=== PATIENT | female | born 1955 | race African-American/Black ===

== ENCOUNTER 2020-05-21 08:00 | Day surgery (SDC) | payer OTHER ==
[2020-05-20 17:41] LABS: Urine Appearance CLOUDY; Urine Bilirubin NEGATIVE (NEG); Urine Blood TRACE (NEG); Urine Color YELLOW; Urine Glucose 1+ (NEG); Urine Protein TRACE (NEG); Urine Specific Gravity 1.015 (1.005-1.030); Urine Urobilinogen 0.2 mg/dL (0.2-1.0); Urine pH 5.5 (5.0-7.0)
[2020-05-20 17:42] LABS: Urine Microscopic Reflex ORDER UMIC
[2020-05-20 17:55] LABS: Absolute Lymphocytes (CBC) 2.5 K/uL (0.7-4.9); Basophils % 0.8 % (0-1.3); Hematocrit 36.2 % (36.0-45.0); Lymphocytes % 17.8 % (15.3-44.8); MPV 7.3 fL (7.6-11.3); Potassium 4.5 mmol/L (3.5-5.1); RBC Red Blood Cell Count 4.09 M/uL (3.86-4.86)
[2020-05-20 18:06] LABS: Urine Bacteria <20 /HPF (<20); Urine Coarse Granular Casts 0-5 /LPF (NONE SEEN); Urine Culture Reflex Order REFLEXED; Urine Mucus 1+ /HPF (NONE SEEN)
--- OUTSIDE RECORDS SUMMARY | 2020-05-21 08:02 | XMS REPORT | Continuity of Care Document ---
:[address] [facility] t Address [address] [place] [address] Dr. Holman. [address] [place] [address] Care Team Providers Name Role Phone Jr LINK, K.H. Attending Clinician Elaine LINK S Attending Clinician Nusrat SAUER, S Attending Clinician Doctor Unassigned, Name Attending Clinician Unavailable Mark LINK, R Attending Clinician Swati TINEO Attending Clinician Problems This patient has no known problems. Allergies, Adverse Reactions, Alerts This patient has no known allergies or adverse reactions. Medications This patient has no known medications. Procedures This patient has no known procedures. Encounters Start End Encounter Admission Attending Care Care Encounter Source Date/Time Date/Time Type Type Clinicians Facility Department ID 2020-05-18 2020-05-18 Telephone Jr [facility] [id number] 00:00:00 00:00:00 Zeny Abraham [id number] [place] [id number] [place] [id number] [address] 2020-05-17 2020-05-17 Emergency EDUARD Henry [id number] 21:53:00 23:29:00 Amanuel Abraham [id number] [place] [id number] [place] [id number] 2020-05-15 2020-05-15 Emergency [facility] [id number] 12:43:00 14:50:00 Lindsay Abraham [id number] [place] [id number] [place] [id number] 2020-05-15 2020-05-15 Orders Doctor GAUDENCIO [id number] 00:00:00 00:00:00 Only Unassigned, MAR[place] [id number] [place] [facility] [id number] 2020-05-12 2020-05-12 Telephone [facility] [id number] 00:00:00 00:00:00 Zeny Abraham [id number] [place] [id number] Profess [id number] nal 9 [facility] 2020-05-11 2020-05-11 Telephone Vinod Flores [facility] [id number] 00:00:00 00:00:00 [place] [id number] [facility] 4.2.7.2.686 [facility] [place] [id number] BLDG. 136 2020-04-29 2020-04-29 Refill [facility] [id number] 00:00:00 00:00:00 Zeny Abraham [id number] [place] 4.2.7.2.686 Professio [id number] nal 059 [facility] 2020-04-29 2020-04-29 Transition Yoselin Longoria [id number] 00:00:00 00:00:00 of Care Azalia Salmeron [id number] [place] [id number] [id number] [facility] 2020-04-28 2020-04-28 Transition Yoselin Longoria [id number] 00:00:00 00:00:00 of Care Azalia Salmeron [id number] [place] [id number] [id number] 2020-04-19 2020-04-19 Orders Doctor GAUDENCIO [id number] 00:00:00 00:00:00 Only Unassigned, MARCO [id number] [place] [facility] [id number] [id number] Results This patient has no known results.
--- OUTSIDE RECORDS SUMMARY | 2020-05-21 08:04 | XMS REPORT | Summary of Care ---
:[address] [facility] Next [employer] Address [address] [place] [address] Care Team Providers Name Role Phone Trish López Primary Care Provider Reason for Visit Reason Comments Refill Request Encounter Details Date Type Department Care Team Description 03/02/2020 Refill [facility] Cardiology- Zeny Norris MD Refill Request [place] [address] [facility], [address] [facility] 106 [address] [place] [address] [place] [address] [phone] Allergies Active Allergy Reactions Severity Noted Date Comments Meperidine Hcl Hives 08/08/2015 documented as of this encounter (statuses as of 03/05/2020) Medications Medication Sig Dispensed Refills Start Date End Date Status GLIPIZIDE ORAL Take 2 mg by mouth 0 Active 2 (two) times daily. insulin glargine inject 80 Units 0 Active (TOUJEO MAX SOLOSTAR) under the skin. 300 unit/mL (3 mL) InPn SERTraline 25 mg Take 50 mg by 0 Active tablet mouth daily. metFORMIN 1,000 mg Take 1,000 mg by 0 Active tablet mouth 2 (two) times daily with meals. lancets 30 gauge Misc USE TO TEST BLOOD 0 09/06/2018 Active GLUCOSE THREE TIMES DAILY ACCU-CHEK SMARTVIEW USE TO TEST BLOOD 0 09/06/2018 Active TEST STRIP strip GLUCOSE THREE TIMES DAILY 90 EASY TOUCH ALCOHOL USE TO TEST BLOOD 0 09/06/2018 Active PREP PADS PadM GLUCOSE THREE TIMES DAILY 90 insulin lispro inject 10 Units 1 Syringe 0 12/04/2018 Active protamine-insulin under the skin 2 lispro 100 unit/mL (two) times daily (50-50) before breakfast injectionIndications: and dinner. Acute cystitis with hematuria insulin lispro, human, inject 10 Units 1 Vial 0 12/04/2018 Active 100 unit/mL under the skin 2 injectionIndications: (two) times daily Hyperglycemia before breakfast and dinner. Additional information Patient taking differently: 10 Units Subcutaneous TIDAC, Reported on 02/25/2020 12:40 AM sitaGLIPtin (JANUVIA) 100 mg Take 1 tablet by 30 tablet 2 12/07 Active tabletIndications: Chest pain, mouth daily. unspecified type nitroglycerin 0.[address] 1 tablet under 30 tablet 3 03/12/2019 Active tablet the tongue every 5 (five) minutes as needed for Chest pain. alum-mag hydroxide-simeth Take 80 mL by mouth 360 mL 0 04/07 Active 200-200-20 mg/5 mL every 6 (six) hours. suspensionIndications: Symptomatic cholelithiasis traMADOL 50 mg Take 1 tablet by 8 tablet 0 04/21/2019 Active tabletIndications: Symptomatic mouth every 6 (six) cholelithiasis hours as needed for Pain (scale 1-3) or Pain (scale 4-6). acetaminophen (TYLENOL) 325 mg Take 2 tablets by 30 tablet 0 0 04/21/2019 Active tabletIndications: Symptomatic mouth every 6 (six) cholelithiasis hours. isosorbide mononitrate 60 mg 24 Take 1 tablet by 90 tablet 2 0 06/04/2019 Active hr tabletIndications: Coronary mouth daily. artery disease involving tribe coronary artery of tribe heart without angina pectoris, Obesity (BMI 30-39.9), Essential hypertension, IDDM (insulin dependent diabetes mellitus), Dyslipidemia, DAHL (dyspnea on exertion), Atypical chest pain amLODIPine 5 mg Take 1 tablet by 180 tablet 2 06/04/2019 Active tabletIndications: Atypical mouth 2 (two) times chest pain daily. atorvastatin 40 mg Take 1 tablet by 90 tablet 3 06/04/2019 Active tabletIndications: Coronary mouth at bedtime. artery disease involving tribe coronary artery of tribe heart without angina pectoris, Obesity (BMI 30-39.9), Essential hypertension, IDDM (insulin dependent diabetes mellitus), Dyslipidemia, DAHL (dyspnea on exertion), Atypical chest pain clopidogrel 75 mg Take 1 tablet by 90 tablet 3 06/04/2019 Active tabletIndications: Coronary mouth daily. artery disease involving tribe coronary artery of tribe heart without angina pectoris, Obesity (BMI 30-39.9), Essential hypertension, IDDM (insulin dependent diabetes mellitus), Dyslipidemia, DAHL (dyspnea on exertion), Atypical chest pain carvedilol 25 mg Take 1 tablet by 180 tablet 3 06/04/2019 Active tabletIndications: Coronary mouth 2 (two) times artery disease involving tribe daily with meals. coronary artery of tribe heart without angina pectoris, Obesity (BMI 30-39.9), Essential hypertension, IDDM (insulin dependent diabetes mellitus), Dyslipidemia, DAHL (dyspnea on exertion), Atypical chest pain ondansetron 4 mg disintegrating Take 1 tablet by 20 tablet 0 0 11/17/2019 Active tabletIndications: Post mouth every 8 (eight) concussion syndrome hours as needed for Nausea and Vomiting (N/V). meclizine 25 mg Take 1 tablet by 20 tablet 0 11/17/2019 Active tabletIndications: Post mouth every 6 (six) concussion syndrome hours. spironolactone (ALDACTONE) 25 Take 1 tablet by 90 tablet 3 Active mg tabletIndications: Coronary mouth daily. artery disease involving tribe coronary artery of tribe heart without angina pectoris, Obesity (BMI 30-39.9) BABY ASPIRIN ORAL Take 1 tablet by 0 Active mouth daily. losartan 50 mg tablet Take 50 mg by mouth 2 0 Active (two) times daily. 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 Abnormal serum level of lipase 09/04/2018 Calculus of gallbladder without cholecystitis without obstruction 09/04/2018 Liver lesion 09/04/2018 Abnormal nuclear stress test 08/10/2018 Essential hypertension 08/08/2018 Dyslipidemia 08/08/2018 Atypical chest pain 08/07/2018 Obesity (BMI 30-39.9) 03/27/2017 documented as of this encounter (statuses as of 03/05/2020) Immunizations Name Administration Dates Next Due Influenza Virus Vaccine Quad .5 mL IM 6+ MO 09/04/2018 Pneumococcal Polysaccharide, PPSV23 (PNEUMOVAX) 09/04/2018 documented as of this encounter Social History Tobacco Use Types Packs/Day Years Used Date Light Tobacco Smoker Smokeless Tobacco: Never Used Alcohol Use Drinks/Week oz/Week Comments Yes Financial Resource Strain Answer Date Recorded How hard is it for you to pay for the very basics like Not h jv at all 02/25/2020 food, housing, medical care, and heating? Food Insecurity Answer Date Recorded Within the past 12 months, you worried that your food would Never true 02/25/2020 run out before you got money to buy more. Within the past 12 months, the food you bought just didn't N ever true 02/25/2020 last and you didn't have money to get more. Transportation Needs Answer Date Recorded In the past 12 months, has lack of transportation kept you f rom No 02/25/2020 medical appointments or from getting medications? In the past 12 months, has lack of transportation kept you f rom No 02/25/2020 meetings, work, or getting things needed for daily living? Sex Assigned at Date Recorded Not on file Job Start Date Occupation Industry Not on file Not on file Not on file Travel History Travel Start Travel End No recent travel history available. COVID-19 Exposure Response Date Recorded In the last month, have you been in contact with No / Unsure 02/24/2020 10:24 PM CDT someone who was confirmed or suspected to have Coronavirus / COVID-19? documented as of this encounter Last Filed Vital Signs Not on filedocumented in this encounter Plan of Treatment Date Type Specialty Care Team Description 05/21/2020 Office Visit Cardiology Zeny Norris MD [address] [place] [phone] Health Maintenance Due Date Last Done Comments HEPATITIS C (HCV) SCREEN 1955 EYE EXAM 1966 URINE MICROALBUMIN 1966 DTaP,Tdap,and Td Vaccines (1 - 1967 Tdap) FOOT EXAM 1974 COLONOSCOPY 2006 Zoster Recombinant Vaccine 2006 (SHINGRIX) (1 of 2) LUNG CANCER SCREEN: Recommended 2011 for age 55-80 with 30 + pack year history PAP SMEAR 03/28/2014 03/28/2011, 01/23/2005 HgA1C 04/21/2019 10/22/2018, 09/03/2018, 08/07/2018 LDL-C 08/07/2019 08/07/2018 INFLUENZA VACCINE (Season Ended) 2020 09/04/2018 Breast Cancer Screening 10/29/2020 10/29/2019 (MAMMOGRAM) Depression Screening 11/21/2020 11/21/2019 CREATININE (SERUM) 02/23/2021 02/24/2020, 04/19/2019, 04/12/2019, Additional history exists PNEUMOCOCCAL 0-64 YEARS COMBINED Completed 09/04/2018 SERIES documented as of this encounter Implants Implanted Type Area Bridge Repair Crew Person Device Identifier Shelf Exp iration Model / Serial Date / Lot Stent STENT documented as of this encounter Results Not on filedocumented in this encounter Visit Diagnoses Diagnosis Coronary artery disease involving tribe coronary artery of tribe heart without angina pectoris Obesity (BMI 30-39.9) Obesity, unspecified documented in this encounter Insurance Payer Benefit Plan / Subscriber ID Effective Phone Address T e Group [facility] [id number] 2018-[facility] [employer] - HEALTHCARE ent Adv HM O MANAGED DUAL COMPLETE MEDICARE O [facility] MEDICAID OF xxxxxxxxx 2019-Pre [phone] Med[place] caid [place] sent [id number] [place] [address] documented as of this encounter
--- OUTSIDE RECORDS SUMMARY | 2020-05-21 08:04 | XMS REPORT | Summary of Care ---
:1955 Author Organization [facility] Address [address] [place] [address] Care Team Providers Name Role Phone Trish López Primary Care Provider Reason for Visit Reason Comments Transition Of Care Encounter Details Date Type Department Care Team Description 02/26/2020 Transition [facility] Care [facility] [address] [address] Allergies Active Allergy Reactions Severity Noted Date Comments Meperidine Hcl Hives 08/08/2015 documented as of this encounter (statuses as of 02/26/2020) Medications Medication Sig Dispensed Refills Start Date [...] tabletIndications: Coronary mouth daily. artery disease involving [place] coronary artery of [place] heart without angina pectoris, Obesity (BMI 30-39.9), Essential hypertension, IDDM (insulin dependent diabetes mellitus), Dyslipidemia, DAHL (dyspnea on exertion), Atypical chest pain amLODIPine 5 mg Take 1 tablet by 180 tablet 2 06/04/2019 Active tabletIndications: Atypical mouth 2 (two) times chest pain daily. atorvastatin 40 mg Take 1 tablet by 90 tablet 3 06/04/2019 Active tabletIndications: Coronary mouth at bedtime. artery disease involving [place] coronary artery of [place] heart without angina pectoris, Obesity (BMI 30-39.9), Essential hypertension, IDDM (insulin dependent diabetes mellitus), Dyslipidemia, DAHL (dyspnea on exertion), Atypical chest pain clopidogrel 75 mg Take 1 tablet by 90 tablet 3 06/04/2019 Active tabletIndications: Coronary mouth daily. artery disease involving [place] coronary artery of [place] heart without angina pectoris, Obesity (BMI 30-39.9), Essential hypertension, IDDM (insulin dependent diabetes mellitus), Dyslipidemia, DAHL (dyspnea on exertion), Atypical chest pain carvedilol 25 mg Take 1 tablet by 180 tablet 3 06/04/2019 Active tabletIndications: Coronary mouth 2 (two) times artery disease involving [place] daily with meals. coronary artery of [place] heart without angina pectoris, Obesity (BMI 30-39.9), [...] tabletIndications: Coronary mouth daily. artery disease involving [place] coronary artery of [place] heart without angina pectoris, Obesity (BMI 30-39.9) BABY ASPIRIN ORAL Take 1 tablet by 0 Active mouth daily. losartan 50 mg tablet Take 50 mg by mouth 2 0 Active (two) times daily. documented as of this encounter (statuses as of 02/26/2020) Active Problems Problem Noted Date Symptomatic cholelithiasis 03/21/2019 Overview: Added automatically from request for romy tamera [id number] IDDM (insulin dependent diabetes mellitus) 10/01/2018 Chest pain 09/04/2018 Coronary artery disease involving [place] coronary nahun ry of [place] heart 09/04/2018 with angina pectoris Abnormal serum level of lipase 09/04/2018 Calculus of gallbladder without cholecystitis without obstruction 09/04/2018 Liver lesion 09/04/2018 Abnormal nuclear stress test 08/10/2018 Essential hypertension 08/08/2018 Dyslipidemia 08/08/2018 Atypical chest pain 08/07/2018 Obesity (BMI 30-39.9) 03/27/2017 documented as of this encounter (statuses as of 02/26/2020) Immunizations Name Administration Dates Next Due Influenza [...] Cardiology Zeny Norris MD [address] [place] [phone] Health Maintenance Due Date Last Done [...] 09/04/2018 Breast Cancer Screening 10/29/2020 10/29/2019 (MAMMOGRAM) CREATININE (SERUM) 02/23/2021 02/24/2020, 04/19/2019, 04/12/2019, Additional history exists PNEUMOCOCCAL 0-64 YEARS COMBINED Completed 09/04/2018 SERIES documented as of this encounter Implants Implanted Type Area Dixonac Operator Device Identifier Shelf Exp iration Model / Serial Date / Lot Stent STENT documented as of this encounter Results Not on filedocumented in this encounter Insurance Payer Benefit Plan / Subscriber ID Effective Phone Address T ype Group Dates [facility] [id number] 2018-[facility] - HEALTHCARE ent Adv HM O MANAGED DUAL COMPLETE MEDICARE HMO [place] MEDICAID OF xxxxxxxxx 2019-Pre [phone] Med[place] caid [place] sent [phone] [place] [address] documented as of this encounter
--- OUTSIDE RECORDS SUMMARY | 2020-05-21 08:04 | XMS REPORT | Summary of Care ---
:1955 Author Organization [facility] [employer] [facility] Address [address] [place] [address] Care Team Providers Name Role Phone Trish Alatorre Primary Care Provider Reason for Referral Other (Routine) Status Reason Specialty Diagnoses / Referred By Referred To Procedures Contact Contact New Request Diagnoses Chest pain, unspecified type Michael Martin MD Cai, Qiangjun, MD Procedures Discharge Follow-up: Specialty Provider FREDI MOHAN; 2 Weeks [address] [address] [address] Phone: [place], [place] [phone] Fax: (Routine) Status Reason Specialty Diagnoses / Referred By Referred To Procedures Contact Contact New Request Diagnoses Chest pain, unspecified type Michael Martin MD Crook, Debra Kay Procedures Discharge Follow-up: PCP JANNIE ALATORRE; 1 Week 301 [facility] 210 [facility] 300 [address] [place], [place] Phone: [phone] Phone: Fax: Radiology Services (STAT) Status Reason Specialty Diagnoses / Referred By Referred To Procedures Contact Contact New Request Diagnostic Diagnoses Chest pain, unspecified type Adrian Romero, Radiology Procedures Chest 1 View 301 [facility] [address] [place] [address] Reason for Visit Reason Comments Arm Pain left Back Pain Auth/Cert Status Reason Specialty Diagnoses / Referred By Referred To Procedures Contact Contact Emergency Medicine [facility] [address] [place] [address] [place] [phone] Fax: Encounter Details Date Type Department Care Team Description 02/24/2020 - Emergency ADC Medicine Surgery Jalen Romero MD [address] [place] [address] [address] [place] [address] Chest pain 02/25/2020 Unit Nina Bates MD [address] [place] [address]. [place] [address] [place] [address] Dr [place], [place] [id number] Allergies Active Allergy Reactions Severity Noted Date Comments Meperidine Hcl Hives 08/08/2015 documented as of this encounter (statuses as of 02/25/2020) Medications Medication Sig Dispensed Refills Start Date [...] Reported on 02/25/2020 12:40 AM sitaGLIPtin (JANUVIA) Take 1 tablet by 30 tablet 2 12/26/2018 Active 100 mg mouth daily. tabletIndications: Chest pain, unspecified type nitroglycerin 0.[address] 1 tablet 30 tablet 3 03/12/2019 Active sublingual tablet under the tongue every 5 (five) minutes as needed for Chest pain. alum-mag Take 80 mL by 360 mL 0 04/21/2019 Activ e hydroxide-simeth mouth every 6 200-200-20 mg/5 mL (six) hours. suspensionIndications: Symptomatic cholelithiasis traMADOL 50 mg Take 1 tablet by 8 tablet 0 04/21/2019 Active tabletIndications: mouth every 6 Symptomatic (six) hours as cholelithiasis needed for Pain (scale 1-3) or Pain (scale 4-6). acetaminophen (TYLENOL) Take 2 tablets 30 tablet 0 04/21/2019 Active 325 mg by mouth every 6 tabletIndications: (six) hours. Symptomatic cholelithiasis isosorbide mononitrate Take 1 tablet by 90 tablet 2 06/04/2019 Active 60 mg 24 hr mouth daily. tabletIndications: Coronary artery disease involving choctaw coronary artery of choctaw heart without angina pectoris, Obesity (BMI 30-39.9), Essential hypertension, IDDM (insulin dependent diabetes mellitus), Dyslipidemia, DAHL (dyspnea on exertion), Atypical chest pain amLODIPine 5 mg Take 1 tablet by 180 tablet 2 06/04/2019 Active tabletIndications: mouth 2 (two) Atypical chest pain times daily. atorvastatin 40 mg Take 1 tablet by 90 tablet 3 06/04/2019 Active tabletIndications: mouth at Coronary artery disease bedtime. involving choctaw coronary artery of choctaw heart without angina pectoris, Obesity (BMI 30-39.9), Essential hypertension, IDDM (insulin dependent diabetes mellitus), Dyslipidemia, DAHL (dyspnea on exertion), Atypical chest pain clopidogrel 75 mg Take 1 tablet by 90 tablet 3 06/04/2019 Active tabletIndications: mouth daily. Coronary artery disease involving choctaw coronary artery of choctaw heart without angina pectoris, Obesity (BMI 30-39.9), Essential hypertension, IDDM (insulin dependent diabetes mellitus), Dyslipidemia, DAHL (dyspnea on exertion), Atypical chest pain carvedilol 25 mg Take 1 tablet by 180 tablet 3 06/04/2019 Active tabletIndications: mouth 2 (two) Coronary artery disease times daily with involving choctaw meals. coronary artery of choctaw heart without angina pectoris, Obesity (BMI 30-39.9), Essential hypertension, IDDM (insulin dependent diabetes mellitus), Dyslipidemia, DAHL (dyspnea on exertion), Atypical chest pain ondansetron 4 mg Take 1 tablet by 20 tablet 0 11/17/2019 Active disintegrating mouth every 8 tabletIndications: Post (eight) hours as concussion syndrome needed for Nausea and Vomiting (N/V). meclizine 25 mg Take 1 tablet by 20 tablet 0 11/17/2019 Active tabletIndications: Post mouth every 6 concussion syndrome (six) hours. spironolactone Take 1 tablet by 90 tablet 3 11/21/2019 Active (ALDACTONE) 25 mg mouth daily. tabletIndications: Coronary artery disease involving choctaw coronary artery of choctaw heart without angina pectoris, Obesity (BMI 30-39.9) BABY ASPIRIN ORAL Take 1 tablet by 0 Active mouth daily. losartan 50 mg tablet Take 50 mg by 0 Active mouth 2 (two) times daily. pregabalin (LYRICA) 75 Take 75 mg by 0 05/ 20 Discontinued mg capsule mouth 2 (two) /2019 (Hyun ent times daily. Reporte d) ranitidine 150 mg Take 150 mg by 0 05/20 Discontinued tablet mouth 2 (two) (Patie nt times daily. Reporte d) Magnesium Oxide 420 mg Take 800 mg by 60 tablet 0 12/26/2018 0 20 Discontinued TabIndications: Chest mouth daily. (Patient pain, unspecified type Reported) alum-mag Take 30 mL by 360 mL 0 04/21/201902/24 Disco ntinued hydroxide-simeth mouth every (MAALOX ADVANCED) (six) hours as 200-200-20 mg/5 mL needed for suspensionIndications: Indigestion or Obesity (BMI 30-39.9), Gas. Symptomatic cholelithiasis Hospital, Clinic, Ordered Dose Route Frequency Start Date End Date Status or Other Facility Administered Medication ceFAZolin (ANCEF) 1000 mg IVPB O.R. HOLDING 04/21/2019 02/25/20 2 Discontinued 1,000 mg in NaCl ONCE 0 0.9% (NS) 50 mL MINI-BAG documented as of this encounter (statuses as of 02/25/2020) Active Problems Problem Noted Date Symptomatic cholelithiasis 03/21/2019 Overview: Added automatically from request for romy philip [id number] IDDM (insulin dependent diabetes mellitus) 10/01/2018 Chest pain 09/04/2018 Coronary artery disease involving choctaw coronary nahun ry of choctaw heart 09/04/2018 with angina pectoris Abnormal serum level of lipase 09/04/2018 Calculus of gallbladder without cholecystitis without obstruction 09/04/2018 Liver lesion 09/04/2018 Abnormal nuclear stress test 08/10/2018 Essential hypertension 08/08/2018 Dyslipidemia 08/08/2018 Atypical chest pain 08/07/2018 Obesity (BMI 30-39.9) 03/27/2017 documented as of this encounter (statuses as of 02/25/2020) Immunizations Name Administration Dates Next Due Influenza Virus Vaccine Quad .5 mL IM 6+ MO 09/04/2018 Pneumococcal Polysaccharide, PPSV23 (PNEUMOVAX) 09/04/2018 documented as of this encounter Social History Tobacco Use Types Packs/Day Years Used Date Light Tobacco Smoker Smokeless Tobacco: Never Used Tobacco Cessation: Ready to Quit: No; Co unseling Given: No Alcohol Use Drinks/Week oz/Week Comments Yes Financial [...] of this encounter Last Filed Vital Signs Vital Sign Reading Time Taken Comments Blood Pressure 130/89 02/25/2020 4:01 PM CDT Pulse 76 02/25/2020 4:01 PM CDT Temperature 36.2 C (97.2 F) 02/25/2020 4:01 PM CDT Respiratory Rate 18 02/25/2020 4:01 PM CDT Oxygen Saturation 97% 02/25/2020 4:01 PM CDT Inhaled Oxygen - - Concentration Weight 89.8 kg (198 lb) 02/24/2020 10:30 Simultaneous f iling. PM CDT User may not hav e seen previous data. 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 AttachmentsThe following attachments cannot be sent through Care Everywhere. Chest Pain, Uncertain Cause (Ghanaian)documented in this encounter Progress Notes Radha Alexander - 02/25/2020 12:45 PM CDTRoutine rounding visit with patient who shared a bit of her narrative. During her narrative, patientshared concerned for a loved one which she stated she believes "has me here". She also shared her copra processor ing strategies when she is concerned about something. Patient seemed peaceful and joyful. Her charlotte in God gives her meaning and purpose. Database Architect facilitated story telling; reinforced appropriate coping strategies, explored issues of charlotte and belief, and encouraged self-care. Future in shop service technician supportis available if needed/wanted. Church Preference: [employer] TSApril aguirre LBSW - 02/25/2020 11:12 AM CDTSubjective Patient ID: Lauren Nolen is a 64 year old female. Care Management Social Functional Assessment Patient Name: Lauren Nolen Age: [age] year old Sex: female Patient's Previous Admission Date at [facility]: 08/10/2018 Current diagnosis and co-morbidities: chest pain Readmission Questions: Was patient discharged from any acute care hospital within the last 30 days: No Social Functional Assessment: Primary language spoken/preferred: Ghanaian Mental Status: Alert & Oriented to Person,Place & Time Information given by: Self Patient's support system: Other Name and number of support system: mario Loza [phone] Primary Radiology Rn: Self MPOA: No Living Arrangement: Home Address of living arrangement : [address] [place] [id number] Persons living in home: Self Barriers to returning home: None Baseline functional status- ambulation: Independent Functional status-baseline personal care: Independent Baseline functional status- driving: Independent Baseline functional status- grocery shopping: Independent Functional status-baseline housekeeping: Independent Functional status-baseline meal prep: Independent Current functional status same as prior: Yes Do you have a PCP?: Yes Name of PCP: Jannie Alatorre [facility] Care Agency: No Provider Services: No DME Company: No Equipment: None Hemodialysis: No Community resources utilized: None Funding Resources: Medicare Replacement;Medicaid Prescription coverage plan: Medicaid-3 slots Pharmacy where meds are filled: Other Other pharmacy: [facility] Anticipated services prior to disharge: Continue Medical Eval Expected mode of discharge transportation: Same as support system Additional Recommendations for DC: Medical clearance Additional info required for discharge planning: Pending medical evaluation Recommended discharge plan: Home SFA Complete: Social Functional Assessment complete: Yes Alcohol Use Screening (AUDIT-C) How often do you have a drink containing alcohol?: Never SCORE: 0 Did patient elect to have resources provided: No Role of Care Management explained. Any issues or concerns with obtaining/affording your medications at home: no. Are you or your support system able to corn picker medications at discharge: yes. Review of Systems Objective Physical Exam Assessment/Plan Home, no needs to report JOHN Lockhart Clinical Leader - Care Management [facility] [phone] [email or web address] documented in this encounter Plan of Treatment Date Type Specialty Care Team Description 05/21/2020 Office Visit Cardiology Zeny Norris MD [address] [place] [address] [place] [address] [phone] Name Type Priority Associated Diagnoses Date/Ti me URINE CULTURE LAB STAT Chest pain, unspecified typ e 02/24/2020 10:37 PM CDT Name Type Priority Associated Diagnoses Order S chedule URINE CULTURE LAB NENA Chest pain, unspecified ASA P for 1 Occurrences type starting 2019 until 0 CBC with Differential LAB Routine EVERY MORNING AT 0400 for 5 Occurrenc es starting 2019 until 0 Basic Metabolic Panel LAB Routine EVERY MORNING AT 0400 (NA, K, CL, CO2, GLUCOSE, fo r 5 Occurrences BUN, CREATININE, CA) startin g 02/26/2020 until 0 TROPONIN I LAB Routine EVERY 6 HOURS ( START TIME ADJUSTABLE ) START TIME ADJUSTABLE for 2 Occurrences sta rting 02/25/2020 unti l 02/25/2020, 1 c ompleted Glycosylated Hemoglobin LAB Routine ONCE for 1 Occurrences (A1C) starting 2019 until 0 ADC,CLC OR LCC ONLY - LAB Routine ONCE f or 1 Occurrences INFLUENZA A & B DIRECT start ing 02/25/2020 ANTIGEN until 0 Health Maintenance Due Date Last Done Comments [...] of this encounter Implants Implanted Type Area Department Director Device Identifier Shelf Exp iration Model / Serial Date / Lot Stent STENT documented as of this encounter Procedures Procedure Name Priority Date/Time Associated Comments Diagnosis POCT GLUCOSE Routine 02/25/2020 4:02 Results for this (AUTOMATED) PM CDT procedure are i n the results section. ECHO ROUTINE Routine 02/25/2020 11:09 Chest pain, W/DOPPLER COLOR AM CDT unspecified type POCT GLUCOSE Routine 02/25/2020 10:43 Results for this (AUTOMATED) AM CDT procedure are i n the results section. POCT GLUCOSE Routine 02/25/2020 7:57 Results for this (AUTOMATED) AM CDT procedure are i n the results section. TROPONIN I Routine 02/25/2020 3:15 Results for this AM CDT procedure are i n the results section. XR CHEST 1 VW STAT 02/24/2020 11:18 Chest pain, Results fo r this PM CDT unspecified type procedure a re in the results section. COVID-19 (PCR STAT 02/24/2020 10:37 Chest pain, Results fo r this MOLECULAR TESTING) PM CDT unspecified type proce dure are in the results section. ADC / LCC - DRUG STAT 02/24/2020 10:37 Chest pain, Results for this SCREEN TRIAGE PM CDT unspecified type procedure are in the results section. URINALYSIS STAT 02/24/2020 10:37 Chest pain, Results for this PM CDT unspecified type procedure a re in the results section. CBC WITH STAT 02/24/2020 10:34 Chest pain, Results for this DIFFERENTIAL PM CDT unspecified type procedure a re in the results section. ACTIVATED PARTIAL STAT 02/24/2020 10:34 Chest pain, Result s for this THRMPLAS AMBER PM CDT unspecified type procedure a re in the results section. PROTHROMBIN TIME / STAT 02/24/2020 10:34 Chest pain, Resul ts for this INR PM CDT unspecified type procedure a re in the results section. CBC WITH Routine 02/24/2020 10:34 Chest pain, Results for this DIFFERENTIAL PM CDT unspecified type procedure a re in the results section. ETHANOL STAT Add-On 02/24/2020 10:34 Chest pain, Results for this PM CDT unspecified type procedure a re in the results section. BASIC METABOLIC STAT 02/24/2020 10:34 Chest pain, Results for this PANEL (NA, K, CL, PM CDT unspecified type proced ure are in CO2, GLUCOSE, BUN, the resul ts CREATININE, CA) section. HEPATIC FUNCTION STAT 02/24/2020 10:34 Chest pain, Results for this PANEL (51470) PM CDT unspecified type procedure are in (ALB,T.PRO,BILI the results T,BU/BC,ALT,AST,ALK section. PHOS) TROPONIN I STAT 02/24/2020 10:34 Chest pain, Results for this PM CDT unspecified type procedure a re in the results section. LIPASE STAT 02/24/2020 10:34 Chest pain, Results for this PM CDT unspecified type procedure a re in the results section. EKG-12 LEAD Routine 02/24/2020 10:33 PM CDT EKG-12 LEAD STAT 02/24/2020 10:30 PM CDT CONSENT/REFUSAL FOR Routine 02/24/2020 10:09 DIAGNOSIS AND PM CDT TREATMENT NOTICE OF PRIVACY Routine 02/24/2020 10:08 PRACTICES PM CDT documented in this encounter Results POCT GLUCOSE (AUTOMATED) (02/25/2020 4:02 PM CDT) Pathologist Sig nature POCT GLU 245 (H) 70 - 110 mg/dL [facility] Specimen Blood Performing Organization Address [facility] [address]/[facility] Phone Number [facility] CLIA: [id number], [address] [place] [address] POCT GLUCOSE (AUTOMATED) (02/25/2020 10:43 AM CDT) Pathologist Sig nature POCT GLU 313 (H) 70 - 110 mg/dL [facility] Specimen Blood Performing Organization Address City/[facility] [address]/[facility] Phone Number [facility] CLIA: [id number], [address] [place], [place] [address] POCT GLUCOSE (AUTOMATED) (02/25/2020 7:57 AM CDT) Pathologist Sig nature POCT GLU 165 (H) 70 - 110 mg/dL [facility] Specimen Blood Performing Organization Address [facility] [address]/[facility] Phone Number [facility] CLIA: [id number], [address] [place], [place] [address] [facility] [address] TROPONIN I (02/25/2020 3:15 AM CDT) Pathologist Sig nature TROPONIN I <0.012 <=0.034 ng/mL [facility] Specimen Blood - ARM, RIGHT Narrative Performed At Equal or Less than 0.034 ng/ml---Normal [facility] Note: Cardiac troponin begins to rise 3-4 hours after the onset of ischemia. Repeat in 4-6 hours if the sample was drawn within 3-4 hours of the onset of the symptom and found normal. Between 0.035 and 0.120 ng/mL--- Borderline. Questionable myocardial injury or necros is Note: Serial measurement may be necessary to confirm or exclude the diagnosis of myocardial injury or necrosis; Clinical correlation (symptoms, EKGs, imaging studies, and others) required; Repeat in 4-6 hours if clinically indicated. Equal or Higher than 0.121 ng/mL---Abnormal. Myocardial Injury or Necrosis Likely Biotin has been reported to cause a negative bias, interpret results relative to patient's use of biotin. Performing Organization Address [facility] [address]/[facility] Phone Number [facility] CLIA: [id number], [address] [place] [address] [address] [facility] Chest 1 View (02/24/2020 11:18 PM CDT) Specimen Impressions Performed At PACS/VR/DOSE No acute cardiopulmonary process or inte rval abnormality. Preliminary Report Dictated by Resident: Wilbert Millan I, Mundo Denise MD., have reviewed this study and agree with the above report. Narrative Performed At EXAM: XR CHEST 1 VW PACS/VR/DOSE CLINICAL INDICATION: chest pain COMPARISON: 04/19/2019 TECHNIQUE: A frontal view of the chest w as obtained FINDINGS: No focal consolidation, pleural effusion , or pneumothorax. The cardiac silhouette is normal in size . No acute osseous abnormality. Procedure Note [facility], Radiant Results Inft User - 2019 2:25 AM CDT EXAM: XR CHEST 1 VW CLINICAL INDICATION: chest pain COMPARISON: 04/19/2019 TECHNIQUE: A frontal view of the chest w as obtained FINDINGS: No focal consolidation, pleural effusion , or pneumothorax. The cardiac silhouette is normal in size . No acute osseous abnormality. IMPRESSION No acute cardiopulmonary process or inte rval abnormality. Preliminary Report Dictated by Resident: Wilbert Millan I, Mundo Denise MD., have reviewed [facility] study and agree with the above report. Performing Organization Address [facility] [address]/[facility] Phone Number PACS/VR/DOSE URINALYSIS (02/24/2020 10:37 PM CDT) Pathologist Sig nature APPEARANCE Hazy (A) Clear [facility] COLOR Yellow Yellow [facility] PH 7.0 4.8 - 8.0 [facility] SP GRAVITY 1.013 1.003 - 1.030 [facility] GLU U QUAL Normal Normal [facility] BLOOD 1+ (A) Negative [facility] KETONES Negative Negative [facility] PROTEIN Negative Negative [facility] UROBILIN Normal Normal [facility] BILIRUBIN Negative Negative [facility] NITRITE Negative Negative [facility] LEUK JOYCE 250/uL (A) Negative [facility] RBC/HPF 10 (H) 0 - [address] [facility] WBC/HPF 61 (H) 0 - [address] [facility] BACTERIA Moderate (A) Negative [facility] SQ EPITH [address] [facility] YEAST BUD 5 (H) <=[address] [facility] Specimen Urine - URINE, CLEAN CATCH Performing Organization Address [facility] [address]/[facility] Phone Number [facility] CLIA: [id number], [address] [place], [place] [address] ADC / L[facility] - DRUG SCREEN TRIAGE (02/24/2020 10:37 PM CDT) Pathologist Sig nature BENZO U Negative Negative [facility] MICHELLE U Negative Negative [facility] AMPHET Negative Negative [facility] THC Negative Negative [facility] METHADONE Negative Negative [facility] Meth U Negative Negative [facility] OPIATES Negative Negative [facility] Cocaine Metabolite Negative Negative [facility] PROPOXY Negative Negative [facility] Tric U Negative Negative [facility] PCP Negative Negative [facility] OXYCOD Negative Negative [facility] Specimen Urine - URINE, CLEAN CATCH Narrative Performed At Urine Drug Cutoff Ranges [facility] Benzodiazepines: 150 ng/mL Barbiturates: 200 ng/mL Amphetamine: 500 ng/mL Cannabinoids: 50 ng/mL Methadone: 200 ng/mL Methamphetamine: 500 ng/mL Opiates: 100 ng/mL or 2000 ng/mL Cocaine: 150 ng/mL Propoxyphene: 300 ng/mL Tricyclics: 300 ng/mL Oxycodone: 100 ng/mL PCP: 25 ng/mL The results are to be used only for medical (i.e., treatment) purposes. Unconfirmed screening results must not be used for non-medical purposes (e.g., employment testing, legal testing). Performing Organization Address [facility] [address]/[facility] Phone Number [facility] CLIA: [id number], [address] [place] [address] [address] [facility] [address] CORONAVIRUS COVID-19 TESTING (02/24/2020 10:37 PM CDT) SARS-CoV-2 Rapid ID Not Detected Not Detected [facility] Specimen Swab - NASOPHARYNGEAL SWAB Narrative Performed At [facility] COVID-19 Assay is an isothermal nucleic [facility] acid amplification test intended for the qualitative detection of nucleic acid from SARS-CoV-2 viral RNA in nasopharyngeal (HEAD OF SALES) specimens. It is used under Emergency Use Authorization (EUA) by FDA. The limit of detection (LOD) of the assay is 125 Genome Equivalents/mL. A positive result is indicative of the presence of SARS-CoV-2 RNA. Clinical correlation with patient history and other diagnostic information is necessary to determine patient infection status. A negative (Not Detected) result does not preclude SARS-CoV-2 infection. Clinical correlation with patient history and other diagnostic information should be used in patient management decisions. Invalid: Please collect a new specimen for repeat patient testing if clinically indicated. Performing Organization Address [facility] [address]/[facility] Phone Number [facility] CLIA: [id number], [address] [place], [place] [address] [address] [facility] ETHANOL (02/24/2020 10:34 PM CDT) Pathologist Sig nature ALCOHOL <10 mg/dL [facility] Specimen Blood - VENOUS Narrative Performed At <[address] [facility] LABORATORY 50-100 Toxic >100 Depression of CENTRAL SERVICE TECH >400 Fatalities Reported Performing Organization Address City/State/Zipcode Phone Number [facility] CLIA: [id number], [address] [place], [place] [address] CBC WITH DIFFERENTIAL (02/24/2020 10:34 PM CDT) Pathologist Sig nature WBC 10.82 4.30 - 11.10 [facility] 10*3/L [facility] RBC 4.00 3.93 - 5.25 [facility] 10*6/L [facility] HGB 11.6 11.6 - 15.0 [facility] g/dL [facility] HCT 35.7 35.7 - 45.2 % [facility] MCV 89.3 80.6 - 95.[address] [facility] MCH 29.0 25.9 - 32.[address] [facility] MCHC 32.5 31.6 - 35.1 [facility] g/dL [facility] RDW-SD 41.1 39.0 - 49.[address] [facility] RDW-CV 12.4 12.0 - 15.5 % [facility] PLT 396 (H) 166 - 358 [facility] 10*3/L [facility] MPV 8.7 (L) 9.5 - 12.[address] [facility] NRBC/100 WBC 0.0 0.0 - 10.0 /100 [facility] WBCs [facility] NRBC x10^3 <0.01 10*3/L [facility] GRAN MAT (NEUT) % 66.3 % [facility] IMM GRAN % 0.60 % [facility] LYMPH % 22.3 % [facility] MONO % 8.6 % [facility] EOS % 1.9 % [facility] BASO % 0.3 % [facility] GRAN MAT x10^3(ANC) 7.18 (H) 1.88 - 7.09 [facility] 10*3/uL HOSPITAL LABORATORY IMM GRAN x10^3 0.06 0.00 - 0.06 [facility] 10*3/uL HOSPITAL LAB[facility]ORY LYMPH x10^3 2.41 1.32 - 3.29 [facility] 10*3/uL HOSPITAL LAB[facility]ATORY MONO x10^3 0.93 (H) 0.33 - 0.92 [facility] 10*3/uL HOSPITAL LAB[facility]ORY EOS x10^3 0.21 0.03 - 0.39 [facility] 10*3/uL HOSPITAL LAB[facility]ORY BASO x10^3 0.03 0.01 - 0.07 [facility] 10*3/uL HOSPITAL LABORATORY Specimen Blood - VENOUS Performing Organization Address City/State/Zipcode Phone Number [facility] CLIA: [id number], [address] [place] [address] Prothrombin Time (PT) / INR (02/24/2020 10:34 PM CDT) PROTIME PATIENT 12.5 12.0 - 14.7 [facility] LABORATORY INR 1.0Comment: Normal [facility] INR <1.1; Warfarin [facility] Therapeutic range LABORATORY 2.0 to 3.0 or 2.5 to 3.5, depending upon the indications. Specimen Blood - VENOUS Performing Organization Address [facility] [address]/[facility] Phone Number [facility] CLIA: [id number], [address] [place] [address] aPTT (02/24/2020 10:34 PM CDT) Pathologist Sig nature APTT Patient 28 23 - [address] [facility] Specimen Blood - VENOUS Narrative Performed At The [facility] patient population mean normal value [facility] for aPTT is 30 seconds. Performing Organization Address [facility] [address]/Zipcode Phone Number [facility] CLIA: [id number], [address] [place] [address] Troponin I (02/24/2020 10:34 PM CDT) Pathologist Sig nature TROPONIN I <0.012 <=0.034 ng/mL [facility] Specimen Blood - VENOUS Narrative Performed At Equal or Less than 0.034 ng/ml---Normal [facility] Note: Cardiac troponin begins to rise 3-4 hours after the onset of ischemia. Repeat in 4-6 hours if the sample was drawn within 3-4 hours of the onset of the symptom and found normal. Between 0.035 and 0.120 ng/mL--- Borderline. Questionable myocardial injury or necros is Note: Serial measurement may be necessary to confirm or exclude the diagnosis of myocardial injury or necrosis; Clinical correlation (symptoms, EKGs, imaging studies, and others) required; Repeat in 4-6 hours if clinically indicated. Equal or Higher than 0.121 ng/mL---Abnormal. Myocardial Injury or Necrosis Likely Biotin has been reported to cause a negative bias, interpret results relative to patient's use of biotin. Performing Organization Address City/[facility] [address]/[facility] Hospital[facility]ofl Phone Number [facility] CLIA: [id number], [address] [place] [address] Lipase Serum (02/24/2020 10:34 PM CDT) Pathologist Sig [facility] LIPASE 39 0 - 220 U/L [facility]OR[facility] Specimen Blood - VENOUS Performing Organization Address [facility] [address]/[facility] Phone Number [facility] CLIA: [id number], [address] [place] [address] Hepatic Function Panel (ALB, T.PRO, BILI T, BU/BC, ALT, AST, ALK PHOS) (02/24/2020 10:34 PM CDT) Pathologist Sig [facility] TOTAL BILI 0.4 0.1 - 1.1 mg/dL [facility] BILI UNCON 0.5 0.1 - 1.1 mg/dL [facility] BILI CONJ 0.0 0.0 - 0.3 mg/dL [facility] T PROTEIN 8.0 6.3 - 8.2 g/dL [facility] ALBUMIN 4.5 3.5 - 5.0 g/dL [facility] ALK PHOS 104 34 - 122 U/L [facility] ALTv 18 5 - 35 U/L [facility] AST(SGOT) 20 13 - 40 U/L [facility] Specimen Blood - VENOUS Performing Organization Address City/State/Zipcode Phone Number [facility] CLIA: [id number], [address] [place], [place] [address] Basic Metabolic Panel (NA, K, CL, CO2, GLUCOSE, BUN, CREATININE, CA) (02/24/2020 10:34 PM CDT) NA 144 135 - 145 [facility] mmol/L [facility] K 4.5 3.5 - 5.0 [facility] mmol/L [facility] CL 104 98 - 108 mmol/L [facility] CO2 TOTAL 30 23 - 31 mmol/L [facility] AGAP 10 2 - 16 [facility] BUN 23 7 - 23 mg/dL [facility] GLUCOSE 160 (H) 70 - 110 mg/dL [facility] CREATININE 1.27 (H) 0.50 - 1.04 [facility] mg/dL [facility] CALCIUM 10.1 8.6 - 10.6 [facility] mg/dL [facility] LAB[facility] eGFR Calculation 42.5 mL/min/1.73m2 [facility] (Non-[facility] LABORATORY Fijian) eGFR Calculation 51.5 mL/min/1.73m2 [facility] () [facility] LABOR[facility] Specimen Blood - VENOUS Narrative Performed At Association of Glomerular Filtration Rate (GFR) [facility] LABORATORY and Staging of Kidney Disease* + + +- + | GFR (mL/min/1.73 m2) | With Kidney Damage | Without Kidney Damage + + +- + | >90 | Stage one | Normal + + +- + | 60-89 | Stage two | Decreased GFR + + +- + | 30-59 | Stage three | Stage three + + +- + | 15-29 | Stage four | Stage four + + +- + | <15 (or dialysis) | Stage five | Stage five + + +- + *Each stage assumes the associated GFR level has been in effect for at least three months. Stages 1 to 5, with or without kidney disease, indicate chronic kidney disease. Notes: Determination of stages one and two (with eGFR >59mL/min/1.73 m2) requires estimation of kidney damage for at least three months as defined by structural or functional abnormalities of the kidney, manifested by either: Pathological abnormalities or Markers of kidney damage (including abnormalities in the composition of the blood or urine or abnormalities in imaging tests). Performing Organization Address City/State/Zipcode Phone Number [facility] CLIA: [id number], [address] [place], [place] [address] documented in this encounter Visit Diagnoses Diagnosis Chest pain, unspecified type - Primary Urinary tract infection with hematuria, site unspecified Abnormal nuclear stress test Other nonspecific abnormal cardiovascula r system function study Coronary artery disease involving [place] coronary artery of [place] heart with angina pectoris Dyslipidemia Other and unspecified hyperlipidemia Essential hypertension Unspecified essential hypertension IDDM (insulin dependent diabetes mellitu s) Type II or unspecified type diabetes mercedes litus without mention of complication, not stated as uncontrolled Obesity (BMI 30-39.9) Obesity, unspecified documented in this encounter Administered Medications Medication Order MAR Action Action Date Dose Rate Site acetaminophen (TYLENOL) tablet 650 mg 650 mg, Oral, Q6HPRN, Starting Sun at 0113, Until Discontinued, Routine, Pain (scale 1-3) amLODIPine (NORVASC) tablet 5 mg Given 02/25/2020 8:10 AM CDT 5 mg 5 mg, Oral, BID, First dose on Sun02/25/20 at 0800, Until Discontinued, Routine aspirin chewable tablet 81 mg Given 02/25/2020 8:10 AM CDT 81 mg 81 mg, Oral, DAILY, First dose on Sun02/25/20 at 0900, Until Discontinued, Routine carvediloL (COREG) tablet 25 mg Given 02/25/2020 5:22 PM CDT 25 mg 25 mg, Oral, BID MEALS, First dose on Sun02/25/20 at 0800, Until Discontinued, Routine Given 02/25/2020 8:11 AM CDT 25 mg cefTRIAXone (ROCEPHIN) 1,000 mg in NaCl 0.9% (NS) 50 mL MINI-BAG 1,000 mg, IV Piggyback, Q24H ABX, First dose on Emma at 0000, Until Discontinued, 50 mL, Reason for Anti-Infective: Empiri c Therapy for Suspected Infection, Empiric Therapy Site: Urine, Duration of th erapy: 7 days clopidogreL (PLAVIX) tablet 75 mg Given 02/25/2020 8:11 AM CDT 75 mg 75 mg, Oral, DAILY, First dose on Sun02/25/20 at 0900, Until Discontinued, Routine dextrose 50 % in water (D50W) injection 25 mL 25 mL, Slow IV Push, PRN, Starting Sun at 0558, Until Discontinued, NENA, Blood Glucose < or = 70 mg/dL and patien t is unable to swallow or has mental status changes. enoxaparin (LOVENOX) injection 40 mg Given 02/25/2020 8:18 AM CDT 40 mg Abdo men-SC 40 mg, Subcutaneous, DAILY, First dose on Sun02/25/20 at 0900, Until Discontinued, Routine glipiZIDE XL (GLUCOTROL XL) tablet 5 mg Given 02/25/2020 11:36 AM CDT 5 mg 5 mg, Oral, QAM WITH BREAKFAST, First dose on Sun02/25/20 at 1130, Until Discontinued glucagon (GLUCAGEN DIAGNOSTIC KIT) injec tion 1 mg 1 mg, Intramuscular, PRN, Starting Sun at 0558, Until Discontinued, NENA, Blood Glucose < or = 70 mg/dL and patient is unable to swallow or has mental changes. insulin glargine (LANTUS U-100) Given 02/25/2020 11:38 AM CDT 80 Units Abdomen-SC injection 80 Units 80 Units, Subcutaneous, DAILY, First dose on Sun02/25/20 at 1145, Until Discontinued morpHINE injection 2 mg Given 02/25/2020 8:11 AM CDT 2 mg 2 mg, Slow IV Push, Q4HPRN, Starting Sun02/25/20 at 0114, Until Emma 02/26/20 at 0113, Routine, Chest pain nitroglycerin (NITROSTAT) sublingual tab let 0.4 mg 0.4 mg, Sublingual, Q5MIN PRN, Starting Sun02/25/20 at 0136, Until Discontinued, Routine, Chest pain SERTraline (ZOLOFT) tablet 50 mg Given 02/25/2020 8:11 AM CDT 50 mg 50 mg, Oral, DAILY, First dose on Sun02/25/20 at 0900, Until Discontinued, Routine SITagliptin (JANUVIA) tablet 100 mg Given 02/25/2020 11:38 AM CDT 100 mg 100 mg, Oral, DAILY, First dose on Sun02/25/20 at 1145, Until Discontinued, Routine Sliding Scale Insulin-Regular + Given 02/25/2020 5:19 PM CDT 4 Units Abdomen-SC Fsbg Testing Subcutaneous, AC+HS, First dose on Sun02/25/20 at 0730, Until Discontinued, Routine Given 02/25/2020 11:37 AM CDT 8 Units Abdo men-SC spironolactone (ALDACTONE) tablet 25 mg Given 02/25/2020 8:10 AM CDT 25 mg 25 mg, Oral, DAILY, First dose on Sun02/25/20 at 0900, Until Discontinued, Routine traMADol (ULTRAM) tablet 50 mg Given 02/25/2020 3:20 AM CDT 50 mg 50 mg, Oral, Q8HPRN, Starting Sun02/25/20 at 0114, Until Sun02/27/20 at 0113, Routine, Pain (scale 4-6) Medication Order MAR Action Action Date Dose Rate Site aspirin tablet 325 mg Given 02/24/2020 11:40 PM CDT 325 mg 325 mg, Oral, ONCE, 1 dose, Sun02/25/20 at 0030, STAT cefTRIAXone (ROCEPHIN) 1,000 mg in NaCl Given 02/24/2020 11:42 P M CDT 1,000 mg 0.9% (NS) 50 mL MINI-BAG 1,000 mg, IV Piggyback, ONCE, 1 dose, Sun02/25/20 at 0030, 50 mL, Reason for Anti-Infective: Documented Infection, Documented Infection Site: Urine, Duration of Therapy: Other (see Comments) NaCl 0.9% (NS) IV infusion 1,000 New Bag 02/25/2020 3:08 AM C DT 1,000 mL 125 mL/hr mL at 125 mL/hr, IV Infusion, ONCE, 1 dose, Sun02/25/20 at 0215, Routine documented in this encounter Insurance Payer Benefit Plan / Subscriber ID Effective Phone Address T ype Group Dates [facility] [id number] 2018-Pres Medica re HEALTHCARE - HEALTHCARE ent Adv HM O MANAGED DUAL COMPLETE MEDICARE HMO [employer] MEDICAID OF xxxxxxxxx 2019-Pre [phone] Medi caid [place] sent [id number] [place] [address] documented as of this encounter
--- OUTSIDE RECORDS SUMMARY | 2020-05-21 08:05 | XMS REPORT | Summary of Care ---
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 [place] [address] Giant cell aortitis Professional Office 2, Ad[facility] Lab Building Phlebotomy Lab Professional Office Building [address] , [address] [place] [address] Allergies Active Allergy Reactions Severity Noted Date Comments Meperidine Hcl Hives 08/08/2015 documented as of this encounter (statuses as of 03/19/2020) Medications Medication Sig Dispensed Refills Start Date [...] tabletIndications: Coronary mouth daily. artery disease involving [place] coronary artery of [place] heart without angina pectoris, Obesity (BMI 30-39.9), Essential hypertension, IDDM (insulin dependent diabetes mellitus), Dyslipidemia, DAHL (dyspnea on exertion), Atypical chest pain amLODIPine 5 mg Take 1 tablet by 180 tablet 2 06/04/2019 Active tabletIndications: Atypical mouth 2 (two) times chest pain daily. atorvastatin 40 mg Take 1 tablet by 90 tablet 3 06/04/2019 Active tabletIndications: Coronary mouth at bedtime. artery disease involving [place] coronary artery of [place] heart without angina pectoris, Obesity (BMI 30-39.9), Essential hypertension, IDDM (insulin dependent diabetes mellitus), Dyslipidemia, DAHL (dyspnea on exertion), Atypical chest pain clopidogrel 75 mg Take 1 tablet by 90 tablet 3 06/04/2019 Active tabletIndications: Coronary mouth daily. artery disease involving [place] coronary artery of [place] heart without angina pectoris, Obesity (BMI 30-39.9), Essential hypertension, IDDM (insulin dependent diabetes mellitus), Dyslipidemia, DAHL (dyspnea on exertion), Atypical chest pain carvedilol 25 mg Take 1 tablet by 180 tablet 3 06/04/2019 Active tabletIndications: Coronary mouth 2 (two) times artery disease involving [place] daily with meals. coronary artery of [place] heart without angina pectoris, Obesity (BMI 30-39.9), [...] tabletIndications: Coronary mouth daily. artery disease involving [place] coronary artery of [place] heart without angina pectoris, Obesity (BMI 30-39.9) BABY ASPIRIN ORAL Take 1 tablet by 0 Active mouth daily. losartan 50 mg tablet Take 50 mg by mouth 2 0 Active (two) times daily. documented as of this encounter (statuses as of 03/19/2020) Active Problems Problem Noted Date Symptomatic cholelithiasis 03/21/2019 Overview: Added automatically from request for romy tamera [id number] IDDM (insulin dependent diabetes mellitus) 10/01/2018 Chest pain 09/04/2018 Coronary artery disease involving [place] coronary nahun ry of [place] heart 09/04/2018 with angina pectoris Abnormal serum level of lipase 09/04/2018 Calculus of gallbladder without cholecystitis without obstruction 09/04/2018 Liver lesion 09/04/2018 Abnormal nuclear stress test 08/10/2018 Essential hypertension 08/08/2018 Dyslipidemia 08/08/2018 Atypical chest pain 08/07/2018 Obesity (BMI 30-39.9) 03/27/2017 documented as of this encounter (statuses as of 03/19/2020) Immunizations Name Administration Dates Next Due Influenza [...] been in contact with No / Unsure 03/19/2020 9:24 AM CDT someone who was confirmed or suspected to have Coronavirus / COVID-19? documented as of this encounter Last Filed Vital Signs Not on filedocumented in this encounter Plan of Treatment Date Type Specialty Care Team Description 03/25/2020 Appointment Radiology Radiology [address] [place] [id number] 03/25/2020 Appointment Radiology Radiology [address] [place] [address] 05/21/2020 Office Visit Cardiology Zeny Norris MD [address] [place], [place] [address] Health Maintenance Due Date Last Done [...] (MAMMOGRAM) Depression Screening 11/21/2020 11/21/2019 CREATININE (SERUM) 03/06/2021 03/06/2020, 02/24/2020, 04/19/2019, Additional history exists PNEUMOCOCCAL 0-64 YEARS COMBINED Completed 09/04/2018 SERIES documented as of this encounter Implants Implanted Type Area Bench Hand Machine Device Identifier Shelf Exp iration Model / Serial Date / Lot Stent STENT documented as of this encounter Results Not on filedocumented in this encounter Visit Diagnoses Diagnosis Giant cell aortitis Giant cell arteritis documented in this encounter Insurance Payer Benefit Plan / Subscriber ID Effective Phone Address T ype Group Dates [facility] [id number] 2018-Pres Medica HEALTHCARE - HEALTHCARE ent Adv HM O MANAGED DUAL COMPLETE MEDICARE HMO [facility] MEDICAID OF xxxxxxxxx 2019-Pre [phone] Medi caid [place] sent [id number] [place] [address] documented as of this encounter
--- OUTSIDE RECORDS SUMMARY | 2020-05-21 08:05 | XMS REPORT | Summary of Care ---
:1955 Author Organization [facility] Address [address] [place] [phone] Care Team Providers Name Role Phone Trish López Primary Care Provider Reason for Referral (Routine) Status Reason Specialty Diagnoses / Referred By Referred To Procedures Contact Contact New Request Ophthalmology Diagnoses Poorly controlled diabetes mellitus Giant cell aortitis Gabriel Rodriguez Procedures CONSULT/REFERRAL OPHTHALMOLOGY Preferred location: Gracia Jackson MD [address] [place] [phone] Reason for Visit Reason Comments Establish Care fatigue Other (STAT) Status Reason Specialty Diagnoses / Referred By Contact Refe rred To Contact Procedures Closed Neurology Diagnoses Severe headache Ibikunle, Foljannetho Gabriel Rodriguez, Procedures Discharge Follow-up: Specialty Provider GABRIEL RODRIGUEZ; 2 Days F, 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 [address] [place] [phone] Phone: Encounter Details Date Type Department Care Team Description 03/19/2020 Office Visit [facility] Gabriel Rodriguez Poorly contr olled diabetes mellitus (Primary Dx); Neurology-Jarad Jackson MD Early onset Alzheimer's dementia without behavioral disturbance; [address], [address] [place] [phone] Allergies Active Allergy Reactions Severity Noted Date Comments Meperidine Hcl Hives 08/08/2015 documented as of this encounter (statuses as of 03/24/2020) Medications Medication Sig Dispensed Refills Start Date [...] (JANUVIA) 100 mg Take 1 tablet by mouth 30 tablet 2 12/26/2018 Active tabletIndications: Chest pain, daily. unspecified type nitroglycerin 0.[address] 1 tablet under 30 tablet 3 03/12/20 19 Active sublingual tablet the tongue every 5 (five) minutes as needed for Chest pain. alum-mag hydroxide-simeth Take 80 mL by mouth 360 mL 0 04/07 Active 200-200-20 mg/5 mL every 6 (six) hours. suspensionIndications: Symptomatic cholelithiasis traMADOL 50 mg Take 1 tablet by mouth 8 tablet 0 04/21/2019 Active tabletIndications: Symptomatic every 6 (six) hours as cholelithiasis needed for Pain (scale 1-3) or Pain (scale 4-6). acetaminophen (TYLENOL) 325 mg Take 2 tablets by 30 tablet 0 0 04/21/2019 Active tabletIndications: Symptomatic mouth every 6 (six) cholelithiasis hours. isosorbide mononitrate 60 mg Take 1 tablet by mouth 90 tablet 2 06/04/2019 Active 24 hr tabletIndications: daily. Coronary artery disease involving washoe coronary artery of washoe heart without angina pectoris, Obesity (BMI 30-39.9), Essential hypertension, IDDM (insulin dependent diabetes mellitus), Dyslipidemia, DAHL (dyspnea on exertion), Atypical chest pain amLODIPine 5 mg Take 1 tablet by mouth 180 tablet 2 06/04/2019 Active tabletIndications: Atypical 2 (two) times daily. chest pain atorvastatin 40 mg Take 1 tablet by mouth 90 tablet 3 06/04/20 19 Active tabletIndications: Coronary at bedtime. artery disease involving washoe coronary artery of washoe heart without angina pectoris, Obesity (BMI 30-39.9), Essential hypertension, IDDM (insulin dependent diabetes mellitus), Dyslipidemia, DAHL (dyspnea on exertion), Atypical chest pain clopidogrel 75 mg Take 1 tablet by mouth 90 tablet 3 9 Active tabletIndications: Coronary daily. artery disease involving washoe coronary artery of washoe heart without angina pectoris, Obesity (BMI 30-39.9), Essential hypertension, IDDM (insulin dependent diabetes mellitus), Dyslipidemia, DAHL (dyspnea on exertion), Atypical chest pain carvedilol 25 mg Take 1 tablet by mouth 180 tablet 3 9 Active tabletIndications: Coronary 2 (two) times daily artery disease involving with meals. washoe coronary artery of washoe heart without angina pectoris, Obesity (BMI 30-39.9), Essential hypertension, IDDM (insulin dependent diabetes mellitus), Dyslipidemia, DAHL (dyspnea on exertion), Atypical chest pain ondansetron 4 mg Take 1 tablet by mouth 20 tablet 0 11/17/2019 Active disintegrating every 8 (eight) hours tabletIndications: Post as needed for Nausea concussion syndrome and Vomiting (N/V). meclizine 25 mg Take 1 tablet by mouth 20 tablet 0 11/17/2019 Active tabletIndications: Post every 6 (six) hours. concussion syndrome spironolactone (ALDACTONE) 25 Take 1 tablet by mouth 90 tablet 3 11/21/2019 Active mg tabletIndications: Coronary daily. artery disease involving washoe coronary artery of washoe heart without angina pectoris, Obesity (BMI 30-39.9) BABY ASPIRIN ORAL Take 1 tablet by mouth 0 Active daily. losartan 50 mg tablet Take 50 mg by mouth 2 0 Active (two) times daily. predniSONE 20 mg tablet Take three 20mg 50 tablet 0 03/23/2020 Active tablets daily x 5 days, then take two and a half 20 mg tablets x 5 days, then take two 20 mg tablets continuing thereafter. documented as of this encounter (statuses as of 03/24/2020) Active Problems Problem Noted Date Symptomatic cholelithiasis 03/21/2019 Overview: Added automatically from request for romy philip [id number] IDDM (insulin dependent diabetes mellitus) 10/01/2018 Chest pain 09/04/2018 Coronary artery disease involving washoe coronary nahun ry of washoe heart 09/04/2018 with angina pectoris Abnormal serum level of lipase 09/04/2018 Calculus of gallbladder without cholecystitis without obstruction 09/04/2018 Liver lesion 09/04/2018 Abnormal nuclear stress test 08/10/2018 Essential hypertension 08/08/2018 Dyslipidemia 08/08/2018 Atypical chest pain 08/07/2018 Obesity (BMI 30-39.9) 03/27/2017 documented as of this encounter (statuses as of 03/24/2020) Immunizations Name Administration Dates Next Due Influenza [...] Sign Reading Time Taken Comments Blood Pressure 116/79 03/19/2020 8:35 AM CDT Pulse 85 03/19/2020 8:35 AM CDT Temperature 36.2 C (97.2 F) 03/19/2020 8:35 AM CDT Respiratory Rate 18 03/19/2020 8:35 AM CDT Oxygen Saturation - - Inhaled Oxygen Concentration - - Weight 89.2 kg (196 lb 9.6 oz) 03/19/2020 8:35 AM CDT Height 167.6 cm (5' 6") 03/19/2020 8:35 AM CDT Body Mass Index 31.73 03/19/2020 8:35 AM CDT documented in this encounter Progress Notes Gabriel Rodriguez MD - 03/19/2020 8:40 AM CDT HISTORY OF PRESENT ILLNESS: Lauren Nolen is a 64 year old female. Chief complaint: Head pain. History: The patient had been seen in the emergency room in [place] in reference to head pain. The emergency room physician thought that the patient may be suffering with temporal arteritis because she did have a sedimentation rate that had been elevated at 65. She had been placed on steroids but shehas not been taking them as instructed, I think she had run out. She did say that yesterday she tooka 20 mg prednisone dosage. What is complicated about her cases that she has poor glycemic control and she does have a history of diabetes. In terms of the symptoms, actually she has been having problems for a couple of years. She has also been to numerous ERs recently as well because of her symptoms and she doesn't think that anyone is really paying attention to her. It is hard to really determine her symptoms. They seem to be episodic, and she gets fatigued when she has the head pain. At 1st I thought she was going to say that it was behind her ears. But it seems to involve the area of the head around the helix but can generalize. That means it would involve the entire head. She told our nurse that it feels that around the left ear that bugs are crawling into her brain. She has had some episodesof visual blurring as well but she has not lost vision and right now she is not having any problems with her vision. There has been no focal arm or leg weakness or loss of speech. She did also have a CT scan of the head done without contrast, and that study was unremarkable. ROS questions to the patient. Cardiac: chest pain, shortness of breath, easy fatigue, arrhythmia, swelling of legs. Respiratory: cough, with sputum production, wheezing, insomnia. Gastric: nausea, vomiting, diarrhea, poor appetite, blood in stool, difficult swallow. Urinary: pain with urination, blood with urination, incontinence, difficulty urinating. Skin: discoloration, itching, change in hair or nails, skin breakdown. Hematology/immunology: easy bruising, malignancy. Head, nose, throat: ringing of ears, loss of hearing, nosebleeds, sores in mouth, hoarseness, facial pain. Neurology: dizziness, tremor, change in speech, seizures, fainting spells, loss of memory, weakness arm or leg, numbness arm or leg. Endocrine: hot cold intolerance, excessive urination, increased thirst, increased sweating. Psychiatric: disorientation, depression, anxiety, mood disorder, loss of contact with reality, anger. Eyes: change in vision, eye pain, double vision, blurred vision, eyelid droop. Skeletal: pain in joints, muscle pain, back pain, neck pain, swelling of joints, swelling of the hands. The patient's responses to these questions about signs/symptoms follow. She did not respond positively to any of the review of systems questions except that she does have pain in her legs at times almost like cramping. Radiology: Chest 1 View Result Date: 02/25/2020 No acute cardiopulmonary process or interval abnormality. Preliminary Report Dictated by Resident: Wilbert Millan I, Mundo Denise MD., have reviewed this study and agree with the above report. Ct Head Wo Contrast Result Date: 03/06/2020 No acute intracranial abnormality. Preliminary Report Dictated by Resident: Melecio Stanton I, Tristian Gross MD., have reviewed this study and agree with the above report. PMH: has a past medical history of Acid reflux, Coronary artery disease, Diabetes, Gallbladder stone with nonacute cholecystitis, Hyperlipidemia, Hypertension, and Obesity. Current Outpatient Medications: BABY ASPIRIN ORAL, Take 1 tablet by mouth daily., Disp: , Rfl: losartan 50 mg tablet, Take 50 mg by mouth 2 (two) times daily., Disp: , Rfl: spironolactone (ALDACTONE) 25 mg tablet, Take 1 tablet by mouth daily., Disp: 90 tablet, Rfl: 3 ondansetron 4 mg disintegrating tablet, Take 1 tablet by mouth every 8 (eight) hours as needed for Nausea and Vomiting (N/V)., Disp: 20 tablet, Rfl: 0 amLODIPine 5 mg tablet, Take 1 tablet by mouth 2 (two) times daily., Disp: 180 tablet, Rfl: 2 atorvastatin 40 mg tablet, Take 1 tablet by mouth at bedtime., Disp: 90 tablet, Rfl: 3 carvedilol 25 mg tablet, Take 1 tablet by mouth 2 (two) times daily with meals., Disp: 180 tablet, Rfl: 3 clopidogrel 75 mg tablet, Take 1 tablet by mouth daily., Disp: 90 tablet, Rfl: 3 isosorbide mononitrate 60 mg 24 hr tablet, Take 1 tablet by mouth daily., Disp: 90 tablet, Rfl:2 acetaminophen (TYLENOL) 325 mg tablet, Take 2 tablets by mouth every 6 (six) hours., Disp: 30 tablet, Rfl: 0 nitroglycerin 0.4 mg sublingual tablet, Place 1 tablet under the tongue every 5 (five) minutesas needed for Chest pain., Disp: 30 tablet, Rfl: 3 sitaGLIPtin (JANUVIA) 100 mg tablet, Take 1 tablet by mouth daily., Disp: 30 tablet, Rfl: 2 insulin lispro protamine-insulin lispro 100 unit/mL (50-50) injection, inject 10 Units under the skin 2 (two) times daily before breakfast and dinner., Disp: 1 Syringe, Rfl: 0 insulin lispro, human, 100 unit/mL injection, inject 10 Units under the skin 2 (two) times daily before breakfast and dinner. (Patient taking differently: inject 10 Units under the skin 3 (three) times daily before meals.), Disp: 1 Vial, Rfl: 0 insulin glargine (TOUJEO MAX SOLOSTAR) 300 unit/mL (3 mL) InPn, inject 80 Units under the skin., Disp: , Rfl: metFORMIN 1,000 mg tablet, Take 1,000 mg by mouth 2 (two) times daily with meals., Disp: , Rfl: SERTraline 25 mg tablet, Take 50 mg by mouth daily., Disp: , Rfl: GLIPIZIDE ORAL, Take 2 mg by mouth 2 (two) times daily., Disp: , Rfl: meclizine 25 mg tablet, Take 1 tablet by mouth every 6 (six) hours., Disp: 20 tablet, Rfl: 0 alum-mag hydroxide-simeth 200-200-20 mg/5 mL suspension, Take 80 mL by mouth every 6 (six) hours., Disp: 360 mL, Rfl: 0 traMADOL 50 mg tablet, Take 1 tablet by mouth every 6 (six) hours as needed for Pain (scale 1-3) or Pain (scale 4-6)., Disp: 8 tablet, Rfl: 0 ACCU-CHEK SMARTVIEW TEST STRIP strip, USE TO TEST BLOOD GLUCOSE THREE TIMES DAILY 90, Disp: , Rfl: 0 EASY TOUCH ALCOHOL PREP PADS PadM, USE TO TEST BLOOD GLUCOSE THREE TIMES DAILY 90, Disp: , Rfl:0 lancets 30 gauge Misc, USE TO TEST BLOOD GLUCOSE THREE TIMES DAILY, Disp: , Rfl: 0 Family History Problem Relation Age of Onset Diabetes Mother Past Surgical History: Procedure Laterality Date LAP,CHOLECYSTECTOMY 04/21/2019 LAPAROSCOPIC CHOLECYSTECTOMY N/A 04/21/2019 Surgeon: Tristian Downey MD; Location: [facility] STENT PLACEMENT (X) Cardiac Social History Socioeconomic History Marital status: Spouse name: Not on file Number of children: Not on file Years of education: Not on file Highest education level: Not on file Occupational History Not on file Social Needs Financial resource strain: Not hard at all Food insecurity: Worry: Never true Inability: Never true Transportation needs: Medical: No Non-medical: No Tobacco Use Smoking status: Light Tobacco Smoker Smokeless tobacco: Never Used Substance and Sexual Activity Alcohol use: Yes Drug use: No Sexual activity: Not on file Lifestyle Physical activity: Days per week: Not on file Minutes per session: Not on file Stress: Not on file Relationships Social connections: Talks on phone: Not on file Gets together: Not on file Attends scientology service: Not on file Active member of club or organization: Not on file Attends meetings of clubs or organizations: Not on file Relationship status: Not on file Intimate partner violence: Fear of current or ex partner: Not on file Emotionally abused: Not on file Physically abused: Not on file Forced sexual activity: Not on file Other Topics Concern Not on file Social History Narrative 08/07/18 - independent ADLs Vital signs: BP 116/79 (BP Location: Left arm, Patient Position: Sitting, BP CUFF SIZE: Adult Large) | Pulse 85| Temp 36.2 C (97.2 F) (Oral) | Resp 18 | Ht 5' 6" (1.676 m) | Wt 196 lb 9.6 oz (89.2 kg) | BMI 31.73 kg/m Examination: Mental Status: well-kept and appears stated age, alert and oriented times three, cooperative during the exam, attention and concentration normal, dialysis social worker and expression intact, fund of information normal, recent and remote memory intact, affect/mood normal and relaxed. Cranial nerves (vision, eye movement): EOM intact, equal reactive pupils, accommodation reflex present, full visual gonzales. Could not get a good look at the optic disks. Cranial nerves (V,VII): LT/sharp face sense intact, Frontalis intact, NL buccinators, obiculi occuli/oralis NL. Cranial nerves (taste, smell): taste intact by history, smell intact by history. Cranial nerve (VIII): normal conversational hearing, worley's midline, MIRZA intact finger rub. Cranial nerve (X,XII): tongue bulk normal, tongue midline, palate centered. Cranial nerve (accessory): normal r/l sternomastoid bulk/tone/power , shoulder shrug r/l equal. Peripheral motor: normal MIRZA arm strength, normal MIRZA leg power, R/L arm bulk intact, leg bulk normal MIRZA, Mirza UE intact tone, LE nl tone mirza. Reflexes: toes downgoing. Upper extremities ant knee jerks were 1+. Could not get quirino jerkes. Peripheral sensation: Mirza position sense present. Light/sharp touch generall intact though vibrationdiminished in the feet. Coordination: FTN normal MIRZA, HTS MIRZA intact, finger tap MIRZA normal, MIRZA RAH symmetrical. Gait: gait normal, arm swing intact, romberg negative. HEENT: HEENT A/N, no oropharyngeal lesion present, JVD absent, thyromegaly absent, no lymphadenopathy present. Lungs: lungs clear, no wheezing, no rhonchi. Heart: CV RRR, no murmurs, carotid bruits absent. Peripheral vascular: no peripheral cyanosis, clubbing absent, no peripheral edema present, intact peripheral pulses, extremities warm to touch, absent MIRZA foot ulcers. Musculoskeletal. Some pain with percussion of the temples, but no nuchal rigidity. ASSESSMENT AND RECOMMENDATIONS: ICD-10-CM ICD-9-CM 1. Poorly controlled diabetes mellitus E11.65 250.00 2. Early onset Alzheimer's dementia without behavioral disturbance G30.0 331.0 F02.80 294.10 3. Giant cell aortitis M31.6 446.5 Impression: She did have protestant pain on palpation, but she did not have any nuchal rigidity. We willrepeat the sedimentation rate, and get a C-reactive protein. Would also like to consult ophthalmology. She has a provider outside of [facility], and if her labs come back once again elevated and suggestive of giant cell arteritis, then I will need to contact the primary provider because we would then need to increase the dosage of steroids. Creation of the note was aided by utilizing a cut/paste operation of text from a Microsoft Word template created with e-contratos. The text was dictated into the template via Dragon Naturally Speaking. documented in this encounter Plan of Treatment Date Type Specialty Care Team Description 03/25/2020 Appointment Radiology Radiology [address] [place] [id number] 03/25/2020 Appointment Radiology Radiology [address] [place] [address] 04/15/2020 Office Visit Ophthalmology Vinod Flores M D [address] [place], [place] [address] 05/21/2020 Office Visit Cardiology Zeny Norris MD [address] [place], [place] [address] Health Maintenance Due Date [...] of this encounter Implants Implanted Type Area Edge Inker Uppers Device Identifier Shelf Exp iration Model / Serial Date / Lot Stent STENT documented as of this encounter Results SEDIMENTATION RATE (03/19/2020 9:28 AM CDT) Pathologist Sig nature ESR 57 (H) 0 - 20 mm/HR [facility] Specimen Blood Performing Organization Address City/[facility]/Zipcode Phone Number [facility] CLIA: [id number], [address] [place], [place] [address] C-REACTIVE PROTEIN (03/19/2020 9:28 AM CDT) Pathologist Sig nature CRP 5.5 (H) <0.8 mg/dL [facility] Specimen Blood Performing Organization Address City/[facility]/Zipcode Phone Number [facility] CLIA: [id number], [address] [place], [place] [address] [facility] documented in this encounter Visit Diagnoses Diagnosis Poorly controlled diabetes mellitus - Pr imary Type II or unspecified type diabetes mercedes litus without mention of complication, not stated as uncontrolled Early onset Alzheimer's dementia without behavioral disturbance Giant cell aortitis Giant cell arteritis documented in this encounter Insurance Payer Benefit Plan / Subscriber ID Effective Phone Address T ype Group Dates [facility] [id number] 2018-Pres [employer] [facility] HEALTHCARE ent Adv HM O MANAGED DUAL COMPLETE MEDICARE HMO [facility] MEDICAID OF xxxxxxxxx 2019-Pre [phone] ca[address] [place] sent [phone] [place] [address] documented as of this encounter
--- OUTSIDE RECORDS SUMMARY | 2020-05-21 08:06 | XMS REPORT | Summary of Care ---
:1955 Author Organization [facility] Address [address] [place] [address] Care Team Providers Name Role Phone Trish López Primary Care Provider Reason for Visit Radiology Services (Routine) Status Reason Specialty Diagnoses / Referred By Referred To Procedures Contact Contact New Request Diagnostic Diagnoses Abnormal mammogram Abnormal mammogram Jannie López Radiology Procedures BI ULTRASOUND BREAST LIMITED RIGHT BI ULTRASOUND BREAST COMPLETE RIGHT CHG US BREAST UNI REAL TIME WITH IMAGE COMPLETE ULTRASOUND BREAST COMPLETE RIGHT Trish [address] [place] [address] Encounter Details Date Type Department Care Team Description 03/25/2020 Hospital Encounter [facility]iolog [facility] Arrived [facility] [address] [address] [place] [address] Allergies Active Allergy Reactions Severity Noted Date Comments Meperidine Hcl Hives 08/08/2015 documented as of this encounter (statuses as of 03/26/2020) Medications Medication Sig Dispensed Refills Start Date [...] hr tabletIndications: daily. Coronary artery disease involving [place] coronary artery of [place] heart without angina pectoris, Obesity (BMI 30-39.9), [...] tabletIndications: Coronary at bedtime. artery disease involving [place] coronary artery of [place] heart without angina pectoris, Obesity (BMI 30-39.9), Essential hypertension, IDDM (insulin dependent diabetes mellitus), Dyslipidemia, DAHL (dyspnea on exertion), Atypical chest pain clopidogrel 75 mg Take 1 tablet by mouth 90 tablet 3 9 Active tabletIndications: Coronary daily. artery disease involving [place] coronary artery of [place] heart without angina pectoris, Obesity (BMI 30-39.9), Essential hypertension, IDDM (insulin dependent diabetes mellitus), Dyslipidemia, DAHL (dyspnea on exertion), Atypical chest pain carvedilol 25 mg Take 1 tablet by mouth 180 tablet 3 9 Active tabletIndications: Coronary 2 (two) times daily artery disease involving with meals. [place] coronary artery of [place] heart without angina pectoris, Obesity (BMI 30-39.9), [...] mg tabletIndications: Coronary daily. artery disease involving [place] coronary artery of [place] heart without angina pectoris, Obesity (BMI 30-39.9) [...] as of this encounter (statuses as of 03/26/2020) Active Problems Problem Noted Date Symptomatic cholelithiasis 03/21/2019 Overview: Added automatically from request for romy andreay [id number] IDDM (insulin dependent diabetes mellitus) 10/01/2018 Chest pain 09/04/2018 Coronary artery disease involving [place] coronary nahun ry of [place] heart 09/04/2018 with angina pectoris Abnormal serum level of lipase 09/04/2018 Calculus of gallbladder without cholecystitis without obstruction 09/04/2018 Liver lesion 09/04/2018 Abnormal nuclear stress test 08/10/2018 Essential hypertension 08/08/2018 Dyslipidemia 08/08/2018 Atypical chest pain 08/07/2018 Obesity (BMI 30-39.9) 03/27/2017 documented as of this encounter (statuses as of 03/26/2020) Immunizations Name Administration Dates Next Due Influenza [...] been in contact with No / Unsure 03/25/2020 9:01 AM CDT someone who was confirmed or suspected to have Coronavirus / COVID-19? documented as of this encounter Last Filed Vital Signs Not on filedocumented in this encounter Plan of Treatment Date Type Specialty Care Team Description 04/15/2020 Office Visit Ophthalmology Vinod Flores M D [address] [place], [place] [address] 05/21/2020 Office Visit Cardiology Zney Norris MD [address] [place], [place] [phone] Health Maintenance Due Date [...] of this encounter Implants Implanted Type Area Product Architect Device Identifier Shelf Exp iration Model / Serial Date / Lot Stent STENT documented as of this encounter Procedures Procedure Name Priority Date/Time Associated Comments Diagnosis BI ULTRASOUND BREAST Routine 03/25/2020 10:07 AM Abnormal mamm ogram Results for this LIMITED RIGHT CDT procedure are in the results section. documented in this encounter Results BI ULTRASOUND BREAST LIMITED RIGHT (03/25/2020 10:07 AM CDT) Specimen Narrative Performed At This result has an attachment that is no t available. Examination: PACS/VR BI ULTRASOUND BREAST LIMITED RIGHT History: Patient is 64 year old and is seen for: Abnormal mmg . Comparisons: 03/25/2020 BI DIAGNOSTIC MAMMOGRAM RIGHT and 10/29/2019 BI SCREENING MAMMOGRAM BILATERAL HISTORY: Abnormal mammogram. Rule out mass in the ri ght breast. TECHNIQUE: Upper-outer as well as inner half of the ri ght breast evaluated in radial/antiradial/sagittal/coronal planes both by ashley schumacher technologist and by me. Female technologist was present in the room dur ing all imaging evaluations. FINDINGS: Lesion #1: Irregular shaped 10.3 x 5.9 mm hypoechoic s olid avascular lesion confirmed at 3:00. This is probably lymph node but should be closely monitored. Lesion #2: Hypoechoic 9.1 x 3.9 mm lesion noted at 9:0 0. Lesion is avascular mostly solid with very small cystic lesions noted adjacent to this lesion at 9:00. Lesion exhibits benign features. CONCLUSIONS: Lesion at 3:00 and 9:00 discussed above. The etiology is uncertain, therefore, monitoring the lesions recommend ed by six-month mammogram follow-up, and if necessary, ultrasound eval uation. This was discussed with the patient and images were also review ed with the patient. ACR classification: Category III. Note: Patient indicated having mammogram recently at a n outside facility, probably at [place], [place]. I have advised the patien t to arrange for images to be transferred to our facility for compariso n. Recommendation: Short interval follow-up mammogram 6 months - Right BI-RADS Category: Right 3 - Probably Benign Performing Organization Address City/State/Zipcode Phone Number PACS/VR documented in this encounter Visit Diagnoses Diagnosis Abnormal mammogram Abnormal mammogram, unspecified documented in this encounter Insurance Payer Benefit Plan / Subscriber ID Effective Phone Address T ype Group Dates [facility] [id number] 2018-[facility] - HEALTHCARE ent Adv HM O MANAGED DUAL COMPLETE MEDICARE HMO [facility] MEDICAID OF xxxxxxxxx 2019-Pre [phone] Medi caid [place] sent [id number] [place] [address] documented as of this encounter
--- OUTSIDE RECORDS SUMMARY | 2020-05-21 08:06 | XMS REPORT | Summary of Care ---
:1955 Author Organization [facility] Address [address] [place] [address] Care Team Providers Name Role Phone Trish López Primary Care Provider Reason for Referral (Routine) Status Reason Specialty Diagnoses / Referred By Referred To Procedures Contact Contact New Request Ophthalmology Diagnoses Poorly controlled diabetes mellitus Giant cell aortitis Gabriel Rodriguez Procedures CONSULT/REFERRAL OPHTHALMOLOGY Preferred location: Gracia Jackson MD [address] [place] [phone] Reason for Visit Reason Comments Establish Care fatigue Other (STAT) Status Reason Specialty Diagnoses / Referred By Contact Refe rred To Contact Procedures Closed Neurology Diagnoses Severe headache Ibikunle, Foljannetho Gabriel Rodriguez, Procedures Discharge Follow-up: Specialty Provider GABRIEL RODRIGUEZ; 2 Days F, [employer] [address] [place] [address]. [address] [place] [phone] Phone: Encounter Details Date Type Department Care Team Description 03/19/2020 Office Visit [facility] Gabriel Rodriguez Poorly contr olled diabetes mellitus (Primary Dx); Neurology-Jarad Jackson MD Early onset Alzheimer's dementia without behavioral disturbance; [address], [address] [place] [address] Allergies Active Allergy Reactions Severity Noted [...] hr tabletIndications: daily. Coronary artery disease involving [place] coronary artery of [place] heart without angina pectoris, Obesity (BMI 30-39.9), [...] tabletIndications: Coronary at bedtime. artery disease involving [place] coronary artery of [place] heart without angina pectoris, Obesity (BMI 30-39.9), Essential hypertension, IDDM (insulin dependent diabetes mellitus), Dyslipidemia, DAHL (dyspnea on exertion), Atypical chest pain clopidogrel 75 mg Take 1 tablet by mouth 90 tablet 3 9 Active tabletIndications: Coronary daily. artery disease involving [place] coronary artery of [place] heart without angina pectoris, Obesity (BMI 30-39.9), Essential hypertension, IDDM (insulin dependent diabetes mellitus), Dyslipidemia, DAHL (dyspnea on exertion), Atypical chest pain carvedilol 25 mg Take 1 tablet by mouth 180 tablet 3 9 Active tabletIndications: Coronary 2 (two) times daily artery disease involving with meals. [place] coronary artery of [place] heart without angina pectoris, Obesity (BMI 30-39.9), [...] mg tabletIndications: Coronary daily. artery disease involving [place] coronary artery of [place] heart without angina pectoris, Obesity (BMI 30-39.9) [...] Added automatically from request for romy philip [id number] IDDM (insulin dependent diabetes mellitus) 10/01/2018 Chest pain 09/04/2018 Coronary artery disease involving [place] coronary nahun ry of [place] heart 09/04/2018 with angina pectoris Abnormal serum [...] been seen in the emergency room in [place] in reference to head pain. The emergency [...] N/A 04/21/2019 Surgeon: Tristian Downey MD; Location: [facility] STENT PLACEMENT (X) Cardiac Social History Socioeconomic [...] file Gets together: Not on file Attends yazidism service: Not on file Active member of [...] during the exam, attention and concentration normal, senior receptionist and expression intact, fund of information normal, [...] aortitis M31.6 446.5 Impression: She did have mormon pain on palpation, but she did not have any nuchal rigidity. We willrepeat the sedimentation rate, and get a C-reactive protein. Would also like to consult ophthalmology. She has a provider outside of [facility], and if her labs come back once again elevated and suggestive of giant cell arteritis, then I will need to contact the primary provider because we would then need to increase the dosage of steroids. Creation of the note was aided by utilizing a cut/paste operation of text from a Microsoft Word template created with [employer]. The text was dictated into the template via Dragon Naturally Speaking. documented in this encounter Plan of Treatment Date Type Specialty Care Team Description 03/25/2020 Appointment Radiology Radiology [address] [place] [address] 03/25/2020 Appointment Radiology Radiology [address] [place] [address] 04/15/2020 Office Visit Ophthalmology Vinod Flores M D [address] [place], [place] [address] 05/21/2020 Office Visit Cardiology Zeny Norris MD [address] [place], [place] [phone] Health Maintenance Due Date [...] of this encounter Implants Implanted Type Area Lumber Straightened Device Identifier Shelf Exp iration Model / Serial Date / Lot Stent STENT documented as of this encounter Results SEDIMENTATION RATE (03/19/2020 9:28 AM CDT) Pathologist Sig nature ESR 57 (H) 0 - 20 mm/HR [facility] Specimen Blood Performing Organization Address City/[facility]/Zipcode Phone Number [facility] CLIA: [id number], [address] [place], [place] [address] C-REACTIVE PROTEIN (03/19/2020 9:28 AM CDT) Pathologist Sig nature CRP 5.5 (H) <0.8 mg/dL [facility] Specimen Blood Performing Organization Address City/[facility]/Zipcode Phone Number [facility] CLIA: [id number], [address] [place], [place] [address] 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
--- OUTSIDE RECORDS SUMMARY | 2020-05-21 08:07 | XMS REPORT | Summary of Care ---
:1955 Author Organization [facility] Address [address] [place] [address] Care Team Providers Name Role Phone Trish López Primary Care Provider Reason for Referral Radiology Services (Routine) Status Reason Specialty Diagnoses / Referred By Referred To Procedures Contact Contact Closed Diagnostic Diagnoses Abnormal mammogram Abnormal mammogram Jannie López Radiology Procedures BI DIAGNOSTIC MAMMOGRAM RIGHT CHG DIAGNOSTIC MAMMOGRAPHY COMPUTER-AIDED DETCJ UNI DIAGNOSTIC MAMMOGRAM RIGHT [address] [place] [address] Reason for Visit Radiology Services (Routine) Status Reason Specialty Diagnoses / Referred By Referred To Procedures Contact Contact Closed Diagnostic Diagnoses Abnormal mammogram Abnormal mammogram Rene Jannie Trish Radiology Procedures BI DIAGNOSTIC MAMMOGRAM RIGHT CHG DIAGNOSTIC MAMMOGRAPHY COMPUTER-AIDED DETCJ UNI DIAGNOSTIC MAMMOGRAM RIGHT [address] [place] [address] Encounter Details Date Type Department Care Team Description 03/25/2020 Hospital Encounter [facility] Radiolog [facility] Arrived [facility] [address] [address] [place] [address] Allergies Active Allergy Reactions Severity [...] hr tabletIndications: daily. Coronary artery disease involving [place] coronary artery of [place] heart without angina pectoris, Obesity (BMI 30-39.9), [...] tabletIndications: Coronary at bedtime. artery disease involving [place] coronary artery of [place] heart without angina pectoris, Obesity (BMI 30-39.9), Essential hypertension, IDDM (insulin dependent diabetes mellitus), Dyslipidemia, DAHL (dyspnea on exertion), Atypical chest pain clopidogrel 75 mg Take 1 tablet by mouth 90 tablet 3 Active tabletIndications: Coronary daily. artery disease involving [place] coronary artery of [place] heart without angina pectoris, Obesity (BMI 30-39.9), Essential hypertension, IDDM (insulin dependent diabetes mellitus), Dyslipidemia, DAHL (dyspnea on exertion), Atypical chest pain carvedilol 25 mg Take 1 tablet by mouth 180 tablet 3 Active tabletIndications: Coronary 2 (two) times daily artery disease involving with meals. [place] coronary artery of [place] heart without angina pectoris, Obesity (BMI 30-39.9), [...] mg tabletIndications: Coronary daily. artery disease involving [place] coronary artery of [place] heart without angina pectoris, Obesity (BMI 30-39.9) [...] Added automatically from request for romy philip [id number] IDDM (insulin dependent diabetes mellitus) 10/01/2018 Chest pain 09/04/2018 Coronary artery disease involving [place] coronary nahun ry of [place] heart 09/04/2018 with angina pectoris Abnormal serum [...] M D [address] [place], [place] [address] 05/21/2020 Office Visit Cardiology Zeny Norris MD [address] [place], [place] [address] Health Maintenance Due Date [...] of this encounter Implants Implanted Type Area Sharepoint Specialist Device Identifier Shelf Exp iration Model / Serial Date / Lot Stent STENT documented as of this encounter Procedures Procedure Name Priority Date/Time Associated Comments Diagnosis BI DIAGNOSTIC Routine 03/25/2020 9:48 AM Abnormal mammogram R esults for this MAMMOGRAM RIGHT CDT procedure ar e in the results section. documented in this encounter Results BI DIAGNOSTIC MAMMOGRAM RIGHT (03/25/2020 9:48 AM CDT) Specimen Narrative Performed At This result has an attachment that is no t available. Examination: PACS BI DIAGNOSTIC MAMMOGRAM RIGHT History: Patient is 64 year old and is seen for: Abnormal mmg . Computer-aided detection (CAD) utilized. Comparisons: 10/29/2019 BI SCREENING MAMMOGRAM BILATER AL Findings: The right breast has scattered areas of fibroglandular density. There is an 8 mm equal density, oval mass with obscure d margins seen in the upper outer quadrant of the right breast in the po sterior depth, 10.3 cm from the nipple on the CC view. Impression: Additional Imaging confirmed two lesions in RIGHT [address], approx. At 9 O'clock and 3 O'clock locations. Therefore, we will proceed with ultrasound study today. Recommendation: Ultrasound - Right BI-RADS Category: Right: 0 - Incomplete: Needs Additional Imaging Evalua tion Overall: 0 - Incomplete: Needs Additional Imaging Eval uation Performing Organization Address City/State/Zipcode Phone Number PACS documented in this encounter Visit Diagnoses Diagnosis Abnormal mammogram Abnormal mammogram, unspecified documented in this encounter Insurance Payer Benefit Plan / Subscriber ID Effective Phone Address T ype Group Dates [facility] [id number] 2018-[facility] - HEALTHCARE ent Adv HM O MANAGED DUAL COMPLETE MEDICARE HMO [facility] MEDICAID OF xxxxxxxxx 2019-Pre [phone] [address] Medi caid [place] sent [phone] [place] [address] documented as of this encounter
--- OUTSIDE RECORDS SUMMARY | 2020-05-21 08:07 | XMS REPORT | Summary of Care ---
:1955 Author Organization [facility] Address [address] [place] [address] Care Team Providers Name Role Phone Trish López Primary Care Provider Encounter Details Date Type Department Care Team Description 03/19/2020 Orders Only [facility] Doctor Unassigned, No [address] [facility] [place] [address] [address] [place] [id number] Allergies Active Allergy Reactions Severity Noted Date Comments Meperidine Hcl Hives 08/08/2015 documented as of this encounter (statuses as of 03/30/2020) Medications Medication Sig Dispensed Refills Start Date [...] hr tabletIndications: daily. Coronary artery disease involving [place] coronary artery of [place] heart without angina pectoris, Obesity (BMI 30-39.9), [...] tabletIndications: Coronary at bedtime. artery disease involving [place] coronary artery of [place] heart without angina pectoris, Obesity (BMI 30-39.9), Essential hypertension, IDDM (insulin dependent diabetes mellitus), Dyslipidemia, DAHL (dyspnea on exertion), Atypical chest pain clopidogrel 75 mg Take 1 tablet by mouth 90 tablet 3 9 Active tabletIndications: Coronary daily. artery disease involving [place] coronary artery of [place] heart without angina pectoris, Obesity (BMI 30-39.9), Essential hypertension, IDDM (insulin dependent diabetes mellitus), Dyslipidemia, DAHL (dyspnea on exertion), Atypical chest pain carvedilol 25 mg Take 1 tablet by mouth 180 tablet 3 9 Active tabletIndications: Coronary 2 (two) times daily artery disease involving with meals. [place] coronary artery of [place] heart without angina pectoris, Obesity (BMI 30-39.9), [...] mg tabletIndications: Coronary daily. artery disease involving [place] coronary artery of [place] heart without angina pectoris, Obesity (BMI 30-39.9) [...] as of this encounter (statuses as of 03/30/2020) Active Problems Problem Noted Date Symptomatic cholelithiasis 03/21/2019 Overview: Added automatically from request for romy tamera [id number] IDDM (insulin dependent diabetes mellitus) 10/01/2018 Chest pain 09/04/2018 Coronary artery disease involving [place] coronary nahun ry of [place] heart 09/04/2018 with angina pectoris Abnormal serum level of lipase 09/04/2018 Calculus of gallbladder without cholecystitis without obstruction 09/04/2018 Liver lesion 09/04/2018 Abnormal nuclear stress test 08/10/2018 Essential hypertension 08/08/2018 Dyslipidemia 08/08/2018 Atypical chest pain 08/07/2018 Obesity (BMI 30-39.9) 03/27/2017 documented as of this encounter (statuses as of 03/30/2020) Immunizations Name Administration Dates Next Due Influenza [...] M D [address] [place], [place] [address] 05/21/2020 Office Visit Cardiology Zeny Norris MD [address] [place] [phone] Health Maintenance Due Date Last [...] of this encounter Implants Implanted Type Area Can Runner Device Identifier Shelf Exp iration Model / Serial Date / Lot Stent STENT documented as of this encounter Procedures Procedure Name Priority Date/Time Associated Diagnosis Comme nts AGREEMENTS AUTHORIZATIONS Routine 03/19/2020 12:01 AM AND IRREVOCABLE CDT ASSIGNMENTS (FORM 2001) documented in this encounter Results Not on filedocumented in this encounter Insurance Payer Benefit Plan / Subscriber ID Effective Phone Address T ype Group Dates [facility] [id number] 2018-[facility] - HEALTHCARE ent Adv HM O MANAGED DUAL COMPLETE MEDICARE HMO [facility] MEDICAID OF xxxxxxxxx 2019-Pre [phone] [address] Medi caid [place] sent [phone] [place] [address] documented as of this encounter
--- OUTSIDE RECORDS SUMMARY | 2020-05-21 08:08 | XMS REPORT | Summary of Care ---
:1955 Author Organization [facility] [place] Address [address] [place] [id number] Care Team Providers Name Role Phone Trish López Primary Care Provider Reason for Visit Reason Comments Eye Exam (Routine) Status Reason Specialty Diagnoses / Referred By Referred To Procedures Contact Contact Authorized Ophthalmology Diagnoses Poorly controlled diabetes mellitus Giant cell aortitis Gabriel Rodriguez Procedures CONSULT/REFERRAL OPHTHALMOLOGY Preferred location: Gracia Jackson MD [address] [place] [address]. [place] [address] Encounter Details Date Type Department Care Team Description 04/15/2020 Office Visit [facility] Eye Vinod Flores, GCA (giant cell arteritis) (Primary Dx); [facility]- [facility] Nuclear senile cataract of both eyes; [address] IDDM (ins ulin dependent diabetes mellitus); [address] [id number] [place] [address] [id number] Allergies Active Allergy Reactions Severity Noted Date Comments Meperidine Hcl Hives 08/08/2015 documented as of this encounter (statuses as of 04/15/2020) Medications Medication Sig Dispensed Refills Start Date [...] hr tabletIndications: daily. Coronary artery disease involving [place] coronary artery of [place] heart without angina pectoris, Obesity (BMI 30-39.9), [...] tabletIndications: Coronary at bedtime. artery disease involving [place] coronary artery of [place] heart without angina pectoris, Obesity (BMI 30-39.9), Essential hypertension, IDDM (insulin dependent diabetes mellitus), Dyslipidemia, DAHL (dyspnea on exertion), Atypical chest pain clopidogrel 75 mg Take 1 tablet by mouth 90 tablet 3 9 Active tabletIndications: Coronary daily. artery disease involving [place] coronary artery of [place] heart without angina pectoris, Obesity (BMI 30-39.9), Essential hypertension, IDDM (insulin dependent diabetes mellitus), Dyslipidemia, DAHL (dyspnea on exertion), Atypical chest pain carvedilol 25 mg Take 1 tablet by mouth 180 tablet 3 Active tabletIndications: Coronary 2 (two) times daily artery disease involving with meals. [place] coronary artery of [place] heart without angina pectoris, Obesity (BMI 30-39.9), [...] mg tabletIndications: Coronary daily. artery disease involving [place] coronary artery of [place] heart without angina pectoris, Obesity (BMI 30-39.9) [...] take two 20 mg tablets continuing thereafter. predniSONE 20 mg 2 tabs po daily 60 tablet 3 04/15/2020 Active tabletIndications: GCA (giant cell arteritis) documented as of this encounter (statuses as of 04/15/2020) Active Problems Problem Noted Date GCA (giant cell arteritis) 04/15/2020 Overview: Added automatically from request for romy philip [id number] Symptomatic cholelithiasis 03/21/2019 Overview: Added automatically from request for romy philip [id number] IDDM (insulin dependent diabetes mellitus) 10/01/2018 Chest pain 09/04/2018 Coronary artery disease involving [place] coronary nahun ry of [place] heart 09/04/2018 with angina pectoris Abnormal serum level of lipase 09/04/2018 Calculus of gallbladder without cholecystitis without obstruction 09/04/2018 Liver lesion 09/04/2018 Abnormal nuclear stress test 08/10/2018 Essential hypertension 08/08/2018 Dyslipidemia 08/08/2018 Atypical chest pain 08/07/2018 Obesity (BMI 30-39.9) 03/27/2017 documented as of this encounter (statuses as of 04/15/2020) Immunizations Name Administration Dates Next Due Influenza [...] been in contact with No / Unsure 04/15/2020 1:02 PM CDT someone who was confirmed or suspected to have Coronavirus / COVID-19? documented as of this encounter Last Filed Vital Signs Vital Sign Reading Time Taken Comments Blood Pressure - - Pulse - - Temperature - - Respiratory Rate - - Oxygen Saturation - - Inhaled Oxygen Concentration - - Weight 88.9 kg (196 lb) 04/15/2020 1:12 PM CDT Height - - Body Mass Index 31.64 03/19/2020 8:35 AM CDT documented in this encounter Patient Instructions Patient InstructionsVinod Flores MD - 04/15/2020 1:30 PM CDT Patient Education Diabetes: Overview Diabetes is a long-term health problem. It means your body doesn't make enough insulin. Or it may mean that your body can't use the insulin it makes. Insulin is a hormone in your body. It lets blood sugar (glucose) reach the cells in your body. All of your cells need glucose for fuel. When you have diabetes, the glucose in your blood builds up because it can't get into the cells. This buildup is called high blood sugar (hyperglycemia). Your blood sugar level depends on several things. It depends on what kind of food you eat and how much of it you eat. It also depends on how much exercise you get, and how much insulin you have in yourbody. Eating too much of the wrong kinds of food or not taking diabetes medicine on time can cause high blood sugar. Infections can cause high blood sugar even if you are taking medicines correctly. These things can also cause low blood sugar: Missing meals Not eating enough food Unplanned or heavy exercise Taking too much diabetes medicine Diabetes can cause serious problems over time if you don't get treated. These problems include: Heart disease Stroke Kidney failure Blindness Nerve pain Loss of feeling in the legs and feet Tissue (gangrene) By keeping your blood sugar under control you can prevent or delay these problems. Normal blood sugar levels are 80mg/dL to 100 mg/dL before a meal. They are less than 180 mg/dLin the 1 to 2 hours after a meal. Home care Follow these guidelines when caring for yourself at home: Follow the diet your healthcare provider gives you. Take insulin or other diabetes medicine exactly as told to. Watch your blood sugar as you are told to. Keep a log of your results. This will help your provider change your medicines to keep your blood sugar under control. Try to reach your ideal weight. You may be able to cut back on or not have to take diabetes medicine if you eat the right foods and get exercise. Don't smoke. Smoking worsens the effects of diabetes on your circulation. You are much more likely to have a heart attack if you have diabetes and you smoke. Also don't use e-cigarettes or vaping products. Take good care of your feet. If you have lost feeling in your feet, you may not notice an injury or infection. Check your feet and between your toes at least once a day. Use a mirror to check the bottoms of your feet. Wear a medical alert bracelet or necklace. Or carry a card in your wallet that says you have diabetes. This will help healthcare providers give you the right care if you get very ill and can't tell them that you have diabetes. Sick-day plan If you get a cold, the flu, or a bacterial or viral infection, take these steps: Look at your diabetes sick plan and call your healthcare provider as you were told to. You may need to call your provider right away if: ? Your blood sugar is above 240 mg/dL while taking your diabetes medicine ? Your urine ketone levels are above normal or high ? You have been vomiting more than 6 hours ? You have trouble breathing or your breath has a fruity smell ? You have a high fever ? You have a fever for several days and you are not getting better ? You get light-headed and are sleepier than usual Keep taking your diabetes pills (oral medicine) even if you have been vomiting and are feeling sick. Call your provider right away. This is because you may need insulin to lower your blood sugar until you recover from your illness. Keep taking your insulin even if you have been vomiting and are feeling sick. Call your provider right away to ask if you need to change your insulin dose. This will depend on your blood sugar results. Check your blood sugar every 2 to 4 hours, or at least 4 times a day. Check your ketones often. Watch them more often if you are vomiting and having diarrhea. Don't skip meals. Try to eat small meals on a regular schedule. Do this even if you don't feel like eating. Drink water or other liquids that don't have caffeine or calories. This will keep you from getting dehydrated. If you are nauseated or vomiting, takes small sips every 5 minutes. To prevent dehydration try to drink a cup (8 ounces) of fluids every hour while you are awake. General care Always bring a source of fast-acting sugar with you in case you have symptoms of low blood sugar (below 70 mg/dL). At the first sign of low blood sugar, eat or drink 15 to 20 grams of fast-acting sugarto raise your blood sugar. Examples are: 3 to 4 glucose tablets. You can buy these at most [employer]. 4 ounces (1/2 cup) of regular (not diet) softdrinks 4 ounces (1/2 cup) of any fruit juice 5 to 6 pieces of hard candy 1 tablespoon of honey Check your blood sugar 15 minutes after treating yourself. If it's still below 70 mg/dL, take 15 to 20 more grams of fast-acting sugar. Test again in 15 minutes. If it returns to normal (70 mg/dL or above), eat a snack or meal to keep your blood sugar in a safe range. If it stays low, call your doctoror go to an emergency room. If you have had severe low blood sugar episodes, see that someone in your family is trained to give you a shot of glucagon. This will raise your blood sugar if you are unconscious and can't eat any of the above tablets or foods. Follow-up care Follow-up with your healthcare provider, or as advised. For more information about diabetes, visit the [place] [employer] website at www.diabetes.org. Or you can call 569-992-5204. When to seek medical advice Call your healthcare provider right away if you have any of these symptoms of high blood sugar that don't go away with the above treatment suggestions: Urinating often Drowsiness Thirst Headache Nausea or vomiting Belly (abdominal) pain Eyesight changes Fast breathing Also call your provider right away if you have any of these signs of low blood sugar and they don't go away with the above treatment suggestions: Fatigue Headache Shakes Excess sweating Hunger Feeling anxious or restless Eyesight changes Drowsiness Weakness Call 911 Call 911 if any of these occur: Chest pain or shortness of breath Dizziness or fainting Weakness of an arm or leg or one side of the face Trouble speaking or seeing Confusion or loss of consciousness Code71 last reviewed this educational content on 08/08/201919999365-5071 [employer]. [address] [place] [address], [place] [address]. All rights reserved. This information is not intended as a substitute for professional medical care. Always follow your healthcare professional's instructions. documented in this encounter Progress Notes Vinod Flores MD - 04/15/2020 1:30 PM CDT Cc: Eye Exam Consulted by Dr. Acuña for GCA Lauren Nolen is a 64 year old female. BLURRED VISION This affects both eyes. This is a recurrent problem. The quality of the visual disturbance is described as blurred. Visual compromise is moderate. The problem occur intermittently. Past Medical History: Diagnosis Date Acid reflux Coronary artery disease S/p PCI (August 2018) Diabetes Uncontrolled, last A1c 10.1 (October 2018) Gallbladder stone with nonacute cholecystitis Hyperlipidemia Hypertension Obesity Review of Systems Eyes: Positive for blurred vision. Reviewed ROS done by the mathematics technician during this encounter and there are additions noted above. Assessment ICD-10-CM ICD-9-CM 1. GCA (giant cell arteritis) M31.6 446.5 2. Nuclear senile cataract of both eyes H25.13 366.16 3. IDDM (insulin dependent diabetes mellitus) E11.9 250.00 Z79.4 V58.67 4. Essential hypertension I10 401.9 Mikayla Aguilar was seen today for eye exam. Diagnoses and all orders for this visit: GCA (giant cell arteritis): patient poor historian with ? Scientology pain, jaw claudication, blurry vision, diplopia: 03/19/20 ESR = 57 and CRP = 5.5 so presumptive GCA Patient has been on steroid taper since 03/19/20; last 40 mg dose yesterday - Start predniSONE 20 mg tablet; 2 tabs po daily Discussed r/b/a of Temporal artery biopsy Patient requests Bilateral temporal artery biopsy Instructed patient to get ESR and CRP geraldine Nuclear senile cataract of both eyes: UV protection IDDM (insulin dependent diabetes mellitus): No NPDR OU and Essential hypertension: control bs/bp/lipids per PCP Reiterated to patient the importance of seeing PCP especially when on systemic steroids documented in this encounter Plan of Treatment Date Type Specialty Care Team Description 04/19/2020 Office Visit Cardiology Zeny Norris MD [address] [id number] 04/28/2020 Hospital Encounter Surgery Vinod Flores MD GCA (giant cell [address] arteritis) [place], [place] [address] 04/28/2020 Surgery Surgery Vinod Flores M D TEMPORAL ARTERY BIOPSY [address] [place], [place] [address] 04/29/2020 Office Visit Ophthalmology Vinod Flores M D [address] [place], [place] [address] Name Type Priority Associated Diagnoses Order S chedule SEDIMENTATION RATE LAB Routine GCA (giant cell arteri tis) 20 Occurrences starting 04/15/2020 unti l 10/15/2021 C-REACTIVE PROTEIN LAB Routine GCA (giant cell arteri tis) 20 Occurrences starting 04/15/2020 unti l 10/15/2021 Health Maintenance Due Date Last Done Comments [...] 09/03/2018, 08/07/2018 LDL-C 08/07/2019 08/07/2018 INFLUENZA VACCINE (#1) 2020 09/04/2018 Breast Cancer Screening 10/29/2020 10/29/2019 (MAMMOGRAM) Depression Screening 11/21/2020 11/21/2019 CREATININE (SERUM) 03/06/2021 03/06/2020, 02/24/2020, 04/19/2019, Additional history exists PNEUMOCOCCAL 0-64 YEARS COMBINED Completed 09/04/2018 SERIES documented as of this encounter Implants Implanted Type Area [employer] Salesperson Device Identifier Shelf Exp iration Model / Serial Date / Lot Stent STENT documented as of this encounter Results Not on filedocumented in this encounter Visit Diagnoses Diagnosis GCA (giant cell arteritis) - Primary Giant cell arteritis Nuclear senile cataract of both eyes IDDM (insulin dependent diabetes mellitu s) Type II or unspecified type diabetes mercedes litus without mention of complication, not stated as uncontrolled Essential hypertension Unspecified essential hypertension documented in this encounter Insurance Payer Benefit Plan / Subscriber ID Effective Phone Address T ype Group Dates [facility] [id number] 2018-Pres [facility] - HEALTHCARE ent Adv HM O MANAGED DUAL COMPLETE MEDICARE HMO [facility] MEDICAID OF xxxxxxxxx 2019-Pre [phone] [place] sent [id number] [place] [address] documented as of this encounter
--- OUTSIDE RECORDS SUMMARY | 2020-05-21 08:09 | XMS REPORT | Summary of Care ---
:1955 Author Organization [facility] Address [address] [place] [address] Care Team Providers Name Role Phone Trish López Primary Care Provider Reason for Visit Reason Comments Follow-up HFU, today feels very fatigu ed, went to ER 04/17/20 for kidney stone. Other (Routine) Status Reason Specialty Diagnoses / Referred By Referred To Procedures Contact Contact New Request Cardiology Diagnoses Chest pain, unspecified type Michael Martin MD Cai, Qiangjun, MD Procedures Discharge Follow-up: Specialty Provider FREDI MOHAN; 2 Weeks [address] [address] [address] Phone: [place], [place] [phone] Fax: Encounter Details Date Type Department Care Team Description 04/19/2020 Office Visit [facility] Zeny Norris Fatigue, unsp ecified type (Primary Dx); Cardiology- Jarad Chi MD Coronary artery disease involving chickaloon coronary artery of chickaloon heart without angina pectoris; [address] [place] [address] [place] (BMI 30-39.9); Drive, [address] 106 Essential hypertension; [place], [place] Dyslipidemia; [id number] IDDM (insulin dependent diabetes mellitu s); [phone] DAHL (dyspnea on exertion); Hypotensi on due to drugs Allergies Active Allergy Reactions Severity Noted Date Comments Meperidine Hcl Hives 08/08/2015 documented as of this encounter (statuses as of 04/19/2020) Medications Medication Sig Dispensed Refills Start Date [...] hr tabletIndications: daily. Coronary artery disease involving chickaloon coronary artery of chickaloon heart without angina pectoris, Obesity (BMI 30-39.9), [...] tabletIndications: Coronary at bedtime. artery disease involving chickaloon coronary artery of chickaloon heart without angina pectoris, Obesity (BMI 30-39.9), Essential hypertension, IDDM (insulin dependent diabetes mellitus), Dyslipidemia, DAHL (dyspnea on exertion), Atypical chest pain clopidogrel 75 mg Take 1 tablet by mouth 90 tablet 3 9 Active tabletIndications: Coronary daily. artery disease involving chickaloon coronary artery of chickaloon heart without angina pectoris, Obesity (BMI 30-39.9), Essential hypertension, IDDM (insulin dependent diabetes mellitus), Dyslipidemia, DAHL (dyspnea on exertion), Atypical chest pain carvedilol 25 mg Take 1 tablet by mouth 180 tablet 3 9 Active tabletIndications: Coronary 2 (two) times daily artery disease involving with meals. chickaloon coronary artery of chickaloon heart without angina pectoris, Obesity (BMI 30-39.9), [...] mg tabletIndications: Coronary daily. artery disease involving chickaloon coronary artery of chickaloon heart without angina pectoris, Obesity (BMI 30-39.9) [...] 04/15/2020 Active tabletIndications: GCA (giant cell arteritis) cefdinir 300 mg Take 1 capsule by 14 capsule 0 04/17/2020 Active capsuleIndications: Acute mouth 2 (two) times cystitis without hematuria daily. acetaminophen-codeine Take 1 tablet by mouth 20 tablet 0 04/17 Active (TYLENOL-CODEINE #3) 300-30 mg every 6 (six) hours as tabletIndications: acute pain needed for Pain (scale 7-10). Indications: acute pain documented as of this encounter (statuses as of 04/19/2020) Active Problems Problem Noted Date GCA (giant cell arteritis) 04/15/2020 Overview: Added automatically from request for romy tamera [id number] Symptomatic cholelithiasis 03/21/2019 Overview: Added automatically from request for romy tamera [id number] IDDM (insulin dependent diabetes mellitus) 10/01/2018 Chest pain 09/04/2018 Coronary artery disease involving chickaloon coronary nahun ry of chickaloon heart 09/04/2018 with angina pectoris Abnormal serum level of lipase 09/04/2018 Calculus of gallbladder without cholecystitis without obstruction 09/04/2018 Liver lesion 09/04/2018 Abnormal nuclear stress test 08/10/2018 Essential hypertension 08/08/2018 Dyslipidemia 08/08/2018 Atypical chest pain 08/07/2018 Obesity (BMI 30-39.9) 03/27/2017 documented as of this encounter (statuses as of 04/19/2020) Immunizations Name Administration Dates Next Due Influenza [...] been in contact with No / Unsure 04/19/2020 10:16 AM CDT someone who was confirmed or suspected to have Coronavirus / COVID-19? documented as of this encounter Last Filed Vital Signs Vital Sign Reading Time Taken Comments Blood Pressure 90/69 04/19/2020 10:19 AM CDT Pulse 85 04/19/2020 10:19 AM CDT Temperature - - Respiratory Rate - - Oxygen Saturation - - Inhaled Oxygen Concentration - - Weight 90.4 kg (199 lb 3.2 oz) 04/19/2020 10:15 AM CDT Height 167.6 cm (5' 6") 04/19/2020 10:15 AM CDT Body Mass Index 32.15 04/19/2020 10:15 AM CDT documented in this encounter Patient Instructions Patient InstructionsPraZeny alves MD - 04/19/2020 10:30 AM CDTStart taking isosorbide 60 mg and Sprinolactone 25 mg at 1 PM (afternoon) Monitor ur BP at 1 PM afternoon If still running < 100/60, then we will have to start reducing ur BP meds Follow up with ur Jannie López regarding kidney infection documented in this encounter Progress Notes Zeny Norris MD - 04/19/2020 10:30 AM CDT [facility] Cardiology Consult Note Patient: Lauren Nolen Date of : 1955 Primary Care Physician: Jannie López CHIEF COMPLAINT: Chief Complaint Patient presents with Follow-up HFU, today feels very fatigued, went to ER 04/17/20 for kidney stone. History of Present Illness: Lauren Nolen is a 64 year old female presents to the clinic for follow up CAD/HTN. History was obtained talking to the patient herself. Since the last OV, she has been feeling well but started noticing that her BP is elevated. BP log reviewed. DAHL NYHA Class II noted but stable. Compliance with meds. No history of exertional chest pain. No chest pain at rest. No PND or orthopnea. No pedal edema. No exertional palpitations or palpitations at rest. No syncopal attacks. Prior cardiac history:- Patient was seen in the hospital for atypical chest pain, had abnormal stress test, transferred to [facility]. Cath showed severe mLAD stenosis had 2 JENNIFER placed. Had stress test in 2010 that was reported to be abnormal and was advised to follow up but she didn'tfollow up on regular basis. , Doesn't like seeing doctors. Past medical history of IDDM, hypertension and smoking. Previous Cardiac Studies: IMAGING - I personally reviewed, pertinent results as below: NM Stress 08/2018 IMPRESSION 1. The patient's electrocardiogram is nonischemic. 2. The patient's clinical response is asymptomatic for angina. 3. The left ventricular ejection fraction is calculated to be 54 %. 4. Small size, mild degree reversible ischemia in apical, apical septal and mid anteroseptal wall segments. Cath 08/2018 FINDINGS: LEFT CORONARYARTERY: Left Main Artery: Large, distal 20% LAD: Large, ostial 40%, proximal mild disease, mid 30% then diffuse 40-50% (FFR baseline 0.91, peak of 0.73 @140 mcg/Kg/min Adenosine IV; pull back indicative of diffuse lesion; IVUS indicative diffuse mild to moderately calcified mLAD; 3.0 [place] balloon; 3.0 x 38 mm SynergyRxDES then 3.0 x 16 mm SynergyRx just proximal to first stent; 3.5 NC; 0% residual stenosis), mid to distal tortuositywith mild LI, distalvessel wraps around the apex. D1: Medium size, mild LI D2: Small to medium size, proximal 20-30%, then mild LI D3: Small to medium size, mild LI Circumflex: Large, ostial 20%, proximal to mid mild LI, then mid 20-30% at OM3 bifurcation, then mid to distal mild LI OM1: Small OM2: Small OM3: Large, mild LI OM4: Small LPDA/PLB: Small RIGHT CORONARYARTERY: RCA: Large, dominant, proximal mild LI then 20%, mid mild LI, then kolby to distal 30% followed by distal mild LI PDA: Medium size, tortuous, mild LI PLB: Small DIAGNOSTIC IMPRESSION: Severe mLAD disease by IVUS and FFR . Successful PCI with 3.0 x 16 mm and 3.0 x 38 mm SynergyRx JENNIFER Echo 08/2018 Interpretation Summary A complete two-dimensional transthoracic echocardiogram was performed (2D, M- mode, Doppler and colorflow Doppler). There is no comparison study available. The study was technically difficult. There is mild concentric left ventricular hypertrophy. Left ventricular systolic function is normal. Diastolic dysfunction. The right ventricle is normal in size and function. There is mild mitral regurgitation. Right ventricular systolic pressure is 20-25 mmHg. The left atrium is moderately dilated. Echo 10/2018 Interpretation Summary The study was technically difficult. Left ventricular systolic function is normal. There is mild concentric left ventricular hypertrophy. The left atrium is mildly dilated. Right ventricular systolic pressure is 15-20 mmHg. NM Stress 10/2018 IMPRESSION Impression: A small in size and mild in severity mid anteroseptal reversible perfusion defect. Preserved ejection fraction and normal wall thickening. GIBSON 09/2018: normal perfusion range. Carotid USG 09/2018 No significant internal carotid artery disease PAST MEDICAL HISTORY Past Medical History: Diagnosis Date Acid reflux Coronary artery disease S/p PCI (August 2018) Diabetes Uncontrolled, last A1c 10.1 (October 2018) Gallbladder stone with nonacute cholecystitis Hyperlipidemia Hypertension Obesity No significant surgical history noted from cardiac stand point. Family History Problem Relation Age of Onset Diabetes Mother SOCIAL HISTORY Social History Socioeconomic History Marital status: Spouse [...] file Gets together: Not on file Attends quaker service: Not on file Active member of [...] Social History Narrative 08/07/18 - independent ADLs ALLERGIES Allergies Allergen Reactions Demerol [Meperidine Hcl] Hives MEDICATIONS Patient's Medications START taking these medications No medications on file CONTINUE taking these medications which have NOT CHANGED ACCU-CHEK SMARTVIEW TEST STRIP STRIP USE TO TEST BLOOD GLUCOSE THREE TIMES DAILY 90 ACETAMINOPHEN (TYLENOL) 325 MG TABLET Take 2 tablets by mouth every 6 (six) hours. ACETAMINOPHEN-CODEINE (TYLENOL-CODEINE #3) 300-30 MG TABLET Take 1 tablet by mouth every 6 (six)hours as needed for Pain (scale 7-10). Indications: acute pain ALUM-MAG HYDROXIDE-SIMETH 200-200-20 MG/5 ML SUSPENSION Take 80 mL by mouth every 6 (six) hours. AMLODIPINE 5 MG TABLET Take 1 tablet by mouth 2 (two) times daily. ATORVASTATIN 40 MG TABLET Take 1 tablet by mouth at bedtime. BABY ASPIRIN ORAL Take 1 tablet by mouth daily. CARVEDILOL 25 MG TABLET Take 1 tablet by mouth 2 (two) times daily with meals. CEFDINIR 300 MG CAPSULE Take 1 capsule by mouth 2 (two) times daily. CLOPIDOGREL 75 MG TABLET Take 1 tablet by mouth daily. EASY TOUCH ALCOHOL PREP PADS PADM USE TO TEST BLOOD GLUCOSE THREE TIMES DAILY 90 GLIPIZIDE ORAL Take 2 mg by mouth 2 (two) times daily. INSULIN GLARGINE (TOUJEO MAX SOLOSTAR) 300 UNIT/ML (3 ML) INPN inject 80 Units under the skin. INSULIN LISPRO PROTAMINE-INSULIN LISPRO 100 UNIT/ML (50-50) INJECTION inject 10 Units under the skin 2 (two) times daily before breakfast and dinner. INSULIN LISPRO, HUMAN, 100 UNIT/ML INJECTION inject 10 Units under the skin 2 (two) times daily before breakfast and dinner. ISOSORBIDE MONONITRATE 60 MG 24 HR TABLET Take 1 tablet by mouth daily. LANCETS 30 GAUGE MISC USE TO TEST BLOOD GLUCOSE THREE TIMES DAILY LOSARTAN 50 MG TABLET Take 50 mg by mouth 2 (two) times daily. MECLIZINE 25 MG TABLET Take 1 tablet by mouth every 6 (six) hours. METFORMIN 1,000 MG TABLET Take 1,000 mg by mouth 2 (two) times daily with meals. NITROGLYCERIN 0.[address] 1 tablet under the tongue every 5 (five) minutes as needed for Chest pain. ONDANSETRON 4 MG DISINTEGRATING TABLET Take 1 tablet by mouth every 8 (eight) hours as needed for Nausea and Vomiting (N/V). PREDNISONE 20 MG TABLET Take three 20mg tablets daily x 5 days, then take two and a half 20 mg tablets x 5 days, then take two 20 mg tablets continuing thereafter. PREDNISONE 20 MG TABLET 2 tabs po daily SERTRALINE 25 MG TABLET Take 50 mg by mouth daily. SITAGLIPTIN (JANUVIA) 100 MG TABLET Take 1 tablet by mouth daily. SPIRONOLACTONE (ALDACTONE) 25 MG TABLET Take 1 tablet by mouth daily. TRAMADOL 50 MG TABLET Take 1 tablet by mouth every 6 (six) hours as needed for Pain (scale 1-3) or Pain (scale 4-6). START taking Modified Medications as Prescribed No medications on file STOP taking these medications No medications on file REVIEW OF SYSTEMS: Comprehensive 10-system review was conducted and were negative except for what's noted in the HPI. The following systems were reviewed: Constitutional, cardiovascular, respiratory, gastrointestinal, genitourinary, musculoskeletal, neurologic, psychiatric, endocrinological, and hematological. PHYSICAL EXAMINATION: Vitals: 04/19/20 1015 04/19/20 1019 BP: 97/67 90/69 Pulse: 89 85 Weight: 199 lb 3.2 oz (90.4 kg) Height: 5' 6" (1.676 m) General: no apparent distress HEENT: normocephalic atraumatic Neck: supple, no lymphadenopathy, no bruits, no JVD Lungs: clear to auscultation bilaterally. No wheezes or rhonchi. No increased work of breathing. Cardio: Regular rate and rhythm, S1&S2 normal, no murmurs, rubs or gallops Abdomen: soft; non-tender; non-distended; normoactive bowel sounds. : not examined Rectal: not examined Extremities: no clubbing, cyanosis, or edema. Skin: no rashes, no visible lesions. Neuro: no gross focal deficits LABS - Reviewed pertinent labs as below: CBC BMP PT/INR WBC x10^3 (/CMM) Date Value 01/23/2005 5.9 WBC (10*3/L) Date Value 04/17/2020 19.70 (H) NA (mmol/L) Date Value 04/17/2020 135 No results found for: PT PLT x10^3 (/CMM) Date Value 01/23/2005 354 PLT (10*3/L) Date Value 04/17/2020 329 K (mmol/L) Date Value 04/17/2020 4.3 INR (no units) Date Value 02/24/2020 1.0 HGB Date Value 04/17/2020 10.0 g/dL (L) 01/23/2005 12.4 G/DL BUN (mg/dL) Date Value 04/17/2020 48 (H) HCT (%) Date Value 04/17/2020 31.4 (L) 01/23/2005 37.1 CREATININE (mg/dL) Date Value 04/17/2020 1.67 (H) LIPID PROFILE GLUCOSE (mg/dL) Date Value 04/17/2020 57 (L) CHOL (mg/dL) Date Value 08/07/2018 140 TSH LDL CHOL (mg/dL) Date Value 08/07/2018 54 TSH (mIU/L) Date Value 09/04/2018 2.28 CARDIAC ENZYMES HDL (mg/dL) Date Value 08/07/2018 27 (L) CK (U/L) Date Value 09/04/2018 98 TRIG (mg/dL) Date Value 08/07/2018 295 (H) LFTs CK-MB (ng/mL) Date Value 08/08/2015 1.28 AST(SGOT) (U/L) Date Value 03/06/2020 45 (H) TROPONIN I (ng/mL) Date Value 02/25/2020 <0.012 ALT(SGPT) (U/L) Date Value 04/19/2019 15 ALTv (U/L) Date Value 03/06/2020 19 No results found for: BNP LDL CHOL (mg/dL) Date Value 08/07/2018 54 Recent Labs 02/25/20 0315 TROPNI <0.012 There are no current results on file for these tests and/or test for 1 year. LDL CHOL (mg/dL) Date Value 08/07/2018 54 ASSESSMENT/PLAN 1. Fatigue, unspecified type 2. Coronary artery disease involving chickaloon coronary artery of chickaloon heart without angina pectorisN-TERMINAL PRO-BNP LIPID PANEL (15185)(TOTAL CHOLESTEROL, TRIGLYCERIDES, HDL) 3. Obesity (BMI 30-39.9) 4. Essential hypertension 5. Dyslipidemia 6. IDDM (insulin dependent diabetes mellitus) 7. DAHL (dyspnea on exertion) 8. Hypotension due to drugs Fatigue/Hypotension: Multifactorial. She reports having these symptoms mainly after taking her meds in AM. Plus recent UTI/culture+. Labs recent was reviewed from cardiac stand point. Recommend to take Aldactone 25 Qnoon/Imdur 60 mg Qnoon from AM. HTN: Continue Losartan 50 mg BiD, Continue Norvasc 5 mg BiD, Coreg 25 BiD. Start Aldactone 25 Qnoon/Imdur60 mg Qnoon from AM. BP log in a week. If still low, then will start reducing BP meds. Home BP log recommended. Cross check his BP machine. Appropriate ways to check home BP discussed. Goals BP < 130/80 stressed. Explained if BP > 130/80, adviced to send us the log. Lifestyle modifications stressed. CAD: S/p 08/2018: Continue DAPT. No bleeding manifestations. Currently on optimal medial management.On BB and Imdur. Chronic diastolic HF. Stable. Dyslipidemia: Continue lipitor 40 mg daily. LDL at goal. LDL CHOL (mg/dL) Date Value 08/07/2018 54 T2DM: follows PCP. Follow up in 4-6 weeks. Recommended goal BP < 130/80 consistently, LDL << 70, HbA1c < 6.5. Recommend to follow up with PCP for UTI. Orders Placed This Encounter Procedures N-TERMINAL PRO-BNP LIPID PANEL (71044)(TOTAL CHOLESTEROL, TRIGLYCERIDES, HDL) Requested Prescriptions No prescriptions requested or ordered in this encounter Patient's diease process and its evaluation and treatment were discussed. We discussed each of for cardio vascular-related problems and discussed long-term goals and expectations for the each problem.I reviewed each of the cardiac medications in detail. Reviewed the medication with patient in detail recommended to continue taking the current medications without further changes other then changes as noted above. Recommended, explained and stressed the importance of healthy eating habits and exercises and lifestyle modifications Follow up as planned is predicated on symptoms stability and/or acceptable test results. Patient is urged to call in sooner should problems arise or if there is no improvement in cardiac symptoms. ER warning signs and symptoms explained and patient verbalized understanding. My diagnostic impression and treatment plans were discussed at length with the patient. All side effects as well as drug-drug interactions and risks discussed at length. Ample opportunity was offered and encouraged to ask questions during this visit and patient appreciated the answers given by me [email or web address] statisfcation in the answers given. We reviewed the [place] [employer] recommendations for reduction of overall cardio vascular risk. The importance of monitoring the blood pressure carefully both at home on regular basis along with other physicians appointment was stressed in detail. In addition we discussed target LDL levels for optimal risk reduction. It was advised that to daily physical activity be performed with 30 minutes of sustained exercise for both cardio vascular fitness and improvement for generalized medical health and well-being. Thank you for allowing us to participate in the care of Lauren Nolen. If you have any questions or concerns please feel free to call our office at [phone]. I would be happy to be of further assistance for Lauren Nolen wellbeing. Conrado Norris MD [employer], Division of Cardiology [facility] documented in this encounter Plan of Treatment Date Type Specialty Care Team Description 04/28/2020 Hospital Encounter Surgery Vinod Flores MD GCA (giant cell [address] arteritis) [place] [id number] 04/28/2020 Anesthesia Event Surgery Robbie Crabtree MD [address] [place] [address] 04/28/2020 Surgery Surgery Vinod Flores M D TEMPORAL ARTERY [address] [place], [place] [address] 04/29/2020 Office Visit Ophthalmology Vinod Flores M D [address] [place], [place] [address] 06/10/2020 Office Visit Cardiology Zeny Norris MD [address] [address] Name Type Priority Associated Diagnoses Order S chedule N-TERMINAL PRO-BNP LAB Add-on Coronary artery diseas e 1 Occurrences starting involving chickaloon coronary until artery of chickaloon heart 04/19 without angina pectoris LIPID PANEL LAB Add-on Coronary artery disease 1 Oc currences starting (38826)(TOTAL involving chickaloon coronary 0 04/19/2020 until CHOLESTEROL, artery of chickaloon heart 04/18 TRIGLYCERIDES, HDL) without angina pector is Health Maintenance Due Date Last Done Comments HEPATITIS C (HCV) SCREEN 1955 URINE MICROALBUMIN 1966 DTaP,Tdap,and Td Vaccines (1 [...] 10/29/2020 10/29/2019 (MAMMOGRAM) Depression Screening 11/21/2020 11/21/2019 EYE EXAM 04/15/2021 04/15/2020 CREATININE (SERUM) 04/17/2021 04/17/2020, 03/06/2020, 02/24/2020, Additional history exists PNEUMOCOCCAL 0-64 YEARS COMBINED Completed 09/04/2018 SERIES documented as of this encounter Implants Implanted Type Area Manager Of Marketing Device Identifier Shelf Exp iration Model / Serial Date / Lot Stent STENT documented as of this encounter Results Not on filedocumented in this encounter Visit Diagnoses Diagnosis Fatigue, unspecified type - Primary Coronary artery disease involving chickaloon coronary artery of chickaloon heart without angina pectoris Obesity (BMI 30-39.9) Obesity, unspecified Essential hypertension Unspecified essential hypertension Dyslipidemia Other and unspecified hyperlipidemia IDDM (insulin dependent diabetes mellitu s) Type II or unspecified type diabetes mercedes litus without mention of complication, not stated as uncontrolled DAHL (dyspnea on exertion) Other dyspnea and respiratory abnormalit y Hypotension due to drugs Other iatrogenic hypotension documented in this encounter Insurance Payer Benefit Plan / Subscriber ID Effective Phone Address T ype Group [facility] [id number] 2018-Pres [facility] - HEALTHCARE ent Adv HM O MANAGED DUAL COMPLETE MEDICARE HMO [facility] MED[facility] OF xxxxxxxxx 2019-Pre [phone] [facility] sent [phone] [place] [address] documented as of this encounter
--- OUTSIDE RECORDS SUMMARY | 2020-05-21 08:09 | XMS REPORT | Summary of Care ---
:1955 Author Organization [facility] Address [address] [place] [address] Care Team Providers Name Role Phone HepzibahTrish lester Primary Care Provider Reason for Visit Reason Comments LOW BACK PAIN Auth/Cert Status Reason Specialty Diagnoses / Referred By Referred To Procedures Contact Contact Emergency Medicine Diagnoses LOW BACK PAIN [facility] Emergency Dept [address] [place] [address] Fax: Encounter Details Date Type Department Care Team Description 04/17/2020 Emergency ADC-Emergency Amanuel Henry, Acute cys titis without hematuria (Primary Dx); Department MD Chronic low back pain with sciatica, sci atica laterality unspecified, unspecified back pain laterality; [address] [place] [address] Dr arnett 301 [facility] Chronic kidney disease, [place] [address] [id number] [place], [place] [id number] Allergies Active Allergy Reactions Severity Noted Date Comments Meperidine Hcl Hives 08/08/2015 documented as of this encounter (statuses as of 04/17/2020) Medications Medication Sig Dispensed Refills Start Date [...] hr tabletIndications: daily. Coronary artery disease involving [place] coronary artery of [place] heart without angina pectoris, Obesity (BMI 30-39.9), [...] tabletIndications: Coronary at bedtime. artery disease involving [place] coronary artery of [place] heart without angina pectoris, Obesity (BMI 30-39.9), Essential hypertension, IDDM (insulin dependent diabetes mellitus), Dyslipidemia, DAHL (dyspnea on exertion), Atypical chest pain clopidogrel 75 mg Take 1 tablet by mouth 90 tablet 3 9 Active tabletIndications: Coronary daily. artery disease involving [place] coronary artery of [place] heart without angina pectoris, Obesity (BMI 30-39.9), Essential hypertension, IDDM (insulin dependent diabetes mellitus), Dyslipidemia, DAHL (dyspnea on exertion), Atypical chest pain carvedilol 25 mg Take 1 tablet by mouth 180 tablet 3 9 Active tabletIndications: Coronary 2 (two) times daily artery disease involving with meals. [place] coronary artery of [place] heart without angina pectoris, Obesity (BMI 30-39.9), [...] mg tabletIndications: Coronary daily. artery disease involving [place] coronary artery of [place] heart without angina pectoris, Obesity (BMI 30-39.9) [...] as of this encounter (statuses as of 04/17/2020) Active Problems Problem Noted Date GCA (giant cell arteritis) 04/15/2020 Overview: Added automatically from request for romy philip [id number] Symptomatic cholelithiasis 03/21/2019 Overview: Added automatically from request for romy philip [id number] IDDM (insulin dependent diabetes mellitus) 10/01/2018 Chest pain 09/04/2018 Coronary artery disease involving [place] coronary nahun ry of [place] heart 09/04/2018 with angina pectoris Abnormal serum level of lipase 09/04/2018 Calculus of gallbladder without cholecystitis without obstruction 09/04/2018 Liver lesion 09/04/2018 Abnormal nuclear stress test 08/10/2018 Essential hypertension 08/08/2018 Dyslipidemia 08/08/2018 Atypical chest pain 08/07/2018 Obesity (BMI 30-39.9) 03/27/2017 documented as of this encounter (statuses as of 04/17/2020) Immunizations Name Administration Dates Next Due Influenza [...] been in contact with No / Unsure 04/17/2020 6:39 AM CDT someone who was confirmed or suspected to have Coronavirus / COVID-19? documented as of this encounter Last Filed Vital Signs Vital Sign Reading Time Taken Comments Blood Pressure 110/67 04/17/2020 9:00 AM CDT Pulse 91 04/17/2020 9:00 AM CDT Temperature 38.1 C (100.5 F) 04/17/2020 6:43 AM CDT Respiratory Rate 19 04/17/2020 9:00 AM CDT Oxygen Saturation 96% 04/17/2020 9:00 AM CDT Inhaled Oxygen Concentration - - Weight 95.3 kg (210 lb) 04/17/2020 6:43 AM CDT Height 160 cm (5' 3") 04/17/2020 6:43 AM CDT Body Mass Index 37.2 04/17/2020 6:43 AM CDT documented in this encounter Discharge Instructions Amanuel Garber MD - 04/17/2020 DIAGNOSIS Diagnoses that have been ruled out: None Diagnoses that are still under consideration: None Final diagnoses: Chronic low back pain with sciatica, sciatica laterality unspecified, unspecified back pain laterality Acute cystitis without hematuria Chronic kidney disease, unspecified CKD stage NO LIFE-THREATENING FINDINGS ON TODAY'S EXAM. PROCEDURES IN THE ER TODAY: Orders Placed This Encounter Procedures URINALYSIS CBC WITH DIFF BASIC METABOLIC PANEL (NA, K, CL, CO2, GLUCOSE, BUN, CREATININE, CA) CBC WITH DIFFERENTIAL URINE CULTURE MEDICATIONS ADMINISTERED IN THE ER TODAY AND DISCHARGE MEDICATIONS: Orders Placed This Encounter Medications HYDROcodone-acetaminophen (NORCO 5) 5-325 mg tablet 1 tablet cefTRIAXone (ROCEPHIN) 1,000 mg in NaCl 0.9% (NS) 50 mL MINI-BAG FOLLOW-UP RECOMMENDATIONS: RECOMMEND FOLLOW-UP WITH DR LAISHA ALATORRE IN 2-5 DAYS, ESPECIALLY IF NO IMPROVEMENT IN SYMPTOMS. MAY FOLLOW-UP WITH A PROVIDER OF YOUR CHOICE, SUCH : 1. A PHYSICIAN OF YOUR CHOICE 2. [facility], . LOCATIONS IN [facility] 3. [facility], [address], [place]; [phone] OR, IF YOU WISH TO FOLLOW-UP WITHIN THE [facility], MAY TRY THESE OPTIONS (CLINIC APPOINTMENTS AVAILABLE ON [id number] BASIS): 1. SCHEDULE AN APPOINTMENT ONLINE AT WWW[facility] 2. OR CALL THE [facility]ESS CENTER AT OR 3. OR CALL YOUR [facility] PHYSICIAN'S OFFICE DIRECTLY IF YOU ARE ALREADY AN ESTABLISHED [facility] PATIENT. RETURN TO ER FOR WORSENING OF SYMPTOMS AttachmentsThe following attachments cannot be sent through Care Everywhere.Back Pain (Low): Self-Care (Swedish)documented in this encounter Plan of Treatment Date Type Specialty Care Team Description 04/19/2020 Office Visit Cardiology Zeny Norris MD [address] [place] [address] [place] [phone] 04/28/2020 Hospital Encounter Surgery Vinod Flores MD GCA (giant cell [address] arteritis) [place] [phone] 04/28/2020 Surgery Surgery Vinod Flores M D TEMPORAL ARTERY BIOPSY [address] [place], [place] [address] 04/29/2020 Office Visit Ophthalmology Vinod Flores M D [address] [place], [place] [address] Name Type Priority Associated Diagnoses Date/Ti me URINE CULTURE LAB STAT Acute cystitis without 04/07 9:45 AM CDT hematuria BLOOD CULTURE SCREEN LAB STAT Acute cystitis witho ut 04/17/2020 9:45 AM CDT hematuria Name Type Priority Associated Diagnoses Order S chedule URINE CULTURE LAB Routine Acute cystitis without ONCE for 1 Occurrences hematuria starting 2019 until 04/17/2020 BLOOD CULTURE SCREEN LAB Routine Acute cystitis witho ut ONCE for 1 Occurrences hematuria starting 2019 until 04/17/2020 Health Maintenance Due Date Last Done Comments [...] 03/06/2021 03/06/2020, 02/24/2020, 04/19/2019, Additional history exists EYE EXAM 04/15/2021 04/15/2020 PNEUMOCOCCAL 0-64 YEARS COMBINED Completed 09/04/2018 SERIES documented as of this encounter Implants Implanted Type Area It Lead Device Identifier Shelf Exp iration Model / Serial Date / Lot Stent STENT documented as of this encounter Procedures Procedure Name Priority Date/Time Associated Diagnosis Comme nts CBC WITH DIFFERENTIAL STAT 04/17/2020 8:21 Chronic low jorge k Results for this AM CDT pain with sciatica, procedur e are in sciatica laterality the resu lts unspecified, section. unspecified back pain laterality URINALYSIS STAT 04/17/2020 8:21 Chronic low back Results for this AM CDT pain with sciatica, procedur e are in sciatica laterality the resu lts unspecified, section. unspecified back pain laterality CBC WITH DIFFERENTIAL STAT 04/17/2020 8:21 Chronic low jorge k Results for this AM CDT pain with sciatica, procedur e are in sciatica laterality the resu lts unspecified, section. unspecified back pain laterality BASIC METABOLIC PANEL STAT 04/17/2020 8:21 Chronic low jorge k Results for this (NA, K, CL, CO2, AM CDT pain with sciatica, proc edure are in GLUCOSE, BUN, sciatica laterality the res ults CREATININE, CA) unspecified, section. unspecified back pain laterality documented in this encounter Results CBC WITH DIFFERENTIAL (04/17/2020 8:21 AM CDT) Pathologist Sig nature WBC 19.70 (H) 4.30 - 11.10 [facility] 10*3/L [facility] RBC 3.47 (L) 3.93 - 5.25 [facility] 10*6/L [facility] HGB 10.0 (L) 11.6 - 15.0 g/dL [facility] HCT 31.4 (L) 35.7 - 45.2 % [facility] MCV 90.5 80.6 - 95.5 fL [facility] MCH 28.8 25.9 - 32.8 pg [facility] MCHC 31.8 31.6 - 35.1 g/dL [facility] RDW-SD 41.0 39.0 - 49.9 fL [facility] RDW-CV 12.5 12.0 - 15.5 % [facility] PLT 329 166 - 358 10*3/L [facility] MPV 8.9 (L) 9.5 - 12.9 fL [facility] NRBC/100 WBC 0.0 0.0 - 10.0 /100 [facility] NRBC x10^3 <0.01 10*3/L [facility] SEG % 72 33 - 76 % [facility] BAND % 7 (H) 0 - 1 % [facility] LYMPH % 13 (L) 14 - 54 % [facility] MONO % 8 (H) 0 - 4 % [facility] ANC 15.56 (H) 1.88 - 7.09 [facility] 10*3/uL [facility] Specimen Blood - VENOUS Performing Organization Address City/State/Zipcode Phone Number [facility] CLIA: [id number], [address] [place], [place] [address] BASIC METABOLIC PANEL (NA, K, CL, CO2, GLUCOSE, BUN, CREATININE, CA) (04/17/2020 8:21 AM CDT) NA 135 135 - 145 [facility] mmol/L [facility] K 4.3 3.5 - 5.0 [facility] mmol/L [facility] CL 104 98 - 108 mmol/L [facility] CO2 TOTAL 23 23 - 31 mmol/L [facility] AGAP 8 2 - 16 [facility] BUN 48 (H) 7 - 23 mg/dL [facility] GLUCOSE 57 (L) 70 - 110 mg/dL [facility] CREATININE 1.67 (H) 0.50 - 1.04 [facility] mg/dL [facility] CALCIUM 9.2 8.6 - 10.6 [facility] mg/dL [facility] eGFR Calculation 31.0 mL/min/1.73m2 [facility] ([facility] [place]) eGFR Calculation 37.6 mL/min/1.73m2 [facility] () [facility] Specimen Blood - VENOUS Narrative Performed At Association of Glomerular Filtration Rate (GFR) [facility] and Staging of Kidney Disease* [...] tests). Performing Organization Address City/State/Zipcode Phone Number [facility] CLIA: [id number], [address] [place] [id number] [address] URINALYSIS (04/17/2020 8:21 AM CDT) Pathologist Sig nature APPEARANCE Hazy (A) Clear [facility] COLOR Yellow Yellow [facility] PH 5.0 4.8 - 8.0 [facility] SP GRAVITY 1.011 1.003 - 1.030 [facility] GLU U QUAL Normal Normal [facility] BLOOD 2+ (A) Negative [facility] KETONES Negative Negative [facility] PROTEIN Negative Negative [facility] UROBILIN Normal Normal [facility] BILIRUBIN Negative Negative [facility] NITRITE Negative Negative [facility] LEUK JOYCE 500/uL (A) Negative [facility] RBC/HPF 5 (H) 0 - 3 HPF [facility] WBC/HPF 70 (H) 0 - 5 HPF [facility] BACTERIA Many (A) Negative [facility] MUCOUS Slight (A) Negative LPF [facility] SQ EPITH 2 HPF [facility] Specimen Urine - URINE, CLEAN CATCH Performing Organization Address City/State/Zipcode Phone Number [facility] CLIA: [id number], [address] [place] [address] [address] [facility] documented in this encounter Visit Diagnoses Diagnosis Acute cystitis without hematuria - Prima ry Acute cystitis Chronic low back pain with sciatica, sci atica laterality unspecified, unspecified back pain laterality Chronic kidney disease, unspecified CKD stage documented in this encounter Administered Medications Medication Order MAR Action Action Date Dose Rate Site cefTRIAXone (ROCEPHIN) 1,000 mg Given 04/17/2020 9:50 AM CDT 1, 000 mg in NaCl 0.9% (NS) 50 mL MINI-BAG 1,000 mg, IV Piggyback, ONCE, 1 dose, 04/17/20 at 1030, 50 mL, Reason for Anti-Infective: Documented Infection, Documented Infection Site: Urine, Duration of Therapy: Other (see Comments) HYDROcodone-acetaminophen (NORCO 5) 5-325 Given 2019 8:22 AM CDT 1 tablet mg tablet 1 tablet 1 tablet, Oral, ONCE, 1 dose, 04/17/20 at 0915, NENA documented in this encounter Insurance Payer Benefit Plan / Subscriber ID Effective Phone Address T ype Group Dates [facility] [id number] 2018-[facility] - HEALTHCARE ent Adv HM O MANAGED DUAL COMPLETE MEDICARE HMO [facility] MEDICAID OF xxxxxxxxx 2019-Pre [phone] Medi caid [place] sent [phone] [place] [address] documented as of this encounter
--- OUTSIDE RECORDS SUMMARY | 2020-05-21 08:09 | XMS REPORT | Summary of Care ---
:1955 Author Organization [facility] Address [address] [place] [address] Care Team Providers Name Role Phone Trish López Primary Care Provider Reason for Visit Reason Comments Eye Exam (Routine) Status Reason Specialty Diagnoses / Referred By Referred To Procedures Contact Contact Authorized Ophthalmology Diagnoses Poorly controlled diabetes mellitus Giant cell aortitis Gabriel Rodriguez Procedures CONSULT/REFERRAL OPHTHALMOLOGY Preferred location: Gracia Jackson MD [address] [place] [address]. [place] [address] Encounter Details Date Type Department Care Team Description 04/15/2020 Office Visit [facility] Eye Vinod Flores, GCA (giant cell arteritis) (Primary Dx); Center- Gracia LINK Nuclear senile cataract of both eyes; [address] IDDM (ins ulin dependent diabetes mellitus); [id number] Essential [place] [address] [id number] Allergies Active Allergy Reactions Severity Noted Date [...] hr tabletIndications: daily. Coronary artery disease involving [place] coronary artery of [place] heart without angina pectoris, Obesity (BMI 30-39.9), [...] tabletIndications: Coronary at bedtime. artery disease involving [place] coronary artery of [place] heart without angina pectoris, Obesity (BMI 30-39.9), Essential hypertension, IDDM (insulin dependent diabetes mellitus), Dyslipidemia, DAHL (dyspnea on exertion), Atypical chest pain clopidogrel 75 mg Take 1 tablet by mouth 90 tablet 3 9 Active tabletIndications: Coronary daily. artery disease involving [place] coronary artery of [place] heart without angina pectoris, Obesity (BMI 30-39.9), Essential hypertension, IDDM (insulin dependent diabetes mellitus), Dyslipidemia, DAHL (dyspnea on exertion), Atypical chest pain carvedilol 25 mg Take 1 tablet by mouth 180 tablet 3 Active tabletIndications: Coronary 2 (two) times daily artery disease involving with meals. [place] coronary artery of [place] heart without angina pectoris, Obesity (BMI 30-39.9), [...] mg tabletIndications: Coronary daily. artery disease involving [place] coronary artery of [place] heart without angina pectoris, Obesity (BMI 30-39.9) [...] Added automatically from request for romy philip [id number] Symptomatic cholelithiasis 03/21/2019 Overview: Added automatically from request for romy philip [id number] IDDM (insulin dependent diabetes mellitus) 10/01/2018 Chest pain 09/04/2018 Coronary artery disease involving [place] coronary nahun ry of [place] heart 09/04/2018 with angina pectoris Abnormal serum [...] tablets. You can buy these at most [employer]. 4 ounces (1/2 cup) of regular (not [...] For more information about diabetes, visit the [place] Diabetes Association website at www.diabetes.org. Or you can call [phone]. When to seek medical advice Call your [...] or seeing Confusion or loss of consciousness [employer] last reviewed this educational content on 08/08/201919992016-2793 [employer], [employer]. [address] [place] [address], [place] [address]. All rights reserved. This information is not [...] blurred vision. Reviewed ROS done by the pm technician during this encounter and there are [...] cell arteritis): patient poor historian with ? Islam pain, jaw claudication, blurry vision, diplopia: 03/19/20 [...] Cardiology Zeny Norris MD [address] [phone] 04/28/2020 Hospital Encounter Surgery Vinod Flores MD GCA (giant cell [address] arteritis) [place], [place] [address] 04/28/2020 Surgery Surgery Vinod Flores M D TEMPORAL ARTERY BIOPSY [address] [place], [place] [address] 04/29/2020 Office Visit Ophthalmology Viond Flores M D [address] [place], [place] [address] Name Type Priority Associated [...] of this encounter Implants Implanted Type Area Central Office Mechanic Device Identifier Shelf Exp iration Model / [...] T ype Group Dates [facility] [id number] 2018-[facility] - HEALTHCARE ent Adv HM O MANAGED DUAL COMPLETE MEDICARE HMO [facility] MEDICAID OF xxxxxxxxx 2019-Pre [phone] Medi caid [place] sent [phone] [place] [address] documented as of this encounter
--- OUTSIDE RECORDS SUMMARY | 2020-05-21 08:10 | XMS REPORT | Summary of Care ---
:1955 Author Organization [facility] Address [address] [place] [address] Care Team Providers Name Role Phone Trish [...] Specialty Provider FREDI MOHAN; 2 Weeks [address] [address] [address] Phone: [place], [place] [phone] Fax: Encounter Details Date Type Department Care Team Description 04/19/2020 Office Visit [facility] Zeny Norris Fatigue, unsp ecified type (Primary Dx); Cardiology- Jarad Chi MD Coronary artery disease involving pala coronary artery of pala heart without angina pectoris; [address] [place] [address] [place] (BMI 30-39.9); Drive, [address]OMI 106 Essential hypertension; [place], [place] Dyslipidemia; [phone] IDDM (insulin dependent diabetes mellitu s); [phone] DAHL (dyspnea on exertion); Hypotensi on due [...] hr tabletIndications: daily. Coronary artery disease involving pala coronary artery of pala heart without angina pectoris, Obesity (BMI 30-39.9), [...] tabletIndications: Coronary at bedtime. artery disease involving pala coronary artery of pala heart without angina pectoris, Obesity (BMI 30-39.9), Essential hypertension, IDDM (insulin dependent diabetes mellitus), Dyslipidemia, DAHL (dyspnea on exertion), Atypical chest pain clopidogrel 75 mg Take 1 tablet by mouth 90 tablet 3 9 Active tabletIndications: Coronary daily. artery disease involving pala coronary artery of pala heart without angina pectoris, Obesity (BMI 30-39.9), Essential hypertension, IDDM (insulin dependent diabetes mellitus), Dyslipidemia, DAHL (dyspnea on exertion), Atypical chest pain carvedilol 25 mg Take 1 tablet by mouth 180 tablet 3 9 Active tabletIndications: Coronary 2 (two) times daily artery disease involving with meals. pala coronary artery of pala heart without angina pectoris, Obesity (BMI 30-39.9), [...] mg tabletIndications: Coronary daily. artery disease involving pala coronary artery of pala heart without angina pectoris, Obesity (BMI 30-39.9) [...] Added automatically from request for romy tamera [id number] Symptomatic cholelithiasis 03/21/2019 Overview: Added automatically from request for romy tamera [id number] IDDM (insulin dependent diabetes mellitus) 10/01/2018 Chest pain 09/04/2018 Coronary artery disease involving pala coronary nahun ry of pala heart 09/04/2018 with angina pectoris Abnormal serum [...] Norris MD - 04/19/2020 10:30 AM CDT [facility] Cardiology Consult Note Patient: Lauren Nolen [...] pain, had abnormal stress test, transferred to [facility]. Cath showed severe mLAD stenosis had 2 [...] diffuse mild to moderately calcified mLAD; 3.0 [place] [employer] balloon; 3.0 x 38 mm [employer] [...] file Gets together: Not on file Attends moravian service: Not on file Active member of [...] unspecified type 2. Coronary artery disease involving pala coronary artery of pala heart without angina pectorisN-TERMINAL PRO-BNP LIPID PANEL (11651)(TOTAL CHOLESTEROL, TRIGLYCERIDES, HDL) 3. Obesity (BMI 30-39.9) [...] This Encounter Procedures N-TERMINAL PRO-BNP LIPID PANEL (64769)(TOTAL CHOLESTEROL, TRIGLYCERIDES, HDL) Requested Prescriptions No prescriptions [...] in the answers given. We reviewed the [place] [employer] recommendations for reduction of overall [...] feel free to call our office at [phone]. I would be happy to be of further assistance for Lauren Nolen wellbeing. Conrado Norris MD Asbestos Cloth Inspector, Division of Cardiology [facility] documented in this encounter Plan of Treatment Date Type Specialty Care Team Description 04/28/2020 Hospital Encounter Surgery Vinod Flores MD GCA (giant cell [address] arteritis) [place] [phone] 04/28/2020 Anesthesia Event Surgery Robbie Crabtree MD [address] [place] [address] 04/28/2020 Surgery Surgery Vinod Flores M D TEMPORAL ARTERY [address] [place], [place] [address] 04/29/2020 Office Visit Ophthalmology Vinod Flores M D [address] [place], [place] [address] 06/10/2020 Office Visit Cardiology Zeny Norris MD [address] [phone] Name Type Priority Associated Diagnoses Order S chedule N-TERMINAL PRO-BNP LAB Add-on Coronary artery diseas e 1 Occurrences starting involving pala coronary until artery of pala heart 04/19 without angina pectoris LIPID PANEL LAB Add-on Coronary artery disease 1 Oc currences starting (66738)(TOTAL involving pala coronary 0 04/19/2020 until CHOLESTEROL, artery of pala heart 04/18 TRIGLYCERIDES, HDL) without angina pector [...] of this encounter Implants Implanted Type Area [employer] Teacher Device Identifier Shelf Exp iration Model / Serial Date / Lot Stent STENT documented as of this encounter Results Not on filedocumented in this encounter Visit Diagnoses Diagnosis Fatigue, unspecified type - Primary Coronary artery disease involving pala coronary artery of pala heart without angina pectoris Obesity (BMI 30-39.9) [...] ID Effective Phone Address T ype Group [facility] [id number] 2018-[facility] - HEALTHCARE ent Adv HM O MANAGED DUAL COMPLETE MEDICARE HMO [facility] MEDICAID OF xxxxxxxxx 2019-Pre [phone] [facility] sent [phone] [place] [address] documented as of this encounter
--- OUTSIDE RECORDS SUMMARY | 2020-05-21 08:11 | XMS REPORT | Summary of Care ---
:1955 Author Organization [facility] [employer] Address [address] [place] [address] Care Team Providers Name Role Phone Trish López Primary Care Provider Reason for Visit Reason Comments Authorization Encounter Details Date Type Department Care Team Description 04/19/[address] [facility] Cardiology, Zeny Norris MD Authorization [facility] [address] [place] [address], [address] [place] [address] [address] [place] [address] [place] [address] [phone] Allergies Active Allergy Reactions Severity Noted Date Comments Meperidine Hcl Hives 08/08/2015 documented as of this encounter (statuses as of 04/20/2020) Medications Medication Sig Dispensed Refills Start Date [...] 1 tablet under 30 tablet 3 03/12/20 Active sublingual tablet the tongue every 5 [...] hr tabletIndications: daily. Coronary artery disease involving seneca coronary artery of seneca heart without angina pectoris, Obesity (BMI 30-39.9), [...] tabletIndications: Coronary at bedtime. artery disease involving seneca coronary artery of seneca heart without angina pectoris, Obesity (BMI 30-39.9), Essential hypertension, IDDM (insulin dependent diabetes mellitus), Dyslipidemia, DAHL (dyspnea on exertion), Atypical chest pain clopidogrel 75 mg Take 1 tablet by mouth 90 tablet 3 9 Active tabletIndications: Coronary daily. artery disease involving seneca coronary artery of seneca heart without angina pectoris, Obesity (BMI 30-39.9), Essential hypertension, IDDM (insulin dependent diabetes mellitus), Dyslipidemia, DAHL (dyspnea on exertion), Atypical chest pain carvedilol 25 mg Take 1 tablet by mouth 180 tablet 3 9 Active tabletIndications: Coronary 2 (two) times daily artery disease involving with meals. seneca coronary artery of seneca heart without angina pectoris, Obesity (BMI 30-39.9), [...] mg tabletIndications: Coronary daily. artery disease involving seneca coronary artery of seneca heart without angina pectoris, Obesity (BMI 30-39.9) [...] as of this encounter (statuses as of 04/20/2020) Active Problems Problem Noted Date GCA (giant cell arteritis) 04/15/2020 Overview: Added automatically from request for romy philip [id number] Symptomatic cholelithiasis 03/21/2019 Overview: Added automatically from request for romy philip [id number] IDDM (insulin dependent diabetes mellitus) 10/01/2018 Chest pain 09/04/2018 Coronary artery disease involving seneca coronary nahun ry of seneca heart 09/04/2018 with angina pectoris Abnormal serum level of lipase 09/04/2018 Calculus of gallbladder without cholecystitis without obstruction 09/04/2018 Liver lesion 09/04/2018 Abnormal nuclear stress test 08/10/2018 Essential hypertension 08/08/2018 Dyslipidemia 08/08/2018 Atypical chest pain 08/07/2018 Obesity (BMI 30-39.9) 03/27/2017 documented as of this encounter (statuses as of 04/20/2020) Immunizations Name Administration Dates Next Due Influenza [...] cell [address] arteritis) [place], [place] [address] 04/28/2020 Anesthesia Event Surgery Robbie Crabtree MD [address] [place] [address] [place] [address] 04/28/2020 Surgery Surgery Vinod Flores M D TEMPORAL ARTERY [address] BIOPSY [place], [place] [address] 04/29/2020 Office Visit Ophthalmology Vinod Flores M D [address] [place], [place] [address] 06/10/2020 Office Visit Cardiology Zeny Norris MD [address] [address] Health Maintenance Due Date Last Done Comments HEPATITIS C (HCV) SCREEN 1955 URINE MICROALBUMIN 1966 DTaP,Tdap,and Td Vaccines (1 - 1967 Tdap) FOOT EXAM 1974 COLONOSCOPY 2006 Zoster Recombinant Vaccine 2006 (SHINGRIX) (1 of 2) LUNG CANCER SCREEN: Recommended 2011 for age 55-80 with 30 + pack year history PAP SMEAR 03/28/2014 03/28/2011, 01/23/2005 HgA1C 04/21/2019 10/22/2018, 09/03/2018, 08/07/2018 INFLUENZA VACCINE (#1) 2020 09/04/2018 Breast Cancer Screening 10/29/2020 10/29/2019 (MAMMOGRAM) Depression Screening 11/21/2020 11/21/2019 EYE EXAM 04/15/2021 04/15/2020 CREATININE (SERUM) 04/17/2021 04/17/2020, 03/06/2020, 02/24/2020, Additional history exists LDL-C 04/17/2021 04/17/2020, 08/07/2018 PNEUMOCOCCAL 0-64 YEARS COMBINED Completed 09/04/2018 SERIES documented as of this encounter Implants Implanted Type Area Television Analyzer Device Identifier Shelf Exp iration Model / Serial Date / Lot Stent STENT documented as of this encounter Results Not on filedocumented in this encounter Insurance Payer Benefit Plan / Subscriber ID Effective Phone Address T e Group Dates [facility] [id number] 2018-Pres [facility] - HEALTHCARE ent Adv HM O MANAGED DUAL COMPLETE MEDICARE HMO [facility] MEDICAID OF xxxxxxxxx 2019-Pre [phone] [address] Medi caid [place] sent [phone] [place] [address] documented as of this encounter
--- OUTSIDE RECORDS SUMMARY | 2020-05-21 08:11 | XMS REPORT | Summary of Care ---
:1955 Author Organization [facility] Address [address] [place] [address] Care Team Providers Name Role Phone Trish López Primary Care Provider Reason for Visit Reason Comments Rx Concern/Question predniSONE 20 mg tablet Encounter Details Date Type Department Care Team Description 04/23/2020 Telephone [facility] [place]- Dionte Flores MD Rx Concern/Question [address] (predniSONE 20 mg [address] [facility], [id number] tablet) [address] [place], [place] [phone] Allergies Active Allergy Reactions Severity Noted Date Comments Meperidine Hcl Hives 08/08/2015 documented as of this encounter (statuses as of 04/23/2020) Medications Medication Sig Dispensed Refills Start Date [...] 12:40 AM sitaGLIPtin (JANUVIA) Take 1 tablet 30 tablet 2 12/26/2018 Active 100 mg by mouth daily. tabletIndications: Chest pain, unspecified type nitroglycerin 0.[address] 1 tablet 30 tablet 3 03/12/2019 Active sublingual tablet under the tongue every 5 (five) minutes as needed for Chest pain. alum-mag Take 80 mL by 360 mL 0 04/21/2019 Activ e hydroxide-simeth mouth every 6 200-200-20 mg/5 mL (six) hours. suspensionIndications: Symptomatic cholelithiasis traMADOL 50 mg Take 1 tablet 8 tablet 0 04/21/2019 Active tabletIndications: by mouth every Symptomatic 6 (six) hours cholelithiasis as needed for Pain (scale 1-3) or Pain (scale 4-6). acetaminophen (TYLENOL) Take 2 tablets 30 tablet 0 04/21/2019 Active 325 mg by mouth every tabletIndications: 6 (six) hours. Symptomatic cholelithiasis isosorbide mononitrate Take 1 tablet 90 tablet 2 06/04/2019 Active 60 mg 24 hr by mouth daily. tabletIndications: Coronary artery disease involving pauma coronary artery of pauma heart without angina pectoris, Obesity (BMI 30-39.9), Essential hypertension, IDDM (insulin dependent diabetes mellitus), Dyslipidemia, DAHL (dyspnea on exertion), Atypical chest pain amLODIPine 5 mg Take 1 tablet 180 tablet 2 06/04/2019 Active tabletIndications: by mouth 2 Atypical chest pain (two) times daily. atorvastatin 40 mg Take 1 tablet 90 tablet 3 06/04/2019 Active tabletIndications: by mouth at Coronary artery disease bedtime. involving pauma coronary artery of pauma heart without angina pectoris, Obesity (BMI 30-39.9), Essential hypertension, IDDM (insulin dependent diabetes mellitus), Dyslipidemia, DAHL (dyspnea on exertion), Atypical chest pain clopidogrel 75 mg Take 1 tablet 90 tablet 3 06/04/2019 Active tabletIndications: by mouth daily. Coronary artery disease involving pauma coronary artery of pauma heart without angina pectoris, Obesity (BMI 30-39.9), Essential hypertension, IDDM (insulin dependent diabetes mellitus), Dyslipidemia, DAHL (dyspnea on exertion), Atypical chest pain carvedilol 25 mg Take 1 tablet 180 tablet 3 06/04/2019 Active tabletIndications: by mouth 2 Coronary artery disease (two) times involving pauma daily with coronary artery of meals. pauma heart without angina pectoris, Obesity (BMI 30-39.9), Essential hypertension, IDDM (insulin dependent diabetes mellitus), Dyslipidemia, DAHL (dyspnea on exertion), Atypical chest pain ondansetron 4 mg Take 1 tablet 20 tablet 0 11/17/2019 Active disintegrating by mouth every tabletIndications: Post 8 (eight) hours concussion syndrome as needed for Nausea and Vomiting (N/V). meclizine 25 mg Take 1 tablet 20 tablet 0 11/17/2019 Active tabletIndications: Post by mouth every concussion syndrome 6 (six) hours. spironolactone Take 1 tablet 90 tablet 3 11/21/2019 Active (ALDACTONE) 25 mg by mouth daily. tabletIndications: Coronary artery disease involving pauma coronary artery of pauma heart without angina pectoris, Obesity (BMI 30-39.9) BABY ASPIRIN ORAL Take 1 tablet 0 Active by mouth daily. losartan 50 mg tablet Take 50 mg by 0 Active mouth 2 (two) times daily. predniSONE 20 mg tablet Take three 20mg 50 tablet 0 03/23/2020 Active tablets daily x 5 days, then take two and a half 20 mg tablets x 5 days, then take two 20 mg tablets continuing thereafter. cefdinir 300 mg Take 1 capsule 14 capsule 0 04/17/2020 Active capsuleIndications: by mouth 2 Acute cystitis without (two) times hematuria daily. acetaminophen-codeine Take 1 tablet 20 tablet 0 04/17/2020 Active (TYLENOL-CODEINE #3) by mouth every 300-30 mg 6 (six) hours tabletIndications: acute as needed for pain Pain (scale 7-10). Indications: acute pain esomeprazole 40 mg 0 01/28/2020 Active capsule predniSONE 20 mg 2 tabs po daily 60 tablet 3 04/23/2020 Active tabletIndications: GCA (giant cell arteritis) predniSONE 20 mg 2 tabs po daily 60 tablet 3 04/15/202004/23 Discontinued tabletIndications: GCA (Reorder) (giant cell arteritis) documented as of this encounter (statuses as of 04/23/2020) Active Problems Problem Noted Date GCA (giant cell arteritis) 04/15/2020 Overview: Added automatically from request for romy philip [id number] Symptomatic cholelithiasis 03/21/2019 Overview: Added automatically from request for romy philip [id number] IDDM (insulin dependent diabetes mellitus) 10/01/2018 Chest pain 09/04/2018 Coronary artery disease involving pauma coronary nahun ry of pauma heart 09/04/2018 with angina pectoris Abnormal serum level of lipase 09/04/2018 Calculus of gallbladder without cholecystitis without obstruction 09/04/2018 Liver lesion 09/04/2018 Abnormal nuclear stress test 08/10/2018 Essential hypertension 08/08/2018 Dyslipidemia 08/08/2018 Atypical chest pain 08/07/2018 Obesity (BMI 30-39.9) 03/27/2017 documented as of this encounter (statuses as of 04/23/2020) Immunizations Name Administration Dates Next Due Influenza [...] been in contact with No / Unsure 04/21/2020 8:54 AM CDT someone who was confirmed or suspected to have Coronavirus / COVID-19? documented as of this encounter Last Filed Vital Signs Not on filedocumented in this encounter Plan of Treatment Date Type Specialty Care Team Description 04/26/2020 Laboratory Only Clinical Medical Only, Adc Test Laboratory 04/28/2020 Hospital Encounter Surgery Vinod Flores MD GCA (giant cell [address] arteritis) [id number] [place] [id number] 04/28/2020 Anesthesia Event Surgery Robbie Crabtree MD [address] [place] [phone] 04/28/2020 Surgery Surgery Vinod Flores M D TEMPORAL ARTERY [address] [place]OP[place] [id number] [place] [address] [phone] 04/29/2020 Office Visit Ophthalmology Vinod Flores M D [id number] [place] [address] 06/10/2020 Office Visit Cardiology Zeny Norris MD [address] [address] Health Maintenance Due Date Last [...] of this encounter Implants Implanted Type Area Surgical Nurse Practitioner Device Identifier Shelf Exp iration Model / Serial Date / Lot Stent STENT documented as of this encounter Results Not on filedocumented in this encounter Visit Diagnoses Diagnosis GCA (giant cell arteritis) Giant cell arteritis documented in this encounter Insurance Payer Benefit Plan / Subscriber ID Effective Phone Address T ype Group Dates [facility] [id number] 2018-Pres [facility] - HEALTHCARE ent Adv HM O MANAGED DUAL COMPLETE MEDICARE HMO [id number] MEDICAID OF xxxxxxxxx 2019-Pre [phone] [address] Medi caid [place] sent [phone] [place] [address] documented as of this encounter
--- OUTSIDE RECORDS SUMMARY | 2020-05-21 08:12 | XMS REPORT | Summary of Care ---
:1955 Author Organization [facility] Address [address] [place] [address] Care Team Providers Name Role Phone Trish López Primary Care Provider Reason for Visit Reason Comments Surgical Followup Encounter Details Date Type Department Care Team Description 04/26/2020 Telephone [facility] Eye Vinod Flores M D [facility] [id number] [facility] [place] [address] [place], [place] [phone] Allergies Active Allergy Reactions Severity Noted Date Comments Meperidine Hcl Hives 08/08/2015 documented as of this encounter (statuses as of 04/26/2020) Medications Medication Sig Dispensed Refills Start Date End Date Status GLIPIZIDE ORAL Take 2 mg by mouth 0 Suspended 2 (two) times daily. insulin glargine inject 80 Units 0 Suspended (TOUJEO MAX under the skin. SOLOSTAR) 300 unit/mL (3 mL) InPn SERTraline 25 mg Take 50 mg by 0 Suspended tablet mouth daily. metFORMIN 1,000 mg Take 1,000 mg by 0 Suspended tablet mouth 2 (two) times daily with meals. lancets 30 gauge USE TO TEST BLOOD 0 09/06/2018 Suspended Misc GLUCOSE THREE TIMES DAILY ACCU-CHEK SMARTVIEW USE TO TEST BLOOD 0 09/06/2018 Suspended TEST STRIP strip GLUCOSE THREE TIMES DAILY 90 EASY TOUCH ALCOHOL USE TO TEST BLOOD 0 09/06/2018 Suspended PREP PADS PadM GLUCOSE THREE TIMES DAILY 90 insulin lispro inject 10 Units 1 Syringe 0 12/04/2018 Suspended protamine-insulin under the skin 2 lispro 100 unit/mL (two) times daily (50-50) before breakfast injectionIndication and dinner. s: Acute cystitis with hematuria Additional information insulin lispro, human, 100 inject 10 Units 1 Vial 0 019 Suspended unit/mL injectionIndications: under the skin 2 Hyperglycemia (two) times daily before breakfast and dinner. Additional information Patient taking differently: 10 Units Subcutaneous TIDAC, Reported on 02/25/2020 12:40 AM sitaGLIPtin (JANUVIA) 100 mg Take 1 tablet by 30 tablet 2 12/07 Suspended tabletIndications: Chest pain, mouth daily. unspecified type Additional information nitroglycerin 0.[address] 1 tablet under 30 tablet 3 03/12/20 19 Suspended sublingual tablet the tongue every 5 (five) minutes as needed for Chest pain. Additional information alum-mag hydroxide-simeth Take 80 mL by 360 mL 0 04/21/2019 Suspended 200-200-20 mg/5 mL mouth every 6 suspensionIndications: Symptomatic (six) hours. cholelithiasis Additional information traMADOL 50 mg Take 1 tablet by 8 tablet 0 04/21/2019 Suspended tabletIndications: Symptomatic mouth every 6 (six) cholelithiasis hours as needed for Pain (scale 1-3) or Pain (scale 4-6). Additional information acetaminophen (TYLENOL) 325 mg Take 2 tablets by 30 tablet 0 0 04/21/2019 Suspended tabletIndications: Symptomatic mouth every 6 (six) cholelithiasis hours. Additional information isosorbide mononitrate 60 mg 24 Take 1 tablet by 90 tablet 2 0 06/04/2019 Suspended hr tabletIndications: Coronary mouth daily. artery disease involving samish coronary artery of samish heart without angina pectoris, Obesity (BMI 30-39.9), Essential hypertension, IDDM (insulin dependent diabetes mellitus), Dyslipidemia, DAHL (dyspnea on exertion), Atypical chest pain Additional information amLODIPine 5 mg Take 1 tablet by 180 tablet 2 06/04/2019 Suspended tabletIndications: Atypical mouth 2 (two) chest pain times daily. Additional information atorvastatin 40 mg Take 1 tablet by 90 tablet 3 06/04/2019 Suspended tabletIndications: Coronary mouth at bedtime. artery disease involving samish coronary artery of samish heart without angina pectoris, Obesity (BMI 30-39.9), Essential hypertension, IDDM (insulin dependent diabetes mellitus), Dyslipidemia, DAHL (dyspnea on exertion), Atypical chest pain Additional information clopidogrel 75 mg Take 1 tablet by 90 tablet 3 06/04/2019 Suspended tabletIndications: Coronary mouth daily. artery disease involving samish coronary artery of samish heart without angina pectoris, Obesity (BMI 30-39.9), Essential hypertension, IDDM (insulin dependent diabetes mellitus), Dyslipidemia, DAHL (dyspnea on exertion), Atypical chest pain Additional information carvedilol 25 mg Take 1 tablet by 180 tablet 3 06/04/2019 Suspended tabletIndications: Coronary mouth 2 (two) artery disease involving samish times daily with coronary artery of samish heart meals. without angina pectoris, Obesity (BMI 30-39.9), Essential hypertension, IDDM (insulin dependent diabetes mellitus), Dyslipidemia, DAHL (dyspnea on exertion), Atypical chest pain Additional information ondansetron 4 mg Take 1 tablet by 20 tablet 0 11/17/2019 Suspended disintegrating mouth every 8 tabletIndications: Post (eight) hours as concussion syndrome needed for Nausea and Vomiting (N/V). Additional information meclizine 25 mg Take 1 tablet by 20 tablet 0 11/17/2019 Suspended tabletIndications: Post mouth every 6 (six) concussion syndrome hours. Additional information spironolactone (ALDACTONE) 25 Take 1 tablet by 90 tablet 3 Suspended mg tabletIndications: Coronary mouth daily. artery disease involving samish coronary artery of samish heart without angina pectoris, Obesity (BMI 30-39.9) Additional information BABY ASPIRIN ORAL Take 1 tablet by mouth 0 Suspended daily. losartan 50 mg tablet Take 50 mg by mouth 2 0 Suspended (two) times daily. predniSONE 20 mg tablet Take three 20mg tablets 50 tablet 0 Suspended daily x 5 days, then take two and a half 20 mg tablets x 5 days, then take two 20 mg tablets continuing thereafter. Additional information cefdinir 300 mg Take 1 capsule by 14 capsule 0 04/17/2020 Suspended capsuleIndications: Acute mouth 2 (two) cystitis without hematuria times daily. Additional information acetaminophen-codeine Take 1 tablet by 20 tablet 0 04/17/2020 Suspended (TYLENOL-CODEINE #3) 300-30 mg mouth every 6 (six) tabletIndications: acute pain hours as needed for Pain (scale 7-10). Indications: acute pain Additional information esomeprazole 40 mg capsule 0 01/28/2020 Suspended predniSONE 20 mg 2 tabs po daily 60 tablet 3 04/23/2020 Suspended tabletIndications: GCA (giant cell arteritis) Additional information documented as of this encounter (statuses as of 04/26/2020) Active Problems Problem Noted Date Pyelonephritis 04/25/2020 GCA (giant cell arteritis) 04/15/2020 Overview: Added automatically from request for romy philip [id number] Symptomatic cholelithiasis 03/21/2019 Overview: Added automatically from request for romy philip [id number] IDDM (insulin dependent diabetes mellitus) 10/01/2018 Chest pain 09/04/2018 Coronary artery disease involving samish coronary nahun ry of samish heart 09/04/2018 with angina pectoris Abnormal serum level of lipase 09/04/2018 Calculus of gallbladder without cholecystitis without obstruction 09/04/2018 Liver lesion 09/04/2018 Abnormal nuclear stress test 08/10/2018 Essential hypertension 08/08/2018 Dyslipidemia 08/08/2018 Atypical chest pain 08/07/2018 Obesity (BMI 30-39.9) 03/27/2017 documented as of this encounter (statuses as of 04/26/2020) Immunizations Name Administration Dates Next Due Influenza Virus Vaccine Quad .5 mL IM 6+ MO 09/04/2018 Pneumococcal Polysaccharide, PPSV23 (PNEUMOVAX) 09/04/2018 documented as of this encounter Social History Tobacco Use Types Packs/Day Years Used Date Former Smoker Smokeless Tobacco: Never Used Comments: quit 2 years ago Alcohol Use Drinks/Week oz/Week Comments Yes Education Answer Date Recorded What is the highest level of school you have completed or 11 th grade 04/25/2020 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 documented as of this encounter Last Filed Vital Signs Not on filedocumented in this encounter Plan of Treatment Date Type Specialty Care Team Description 04/26/2020 Laboratory Only Clinical Medical Only, Adc Test Laboratory 04/29/2020 Office Visit Ophthalmology Vinod Flores M D [address] [address] 05/26/2020 Hospital Encounter Surgery Vinod Flores MD GCA (giant cell [address] arteritis) [id number] [place] [id number] 05/26/2020 Anesthesia Event Surgery Robbie Crabtree MD [address] [place] [phone] 05/26/2020 Surgery Surgery Vinod Flores M D TEMPORAL ARTERY [address] BI[address] [id number] [place] [address] 06/10/2020 Office Visit Cardiology Zeny Norris MD [address] [place] [address] [place] [phone] Health Maintenance Due Date Last Done Comments HEPATITIS C (HCV) SCREEN 1955 URINE MICROALBUMIN 1966 DTaP,Tdap,and Td Vaccines (1 - 1967 Tdap) FOOT EXAM 1974 COLONOSCOPY 2006 Zoster Recombinant Vaccine 2006 (SHINGRIX) (1 of 2) LUNG CANCER SCREEN: Recommended 2011 for age 55-80 with 30 + pack year history PAP SMEAR 03/28/2014 03/28/2011, 01/23/2005 INFLUENZA VACCINE (#1) 2020 09/04/2018 HgA1C 10/26/2020 04/25/2020, 10/22/2018, 09/03/2018, Additional history exists Breast Cancer Screening 10/29/2020 10/29/2019 (MAMMOGRAM) Depression Screening 11/21/2020 11/21/2019 EYE EXAM 04/15/2021 04/15/2020 LDL-C 04/17/2021 04/17/2020, 08/07/2018 CREATININE (SERUM) 04/25/2021 04/25/2020, 04/17/2020, 03/06/2020, Additional history exists PNEUMOCOCCAL 0-64 YEARS COMBINED Completed 09/04/2018 SERIES documented as of this encounter Implants Implanted Type Area Door Repairer Bus Device Identifier Shelf Exp iration Model / Serial Date / Lot Stent STENT documented as of this encounter Results Not on filedocumented in this encounter Insurance Payer Benefit Plan / Subscriber ID Effective Phone Address T ype Group Dates [place] [id number] 2018-Pres [facility] - HEALTHCARE ent Adv HM O MANAGED DUAL COMPLETE MEDICARE HMO [facility] MEDICAID OF xxxxxxxxx 2019-Pre [phone] [address] Medi caid [place] sent [phone] [place] [address] documented as of this encounter
--- OUTSIDE RECORDS SUMMARY | 2020-05-21 08:12 | XMS REPORT | Summary of Care ---
:1955 Author Organization [facility] Address [address] [place] [id number] Care Team Providers Name Role Phone Trish López Primary Care Provider Reason for Visit Reason Comments Surgical Followup Encounter Details Date Type Department Care Team Description 04/26/2020 Telephone [facility] [place]- Dionte Flores MD Surgical Followup [id number] [address] [place] [address] [address] [place], [place] [phone] Allergies Active Allergy Reactions Severity Noted Date Comments Meperidine Hcl Hives 08/08/2015 documented as of this encounter (statuses as of 04/27/2020) Medications Medication Sig Dispensed Refills Start Date [...] tabletIndications: Coronary mouth daily. artery disease involving [place] coronary artery of [place] heart without angina pectoris, Obesity (BMI 30-39.9), [...] Coronary mouth at bedtime. artery disease involving [place] coronary artery of [place] heart without angina pectoris, Obesity (BMI 30-39.9), Essential hypertension, IDDM (insulin dependent diabetes mellitus), Dyslipidemia, DAHL (dyspnea on exertion), Atypical chest pain Additional information clopidogrel 75 mg Take 1 tablet by 90 tablet 3 06/04/2019 Suspended tabletIndications: Coronary mouth daily. artery disease involving [place] coronary artery of [place] heart without angina pectoris, Obesity (BMI 30-39.9), Essential hypertension, IDDM (insulin dependent diabetes mellitus), Dyslipidemia, DAHL (dyspnea on exertion), Atypical chest pain Additional information carvedilol 25 mg Take 1 tablet by 180 tablet 3 06/04/2019 Suspended tabletIndications: Coronary mouth 2 (two) artery disease involving [place] times daily with coronary artery of [place] heart meals. without angina pectoris, Obesity (BMI [...] tabletIndications: Coronary mouth daily. 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 Abnormal serum level of lipase 09/04/2018 Calculus of gallbladder without cholecystitis without obstruction 09/04/2018 Liver lesion 09/04/2018 Abnormal nuclear stress test 08/10/2018 Essential hypertension 08/08/2018 Dyslipidemia 08/08/2018 Atypical chest pain 08/07/2018 Obesity (BMI 30-39.9) 03/27/2017 documented as of this encounter (statuses as of 04/27/2020) Immunizations Name Administration Dates Next Due Influenza [...] Treatment Date Type Specialty Care Team Description 05/26/2020 Hospital Encounter Surgery Vinod Flores MD GCA (giant cell [address] arteritis) [place], [place] [address] 05/26/2020 Anesthesia Event Surgery Robbie Crabtree MD [address] [place] [phone] 05/26/2020 Surgery Surgery Vinod Flores M D TEMPORAL ARTERY BIOPSY [address] [place], [place] [address] 06/10/2020 Office Visit Cardiology Zeny Norris MD [address] [phone] Health Maintenance Due Date Last [...] 04/15/2020 LDL-C 04/17/2021 04/17/2020, 08/07/2018 CREATININE (SERUM) 04/26/2021 04/26/2020, 04/25/2020, 04/17/2020, Additional history exists PNEUMOCOCCAL 0-64 YEARS COMBINED Completed 09/04/2018 SERIES documented as of this encounter Implants Implanted Type Area Manager Clinic Device Identifier Shelf Exp iration Model / Serial Date / Lot Stent STENT documented as of this encounter Results Not on filedocumented in this encounter Insurance Payer Benefit Plan / Subscriber ID Effective Phone Address T ype Group Dates [facility] [id number] 2018-Pres [facility] - HEALTHCARE ent Adv HM O MANAGED DUAL COMPLETE MEDICARE HMO [facility] MEDICAID OF xxxxxxxxx 2019-Pre [phone] [place] caid [place] sent [phone] [place] [address] documented as of this encounter
--- OUTSIDE RECORDS SUMMARY | 2020-05-21 08:14 | XMS REPORT | Summary of Care ---
:1955 Author Organization [facility] - [facility] Address [address] [place] [id number] Care Team Providers Name Role Phone Trish López Primary Care Provider Reason for Referral Radiology Services (Routine) Status Reason Specialty Diagnoses / Referred By Referred To Procedures Contact Contact New Request Diagnostic Diagnoses Acute renal failure, unspecified acute renal [facility] US RETROPERITONEAL Cassie Ray MD [address] [place] [address] MRI/CAT Scan (STAT) Status Reason Specialty Diagnoses / Referred By Referred To Procedures Contact Contact New Request Diagnostic Diagnoses Periumbilical abdominal pain Adrian Romero, Radiology Procedures CT ABDOMEN PELVIS W CONTRAST [address] [place] [address] [place] [address] Reason for Visit Reason Comments Abdominal Pain Auth/Cert Status Reason Specialty Diagnoses / Referred By Referred To Procedures Contact Contact Emergency Medicine [facility] [address] [place] [address] Fax: Encounter Details Date Type Department Care Team Description 04/25/2020 - Hospital Encounter ADC Medicine Michelle Romero MD [address] [place] [address] [id number] Pyelonephritis 04/27/2020 Surgery Unit Michael Martin MD [address] [place] [phone] [place] [address] [place], [place] [id number] Allergies Active Allergy Reactions Severity Noted Date [...] on 02/25/2020 12:40 AM sitaGLIPtin (JANUVIA) 100 Take 1 tablet by 30 tablet 2 019 Active mg tabletIndications: mouth daily. Chest pain, unspecified type nitroglycerin 0.[address] 1 tablet 30 tablet 3 03/12/2019 Active sublingual tablet under the tongue every 5 (five) minutes as needed for Chest pain. alum-mag hydroxide-simeth Take 80 mL by 360 mL 0 04/21/2019 Active 200-200-20 mg/5 mL mouth every 6 suspensionIndications: (six) hours. Symptomatic cholelithiasis traMADOL 50 mg Take 1 tablet by 8 tablet 0 04/21/2019 Active tabletIndications: mouth every 6 Symptomatic (six) hours as cholelithiasis needed for Pain (scale 1-3) or Pain (scale 4-6). acetaminophen (TYLENOL) Take 2 tablets by 30 tablet 0 04/21/20 19 Active 325 mg tabletIndications: mouth every 6 Symptomatic (six) hours. cholelithiasis amLODIPine 5 mg Take 1 tablet by 180 tablet 2 06/04/2019 Active tabletIndications: mouth 2 (two) Atypical chest pain times daily. atorvastatin 40 mg Take 1 tablet by 90 tablet 3 06/04/2019 Active tabletIndications: mouth at bedtime. Coronary artery disease involving [place] coronary artery of [place] heart without angina pectoris, Obesity (BMI 30-39.9), Essential hypertension, IDDM (insulin dependent diabetes mellitus), Dyslipidemia, DAHL (dyspnea on exertion), Atypical chest pain clopidogrel 75 mg Take 1 tablet by 90 tablet 3 06/04/2019 Active tabletIndications: mouth daily. Coronary artery disease involving [place] coronary artery of [place] heart without angina pectoris, Obesity (BMI 30-39.9), Essential hypertension, IDDM (insulin dependent diabetes mellitus), Dyslipidemia, DAHL (dyspnea on exertion), Atypical chest pain carvedilol 25 mg Take 1 tablet by 180 tablet 3 06/04/2019 Active tabletIndications: mouth 2 (two) Coronary artery disease times daily with involving [place] coronary meals. artery of [place] heart without angina pectoris, Obesity (BMI 30-39.9), [...] mouth daily. tabletIndications: Coronary artery disease involving [place] coronary artery of [place] heart without angina pectoris, Obesity (BMI 30-39.9) BABY ASPIRIN ORAL Take 1 tablet by 0 Active mouth daily. acetaminophen-codeine Take 1 tablet by 20 tablet 0 04/17/2020 Active (TYLENOL-CODEINE #3) mouth every 6 300-30 mg (six) hours as tabletIndications: acute needed for Pain pain (scale 7-10). Indications: acute pain esomeprazole 40 mg 0 01/28/2020 Active capsule predniSONE 20 mg 2 tabs po daily 60 tablet 3 04/23/2020 Active tabletIndications: GCA (giant cell arteritis) lactobacillus acidophilus Take 1 tablet by 60 tablet 0 020 Active 25 million cell -100 mg mouth 2 (two) captabIndications: Acute times daily. renal failure, unspecified acute renal failure type ciprofloxacin HCl 250 mg Take 1 tablet by 20 tablet 0 04/27/20 20 05/07/ Active tabletIndications: Acute mouth 2 (two) 2 020 renal failure, times daily for unspecified acute renal 10 days. failure type isosorbide mononitrate 60 Take 1 tablet by 90 tablet 2 019 04/27/ Discontinued mg 24 hr mouth daily. 2020 tabletIndications: Coronary artery disease involving [place] coronary artery of [place] heart without angina pectoris, Obesity (BMI 30-39.9), Essential hypertension, IDDM (insulin dependent diabetes mellitus), Dyslipidemia, DAHL (dyspnea on exertion), Atypical chest pain losartan 50 mg tablet Take 50 mg by 0 04/08 1/ Discontinued mouth 2 (two) 2020 times daily. predniSONE 20 mg tablet Take three 20mg 50 tablet 0 03/23/202004/27/ Discontinued tablets daily x 5 2020 days, then take two and a half 20 mg tablets x 5 days, then take two 20 mg tablets continuing thereafter. cefdinir 300 mg Take 1 capsule by 14 capsule 0 04/17/202004/08 1/ Discontinued capsuleIndications: Acute mouth 2 (two) 2019 cystitis without times daily. hematuria documented as of this encounter (statuses as of 04/27/2020) Active Problems Problem Noted Date Pyelonephritis 04/25/2020 GCA (giant cell arteritis) 04/15/2020 Overview: Added automatically from request for romy tamera [id number] Symptomatic cholelithiasis 03/21/2019 Overview: Added automatically from request for romy tamera [id number] IDDM (insulin dependent diabetes mellitus) 10/01/2018 Chest pain 09/04/2018 Coronary artery disease involving [place] coronary nahun ry of [place] heart 09/04/2018 with angina pectoris Abnormal serum [...] Sign Reading Time Taken Comments Blood Pressure 147/92 04/27/2020 10:30 AM CDT Pulse 71 04/27/2020 10:30 AM CDT Temperature 36.4 C (97.6 F) 04/27/2020 10:30 AM CDT Respiratory Rate 18 04/27/2020 10:30 AM CDT Oxygen Saturation 98% 04/27/2020 10:30 AM CDT Inhaled Oxygen Concentration - - Weight 86.4 kg (190 lb 6.4 oz) 04/27/2020 7:54 AM CDT Height 167.6 cm (5' 6") 04/25/2020 3:31 PM CDT Body Mass Index 30.73 04/25/2020 3:31 PM CDT documented in this encounter Discharge Instructions AttachmentsThe following attachments cannot be sent through Care Everywhere. Pyelonephritis, Discharge Instructions for ([place])Pyelonephritis, Female (Adult) ([place])Ciprofloxacin tablets ([place])Lactobacillus Oral formulations ([place])documented in this encounter Progress Notes Lorenzo Franks FNP - 04/27/2020 12:20 PM CDT Subjective: Patient is a 64-year-old female who presents with periumbilical pain, back pain and dysuria. Patient found to have pyelonephritis and leukocytosis which I have been consulted for. Patientreports multiple UTI for the past year. Patient examined at bedside. Reports dysuria, nausea and back pain has improved. Objective: Vitals: 04/27/20 0325 04/27/20 0712 04/27/20 0754 04/27/20 1030 BP: 130/75 119/82 (!) 147/92 Pulse: 65 82 71 Resp: 18 18 18 Temp: 36.7 C (98 F) 36.3 C (97.4 F) 36.4 C (97.6 F) TempSrc: Temporal Artery Temporal Artery Temporal Artery SpO2: 98% 96% 98% Weight: 190 lb 6.4 oz (86.4 kg) Height: CBC WBC x10^3 (/CMM) Date Value 01/23/2005 5.9 WBC (10*3/L) Date Value 04/27/2020 20.80 (H) RBC x10^6 (/CMM) Date Value 01/23/2005 4.10 RBC (10*6/L) Date Value 04/27/2020 3.50 (L) PLT x10^3 (/CMM) Date Value 01/23/2005 354 PLT (10*3/L) Date Value 04/27/2020 488 (H) HGB Date Value 04/27/2020 10.1 g/dL (L) 01/23/2005 12.4 G/DL HCT (%) Date Value 04/27/2020 32.4 (L) 01/23/2005 37.1 CMP NA (mmol/L) Date Value 04/27/2020 139 K (mmol/L) Date Value 04/27/2020 4.2 CALCIUM (mg/dL) Date Value 04/27/2020 9.4 CL (mmol/L) Date Value 04/27/2020 108 BUN (mg/dL) Date Value 04/27/2020 29 (H) CREATININE (mg/dL) Date Value 04/27/2020 1.45 (H) GLUCOSE (mg/dL) Date Value 04/27/2020 159 (H) CO2 TOTAL (mmol/L) Date Value 04/27/2020 26 ALBUMIN (g/dL) Date Value 04/27/2020 3.7 T PROTEIN (g/dL) Date Value 04/27/2020 7.1 TOTAL BILI (mg/dL) Date Value 04/27/2020 0.2 BILI UNCON (mg/dL) Date Value 04/26/2020 0.4 BILI CONJ (mg/dL) Date Value 04/26/2020 0.0 ALT(SGPT) (U/L) Date Value 04/19/2019 15 ALTv (U/L) Date Value 04/27/2020 20 AST(SGOT) (U/L) Date Value 04/27/2020 36 ALK PHOS (U/L) Date Value 04/27/[address] 04/25: Exam: CT ABDOMEN PELVIS W CONTRAST Clinical History: Abd infection (incl peritonitis) Comparison: September 2018 Findings: The visualized lung bases are clear and there is no evidence of pleural or pericardial effusion. The liver shows a enhancing focus in the left lobe measuring approximately 1.0 cm (2:17), unchanged, likely a flash filling hemangioma. Another focus in the left lobe is also stable measuring 2 cm approximately (2:28), also likely a hemangioma. No evidence of intrahepatic biliary ductal dilatation. Focal fat infiltration is seen along the falciform ligament. The spleen, adrenals, and the pancreas are unremarkable. Prior cholecystectomy. The left kidney shows prior scarring and foci of abnormal enhancement near the upper and lower poles (4:77, and 68) are concerning for pyelonephritis. No evidence of focal enhancing lesions, hydronephrosis, or nephrolithiasis. Duplicated collecting system and 2 ureters are seen on the left side. There is likely diffuse in the pelvis before insertion into the urinary bladder but did not well-visualized. CT urogram is recommended for further evaluation. No evidence of free fluid, air, or lymphadenopathy is seen in the abdomen and pelvis. No evidence of dilated bowel loops, diverticulitis, or appendicitis. The urinary bladder is within normal limits. Multiple small enhancing uterine fibroids are seen. Bilateral small ovarian cysts are seen as hypodensities. The abdominal wall shows a supraumbilical fat-containing hernia from a defect measuring approximately 2 cm (2:92). The vessels show scattered atherosclerotic calcifications. The bones show degenerative changes with no suspicious focal lesions. IMPRESSION Impression: 1. Hypoenhancing foci in both kidneys are concerning for acute pyonephritis. Left renal scars. No evidence of focal enhancing lesions, hydronephrosis, or nephrolithiasis. 2. Duplicated collecting system and 2 ureters are seen on the left side. There is likely diffuse in the pelvis before insertion into the urinary bladder but did not well-visualized. CT urogram is recommended for further evaluation. 3. Multiple small uterine fibroids. Small bilateral ovarian cysts are suspected. Recommend further evaluation with pelvic ultrasound. 4. Two small hepatic hemangiomas, stable. Small fat-containing supraumbilical anterior abdominal wall hernia. ROS: General: Awake, alert no acute distress CV: S1,S2 RESP: Good breath sounds ABD: nontender, bowel sounds present : No CVA tenderness Assessment and plan: Leukocytosis, possibly reactive to steroids for Temporal arteritis Pyelonephritis Blood and urine cultures show no growth to date Diabetes mellitus, monitor glycemic control Zosyn day 3, upon discharge can change to Cipro PO Patient will need total of two weeks of antibiotics Will continue to monitor Patient discussed with Dr. Medrano Annie, MD Yasmeen - 04/27/2020 8:55 AM CDT [facility] Cardiology progress note Date of Service: 04/27/2020 Lauren Nolen is a 64 years old female hospitalized for pyelonephritis. Feeling better. PHYSICAL EXAM Vitals: 04/26/20 2342 04/27/20 0325 04/27/20 0712 04/27/20 0754 BP: 123/61 130/75 119/82 Pulse: 67 65 82 Resp: 18 18 18 Temp: 36.6 C (97.8 F) 36.7 C (98 F) 36.3 C (97.4 F) TempSrc: Temporal Artery Temporal Artery Temporal Artery SpO2: 97% 98% 96% Weight: 86.4 kg (190 lb 6.4 oz) Height: General: alert and oriented x 3 (person, place and date/time); no apparent distress HEENT: normocephalic atraumatic Neck: supple, no lymphadenopathy, no bruits, no JVD Lungs: clear to auscultation bilaterally Cardio: S1, S2, normal rate, regular; no murmurs, rubs or gallops Abdomen: non-distended : not examined Rectal: not examined Extremities: no clubbing, cyanosis, or edema Skin: no rashes Neuro: no focal deficits Medications: I have reviewed the patient's medications; see Medication Reconciliation. Labs: I have reviewed the patient's labs. ASSESSMENT AND PLAN Principal Problem: Pyelonephritis Active Problems: Obesity (BMI 30-39.9) Essential hypertension Dyslipidemia Coronary artery disease involving [place] coronary artery of [place] heart with angina pectoris IDDM (insulin dependent diabetes mellitus) Hypotension: Likely in the setting acute pyelonephritis/complicated UTI. Now improved. Rx as per primary team for acute pyelonephritis/complicated UTI. HTN: Acceptable. Currently on reduced Coreg 12.5 BiD. Off her home dose of Losartan 50 mg BiD, Basedon the BP, will restart her meds slowly. CAD: S/p 08/2018: Continue DAPT (ASA + Plavix). No bleeding manifestations. No chest pain. If needed Plavix may be interrupted for urological procedure. Continue ASA 81 mg perioperatively. Chronic diastolic HF. Stable. NT-proBNP (pg/mL) Date Value 04/26/2020 98 Dyslipidemia: Recommend to increase lipitor 80 mg daily. LDL CHOL (mg/dL) Date Value 04/17/2020 85 T2DM: as per primary team. Rx plan reviewed with the patient. Yasmeen Jauregui MD, FACC, FASE Tablet Making Machine Operator Helper, Division of Cardiology [facility] April Wei [facility] - 04/26/2020 11:02 AM CDTSubjective Patient ID: Lauren Nolen is a 64 year old female. 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 MPOA: No Living Arrangement: Home Address of living arrangement : [address] [place] [id number] Persons living in home: Self Barriers to returning home: None Baseline functional status- ambulation: Independent Functional status-baseline personal care: Independent Baseline functional status- driving: Dependent Baseline functional status- grocery shopping: Dependent Functional status-baseline housekeeping: Dependent Functional status-baseline meal prep: Requires minimal to moderate assistance Current functional status same as prior: Yes Do you have a PCP?: Yes Name of PCP: Jannie López Home Health Care Agency: No Provider Services: Yes Provider agency days and hours: Mon-Fri 8-12pm DME Company: No Equipment: Cane Hemodialysis: No Community resources utilized: None Funding Resources: Medicare Replacement;Medicaid Medicare Replacement name and information: [facility] Prescription coverage plan: Medicaid-3 slots Pharmacy where meds are filled: Other Other pharmacy: [facility] Anticipated services prior to disharge: Continue Medical Eval Expected mode of discharge transportation: Same as support system Additional Recommendations for DC: Medical clearance and arrange for new home health for diabetes management Additional info required for discharge planning: Pending medical evaluation Recommended discharge plan: Home;Home with new Home Health SFA Complete: Social Functional Assessment complete: Yes Alcohol Use Screening (AUDIT-C) How often do you have a drink containing alcohol?: Never SCORE: 0 Did patient elect to have resources provided: No Role of Care Management explained. Any issues or concerns with obtaining/affording your medications at home: no. Are you or your support system able to pickle maker medications at discharge: yes. Review of Systems Objective Physical Exam Assessment/Plan Home with provider assistance previously arranged and new home health JOHN Lockhart Patent Chemist - Care Management [facility] [phone] [email or web address] Robbie Todd MD - 04/26/2020 7:27 AM CDT Hospitalist Progress Note SUBJECTIVE: Feels better than admisison Abdominal pain and dysuria improving No fevers/chills, dizzines, cehst pain, sob No n/v Eating fine CURRENT MEDICATIONS - reviewed. Current Facility-Administered Medications Medication Dose Route Frequency Last Rate Last Dose carvediloL (COREG) tablet 12.5 mg 12.5 mg Oral BID MEALS insulin glargine (LANTUS U-100) injection 100 Units 100 Units Subcutaneous QHS lactobacillus acidophilus (ACIDOPHILLUS) 25 million cell -100 mg captab 1 tablet 1 tablet Oral BID 1 tablet at 04/26/20 0045 NaCl 0.9% (NS) IV infusion 1,000 mL 1,000 mL IV Infusion CONTINUOUS 50 mL/hr at 04/26/20 0045 pantoprazole (PROTONIX) EC tablet 20 mg 20 mg Oral DAILY predniSONE (DELTASONE) tablet 40 mg 40 mg Oral DAILY acetaminophen (TYLENOL) tablet 650 mg 650 mg Oral Q6HPRN aspirin EC tablet 81 mg 81 mg Oral DAILY atorvastatin (LIPITOR) tablet 40 mg 40 mg Oral QHS 40 mg at 04/25/202101 clopidogreL (PLAVIX) tablet 75 mg 75 mg Oral DAILY enoxaparin (LOVENOX) injection 40 mg 40 mg Subcutaneous DAILY ondansetron (ZOFRAN (PF)) injection 4 mg 4 mg Slow IV Push Q6HPRN piperacillin-tazobactam (ZOSYN) 3.375 g in NaCl 0.9% (NS) 100 mL MINI-BAG 3.375 g IV Piggyback Q6H ABX 3.375 g at 04/26/20 0326 Sliding Scale Insulin-Regular + Fsbg Testing Subcutaneous AC+HS 5 Units at 04/25/20 2109 PHYSICAL EXAM: BP (!) 146/85 | Pulse 71 | Temp 36.3 C (97.4 F) (Temporal Artery) | Resp 18 | Ht 1.676 m (5'6") | Wt 91 kg (200 lb 9.6 oz) | SpO2 97% | BMI 32.38 kg/m Temp: [35.9 C (96.7 F)-36.7 C (98.1 F)] Heart Rate (monitor): [69-103] Pulse: [63-76] Resp: [16-32] BP: (110-153)/(60-93) MAP (mmHg): [76-106] Intake/Output Summary (Last 24 hours) at 04/26/2020 0730 Last data filed at 04/26/2020 0400 Gross per 24 hour Intake 700 ml Output Net 700 ml NAD Anicteric sclera, oral mucosa clear Good air entry b/l RRR, nl s1s2 Abd soft NT No significant LE, no calf tenderness AAO, no gross deficits Skin warm and dry LABS/IMAGING - reviewed, pertinent results as below: CBC BMP PT/INR WBC x10^3 (/CMM) Date Value 01/23/2005 5.9 WBC (10*3/L) Date Value 04/26/2020 12.82 (H) NA (mmol/L) Date Value 04/26/2020 137 No results found for: PT RBC x10^6 (/CMM) Date Value 01/23/2005 4.10 RBC (10*6/L) Date Value 04/26/2020 3.53 (L) K (mmol/L) Date Value 04/26/2020 5.1 (H) INR (no units) Date Value 04/25/2020 0.9 PLT x10^3 (/CMM) Date Value 01/23/2005 354 PLT (10*3/L) Date Value 04/26/2020 534 (H) CALCIUM (mg/dL) Date Value 04/26/2020 9.2 HGB Date Value 04/26/2020 10.3 g/dL (L) 01/23/2005 12.4 G/DL CL (mmol/L) Date Value 04/26/2020 106 aPTT HCT (%) Date Value 04/26/2020 32.8 (L) 01/23/2005 37.1 BUN (mg/dL) Date Value 04/26/2020 31 (H) APTT Patient (Seconds) Date Value 04/25/2020 25 CREATININE (mg/dL) Date Value 04/26/2020 1.38 (H) IMAGING- Hospital Encounter on 04/25/20 CT ABDOMEN PELVIS W CONTRAST Narrative Exam: CT ABDOMEN PELVIS W CONTRAST Clinical History: Abd infection (incl peritonitis) Comparison: September 2018 Findings: The visualized lung bases are clear and there is no evidence of pleural or pericardial effusion. The liver shows a enhancing focus in the left lobe measuring approximately 1.0 cm (2:17), unchanged, likely a flash filling hemangioma. Another focus in the left lobe is also stable measuring 2 cm approximately (2:28), also likely a hemangioma. No evidence of intrahepatic biliary ductal dilatation. Focal fat infiltration is seen along the falciform ligament. The spleen, adrenals, and the pancreas are unremarkable. Prior cholecystectomy. The left kidney shows prior scarring and foci of abnormal enhancement near the upper and lower poles (4:77, and 68) are concerning for pyelonephritis. No evidence of focal enhancing lesions, hydronephrosis, or nephrolithiasis. Duplicated collecting system and 2 ureters are seen on the left side. There is likely diffuse in the pelvis before insertion into the urinary bladder but did not well-visualized. CT urogram is recommended for further evaluation. No evidence of free fluid, air, or lymphadenopathy is seen in the abdomen and pelvis. No evidence of dilated bowel loops, diverticulitis, or appendicitis. The urinary bladder is within normal limits. Multiple small enhancing uterine fibroids are seen. Bilateral small ovarian cysts are seen as hypodensities. The abdominal wall shows a supraumbilical fat-containing hernia from a defect measuring approximately 2 cm (2:92). The vessels show scattered atherosclerotic calcifications. The bones show degenerative changes with no suspicious focal lesions. Impression Impression: 1. Hypoenhancing foci in both kidneys are concerning for acute pyonephritis. Left renal scars. No evidence of focal enhancing lesions, hydronephrosis, or nephrolithiasis. 2. Duplicated collecting system and 2 ureters are seen on the left side. There is likely diffuse in the pelvis before insertion into the urinary bladder but did not well-visualized. CT urogram is recommended for further evaluation. 3. Multiple small uterine fibroids. Small bilateral ovarian cysts are suspected. Recommend further evaluation with pelvic ultrasound. 4. Two small hepatic hemangiomas, stable. Small fat-containing supraumbilical anterior abdominal wall hernia. ASSESSMENT/PLAN Lauren Nolen is a 64 year old female with Acute pyelonephritis complicated UTI Hx of recurrent UTI Abnormal CT abd findings with ureteral abnormalities. Needs outpatient CT urogram and urology f/u. Will consult urology Dr. Felder to see if he can see her tomorrow. If not possible, she needs outpatient urology f/u Failed outpatient treatment with cefdinir for E coli complciated UTI and E coli bacteremia from cultures from 04/17/2020 Leukocytsois, could be from steroids Uterine fibroids and ovarian cyst on CT. I discussed these findings with patient on admisison and recommended outpatient satellite manager f/u and outpatient pelvic U/S. Possible GCA, awaiting temporal artery biopsy, has f/u with cecily, on prednisone, currently 40 mg qd STEPHEN on CKD 3 chronic diastolic CHF CAD s/p PCI Hypertension Follows Dr. Norris Due to lower bp and sepsis, hold imdur, losartan, norvasc, coreg Continue dapt and lower dose coreg and lipitor Dyslipidemia IDDM uncontrolled with hyperglycemia. A1c 10.4. Takes januvia, glipizide, tujeo 100 units in AM. Reusme home medications with sliding scale GERD Morbid obesity Worsening hyperglcyemia, monitor closely Iv zosyn day 1 F/u cultures Repeat blood cultuers in AM on 04/26, need to see if infection is clearing the blood Due to lower bp and sepsis, hold imdur, losartan, norvasc, coreg Hold bp meds, will need to restart them soon. Might not be able to start aldactone given hyperkalemia today, discuss with nehprologist Lower dose of coreg Asa/plavix/lipitor Consult nephrology Dr. Renteria Consult cardiology Dr. Norris Consult ID Consult urology Dr. Felder, notified this morning dvt proph hep subq Full Code, advance care planning dsicussed, surrogate decision maker in chart On dishcarge please give instructions as above documented in this encounter Plan of Treatment Date Type Specialty Care Team Description 05/26/2020 Hospital Encounter Surgery Vinod Flores MD GCA (giant cell [address] arteritis) [place], [place] [address] 05/26/2020 Anesthesia Event Surgery Robbie Crabtree MD [address] [place] [address] 05/26/2020 Surgery Surgery Vinod Flores M D TEMPORAL ARTERY BIOPSY [address] [place], [place] [address] 06/10/2020 Office Visit Cardiology Zeny Norris MD [address] [place] [address] [place] [id number] Name Type Priority Associated Diagnoses Date/Ti me BLOOD CULTURE SCREEN LAB STAT Periumbilical abdomi nal 04/25/2020 2:12 PM CDT pain Urinary tract infection without hematuria, site unspecified Leukocytosis, unspecified type BLOOD CULTURE SCREEN LAB STAT Periumbilical abdomi nal 04/25/2020 12:44 PM CDT pain Urinary tract infection without hematuria, site unspecified Leukocytosis, unspecified type Name Type Priority Associated Diagnoses Order S chedule COMP. 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 POCT GLUCOSE Routine 04/27/2020 7:18 Results for (AUTOMATED) AM CDT this procedure are in the results section. CBC WITH DIFF Routine 04/27/2020 3:50 Results fo r AM CDT this procedure are in the results section. COMP. METABOLIC PANEL Routine 04/27/2020 3:50 Re sults for (69927) AM CDT this procedure are in the results section. URIC ACID Routine 04/27/2020 3:50 Results for AM CDT this procedure are in the results section. POCT GLUCOSE Routine 04/27/2020 3:21 Results for (AUTOMATED) AM CDT this procedure are in the results section. POCT GLUCOSE Routine 04/26/2020 11:41 Results for (AUTOMATED) PM CDT this procedure are in the results section. POCT GLUCOSE Routine 04/26/2020 7:48 Results for (AUTOMATED) PM CDT this procedure are in the results section. US RETROPERITONEAL Routine 04/26/2020 6:00 Acute renal failur e, Results for COMPLETE PM CDT unspecified acute this proce dure renal failure type are in th e results section. PROTEIN CREAT RATIO Routine 04/26/2020 4:03 Resu lts for URINE RANDOM PM CDT this procedure are in the results section. POCT GLUCOSE Routine 04/26/2020 3:57 Results for (AUTOMATED) PM CDT this procedure are in the results section. POCT GLUCOSE Routine 04/26/2020 12:01 Results for (AUTOMATED) PM CDT this procedure are in the results section. POCT GLUCOSE Routine 04/26/2020 10:25 Results for (AUTOMATED) AM CDT this procedure are in the results section. POCT GLUCOSE Routine 04/26/2020 7:42 Results for (AUTOMATED) AM CDT this procedure are in the results section. N-TERMINAL PRO-BNP Routine 04/26/2020 3:33 Resul ts for AM CDT this procedure are in the results section. CBC WITH DIFF Routine 04/26/2020 3:33 Results fo r AM CDT this procedure are in the results section. SEDIMENTATION RATE Routine 04/26/2020 3:33 Resul ts for AM CDT this procedure are in the results section. COMP. METABOLIC PANEL Routine 04/26/2020 3:33 Re sults for ([id number]) AM CDT this procedure are in the results section. HEPATIC FUNCTION PANEL NENA 04/26/2020 3:33 R esults for ([id number]) AM CDT this procedure (ALB,T.PRO,BILI are in the T,BU/BC,ALT,AST,ALK results PHOS) section. C-REACTIVE PROTEIN Routine 04/26/2020 3:33 Resul ts for AM CDT this procedure are in the results section. MAGNESIUM Routine 04/26/2020 3:33 Results for AM CDT this procedure are in the results section. URIC ACID Routine 04/26/2020 3:33 Results for AM CDT this procedure are in the results section. POCT GLUCOSE Routine 04/26/2020 3:31 Results for (AUTOMATED) AM CDT this procedure are in the results section. POCT GLUCOSE Routine 04/25/2020 9:03 Results for (AUTOMATED) PM CDT this procedure are in the results section. POCT GLUCOSE Routine 04/25/2020 4:18 Results for (AUTOMATED) PM CDT this procedure are in the results section. BLOOD CULTURE SCREEN STAT 04/25/2020 2:12 Periumbilical PM CDT abdominal pain Urinary tract infection without hematuria, site unspecified Leukocytosis, unspecified type COVID-19 (ID NOW RAPID STAT 04/25/2020 12:44 Periumbilical Results for TESTING) PM CDT abdominal pain this procedure Urinary tract are in the infection without results hematuria, site section. unspecified Leukocytosis, unspecified type Pyelonephritis BLOOD CULTURE SCREEN STAT 04/25/2020 12:44 Periumbilical PM CDT abdominal pain Urinary tract infection without hematuria, site unspecified Leukocytosis, unspecified type URINE CULTURE STAT 04/25/2020 12:31 Periumbilical Results f or PM CDT abdominal pain this procedure Urinary tract are in the infection without results hematuria, site section. unspecified Leukocytosis, unspecified type EKG-12 LEAD Routine 04/25/2020 11:[address] ABDOMEN PELVIS W STAT 04/25/2020 11:21 Periumbilical Res ults for CONTRAST AM CDT abdominal pain this procedur e are in the results section. URINALYSIS STAT 04/25/2020 9:48 Periumbilical Results fo r AM CDT abdominal pain this procedur e are in the results section. ACTIVATED PARTIAL STAT 04/25/2020 9:48 Periumbilical Resul ts for THRMPLAS AMBER AM CDT abdominal pain this procedur e are in the results section. PROTHROMBIN TIME / INR STAT 04/25/2020 9:48 Periumbilical Results for AM CDT abdominal pain this procedur e are in the results section. GLYCOSYLATED Add-on 04/25/2020 9:48 Results for HEMOGLOBIN (A1C) AM CDT this proced ure are in the results section. CBC WITH DIFF STAT 04/25/2020 9:48 Periumbilical Results f or AM CDT abdominal pain this procedur e are in the results section. N-TERMINAL PRO-BNP Add-on 04/25/2020 9:47 Resul ts for AM CDT this procedure are in the results section. BASIC METABOLIC PANEL STAT 04/25/2020 9:47 Periumbilical R esults for (NA, K, CL, CO2, AM CDT abdominal pain this proc edure GLUCOSE, BUN, are in the CREATININE, CA) results section. HEPATIC FUNCTION PANEL STAT 04/25/2020 9:47 Periumbilical Results for ([id number]) AM CDT abdominal pain this procedur e (ALB,T.PRO,BILI are in the T,BU/BC,ALT,AST,ALK results PHOS) section. MAGNESIUM NENA Add-On 04/25/2020 9:47 Results for AM CDT this procedure are in the results section. LIPASE STAT 04/25/2020 9:47 Periumbilical Results fo r AM CDT abdominal pain this procedur e are in the results section. URIC ACID NENA Add-On 04/25/2020 9:47 Results for AM CDT this procedure are in the results section. CREATINE KINASE Add-on 04/25/2020 9:47 Results for AM CDT this procedure are in the results section. PHOSPHORUS NENA Add-On 04/25/2020 9:47 Results for AM CDT this procedure are in the results section. LACTIC ACID WHOLE STAT 04/25/2020 9:44 Periumbilical Resul ts for BLOOD AM CDT abdominal pain this procedur e are in the results section. EKG-12 LEAD STAT 04/25/2020 9:17 AM CDT documented in this encounter Results POCT GLUCOSE (AUTOMATED) (04/27/2020 10:35 AM CDT) Pathologist Sig nature POCT GLU 212 (H) 70 - 110 mg/dL [facility] Specimen Blood Performing Organization Address [facility] [place] Phone Number [facility] CLIA: [id number], [address] [place] [address] POCT GLUCOSE (AUTOMATED) (04/27/2020 7:18 AM CDT) Pathologist Sig [facility] POCT GLU 83 70 - 110 mg/dL [facility] Specimen Blood Performing Organization Address [facility] [place] Phone Number [facility] CLIA: [id number], [address] [place], [place] [address] URIC ACID (04/27/2020 3:50 AM CDT) Pathologist Sig [place] URIC ACID 3.8 2.9 - 6.0 mg/dL [facility] Specimen Blood - ARM, RIGHT Performing Organization Address [facility] [place] Phone Number [facility] CLIA: [id number], [address] [place], [place] [address] CBC WITH DIFF (04/27/2020 3:50 AM CDT) Pathologist Sig nature WBC 20.80 (H) 4.30 - 11.10 [facility] 10*3/L [facility] RBC 3.50 (L) 3.93 - 5.25 [facility] 10*6/L [facility] HGB 10.1 (L) 11.6 - 15.0 [facility] g/dL [facility] HCT 32.4 (L) 35.7 - 45.2 % [facility] MCV 92.6 80.6 - 95.5 fL [facility] MCH 28.9 25.9 - 32.8 pg [facility] MCHC 31.2 (L) 31.6 - 35.1 [facility] g/dL [facility] RDW-SD 42.3 39.0 - 49.9 fL [facility] RDW-CV 12.6 12.0 - 15.5 % [facility] PLT 488 (H) 166 - 358 [facility] 10*3/L [facility] MPV 8.8 (L) 9.5 - 12.9 fL [facility] NRBC/100 WBC 0.0 0.0 - 10.0 /100 [facility] WBCs [facility] NRBC x10^3 <0.01 10*3/L [facility] GRAN MAT (NEUT) % 74.9 % [facility] IMM GRAN % 2.40 % [facility] LYMPH % 16.8 % [facility] MONO % 5.4 % [facility] EOS % 0.3 % [facility] BASO % 0.2 % [facility] GRAN MAT x10^3(ANC) 15.58 (H) 1.88 - 7.09 [facility] 10*3/uL [facility] IMM GRAN x10^3 0.49 (H) 0.00 - 0.06 [facility] 10*3/uL [facility] LYMPH x10^3 3.50 (H) 1.32 - 3.29 [facility] 10*3/uL [facility] MONO x10^3 1.12 (H) 0.33 - 0.92 [facility] 10*3/uL [facility] EOS x10^3 0.06 0.03 - 0.39 [facility] 10*3/uL [facility] BASO x10^3 0.05 0.01 - 0.07 [facility] 10*3/uL [facility] Specimen Blood - ARM, RIGHT Performing Organization Address City/State/Zipcode Phone Number [facility] CLIA: [id number], [address] [place] [address] COMP. METABOLIC PANEL ([id number]) (04/27/2020 3:50 AM CDT) NA 139 135 - 145 [facility] mmol/L [facility] K 4.2 3.5 - 5.0 [facility] mmol/L [facility] CL 108 98 - 108 mmol/L [facility] CO2 TOTAL 26 23 - 31 mmol/L [facility] AGAP 5 2 - 16 [facility] BUN 29 (H) 7 - 23 mg/dL [facility] GLUCOSE 159 (H) 70 - 110 mg/dL [facility] CREATININE 1.45 (H) 0.50 - 1.04 [facility] mg/dL [facility] TOTAL BILI 0.2 0.1 - 1.1 mg/dL [facility] CALCIUM 9.4 8.6 - 10.6 [facility] mg/dL [facility] T PROTEIN 7.1 6.3 - 8.2 g/dL [facility] ALBUMIN 3.7 3.5 - 5.0 g/dL [facility] ALK PHOS 74 34 - 122 U/L [facility] ALTv 20 5 - 35 U/L [facility] AST(SGOT) 36 13 - 40 U/L [facility] eGFR Calculation 36.5 mL/min/1.73m2 [facility] ([facility] LABORATORY Jordanian) eGFR Calculation 44.2 mL/min/1.73m2 [facility] () [facility] Specimen Blood - ARM, RIGHT Narrative Performed At Association of Glomerular Filtration Rate (GFR) [facility] and Staging of Kidney Disease* + [...] abnormalities in imaging tests). Performing Organization Address [facility] Phone Number [facility] CLIA: [id number], [address] [place] [address] POCT GLUCOSE (AUTOMATED) (04/27/2020 3:21 AM CDT) Pathologist Sig nature POCT GLU 189 (H) 70 - 110 mg/dL [facility] Specimen Blood Performing Organization Address [facility] [place] Phone Number [facility] CLIA: [id number], [address] [place] [address] POCT GLUCOSE (AUTOMATED) (04/26/2020 11:41 PM CDT) Pathologist Sig nature POCT GLU 308 (H) 70 - 110 mg/dL [facility] Specimen Blood Performing Organization Address [facility] [place] Phone Number [facility] CLIA: [id number], [address] [place] [address] POCT GLUCOSE (AUTOMATED) (04/26/2020 7:48 PM CDT) Pathologist Sig nature POCT GLU 349 (H) 70 - 110 mg/dL [facility] Specimen Blood Performing Organization Address [facility] [place] Phone Number [facility] CLIA: [id number], [address] [place], [place] [address] US RETROPERITONEAL COMPLETE (04/26/2020 6:00 PM CDT) Specimen Impressions Performed At PACS/VR/DOSE The kidneys are mildly echogenic, suggestive of medica l renal disease. No hydronephrosis. Bilateral renal cysts measure up to 1.8 cm on the right side and 1 cm on the left side. Preliminary Report Dictated by Resident: Salina Ibanez I, Anjel Shields MD., have reviewed this study and agree with the above report. Narrative Performed At RENAL ULTRASOUND PACS/VR/DOSE HISTORY: Acute renal failure. COMPARISON: None. TECHNIQUE: Moeller-scale and color Doppler images of the kidneys and bladder were obtained. FINDINGS: RIGHT KIDNEY: Normal size and contour. There is mildly increased cortical echogenicity. The right kidney measures 11 x 4.9 x 5.3 cm. Anechoic lesion in the upper pole of the right kidney me asures 1.8 x 1.4 x 1.7 cm. No hydronephrosis. LEFT KIDNEY: Normal size and contour. Th ere is mildly increased cortical echogenicity. The left kidney measures 11.5 x 5.3 x 5.7 cm. An anechoic lesion in the upper pole measures 0.6 x 0.5 x 0.8 cm. Another lesion in the lower pole measures 1.0 x 0.7 x 0.7 cm. No hydronephrosis. BLADDER: Unremarkable. Procedure Note [facility], Radiant Results Inft User - 2019 7:14 PM CDT RENAL ULTRASOUND HISTORY: Acute renal failure. COMPARISON: None. TECHNIQUE: Moeller-scale and color Doppler images of the kidneys and bladder were obtained. FINDINGS: RIGHT KIDNEY: Normal size and contour. T here is mildly increased cortical echogenicity. The right kidney measures 11 x 4.9 x 5.3 cm. Anechoic lesion in the upper pole of the right kidney me asures 1.8 x 1.4 x 1.7 cm. No hydronephrosis. LEFT KIDNEY: Normal size and contour. Th ere is mildly increased cortical echogenicity. The left kidney measures 11.5 x 5.3 x 5.7 cm. An anechoic lesion in the upper pole measures 0.6 x 0.5 x 0.8 cm. Another lesion in the lower pole measures 1.0 x 0.7 x 0.7 cm. No hydronephrosis. BLADDER: Unremarkable. IMPRESSION The kidneys are mildly echogenic, sugges tive of medical renal disease. No hydronephrosis. Bilateral renal cysts measure up to 1.8 cm on the right side and 1 cm on the left side. Preliminary Report Dictated by Resident: Salina Ibanez I, Anjel Shields MD., have reviewed th is study and agree with the above report. Performing Organization Address City/[facility] Phone Number PACS/VR/DOSE PROTEIN CREAT RATIO URINE RANDOM (04/26/2020 4:03 PM CDT) Pathologist Sig nature T. PROT U 14 mg/dL [facility] CREAT U 53.7 mg/dL [facility] Protein/Creatinine 0.3 0.0 - 2.0 [facility] Urine [facility] Specimen Urine - URINE, CLEAN CATCH Performing Organization Address [facility] [place] Phone Number [facility] CLIA: [id number], [address] [address] POCT GLUCOSE (AUTOMATED) (04/26/2020 3:57 PM CDT) Pathologist Sig nature POCT GLU 435 (H) 70 - 110 mg/dL [facility] Specimen Blood Performing Organization Address [facility] [place] Phone Number [facility] CLIA: [id number], [address] [address] POCT GLUCOSE (AUTOMATED) (04/26/2020 12:01 PM CDT) Pathologist Sig nature POCT GLU 396 (H) 70 - 110 mg/dL [facility] Specimen Blood Performing Organization Address [facility] [place] Phone Number [facility] CLIA: [id number], [address] [place] [address] POCT GLUCOSE (AUTOMATED) (04/26/2020 10:25 AM CDT) Pathologist Sig nature POCT GLU 447 (H) 70 - 110 mg/dL [facility] Specimen Blood Performing Organization Address [facility] [place] Phone Number [facility] CLIA: [id number], [address] [address] POCT GLUCOSE (AUTOMATED) (04/26/2020 7:42 AM CDT) Pathologist Sig nature POCT GLU 322 (H) 70 - 110 mg/dL [facility] Specimen Blood Performing Organization Address [facility] Phone Number [facility] CLIA: [id number], [address] [place], [place] [address] C-REACTIVE PROTEIN (04/26/2020 3:33 AM CDT) Pathologist Sig nature CRP 0.8 (H) <0.8 mg/dL [facility] Specimen Blood - HAND, LEFT Performing Organization Address City/[facility] Phone Number [facility] CLIA: [id number], [address] [place], [place] [address] SEDIMENTATION RATE (04/26/2020 3:33 AM CDT) Pathologist Sig nature ESR 15 0 - 20 mm/HR [facility] Specimen Blood - HAND, LEFT Performing Organization Address [facility] Phone Number [facility] CLIA: [id number], [address] [place], [place] [address] URIC ACID (04/26/2020 3:33 AM CDT) Pathologist Sig nature URIC ACID 4.8 2.9 - 6.0 mg/dL [facility] Specimen Blood - HAND, LEFT Performing Organization Address [facility] Phone Number [facility] CLIA: [id number], [address] [place], [place] [address] MAGNESIUM (04/26/2020 3:33 AM CDT) Pathologist Sig nature MAGNESIUM 1.8 1.7 - 2.4 mg/dL [facility] Specimen Blood - HAND, LEFT Performing Organization Address [facility] Phone Number [facility] CLIA: [id number], [address] [place], [place] [address] N-TERMINAL PRO-BNP (04/26/2020 3:33 AM CDT) Pathologist Sig nature NT-proBNP 98 <=125 pg/mL [facility] Specimen Blood - HAND, LEFT Narrative Performed At Biotin has been reported to cause a negative [facility] bias, interpret results relative to patient's use of biotin. Performing Organization Address City/State/Zipcode Phone Number [facility] CLIA: [id number], [address] [place], [place] [address] COMP. METABOLIC PANEL ([id number]) (04/26/2020 3:33 AM CDT) NA 137 135 - 145 [facility] mmol/L [facility] K 5.1 (H) 3.5 - 5.0 [facility] mmol/L [facility] CL 106 98 - 108 mmol/L [facility] CO2 TOTAL 24 23 - 31 mmol/L [facility] AGAP 7 2 - 16 [facility] BUN 31 (H) 7 - 23 mg/dL [facility] GLUCOSE 402 (H) 70 - 110 mg/dL [facility] CREATININE 1.38 (H) 0.50 - 1.04 [facility] mg/dL [facility] TOTAL BILI 0.3 0.1 - 1.1 mg/dL [facility] CALCIUM 9.2 8.6 - 10.6 [facility] mg/dL [facility] T PROTEIN 7.1 6.3 - 8.2 g/dL [facility] ALBUMIN 3.8 3.5 - 5.0 g/dL [facility] ALK PHOS 85 34 - 122 U/L [facility] ALTv 23 5 - 35 U/L [facility] AST(SGOT) 20 13 - 40 U/L [facility] eGFR Calculation 38.6 mL/min/1.73m2 [facility] ([facility] LABORATORY Jordanian) eGFR Calculation 46.8 mL/min/1.73m2 [facility] () [facility] Specimen Blood - HAND, LEFT Narrative Performed At Association of Glomerular Filtration Rate (GFR) [facility] and Staging of Kidney Disease* + [...] abnormalities in imaging tests). Performing Organization Address [facility] [place] Phone Number [facility] CLIA: [id number], [address] [place] [address] HEPATIC FUNCTION PANEL ([id number]) (ALB,T.PRO,BILI T,BU/BC,ALT,AST,ALK PHOS) (04/26/2020 3:33 AM CDT) Pathologist Sig nature TOTAL BILI 0.3 0.1 - 1.1 mg/dL [facility] BILI UNCON 0.4 0.1 - 1.1 mg/dL [facility] BILI CONJ 0.0 0.0 - 0.3 mg/dL [facility] T PROTEIN 7.1 6.3 - 8.2 g/dL [facility] ALBUMIN 3.8 3.5 - 5.0 g/dL [facility] ALK PHOS 85 34 - 122 U/L [facility] ALTv 23 5 - 35 U/L [facility] AST(SGOT) 20 13 - 40 U/L [facility] Specimen Blood - HAND, LEFT Performing Organization Address [facility] [place] [facility] Phone Number [facility] CLIA: [id number], [address] [place], [place] [address] CBC with Differential (04/26/2020 3:33 AM CDT) Pathologist Sig nature WBC 12.82 (H) 4.30 - 11.10 [facility] 10*3/L [facility]ITAL [facility] RBC 3.53 (L) 3.93 - 5.25 [facility] 10*6/L [facility] HGB 10.3 (L) 11.6 - 15.0 [facility] g/dL [facility] HCT 32.8 (L) 35.7 - 45.2 % [facility] MCV 92.9 80.6 - 95.5 fL [facility] MCH 29.2 25.9 - 32.8 pg [facility] MCHC 31.4 (L) 31.6 - 35.1 [facility] g/dL [facility]ITAL [facility] RDW-SD 43.2 39.0 - 49.9 fL [facility] RDW-CV 12.8 12.0 - 15.5 % [facility] PLT 534 (H) 166 - 358 [facility] 10*3/L [facility]ITAL [facility] MPV 8.7 (L) 9.5 - 12.9 fL [facility] NRBC/100 WBC 0.0 0.0 - 10.0 /100 [facility] WBCs [facility] NRBC x10^3 <0.01 10*3/L [facility] GRAN MAT (NEUT) % 83.9 % [facility] IMM GRAN % 4.10 % [facility] LYMPH % 9.2 % [facility] MONO % 2.4 % [facility] EOS % 0.2 % [facility] BASO % 0.2 % [facility] GRAN MAT x10^3(ANC) 10.75 (H) 1.88 - 7.09 [facility] 10*3/uL HOSPITAL [facility] IMM GRAN x10^3 0.53 (H) 0.00 - 0.06 [facility] 10*3/uL [facility]ITAL [facility] LYMPH x10^3 1.18 (L) 1.32 - 3.29 [facility] 10*3/uL [facility]ITAL [facility] MONO x10^3 0.31 (L) 0.33 - 0.92 [facility] 10*3/uL H[facility]PITAL [facility] EOS x10^3 <0.03 (L) 0.03 - 0.39 [facility] 10*3/uL [facility]ITAL [facility] BASO x10^3 0.03 0.01 - 0.07 [facility] 10*3/uL [facility]ITAL [facility] Specimen Blood - HAND, LEFT Performing Organization Address City/State/Zipcode Phone Number [facility] CLIA: [id number], [address] [place], [place] [address] POCT GLUCOSE (AUTOMATED) (04/26/2020 3:31 AM CDT) Pathologist Sig nature POCT GLU 406 (H) 70 - 110 mg/dL [facility] Specimen Blood Performing Organization Address [facility] [place] [facility] Phone Number [facility] CLIA: [id number], [address] [place], [place] [address] POCT GLUCOSE (AUTOMATED) (04/25/2020 9:03 PM CDT) Pathologist Sig nature POCT GLU 314 (H) 70 - 110 mg/dL [facility] Specimen Blood Performing Organization Address [facility] [place] [facility] Phone Number [facility] CLIA: [id number], [address] [place], [place] [address] POCT GLUCOSE (AUTOMATED) (04/25/2020 4:18 PM CDT) Pathologist Sig nature POCT GLU 76 70 - 110 mg/dL [facility] Specimen Blood Performing Organization Address [facility] [place] Phone Number [facility] CLIA: [id number], [address] [address] 15 [facility] COVID-19 (ID NOW RAPID TESTING) (04/25/2020 12:44 PM CDT) SARS-CoV-2 Rapid ID Not Detected Not Detected [facility] Specimen Swab - NASOPHARYNGEAL SWAB Narrative Performed At ID NOW COVID-19 Assay is an isothermal nucleic [facility] acid amplification test intended for the qualitative detection of nucleic acid from SARS-CoV-2 viral RNA in nasopharyngeal (OUTREACH ASSISTANT) specimens. It is used under Emergency Use Authorization (EUA) by FDA. The limit of detection (LOD) of the assay is 125 Genome Equivalents/mL. A positive result is indicative of the presence of SARS-CoV-2 RNA. Clinical correlation with patient history and other diagnostic information is necessary to determine patient infection status. A negative (Not Detected) result does not preclude SARS-CoV-2 infection. In patients with clinical symptoms and other tests that are consistent with SARS-CoV-2 infection, negative results should be treated as presumptive negative and a new specimen should be tested with alternative PCR molecular test. Invalid: Please collect a new specimen for repeat patient testing if clinically indicated. Performing Organization Address City/State/Zipcode Phone Number [facility] CLIA: [id number], [address] [place], [place] [address] URINE CULTURE (04/25/2020 12:31 PM CDT) URINE CULTURE < 10,000 CFU/mL mixed [facility] aerobic organisms - SERVICES suggests endogenous microbial contamination Specimen Urine - URINE, CLEAN CATCH Performing Organization Address City/State/Zipcode Phone Number [facility] CLIA: [id number], [address] [place], [place] [address] [address] [facility] [place] CT ABDOMEN PELVIS W CONTRAST (04/25/2020 11:21 AM CDT) Specimen Impressions Performed At Impression: PACS/VR/DOSE 1. Hypoenhancing foci in both kidneys are concerning for acute pyonephritis. Left renal scars. No evide nce of focal enhancing lesions, hydronephrosis, or nephrolithiasis. 2. 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 There is likely diffuse in the pelvis be fore insertion into the urinary bladder but did not well-visualized. CT urogram is rec ommended for further evaluation. 3. Multiple small uterine fibroids. Sm all bilateral ovarian cysts are suspected. Recommend further evaluation with pelvic ultrasound. 4. Two small hepatic hemangiomas, stab le. Small fat-containing supraumbilical anterior abdominal wall hernia. Narrative Performed At Exam: CT ABDOMEN PELVIS W CONTRAST PACS/VR/DOSE Clinical History: Abd infection (incl pe ritonitis) Comparison: September 2018 Findings: The visualized lung bases are clear and there is no ev idence of pleural or pericardial effusion. The liver shows a enhancing focus in the left lobe ty suring approximately 1.0 cm (2:17), unchanged, likely a flash filling heman gioma. Another focus in the left lobe is also stable measuring 2 cm approxi mately (2:28), also likely a hemangioma. No evidence of intrahepatic bilia ry ductal dilatation. Focal fat infiltration is seen along the falciform ligament. The spleen, adrenals, and the pancreas a re unremarkable. Prior cholecystectomy. The left kidney shows prior scarring and foci of abnormal enhancement near the upper and lower maxine es (4:77, and 68) are concerning for pyelonephritis. No evidence of focal enhancing les ions, hydronephrosis, or nephrolithiasis. Duplicated collecting system and 2 ureters are seen on the left side. There is likely diffuse in the pelvis b efore insertion into the urinary bladder but did not well-visualized. CT ur ogram is recommended for further evaluation. No evidence of free fluid, air, or lymphadenopathy is seen in the abdomen and pelvis. No evidence of dilated bowel loops, diverticulitis, or appendicitis. The urinary bladder is within normal mcneill its. Multiple small enhancing uterine fibroids are seen. Bilateral small o varian cysts are seen as hypodensities. The abdominal wall shows a supraumbilica l fat-containing hernia from a defect measuring approximately 2 cm (2:9 2). The vessels show scattered atherosclerotic calcifications. The bones show degener ative changes with no suspicious focal lesions. Procedure Note [facility], Radiant Results Inft User - 2019 12:13 PM CDT Exam: CT ABDOMEN PELVIS W CONTRAST Clinical History: Abd infection (incl pe ritonitis) Comparison: September 2018 Findings: The visualized lung bases are clear and there is no evidence of pleural or pericardial effusion. The liver shows a enhancing focus in the left lobe measuring approximately 1.0 cm (2:17), unchanged, likely a flash filling hemangioma. Another focus in the left lobe is also stable measurin g 2 cm approximately (2:28), also likely a hemangioma. No evidence of intr ahepatic biliary ductal dilatation. Focal fat infiltration is seen along the falciform ligament. The spleen, adrenals, and the pancreas a re unremarkable. Prior cholecystectomy. The left kidney shows p rior scarring and foci of abnormal enhancement near the upper and lower maxine es (4:77, and 68) are concerning for pyelonephritis. No evidence of focal enhancing lesions, hydronephrosis, or nephrolithiasis. Duplicated collectin g system and 2 ureters are seen on the left side. There is likely diffuse i n the pelvis before insertion into the urinary bladder but did not well-vis ualized. CT urogram is recommended for further evaluation. No evidence of free fluid, air, or lymph adenopathy is seen in the abdomen and pelvis. No evidence of dilated bowel loops, diverticulitis, or appendicitis. The urinary bladder is wit hin normal limits. Multiple small enhancing uterine fibroids are seen. Mirza ateral small ovarian cysts are seen as hypodensities. The abdominal wall shows a supraumbilica l fat-containing hernia from a defect measuring approximately 2 cm (2:9 2). The vessels show scattered atherosclerotic calcifications. The bone s show degenerative changes with no suspicious focal lesions. IMPRESSION Impression: 1. Hypoenhancing foci in both kidneys a re concerning for acute pyonephritis. Left renal scars. No evide nce of focal enhancing lesions, hydronephrosis, or nephrolithiasis. 2. Duplicated collecting system and 2 u reters are seen on the left side. There is likely diffuse in the pelvis be fore insertion into the urinary bladder but did not well-visualized. CT urogram is recommended for further evaluation. 3. Multiple small uterine fibroids. Sma ll bilateral ovarian cysts are suspected. Recommend further evaluation with pelvic ultrasound. 4. Two small hepatic hemangiomas, stabl e. Small fat-containing supraumbilical anterior abdominal wall h ernia. Performing Organization Address [facility] Phone Number PACS/VR/DOSE GLYCOSYLATED HEMOGLOBIN (A1C) (04/25/2020 9:48 AM CDT) Pathologist Sig nature HGB A1C 10.4 (H) 4.0 - 6.0 % [facility] Specimen Blood - VENOUS Narrative Performed At %A1C (NGSP) Interpretation (ADA) [facility] 4.8-5.6 Normal or (Non-Diabetic Ra nge) 5.7-6.4 Increased Risk (Pre-Diabet ic) >6.5 Diabetes Indicated Performing Organization Address City/[facility] Phone Number [facility] CLIA: [id number], [address] [place], [place] [address] Urinalysis (04/25/2020 9:48 AM CDT) Pathologist Sig nature APPEARANCE Hazy (A) Clear [facility] COLOR Yellow Yellow [facility] PH 6.0 4.8 - 8.0 [facility] SP GRAVITY 1.014 1.003 - 1.030 [facility] GLU U QUAL Normal Normal [facility] BLOOD Negative Negative [facility] KETONES Negative Negative [facility] PROTEIN Negative Negative [facility] UROBILIN Normal Normal [facility] BILIRUBIN Negative Negative [facility] NITRITE Negative Negative [facility] LEUK JOYCE 500/uL (A) Negative [facility] RBC/HPF 2 0 - 3 HPF [facility] WBC/HPF 56 (H) 0 - 5 HPF [facility] BACTERIA Few (A) Negative [facility] SQ EPITH 2 HPF [facility] GRAN CASTS 3 (H) <=1 LPF [facility] Specimen Urine - URINE, CLEAN CATCH Performing Organization Address City/[facility]/Zipcode Phone Number [facility] CLIA: [id number], [address] [place] [address] Prothrombin Time (PT) / INR (04/25/2020 9:48 AM CDT) PROTIME PATIENT 11.9 (L) 12.0 - 14.7 [facility] LABORATORY INR 0.9Comment: Normal [facility] INR <1.1; Warfarin [facility] Therapeutic range LABORATORY 2.0 to 3.0 or 2.5 to 3.5, depending upon the indications. Specimen Blood - VENOUS Performing Organization Address City/[facility] Phone Number [facility] CLIA: [id number], [address] [place] [address] aPTT (04/25/2020 9:48 AM CDT) Pathologist Sig nature APTT Patient 25 23 - 38 Seconds [facility] Specimen Blood - VENOUS Narrative Performed At The [facility] patient population mean normal value [facility] for aPTT is 30 seconds. Performing Organization Address City/[facility]/Zipcode Phone Number [facility] CLIA: [id number], [address] [place] [address] CBC with Differential (04/25/2020 9:48 AM CDT) Pathologist Sig nature WBC 17.86 (H) 4.30 - 11.10 [facility] 10*3/L [facility] RBC 3.70 (L) 3.93 - 5.25 [facility] 10*6/L [facility] HGB 10.7 (L) 11.6 - 15.0 [facility] g/dL [facility] HCT 34.1 (L) 35.7 - 45.2 % [facility] MCV 92.2 80.6 - 95.5 fL [facility] MCH 28.9 25.9 - 32.8 pg [facility] MCHC 31.4 (L) 31.6 - 35.1 [facility] g/dL [facility] LABORATORY RDW-SD 42.3 39.0 - 49.9 fL [facility] RDW-CV 12.7 12.0 - 15.5 % [facility] PLT 558 (H) 166 - 358 [facility] 10*3/L [facility] LABORATORY MPV 8.7 (L) 9.5 - 12.9 fL [facility] NRBC/100 WBC 0.0 0.0 - 10.0 /100 [facility] WBCs [facility] LABORATORY NRBC x10^3 <0.01 10*3/L [facility] GRAN MAT (NEUT) % 71.7 % [facility] IMM GRAN % 3.30 % [facility] LYMPH % 18.4 % [facility] MONO % 5.2 % [facility] EOS % 1.1 % [facility] BASO % 0.3 % [facility] GRAN MAT x10^3(ANC) 12.80 (H) 1.88 - 7.09 [facility] 10*3/uL [facility]OS[facility]ITAL LAB[facility] IMM GRAN x10^3 0.59 (H) 0.00 - 0.06 [facility] 10*3/uL [facility] LYMPH x10^3 3.29 1.32 - 3.29 [facility] 10*3/uL [facility] MONO x10^3 0.93 (H) 0.33 - 0.92 [facility] 10*3/uL H[facility]ITAL [facility] EOS x10^3 0.20 0.03 - 0.39 [facility] 10*3/uL [facility]ITAL [facility] BASO x10^3 0.05 0.01 - 0.07 [facility] 10*3/uL [facility] Specimen Blood - VENOUS Performing Organization Address City/[facility] Phone Number [facility] CLIA: [id number], [address] CREATINE KINASE (04/25/2020 9:47 AM CDT) Pathologist Sig nature CK 77 33 - 194 U/L [facility] Specimen Blood - VENOUS Performing Organization Address [facility] Phone Number [facility] CLIA: [id number], [address] PHOSPHORUS (04/25/2020 9:47 AM CDT) Pathologist Sig nature PHOSPHORUS 3.3 2.5 - 5.0 mg/dL [facility] Specimen Blood - VENOUS Performing Organization Address [facility] [place] Phone Number [facility] CLIA: [id number], [address] [place] [address] MAGNESIUM (04/25/2020 9:47 AM CDT) Pathologist Sig nature MAGNESIUM 2.1 1.7 - 2.4 mg/dL [facility] Specimen Blood - VENOUS Performing Organization Address [facility] [place] Phone Number [facility] CLIA: [id number], [address] N-TERMINAL PRO-BNP (04/25/2020 9:47 AM CDT) Pathologist Sig nature NT-proBNP 108 <=125 pg/mL [facility] Specimen Blood - VENOUS Narrative Performed At Biotin has been reported to cause a negative [facility] bias, interpret results relative to patient's use of biotin. Performing Organization Address [facility] Phone Number [facility] CLIA: [id number], [address] URIC ACID (04/25/2020 9:47 AM CDT) Pathologist Sig nature URIC ACID 6.0 2.9 - 6.0 mg/dL [facility] Specimen Blood - VENOUS Performing Organization Address [facility] Phone Number [facility] CLIA: [id number], [address] [place], [place] [address] Lipase Serum (04/25/2020 9:47 AM CDT) Pathologist Sig nature LIPASE 63 0 - 220 U/L [facility] Specimen Blood - VENOUS Performing Organization Address [facility] [place] Phone Number [facility] CLIA: [id number], [address] Hepatic Function Panel (ALB, T.PRO, BILI T, BU/BC, ALT, AST, ALK PHOS) (04/25/2020 9:47 AM CDT) Pathologist Sig nature TOTAL BILI 0.2 0.1 - 1.1 mg/dL [facility] BILI UNCON 0.4 0.1 - 1.1 mg/dL [facility] BILI CONJ 0.0 0.0 - 0.3 mg/dL [facility] T PROTEIN 7.6 6.3 - 8.2 g/dL [facility] ALBUMIN 4.2 3.5 - 5.0 g/dL [facility] ALK PHOS 93 34 - 122 U/L [facility] ALTv 25 5 - 35 U/L [facility] AST(SGOT) 18 13 - 40 U/L [facility] Specimen Blood - VENOUS Performing Organization Address [facility] [place] Phone Number [facility] CLIA: [id number], [address] [address] 15 LABORATORY [facility] Basic Metabolic Panel (NA, K, CL, CO2, GLUCOSE, BUN, CREATININE, CA) (04/25/2020 9:47 AM CDT) NA 142 135 - 145 [facility] mmol/L [facility] LABORATORY K 4.3 3.5 - 5.0 [facility] mmol/L HOSPITAL LABORATORY CL 107 98 - 108 mmol/L [facility] CO2 TOTAL 27 23 - 31 mmol/L [facility] AGAP 8 2 - 16 [facility] BUN 34 (H) 7 - 23 mg/dL [facility] GLUCOSE 131 (H) 70 - 110 mg/dL [facility] CREATININE 1.43 (H) 0.50 - 1.04 [facility] mg/dL [facility] LABORATORY CALCIUM 9.7 8.6 - 10.6 [facility] mg/dL [facility] LABORATORY eGFR Calculation 37.1 mL/min/1.73m2 [facility] ([facility] LABORATORY Jordanian) eGFR Calculation 44.9 mL/min/1.73m2 [facility] () [facility]ORY Specimen Blood - VENOUS Narrative Performed At [facility] [place] [facility] Glomerular Filtration Rate (GFR) [facility] and Staging of Kidney Disease* + [...] abnormalities in imaging tests). Performing Organization Address [facility] Phone Number [facility] CLIA: [id number], [address] Lactic Acid Whole Blood (04/25/2020 9:44 AM CDT) [facility] LACTIC ACID 1.75 mmol/L [facility] Specimen Blood - VENOUS Performing Organization Address [facility]ode Phone Number [facility]: [id number], [address] [address] [address] [facility] [employer] documented in this encounter Visit Diagnoses Diagnosis Pyelonephritis - Primary Pyelonephritis, unspecified Periumbilical abdominal pain Abdominal pain, periumbilic Urinary tract infection without hematuri a, site unspecified Leukocytosis, unspecified type Acute renal failure, unspecified acute r enal failure type Coronary artery disease involving [place] coronary artery of [place] heart with angina pectoris Dyslipidemia Other and unspecified hyperlipidemia Essential hypertension Unspecified essential hypertension IDDM (insulin dependent diabetes mellitu s) Type II or unspecified type diabetes mercedes litus without mention of complication, not stated as uncontrolled Obesity (BMI 30-39.9) Obesity, unspecified documented in this encounter Administered Medications Medication Order MAR Action Action Date Dose Rate Site acetaminophen (TYLENOL) tablet Given 04/26/2020 9:53 PM CDT 650 mg 650 mg 650 mg, Oral, Q6HPRN, Starting 04/25/20 at 1505, Until Discontinued, Routine, Pain (scale 1-3) Given 04/26/2020 10:31 AM CDT 650 mg aspirin EC tablet 81 mg Given 04/27/2020 8:34 AM CDT 81 mg 81 mg, Oral, DAILY, First dose on Sun04/26/20 at 0900, Until Discontinued Given 04/26/2020 8:18 AM CDT 81 mg atorvastatin (LIPITOR) tablet 80 mg Given 04/26/2020 8:01 PM CDT 80 mg 80 mg, Oral, QHS, First dose on Sun04/26/20 at 2100, Until Discontinued, Routine carvediloL (COREG) tablet 12.5 mg Given 04/27/2020 8:34 AM CDT 12.5 mg 12.5 mg, Oral, BID MEALS, First dose on Sun04/26/20 at 0800, Until Discontinued, Routine Given 04/26/2020 4:14 PM CDT 12.5 mg Given 04/26/2020 8:18 AM CDT 12.5 mg clopidogreL (PLAVIX) tablet 75 mg Given 04/27/2020 8:34 AM CDT 75 mg 75 mg, Oral, DAILY, First dose on Sun04/26/20 at 0900, Until Discontinued, Routine Given 04/26/2020 8:18 AM CDT 75 mg enoxaparin (LOVENOX) injection 40 mg Given 04/27/2020 8:37 AM CDT 40 mg Abdo men-SC 40 mg, Subcutaneous, DAILY, First dose on Sun04/26/20 at 0900, Until Discontinued, Routine Given 04/26/2020 8:17 AM CDT 40 mg Abdo men-SC insulin glargine (LANTUS U-100) Given 04/27/2020 8:35 AM CDT 50 Units Abdomen-SC injection 100 Units 100 Units, Subcutaneous, DAILY, First dose on Sun04/26/20 at 0800, Until Discontinued, Routine Given 04/26/2020 8:17 AM CDT 100 Units Abdo men-SC lactobacillus acidophilus (ACIDOPHILLUS) Given 04/27/2020 8 :34 AM CDT 1 tablet 25 million cell -100 mg captab 1 tablet 1 tablet, Oral, BID, First dose on Sun04/26/20 at 0015, Until Discontinued, Routine Given 04/26/2020 8:01 PM CDT 1 tablet Given 04/26/2020 8:18 AM CDT 1 tablet omeprazole (PRILOSEC) capsule 20 mg Given 04/27/2020 8:34 AM CDT 20 mg 20 mg, Oral, DAILY, First dose on Sun04/26/20 at 1115, Until Discontinued, Routine Given 04/26/2020 12:45 PM CDT 20 mg ondansetron (ZOFRAN (PF)) injection 4 mg 4 mg, Slow IV Push, Q6HPRN, Starting 04/25/20 at 15 05, Until Discontinued, Routine, Nausea and Vomiting (N/V) piperacillin-tazobactam (ZOSYN) 3.375 g in Given 04/27 9:28 AM CDT 3.375 g NaCl 0.9% (NS) 100 mL MINI-BAG 3.375 g, IV Piggyback, Q6H ABX, First dose on Sun04/25/20 at 2200, Until Discontinued, 100 mL, Reason for Anti-Infective: Documented Infection, Documented Infection Site: Urine, Duration of Therapy: Other (see Comments) Given 04/27/2020 3:35 AM CDT 3.375 g Given 04/26/2020 9:33 PM CDT 3.375 g predniSONE (DELTASONE) tablet 20 mg Given 04/27/2020 8:34 AM CDT 20 mg 20 mg, Oral, DAILY, First dose on Sun04/27/20 at 0900, Until Discontinued, Routine SITagliptin (JANUVIA) tablet 100 mg Given 04/27/2020 8:34 AM CDT 100 mg 100 mg, Oral, DAILY, First dose on Sun04/26/20 at 1045, Until Discontinued, Routine Given 04/26/2020 10:53 AM CDT 100 mg Sliding Scale Insulin - Lispro Given 04/27/2020 11:04 AM CDT 4 U nits Abdomen-SC (HumaLOG) + Fsbg Testing Subcutaneous, TID MEALS+HS, First dose on Sun04/26/20 at 1700, Until Discontinued, Routine Given 04/27/2020 3:38 AM CDT 3 Units Abdo men-SC Given 04/26/2020 11:53 PM CDT 10 Units Righ t Upper Arm-SC Medication Order MAR Action Action Date Dose Rate Site atorvastatin (LIPITOR) tablet 40 Given 04/25/2020 9:02 PM CDT 4 0 mg mg 40 mg, Oral, QHS, First dose on Sun04/25/20 at 2100, Until Discontinued, Routine insulin glargine (LANTUS U-100) Given 04/26/2020 12:45 AM CDT 25 Units Abdomen-SC injection 25 Units 25 Units, Subcutaneous, ONCE, 1 dose, Sun04/26/20 at 0115, Routine iohexol (OMNIPAQUE 350 BULK-100 mL) Given 04/25/2020 11:17 AM CD T 105 mL injection 105 mL 105 mL, Intravenous, ONCE, 1 dose, Sun04/25/20 at 1130, Routine metFORMIN (GLUCOPHAGE) tablet 1,000 mg Given 04/26/2020 4:14 PM CDT 1,000 mg 1,000 mg, Oral, BID MEALS, First dose on Sun04/26/20 at 1045, Until Discontinued, Routine Given 04/26/2020 10:53 AM CDT 1,000 mg NaCl 0.9% (NS) IV infusion 1,000 New Bag 04/25/2020 3:42 PM C DT 1,000 mL 125 mL/hr mL at 125 mL/hr, IV Infusion, CONTINUOUS, Starting Sun04/25/20 at 1515, Until Sun04/25/20 at 1756, Routine NaCl 0.9% (NS) IV infusion 1,000 mL Rate Change 04/25/2020 6:26 PM CDT 75 mL/hr at 75 mL/hr, IV Infusion, CONTINUOUS, Starting Sun04/25/20 at 1800, Until Sun04/26/20 at 0015, Routine NaCl 0.9% (NS) IV infusion 1,000 New Bag 04/27/2020 9:26 AM C DT 1,000 mL 50 mL/hr mL at 50 mL/hr, IV Infusion, CONTINUOUS, Starting Sun04/26/20 at 0030, Until Sun04/27/20 at 0957, Routine New Bag 04/26/2020 7:51 AM CDT 1,000 mL 50 mL/hr Rate Change 04/26/2020 12:45 AM CDT 50 mL/hr piperacillin-tazobactam (ZOSYN) 3.375 g in Given 04/25 3:43 PM CDT 3.375 g NaCl 0.9% (NS) 100 mL MINI-BAG 3.375 g, IV Piggyback, ONCE, 1 dose, [place] 04/25/20 at 1330, 100 mL, Reason for Anti-Infective: Documented Infection, Documented Infection Site: Urine, Duration of Therapy: Other (see Comments) predniSONE (DELTASONE) tablet 40 mg Given 04/26/2020 8:18 AM CDT 40 mg 40 mg, Oral, DAILY, First dose on Sun04/26/20 at 0900, Until Discontinued, Routine Sliding Scale Insulin-Regular + Given 04/25/2020 9:09 PM 5 Unit s Right Upper Fsbg Testing CDT Arm-SC Subcutaneous, AC+HS, First dose on [place] 04/25/20 at 1630, Until Discontinued, Routine Sliding Scale Insulin-Regular + Given 04/26/2020 8:16 AM CDT 5 Units Abdomen-SC Fsbg Testing Subcutaneous, Q4H, First dose on Sun04/26/20 at 0745, Until Discontinued, Routine Sliding Scale Insulin-Regular + Given 04/26/2020 4:03 PM 10 Uni ts Abdomen-SC Fsbg Testing CDT Subcutaneous, Q4H, First dose on Sun04/26/20 at 1200, Until Discontinued, Routine Given 04/26/2020 10:48 AM CDT 10 Units Abdo men-SC sodium polystyrene sulfonate (KAYEXALATE) 15 Given 0 3:36 AM CDT 15 g gram/60 mL suspension 15 g 15 g, Oral, ONCE, 1 dose, [facility] 04/27/20 at 0045, Routine documented in this encounter Additional Health Concerns Infection Onset Date Last Indicated Resolved Time COVID-19 Rule Out 04/25/2020 04/25/2020 04/25/2020 1: 41 PM CDT documented as of this encounter Insurance Payer Benefit Plan / Subscriber ID Effective Phone Address T ype Group Dates [facility] [id number] 2018-[facility] [employer] - HEALTHCARE ent Adv HM O MANAGED DUAL COMPLETE MEDICARE HMO [place] MEDICAID OF xxxxxxxxx 2019-Pre [phone] [address] Medi ca[place] sent [phone] [id number] [place] [address] documented as of this encounter
--- OUTSIDE RECORDS SUMMARY | 2020-05-21 08:15 | XMS REPORT | Summary of Care ---
:1955 Author Organization [facility] Address [address] [place] [address] Care Team Providers Name Role Phone [place] lester Primary Care Provider Reason for Visit Reason Comments Transition Of Care Encounter Details Date Type Department Care Team Description 04/28/2020 Transition of Care [facility] [place] Transition Of Care [facility] RN [phone] Allergies Active Allergy Reactions Severity Noted Date Comments Meperidine Hcl Hives 08/08/2015 documented as of this encounter (statuses as of 04/28/2020) Medications Medication Sig Dispensed Refills Start Date [...] 30 tablet 2 12/07 Active tabletIndications: Chest mouth daily. pain, unspecified type nitroglycerin 0.[address] [...] 04/21/2019 Active tabletIndications: mouth every 6 Symptomatic cholelithiasis (six) hours as needed for Pain (scale 1-3) or Pain (scale 4-6). acetaminophen (TYLENOL) 325 Take 2 tablets by 30 tablet 0 04/07 Active mg tabletIndications: mouth every 6 Symptomatic cholelithiasis (six) hours. atorvastatin 40 mg Take 1 tablet by 90 tablet 3 06/04/2019 Active tabletIndications: Coronary mouth at bedtime. artery disease involving nulato coronary artery of nulato heart without angina pectoris, Obesity (BMI 30-39.9), Essential hypertension, IDDM (insulin dependent diabetes mellitus), Dyslipidemia, DAHL (dyspnea on exertion), Atypical chest pain clopidogrel 75 mg Take 1 tablet by 90 tablet 3 06/04/2019 Active tabletIndications: Coronary mouth daily. artery disease involving nulato coronary artery of nul[place] heart without angina pectoris, Obesity (BMI 30-39.9), Essential hypertension, IDDM (insulin dependent diabetes mellitus), Dyslipidemia, DAHL (dyspnea on exertion), Atypical chest pain carvedilol 25 mg Take 1 tablet by 180 tablet 3 06/04/2019 Active tabletIndications: Coronary mouth 2 (two) artery disease involving times daily with nulato coronary artery of meals. nulato heart without angina pectoris, Obesity (BMI 30-39.9), [...] every 6 concussion syndrome (six) hours. spironolactone (ALDACTONE) Take 1 tablet by 90 tablet 3 2019 Active 25 mg tabletIndications: mouth daily. Coronary artery disease involving nulato coronary artery of nulato heart without angina pectoris, Obesity (BMI 30-39.9) BABY ASPIRIN ORAL Take 1 tablet by 0 Active mouth daily. acetaminophen-codeine Take 1 tablet by 20 tablet 0 04/17/2020 Active (TYLENOL-CODEINE #3) 300-30 mouth every 6 mg tabletIndications: acute (six) hours as pain needed for Pain (scale 7-10). Indications: acute pain esomeprazole 40 mg capsule 0 01/28/2020 Active predniSONE 20 mg 2 tabs po daily 60 tablet 3 04/23/2020 Active tabletIndications: GCA (giant cell arteritis) lactobacillus acidophilus 25 Take 1 tablet by 60 tablet 0 04/08 Active million cell -100 mg mouth 2 (two) captabIndications: Acute times daily. renal failure, unspecified acute renal failure type ciprofloxacin HCl 250 mg Take 1 tablet by 20 tablet 0 04/27/20 20 Active tabletIndications: Acute mouth 2 (two) 0 renal failure, unspecified times daily for acute renal failure type 10 days. documented as of this encounter (statuses as of 04/28/2020) Active Problems Problem Noted Date Pyelonephritis 04/25/2020 GCA (giant cell arteritis) 04/15/2020 Overview: Added automatically from request for romy tamera [id number] Symptomatic cholelithiasis 03/21/2019 Overview: Added automatically from request for romy tamera [id number] IDDM (insulin dependent diabetes mellitus) 10/01/2018 Chest pain 09/04/2018 Coronary artery disease involving nulato coronary nahun ry of nulato heart 09/04/2018 with angina pectoris Abnormal serum level of lipase 09/04/2018 Calculus of gallbladder without cholecystitis without obstruction 09/04/2018 Liver lesion 09/04/2018 Abnormal nuclear stress test 08/10/2018 Essential hypertension 08/08/2018 Dyslipidemia 08/08/2018 Atypical chest pain 08/07/2018 Obesity (BMI 30-39.9) 03/27/2017 documented as of this encounter (statuses as of 04/28/2020) Immunizations Name Administration Dates Next Due Influenza [...] cell [address] arteritis) [place] [id number] 05/26/2020 Anesthesia Event Surgery Robbie Crabtree MD [address] [place] [address] 05/26/2020 Surgery Surgery Vinod Flores M D TEMPORAL ARTERY BIOPSY [address] [place], [place] [address] 06/10/2020 Office Visit Cardiology Zeny Norris MD [address] [place] [phone] Health Maintenance Due Date Last Done [...] 04/15/2020 LDL-C 04/17/2021 04/17/2020, 08/07/2018 CREATININE (SERUM) 04/27/2021 04/27/2020, 04/26/2020, 04/25/2020, Additional history exists PNEUMOCOCCAL 0-64 YEARS COMBINED Completed 09/04/2018 SERIES documented as of this encounter Implants Implanted Type Area Head Of Design Device Identifier Shelf Exp iration Model / Serial Date / Lot Stent STENT documented as of this encounter Results Not on filedocumented in this encounter Insurance Payer Benefit Plan / Subscriber ID Effective Phone Address T e Group Dates [facility] [id number] 2018-Pres Medica re HEALTHCARE - HEALTHCARE ent Adv HM O MANAGED DUAL COMPLETE MEDICARE HMO TMHP MEDICAID OF xxxxxxxxx 2019-Pre [phone] [address] Medi caid [place] sent [id number] [place] [address] documented as of this encounter
--- OUTSIDE RECORDS SUMMARY | 2020-05-21 08:15 | XMS REPORT | Summary of Care ---
:1955 Author Organization [facility] Address [address] [place] [address] Care Team Providers Name Role Phone [place]ish lester Primary Care Provider Reason for Visit Reason Comments Transition Of Care Encounter Details Date Type Department Care Team Description 04/28/2020 Transition of Care [facility] [place] Transition Of Care [facility] RN [phone] Allergies Active Allergy Reactions Severity Noted Date [...] Coronary mouth at bedtime. artery disease involving [place] coronary artery of [place] heart without angina pectoris, Obesity (BMI 30-39.9), Essential hypertension, IDDM (insulin dependent diabetes mellitus), Dyslipidemia, DAHL (dyspnea on exertion), Atypical chest pain clopidogrel 75 mg Take 1 tablet by 90 tablet 3 06/04/2019 Active tabletIndications: Coronary mouth daily. artery disease involving [place] coronary artery of [place] heart without angina pectoris, Obesity (BMI 30-39.9), Essential hypertension, IDDM (insulin dependent diabetes mellitus), Dyslipidemia, DAHL (dyspnea on exertion), Atypical chest pain carvedilol 25 mg Take 1 tablet by 180 tablet 3 06/04/2019 Active tabletIndications: Coronary mouth 2 (two) artery disease involving times daily with [place] coronary artery of meals. [place] heart without angina pectoris, Obesity (BMI 30-39.9), [...] tabletIndications: mouth daily. Coronary artery disease involving [place] coronary artery of [place] heart without angina pectoris, Obesity (BMI 30-39.9) [...] Added automatically from request for romy tamera [id number] Symptomatic cholelithiasis 03/21/2019 Overview: Added automatically from request for romy tamera [id number] IDDM (insulin dependent diabetes mellitus) 10/01/2018 Chest pain 09/04/2018 Coronary artery disease involving [place] coronary nahun ry of [place] heart 09/04/2018 with angina pectoris Abnormal serum [...] [address] arteritis) [place] [address] 05/26/2020 Anesthesia Event Surgery Robbie Crabtree MD [address] [place] [address] 05/26/2020 Surgery Surgery Viond Flores M D TEMPORAL ARTERY BIOPSY [address] [place], [place] [address] 06/10/2020 Office Visit Cardiology Zeny Norris MD [address] [place] [phone] Health Maintenance Due Date Last Done [...] of this encounter Implants Implanted Type Area Director Hospice Operations Device Identifier Shelf Exp iration Model / Serial Date / Lot Stent STENT documented as of this encounter Results Not on filedocumented in this encounter Insurance Payer Benefit Plan / Subscriber ID Effective Phone Address T e Group Dates [facility] [id number] 2018-Pres Medica re HEALTHCARE - HEALTHCARE ent Adv HM O MANAGED DUAL COMPLETE MEDICARE HMO TMHP MEDICAID OF xxxxxxxxx 2019-Pre [phone] [address] Medi caid [place] sent [id number] [place] [address] documented as of this encounter
--- OUTSIDE RECORDS SUMMARY | 2020-05-21 08:15 | XMS REPORT | Summary of Care ---
:1955 Author Organization [facility] Address [address] [place] [address] Care Team Providers Name Role Phone Trish López Primary Care Provider Reason for Visit Reason Comments Refill Request Encounter Details Date Type Department Care Team Description 04/29/2020 Refill [facility] Cardiology- Zeny Norris MD Refill Request [place] [address] [facility], [address] [facility] [[email or web address] [address] [place] [address] [place] [phone] Allergies Active Allergy Reactions Severity Noted Date Comments Meperidine Hcl Hives 08/08/2015 documented as of this encounter (statuses as of 04/29/2020) Medications Medication Sig Dispensed Refills Start Date [...] AM sitaGLIPtin (JANUVIA) 100 Take 1 tablet 30 tablet 2 12/26/2018 Active mg tabletIndications: by mouth daily. Chest pain, unspecified type nitroglycerin [...] 04/21/2019 Active tabletIndications: by mouth every Symptomatic cholelithiasis 6 (six) hours as needed for Pain (scale 1-3) or Pain (scale 4-6). acetaminophen (TYLENOL) Take 2 tablets 30 tablet 0 04/21/2019 Active 325 mg tabletIndications: by mouth every Symptomatic cholelithiasis 6 (six) hours. atorvastatin 40 mg Take 1 tablet 90 tablet 3 06/04/2019 Active tabletIndications: by mouth at Coronary artery disease bedtime. involving agdaagux coronary artery of agdaagux heart without angina pectoris, Obesity (BMI 30-39.9), Essential hypertension, IDDM (insulin dependent diabetes mellitus), Dyslipidemia, DAHL (dyspnea on exertion), Atypical chest pain clopidogrel 75 mg Take 1 tablet 90 tablet 3 06/04/2019 Active tabletIndications: by mouth daily. Coronary artery disease involving agdaagux coronary artery of agdaagux heart without angina pectoris, Obesity (BMI 30-39.9), Essential hypertension, IDDM (insulin dependent diabetes mellitus), Dyslipidemia, DAHL (dyspnea on exertion), Atypical chest pain carvedilol 25 mg Take 1 tablet 180 tablet 3 06/04/2019 Active tabletIndications: by mouth 2 Coronary artery disease (two) times involving agdaagux coronary daily with artery of agdaagux heart meals. without angina pectoris, Obesity (BMI [...] mouth every concussion syndrome 6 (six) hours. BABY ASPIRIN ORAL Take 1 tablet 0 Active by mouth daily. acetaminophen-codeine Take 1 tablet 20 tablet 0 04/17/2020 Active (TYLENOL-CODEINE #3) by mouth every 300-30 mg 6 (six) hours tabletIndications: acute as needed for pain Pain (scale 7-10). Indications: acute pain esomeprazole 40 mg capsule 0 01/28/2020 Active predniSONE 20 mg 2 tabs po daily 60 tablet 3 04/23/2020 Active tabletIndications: GCA (giant cell arteritis) lactobacillus acidophilus Take 1 tablet 60 tablet 0 04/27/2020 Active 25 million cell -100 mg by mouth 2 captabIndications: Acute (two) times renal failure, unspecified daily. acute renal failure type ciprofloxacin HCl 250 mg Take 1 tablet 20 tablet 0 04/27/2020 Active tabletIndications: Acute by mouth 2 020 renal failure, unspecified (two) times acute renal failure type daily for 10 days. SPIRONOLACTONE 25 mg TAKE 1 TABLET 30 tablet 5 04/29/2020 Active tabletIndications: BY MOUTH ONCE Coronary artery disease DAILY involving agdaagux coronary artery of agdaagux heart without angina pectoris, Obesity (BMI 30-39.9) spironolactone (ALDACTONE) Take 1 tablet 90 tablet 3 0 Discontinued 25 mg tabletIndications: by mouth daily. 020 Coronary artery disease involving agdaagux coronary artery of agdaagux heart without angina pectoris, Obesity (BMI 30-39.9) documented as of this encounter (statuses as of 04/29/2020) Active Problems Problem Noted Date Pyelonephritis 04/25/2020 GCA (giant cell arteritis) 04/15/2020 Overview: Added automatically from request for romy philip [id number] Symptomatic cholelithiasis 03/21/2019 Overview: Added automatically from request for romy philip [id number] IDDM (insulin dependent diabetes mellitus) 10/01/2018 Chest pain 09/04/2018 Coronary artery disease involving agdaagux coronary nahun ry of agdaagux heart 09/04/2018 with angina pectoris Abnormal serum level of lipase 09/04/2018 Calculus of gallbladder without cholecystitis without obstruction 09/04/2018 Liver lesion 09/04/2018 Abnormal nuclear stress test 08/10/2018 Essential hypertension 08/08/2018 Dyslipidemia 08/08/2018 Atypical chest pain 08/07/2018 Obesity (BMI 30-39.9) 03/27/2017 documented as of this encounter (statuses as of 04/29/2020) Immunizations Name Administration Dates Next Due Influenza [...] cell [address] arteritis) [place], [place] [address] 05/26/2020 Anesthesia Event Surgery Robbie Crabtree MD [address] [place] [phone] 05/26/2020 Surgery Surgery Vinod Flores M D TEMPORAL ARTERY BIOPSY [address] [place], [place] [address] 06/10/2020 Office Visit Cardiology Zeny Norris MD [address] [place] [phone] Health Maintenance Due Date Last Done [...] of this encounter Implants Implanted Type Area Frame Builder Device Identifier Shelf Exp iration Model / Serial Date / Lot Stent STENT documented as of this encounter Results Not on filedocumented in this encounter Visit Diagnoses Diagnosis Coronary artery disease involving agdaagux coronary artery of agdaagux heart without angina pectoris Obesity (BMI 30-39.9) Obesity, unspecified documented in this encounter Insurance Payer Benefit Plan / Subscriber ID Effective Phone Address T ype Group Dates [facility] [id number] 2018-Pres Medica [facility] - HEALTHCARE ent Adv HM O MANAGED DUAL COMPLETE MEDICARE HMO [facility] MEDICAID OF xxxxxxxxx 2019-Pre [phone] [address] Medi caid [place] sent [id number] [place] [address] documented as of this encounter
--- OUTSIDE RECORDS SUMMARY | 2020-05-21 08:16 | XMS REPORT | Summary of Care ---
:1955 Author Organization [facility] Address [address] [place] [address] Care Team Providers Name Role Phone Trish Lóepz Primary Care Provider Encounter Details Date Type Department Care Team Description 04/19/2020 Orders Only [facility] Doctor Unassigned, No [address] [facility] [place] [address] [address] [place] [id number] Allergies Active Allergy Reactions Severity Noted Date Comments Meperidine Hcl Hives 08/08/2015 documented as of this encounter (statuses as of 04/30/2020) Medications Medication Sig Dispensed Refills Start Date [...] Symptomatic mouth every 6 (six) cholelithiasis hours. atorvastatin 40 mg Take 1 tablet by 90 tablet 3 06/04/2019 Active tabletIndications: Coronary mouth at bedtime. artery disease involving [place] shosh[place] coronary artery of timbi[place] shosh[place] heart without angina pectoris, Obesity (BMI 30-39.9), Essential hypertension, IDDM (insulin dependent diabetes mellitus), Dyslipidemia, DAHL (dyspnea on exertion), Atypical chest pain clopidogrel 75 mg Take 1 tablet by 90 tablet 3 06/04/2019 Active tabletIndications: Coronary mouth daily. artery disease involving [place]osh[place] coronary artery of [place] shosh[place] heart without angina pectoris, Obesity (BMI 30-39.9), Essential hypertension, IDDM (insulin dependent diabetes mellitus), Dyslipidemia, DAHL (dyspnea on exertion), Atypical chest pain carvedilol 25 mg Take 1 tablet by 180 tablet 3 06/04/2019 Active tabletIndications: Coronary mouth 2 (two) times artery disease involving timbi[place] shoshone daily with meals. coronary artery of timbi-sha shoshone heart without [...] mouth every 6 (six) concussion syndrome hours. BABY ASPIRIN ORAL Take 1 tablet by 0 Active mouth daily. acetaminophen-codeine Take 1 tablet by 20 tablet 0 04/17/2020 Active (TYLENOL-CODEINE #3) 300-30 mg mouth every 6 (six) tabletIndications: acute pain hours as needed for Pain (scale 7-10). Indications: acute pain esomeprazole 40 mg capsule 0 01/28/2020 Active documented as of this encounter (statuses as of 04/30/2020) Active Problems Problem Noted Date Pyelonephritis 04/25/2020 GCA (giant cell arteritis) 04/15/2020 Overview: Added automatically from request for romy tamera [id number] Symptomatic cholelithiasis 03/21/2019 Overview: Added automatically from request for romy tamera [id number] IDDM (insulin dependent diabetes mellitus) 10/01/2018 Chest [...] as of this encounter (statuses as of 04/30/2020) Immunizations Name Administration Dates Next Due Influenza [...] cell [address] arteritis) [place], [place] [address] 05/26/2020 Anesthesia Event Surgery Robbie Crabtree MD [address] [place] [address] 05/26/2020 Surgery Surgery Vinod Flores M D TEMPORAL ARTERY BIOPSY [address] [place], [place] [address] 06/10/2020 Office Visit Cardiology Zeny Norris MD [address] [place] [phone] Health Maintenance Due Date Last Done [...] of this encounter Implants Implanted Type Area Anode Adjuster Device Identifier Shelf Exp iration Model / Serial Date / Lot Stent STENT documented as of this encounter Procedures Procedure Name Priority Date/Time Associated Diagnosis Comme nts REFERRAL- Routine 04/19/2020 12:01 AM CDT REQUEST/RESPONSE documented in this encounter Results Not on filedocumented in this encounter Additional Health Concerns Infection Onset Date Last Indicated Resolved Time COVID-19 Rule Out 04/25/2020 04/25/2020 04/25/2020 1: 41 PM CDT documented as of this encounter Insurance Payer Benefit Plan / Subscriber ID Effective Phone Address T ype Group Dates [facility] [id number] 2018-Pres Medica re HEALTHCARE - HEALTHCARE ent Adv HM O MANAGED DUAL COMPLETE MEDICARE HMO TMHP MEDICAID OF xxxxxxxxx 2019-Pre [phone] [address] Medi caid [place] sent [phone] [place] [address] documented as of this encounter
--- OUTSIDE RECORDS SUMMARY | 2020-05-21 08:16 | XMS REPORT | Summary of Care ---
:1955 Author Organization [facility] Address [address] [place] [address] Care Team Providers Name Role Phone [place] lester Primary Care Provider Reason for Visit Reason Comments Transition Of Care Encounter Details Date Type Department Care Team Description 04/29/2020 Transition of Care [facility] [place] Long[place] Transition Of Care [facility] RN [phone] Allergies Active Allergy Reactions Severity Noted Date [...] Coronary mouth at bedtime. artery disease involving false pass coronary artery of false pass heart without angina pectoris, Obesity (BMI 30-39.9), Essential hypertension, IDDM (insulin dependent diabetes mellitus), Dyslipidemia, DAHL (dyspnea on exertion), Atypical chest pain clopidogrel 75 mg Take 1 tablet by 90 tablet 3 06/04/2019 Active tabletIndications: Coronary mouth daily. artery disease involving [place] coronary artery of false [place] heart without angina pectoris, Obesity (BMI 30-39.9), Essential hypertension, IDDM (insulin dependent diabetes mellitus), Dyslipidemia, DAHL (dyspnea on exertion), Atypical chest pain carvedilol 25 mg Take 1 tablet by 180 tablet 3 06/04/2019 Active tabletIndications: Coronary mouth 2 (two) artery disease involving times daily with false pass coronary artery of meals. false pass heart without angina pectoris, Obesity (BMI 30-39.9), [...] mouth every 6 concussion syndrome (six) hours. BABY ASPIRIN ORAL Take 1 [...] for acute renal failure type 10 days. SPIRONOLACTONE 25 mg TAKE 1 TABLET BY 30 tablet 5 04/29/2020 Active tabletIndications: Coronary MOUTH ONCE DAILY artery disease involving false [place] coronary artery of false pass heart without angina pectoris, Obesity (BMI 30-39.9) documented as of this encounter (statuses as of 04/29/2020) Active Problems Problem Noted Date Pyelonephritis 04/25/2020 GCA (giant cell arteritis) 04/15/2020 Overview: Added automatically from request for romy tamera [id number] Symptomatic cholelithiasis 03/21/2019 Overview: Added automatically from request for romy tamera [id number] IDDM (insulin dependent diabetes mellitus) 10/01/2018 Chest pain 09/04/2018 Coronary artery disease involving false pass coronary nahun ry of false pass heart 09/04/2018 with angina pectoris Abnormal serum [...] cell [address] arteritis) [place] [address] 05/26/2020 Anesthesia Event Surgery Robbie Crabtree MD [address] [place] [address] 05/26/2020 Surgery Surgery Vinod Flores M D TEMPORAL ARTERY BIOPSY [address] [place], [place] [address] 06/10/2020 Office Visit Cardiology Zeny Norris MD [address] [place] [phone] Health Maintenance Due Date Last Done [...] of this encounter Implants Implanted Type Area Program Support Specialist Device Identifier Shelf Exp iration Model / Serial Date / Lot Stent STENT documented as of this encounter Results Not on filedocumented in this encounter Insurance Payer Benefit Plan / Subscriber ID Effective Phone Address T e Group Dates [facility] [id number] 2018-Pres Medica re HEALTHCARE - HEALTHCARE ent Adv HM O MANAGED DUAL COMPLETE MEDICARE HMO [facility] MEDICAID OF xxxxxxxxx 2019-Pre [phone] [address] [facility] sent [phone] [place] [address] documented as of this encounter
--- OUTSIDE RECORDS SUMMARY | 2020-05-21 08:17 | XMS REPORT | Summary of Care ---
:1955 Author Organization [facility] Address [address] [place] [address] Care Team Providers Name Role Phone Trish López Primary Care Provider Reason for Visit Reason Comments Rx Concern/Question Encounter Details Date Type Department Care Team Description 05/11/2020 Telephone [facility] Eye Vinod Flores M D Rx Concern/Question [address] [id number] [address] [facility] [place] [address] [place], [place] [phone] Allergies Active Allergy Reactions Severity Noted Date Comments Meperidine Hcl Hives 08/08/2015 documented as of this encounter (statuses as of 05/11/2020) Medications Medication Sig Dispensed Refills Start Date [...] daily Hyperglycemia before breakfast and dinner. Additional Information Patient taking differently: 10 Units Subcutaneous TIDAC, [...] Coronary mouth at bedtime. artery disease involving [place] coronary artery of [place] heart without angina pectoris, Obesity (BMI 30-39.9), Essential hypertension, IDDM (insulin dependent diabetes mellitus), Dyslipidemia, DAHL (dyspnea on exertion), Atypical chest pain clopidogrel 75 mg Take 1 tablet by 90 tablet 3 06/04/2019 Active tabletIndications: Coronary mouth daily. artery disease involving [place] coronary artery of [place] heart without angina pectoris, Obesity (BMI 30-39.9), Essential hypertension, IDDM (insulin dependent diabetes mellitus), Dyslipidemia, DAHL (dyspnea on exertion), Atypical chest pain carvedilol 25 mg Take 1 tablet by 180 tablet 3 06/04/2019 Active tabletIndications: Coronary mouth 2 (two) times artery disease involving [place] daily with meals. coronary artery of [place] heart without angina pectoris, Obesity (BMI 30-39.9), [...] million cell -100 mg mouth 2 (two) times captabIndications: Acute renal daily. failure, unspecified acute renal failure type SPIRONOLACTONE 25 mg TAKE 1 TABLET BY 30 tablet 5 04/29/2020 Active tabletIndications: Coronary MOUTH ONCE DAILY artery disease involving [place] coronary artery of [place] heart without angina pectoris, Obesity (BMI 30-39.9) documented as of this encounter (statuses as of 05/11/2020) Active Problems Problem Noted Date Pyelonephritis 04/25/2020 GCA (giant cell arteritis) 04/15/2020 Overview: Added automatically from request for romy tamera [id number] Symptomatic cholelithiasis 03/21/2019 Overview: Added automatically from request for romy tamera [id number] IDDM (insulin dependent diabetes mellitus) 10/01/2018 Chest pain 09/04/2018 Coronary artery disease involving [place] coronary nahun ry of [place] heart 09/04/2018 with angina pectoris Abnormal serum level of lipase 09/04/2018 Calculus of gallbladder without cholecystitis without obstruction 09/04/2018 Liver lesion 09/04/2018 Abnormal nuclear stress test 08/10/2018 Essential hypertension 08/08/2018 Dyslipidemia 08/08/2018 Atypical chest pain 08/07/2018 Obesity (BMI 30-39.9) 03/27/2017 documented as of this encounter (statuses as of 05/11/2020) Immunizations Name Administration Dates Next Due Influenza [...] Assigned at Date Recorded Not on file COVID-19 Exposure Response Date Recorded In the last month, have you been in contact with No / Unsure 04/25/2020 3:29 PM CDT someone who was confirmed or suspected to have Coronavirus / COVID-19? documented as of this encounter Last Filed Vital Signs Not on filedocumented in this encounter Miscellaneous Notes Telephone Encounter - Makeda Cuenca - 05/11/2020 4:40 PM CDTReports swelling and tightness in both legs - that started 2 days ago. Advised patient to go to the ER - that is a very serious reaction. Pt verbalizes understanding and states that she will have her son drive her, once he gets home. Makeda Cuenca 05/11/2020 4:42 PM Telephone Encounter - Makeda Cuenca - 05/11/2020 4:23 PM CDTLVM asking patient to call back with more information regarding the "bad reaction." Routing to Dr. Flores to advise on alternate. Makeda Cuenca 05/11/2020 4:25 PM Telephone Encounter - Erika Hendrickson - 05/11/2020 2:51 PM CDTPatient called stating that she is having a bad reaction to her Prednisone that Dr. Flores prescribed and it asking for a drug change [facility] [address] [place] [id number] documented in this encounter Plan of Treatment Date Type Specialty Care Team Description 05/26/2020 Hospital Encounter Surgery Vinod Flores MD GCA (giant cell [address] arteritis) [id number] [place] [id number] 05/26/2020 Anesthesia Event Surgery Robbie Crabtree MD [address] [place] [phone] 05/26/2020 Surgery Surgery Vinod Flores M D TEMPORAL ARTERY [id number] [place] [address] 06/10/2020 Office Visit Cardiology Zeny Norris MD [address] [phone] 07/28/2020 Office Visit Endocrinology Yina Carednas MD Diabetes & Metabolism [facility] [place] [address] [phone] Health Maintenance Due Date Last Done Comments HEPATITIS C (HCV) SCREEN 1955 URINE MICROALBUMIN 1966 FOOT EXAM 1974 DTaP,Tdap,and Td Vaccines (1 - 1975 Tdap) COLON CANCER SCREENING ANNUAL 2006 FIT/FOBT COLON CANCER SCREENING FIT DNA 2006 EVERY 3 YEARS COLON CANCER SCREENING 2006 SIGMOIDOSCOPY EVERY 5 YEARS COLONOSCOPY 2006 Colorectal Cancer Screening 2006 Zoster Recombinant Vaccine 2006 (SHINGRIX) (1 [...] this encounter Implants Implanted Type Area Manager Pipeline Device Identifier Shelf Exp iration Model / Serial Date / Lot Stent STENT documented as of this encounter Results Not on filedocumented in this encounter Insurance Payer Benefit Plan / Subscriber ID Effective Phone Address T ype Group Dates [facility] [id number] 2018-Pres Medica re HEALTHCARE - HEALTHCARE ent Adv HM O MANAGED DUAL COMPLETE MEDICARE HMO [employer] MEDICAID OF [id number] 2019-Pre [phone] Med[place] caid [place] sent [phone] [place] [address] documented as of this encounter
--- OUTSIDE RECORDS SUMMARY | 2020-05-21 08:17 | XMS REPORT | Summary of Care ---
:1955 Author Organization [facility] Address [address] [place] [address] Care Team Providers Name Role Phone Trish López Primary Care Provider Reason for Visit Reason Comments Blood Pressure Encounter Details Date Type Department Care Team Description 05/12/2020 Telephone [facility] Cardiology- Zeny Norris MD Blood Pressure [place] [address] [address] [address] [place] [address] [place] [address] [phone] Allergies Active Allergy Reactions Severity Noted Date Comments Meperidine Hcl Hives 08/08/2015 documented as of this encounter (statuses as of 05/12/2020) Medications Medication Sig Dispensed Refills Start Date [...] Coronary mouth at bedtime. artery disease involving [place] coronary artery of [place] heart without angina pectoris, Obesity (BMI 30-39.9), Essential hypertension, IDDM (insulin dependent diabetes mellitus), Dyslipidemia, DAHL (dyspnea on exertion), Atypical chest pain clopidogrel 75 mg Take 1 tablet by 90 tablet 3 06/04/2019 Active tabletIndications: Coronary mouth daily. artery disease involving [place] coronary artery of [place] heart without angina pectoris, Obesity (BMI 30-39.9), Essential hypertension, IDDM (insulin dependent diabetes mellitus), Dyslipidemia, DAHL (dyspnea on exertion), Atypical chest pain carvedilol 25 mg Take 1 tablet by 180 tablet 3 06/04/2019 Active tabletIndications: Coronary mouth 2 (two) times artery disease involving [place] daily with meals. coronary artery of [place] heart without angina pectoris, Obesity (BMI 30-39.9), [...] Coronary MOUTH ONCE DAILY artery disease involving [place] coronary artery of [place] heart without angina pectoris, Obesity (BMI 30-39.9) documented as of this encounter (statuses as of 05/12/2020) Active Problems Problem Noted Date Pyelonephritis 04/25/2020 GCA (giant cell arteritis) 04/15/2020 Overview: Added automatically from request for romy tamera [id number] Symptomatic cholelithiasis 03/21/2019 Overview: Added automatically from request for romy tamera [id number] IDDM (insulin dependent diabetes mellitus) 10/01/2018 Chest pain 09/04/2018 Coronary artery disease involving [place] coronary nahun ry of [place] heart 09/04/2018 with angina pectoris Abnormal serum level of lipase 09/04/2018 Calculus of gallbladder without cholecystitis without obstruction 09/04/2018 Liver lesion 09/04/2018 Abnormal nuclear stress test 08/10/2018 Essential hypertension 08/08/2018 Dyslipidemia 08/08/2018 Atypical chest pain 08/07/2018 Obesity (BMI 30-39.9) 03/27/2017 documented as of this encounter (statuses as of 05/12/2020) Immunizations Name Administration Dates Next Due Influenza [...] this encounter Miscellaneous Notes Telephone Encounter - Telly Dewey MA - 05/12/2020 2:08 PM CDTLeft detailed msg on vm with Dr. Norris's previous encounter message. To monitor BP and bring log in2 weeks. Call back PRN. elephone Encounter - Telly Dewey MA - 05/12/2020 2:07 PM CDT----- Message from Zeny Norris MD sent at 05/11/2020 1:23 AM CDT ----- Regarding: RE: Had a One Time Small Chest Pain Contact: Thanks for the update. Please ask her to monitor her BP and HR 2-3 hrs after her current HTN meds for 2 weeks and sent it to us for review. She was admitted with urosepsis and hence her BP were low. It should get better so that we can restart her usual meds. With regards Dr Norris ----- Message ----- From: Azalia Longoria RN Sent: 04/29/2020 12:20 PM CDT To: Zeny Norris MD, # Subject: Had a One Time Small Chest Pain Ms. Nolen discharged from the hospital on 04/27/2020. I spoke with her yesterday and went over all cardiac medication because there was some confusion at time of discharge. MD Knutson was able to confirm with me that he asked her to stop isosorbide, losartan, and amlodipine and to continue coreg at25. I received a call from Ms. Nolen that she had an episode that she felt a twinge of chest pain and took a nitro glycerine pill and it went away. She checked her blood pressure before and after taking her Coreg and nitroglycerin: Before: 129/86 with 86 pulse After: 110/79 with 79 pulse Her follow-up appointment with you is 06/10/2020. I wasn't sure if she was having any chest pain since they stopped the isosorbide. I offered to message you to make aware. Thank you for any assistance you can give. Azalia Longoria RN, [facility] Outpatient Care Management [facility] [phone] documented in this encounter Plan of Treatment Date Type Specialty Care Team Description 05/26/2020 Hospital Encounter Surgery Vinod Flores MD GCA (giant cell [address] arteritis) [id number] [place] [address] [phone] 05/26/2020 Anesthesia Event Surgery Robbie Crabtree MD [address] [place] [phone] 05/26/2020 Surgery Surgery Vinod Flores M D TEMPORAL ARTERY [address] [facility] BIOPSY [id number] [place], [place] [address] 06/10/2020 Office Visit Cardiology Zeny Norris MD [address] [place] [address] [place] [phone] 07/28/2020 Office Visit Endocrinology Yina Cardenas MD Diabetes & Metabolism [address] [place] [address] [phone] Health Maintenance Due Date Last Done Comments [...] of this encounter Implants Implanted Type Area Senior Materials Scientist Device Identifier Shelf Exp iration Model / Serial Date / Lot Stent STENT documented as of this encounter Results Not on filedocumented in this encounter Insurance Payer Benefit Plan / Subscriber ID Effective Phone Address T e Group Dates [facility] [id number] 2018-Pres Medica HEALTHCARE - HEALTHCARE ent Adv HM O MANAGED DUAL COMPLETE MEDICARE HMO [facility] MED[place] OF [id number] 2019-Pre [phone] [address] Med[place] caid [place] sent [phone] [place] [address] documented as of this encounter
--- OUTSIDE RECORDS SUMMARY | 2020-05-21 08:18 | XMS REPORT | Summary of Care ---
:1955 Author Organization [facility] - [facility] Address [address] [place] [address] Care Team Providers Name Role Phone Trish López Primary Care Provider Reason for Visit Reason Comments Abscess vaginal area Auth/Cert Status Reason Specialty Diagnoses / Referred By Referred To Procedures Contact Contact Emergency Medicine Ad[facility] Em ergency Dept [address] [place] [address] Fax: Encounter Details Date Type Department Care Team Description 05/15/2020 Emergency ADC-Emergency Lindsay Silverio, PAC Abscess of right thigh Department [address] [facility] [address] (Primary Dx) [address] [place], [place] [address] [address] [address] [phone] [place] [id number] [phone] Allergies Active Allergy Reactions Severity Noted Date Comments Meperidine Hcl Hives 08/08/2015 documented as of this encounter (statuses as of 05/15/2020) Medications Medication Sig Dispensed Refills Start Date [...] Coronary mouth at bedtime. artery disease involving s[place] coronary artery of [place] heart without angina pectoris, Obesity (BMI 30-39.9), Essential hypertension, IDDM (insulin dependent diabetes mellitus), Dyslipidemia, DAHL (dyspnea on exertion), Atypical chest pain clopidogrel 75 mg Take 1 tablet by 90 tablet 3 06/04/2019 Active tabletIndications: Coronary mouth daily. artery disease involving s[place] coronary artery of [place] heart without angina pectoris, Obesity (BMI 30-39.9), Essential hypertension, IDDM (insulin dependent diabetes mellitus), Dyslipidemia, DAHL (dyspnea on exertion), Atypical chest pain carvedilol 25 mg Take 1 tablet by 180 tablet 3 06/04/2019 Active tabletIndications: Coronary mouth 2 (two) artery disease involving times daily with snoqualmie coronary artery of meals. s[place]qualmie heart without angina pectoris, Obesity (BMI 30-39.9), [...] renal failure, unspecified acute renal failure type SPIRONOLACTONE 25 mg TAKE 1 TABLET BY 30 tablet 5 04/29/2020 Active tabletIndications: Coronary MOUTH ONCE DAILY artery disease involving s[place]mie coronary artery of snoqualmie heart without angina pectoris, Obesity (BMI 30-39.9) clindamycin 150 mg Take 3 capsules 90 capsule 0 05/15/2020 Active capsuleIndications: Abscess by mouth 3 0 of right thigh (three) times daily for 10 days. 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 documented as of this encounter Last Filed Vital Signs Vital Sign Reading Time Taken Comments Blood Pressure 134/91 05/15/2020 2:00 PM CDT Pulse 93 05/15/2020 2:00 PM CDT Temperature 36.5 C (97.7 F) 05/15/2020 12:42 PM CDT Respiratory Rate 18 05/15/2020 2:00 PM CDT Oxygen Saturation 97% 05/15/2020 2:00 PM CDT Inhaled Oxygen Concentration - - Weight 90.7 kg (200 lb) 05/15/2020 12:42 PM CDT Height - - Body Mass Index 32.28 04/25/2020 3:31 PM CDT documented in this encounter Discharge Instructions Lindsay Church, PAC - 05/15/2020DIAGNOSIS 1. Abscess right thigh 2. Folliculitis of the vulva NO LIFE-THREATENING FINDINGS ON TODAY'S EXAM. PROCEDURES IN THE ER TODAY: none MEDICATIONS ADMINISTERED IN THE ER TODAY: Clindamycin 450 mg YOUR PRESCRIPTIONS AND [id number] MEDICATION RECOMMENDATIONS: Clindamycin 450 mg x 10 days SPECIAL CARE INSTRUCTIONS: 1. Keep genital region clean and dry 2. Continue taking antibiotics until they are completed. 3. Follow up with a primary care physician or urgent care if you don't feel like your infection is healing with the antibiotics. 4. Return to the ER if you feel like your abscess starts to get worse again or if you start running fever greater than 100.4 or have vomiting and cannot keep fluids down. FOLLOW-UP RECOMMENDATIONS: RECOMMEND FOLLOW-UP WITH A PRIMARY CARE PROVIDER OR SPECIALIST IN 2-5 DAYS, ESPECIALLY IF NO IMPROVEMENT IN SYMPTOMS. TO FOLLOW-UP WITHIN THE [facility], TRY THESE OPTIONS (CLINIC APPOINTMENTS AVAILABLE ON [id number] BASIS): 1. SCHEDULE AN APPOINTMENT ONLINE AT [email or web address] 2. OR CALL THE [facility] AT OR 3. OR CALL YOUR [facility] PHYSICIAN'S OFFICE DIRECTLY IF YOU ARE ALREADY AN ESTABLISHED [facility] PATIENT. OR, YOU MAY FOLLOW-UP WITH A PROVIDER OF YOUR CHOICE, SUCH : 1. A PHYSICIAN OF YOUR CHOICE 2. [facility] AND [facility], . LOCATIONS IN [facility] 3. [facility], [address] [place] [address]; [phone] RETURN TO ER FOR WORSENING OF SYMPTOMS. AttachmentsThe following attachments cannot be sent through Care Everywhere. Abscess, Antibiotic Treatment Only (Japanese)documented in this encounter ED Notes Yessi Johnson RN - 05/15/2020 12:41 PM CDTPatient states 3 days ago she noticed "small bumps" in her vaginal area; States today one of the "bumps" was large and painful. documented in this encounter Miscellaneous Notes ED Nurse Note - Nkechi Joyner RN - 05/15/2020 2:49 PM CDTDischarge instructions/prscribed medications reviewed with pt with verbalized understanding. NAD, respirations even and unlabored, AOX4, ambulatory out of ED with a steady gait. documented in this encounter Plan of Treatment Date Type Specialty Care Team Description 05/26/2020 Hospital Encounter Surgery Vinod Flores MD GCA (giant cell [address] arteritis) [id number] [place] [id number] 05/26/2020 Anesthesia Event Surgery Robbie Crabtree MD [address] [place] [phone] 05/26/2020 Surgery Surgery Vinod Flores M D TEMPORAL ARTERY [address] [facility] BI[address]SY [id number] [place] [id number] 06/10/2020 Office Visit Cardiology Zeny Norris MD [address] [phone] 07/28/2020 Office Visit Endocrinology Yina Cardenas MD Diabetes & Metabolism [address] [place] [address] [phone] Health Maintenance Due Date Last Done Comments [...] of this encounter Implants Implanted Type Area Astronomy Instructor Device Identifier Shelf Exp iration Model / Serial Date / Lot Stent STENT documented as of this encounter Procedures Procedure Name Priority Date/Time Associated Comments Diagnosis URINALYSIS STAT 05/15/2020 1:25 PM Abscess of right Resu lts for this CDT thigh procedure are i n the results section. CBC WITH DIFF STAT 05/15/2020 1:25 PM Abscess of right Res ults for this CDT thigh procedure are i n the results section. BASIC METABOLIC STAT 05/15/2020 1:25 PM Abscess of right R esults for this PANEL (NA, K, CL, CDT thigh procedure are in CO2, GLUCOSE, BUN, the resul ts CREATININE, CA) section. ASSIGNMENT OF Routine 05/15/2020 12:33 PM BENEFITS CDT documented in this encounter Results URINALYSIS (05/15/2020 1:25 PM CDT) Pathologist Sig nature APPEARANCE Clear Clear [facility] COLOR Yellow Yellow [facility] PH 5.0 4.8 - 8.0 [facility] SP GRAVITY 1.015 1.003 - 1.030 [facility] GLU U QUAL Normal Normal [facility] BLOOD 1+ (A) Negative [facility] KETONES Negative Negative [facility] PROTEIN Negative Negative [facility] UROBILIN Normal Normal [facility] BILIRUBIN Negative Negative [facility] NITRITE Negative Negative [facility] LEUK JOYCE 75/uL (A) Negative [facility] RBC/HPF 2 0 - 3 HPF [facility] WBC/HPF 26 (H) 0 - 5 HPF [facility] BACTERIA Few (A) Negative [facility] SQ EPITH 1 HPF [facility] Specimen Urine - URINE, CLEAN CATCH Performing Organization Address City/State/Zipcode Phone Number [facility] CLIA: [id number] [place] [address] BASIC METABOLIC PANEL (NA, K, CL, CO2, GLUCOSE, BUN, CREATININE, CA) (05/15/2020 1:25 PM CDT) NA 138 135 - 145 [facility] mmol/L [facility] K 4.4 3.5 - 5.0 [facility] mmol/L [facility] CL 107 98 - 108 mmol/L [facility] CO2 TOTAL 24 23 - 31 mmol/L [facility] AGAP 7 2 - 16 [facility] BUN 35 (H) 7 - 23 mg/dL [facility] GLUCOSE 211 (H) 70 - 110 mg/dL [facility] CREATININE 1.50 (H) 0.50 - 1.04 [facility] mg/dL [facility] CALCIUM 9.3 8.6 - 10.6 [facility] mg/dL [facility] eGFR Calculation 35.1 mL/min/1.73m2 [facility] (Non-[facility] LAB[facility]ATORY Cymro) eGFR Calculation 42.5 mL/min/1.73m2 [facility] () [facility] Specimen Blood - VENOUS Narrative Performed At Association of Glomerular Filtration Rate (GFR) [facility] and Staging of Kidney Disease* + [...] tests). Performing Organization Address City/State/Zipcode Phone Number [facility] CLIA: [id number] [place] [address] CBC WITH DIFF (05/15/2020 1:25 PM CDT) Pathologist Sig nature WBC 13.82 (H) 4.30 - 11.10 [facility] 10*3/L [facility] RBC 3.81 (L) 3.93 - 5.25 [facility] 10*6/L [facility] HGB 11.1 (L) 11.6 - 15.0 [facility] g/dL [facility] HCT 34.8 (L) 35.7 - 45.2 % [facility] MCV 91.3 80.6 - 95.5 fL [facility] MCH 29.1 25.9 - 32.8 pg [facility] MCHC 31.9 31.6 - 35.1 [facility] g/dL [facility] RDW-SD 43.8 39.0 - 49.9 fL [facility] RDW-CV 13.2 12.0 - 15.5 % [facility] PLT 305 166 - 358 [facility] 10*3/L [facility] MPV 9.3 (L) 9.5 - 12.9 fL [facility] NRBC/100 WBC 0.0 0.0 - 10.0 /100 [facility] WBCs [facility] NRBC x10^3 <0.01 10*3/L [facility] GRAN MAT (NEUT) % 66.2 % [facility] IMM GRAN % 1.60 % [facility] LYMPH % 23.3 % [facility] MONO % 7.5 % [facility] EOS % 1.0 % [facility] BASO % 0.4 % [facility] GRAN MAT x10^3(ANC) 9.14 (H) 1.88 - 7.09 [facility] 10*3/uL [facility] IMM GRAN x10^3 0.22 (H) 0.00 - 0.06 [facility] 10*3/uL [facility] LYMPH x10^3 3.22 1.32 - 3.29 [facility] 10*3/uL [facility] MONO x10^3 1.04 (H) 0.33 - 0.92 [facility] 10*3/uL [facility] EOS x10^3 0.14 0.03 - 0.39 [facility] 10*3/uL HOSPITAL LABORATORY BASO x10^3 0.06 0.01 - 0.07 [facility] 10*3/uL [facility] Specimen Blood - VENOUS Performing Organization Address City/State/Zipcode Phone Number [facility] CLIA: [id number] [place] [address] LAB[address] documented in this encounter Visit Diagnoses Diagnosis GCA (giant cell arteritis) - Primary Giant cell arteritis Abscess of right thigh - Primary Cellulitis and abscess of leg, except fo ot GCA (giant cell arteritis) Giant cell arteritis documented in this encounter Administered Medications Medication Order MAR Action Action Date Dose Rate Site clindamycin (CLEOCIN HCL) capsule Given 05/15/2020 2:42 PM CDT 450 mg 450 mg 450 mg, Oral, ONCE, 1 dose, 05/15/20 at 1545, NENA, Reason for Anti-Infective: Documented Infection, Documented Infection Site: Skin / Soft Tissue, Duration of Therapy: Other (see Comments), Restricted use approved by: ADC PROVIDER documented in this encounter Insurance Payer Benefit Plan / Subscriber ID Effective Phone Address T ype Group Dates UNITED UNITED [id number] 2018-Pres Medica re HEALTHCARE - HEALTHCARE ent Adv HM O MANAGED DUAL COMPLETE MEDICARE HMO [employer] MEDICAID OF [id number] 2019-Pre [phone] Medi caid [place] sent [phone] [place] [address] documented as of this encounter
--- OUTSIDE RECORDS SUMMARY | 2020-05-21 08:18 | XMS REPORT | Summary of Care ---
:1955 Author Organization [facility] Address [address] [place] [address] Care Team Providers Name Role Phone Trish López Primary Care Provider Encounter Details Date Type Department Care Team Description 05/15/2020 Orders Only [facility] Doctor Unassigned, No [address] [facility] [place] [address] [address] [place] [id number] Allergies Active Allergy Reactions Severity Noted Date [...] Coronary mouth at bedtime. artery disease involving iliam[place] coronary artery of [place] heart without angina pectoris, Obesity (BMI 30-39.9), Essential hypertension, IDDM (insulin dependent diabetes mellitus), Dyslipidemia, DAHL (dyspnea on exertion), Atypical chest pain clopidogrel 75 mg Take 1 tablet by 90 tablet 3 06/04/2019 Active tabletIndications: Coronary mouth daily. artery disease involving iliam[place] coronary artery of iliam[place] heart without angina pectoris, Obesity (BMI 30-39.9), Essential hypertension, IDDM (insulin dependent diabetes mellitus), Dyslipidemia, DAHL (dyspnea on exertion), Atypical chest pain carvedilol 25 mg Take 1 tablet by 180 tablet 3 06/04/2019 Active tabletIndications: Coronary mouth 2 (two) times artery disease involving iliam[place] daily with meals. coronary artery of iliam[place] heart without angina pectoris, Obesity (BMI 30-39.9), [...] Coronary MOUTH ONCE DAILY artery disease involving ili[place] coronary artery of iliamna heart without angina pectoris, Obesity (BMI 30-39.9) documented as of this encounter (statuses as of 05/15/2020) Active Problems Problem Noted Date Pyelonephritis 04/25/2020 GCA (giant cell arteritis) 04/15/2020 Overview: Added automatically from request for romy tamera [id number] Symptomatic cholelithiasis 03/21/2019 Overview: Added automatically from request for romy tamera [id number] IDDM (insulin dependent diabetes mellitus) 10/01/2018 Chest pain 09/04/2018 Coronary artery disease involving iliamna coronary nahun ry of iliamna heart 09/04/2018 with angina pectoris Abnormal serum [...] Vinod Flores MD GCA (giant cell [address] arteritis) [id number] [place], [place] [id number] 05/26/2020 Anesthesia Event Surgery Robbie Crabtree MD [address] [place] [phone] 05/26/2020 Surgery Surgery Vinod Flores M D TEMPORAL ARTERY [address] BIOPSY [id number] [place] [address] [phone] 06/10/2020 Office Visit Cardiology Zeny Norris MD [address] [place] [phone] 07/28/2020 Office Visit Endocrinology Yina Cardenas MD Diabetes & Metabolism [address] [place] [address] [phone] Health Maintenance Due Date Last Done Comments [...] of this encounter Implants Implanted Type Area Instructor Technical Training Device Identifier Shelf Exp iration Model / Serial Date / Lot Stent STENT documented as of this encounter Procedures Procedure Name Priority Date/Time Associated Diagnosis Comme nts CONSENT/REFUSAL FOR Routine 05/15/2020 12:33 PM CDT DIAGNOSIS AND TREATMENT documented in this encounter Results Not on filedocumented in this encounter Insurance Payer Benefit Plan / Subscriber ID Effective Phone Address T e Group [facility] [id number] 2018-Pres Medica HEALTHCARE - HEALTHCARE ent Adv HM O MANAGED DUAL COMPLETE MEDICARE HMO [facility] MEDICAID OF [id number] 2019-Pre [phone] [facility] sent [phone] [place] [address] documented as of this encounter
--- OUTSIDE RECORDS SUMMARY | 2020-05-21 08:19 | XMS REPORT | Summary of Care ---
:1955 Author Organization [facility] Address [address] [place] [address] Care Team Providers Name Role Phone Trish López Primary Care Provider Reason for Referral Other (NENA) Status Reason Specialty Diagnoses / Referred By Referred To Procedures Contact Contact New Request Diagnoses Abscess Amanuel Henry Adum, Vivian L, MD Procedures Discharge Follow-up: Specialty Provider YULIANA VAUGHAN; 1 Day [address] [id number] [place] [address] [facility] X [phone] Phone: Fax: Reason for Visit Reason Comments Abscess Auth/Cert Status Reason Specialty Diagnoses / Referred By Referred To Procedures Contact Contact Emergency Medicine [facility] Em ergency Dept [address] [place] [address] Fax: Encounter Details Date Type Department Care Team Description 05/17/2020 Emergency ADC-Emergency Amanuel Henry, Abscess, vulvovaginal gland (Primary Dx); Department Abscess [id number] [place] [id number] [place] [address] [phone] Allergies Active Allergy Reactions Severity Noted Date Comments Meperidine Hcl Hives 08/08/2015 documented as of this encounter (statuses as of 05/17/2020) Medications Medication Sig Dispensed Refills Start Date [...] Coronary mouth at bedtime. artery disease involving [place] coronary artery of [place] heart without angina pectoris, Obesity (BMI 30-39.9), Essential hypertension, IDDM (insulin dependent diabetes mellitus), Dyslipidemia, DAHL (dyspnea on exertion), Atypical chest pain clopidogrel 75 mg Take 1 tablet by 90 tablet 3 06/04/2019 Active tabletIndications: Coronary mouth daily. artery disease involving [place] coronary artery of [place] heart without angina pectoris, Obesity (BMI 30-39.9), Essential hypertension, IDDM (insulin dependent diabetes mellitus), Dyslipidemia, DAHL (dyspnea on exertion), Atypical chest pain carvedilol 25 mg Take 1 tablet by 180 tablet 3 06/04/2019 Active tabletIndications: Coronary mouth 2 (two) artery disease involving times daily with [place] coronary artery of meals. [place] heart without angina pectoris, Obesity (BMI 30-39.9), [...] Coronary MOUTH ONCE DAILY artery disease involving [place] coronary artery of [place] heart without angina pectoris, Obesity (BMI 30-39.9) clindamycin 150 mg Take 3 capsules 90 capsule 0 05/15/2020 Active capsuleIndications: Abscess by mouth 3 0 of right thigh (three) times daily for 10 days. traMADol (ULTRAM) 50 mg Take 1 tablet by 20 tablet 0 0 Active tabletIndications: acute mouth every 6 pain (six) hours as needed for Pain (scale 7-10). Indications: acute pain documented as of this encounter (statuses as of 05/17/2020) Active Problems Problem Noted Date Pyelonephritis 04/25/2020 GCA (giant cell arteritis) 04/15/2020 Overview: Added automatically from request for romy tamera [id number] Symptomatic cholelithiasis 03/21/2019 Overview: Added automatically from request for romy tamera [id number] IDDM (insulin dependent diabetes mellitus) 10/01/2018 Chest pain 09/04/2018 Coronary artery disease involving [place] coronary nahun ry of [place] heart 09/04/2018 with angina pectoris Abnormal serum level of lipase 09/04/2018 Calculus of gallbladder without cholecystitis without obstruction 09/04/2018 Liver lesion 09/04/2018 Abnormal nuclear stress test 08/10/2018 Essential hypertension 08/08/2018 Dyslipidemia 08/08/2018 Atypical chest pain 08/07/2018 Obesity (BMI 30-39.9) 03/27/2017 documented as of this encounter (statuses as of 05/17/2020) Immunizations Name Administration Dates Next Due Influenza [...] been in contact with No / Unsure 05/17/2020 9:21 PM CDT someone who was confirmed or suspected to have Coronavirus / COVID-19? documented as of this encounter Last Filed Vital Signs Vital Sign Reading Time Taken Comments Blood Pressure 143/94 05/17/2020 11:05 PM CDT Pulse 91 05/17/2020 11:05 PM CDT Temperature 36.6 C (97.8 F) 05/17/2020 9:58 PM CDT Respiratory Rate 20 05/17/2020 11:05 PM CDT Oxygen Saturation 99% 05/17/2020 11:05 PM CDT Inhaled Oxygen Concentration - - Weight 90.7 kg (200 lb) 05/17/2020 9:58 PM CDT Height - - Body Mass Index 32.28 04/25/2020 3:31 PM CDT documented in this encounter Discharge Instructions Amanuel Garber MD - 05/17/2020 DIAGNOSIS Diagnoses that have been ruled out: None Diagnoses that are still under consideration: None Final diagnoses: Abscess Abscess, vulvovaginal gland NO LIFE-THREATENING FINDINGS ON TODAY'S EXAM. PROCEDURES IN THE ER TODAY: No orders of the defined types were placed in this encounter. MEDICATIONS ADMINISTERED IN THE ER TODAY AND DISCHARGE MEDICATIONS: Orders Placed This Encounter Medications HYDROcodone-acetaminophen (NORCO) 10-325 mg tablet 1 tablet FOLLOW-UP RECOMMENDATIONS: RECOMMEND FOLLOW-UP WITH DR NG, DR VAUGHAN, Dr Dunham OR ANY OTHER FURNACE REPAIRER OF CHOICE FOR INCISION AND DRAINAGE OF THE ABSCESSES DISCUSSED AttachmentsThe following attachments cannot be sent through Care Everywhere. Abscess, Antibiotic Treatment Only (Nauruan)documented in this encounter ED Notes Artem Saini RN - 05/17/2020 9:44 PM CDTPatient states, "I was here on Sunday and they put me on some antibiotics for an abscess I have and they are getting worse." Reports abscess is to right upper leg near vagina and has one in vaginal region. 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 Pt claims that she was never given any analgesics and she is in pain. No fever reported. Denies any other complaints Past Medical History / Immunizations Past Medical History: Diagnosis Date Acid reflux Coronary artery disease S/p PCI (August 2018) Diabetes Uncontrolled, last A1c 10.1 (October 2018) Gallbladder stone with nonacute cholecystitis Hyperlipidemia Hypertension Obesity Tetanus received in last 5 years: No Childhood immunizations: Up-to-date Past Surgical History Past Surgical History: Procedure Laterality Date LAP,CHOLECYSTECTOMY 04/21/2019 LAPAROSCOPIC CHOLECYSTECTOMY N/A 04/21/2019 Surgeon: Tristian Downey MD; Location: [facility] OR [facility] STENT PLACEMENT (SHX) Cardiac Allergies Allergies Allergen Reactions Demerol [Meperidine Hcl] Hives Social History Tobacco Use Former Smoker. Smokeless Tobacco: Never used smokeless tobacco. Comments: quit 2 years ago Alcohol Use Yes. Drug Use No. Review of Systems Review of Systems Constitutional: Negative. Negative for chills, diaphoresis, fatigue, fever and unexpected weight change. HENT: Negative. Eyes: Negative. Respiratory: Negative. Breasts: Negative. Cardiovascular: Negative. Gastrointestinal: Negative. Genitourinary: Positive for vaginal pain. Negative for vaginal discharge. Skin: Negative. Neurological: Negative. Psychiatric/Behavioral: Negative. Endocrine: Endocrine negative Physical Exam BP (!) 156/93 | Pulse 94 | Temp 36.6 C (97.8 F) | Resp 20 | Wt 90.7 kg (200 lb) | SpO2 98%| BMI 32.28 kg/m Physical Exam Vitals signs and nursing note reviewed. Constitutional: General: She is not in acute distress. Appearance: She is well-developed. She is not ill-appearing, toxic-appearing or diaphoretic. HENT: Head: Normocephalic and atraumatic. Right Ear: External ear normal. Left Ear: External ear normal. Nose: Nose normal. Mouth/Throat: Pharynx: No oropharyngeal exudate. Eyes: General: No scleral icterus. Right eye: No discharge. Left eye: No discharge. Conjunctiva/sclera: Conjunctivae normal. Pupils: Pupils are equal, round, and reactive to light. Neck: Musculoskeletal: Normal range of motion and neck supple. Thyroid: No thyromegaly. Cardiovascular: Rate and Rhythm: Normal rate and regular rhythm. Heart sounds: Normal heart sounds. No murmur. Pulmonary: Effort: Pulmonary effort is normal. No respiratory distress. Breath sounds: Normal breath sounds. No stridor. No wheezing or rales. Chest: Chest wall: No tenderness. Abdominal: General: Bowel sounds are normal. There is no distension. Palpations: Abdomen is soft. Tenderness: There is no abdominal tenderness. There is no right CVA tenderness, left CVA tenderness, guarding or rebound. Genitourinary: Vagina: No vaginal discharge. Comments: Has multiple abscesses to vulvovaginal area. No drainage. No fluctuance Musculoskeletal: Normal range of motion. General: No tenderness or deformity. Lymphadenopathy: Cervical: No cervical adenopathy. Skin: General: Skin is warm and dry. Coloration: Skin is not jaundiced or pale. Findings: No bruising, erythema, lesion or rash. Neurological: General: No focal deficit present. Mental Status: She is alert and oriented to person, place, and time. Motor: No abnormal muscle tone. Coordination: Coordination normal. Psychiatric: Behavior: Behavior normal. Thought Content: Thought content normal. Judgment: Judgment normal. Labs No results found for this or any previous visit (from the past 24 hour(s)). Imaging No results found for this visit on 05/17/20. Orders and Treatments No orders of the defined types were placed in this encounter. Orders Placed This Encounter Medications HYDROcodone-acetaminophen (NORCO) 10-325 mg tablet 1 tablet traMADol (ULTRAM) 50 mg tablet Procedures See ED Procedure Note Notes & MDM Patient was evaluated for an emergency medical condition related to Abscess . Differential diagnoses considered by presenting complaints but not limited to: Abscess. Labs:were not ordered. Imaging:Was not ordered IV fluids: not indicated Procedures:were not performed. EKG: An EKG was not performed. Pulse Oximetry room air 98%=Normal Assessment: Discussed need to have multiple abscess evaluated and managed by FURNACE REPAIRER as patient is diabetic and has other comorbidities and will therefore require DEFINITIVE management. Pt given analgesics and is currently on Clindamycin History, physical exam findings, results of visit, differential diagnosis, medication regimens and plan of future care have been considered. Additional MDM may be found in the ED course. Differential diagnosis considered and final disposition made based on information gathered during evaluation and may not be completely ruled out or specifically listed. Vital signs were rechecked before final disposition and determined to be stable. Diagnosis ICD-10-CM ICD-9-CM 1. Abscess, vulvovaginal gland N75.1 616.3 2. Abscess L02.91 682.9 Disposition & Follow Up ED Disposition ED Disposition Condition Comment Disch - Home Stable Patient's Medications START taking these medications TRAMADOL (ULTRAM) 50 MG TABLET Take 1 tablet by mouth every 6 (six) hours as needed for Pain (scale 7-10). Indications: acute pain CONTINUE taking these medications which have NOT [...] mL by mouth every 6 (six) hours. ATORVASTATIN 40 MG TABLET Take 1 tablet by mouth at bedtime. BABY ASPIRIN ORAL Take 1 tablet by mouth daily. CARVEDILOL 25 MG TABLET Take 1 tablet by mouth 2 (two) times daily with meals. CLINDAMYCIN 150 MG CAPSULE Take 3 capsules by mouth 3 (three) times daily for 10 days. CLOPIDOGREL 75 MG TABLET Take 1 tablet by mouth daily. EASY TOUCH ALCOHOL PREP PADS PADM USE TO TEST BLOOD GLUCOSE THREE TIMES DAILY 90 ESOMEPRAZOLE 40 MG CAPSULE GLIPIZIDE ORAL Take 2 mg by mouth [...] (two) times daily before breakfast and dinner. LACTOBACILLUS ACIDOPHILUS 25 MILLION CELL -100 MG CAPTAB Take 1 tablet by mouth 2 (two) times daily. LANCETS 30 [facility] USE TO TEST BLOOD GLUCOSE THREE TIMES DAILY MECLIZINE 25 MG TABLET Take 1 tablet [...] and Vomiting (N/V). PREDNISONE 20 MG TABLET 2 tabs po daily SERTRALINE 25 MG TABLET Take 50 mg by mouth daily. SITAGLIPTIN (JANUVIA) 100 MG TABLET Take 1 tablet by mouth daily. SPIRONOLACTONE 25 MG TABLET TAKE 1 TABLET BY MOUTH ONCE DAILY TRAMADOL 50 MG TABLET Take 1 tablet by mouth every 6 (six) hours as needed for Pain (scale 1-3) or Pain (scale 4-6). START taking Modified Medications as Prescribed No medications on file STOP taking these medications No medications on file Contact information for follow-up Jannie López Specialty: FM-FAMILY MEDICINE Relationship: PCP - General [address] [facility] [address] [facility] [address] Jannie López Specialty: FM-FAMILY MEDICINE Relationship: PCP - General [address] [address] Amanuel Henry MD 05/17/2020 10:40 PM ACTIVE COVID-19 PANDEMIC. documented in this encounter Miscellaneous Notes ED Nurse Note - Oliver Wagoner, RN - 05/17/2020 11:28 PM CDTPt given printed and verbal discharge instructions regarding abscesses, encouraged hydration, warm compresses, soaks as tolerated. Discussed antibiotic therapy and to continue until all completed unless adverse reaction occurs - ifoccurs, discontinue medication and follow up with pcp/seek medical attention Discussed tramadol side effects and to avoid driving/operating machinery/or engaging in activities requiring alertness while taking. Pt encouraged to follow up with DIRECT SUPPORT STAFF Advised to seek medical attention for new/prolonged/worsening of symptoms. No adverse reaction to meds given in ER noted upon discharge. Pt verbalized understanding of instructions, awake alert oriented, resp reg unlabored, skin w/d, color appropriate for race, moves all ext well, pt leaving amb with steady gait, in no apparent distress, D Nurse Note - Jaja Alex RN - 05/17/2020 11:25 PM CDTPatient calling for a ride. documented in this encounter Plan of Treatment Date Type Specialty Care Team Description 05/26/2020 Hospital Encounter Surgery Vinod Flores MD GCA (giant cell [address] arteritis) [id number] [place], [place] [id number] 05/26/2020 Anesthesia Event Surgery Robbie Crabtree MD [address] [place] [phone] 05/26/2020 Surgery Surgery Vinod Flores M D TEMPORAL ARTERY [address] [id number] [place] [address] [phone] 06/10/2020 Office Visit Cardiology eZny Norris MD [address] [place] [phone] 07/28/2020 Office Visit Endocrinology Yina Cardenas MD Diabetes & Metabolism [address] [place] [address] [phone] Health Maintenance Due Date Last Done Comments [...] 04/15/2020 LDL-C 04/17/2021 04/17/2020, 08/07/2018 CREATININE (SERUM) 05/15/2021 05/15/2020, 04/27/2020, 04/26/2020, Additional history exists PNEUMOCOCCAL 0-64 YEARS COMBINED Completed 09/04/2018 SERIES documented as of this encounter Implants Implanted Type Area Cooler Service Supervisor Device Identifier Shelf Exp iration Model / Serial Date / Lot Stent STENT documented as of this encounter Procedures Procedure Name Priority Date/Time Associated Diagnosis Comme nts CONSENT/REFUSAL FOR Routine 05/17/2020 9:21 PM CDT DIAGNOSIS AND TREATMENT documented in this encounter Results Not on filedocumented in this encounter Visit Diagnoses Diagnosis GCA (giant cell arteritis) - Primary Giant cell arteritis Abscess, vulvovaginal gland - Primary Abscess of Bartholin's gland Abscess Cellulitis and abscess of unspecified si te GCA (giant cell arteritis) Giant cell arteritis documented in this encounter Administered Medications Medication Order MAR Action Action Date Dose Rate Site HYDROcodone-acetaminophen Given 05/17/2020 11:22 PM CDT 1 tablet (NORCO) 10-325 mg tablet 1 tablet 1 tablet, Oral, ONCE NOW, 1 dose, 05/17/20 at 2345, Routine documented in this encounter Insurance Payer Benefit Plan / Subscriber ID Effective Phone Address T e Group [facility] [id number] 2018-Pres [facility] - HEALTHCARE ent Adv HM O MANAGED DUAL COMPLETE MEDICARE HMO [facility] MEDICAID OF [id number] 2019-Pre [phone] [facility] sent [phone] [place] [address] documented as of this encounter
--- OUTSIDE RECORDS SUMMARY | 2020-05-21 08:20 | XMS REPORT | Summary of Care ---
:1955 Author Organization [facility] [place] [facility] Address [address] [place] [address] Care Team Providers Name Role Phone Trish López Primary Care Provider Reason for Visit Reason Comments Lab Results Encounter Details Date Type Department Care Team Description 05/18/2020 Telephone [facility] Cardiology- Zeny Norris MD Lab Results [place] [address] [facility], Suite [facility] [address] [place] [address] [place] [address] [phone] Allergies Active Allergy Reactions Severity Noted Date Comments Meperidine Hcl Hives 08/08/2015 documented as of this encounter (statuses as of 05/18/2020) Medications Medication Sig Dispensed Refills Start Date [...] mouth every Symptomatic cholelithiasis 6 (six) hours. clopidogrel 75 mg Take 1 tablet 90 tablet 3 06/04/2019 Active tabletIndications: by mouth daily. Coronary artery disease involving [place] coronary artery of [place] heart without angina pectoris, Obesity (BMI 30-39.9), Essential hypertension, IDDM (insulin dependent diabetes mellitus), Dyslipidemia, DAHL (dyspnea on exertion), Atypical chest pain carvedilol 25 mg Take 1 tablet 180 tablet 3 06/04/2019 Active tabletIndications: by mouth 2 Coronary artery disease (two) times involving [place] coronary daily with artery of [place] heart meals. without angina pectoris, Obesity (BMI [...] failure, unspecified daily. acute renal failure type SPIRONOLACTONE 25 mg TAKE 1 TABLET 30 tablet 5 04/29/2020 Active tabletIndications: BY MOUTH ONCE Coronary artery disease DAILY involving [place] coronary artery of [place] heart without angina pectoris, Obesity (BMI 30-39.9) clindamycin 150 mg Take 3 capsules 90 capsule 0 05/15/202025/11 Active capsuleIndications: by mouth 3 020 Abscess of right thigh (three) times daily for 10 days. traMADol (ULTRAM) 50 mg Take 1 tablet 20 tablet 0 05/17/2020 Active tabletIndications: acute by mouth every pain 6 (six) hours as needed for Pain (scale 7-10). Indications: acute pain atorvastatin 80 mg Take 1 tablet 90 tablet 3 05/18/2020 Active tabletIndications: by mouth at Coronary artery disease bedtime. involving [place] coronary artery of [place] heart without angina pectoris, Obesity (BMI 30-39.9), Essential hypertension, IDDM (insulin dependent diabetes mellitus), Dyslipidemia, DAHL (dyspnea on exertion), Atypical chest pain atorvastatin 40 mg Take 1 tablet 90 tablet 3 06/04/2019 Discontinued tabletIndications: by mouth at 020 Coronary artery disease bedtime. involving [place] coronary artery of [place] heart without angina pectoris, Obesity (BMI 30-39.9), Essential hypertension, IDDM (insulin dependent diabetes mellitus), Dyslipidemia, DAHL (dyspnea on exertion), Atypical chest pain documented as of this encounter (statuses as of 05/18/2020) Active Problems Problem Noted Date Pyelonephritis 04/25/2020 GCA (giant cell arteritis) 04/15/2020 Overview: Added automatically from request for romy philip [id number] Symptomatic cholelithiasis 03/21/2019 Overview: Added automatically from request for romy philip [id number] IDDM (insulin dependent diabetes mellitus) 10/01/2018 Chest pain 09/04/2018 Coronary artery disease involving [place] coronary nahun ry of [place] heart 09/04/2018 with angina pectoris Abnormal serum level of lipase 09/04/2018 Calculus of gallbladder without cholecystitis without obstruction 09/04/2018 Liver lesion 09/04/2018 Abnormal nuclear stress test 08/10/2018 Essential hypertension 08/08/2018 Dyslipidemia 08/08/2018 Atypical chest pain 08/07/2018 Obesity (BMI 30-39.9) 03/27/2017 documented as of this encounter (statuses as of 05/18/2020) Immunizations Name Administration Dates Next Due Influenza [...] this encounter Miscellaneous Notes Telephone Encounter - Archana Cassidy RN - 05/18/2020 4:02 PM CDT Called and informed patient of results and recommendations. She verbalized understanding. [facility] Zeny Norris MD P Cardiology Nurse NT pro BNP normal LDL is increasing. Recommend to increase lipitor 80 mg daily. Rpt CMP and lipid in 2 months Goal LDL << 70 documented in this encounter Plan of Treatment Date Type Specialty Care Team Description 06/10/2020 Office Visit Cardiology Zeny Norris MD [address] [address] 06/16/2020 Hospital Encounter Surgery Vinod Flores MD GCA (giant cell [address] arteritis) [id number] [place] [address] [phone] 06/16/2020 Anesthesia Event Surgery Robbie Crabtree MD [address] [place] [phone] 06/16/2020 Surgery Surgery Vinod Flores M D TEMPORAL ARTERY [id number] [place] [address] [phone] 06/17/2020 Office Visit Ophthalmology Vinod Flores M D [id number] [place] [phone] 07/28/2020 Office Visit Endocrinology Yina Cardenas MD Diabetes & Metabolism [address] [place] [address] [phone] Name Type Priority Associated Diagnoses Order S chedule COMP. METABOLIC PANEL LAB Routine Coronary artery dis ease Expected: 06/17/2020, ([id number]) involving [place] coronary Ex edil: 05/18/2021 artery of [place] heart without angina p ectoris Obesity (BMI 30- 39.9) Essential hypert ension IDDM (insulin dependent diabetes mellitu s) Dyslipidemia DAHL (dyspnea on exertion) Atypical chest pain LIPID PANEL LAB Routine Coronary artery disease Expe cted: 06/17/2020, ([id number])(TOTAL involving [place] coronary E xpires: 05/18/2021 CHOLESTEROL, artery of [place] heart TRIGLYCERIDES, HDL) without tsering na pectoris Obesity (BMI 30- 39.9) Essential hypert ension IDDM (insulin dependent diabetes mellitu s) Dyslipidemia DAHL (dyspnea on exertion) Atypical chest pain Health Maintenance Due Date Last Done Comments [...] of this encounter Implants Implanted Type Area [employer]mv Driver Device Identifier Shelf Exp iration Model / Serial Date / Lot Stent STENT documented as of this encounter Results Not on filedocumented in this encounter Visit Diagnoses Diagnosis GCA (giant cell arteritis) - Primary Giant cell arteritis Coronary artery disease involving [place] coronary artery of [place] heart without angina pectoris Obesity (BMI 30-39.9) Obesity, unspecified Essential hypertension Unspecified essential hypertension IDDM (insulin dependent diabetes mellitu s) Type II or unspecified type diabetes mercedes litus without mention of complication, not stated as uncontrolled Dyslipidemia Other and unspecified hyperlipidemia DAHL (dyspnea on exertion) Other dyspnea and respiratory abnormalit y Atypical chest pain Other chest pain GCA (giant cell arteritis) Giant cell arteritis documented in this encounter Insurance Payer Benefit Plan / Subscriber ID Effective Phone Address T [facility] [id number] 2018-[employer] [facility] - HEALTHCARE ent Adv HM O MANAGED DUAL COMPLETE MEDICARE HMO [facility] MEDICAID OF [id number] 2019-Pre [phone] [address] [facility] sent [phone] [place] [address] documented as of this encounter
[2020-05-21] MEDS ORDERED: SODIUM HYPOCHLORITE 0.25% 473 ML TOP ONE (08:45)
[2020-05-21] MEDS ORDERED: CEFAZOLIN/SWI 1gm 1 GM/10 ML SYR ONE (08:51)
[2020-05-21] MEDS ORDERED: NA CHLORIDE 0.9% 1,000 ML ONE (08:51)
[2020-05-21] MEDS ORDERED: propofoL 200 MG/20 ML VIAL IV ONE (09:04)
[2020-05-21] MEDS ORDERED: MIDAZOLAM HCL 2 MG/2 ML INJ ONE (09:04)
[2020-05-21] MEDS ORDERED: FENTANYL CITR 100 MCG/2 ML ONE (09:05)
[2020-05-21] MEDS ORDERED: LIDOCAINE 1% MPF 5 ML VIAL ONE (09:05)
[2020-05-21] MEDS ORDERED: INSULIN -REGULAR HUMAN 50 UNIT/0.5 ML ML ONE ×2 (09:09→10:22)
[2020-05-21] MEDS ORDERED: BUPIVACA 0.25%/EPI 0.0005%/PF 30 ML VIAL ONE (09:18)
[2020-05-21] MEDS ORDERED: ONDANSETRON 4 MG/2 ML VIAL ONE (09:34)
[2020-05-21] MEDS ORDERED: dexAMETHasone 10 MG/ML VIAL ONE (09:34)
[2020-05-21] MEDS ORDERED: KETOROLAC 30 MG/ML INJ ONE (09:34)
[2020-05-21] MEDS ORDERED: EPHEDRINE SULF 50 MG/ML VIAL ONE (09:36)
[2020-05-21] MEDS ORDERED: NS 0.9% VIAL 10 ML ONE (09:36)
--- NOTE | 2020-05-21 09:53 | P.OP ---
Director Of Music: NONE,NONE Preoperative diagnosis: LEFT Innter Thigh and Labial Abscess Postoperative diagnosis: LEFT Innter Thigh and Labial Abscess Primary procedure: Excisional Debridement of LEFT Innter Thigh and Labial Abscess Anesthesia: GETA + Local Estimated blood loss: <10c Specimen: Cultures, Debridement Tissue Findings: 5x6x3 cm LEFT Innter Thigh and 1x1x 0.5 cm Labial Abscess Complications: None Transferred to: Recovery Room Condition: Good
[2020-05-21] MEDS: HYDROMORPHONE HCL 1 MG/ML INJ ONE ×2 (10:12→10:17)
[2020-05-21] MEDS ORDERED: PROMETHAZINE INJ 25 MG/ML AMP ONE (10:28)
[2020-05-21 11:00] VITALS: TEMP 97.5
[2020-05-21 11:54] VITALS: O2SAT 97
--- NOTE | 2020-05-21 11:56 | OP ---
Date of Procedure: 05/21/2020 Surgeon: Imer Tomas MD, Hospital Medicine Director: None. Preoperative Diagnosis: Right inner thigh and labial abscess. Postoperative Diagnosis: Right inner thigh and labial abscess. Procedure Performed: Excisional debridement of right inner thigh and labial abscess. Anesthesia: General endotracheal plus local with 0.25% Marcaine with epinephrine. Estimated Blood Loss: Less than 10 mL. Specimen: Cultures and debridement tissue. Findings: 1. 5 x 6 x 3 cm right inner thigh necrotic abscess. 2. 1 x 1 x 0.5 cm right labial abscess. Complications: None. Disposition: Transferred to recovery room in good condition. Procedure In Detail: After informed consent was obtained, the patient was brought to the operating room, prepped and draped in the usual sterile fashion. After adequate anesthesia achieved, I anesthetized the area of the right inner thigh and right labia down to subcutaneous tissues. I made an elliptical incision around the right inner thigh aspect and encountered immediately a large multiloculated abscess. This was cultured for both aerobic and anaerobic speciation. I circumferentially removed all necrotic tissue and debrided using a combination of curette, sharp dissection with electrocautery. The debridement tissue was sent off for pathologic examination. The area was copiously irrigated multiple times until completely clear. The abscess cavity was completely unroofed to allow for marsupialization of this area. I then turned my attention to the labia. The mid-anterior aspect of the labia had a small 1 cm x 1 cm area of abscess with necrotic tissue emanating and posterior abscess. I incised this and took a small ellipse of skin out with a tenotomy scissor down to subcutaneous tissues for approximately 0.5 cm depth. I irrigated both of these once again copiously until completely clear. Hemostasis was achieved with electrocautery and both wounds were packed. The labia were packed with quarter- inch iodoform packing and the right inner thigh wound was packed with a damp to dry Kerlix soaked in Dakin solution 0.25% strength and packed a sterile dressing over top. The patient tolerated the procedure well without evidence of complication and transferred to PACU in good condition. All counts were correct at the end of the case. SHENG/MANE Voice ID: [id number] Report ID: [id number] [facility]IC[facility]
[2020-05-21 13:04] VITALS: BP 100/63
== END 2020-05-21 12:45 | disposition home or self-care (01) ==
LOC: OR 08:00
PROVIDERS: ATTEND Surgery
PROC: 0JBL0ZZ Excision of Right Upper Leg Subcutaneous Tissue and Fascia, Open Approach (ICD-10-PCS; principal; 2020-05-21 10:15)
DX: L02.415 Cutaneous abscess of right lower limb (principal); L97.119 Non-pressure chronic ulcer of right thigh with unspecified severity; N76.4 Abscess of vulva; I96 Gangrene, not elsewhere classified; Z01.812 Encounter for preprocedural laboratory examination; Z11.59 Encounter for screening for other viral diseases; E11.9 Type 2 diabetes mellitus without complications; E03.9 Hypothyroidism, unspecified; I10 Essential (primary) hypertension; I25.10 Atherosclerotic heart disease of native coronary artery without angina pectoris; K21.9 Gastro-esophageal reflux disease without esophagitis; F32.9 Major depressive disorder, single episode, unspecified; M15.9 Polyosteoarthritis, unspecified; F17.210 Nicotine dependence, cigarettes, uncomplicated; Z79.4 Long term (current) use of insulin; Z79.02 Long term (current) use of antithrombotics/antiplatelets; Z79.82 Long term (current) use of aspirin; Z79.899 Other long term (current) drug therapy; Z95.5 Presence of coronary angioplasty implant and graft
CPT/HCPCS: 87088; 87070; 85025; 87086; 80048; 36415; 87205; 82947 ×2; 88304; 87075; 87077 ×2; 87186 ×2; 11042; 11045; U0002; J2704; J2550; J3010; J1170; J0690; J7030; J2405; 81003; 81015; J1100; J2250

== ENCOUNTER 2020-06-04 08:52 | Emergency (ER) | payer OTHER ==
--- OUTSIDE RECORDS SUMMARY | 2020-06-04 09:10 | XMS REPORT | Continuity of Care Document ---
:1955 Author Organization [facility] t Address [address] [place] [address] Dr. Holman. [address] [place] [address] Care Team Providers Name Role Phone Jr LINK, K.H. Attending Clinician Elaine LINK, S Attending Clinician Nusrat SAUER, S Attending [...] Date/Time Type Type Clinicians Facility Department ID 2020-05-28 2020-05-28 Refill EDUARD Norris [id number] 00:00:00 00:00:00 Zeny Abraham [id number] [place] [id number] [place] [phone] [address] 2020-05-18 2020-05-18 Telephone EDUARD Norris [id number] 00:00:00 00:00:00 Zeny Abraham [id number] [place] [id number] [place] [phone] nal 059 [facility] 2020-05-17 2020-05-17 Emergency [facility] [id number] 21:53:00 23:29:00 Amanuel Abraham [id number] [place] [id number] [place] [phone] [phone] 2020-05-15 Emergency [facility] [id number] 12:43:00 14:50:00 Lindsay [place] [id number] [place] [id number] [place] [phone] [id number] 2020-05-15 2020-05-15 Orders Doctor [facility] [id number] 00:00:00 00:00:00 Only Unassigned, MARCO [id number] [place] [facility] [id number] [id number] 2020-05-12 2020-05-12 Telephone [facility] [id number] 00:00:00 00:00:00 Zeny Abraham [id number] [place] [id number] [place] [phone] nal 059 [facility] 2020-05-11 2020-05-11 Telephone Flores [facility] [id number] 00:00:00 00:00:00 R Y [id number] [facility] [id number] [facility] [phone] [address]LDG. 136 2020-04-29 2020-04-29 [facility] [id number] 00:00:00 00:00:00 Zeny Abraham [id number] [place] [id number] [place] [phone] nal 059 [facility] 2020-04-29 2020-04-29 Transition Yoselin Longoria [id number] 00:00:00 00:00:00 of Care Azalia Scruggsy [id number] [place] [id number] [id number] 2020-04-28 2020-04-28 Yoselin Mann [id number] 00:00:00 00:00:00 of Care Azalia Scruggsy [id number] [place] [id number] [id number] 2020-04-19 2020-04-19 Orders Doctor GAUDENCIO [id number] 00:00:00 00:00:00 Only Unassigned, MARCO [id number] [place] [facility] [phone] [id number] Results This patient has no known results.
--- OUTSIDE RECORDS SUMMARY | 2020-06-04 09:23 | XMS REPORT | Summary of Care ---
:1955 Author Organization [facility] Address [address] [place] [address] Care Team Providers Name Role Phone Trish López Primary Care Provider Reason for Visit Reason Comments Refill Request Encounter Details Date Type Department Care Team Description 05/28/2020 Refill [facility] Cardiology- Zeny Norris MD Refill Request [place] [address] [facility], [address] [place] [address] [place] [address] [phone] Allergies Active Allergy Reactions Severity Noted Date Comments Meperidine Hcl Hives 08/08/2015 documented as of this encounter (statuses as of 06/01/2020) Medications Medication Sig Dispensed Refills Start Date [...] mouth every Symptomatic cholelithiasis 6 (six) hours. carvedilol 25 mg Take 1 tablet 180 tablet 3 06/04/2019 Active tabletIndications: by mouth 2 Coronary artery disease (two) times involving [place] coronary daily with artery of [place] heart meals. without angina pectoris, Obesity (BMI [...] MOUTH ONCE Coronary artery disease DAILY involving [place] coronary artery of [place] heart without angina pectoris, Obesity (BMI 30-39.9) traMADol (ULTRAM) 50 mg Take 1 tablet 20 tablet 0 05/17/2020 Active tabletIndications: acute by mouth every pain 6 (six) hours as needed for Pain (scale 7-10). Indications: acute pain atorvastatin 80 mg Take 1 tablet 90 tablet 3 05/18/2020 Active tabletIndications: by mouth at Coronary artery disease bedtime. involving [place] coronary artery of [place] heart without angina pectoris, Obesity (BMI 30-39.9), Essential hypertension, IDDM (insulin dependent diabetes mellitus), Dyslipidemia, DAHL (dyspnea on exertion), Atypical chest pain CLOPIDOGREL 75 mg TAKE 1 TABLET 30 tablet 1 06/01/2020 Active tabletIndications: BY MOUTH ONCE Coronary artery disease DAILY involving [place] coronary artery of [place] heart without angina pectoris, Obesity (BMI 30-39.9), Essential hypertension, IDDM (insulin dependent diabetes mellitus), Dyslipidemia, DAHL (dyspnea on exertion), Atypical chest pain clopidogrel 75 mg Take 1 tablet 90 tablet 3 06/04/2019 Discontinued tabletIndications: by mouth daily. 020 Coronary artery disease involving [place] coronary artery of [place] heart without angina pectoris, Obesity (BMI 30-39.9), Essential hypertension, IDDM (insulin dependent diabetes mellitus), Dyslipidemia, DAHL (dyspnea on exertion), Atypical chest pain documented as of this encounter (statuses as of 06/01/2020) Active Problems Problem Noted Date Pyelonephritis 04/25/2020 GCA (giant cell arteritis) 04/15/2020 Overview: Added automatically from request for romy philip [id number] Symptomatic cholelithiasis 03/21/2019 Overview: Added automatically from request for romy philip [id number] IDDM (insulin dependent diabetes mellitus) 10/01/2018 Chest pain 09/04/2018 Coronary artery disease involving [place] coronary nahun ry of [place] heart 09/04/2018 with angina pectoris Abnormal serum level of lipase 09/04/2018 Calculus of gallbladder without cholecystitis without obstruction 09/04/2018 Liver lesion 09/04/2018 Abnormal nuclear stress test 08/10/2018 Essential hypertension 08/08/2018 Dyslipidemia 08/08/2018 Atypical chest pain 08/07/2018 Obesity (BMI 30-39.9) 03/27/2017 documented as of this encounter (statuses as of 06/01/2020) Immunizations Name Administration Dates Next Due Influenza [...] this encounter Miscellaneous Notes Telephone Encounter - Jessica Singer RN - 06/01/2020 11:11 AM CDT Requested Prescriptions Pending Prescriptions Disp Refills CLOPIDOGREL 75 mg tablet [Pharmacy Med Name: CLOPIDOGREL 75 MG TABLET] 30 tablet 11 Sig: TAKE 1 TABLET BY MOUTH ONCE DAILY Sent per guidelines. Patient needs bloodwork before next refill. documented in this encounter Plan of Treatment Date Type Specialty Care Team Description 06/10/2020 Office Visit Cardiology Zeny Norris MD [address] [address] 06/16/2020 Hospital Encounter Surgery Vinod Flores MD GCA (giant cell [address] arteritis) [id number] [place] [address] [phone] 06/16/2020 Anesthesia Event Surgery Robbie Crabtree MD [address] [place] [phone] 06/16/2020 Surgery Surgery Vinod Flores M D TEMPORAL ARTERY [address] BIOPSY [id number] [place] [address] [phone] 06/17/2020 Office Visit Ophthalmology Vinod Flores M D [address] [id number] [place] [address] [phone] 07/28/2020 Office Visit Endocrinology Yina Cardenas MD Diabetes & Metabolism [facility] [place], [place] [address] Health Maintenance Due Date Last Done Comments [...] of this encounter Implants Implanted Type Area Vacuum Cleaner Mechanic Device Identifier Shelf Exp iration Model / Serial Date / Lot Stent STENT documented as of this encounter Results Not on filedocumented in this encounter Visit Diagnoses Diagnosis GCA (giant cell arteritis) - Primary Giant cell arteritis Coronary artery disease involving [place] coronary artery of [place] heart without angina pectoris Obesity (BMI 30-39.9) [...] Effective Phone Address T ype Group Dates [facility] [id number] 2018-Pres Medica re HEALTHCARE - HEALTHCARE ent Adv HM O MANAGED DUAL COMPLETE MEDICARE HMO [facility] MEDICAID OF [id number] 2019-Pre [phone] [facility] [place] sent [phone] [place] [address] documented as of this encounter
--- NOTE | 2020-06-04 10:51 | RAD REPORT ---
EXAM DESCRIPTION: US - Extremity Nonvascular Limited - 06/04/2020 10:07 am CLINICAL HISTORY: Pain;Swellingabscess drainage 2 weeks earlier COMPARISON: No comparisons TECHNIQUE: Sonographic evaluation of the soft tissues of the left lower abdomen and right labia. FINDINGS: An 8 millimeter area of hypoechoic tissue is present at the prior drainage site left lower abdomen. This may be a small amount of remnant fluid or inflammatory tissue. No walled off collectio n at this site. Right labia region shows heterogeneous hypoechoic tissue. No clearly defined walled off collection. A djacent 10 millimeter and 15 millimeter areas identified. This appears to be more likely edematous/in flammatory tissues than a clearly defined, drainable fluid collection. IMPRESSION: Edematous/inflammatory tissues are present as detailed. No clearly defined walled-off dr ainable collections seen. Follow-up imaging can be performed if the patient continues to have findings suspicious for abscess d evelopment
--- NOTE | 2020-06-04 10:52 | EDPHYS ---
Physician Documentation [facility] Name: Lauren Nolen Age: 64 yrs Sex: Female : 1955 Arrival Date: 06/04/2020 Time: 08:54 Bed 8 Private MD: ED Physician Wesley Daly HPI: 06/04 09:08 This 64 yrs old Black Female presents to ER via Unassigned with complaints of Abscess, kdr Abscess Recheck. 09:08 The patient presents with an abscess of the left lower quadrant and right labia minora, kdr the patient presents with a swollen area of the . Description: raised, swollen, tense, warm. Onset: The symptoms/episode began/occurred The patient has had swollen inferior right inferior labial swelling - likely a Bartholin's cyst. This has been there for about three weeks and she states that she has had it drained about a week ago. She continues to have pain and swelling in this area but is uncertain if it is not getting better. For the past week, she has had swelling to the left lower quadrant. IT is not draining but may be raised and slightly warm. Possible cause(s): unknown. Associated signs and symptoms: The patient has no apparent associated signs or symptoms. Modifying factors: the symptoms are alleviated by nothing, the symptoms are aggravated by nothing. Severity of symptoms: At their worst the symptoms were mild, in the emergency department the symptoms are unchanged. The patient has experienced similar episodes in the past, a few times. The patient has been recently seen by a physician: the patient's primary care provider, Had right labial cyst drained about a week ago. Historical: - Allergies: 09:11 Demerol (Hives, rash); hb - PMHx: 09:11 Diabetes - NIDDM; GERD; Hypertension; hb - PSHx: 09:11 None; hb - Immunization history:: Adult Immunizations up to date. - Social history:: Smoking status: Patient denies any tobacco usage or history of. ROS: 09:08 Constitutional: Negative for fever, chills, and weight loss, Eyes: Negative for injury, kdr pain, redness, and discharge, Neck: Negative for injury, pain, and swelling, Cardiovascular: Negative for chest pain, palpitations, and edema, Respiratory: Negative for shortness of breath, cough, wheezing, and pleuritic chest pain, Abdomen/GI: Negative for abdominal pain, nausea, vomiting, diarrhea, and constipation, Back: Negative for injury and pain, : Negative for injury, bleeding, discharge, and swelling. 09:08 Skin: Positive for abscess, cellulitis, erythema, swelling. Exam: 09:08 Constitutional: This is a well developed, well nourished patient who is awake, alert, kdr and in no acute distress. 09:08 Skin: abscess, that is small, of the left lower quadrant and right labia minora. Vital Signs: 09:04 BP 131 / 88; Pulse 88; Resp 16; Temp 97.2; Pulse Ox 100% on R/A; Weight 88.9 kg; Height hb 5 ft. 6 in. (167.64 cm); Pain 8/10; 10:54 BP 128 / 86; Pulse 84; Resp 16; Pulse Ox 99% on R/A; hb 09:04 Body Mass Index 31.63 (88.90 kg, 167.64 cm) hb MDM: 09:08 Data reviewed: vital signs, nurses notes, radiologic studies. Counseling: I had a kdr detailed discussion with the patient and/or guardian regarding: the historical points, exam findings, and any diagnostic results supporting the discharge/admit diagnosis, radiology results, the need for outpatient follow up. 10:52 Patient medically screened. kdr 06/04 09:07 Order name: US Rosendo Amato [facility] Administered Medications: No medications were administered Disposition: 06/04/20 10:52 Discharged to Home. Impression: Cellulitis of abdominal wall - and right inferior labia. - Condition is Stable. - Discharge Instructions: Cellulitis, Adult, [id number]. - Prescriptions for Doxycycline Hyclate 100 mg Oral Tablet - take 1 tablet by ORAL route every 12 hours; 20 tablet. Tramadol 50 mg Oral Tablet - take 1 tablet by ORAL route every 8 hours as needed; 12 tablet. - Medication Reconciliation Form, Thank You Letter, Antibiotic Education form. - Follow up: Private Physician; When: 2 - 3 days; Reason: If symptoms return, Further diagnostic work-up, Recheck today's complaints, Continuance of care, Re-evaluation by your physician. - Problem is an ongoing problem. - Symptoms are unchanged. Signatures: Dispatcher [employer] EDMS Wesley Daly MD MD kdr Gali Ag, RN RN Corrections: (The following items were deleted from the chart) 11:20 10:52 06/04/2020 10:52 Discharged to Home. Impression: Cellulitis of abdominal wall - hb and right inferior labia. Condition is Stable. Forms are Medication Reconciliation Form, Thank You Letter, Antibiotic Education, Prescription Opioid Use. Follow up: Private Physician; When: 2 - 3 days; Reason: If symptoms return, Further diagnostic work-up, Recheck today's complaints, Continuance of care, Re-evaluation by your physician. Problem is an ongoing problem. Symptoms are unchanged. kdr
--- NOTE | 2020-06-04 10:52 | ER ---
Nurse's Notes [facility] Name: Lauren Nolen Age: 64 yrs Sex: Female : 1955 Arrival Date: 06/04/2020 Time: 08:54 Bed 8 Private MD: Diagnosis: Cellulitis of abdominal wall-and right inferior labia Presentation: 06/04 09:04 Chief complaint: Abscess on lower abdomen x 5 days, abscess on right labia was lanced 2 hb weeks ago, reports residual pain and swelling. Coronavirus screen: At this time, the client does not indicate any symptoms associated with coronavirus-19. Ebola Screen: No symptoms or risks identified at this time. Initial Sepsis Screen: Does the patient meet any 2 criteria? No. Patient's initial sepsis screen is negative. Does the patient have a suspected source of infection? No. Patient's initial sepsis screen is negative. Risk Assessment: Do you want to hurt yourself or someone else? Patient reports no desire to harm self or others. Onset of symptoms was May 21, 2020. 09:04 Method Of Arrival: Ambulatory hb 09:04 Acuity: [place] 4 hb Triage Assessment: 09:11 General: Appears in no apparent distress. Behavior is calm, cooperative. Pain: Pain hb currently is 8 out of 10 on a pain scale. EENT: No signs and/or symptoms were reported regarding the EENT system. Neuro: Level of Consciousness is awake, alert, obeys commands, Oriented to person, place, time, situation. Cardiovascular: Patient's skin is warm and dry. Respiratory: Respiratory effort is even, unlabored, Respiratory pattern is regular, symmetrical. GI: No signs and/or symptoms were reported involving the gastrointestinal system. : No signs and/or symptoms were reported regarding the genitourinary system. Derm: Skin is pink, warm \T\ dry. Abscess located on right labia majora, lower abdomen. Historical: - Allergies: 09:11 Demerol (Hives, rash); hb - PMHx: 09:11 Diabetes - NIDDM; GERD; Hypertension; hb - PSHx: 09:11 None; hb - Immunization history:: Adult Immunizations up to date. - Social history:: Smoking status: Patient denies any tobacco usage or history of. Screenin:24 Abuse screen: Denies threats or abuse. Nutritional screening: No deficits noted. tw2 Tuberculosis screening: No symptoms or risk factors identified. Fall Risk None identified. Assessment: 09:12 General: SEE TRIAGE ASSESSMENT. hb 10:30 Reassessment: Patient appears in no apparent distress at this time. Patient and/or hb family updated on plan of care and expected duration. Pain level reassessed. Patient is alert, oriented x 3, equal unlabored respirations, skin warm/dry/pink. Vital Signs: 09:04 BP 131 / 88; Pulse 88; Resp 16; Temp 97.2; Pulse Ox 100% on R/A; Weight 88.9 kg; Height hb 5 ft. 6 in. (167.64 cm); Pain 8/10; 10:54 BP 128 / 86; Pulse 84; Resp 16; Pulse Ox 99% on R/A; hb 09:04 Body Mass Index 31.63 (88.90 kg, 167.64 cm) hb ED Course: 08:54 Patient arrived in ED. ds1 08:54 Wesley Daly MD is Attending Physician. kdr 09:10 Triage completed. hb 09:11 Arm band placed on. hb 09:12 Patient has correct armband on for positive identification. Bed in low position. Call hb light in reach. Side rails up X 1. 09:24 Briana Choudhary, RN is Primary Nurse. tw2 10:07 Extrmty Nonvasular Limited In Process Unspecified. EDMS 11:18 No provider procedures requiring assistance completed. Patient did not have IV access hb during this emergency room visit. Administered Medications: No medications were administered Outcome: 10:52 Discharge ordered by . kdr 11:18 Discharged to home via wheelchair. hb 11:18 Condition: stable 11:18 Discharge instructions given to patient, Instructed on discharge instructions, follow up and referral plans. medication usage, wound care, Demonstrated understanding of instructions, follow-up care, medications, Prescriptions given X 2. 11:20 Patient left the ED. hb Signatures: Dispatcher [employer] EDMS Wesley Daly MD MD [facility] Maria Garcia ds1 Gali Ag, RN RN Briana Choudhary RN RN tw2
[2020-06-08 10:46] VITALS: TEMP 97.2
[2020-06-08 10:47] VITALS: BP 128/86; O2SAT 99
== END 2020-06-04 11:20 | disposition home or self-care (01) ==
LOC: ER 08:52
DX: L03.311 Cellulitis of abdominal wall (principal); N76.2 Acute vulvitis; I10 Essential (primary) hypertension; Z88.5 Allergy status to narcotic agent
CPT/HCPCS: 76882; 99283

== ENCOUNTER 2020-12-01 09:05 | Day surgery (SDC) | payer OTHER ==
[2020-12-01] MEDS ORDERED: NA CHLORIDE 0.9% 1,000 ML ONE (09:49)
[2020-12-01] MEDS ORDERED: propofoL 200 MG/20 ML VIAL IV ONE ×2 (10:48→11:35)
[2020-12-01] MEDS ORDERED: GLYCOPYRROLATE 0.2 MG/ML SYR ONE (10:50)
[2020-12-01] MEDS ORDERED: LIDOCAINE 1% MPF 30 ML VIAL ONE (10:50)
[2020-12-01 12:03] VITALS: O2SAT 100
[2020-12-01 12:10] VITALS: TEMP 96.5
[2020-12-01 13:02] VITALS: BP 112/89
== END 2020-12-01 12:20 | disposition home or self-care (01) ==
LOC: OR 09:05
PROVIDERS: ATTEND Surgery
PROC: 0DBB8ZX Excision of Ileum, Via Natural or Artificial Opening Endoscopic, Diagnostic (ICD-10-PCS; 2020-12-01)
PROC: 0DBN8ZX Excision of Sigmoid Colon, Via Natural or Artificial Opening Endoscopic, Diagnostic (ICD-10-PCS; principal; 2020-12-01 10:45)
DX: Z12.11 Encounter for screening for malignant neoplasm of colon (principal); D12.5 Benign neoplasm of sigmoid colon; K57.30 Diverticulosis of large intestine without perforation or abscess without bleeding; Z20.822 Contact with and (suspected) exposure to COVID-19
CPT/HCPCS: 82947; 88305 ×2; 45385; 45380; U0002; J2704 ×2; J7030; 88312

== ENCOUNTER 2021-09-13 15:39 | Emergency (ER) | payer OTHER ==
--- OUTSIDE RECORDS SUMMARY | 2021-09-13 15:43 | XMS REPORT | Continuity of Care Document ---
:1955 Author Organization [facility] t Address [address] [place] [address] [address]. [address] [place] [address] Care Team Providers Name Role Phone LOUIE ALATORRE Primary Care Physician Unavailable Trice DEE.H. Attending Clinician Unavailable ARISTIDES Attending Clinician Unavailable Rnoald LINK Attending Clinician JEFFREY Attending Clinician Unavailable Jr LINK, K.H. Attending Clinician Mark LINK, R Attending Clinician Leti Ayers MD Attending Clinician Attending Clinician Unavailable ARISTIDES Admitting Clinician Unavailable JEFFREY Admitting Clinician Unavailable Admitting Clinician Unavailable Payers Payer Name Policy Type Policy Number Effective Date Expiration Date S brent [employer]/[facility] DUAL [id number] 2020 COMP HMO D SNP 00:00:00 [place]ID OF [place] [id number] 2019 00:00:00 Problems Condition Condition Condition Status Onset Resolution Last Treating Co mments Source Name Details Category Date Date Treatment Clinician Date Uncontroll Uncontroll Disease Active U nivers ed type 2 ed type 2 6-08 ity of diabetes diabetes 00:00: [place] mellitus mellitus 00 Medica l with with Branch hyperglyce hyperglyce francis francis Acquired Acquired Disease Active Unive rs hypothyroi hypothyroi 6-08 it y of dism dism 00:00: [place] [facility] Rectal Rectal Disease Active Univers bleeding bleeding 1-09 ity of 00:00: [place] 00 Medical Branch Type 2 Type 2 Disease Active Univers diabetes diabetes 1-06 ity of mellitus mellitus 00:00: [place] without without 00 Medical complicati complicati Br anch on, on, without without long-term long-term current current use of use of insulin insulin Hyperglyce Hyperglyce Disease Active U nivers francis francis 1-06 ity of 00:00: [place] [facility] Other Other Disease Active 2019-10 Univers general general 1-30 ity of counseling counseling 00:[place] and advice and advice 00 Me dical for for Branch contracept contracept hope hope management management Controlled Controlled Disease Active 2019-10 U nivers diabetes diabetes 30 ity of mellitus mellitus 00:00: [place] type 2 type 2 00 Medical with with Branch complicati complicati ons, ons, unspecifie unspecifie d whether d whether long term care administrator long term care administrator insulin insulin use use Fatigue Fatigue Disease Active 2019-10 Univers 1-24 ity of 00:00: [place] [facility] Low BP Low BP Disease Active 2019-10 Univers 1-24 ity of 00:00: [place] [facility] STEPHEN (acute STEPHEN (acute Disease Active 2019-10 U nivers kidney kidney 1-24 ity of injury) injury) 00:00: [place] [facility] Nuclear Nuclear Disease Active 2019-10 Overview: Univ ers senile senile 1-18 Formattin ity of cataract cataract 00:00: g of this [place] as of both of both 00 note Medical eyes eyes might be Branch different from the original. 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 Added automatic ally from request for surgery [id number] Symptomati Symptomati Disease Active Overview : Univers c c 6-14 Formattin ity of cholelithi cholelithi 00:00: g of this [place] asis asis 00 note Medical might be Branch different from the original. Added automatic ally from request for surgery [id number] Chest pain Chest pain Disease Active 2017-10 U nivers 11-04 ity of 00:00: [place] 00 Medical Branch Coronary Coronary Disease Active 2017-10 Unive rs artery artery 11-04 ity of disease disease 00:00: [place] involving involving 00 Medi jayne soboba soboba Branch coronary coronary artery of artery of soboba soboba heart with heart with angina angina pectoris pectoris Abnormal Abnormal Disease Active 2017-10 Unive rs serum serum 11-04 ity of level of level of 00:00: [place] lipase lipase 00 Medical Branch Calculus Calculus Disease Active 2017-10 Unive rs of of 11-04 ity of gallbladde gallbladde 00:00: [place] r without r without 00 Medi jayne cholecysti cholecysti Br anch tis tis without without obstructio obstructio n n Liver Liver Disease Active 2017-10 Univers lesion lesion 11-04 ity of 00:00: [place] 00 Medical Branch Abnormal Abnormal Disease Active 2017-10 Unive rs nuclear nuclear 1-03 ity of stress stress 00:00: [place] test test 00 Medical Branch Essential Essential Disease Active 2017-10 Uni vers hypertensi hypertensi 10-08 it y of on on 00:00: [place] 00 Medical Branch Dyslipidem Dyslipidem Disease Active 2017-10 U nivers ia ia 1- ity of 00:00: [place] 00 Medical Branch Atypical Atypical Disease Active 2017-10 Unive rs chest pain chest pain 0-31 it y of 00:00: [place] 00 Medical Branch Obesity Obesity Disease Active Univers (BMI (BMI 6-20 ity of 30-39.9) 30-39.9) 00:00: [place] 00 Medical Branch Allergies, Adverse Reactions, Alerts Allergy Allergy Status Severity Reaction(s) Onset Inactive Treating Comm ents Source Name Type Date Date Clinician Yan Propensi Active Hives 2014-10 Univer s ne Hcl ty to 10-08 ity of adverse 00:00: [place] reaction 00 Medical s Branch MEPERIDI DRUG Active Hives 2014-10 Univers NE HCL INGREDI 10-08 ity of 00:00: [place] 00 Medical Branch Social History Social Habit Start Date Stop Date Quantity Comments Source History of Smoker University of tobacco use [facility] Exposure to Not sure [place] of SARS-CoV-2 [facility] (event) [place] Alcohol intake 2021-08-02 2021-08-02 Ex-drinker [facility] 00:00:00 00:00:00 (finding) [facility] Education 2020-10-16 2020-10-16 10 [place] of 00:00:00 00:00:00 [facility] Tobacco Comment 2020-10-16 2020-10-16 N/A Universit y of 00:00:00 00:00:00 [facility] Tobacco use and 2020-04-25 2020-04-25 Never used Universit y of exposure 00:00:00 00:00:00 [place] [facility] History SDOH 2020-02-25 2020-02-25 5 University o f Financial 00:00:00 00:00:00 [place] [facility] History SDOH Food 2020-02-25 2020-02-25 1 Univers ity of Worry 00:00:00 00:00:00 [place] [facility] History SDOH Food 2020-02-25 2020-02-25 1 Univers ity of Scarcity 00:00:00 00:00:00 [place] [facility] History SDOH 2020-02-25 2020-02-25 2 University o f Transport Med 00:00:00 00:00:00 [facility] Branch History SDOH 2020-02-25 2020-02-25 2 University o f Transport Non-Med 00:00:00 00:00:00 [facility] Sex [birth year] Universit y of 00:00:00 00:00:00 [facility] Smoking Status Start Date Stop Date Source Former smoker 2020-04-25 00:00:00 2020-04-25 00:00:00 Universi ty of [facility] Medications Ordered Filled Start Stop Current Ordering Indication Dosage Frequency Signature Comments Components Source Medication Medication Date Date Medication? Clinician (SIG) Name Name LEONARDO 2020-10 Yes [id number] INJECT 20 U nivers SOLOSTAR 1-18 UNITS ity of U-100 00:00: SUBCUTANEO [place] INSULIN 100 00 USLY IN Medic al unit/mL (3 THE Branch mL) MORNING injection AND EVENING ezetimibe 2020-10 Yes [id number] 10mg Take 1 U nivers 10 mg 0-26 tablet by ity of tablet 00:00: mouth [place] 00 daily. Medical Branch amLODIPine 2020-10 Yes [id number] 5mg Take 1 Univers 5 mg tablet 0-26 tablet by ity of 00:00: mouth [place] 00 daily. Medical Branch isosorbide 2020-10 Yes [id number] 60mg Take 1 Univers mononitrate 0-26 tablet by ity of 60 mg 24 hr 00:00: mouth 2 [place] as tablet 00 (two) Medical times Branch daily. nitroglycer 2020-[id number] 1 Univers in 0.4 mg 0-26 tablet ity of sublingual 00:00: [place] the [place] tablet 00 tongue Medical every 5 Branch (five) minutes as needed for Chest pain. DULoxetine 2020-10 Yes [id number] 30mg Take 1 Univers 30 mg 0-22 capsule by ity of capsule 00:00: mouth 2 [place] 00 (two) Medical times Branch daily. losartan 50 2020-10 Yes 50mg Take 1 Univ ers mg tablet 0-19 tablet by ity o f 00:00: mouth 2 [place] 00 (two) Medical times Branch daily. Please have lab done. benzonatate 2020-10 Yes [id number] 100mg Take 1 Univers 100 mg 0-13 capsule by ity of capsule 00:00: mouth 3 [place] 00 (three) Medical times Branch daily as needed for Cough. fluticasone 2020-10 Yes [id number] 1{spray Use 1 Univers propionate 0-13 } [place] in ity o f 50 00:00: each [place] mcg/actuati 00 nostril Medic al on nasal daily. Branch spray DULoxetine Yes [id number] 40mg Take 40 mg Univers 40 mg CpDR 9-20 by mouth 2 ity of 00:00: (two) [place] 00 times Medical daily. Branch SPIRONOLACT Yes TAKE 1 Univ ers ONE 25 mg 9-16 TABLET BY ity o f tablet 00:00: MOUTH ONCE [place] 00 DAILY Medical Branch LEVOTHYROXI Yes [id number] 50ug TAKE 1 Univers NE 50 mcg 9-01 TABLET BY ity o f tablet 00:00: MOUTH [place] 00 EVERY Medical MORNING Branch bromphenira Yes [id number] 5mL Take 5 mL Univers mine-pseudo 8-13 by mouth 4 it y of ephedrine-D 00:00: (four) [place] M (BROMFED 00 times Medical DM) 2-30-10 daily as Bran ch mg/5 mL needed for syrup Congestion /Allergies . benzonatate Yes [id number] 100mg Take 1 Univers 100 mg 8-13 capsule by ity of capsule 00:00: mouth 3 [place] 00 (three) Medical times Branch daily as needed for Cough. albuterol Yes [id number] 2{puff} Inhale 2 Univers 90 8-13 Puffs ity of mcg/actuati 00:00: every 4 [place] as on inhaler 00 (four) Medical hours as Branch needed for Wheezing or Shortness of Breath. LANTUS 2020- No [id number] INJECT 20 Univers SOLOSTAR 7-14 11-18 UNITS ity of U-100 00:00: 00:00 SUBCUTANEO [place] INSULIN 100 00 :00 USLY EVERY Me dical unit/mL (3 MORNING Branch mL) AND injection EVENING CARVEDILOL Yes TAKE 1 Unive rs 25 mg 6-22 TABLET BY ity of tablet 00:00: MOUTH [place] 00 TWICE Medical DAILY WITH Branch MEALS insulin Yes [id number] 80 units U nivers regular hum 6-08 with ity of U-500 conc 00:00: breakfast, [place] 500 unit/mL 00 90 units Medi jayne (3 mL) InPn with lunch Br anch and 90 units with dinner E11.65 dulaglutide Yes [id number] 1.5mg inject 1.5 Univers (TRULICITY) 6-08 mg under ity of 1.5 mg/0.5 00:00: the skin [place] as mL PnIj 00 weekly. Medical Branch ATORVASTATI Yes [id number] 80mg TAKE 1 Univers N 80 mg 5-21 TABLET BY ity of tablet 00:00: MOUTH AT [place] 00 BEDTIME Medical Branch pregabalin 2019- Yes [id number] 75mg Take 1 Univers (LYRICA) 75 0-28 capsule by it y of mg capsule 00:00: mouth 2 [place] 00 (two) Medical times Branch daily. multivitami Yes [id number] 1{capsu Take 1 Univers n capsule 9-10 le} capsule by ity of 00:00: mouth [place] 00 daily. Medical Branch calcium-mag Yes [id number] Take as Univers nesium-zinc 9-10 directed ity of 333-133-8.3 00:00: for daily [place] mg Tab 00 dose. Medical Branch esomeprazol Yes Univer s e 40 mg 4-22 ity of capsule 00:00: [place] 00 Medical Branch ondansetron Yes [id number] 4mg Take 1 Univers 4 mg 2-10 tablet by ity of disintegrat 00:00: mouth [place] ing tablet 00 every 8 Medica l (eight) Branch hours as needed for Nausea and Vomiting (N/V). lancets 30 2017-10 Yes USE TO Unive rs gauge Misc 1-30 TEST BLOOD ity of 00:00: GLUCOSE [place] 00 [facility] Medical TIMES Branch DAILY ACCU-CHEK 2017-10 Yes USE TO Univer s SMARTVIEW 1-30 TEST BLOOD ity of TEST STRIP 00:00[facility] Medical TIMES [place] DAILY 90 EASY TOUCH 2017-10 Yes USE TO Unive rs ALCOHOL 1-30 TEST BLOOD ity of PREP PADS 00:00: GLUCOSE [place] PadM [facility] Medical TIMES Branch DAILY 90 Immunizations Ordered Filled Immunization Date Status Comments Sour e Immunization Name Name Influenza Virus 2020-08-23 Completed Universit y of Vaccine Quad .5 mL 00:00:00 [place] Medical IM 6+ MO Branch Pneumococcal 2018-09-04 Completed University o f Polysaccharide, 00:00:00 [place] Med ical PPSV23 (PNEUMOVAX) Branch Influenza Virus 2018-09-04 Completed Universit y of Vaccine Quad .5 mL 00:00:00 [facility] IM 6+ MO Branch Procedures This patient has no known procedures. Encounters Start End Encounter Admission Attending Care Care Encounter Source Date/Time Date/Time Type Type Clinicians Facility Department ID 2021-09-15 2021-09-15 Outpatient Anthony DEE [facility] [id number] Univers 10:00:00 10:00:00 CONNIE valdivia [facility] [place] [facility] 2021-09-09 2021-09-09 Outpatient SHANITA_JO MEHOP [facility] [id number] 05:02:00 05:02:00 HN [id number] [facility] 2021-08-22 2021-08-22 Damian Cardenas PRDRAKE [id number] Univers 00:00:00 00:00:00 [facility] [id number] i fermín [facility] [id number] Meghann CHILDERS [id number] [address] 2021-01-18 2021-01-18 Outpatient GUU_SHENG_Y [facility] [address] 03:31:00 03:31:00 [place] [id number] [facility] 2021-01-16 2021-01-16 Outpatient GUU_SHENG_Y [facility] [address] 03:17:00 03:17:[place] [id number] [facility] 2021-01-16 2021-01-16 Outpatient GUU_SHENG_Y [facility] [address] 03:17:00 03:17:00 [place] [id number] [facility] 2020-12-15 2020-12-15 Outpatient GUU_SHENG_Y [facility] [address] 04:24:00 04:24:[place] [id number] [facility] 2020-11-25 2020-11-25 Damian Cardenas PRDRAKE [id number] 00:00:00 00:00:00 [place] [id number] [place] [id number] Professio [id number] [address] 2020-11-25 2020-11-25 Damian Dee PRDRAKE [id number] 00:00:00 00:00:00 Connie TriceAndreasTimAndreas Abraham [id number] [place] [id number] Professio [phone] [facility] 2020-11-25 2020-11-25 Telephone Vinod Flores [facility] [id number] 00:00:00 00:00:00 R Y [id number] [facility] [id number] [facility] [phone] [address]LDG. 136 2020-11-11 2020-11-11 Office Armen [facility] [id number] 09:07:13 15:23:52 Visit [facility] [id number] [facility] [id number] YANG [id number] [id number] 2019-11-17 2019-11-17 Emergency X [facility] ERT [id number] Univers 08:46:19 10:19:00 MARJORIE valdivia of [facility] Results This patient has no known results.
[2021-09-13 16:32] LABS: Absolute Lymphocytes (CBC) 2.4 K/uL (0.7-4.9); Basophils % 1.2 % (0-1.3); Hematocrit 38.1 % (36.0-45.0); Lymphocytes % 35.3 % (15.3-44.8); MPV 8.1 fL (7.6-11.3); RBC Red Blood Cell Count 4.14 M/uL (3.86-4.86)
[2021-09-13 16:57] LABS: BUN Blood Urea Nitrogen 38 mg/dL (7-18); Bicarbonate 25 mmol/L (21-32); Potassium 5.5 mmol/L (3.5-5.1); Sodium Level 139 mmol/L (136-145)
[2021-09-13 17:00] LABS: Glucose Level 403 mg/dL (74-106)
[2021-09-13] MEDS ORDERED: INSULIN -REGULAR HUMAN 50 UNIT/0.5 ML ML ONE (17:13)
[2021-09-13] MEDS ORDERED: NA CHLORIDE 0.9% 1,000 ML ONE (17:28)
[2021-09-13 17:48] LABS: Urine Blood Negative (Negative); Urine Glucose 3+ (Negative); Urine Protein Negative (Negative); Urine Specific Gravity 1.015 (1.005-1.030); Urine pH 6.5 (5.0-7.0)
--- NOTE | 2021-09-13 18:38 | EDPHYS ---
Physician Documentation [facility] Name: Lauren Nolen Age: 66 yrs Sex: Female : 1955 Arrival Date: 09/13/2021 Time: 15:40 Bed DIS2 Private MD: ED Physician Gavin Felipe HPI: 09/13 17:07 This 66 yrs old Black Female presents to ER via EMS with complaints of High Blood Sugar.jr8 17:07 This is a 66-year-old female patient that was brought into the emergency room for jr8 further evaluation for high blood sugar. Patient stated that she had been feeling fatigued over the past couple days. Sugar was reading high at home and for EMS. IV was started and fluids were given prior to arrival. Patient denies any other symptoms at this time.. Historical: - Allergies: 16:29 Demerol (Hives, rash); iw - PMHx: 16:29 GERD; Hypertension; Diabetes mellitus; iw ROS: 17:07 Eyes: Negative for injury, pain, redness, and discharge, ENT: Negative for injury, jr8 pain, and discharge, Neck: Negative for injury, pain, and swelling, Cardiovascular: Negative for chest pain, palpitations, and edema, Respiratory: Negative for shortness of breath, cough, wheezing, and pleuritic chest pain, Abdomen/GI: Negative for abdominal pain, nausea, vomiting, diarrhea, and constipation, Back: Negative for injury and pain, MS/Extremity: Negative for injury and deformity, Skin: Negative for injury, rash, and discoloration, Neuro: Negative for headache, weakness, numbness, tingling, and seizure. 17:07 Constitutional: Positive for fatigue, malaise. Exam: 17:07 Constitutional: This is a well developed, well nourished patient who is awake, alert, jr8 and in no acute distress. Neck: Trachea midline, no thyromegaly or masses palpated, and no cervical lymphadenopathy. Supple, full range of motion without nuchal rigidity, or vertebral point tenderness. No Meningismus. Cardiovascular: Regular rate and rhythm with a normal S1 and S2. No gallops, murmurs, or rubs. Normal PMI, no JVD. No pulse deficits. Respiratory: Lungs have equal breath sounds bilaterally, clear to auscultation and percussion. No rales, rhonchi or wheezes noted. No increased work of breathing, no retractions or nasal flaring. Abdomen/GI: Soft, non-tender, with normal bowel sounds. No distension or tympany. No guarding or rebound. No evidence of tenderness throughout. Skin: Warm, dry with normal turgor. Normal color with no rashes, no lesions, and no evidence of cellulitis. MS/ Extremity: Pulses equal, no cyanosis. Neurovascular intact. Full, normal range of motion. Neuro: Awake and alert, GCS 15, oriented to person, place, time, and situation. Cranial nerves II-XII grossly intact. Motor strength 5/5 in all extremities. Sensory grossly intact. Vital Signs: 16:26 BP 140 / 90; Pulse 61; Resp 18; Temp 98.0; Pulse Ox 98% on R/A; iw MDM: 15:43 Patient medically screened. [facility] 18:37 Data reviewed: vital signs, nurses notes, lab test result(s), and as a result, I will [facility] discharge patient. Data interpreted: Pulse oximetry: on room air is 98 %. Interpretation: normal. Counseling: I had a detailed discussion with the patient and/or guardian regarding: the historical points, exam findings, and any diagnostic results supporting the discharge/admit diagnosis, lab results, the need for outpatient follow up, a family practitioner, to return to the emergency department if symptoms worsen or persist or if there are any questions or concerns that arise at home. Response to treatment: the patient's symptoms have markedly improved after treatment, patient is well hydrated. 09/13 15:43 Order name: CBC with Diff; Complete Time: 16:54 [facility] 09/13 15:43 Order name: Basic Metabolic Panel; Complete Time: 17:08 [facility] 09/13 15:43 Order name: Ketone, Serum; Complete Time: 17:08 [facility] 09/13 16:12 Order name: Glucose, Ancillary Testing; Complete Time: 16:22 [facility] 09/13 16:12 Order name: Glucose, Ancillary Testing [facility] 09/13 17:48 Order name: Urine Dipstick-Ancillary; Complete Time: 18:00 [facility] 09/13 15:43 Order name: Urine Dipstick-Ancillary (obtain specimen); Complete Time: 17:05 [facility] 09/13 15:43 Order name: Glucose Level; Complete Time: 16:01 jr8 09/13 18:39 Order name: Glucose, Ancillary Testing; Complete Time: 18:51 EDMS Administered Medications: 17:30 Drug: NS 0.9% 1000 ml Route: IV; Rate: 1000 ml; Site: left hand; Point of Care Testing: Blood Glucose: 18:29 Blood Glucose: 227 mg/dL; Ranges: Critical Glucose Levels:Adult <50 mg/dl or >400 mg/dl <40 mg/dl or >180 mg/dl Disposition: 09/14 10:32 Co-signature as Attending Physician, Gavin Felipe MD I agree with the assessment and kristen plan of care. Disposition Summary: 09/13/21 18:38 Discharge Ordered Location: Home jr8 Problem: new jr8 Symptoms: have improved jr8 Condition: Stable jr8 Diagnosis - Hyperglycemia, unspecified jr8 - Hyperkalemia jr8 Followup: jr8 - With: Private Physician - When: 1 - 2 days - Reason: Recheck today's complaints, Continuance of care, Re-evaluation by your physician Discharge Instructions: - Discharge Summary Sheet jr8 - Hyperglycemia jr8 - Hyperkalemia jr8 - Blood Glucose Monitoring, Adult jr8 Forms: - Medication Reconciliation Form jr8 - Thank You Letter jr8 - Antibiotic Education jr8 - Prescription Opioid Use jr8 Signatures: Dispatcher [employer] Gavin Foley MD MD cha Williams, Irene, RN RN iw Sergo Zambrano PA PA jr8 Corrections: (The following items were deleted from the chart) 09/13 16:29 16:29 PMHx: Diabetes - NIDDM; [facility]
--- NOTE | 2021-09-13 18:38 | ER ---
Nurse's Notes [facility] Name: Lauren Nolen Age: 66 yrs Sex: Female : 1955 Arrival Date: 09/13/2021 Time: 15:40 Bed DIS2 Private MD: Diagnosis: Hyperglycemia, unspecified;Hyperkalemia Presentation: 09/13 16:11 Onset of symptoms was September 13, 2021. iw 16:11 Acuity: [place] 3 iw 16:12 Chief complaint: EMS states: sister called EMS bc pt's blood sugar been running high, iw was unsure what meds she is taking. 16:12 Method Of Arrival: EMS: [facility] iw 16:46 Coronavirus screen: At this time, the client does not indicate any symptoms associated iw with coronavirus-19. Ebola Screen: Patient negative for fever greater than or equal to 101.5 degrees Fahrenheit, and additional compatible Ebola Virus Disease symptoms Patient denies exposure to infectious person. Patient denies travel to an Ebola-affected area in the 21 days before illness onset. No symptoms or risks identified at this time. Initial Sepsis Screen: Does the patient meet any 2 criteria? No. Patient's initial sepsis screen is negative. Does the patient have a suspected source of infection? No. Patient's initial sepsis screen is negative. Risk Assessment: Do you want to hurt yourself or someone else? Patient reports no desire to harm self or others. Historical: - Allergies: 16:29 Demerol (Hives, rash); iw - PMHx: 16:29 GERD; Hypertension; Diabetes mellitus; iw Screenin:07 Abuse screen: Denies threats or abuse. Denies injuries from another. Nutritional iw screening: No deficits noted. Tuberculosis screening: No symptoms or risk factors identified. Fall Risk IV access (20 points). Assessment: 17:06 General: Appears in no apparent distress. Behavior is cooperative. Pain: Complains of iw pain in right leg and left leg. Neuro: Level of Consciousness is awake, alert, obeys commands, Oriented to person, place, time, Moves all extremities. Cardiovascular: Patient's skin is warm and dry. Respiratory: Respiratory effort is even, unlabored, Respiratory pattern is regular. Derm: Skin is fragile, is thin, Skin is normal. Musculoskeletal: Range of motion: intact in all extremities. Vital Signs: 16:26 BP 140 / 90; Pulse 61; Resp 18; Temp 98.0; Pulse Ox 98% on R/A; iw ED Course: 15:40 Patient arrived in ED. iw 15:42 Sergo Zambrano PA is PHCP. jr8 15:42 Gavin Felipe MD is Attending Physician. jr8 15:45 Yvette Singer RN is Primary Nurse. iw 16:12 Triage completed. iw 16:15 Inserted saline lock: 22 gauge in right hand, using aseptic technique. Blood collected. iw Administered Medications: 17:30 Drug: NS 0.9% 1000 ml Route: IV; Rate: 1000 ml; Site: left hand; iw Point of Care Testing: Blood Glucose: 18:29 Blood Glucose: 227 mg/dL; iw Ranges: Outcome: 18:38 Discharge ordered by . jr8 18:57 Patient left the ED. iw Signatures: Yvette Singer RN RN iw Sergo Zambrano PA PA jr8 Corrections: (The following items were deleted from the chart) 16: 16:29 PMHx: Diabetes - NIDDM; iw iw
[2021-09-13 19:06] VITALS: BP 140/90; TEMP 98; O2SAT 98
== END 2021-09-13 18:57 | disposition home or self-care (01) ==
LOC: ER 15:39
DX: E11.65 Type 2 diabetes mellitus with hyperglycemia (principal); E87.5 Hyperkalemia; I10 Essential (primary) hypertension; Z88.5 Allergy status to narcotic agent
CPT/HCPCS: 85025; 80048; 36415; 82010; 82947 ×2; 81003; 99284; J7030

== ENCOUNTER 2022-02-10 21:09 | Observation (INO) | payer OTHER ==
--- OUTSIDE RECORDS SUMMARY | 2022-02-10 21:15 | XMS REPORT | Continuity of Care Document ---
:1955 Author Organization [facility] t Address [address] [place] [address] Dr. Holman. [address] [place] [address] Care Team Providers Name Role Phone Trish López Primary Care Physician SHAHID Attending Clinician Unavailable Emre Rodriguez MD Attending Clinician EMRE RODRIGUEZ Attending Clinician Unavailable EMRE RODRIGUEZ Attending Clinician Unavailable Jr LINK, K.H. Attending Clinician Shahid LINK Attending Clinician Kathy DUONG Attending Clinician Unavailable Ignacio LUNDY Attending Clinician Unavailable Christiano MAYS, G Attending Clinician Steven WATSON Attending Clinician Doctor Unassigned, Name Attending Clinician Unavailable ARISTIDES Attending Clinician Unavailable MARIELLA_CHAD_ALEXEY Attending Clinician Unavailable Mark LINK, R Attending Clinician Armen LINK, Leti Attending Clinician ARISTIDES Admitting Clinician Unavailable MARIELLA_CHAD_ALEXEY Admitting Clinician Unavailable Payers Payer Name Policy Type Policy Number Effective Date Expiration Date Jenifer hadleyyadira [facility] DUAL [id number] 2020 COMP HMO D SNP 00:00:00 MEDICAID OF [place] [id number] 2019 00:00:00 Problems Condition Condition Condition Status Onset Resolution Last Treating Co mments Source Name Details Category Date Date Treatment Clinician Date Uncontroll Uncontroll Disease Active N PI:183 ed type 2 ed type 2 03-15 1318 781 diabetes diabetes 00:00: mellitus mellitus 00 with with hyperglyce hyperglyce francis francis Acquired Acquired Disease Active NPI:1 83 hypothyroi hypothyroi 03-15 30266 dism dism 00:00: 00 Rectal Rectal Disease Active NPI:183 bleeding bleeding 10-16 [id number] 1 00:00: 00 Type 2 Type 2 Disease Active NPI:183 diabetes diabetes 10-13 [id number] 1 mellitus mellitus 00:00: without without 00 complicati complicati on, on, without without long-term long-term current current use of use of insulin insulin Hyperglyce Hyperglyce Disease Active N PI:183 francis blanco 10-13 [id number] 00:00: 00 Other Other Disease Active 2019-10 NPI:183 general general 11-06 [id number] counseling counseling 00:00: and advice and advice 00 for for contracept contracept hope hope management management Controlled Controlled Disease Active 2019-10 N PI:183 diabetes diabetes 11-06 [id number] 1 mellitus mellitus 00:00: type 2 type 2 00 with with complicati complicati ons, ons, unspecifie unspecifie d whether d 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 Added automatic ally from request for surgery [id number] Symptomati Symptomati Disease Active Overview : NPI:183 c c 6-14 Formattin [id number] cholelithi cholelithi 00:00: g of this asis asis 00 note might be different from the original. Added automatic ally from request for surgery [id number] Chest pain Chest pain Disease Active 2017-10 N PI:183 11-04 [id number] 00:00: 00 Coronary Coronary Disease Active 2017-10 NPI:1 83 artery artery 11-04 [id number] disease disease 00:00: involving involving 00 [place] coronary coronary artery of artery of [place] heart with heart with angina angina pectoris pectoris Abnormal Abnormal Disease Active 2017-10 NPI:1 83 serum serum 11-04 [id number] level of level of 00:00: lipase lipase 00 Calculus Calculus Disease Active 2017-10 NPI:1 83 of of 11-04 [id number] gallbladde gallbladde 00:00: r without r without 00 cholecysti cholecysti tis tis without without obstructio obstructio n n Liver Liver Disease Active 2017-10 NPI:183 lesion lesion 11-04 [id number] 00:00: 00 Abnormal Abnormal Disease Active 2017-10 NPI:1 83 nuclear nuclear 10-10 9976789 stress stress 00:00: test test 00 Essential Essential Disease Active 2017-10 NPI :183 hypertensi hypertensi 10-08 90765 on on 00:00: 00 Dyslipidem Dyslipidem Disease Active 2017-10 N PI:183 ia ia 10-08 [id number] 00:00: 00 Atypical Atypical Disease Active 2017-10 NPI:1 83 chest pain chest pain 0-31 41867 00:00: 00 Obesity Obesity Disease Active NPI:183 (BMI (BMI 6-20 [id number] 30-39.9) 30-39.9) 00:00: 00 Allergies, Adverse Reactions, Alerts Allergy Allergy Status Severity Reaction(s) Onset Inactive Treating Comm ents Source Name Type Date Date Clinician MEPERIDI DRUG Active Hives 2014-10 NPI:183 NE HCL INGREDI 10-08 [id number] 00:00: 00 Meperidi Propensi Active Hives 2014-10 NPI:18 3 ne Hcl ty to 10-08 [id number] adverse 00:00: reaction 00 s Social History Social Habit Start Date Stop Date Quantity Comments Source History of tobacco Smoker NPI:18 [id number] use Exposure to Not sure NPI:[id number] 1 SARS-CoV-2 (event) Alcohol intake 2021-12-24 2021-12-24 Ex-drinker NPI:[id number] 00:00:00 00:00:00 (finding) Education 2020-10-16 2020-10-16 10 00:00:00 00:00:00 Tobacco Comment 2020-10-16 2020-10-16 N/A NPI:[id number] 00:00:00 00:00:00 Tobacco use and 2020-04-25 2020-04-25 Never used NPI:[id number] 03584 exposure 00:00:00 00:00:00 History [facility] 2020-02-25 2020-02-25 5 NPI:[id number] Financial 00:00:00 00:00:00 History [facility] Food 2020-02-25 2020-02-25 1 NPI:290 [id number] Worry 00:00:00 00:00:00 History [facility] Food 2020-02-25 2020-02-25 1 NPI:664 [id number] Scarcity 00:00:00 00:00:00 History SDDC 2020-02-25 2020-02-25 2 NPI:[id number] Transport Med 00:00:00 00:00:00 History SDDC 2020-02-25 2020-02-25 2 NPI:[id number] 81 Transport Non-Med 00:00:00 00:00:00 [birth year] NPI:[id number] 00:00:00 00:00:00 Smoking Status Start Date Stop Date Source Former smoker 2020-04-25 00:00:00 2020-04-25 00:00:00 NPI:1831 [id number] Medications Ordered Filled Start Stop Current Ordering Indication Dosage Frequency Signature Comments Components Source Medication Medication Date Date Medication? Clinician (SIG) Name Name DULoxetine Yes [id number] 40mg Take 40 mg NPI:183 40 mg CpDR 5-04 by mouth 2 131 8781 00:00: (two) 00 times daily. DULoxetine Yes [id number] 40mg Take 40 mg NPI:183 40 mg CpDR 5-04 by mouth 2 131 8781 00:00: (two) 00 times daily. ATORVASTATI Yes [id number] 80mg TAKE 1 NPI:183 N 80 mg 4-14 TABLET BY [id number] tablet 00:00: MOUTH AT 00 BEDTIME ATORVASTATI 2021-0 Yes [id number] 80mg TAKE 1 NPI:183 N 80 mg 4-14 TABLET BY [id number] tablet 00:00: MOUTH AT 00 BEDTIME ATORVASTATI 2021-0 Yes [id number] 80mg TAKE 1 NPI:183 N 80 mg 4-14 TABLET BY [id number] tablet 00:00: MOUTH AT 00 BEDTIME traMADoL 2021-0 2021- No 50mg 50 mg, NPI:18 3 (ULTRAM) 3-20 03-20 Oral, [id number] tablet 50 03:30: 03:13 ONCE, 1 mg 00 :00 dose, On 12/24/21 at 2230, Routine traZODone 0 2021- Yes [id number] 50mg Take 1 NPI:183 50 mg - 03-27 105 tablet by [id number] tablet 00:00: 04:59 mouth at 00 :00 bedtime for 7 days. isosorbide 2021-0 Yes [id number] 60mg Take 1 NPI:183 mononitrate 3-07 tablet by 131 8781 60 mg 24 hr 00:00: mouth 2 tablet 00 (two) times daily. isosorbide 2021-0 Yes [id number] 60mg Take 1 NPI:183 mononitrate 3-07 tablet by 131 8781 60 mg 24 hr 00:00: mouth 2 tablet 00 (two) times daily. isosorbide 2021-0 Yes [id number] 60mg Take 1 NPI:183 mononitrate 3-07 tablet by 131 8781 60 mg 24 hr 00:00: mouth 2 tablet 00 (two) times daily. isosorbide 2022-0 Yes [id number] 60mg Take 1 NPI:183 mononitrate 3-07 tablet by 131 8781 60 mg 24 hr 00:00: mouth 2 tablet 00 (two) times daily. isosorbide 2022-0 Yes [id number] 60mg Take 1 NPI:183 mononitrate 3-07 tablet by 131 8781 60 mg 24 hr 00:00: mouth 2 tablet 00 (two) times daily. isosorbide 2022-0 Yes [id number] 60mg Take 1 NPI:183 mononitrate 3-07 tablet by 131 8781 60 mg 24 hr 00:00: mouth 2 tablet 00 (two) times daily. isosorbide 2-0 Yes [id number] 60mg Take 1 NPI:183 mononitrate 3-07 tablet by 131 8781 60 mg 24 hr 00:00: mouth 2 tablet 00 (two) times daily. levothyroxi 2-0 Yes [id number] 50ug Take 1 NPI:183 ne 50 mcg 2-28 [place] [id number] 81 tablet 00:00: mouth 00 every morning. levothyroxi 2022-0 Yes [id number] 50ug Take 1 NPI:183 ne 50 mcg 2-28 [place] [id number] 81 tablet 00:00: mouth 00 every morning. levothyroxi 2022-0 Yes [id number] 50ug Take 1 NPI:183 ne 50 mcg 2-[place] [id number] 81 tablet 00:00: mouth 00 every morning. levothyroxi 2022-0 Yes [id number] 50ug Take 1 NPI:183 ne 50 mcg 2-28 [place] [id number] 81 tablet 00:00: mouth 00 every morning. levothyroxi 2022-0 Yes [id number] 50ug Take 1 NPI:183 ne 50 mcg 2-28 [place] 23889 81 tablet 00:00: mouth 00 every morning. levothyroxi 2022-0 Yes [id number] 50ug Take 1 NPI:183 ne 50 mcg 2-28 tablet [place] [id number] 81 tablet 00:00: mouth 00 every morning. levothyroxi 2022-0 Yes [id number] 50ug Take 1 NPI:183 ne 50 mcg 2-28 [place] [id number] 81 tablet 00:00: mouth 00 every morning. levothyroxi 0 Yes [id number] 50ug Take 1 NPI:183 ne 50 mcg 2-28 [place] [id number] 81 tablet 00:00: mouth 00 every morning. levothyroxi 2021-0 Yes [id number] 50ug Take 1 NPI:183 ne 50 mcg 2-28 [place] 25840 81 tablet 00:00: mouth 00 every morning. levothyroxi 0 Yes [id number] 50ug Take 1 NPI:183 ne 50 mcg 2-28 [place] [id number] 81 tablet 00:00: mouth 00 every morning. semaglutide Yes [id number] 1mg inject 1 NPI:183 (OZEMPIC) 1 2-18 mg under 1318 781 mg/dose (4 00:00: the skin mg/3 mL) 00 weekly. PnIj insulin Yes [id number] INJECT 90 NPI:183 regular hum 2-18 UNITS [id number] U-500 conc 00:00: SUBCUTANEO (HUMULIN R 00 USLY WITH U-500, BREAKFAST, CONC, 100 UNITS KWIKPEN) WITH LUNCH 500 unit/mL AND 100 (3 mL) InPn UNITS WITH DINNER. Insulin Yes [id number] INJECT 20 NPI:183 Glargine 2-18 UNITS [id number] (LANTUS 00:00: SUBCUTANEO SOLOSTAR 00 USLY TWICE U-100 DAILY INSULIN) 100 unit/mL (3 mL) injection semaglutide Yes [id number] 1mg inject 1 NPI:183 (OZEMPIC) 1 2-18 mg under 1318 781 mg/dose (4 00:00: the skin mg/3 mL) 00 weekly. PnIj insulin 0 Yes [id number] INJECT 90 NPI:183 regular hum 2-18 UNITS [id number] U-500 conc 00:00: SUBCUTANEO (HUMULIN R 00 USLY WITH U-500, BREAKFAST, CONC, 100 UNITS KWIKPEN) WITH LUNCH 500 unit/mL AND 100 (3 mL) InPn UNITS WITH DINNER. Insulin Yes [id number] INJECT 20 NPI:183 Glargine 2-18 UNITS [id number] (LANTUS 00:00: SUBCUTANEO SOLOSTAR 00 USLY TWICE U-100 DAILY INSULIN) 100 unit/mL (3 mL) injection semaglutide Yes [id number] 1mg inject 1 NPI:183 (OZEMPIC) 1 2-18 mg under 1318 781 mg/dose (4 00:00: the skin mg/3 mL) 00 weekly. PnIj insulin Yes [id number] INJECT 90 NPI:183 regular hum 2-18 UNITS [id number] U-500 conc 00:00: SUBCUTANEO (HUMULIN R 00 USLY WITH U-500, BREAKFAST, CONC, 100 UNITS KWIKPEN) WITH LUNCH 500 unit/mL AND 100 (3 mL) InPn UNITS WITH DINNER. Insulin Yes [id number] INJECT 20 NPI:183 Glargine 2-18 UNITS [id number] (LANTUS 00:00: SUBCUTANEO SOLOSTAR 00 USLY TWICE U-100 DAILY INSULIN) 100 unit/mL (3 mL) injection semaglutide Yes [id number] 1mg inject 1 NPI:183 (OZEMPIC) 1 2-18 mg under 1318 781 mg/dose (4 00:00: the skin mg/3 mL) 00 weekly. PnIj insulin Yes [id number] INJECT 90 NPI:183 regular hum 2-18 UNITS [id number] U-500 conc 00:00: SUBCUTANEO (HUMULIN R 00 USLY WITH U-500, BREAKFAST, CONC, 100 UNITS KWIKPEN) WITH LUNCH 500 unit/mL AND 100 (3 mL) InPn UNITS WITH DINNER. Insulin Yes [id number] INJECT 20 NPI:183 Glargine 2-18 UNITS [id number] (LANTUS 00:00: SUBCUTANEO SOLOSTAR 00 USLY TWICE U-100 DAILY INSULIN) 100 unit/mL (3 mL) injection semaglutide Yes [id number] 1mg inject 1 NPI:183 (OZEMPIC) 1 2-18 mg under 1318 781 mg/dose (4 00:00: the skin mg/3 mL) 00 weekly. PnIj insulin Yes [id number] INJECT 90 NPI:183 regular hum 2-18 UNITS [id number] U-500 conc 00:00: SUBCUTANEO (HUMULIN R 00 USLY WITH U-500, BREAKFAST, CONC, 100 UNITS KWIKPEN) WITH LUNCH 500 unit/mL AND 100 (3 mL) InPn UNITS WITH DINNER. Insulin Yes [id number] INJECT 20 NPI:183 Glargine 2-18 UNITS [id number] (LANTUS 00:00: SUBCUTANEO SOLOSTAR 00 USLY TWICE U-100 DAILY INSULIN) 100 unit/mL (3 mL) injection semaglutide Yes [id number] 1mg inject 1 NPI:183 (OZEMPIC) 1 2-18 mg under 1318 781 mg/dose (4 00:00: the skin mg/3 mL) 00 weekly. PnIj insulin Yes [id number] INJECT 90 NPI:183 regular hum 2-18 UNITS [id number] U-500 conc 00:00: SUBCUTANEO (HUMULIN R 00 USLY WITH U-500, BREAKFAST, CONC, 100 UNITS KWIKPEN) WITH LUNCH 500 unit/mL AND 100 (3 mL) InPn UNITS WITH DINNER. Insulin Yes [id number] INJECT 20 NPI:183 Glargine 2-18 UNITS [id number] (LANTUS 00:00: SUBCUTANEO SOLOSTAR 00 USLY TWICE U-100 DAILY INSULIN) 100 unit/mL (3 mL) injection semaglutide Yes [id number] 1mg inject 1 NPI:183 (OZEMPIC) 1 2-18 mg under 1318 781 mg/dose (4 00:00: the skin mg/3 mL) 00 weekly. PnIj insulin Yes [id number] INJECT 90 NPI:183 regular hum 2-18 UNITS [id number] U-500 conc 00:00: SUBCUTANEO (HUMULIN R 00 USLY WITH U-500, BREAKFAST, CONC, 100 UNITS KWIKPEN) WITH LUNCH 500 unit/mL AND 100 (3 mL) InPn UNITS WITH DINNER. Insulin Yes [id number] INJECT 20 NPI:183 Glargine 2-18 UNITS [id number] (LANTUS 00:00: SUBCUTANEO SOLOSTAR 00 USLY TWICE U-100 DAILY INSULIN) 100 unit/mL (3 mL) injection semaglutide Yes [id number] 1mg inject 1 NPI:183 (OZEMPIC) 1 2-18 mg under 1318 781 mg/dose (4 00:00: the skin mg/3 mL) 00 weekly. PnIj insulin Yes [id number] INJECT 90 NPI:183 regular hum 2-18 UNITS [id number] U-500 conc 00:00: SUBCUTANEO (HUMULIN R 00 USLY WITH U-500, BREAKFAST, CONC, 100 UNITS KWIKPEN) WITH LUNCH 500 unit/mL AND 100 (3 mL) InPn UNITS WITH DINNER. Insulin Yes [id number] INJECT 20 NPI:183 Glargine 2-18 UNITS [id number] (LANTUS 00:00: SUBCUTANEO SOLOSTAR 00 USLY TWICE U-100 DAILY INSULIN) 100 unit/mL (3 mL) injection semaglutide Yes [id number] 1mg inject 1 NPI:183 (OZEMPIC) 1 2-18 mg under 1318 781 mg/dose (4 00:00: the skin mg/3 mL) 00 weekly. PnIj insulin Yes [id number] INJECT 90 NPI:183 regular hum 2-18 UNITS [id number] U-500 conc 00:00: SUBCUTANEO (HUMULIN R 00 USLY WITH U-500, BREAKFAST, CONC, 100 UNITS KWIKPEN) WITH LUNCH 500 unit/mL AND 100 (3 mL) InPn UNITS WITH DINNER. Insulin Yes [id number] INJECT 20 NPI:183 Glargine 2-18 UNITS [id number] (LANTUS 00:00: SUBCUTANEO SOLOSTAR 00 USLY TWICE U-100 DAILY INSULIN) 100 unit/mL (3 mL) injection semaglutide Yes [id number] 1mg inject 1 NPI:183 (OZEMPIC) 1 2-18 mg under 1318 781 mg/dose (4 00:00: the skin mg/3 mL) 00 weekly. PnIj insulin Yes [id number] INJECT 90 NPI:183 regular hum 2-18 UNITS [id number] U-500 conc 00:00: SUBCUTANEO (HUMULIN R 00 USLY WITH U-500, BREAKFAST, CONC, 100 UNITS KWIKPEN) WITH LUNCH 500 unit/mL AND 100 (3 mL) InPn UNITS WITH DINNER. Insulin 2021-0 Yes [id number] INJECT 20 NPI:183 Glargine 2-18 UNITS [id number] (LANTUS 00:00: SUBCUTANEO SOLOSTAR 00 USLY TWICE U-100 DAILY INSULIN) 100 unit/mL (3 mL) injection amLODIPine 2021-0 Yes [id number] 5mg Take 1 NPI:183 5 mg tablet 2-16 tablet by 131 8781 00:00: mouth 00 daily. amLODIPine 2021-0 Yes [id number] 5mg Take 1 NPI:183 5 mg tablet 2-16 tablet by 131 8781 00:00: mouth 00 daily. amLODIPine 2021-0 Yes [id number] 5mg Take 1 NPI:183 5 mg tablet 2-16 tablet by 131 8781 00:00: mouth 00 daily. amLODIPine 2021-0 Yes [id number] 5mg Take 1 NPI:183 5 mg tablet 2-16 tablet by 131 8781 00:00: mouth 00 daily. amLODIPine 2-0 Yes [id number] 5mg Take 1 NPI:183 5 mg tablet 2-16 tablet by 131 8781 00:00: mouth 00 daily. amLODIPine 2021-0 Yes [id number] 5mg Take 1 NPI:183 5 mg tablet 2-16 tablet by 131 8781 00:00: mouth 00 daily. amLODIPine 2-0 Yes [id number] 5mg Take 1 NPI:183 5 mg tablet 2-16 tablet by 131 8781 00:00: mouth 00 daily. amLODIPine 2-0 Yes [id number] 5mg Take 1 NPI:183 5 mg tablet 2-16 tablet by 131 8781 00:00: mouth 00 daily. amLODIPine 2-0 Yes [id number] 5mg Take 1 NPI:183 5 mg tablet 2-16 tablet by 131 8781 00:00: mouth 00 daily. amLODIPine 2-0 Yes [id number] 5mg Take 1 NPI:183 5 mg tablet 2-16 tablet by 131 8781 00:00: mouth 00 daily. clopidogreL 2022-0 Yes NPI:18 3 75 mg 2-13 [id number] tablet 00:00: 00 clopidogreL 2022-0 Yes NPI:18 3 75 mg 2-13 [id number] tablet 00:00: 00 clopidogreL 2022-0 Yes NPI:18 3 75 mg 2-13 [id number] tablet 00:00: 00 clopidogreL 2022-0 Yes NPI:18 3 75 mg 2-13 [id number] tablet 00:00: 00 clopidogreL 2022-0 Yes NPI:18 3 75 mg 2-13 [id number] tablet 00:00: 00 clopidogreL 2022-0 Yes NPI:18 3 75 mg 2-13 [id number] tablet 00:00: 00 clopidogreL 2022-0 Yes NPI:18 3 75 mg 2-13 [id number] tablet 00:00: 00 clopidogreL 2022-0 Yes NPI:18 3 75 mg 2-13 [id number] tablet 00:00: 00 clopidogreL 2022-0 Yes NPI:18 3 75 mg 2-13 [id number] tablet 00:00: 00 clopidogreL 2022-0 Yes NPI:18 3 75 mg 2-13 [id number] tablet 00:00: 00 losartan 50 2021-0 Yes [id number] 50mg Take 1 NPI:183 mg tablet 1-21 tablet [place] 85466 81 00:00: mouth 2 00 (two) times daily. losartan 50 2021-0 Yes [id number] 50mg Take 1 NPI:183 mg tablet 1-21 [place] 77446 81 00:00: mouth 2 00 (two) times daily. losartan 50 2021-0 Yes [id number] 50mg Take 1 NPI:183 mg tablet 1-21 tablet by 78455 81 00:00: mouth 2 00 (two) times daily. losartan 50 2-0 Yes [id number] 50mg Take 1 NPI:183 mg tablet 1-21 tablet [place] [id number] 81 00:00: mouth 2 00 (two) times daily. losartan 50 2-0 Yes [id number] 50mg Take 1 NPI:183 mg tablet 1-21 tablet [place] [id number] 81 00:00: mouth 2 00 (two) times daily. losartan 50 2-0 Yes [id number] 50mg Take 1 NPI:183 mg tablet 1-21 tablet [place] 30739 81 00:00: mouth 2 00 (two) times daily. losartan 50 2022-0 Yes [id number] 50mg Take 1 NPI:183 mg tablet 1-21 tablet by 19555 81 00:00: mouth 2 00 (two) times daily. losartan 50 2021-0 Yes [id number] 50mg Take 1 NPI:183 mg tablet 1-21 [place] 73121 81 00:00: mouth 2 00 (two) times daily. losartan 50 2021-0 Yes [id number] 50mg Take 1 NPI:183 mg tablet 1-21 [place] 67779 81 00:00: mouth 2 00 (two) times daily. losartan 50 2021-0 Yes [id number] 50mg Take 1 NPI:183 mg tablet 1-21 [place] 66520 81 00:00: mouth 2 00 (two) times daily. losartan 50 2021-0 Yes [id number] 50mg Take 1 NPI:183 mg tablet 1-21 tablet by 65363 81 00:00: mouth 2 00 (two) times daily. LEVOTHYROXI 2021- No [id number] 50ug TAKE 1 NPI:183 NE 50 mcg -17 12-05 TABLET BY [id number] tablet 00:00: 00:00 MOUTH 00 :00 EVERY MORNING CARVEDILOL 2020-10 Yes TAKE 1 NPI:1 83 25 mg 2-16 TABLET BY [id number] tablet 00:00: MOUTH 00 TWICE DAILY CARVEDILOL 2020-10 Yes TAKE 1 NPI:1 83 25 mg 2-16 TABLET BY [id number] tablet 00:00: MOUTH 00 TWICE DAILY CARVEDILOL 2020-10 Yes TAKE 1 NPI:1 83 25 mg 2-16 TABLET BY [id number] tablet 00:00: MOUTH 00 TWICE DAILY CARVEDILOL 2020-10 Yes TAKE 1 NPI:1 83 25 mg 2-16 TABLET BY [id number] tablet 00:00: MOUTH 00 TWICE DAILY CARVEDILOL 2020-10 Yes TAKE 1 NPI:1 83 25 mg 2-16 TABLET BY [id number] tablet 00:00: MOUTH 00 TWICE DAILY CARVEDILOL 2020-10 Yes TAKE 1 NPI:1 83 25 mg 2-16 TABLET BY [id number] tablet 00:00: MOUTH 00 TWICE DAILY CARVEDILOL 2020-10 Yes TAKE 1 NPI:1 83 25 mg 2-16 TABLET BY [id number] tablet 00:00: MOUTH 00 TWICE DAILY CARVEDILOL 2020-10 Yes TAKE 1 NPI:1 83 25 mg 2-16 TABLET BY [id number] tablet 00:00: MOUTH 00 TWICE DAILY CARVEDILOL 2020-10 Yes TAKE 1 NPI:1 83 25 mg 2-16 TABLET BY [id number] tablet 00:00: MOUTH 00 TWICE DAILY CARVEDILOL 2020-10 Yes TAKE 1 NPI:1 83 25 mg 2-16 TABLET BY [id number] tablet 00:00: MOUTH 00 TWICE DAILY CARVEDILOL 2020-10 Yes TAKE 1 NPI:1 83 25 mg 2-16 TABLET BY [id number] tablet 00:00: MOUTH 00 TWICE DAILY ezetimibe 2020-10 Yes [id number] 10mg Take 1 N PI:183 10 mg 0-26 tablet by [id number] tablet 00:00: mouth 00 daily. isosorbide 2020-10 Yes [id number] 60mg Take 1 NPI:183 mononitrate 0-26 tablet by 131 8781 60 mg 24 hr 00:00: mouth 2 tablet 00 (two) times daily. nitroglycer 2020-[id number] 1 NPI:183 in 0.4 mg 0-26 tablet [id number] sublingual 00:00: under the tablet 00 tongue every 5 (five) minutes as needed for Chest pain. ezetimibe 2020-10 Yes [id number] 10mg Take 1 N PI:183 10 mg 0-26 tablet by [id number] tablet 00:00: mouth 00 daily. isosorbide 2020-10 Yes [id number] 60mg Take 1 NPI:183 mononitrate 0-26 tablet by 131 8781 60 mg 24 hr 00:00: mouth 2 tablet 00 (two) times daily. nitroglycer 2020-[id number] 1 NPI:183 in 0.4 mg 0-26 tablet [id number] sublingual 00:00: under the tablet 00 tongue every 5 (five) minutes as needed for Chest pain. ezetimibe 2020-10 Yes [id number] 10mg Take 1 N PI:183 10 mg 0-26 tablet by [id number] tablet 00:00: mouth 00 daily. nitroglycer 2020-[id number] 1 NPI:183 in 0.4 mg 0-26 tablet [id number] sublingual 00:00: under the tablet 00 tongue every 5 (five) minutes as needed for Chest pain. ezetimibe 2020-10 Yes [id number] 10mg Take 1 N PI:183 10 mg 0-26 tablet by [id number] tablet 00:00: mouth 00 daily. nitroglycer 2020-[id number] 1 NPI:183 in 0.4 mg 0-26 tablet [id number] sublingual 00:00: under the tablet 00 tongue every 5 (five) minutes as needed for Chest pain. ezetimibe 2020-10 Yes [id number] 10mg Take 1 N PI:183 10 mg 0-26 tablet by [id number] tablet 00:00: mouth 00 daily. nitroglycer 2020-[id number] 1 NPI:183 in 0.4 mg 0-26 tablet [id number] sublingual 00:00: under the tablet 00 tongue every 5 (five) minutes as needed for Chest pain. ezetimibe 2020-10 Yes [id number] 10mg Take 1 N PI:183 10 mg 0-26 tablet by [id number] tablet 00:00: mouth 00 daily. nitroglycer 2020-[id number] 1 NPI:183 in 0.4 mg 0-26 tablet [id number] sublingual 00:00: under the tablet 00 tongue every 5 (five) minutes as needed for Chest pain. ezetimibe 2020-10 Yes [id number] 10mg Take 1 N PI:183 10 mg 0-26 tablet by [id number] tablet 00:00: mouth 00 daily. nitroglycer 2020-[id number] 1 NPI:183 in 0.4 mg 0-26 tablet [id number] sublingual 00:00: under the tablet 00 tongue every 5 (five) minutes as needed for Chest pain. ezetimibe 2020-10 Yes [id number] 10mg Take 1 N PI:183 10 mg 0-26 tablet by [id number] tablet 00:00: mouth 00 daily. nitroglycer 2020-[id number] 1 NPI:183 in 0.4 mg 0-26 tablet [id number] sublingual 00:00: under the tablet 00 tongue every 5 (five) minutes as needed for Chest pain. ezetimibe 2020-10 Yes [id number] 10mg Take 1 N PI:183 10 mg 0-26 tablet by [id number] tablet 00:00: mouth 00 daily. nitroglycer 2020-[id number] 1 NPI:183 in 0.4 mg 0-26 tablet [id number] sublingual 00:00: under the tablet 00 tongue every 5 (five) minutes as needed for Chest pain. ezetimibe 2020-10 Yes [id number] 10mg Take 1 N PI:183 10 mg 0-26 tablet by [id number] tablet 00:00: mouth 00 daily. nitroglycer 2020-[id number] 1 NPI:183 in 0.4 mg 0-26 tablet [id number] sublingual 00:00: under the tablet 00 tongue every 5 (five) minutes as needed for Chest pain. ezetimibe 2020-10 Yes [id number] 10mg Take 1 N PI:183 10 mg 0-26 tablet by [id number] tablet 00:00: mouth 00 daily. nitroglycer 2020-[id number] 1 NPI:183 in 0.4 mg 0-26 tablet [id number] sublingual 00:00: under the tablet 00 tongue every 5 (five) minutes as needed for Chest pain. isosorbide 2020-10- No [id number] 60mg Take 1 NPI:183 mononitrate 0-26 03-07 tablet by 13 13222 60 mg 24 hr 00:00: 00:00 mouth 2 tablet 00 :00 (two) times daily. DULoxetine 2020-10 Yes [id number] 30mg Take 1 [id number]:[id number] 30 mg 0-22 capsule by [id number] capsule 00:00: mouth 2 00 (two) times daily. DULoxetine 2020-10 Yes [id number] 30mg Take 1 NPI:[id number] 30 mg 0-22 capsule by [id number] capsule 00:00: mouth 2 00 (two) times daily. DULoxetine 2020-10 Yes [id number] 30mg Take 1 NPI:[id number] 30 mg 0-22 capsule by [id number] capsule 00:00: mouth 2 00 (two) times daily. DULoxetine 2020-10 Yes [id number] 30mg Take 1 NPI:[id number] 30 mg 0-22 capsule by [id number] capsule 00:00: mouth 2 00 (two) times daily. DULoxetine 2020-10 Yes [id number] 30mg Take 1 NPI:[id number] 30 mg 0-22 capsule by [id number] capsule 00:00: mouth 2 00 (two) times daily. DULoxetine 2020-10 Yes [id number] 30mg Take 1 NPI:[id number] 30 mg 0-22 capsule by [id number] capsule 00:00: mouth 2 00 (two) times daily. DULoxetine 2020-10 Yes [id number] 30mg Take 1 NPI:[email or web address] 30 mg 0-22 capsule by [id number] capsule 00:00: mouth 2 00 (two) times daily. DULoxetine 2020-10 Yes [id number] 30mg Take 1 NPI:183 30 mg 0-22 capsule by [id number] capsule 00:00: mouth 2 00 (two) times daily. DULoxetine 2020-10 Yes [id number] 30mg Take 1 NPI:183 30 mg 0-22 capsule by [id number] capsule 00:00: mouth 2 00 (two) times daily. DULoxetine 2020-10 Yes [id number] 30mg Take 1 NPI:183 30 mg 0-22 capsule by [id number] capsule 00:00: mouth 2 00 (two) times daily. DULoxetine 2020-10 Yes [id number] 30mg Take 1 NPI:183 30 mg 0-22 capsule by [id number] capsule 00:00: mouth 2 00 (two) times daily. benzonatate 2020-10 Yes [id number] 100mg Take 1 NPI:183 100 mg 0-13 capsule by [id number] capsule 00:00: mouth 3 00 (three) times daily as needed for Cough. fluticasone 2020-10 Yes [id number] 1{spray Use 1 NPI:183 propionate 0-13 } [place] [address] 81 50 00:00: each mcg/actuati 00 nostril on nasal daily. spray benzonatate 2020-10 Yes [id number] 100mg Take 1 NPI:183 100 mg 0-13 capsule by [id number] capsule 00:00: mouth 3 00 (three) times daily as needed for Cough. fluticasone 2020-10 Yes [id number] 1{spray Use 1 NPI:183 propionate 0-13 } [place] [address] 81 50 00:00: each mcg/actuati 00 nostril on nasal daily. spray benzonatate 2020-10 Yes [id number] 100mg Take 1 NPI:183 100 mg 0-13 capsule by [id number] capsule 00:00: mouth 3 00 (three) times daily as needed for Cough. fluticasone 2020-10 Yes [id number] 1{spray Use 1 NPI:183 propionate 0-13 } [place] in [facility] 81 50 00:00: each mcg/actuati 00 nostril on nasal daily. spray benzonatate 2020-10 Yes [id number] 100mg Take 1 NPI:183 100 mg 0-13 capsule by [id number] capsule 00:00: mouth 3 00 (three) times daily as needed for Cough. fluticasone 2020-10 Yes [id number] 1{spray Use 1 NPI:183 propionate 0-13 } [place] in [address] [place] [address] 50 00:00: each mcg/actuati 00 nostril on nasal daily. spray benzonatate 2020-10 Yes [id number] 100mg Take 1 NPI:183 100 mg 0-13 capsule by [id number] capsule 00:00: mouth 3 00 (three) times daily as needed for Cough. fluticasone 2020-10 Yes [id number] 1{spray Use 1 NPI:183 propionate 0-13 } [place] in [address] [place] [address] 50 00:00: each mcg/actuati 00 nostril on nasal daily. spray benzonatate 2020-10 Yes [id number] 100mg Take 1 NPI:183 100 mg 0-13 capsule by [id number] capsule 00:00: mouth 3 00 (three) times daily as needed for Cough. fluticasone 2020-10 Yes [id number] 1{spray Use 1 NPI:183 propionate 0-13 } [place] in [facility] 81 50 00:00: each mcg/actuati 00 nostril on nasal daily. spray benzonatate 2020-10 Yes [id number] 100mg Take 1 NPI:183 100 mg 0-13 capsule by [id number] capsule 00:00: mouth 3 00 (three) times daily as needed for Cough. fluticasone 2020-10 Yes [id number] 1{spray Use 1 NPI:183 propionate 0-13 } [place] in [facility] 81 50 00:00: each mcg/actuati 00 nostril on nasal daily. spray benzonatate 2020-10 Yes [id number] 100mg Take 1 NPI:183 100 mg 0-13 capsule by [id number] capsule 00:00: mouth 3 00 (three) times daily as needed for Cough. fluticasone 2020-10 Yes [id number] 1{spray Use 1 NPI:183 propionate 0-13 } [place] in [facility] 81 50 00:00: each mcg/actuati 00 nostril on nasal daily. spray benzonatate 2020-10 Yes [id number] 100mg Take 1 NPI:183 100 mg 0-13 capsule by [id number] capsule 00:00: mouth 3 00 (three) times daily as needed for Cough. fluticasone 2020-10 Yes [id number] 1{spray Use 1 NPI:183 propionate 0-13 } [place] in [address] [place] [address] 50 00:00: each mcg/actuati 00 nostril on nasal daily. spray benzonatate 2020-10 Yes [id number] 100mg Take 1 NPI:183 100 mg 0-13 capsule by [id number] capsule 00:00: mouth 3 00 (three) times daily as needed for Cough. fluticasone 2020-10 Yes [id number] 1{spray Use 1 NPI:183 propionate 0-13 } [place] in [address] [place] [address] 50 00:00: each mcg/actuati 00 nostril on nasal daily. spray benzonatate 2020-10 Yes [id number] 100mg Take 1 NPI:183 100 mg 0-13 capsule by [id number] capsule 00:00: mouth 3 00 (three) times daily as needed for Cough. fluticasone 2020-10 Yes [id number] 1{spray Use 1 NPI:183 propionate 0-13 } [place] in [facility] 81 50 00:00: each mcg/actuati 00 nostril on nasal daily. spray DULoxetine Yes [id number] 40mg Take 40 mg NPI:183 40 mg CpDR 9-20 by mouth 2 131 8781 00:00: (two) 00 times daily. DULoxetine Yes [id number] 40mg Take 40 mg NPI:183 40 mg CpDR 9-20 by mouth 2 131 8781 00:00: (two) 00 times daily. DULoxetine 2021-0 Yes [id number] 40mg Take 40 mg NPI:183 40 mg CpDR 9-20 by mouth 2 131 8781 00:00: (two) 00 times daily. DULoxetine 2020-0 Yes [id number] 40mg Take 40 mg NPI:183 40 mg CpDR 9-20 by mouth 2 131 8781 00:00: (two) 00 times daily. DULoxetine 2020-0 Yes [id number] 40mg Take 40 mg NPI:183 40 mg CpDR 9-20 by mouth 2 131 8781 00:00: (two) 00 times daily. DULoxetine 2020-0 Yes [id number] 40mg Take 40 mg NPI:183 40 mg CpDR 9-20 by mouth 2 131 8781 00:00: (two) 00 times daily. DULoxetine 2020-0 Yes [id number] 40mg Take 40 mg NPI:183 40 mg CpDR 9-20 by mouth 2 131 8781 00:00: (two) 00 times daily. DULoxetine 2020-0 Yes [id number] 40mg Take 40 mg NPI:183 40 mg CpDR 9-20 by mouth 2 131 8781 00:00: (two) 00 times daily. DULoxetine 2020-0 Yes [id number] 40mg Take 40 mg NPI:183 40 mg CpDR 9-20 by mouth 2 131 8781 00:00: (two) 00 times daily. DULoxetine 2020-0 2022- No [id number] 40mg Take 40 mg NPI:183 40 mg CpDR 9-20 05-04 by mouth 2 13 85521 00:00: 00:00 (two) 00 :00 times daily. SPIRONOLACT 1-0 Yes TAKE 1 NPI: 183 ONE 25 mg 9-16 [place] [id number] tablet 00:00: MOUTH ONCE 00 DAILY SPIRONOLACT 1-0 Yes TAKE 1 NPI: 183 ONE 25 mg 9-16 TABLET BY [id number] 81 tablet 00:00: MOUTH ONCE 00 DAILY SPIRONOLACT 1-0 Yes TAKE 1 NPI: 183 ONE 25 mg 9-16 [place] [id number] tablet 00:00: MOUTH ONCE 00 DAILY SPIRONOLACT 1-0 Yes TAKE 1 NPI: 183 ONE 25 mg 9-16 [place] [id number] 81 tablet 00:00: MOUTH ONCE 00 DAILY SPIRONOLACT 2021-0 Yes TAKE 1 NPI: 183 ONE 25 mg 9-16 [place] [id number] 81 tablet 00:00: MOUTH ONCE 00 DAILY SPIRONOLACT 202-0 Yes TAKE 1 NPI: 183 ONE 25 mg 9-16 [place] [id number] 81 tablet 00:00: MOUTH ONCE 00 DAILY SPIRONOLACT 2021-0 Yes TAKE 1 NPI: 183 ONE 25 mg 9-16 [place] [id number] 81 tablet 00:00: MOUTH ONCE 00 DAILY SPIRONOLACT 202-0 Yes TAKE 1 NPI: 183 ONE 25 mg 9-16 [place] [id number] 81 tablet 00:00: MOUTH ONCE 00 DAILY SPIRONOLACT 202-0 Yes TAKE 1 NPI: 183 ONE 25 mg 9-16 [place] [id number] 81 tablet 00:00: MOUTH ONCE 00 DAILY SPIRONOLACT 202-0 Yes TAKE 1 NPI: 183 ONE 25 mg 9-16 [place] [id number] 81 tablet 00:00: MOUTH ONCE 00 DAILY SPIRONOLACT 2021-0 Yes TAKE 1 NPI: 183 ONE 25 mg 9-16 [place] [id number] 81 tablet 00:00: MOUTH ONCE 00 DAILY bromphenira 2020-0 Yes [id number] 5mL Take 5 mL NPI:183 mine-pseudo 8-13 by mouth 4 13 95254 ephedrine-D 00:00: (four) M (BROMFED 00 times DM) 2-30-10 daily as mg/5 mL needed for syrup Congestion /Allergies . benzonatate 2020-0 Yes [id number] 100mg Take 1 NPI:183 100 mg 8-13 capsule by [id number] capsule 00:00: mouth 3 00 (three) times daily as needed for Cough. albuterol 2020-0 Yes [id number] 2{puff} Inhale 2 NPI:183 90 8-13 Puffs [id number] mcg/actuati 00:00: every 4 on inhaler 00 (four) hours as needed for Wheezing or Shortness of Breath. bromphenira 2020-0 Yes [id number] 5mL Take 5 mL NPI:183 mine-pseudo 8-13 by mouth 4 13 23115 ephedrine-D 00:00: (four) M (BROMFED 00 times DM) 2-30-10 daily as mg/5 mL needed for syrup Congestion /Allergies . benzonatate 2020-0 Yes [id number] 100mg Take 1 NPI:183 100 mg 8-13 capsule by [id number] capsule 00:00: mouth 3 00 (three) times daily as needed for Cough. albuterol 2020-0 Yes [id number] 2{puff} Inhale 2 NPI:183 90 8-13 Puffs [id number] mcg/actuati 00:00: every 4 on inhaler 00 (four) hours as needed for Wheezing or Shortness of Breath. bromphenira 2020-0 Yes [id number] 5mL Take 5 mL NPI:183 mine-pseudo 8-13 by mouth 4 13 34206 ephedrine-D 00:00: (four) M (BROMFED 00 times DM) 2-30-10 daily as mg/5 mL needed for syrup Congestion /Allergies . benzonatate 2020-0 Yes [id number] 100mg Take 1 NPI:183 100 mg 8-13 capsule by [id number] capsule 00:00: mouth 3 00 (three) times daily as needed for Cough. albuterol 2020-0 Yes [id number] 2{puff} Inhale 2 NPI:183 90 8-13 Puffs [id number] mcg/actuati 00:00: every 4 on inhaler 00 (four) hours as needed for Wheezing or Shortness of Breath. bromphenira 2020-0 Yes [id number] 5mL Take 5 mL NPI:183 mine-pseudo 8-13 by mouth 4 13 74571 ephedrine-D 00:00: (four) M (BROMFED 00 times DM) 2-30-10 daily as mg/5 mL needed for syrup Congestion /Allergies . benzonatate 2020-0 Yes [id number] 100mg Take 1 NPI:183 100 mg 8-13 capsule by [id number] capsule 00:00: mouth 3 00 (three) times daily as needed for Cough. albuterol 2020-0 Yes [id number] 2{puff} Inhale 2 NPI:183 90 8-13 Puffs [id number] mcg/actuati 00:00: every 4 on inhaler 00 (four) hours as needed for Wheezing or Shortness of Breath. bromphenira 2020-0 Yes [id number] 5mL Take 5 mL NPI:183 mine-pseudo 8-13 by mouth 4 13 60159 ephedrine-D 00:00: (four) M (BROMFED 00 times DM) 2-30-10 daily as mg/5 mL needed for syrup Congestion /Allergies . benzonatate 2020-0 Yes [id number] 100mg Take 1 NPI:183 100 mg 8-13 capsule by [id number] capsule 00:00: mouth 3 00 (three) times daily as needed for Cough. albuterol 2020-0 Yes [id number] 2{puff} Inhale 2 NPI:183 90 8-13 Puffs [id number] mcg/actuati 00:00: every 4 on inhaler 00 (four) hours as needed for Wheezing or Shortness of Breath. bromphenira 2020-0 Yes [id number] 5mL Take 5 mL NPI:183 mine-pseudo 8-13 by mouth 4 13 59172 ephedrine-D 00:00: (four) M (BROMFED 00 times DM) 2-30-10 daily as mg/5 mL needed for syrup Congestion /Allergies . benzonatate 2020-0 Yes [id number] 100mg Take 1 NPI:183 100 mg 8-13 capsule by [id number] capsule 00:00: mouth 3 00 (three) times daily as needed for Cough. albuterol 2020-0 Yes [id number] 2{puff} Inhale 2 NPI:183 90 8-13 Puffs [id number] mcg/actuati 00:00: every 4 on inhaler 00 (four) hours as needed for Wheezing or Shortness of Breath. bromphenira 2020-0 Yes [id number] 5mL Take 5 mL NPI:183 mine-pseudo 8-13 by mouth 4 13 06168 ephedrine-D 00:00: (four) M (BROMFED 00 times DM) 2-30-10 daily as mg/5 mL needed for syrup Congestion /Allergies . benzonatate 2020-0 Yes [id number] 100mg Take 1 NPI:183 100 mg 8-13 capsule by [id number] capsule 00:00: mouth 3 00 (three) times daily as needed for Cough. albuterol 2020-0 Yes [id number] 2{puff} Inhale 2 NPI:183 90 8-13 Puffs [id number] mcg/actuati 00:00: every 4 on inhaler 00 (four) hours as needed for Wheezing or Shortness of Breath. bromphenira 2020-0 Yes [id number] 5mL Take 5 mL NPI:183 mine-pseudo 8-13 by mouth 4 13 43429 ephedrine-D 00:00: (four) M (BROMFED 00 times DM) 2-30-10 daily as mg/5 mL needed for syrup Congestion /Allergies . benzonatate 2020-0 Yes [id number] 100mg Take 1 NPI:183 100 mg 8-13 capsule by [id number] capsule 00:00: mouth 3 00 (three) times daily as needed for Cough. albuterol 2020-0 Yes [id number] 2{puff} Inhale 2 NPI:183 90 8-13 Puffs [id number] mcg/actuati 00:00: every 4 on inhaler 00 (four) hours as needed for Wheezing or Shortness of Breath. bromphenira 0 Yes [id number] 5mL Take 5 mL NPI:183 mine-pseudo 8-13 by mouth 4 13 74646 ephedrine-D 00:00: (four) M (BROMFED 00 times DM) 2-30-10 daily as mg/5 mL needed for syrup Congestion /Allergies . benzonatate 0 Yes [id number] 100mg Take 1 NPI:183 100 mg 8-13 capsule by [id number] capsule 00:00: mouth 3 00 (three) times daily as needed for Cough. albuterol 0 Yes [id number] 2{puff} Inhale 2 NPI:183 90 8-13 Puffs [id number] mcg/actuati 00:00: every 4 on inhaler 00 (four) hours as needed for Wheezing or Shortness of Breath. bromphenira 0 Yes [id number] 5mL Take 5 mL NPI:183 mine-pseudo 8-13 by mouth 4 13 30311 ephedrine-D 00:00: (four) M (BROMFED 00 times DM) 2-30-10 daily as mg/5 mL needed for syrup Congestion /Allergies . benzonatate 0 Yes [id number] 100mg Take 1 NPI:183 100 mg 8-13 capsule by [id number] capsule 00:00: mouth 3 00 (three) times daily as needed for Cough. albuterol 2020-0 Yes [id number] 2{puff} Inhale 2 NPI:183 90 8-13 Puffs [id number] mcg/actuati 00:00: every 4 on inhaler 00 (four) hours as needed for Wheezing or Shortness of Breath. bromphenira 0 Yes [id number] 5mL Take 5 mL NPI:183 mine-pseudo 8-13 by mouth 4 13 47806 ephedrine-D 00:00: (four) M (BROMFED 00 times DM) 2-30-10 daily as mg/5 mL needed for syrup Congestion /Allergies . benzonatate 0 Yes [id number] 100mg Take 1 NPI:183 100 mg 8-13 capsule by [id number] capsule 00:00: mouth 3 00 (three) times daily as needed for Cough. albuterol 0 Yes [id number] 2{puff} Inhale 2 NPI:183 90 8-13 Puffs [id number] mcg/actuati 00:00: every 4 on inhaler 00 (four) hours as needed for Wheezing or Shortness of Breath. ATORVASTATI 0 Yes [id number] 80mg TAKE 1 NPI:183 N 80 mg 5-21 TABLET BY [id number] tablet 00:00: MOUTH AT 00 BEDTIME ATORVASTATI 2020-0 Yes [id number] 80mg TAKE 1 NPI:183 N 80 mg 5-21 TABLET BY [id number] tablet 00:00: MOUTH AT 00 BEDTIME ATORVASTATI 2020-0 Yes [id number] 80mg TAKE 1 NPI:183 N 80 mg 5-21 TABLET BY [id number] tablet 00:00: MOUTH AT 00 BEDTIME ATORVASTATI 2020-0 Yes [id number] 80mg TAKE 1 NPI:183 N 80 mg 5-21 TABLET BY [id number] tablet 00:00: MOUTH AT 00 BEDTIME ATORVASTATI 2020-0 Yes [id number] 80mg TAKE 1 NPI:183 N 80 mg 5-21 TABLET BY [id number] tablet 00:00: MOUTH AT 00 BEDTIME ATORVASTATI 2020-0 Yes [id number] 80mg TAKE 1 NPI:183 N 80 mg 5-21 TABLET BY [id number] tablet 00:00: MOUTH AT 00 BEDTIME ATORVASTATI 2020-0 Yes [id number] 80mg TAKE 1 NPI:183 N 80 mg 5-21 TABLET BY [id number] tablet 00:00: MOUTH AT 00 BEDTIME ATORVASTATI 2021-0 Yes [id number] 80mg TAKE 1 NPI:183 N 80 mg 5-21 TABLET BY [id number] tablet 00:00: MOUTH AT 00 BEDTIME ATORVASTATI 2020-0 2022- No [id number] 80mg TAKE 1 NPI:183 N 80 mg 5-21 04-14 TABLET BY [id number] tablet 00:00: 00:00 MOUTH AT 00 :00 BEDTIME pregabalin 2019-10 Yes [id number] 75mg Take 1 NPI:183 (LYRICA) 75 0-28 capsule by 13 29373 mg capsule 00:00: mouth 2 00 (two) times daily. pregabalin 2019-10 Yes [id number] 75mg Take 1 NPI:183 (LYRICA) 75 0-28 capsule by 13 26975 mg capsule 00:00: mouth 2 00 (two) times daily. pregabalin 2019-10 Yes [id number] 75mg Take 1 NPI:183 (LYRICA) 75 0-28 capsule by 13 22697 mg capsule 00:00: mouth 2 00 (two) times daily. pregabalin 2019-10 Yes [id number] 75mg Take 1 NPI:183 (LYRICA) 75 0-28 capsule by 13 50656 mg capsule 00:00: mouth 2 00 (two) times daily. pregabalin 2019-10 Yes [id number] 75mg Take 1 NPI:183 (LYRICA) 75 0-28 capsule by 13 92803 mg capsule 00:00: mouth 2 00 (two) times daily. pregabalin 2019-10 Yes [id number] 75mg Take 1 NPI:183 (LYRICA) 75 0-28 capsule by 13 33500 mg capsule 00:00: mouth 2 00 (two) times daily. pregabalin 2019-10 Yes [id number] 75mg Take 1 NPI:183 (LYRICA) 75 0-28 capsule by 13 04059 mg capsule 00:00: mouth 2 00 (two) times daily. pregabalin 2019-10 Yes [id number] 75mg Take 1 NPI:183 (LYRICA) 75 0-28 capsule by 13 64597 mg capsule 00:00: mouth 2 00 (two) times daily. pregabalin 2019-10 Yes [id number] 75mg Take 1 NPI:183 (LYRICA) 75 0-28 capsule by 13 10366 mg capsule 00:00: mouth 2 00 (two) times daily. pregabalin 2020-1 Yes [id number] 75mg Take 1 NPI:183 (LYRICA) 75 0-28 capsule by 13 33279 mg capsule 00:00: mouth 2 00 (two) times daily. pregabalin 2020-1 Yes [id number] 75mg Take 1 NPI:183 (LYRICA) 75 0-28 capsule by 13 40916 mg capsule 00:00: mouth 2 00 (two) times daily. multivitami 2020-0 Yes [id number] 1{capsu Take 1 NPI:183 n capsule 9-10 le} capsule by 1318 781 00:00: mouth 00 daily. calcium-mag 2020-0 Yes [id number] Take as NPI:183 nesium-zinc 9-10 directed 1318 781 333-133-8.3 00:00: for daily mg Tab 00 dose. multivitami 2020-0 Yes [id number] 1{capsu Take 1 NPI:183 n capsule 9-10 le} capsule by 1318 781 00:00: mouth 00 daily. calcium-mag 2020-0 Yes [id number] Take as NPI:183 nesium-zinc 9-10 directed 1318 781 333-133-8.3 00:00: for daily mg Tab 00 dose. multivitami 2020-0 Yes [id number] 1{capsu Take 1 NPI:183 n capsule 9-10 le} capsule by 1318 781 00:00: mouth 00 daily. calcium-mag 2020-0 Yes [id number] Take as NPI:183 nesium-zinc 9-10 directed 1318 781 333-133-8.3 00:00: for daily mg Tab 00 dose. multivitami 2020-0 Yes [id number] 1{capsu Take 1 NPI:183 n capsule 9-10 le} capsule by 1318 781 00:00: mouth 00 daily. calcium-mag 2020-0 Yes [id number] Take as NPI:183 nesium-zinc 9-10 directed 1318 781 333-133-8.3 00:00: for daily mg Tab 00 dose. multivitami 2020-0 Yes [id number] 1{capsu Take 1 NPI:183 n capsule 9-10 le} capsule by 1318 781 00:00: mouth 00 daily. calcium-mag 2020-0 Yes [id number] Take as NPI:183 nesium-zinc 9-10 directed 1318 781 333-133-8.3 00:00: for daily mg Tab 00 dose. multivitami 2020-0 Yes [id number] 1{capsu Take 1 NPI:183 n capsule 9-10 le} capsule by 1318 781 00:00: mouth 00 daily. calcium-mag 2020-0 Yes [id number] Take as NPI:183 nesium-zinc 9-10 directed 1318 781 333-133-8.3 00:00: for daily mg Tab 00 dose. multivitami 2020-0 Yes [id number] 1{capsu Take 1 NPI:183 n capsule 9-10 le} capsule by 1318 781 00:00: mouth 00 daily. calcium-mag 2020-0 Yes [id number] Take as NPI:183 nesium-zinc 9-10 directed 1318 781 333-133-8.3 00:00: for daily mg Tab 00 dose. multivitami 2020-0 Yes [id number] 1{capsu Take 1 NPI:183 n capsule 9-10 le} capsule by 1318 781 00:00: mouth 00 daily. calcium-mag 2020-0 Yes [id number] Take as NPI:183 nesium-zinc 9-10 directed 1318 781 333-133-8.3 00:00: for daily mg Tab 00 dose. multivitami 2020-0 Yes [id number] 1{capsu Take 1 NPI:183 n capsule 9-10 le} capsule by 1318 781 00:00: mouth 00 daily. calcium-mag 2020-0 Yes [id number] Take as NPI:183 nesium-zinc 9-10 directed 1318 781 333-133-8.3 00:00: for daily mg Tab 00 dose. multivitami 2020-0 Yes [id number] 1{capsu Take 1 NPI:183 n capsule 9-10 le} capsule by 1318 781 00:00: mouth 00 daily. calcium-mag 2020-0 Yes [id number] Take as NPI:183 nesium-zinc 9-10 directed 1318 781 333-133-8.3 00:00: for daily mg Tab 00 dose. multivitami 2020-0 Yes [id number] 1{capsu Take 1 NPI:183 n capsule 9-10 le} capsule by 1318 781 00:00: mouth 00 daily. calcium-mag 2020-0 Yes [id number] Take as NPI:183 nesium-zinc 9-10 directed 1318 781 333-133-8.3 00:00: for daily mg Tab 00 dose. esomeprazol 2020-0 Yes NPI:18 3 e 40 mg 4-22 [id number] capsule 00:00: 00 esomeprazol 2020-0 Yes NPI:18 3 e 40 mg 4-22 [id number] capsule 00:00: 00 esomeprazol 2020-0 Yes NPI:18 3 e 40 mg 4-22 [id number] capsule 00:00: 00 esomeprazol 2020-0 Yes NPI:18 3 e 40 mg 4-22 [id number] capsule 00:00: 00 esomeprazol 2020-0 Yes NPI:18 3 e 40 mg 4-22 [id number] capsule 00:00: 00 esomeprazol 2020-0 Yes NPI:18 3 e 40 mg 4-22 [id number] capsule 00:00: 00 esomeprazol 2020-0 Yes NPI:18 3 e 40 mg 4-22 [id number] capsule 00:00: 00 esomeprazol 2020-0 Yes NPI:18 3 e 40 mg 4-22 [id number] capsule 00:00: 00 esomeprazol 2020-0 Yes NPI:18 3 e 40 mg 4-22 [id number] capsule 00:00: 00 esomeprazol 2020-0 Yes NPI:18 3 e 40 mg 4-22 [id number] capsule 00:00: 00 esomeprazol 2020-0 Yes NPI:18 3 e 40 mg 4-22 [id number] capsule 00:00: 00 ondansetron 2020-0 Yes [id number] 4mg Take 1 NPI:183 4 mg 2-10 tablet by [id number] disintegrat 00:00: mouth ing tablet 00 every 8 (eight) hours as needed for Nausea and Vomiting (N/V). ondansetron 2019-0 Yes [id number] 4mg Take 1 NPI:183 4 mg 2-10 tablet by [id number] disintegrat 00:00: mouth ing tablet 00 every 8 (eight) hours as needed for Nausea and Vomiting (N/V). ondansetron 2020-0 Yes [id number] 4mg Take 1 NPI:183 4 mg 2-10 tablet by [id number] disintegrat 00:00: mouth ing tablet 00 every 8 (eight) hours as needed for Nausea and Vomiting (N/V). ondansetron 2020-0 Yes [id number] 4mg Take 1 NPI:183 4 mg 2-10 tablet by [id number] disintegrat 00:00: mouth ing tablet 00 every 8 (eight) hours as needed for Nausea and Vomiting (N/V). ondansetron 2020-0 Yes [id number] 4mg Take 1 NPI:183 4 mg 2-10 tablet by [id number] disintegrat 00:00: mouth ing tablet 00 every 8 (eight) hours as needed for Nausea and Vomiting (N/V). ondansetron 2020-0 Yes [id number] 4mg Take 1 NPI:183 4 mg 2-10 tablet by [id number] disintegrat 00:00: mouth ing tablet 00 every 8 (eight) hours as needed for Nausea and Vomiting (N/V). ondansetron 2020-0 Yes [id number] 4mg Take 1 NPI:183 4 mg 2-10 tablet by [id number] disintegrat 00:00: mouth ing tablet 00 every 8 (eight) hours as needed for Nausea and Vomiting (N/V). ondansetron 2020-0 Yes [id number] 4mg Take 1 NPI:183 4 mg 2-10 tablet by [id number] disintegrat 00:00: mouth ing tablet 00 every 8 (eight) hours as needed for Nausea and Vomiting (N/V). ondansetron 2020-0 Yes [id number] 4mg Take 1 NPI:183 4 mg 2-10 tablet by [id number] disintegrat 00:00: mouth ing tablet 00 every 8 (eight) hours as needed for Nausea and Vomiting (N/V). ondansetron 2020-0 Yes [id number] 4mg Take 1 NPI:183 4 mg 2-10 tablet by [id number] disintegrat 00:00: mouth ing tablet 00 every 8 (eight) hours as needed for Nausea and Vomiting (N/V). ondansetron 2020-0 Yes [id number] 4mg Take 1 NPI:183 4 mg 2-10 tablet by [id number] disintegrat 00:00: mouth ing tablet 00 every 8 (eight) hours as needed for Nausea and Vomiting (N/V). lancets 2017-10 Yes USE TO NPI:1 83 gauge Misc 1-30 TEST BLOOD 131 8781 00:00: GLUCOSE 00 THREE TIMES DAILY ACCU-CHEK 2017-10 Yes USE TO NPI:18 3 SMARTVIEW 1-30 TEST BLOOD 1318 781 TEST STRIP 00:00: GLUCOSE strip 00 THREE TIMES DAILY 90 EASY TOUCH 2017-10 Yes USE TO NPI:1 83 ALCOHOL 1-30 TEST BLOOD [id number] 1 PREP PADS 00:00: GLUCOSE PadM 00 THREE TIMES DAILY 90 lancets 2017-10 Yes USE TO NPI:1 83 gauge Misc 1-30 TEST BLOOD 131 8781 00:00: GLUCOSE 00 THREE TIMES DAILY ACCU-CHEK 2017-10 Yes USE TO NPI:18 3 SMARTVIEW 1-30 TEST BLOOD 1318 781 TEST STRIP 00:00: GLUCOSE strip 00 THREE TIMES DAILY 90 EASY TOUCH 2017-10 Yes USE TO NPI:1 83 ALCOHOL 1-30 TEST BLOOD [id number] 1 PREP PADS 00:00: GLUCOSE PadM 00 THREE TIMES DAILY 90 lancets 2017-10 Yes USE TO NPI:1 83 gauge Misc 1-30 TEST BLOOD 131 8781 00:00: GLUCOSE 00 THREE TIMES DAILY ACCU-CHEK 2017-10 Yes USE TO NPI:18 3 SMARTVIEW 1-30 TEST BLOOD 1318 781 TEST STRIP 00:00: GLUCOSE strip 00 THREE TIMES DAILY 90 EASY TOUCH 2017-10 Yes USE TO NPI:1 83 ALCOHOL 1-30 TEST BLOOD [id number] 1 PREP PADS 00:00: GLUCOSE PadM 00 THREE TIMES DAILY 90 lancets 2017-10 Yes USE TO NPI:1 83 gauge Misc 1-30 TEST BLOOD 131 8781 00:00: GLUCOSE 00 THREE TIMES DAILY ACCU-CHEK 2017-10 Yes USE TO NPI:18 3 SMARTVIEW 1-30 TEST BLOOD 1318 781 TEST STRIP 00:00: GLUCOSE strip 00 THREE TIMES DAILY 90 EASY TOUCH 2017-10 Yes USE TO NPI:1 83 ALCOHOL 1-30 TEST BLOOD [id number] 1 PREP PADS 00:00: GLUCOSE PadM 00 THREE TIMES DAILY 90 lancets 2017-10 Yes USE TO NPI:1 83 gauge Misc 1-30 TEST BLOOD 131 8781 00:00: GLUCOSE 00 THREE TIMES DAILY ACCU-CHEK 2017-10 Yes USE TO NPI:18 3 SMARTVIEW 1-30 TEST BLOOD 1318 781 TEST STRIP 00:00: GLUCOSE strip 00 THREE TIMES DAILY 90 EASY TOUCH 2017-10 Yes USE TO NPI:1 83 ALCOHOL 1-30 TEST BLOOD [id number] 1 PREP PADS 00:00: GLUCOSE PadM 00 THREE TIMES DAILY 90 lancets 30 2017-10 Yes USE TO NPI:1 83 gauge Misc 1-30 TEST BLOOD 131 8781 00:00: GLUCOSE 00 THREE TIMES DAILY ACCU-CHEK 2017-10 Yes USE TO NPI:18 3 SMARTVIEW 1-30 TEST BLOOD 1318 781 TEST STRIP 00:00: GLUCOSE strip 00 THREE TIMES DAILY 90 EASY TOUCH 2017-10 Yes USE TO NPI:1 83 ALCOHOL 1-30 TEST BLOOD [id number] 1 PREP PADS 00:00: GLUCOSE PadM 00 THREE TIMES DAILY 90 lancets 30 2017-10 Yes USE TO NPI:1 83 gauge Misc 1-30 TEST BLOOD 131 [id number] 00:00: GLUCOSE 00 THREE TIMES DAILY ACCU-CHEK 2017-10 Yes USE TO NPI:18 3 SMARTVIEW 1-30 TEST BLOOD 1318 781 TEST STRIP 00:00: GLUCOSE strip 00 THREE TIMES DAILY 90 EASY TOUCH 2017-10 Yes USE TO NPI:1 83 ALCOHOL 1-30 TEST BLOOD [id number] 1 PREP PADS 00:00: GLUCOSE PadM 00 THREE TIMES DAILY 90 lancets 30 2017-10 Yes USE TO NPI:1 83 gauge Misc 1-30 TEST BLOOD 131 [id number] 00:00: GLUCOSE 00 THREE TIMES DAILY ACCU-CHEK 2017-10 Yes USE TO NPI:18 3 SMARTVIEW 1-30 TEST BLOOD 1318 781 TEST STRIP 00:00: GLUCOSE strip 00 THREE TIMES DAILY 90 EASY TOUCH 2017-10 Yes USE TO NPI:1 83 ALCOHOL 1-30 TEST BLOOD [id number] 1 PREP PADS 00:00: GLUCOSE PadM 00 THREE TIMES DAILY 90 lancets 30 2017-10 Yes USE TO NPI:1 83 gauge Misc 1-30 TEST BLOOD 131 [id number] 00:00: GLUCOSE 00 THREE TIMES DAILY ACCU-CHEK 2017-10 Yes USE TO NPI:18 3 SMARTVIEW 1-30 TEST BLOOD 1318 781 TEST STRIP 00:00: GLUCOSE strip 00 THREE TIMES DAILY 90 EASY TOUCH 2017-10 Yes USE TO NPI:1 83 ALCOHOL 1-30 TEST BLOOD [id number] 1 PREP PADS 00:00: GLUCOSE PadM 00 THREE TIMES DAILY 90 lancets 30 2017-10 Yes USE TO NPI:1 83 gauge Misc 1-30 TEST BLOOD 131 [id number] 00:00: GLUCOSE 00 THREE TIMES DAILY ACCU-CHEK 2017-10 Yes USE TO NPI:18 3 SMARTVIEW 1-30 TEST BLOOD 1318 781 TEST STRIP 00:00: GLUCOSE strip 00 THREE TIMES DAILY 90 EASY TOUCH 2017-10 Yes USE TO NPI:[id number] ALCOHOL 1-30 TEST BLOOD 107611 1 PREP PADS 00:00: GLUCOSE PadM 00 THREE TIMES DAILY 90 lancets 30 2017-10 Yes USE TO NPI:1 83 gauge Misc 1-30 TEST BLOOD 131 8781 00:00: GLUCOSE 00 THREE TIMES DAILY ACCU-CHEK 2017-10 Yes USE TO NPI:18 3 SMARTVIEW 1-30 TEST BLOOD [id number] 781 TEST STRIP 00:00: GLUCOSE strip 00 THREE TIMES DAILY 90 EASY TOUCH 2017-10 Yes USE TO NPI:1 83 ALCOHOL 1-30 TEST BLOOD [id number] 1 PREP PADS 00:00: GLUCOSE PadM 00 THREE TIMES DAILY 90 Immunizations Ordered Immunization Filled Immunization Date Status Commen ts Source Name Name Influenza Virus 2020-08-23 Completed NPI:[id number] Vaccine Quad .5 mL 00:00:00 IM 6+ MO Influenza Virus 2020-08-23 Completed NPI:[id number] Vaccine Quad .5 mL 00:00:00 IM 6+ MO Influenza Virus 2020-08-23 Completed NPI:[id number] Vaccine Quad .5 mL 00:00:00 IM 6+ MO Influenza Virus 2020-08-23 Completed NPI:[id number] Vaccine Quad .5 mL 00:00:00 IM 6+ MO Influenza Virus 2020-08-23 Completed NPI:[id number] Vaccine Quad .5 mL 00:00:00 IM 6+ MO Influenza Virus 2020-08-23 Completed NPI:[id number] Vaccine Quad .5 mL 00:00:00 IM 6+ MO Influenza Virus 2020-08-23 Completed NPI:[id number] Vaccine Quad .5 mL 00:00:00 IM 6+ MO Influenza Virus 2020-08-23 Completed NPI:[id number] Vaccine Quad .5 mL 00:00:00 IM 6+ MO Influenza Virus 2020-08-23 Completed NPI:[id number] Vaccine Quad .5 mL 00:00:00 IM 6+ MO Influenza Virus 2020-08-23 Completed NPI:[id number] Vaccine Quad .5 mL 00:00:00 IM 6+ MO Influenza Virus 2020-08-23 Completed NPI:[id number] Vaccine Quad .5 mL 00:00:00 IM 6+ MO Pneumococcal 2018-09-04 Completed NPI:[id number] 81 Polysaccharide, 00:00:00 PPSV23 (PNEUMOVAX) Influenza Virus 2018-09-04 Completed NPI:[id number] Vaccine Quad .5 mL 00:00:00 IM 6+ MO Pneumococcal 2018-09-04 Completed NPI:[id number] 81 Polysaccharide, 00:00:00 PPSV23 (PNEUMOVAX) Influenza Virus 2018-09-04 Completed NPI:[id number] Vaccine Quad .5 mL 00:00:00 IM 6+ MO Pneumococcal 2018-09-04 Completed NPI:[id number] 81 Polysaccharide, 00:00:00 PPSV23 (PNEUMOVAX) Influenza Virus 2018-09-04 Completed NPI:[id number] Vaccine Quad .5 mL 00:00:00 IM 6+ MO Pneumococcal 2018-09-04 Completed NPI:[id number] 81 Polysaccharide, 00:00:00 PPSV23 (PNEUMOVAX) Influenza Virus 2018-09-04 Completed NPI:[id number] Vaccine Quad .5 mL 00:00:00 IM 6+ MO Pneumococcal 2018-09-04 Completed NPI:[id number] 81 Polysaccharide, 00:00:00 PPSV23 (PNEUMOVAX) Influenza Virus 2018-09-04 Completed NPI:[id number] Vaccine Quad .5 mL 00:00:00 IM 6+ MO Pneumococcal 2018-09-04 Completed NPI:[id number] 81 Polysaccharide, 00:00:00 PPSV23 (PNEUMOVAX) Influenza Virus 2018-09-04 Completed NPI:[id number] Vaccine Quad .5 mL 00:00:00 IM 6+ MO Pneumococcal 2018-09-04 Completed NPI:[id number] 81 Polysaccharide, 00:00:00 PPSV23 (PNEUMOVAX) Influenza Virus 2018-09-04 Completed NPI:[id number] Vaccine Quad .5 mL 00:00:00 IM 6+ MO Pneumococcal 2018-09-04 Completed NPI:[id number] 81 Polysaccharide, 00:00:00 PPSV23 (PNEUMOVAX) Influenza Virus 2018-09-04 Completed NPI:[id number] Vaccine Quad .5 mL 00:00:00 IM 6+ MO Pneumococcal 2018-09-04 Completed NPI:[id number] 81 Polysaccharide, 00:00:00 PPSV23 (PNEUMOVAX) Influenza Virus 2018-09-04 Completed NPI:[id number] Vaccine Quad .5 mL 00:00:00 IM 6+ MO Pneumococcal 2018-09-04 Completed NPI:[id number] 81 Polysaccharide, 00:00:00 PPSV23 (PNEUMOVAX) Influenza Virus 2018-09-04 Completed NPI:[id number] Vaccine Quad .5 mL 00:00:00 IM 6+ MO Pneumococcal 2018-09-04 Completed NPI:[id number] 81 Polysaccharide, 00:00:00 PPSV23 (PNEUMOVAX) Influenza Virus 2018-09-04 Completed NPI:[id number] Vaccine Quad .5 mL 00:00:00 IM 6+ MO Vital Signs Vital Name Observation Time Observation Value Comments Source Systolic blood pressure 2021-12-25 03:18:00 162 mm[Hg] Diastolic blood 2021-12-25 03:18:00 99 mm[Hg] NPI:1 [id number] pressure Heart rate 2021-12-25 03:18:00 78 /min NPI:[id number] Respiratory rate 2021-12-25 03:18:00 20 /min Oxygen saturation in 2021-12-25 03:18:00 95 /min Arterial blood by Pulse oximetry Body temperature 2021-12-25 00:22:00 35.89 Char Body height 2021-12-25 00:22:00 167.6 cm NPI:[id number] Body weight 2021-12-25 00:22:00 90.719 kg NPI:[id number] BMI 2021-12-25 00:22:00 32.28 kg/m2 NPI:[id number] Procedures Procedure Date / Time Performed Performing Clinician [facility] ASSIGNMENT OF BENEFITS 2021-12-25 01:03:46 Doctor Unassigned, No Name NOTICE OF PRIVACY 2021-12-25 00:10:01 Doctor Unassigned, No PRACTICES Name CONSENT/REFUSAL FOR 2021-12-25 00:09:38 Doctor Unassigned, No AURIST I:[id number] DIAGNOSIS AND TREATMENT Name DME/SUPPLY JUSTIFICATION 2021-12-07 06:01:00 Doctor Unassigned, No Name DIABETES TESTING REPORTS 2021-10-26 06:01:00 Doctor Unassigned, No Name Encounters Start End Encounter Admission Attending Care Care Encounter Source Date/Time Date/Time Type Type Clinicians Facility Department ID 2022-02-28 2022-02-28 Outpatient Anthony KEY [facility] [id number] NPI:183 08:30:00 08:30:00 LAUREN [id number] 1 2022-02-09 2022-02-09 Telephone MichaelRUST ..840.114 [id number] NPI:183 00:00:00 00:00:00 [facility] 350.1.13.10 [id number] MA[place] 4.2.7.2.686 JORGE?BLEA [id number] [place] [address] MEDICAL OFFICE [facility] 2022-02-08 2022-02-08 Telephone Michael [facility] .2.840.114 [id number] NPI:183 00:00:00 00:00:00 [facility] 350.1.13.10 [id number] [place] 4.2.7.2.686 JORGE?BLEA [id number] [place] [address] MEDICAL OFFICE [facility] 2022-01-30 2022-01-30 Outpatient DANIEL GUAJARDO [facility] [id number] NPI:183 11:00:00 11:00:00 DANIEL RODRIGUEZ [id number] 5615-04-25 2022-01-30 Outpatient DANIEL GUAJARDO [facility] [id number] NPI:183 11:00:00 11:00:00 DANIEL RODRIGUEZ [id number] 7104-04-14 2022-01-19 Refill Jr [facility] [id number] NPI:183 00:00:00 00:00:00 Senddanyel MOTLEY 350.1.13.10 [id number] [facility] 4.2.7.2.686 PROFESSIO [id number] [address] 2022-01-17 2022-01-[facility] [address] [id number] NPI:183 00:00:00 00:00:00 [facility] 350.1.13.10 [id number] [place] 4.2.7.2.686 JORGE?BLEA [id number] [place] [address] MEDICAL OFFICE [facility] 2022-01-17 2022-01-17 Refill [facility] [id number] NPI:183 00:00:00 00:00:00 [facility] 350.1.13.10 [id number] [place] 4.2.7.2.686 JORGE?BLEA [phone] [place] [address] MEDICAL OFFICE [facility] 2021-12-29 2021-12-29 [facility] [id number] NPI:183 10:30:00 10:30:00 GREG [id number] 1 2021-12-24 2021-12-24 Emergency X [facility] ERT [id number] NPI:183 19:26:00 22:22:00 TAMEKA [id number] 1 2021-12-24 2021-12-24 Emergency [place] [id number] NPI:183 19:26:00 22:22:00 Tameka MOTLEY 350.1.13.10 [id number] [place] 4.2.7.2.686 [place] [id number] 084 2021-12-12 2021-12-12 Telephone JrRUST [id number] NPI:183 00:00:00 00:00:00 Zeny MOTLEY 350.1.13.10 [id number] [place] 4.2.7.2.686 PROFESS[place] [id number] [address] 2021-12-07 2021-12-07 Telephone [facility] [id number] NPI:183 00:00:00 00:00:00 Anamariaerik ASENCIOTON 350.1.13.10 [id number] [place] 4.2.7.2.686 [facility] [id number] [facility] 220 [facility] 2021-12-07 2021-12-07 Orders Doctor RATLIFF 1.2.840.114 [id number] NPI:183 00:00:00 00:00:00 Only Unassigned, MARCO 350.1.13.10 [id number] [place] [facility] 4.2.7.2.686 [id number] 2021-12-05 2021-12-05 Telephone [facility] [id number] NPI:183 00:00:00 00:00:00 Anamaria GUERIN 350.1.13.10 [id number] [place]AY[place] 4.2.7.2.686 [place] [id number] [place] [facility] 2021-10-26 2021-10-26 Orders Doctor RATLIFF 1.2.840.114 [id number] NPI:183 00:00:00 00:00:00 Only Unassigned, MARCO 350.1.13.10 [id number] [place] [id number] [id number] 009 2021-09-09 2021-09-09 Outpatient FERGUSON_JO [facility] [address] [place] 05:02:00 05:02:00 HN 1203 [facility] 2021-01-18 2021-01-18 Outpatient GUU_SHENG_Y [facility] [address] [place] 03:31:00 03:[place] [id number] [facility] 2021-01-16 2021-01-16 Outpatient GUU_SHENG_Y [facility] [address] [place] 03:17:00 03:17:[place] [id number] [facility] 2021-01-16 2021-01-16 Outpatient GUU_SHENG_Y [facility] [address] [place] 03:17:00 03:17:00 [place] [address] [facility] 2020-12-15 2020-12-15 Outpatient MARIELLA_SHENG_Y [facility] 113 [id number] [place] 04:24:00 04:24:00 [place] [address] [facility] 2020-11-25 2020-11-25 Refill Shahid [facility] 1.2.840.114 [id number] 00:00:00 00:00:00 Lauren Motley 350.1.13.10 [place] 4.2.7.2.686 Professio [id number] nal 220 [facility] 2020-11-25 2020-11-25 Refill JrRUST 1.2.840.114 [id number] 00:00:00 00:00:00 Sendil TriceAndreasTimAndreas Motley 350.1.13.10 [place] 4.2.7.2.686 Professio [id number] nal 059 [facility] 2020-11-25 2020-11-25 Telephone Vinod Flores [facility] 1.2.840.11 [id number] 00:00:00 00:00:00 R Y 350.1.13.10 [facility] 4.2.7.2.686 [facility] [id number] BLDG. 136 2020-11-11 2020-11-11 Office ArmenRUST 1.2.840.114 [id number] 09:07:13 15:23:52 Visit [facility] 350.1.13.10 [facility] 4.2.7.2.686 [facility] [id number] [id number] Results This patient has no known results.
[2022-02-10] MEDS ORDERED: ASPIRIN EC 81 MG TAB PO ONE (21:46)
[2022-02-10] MEDS ORDERED: ONDANSETRON 4 MG/2 ML VIAL ONE (21:46)
[2022-02-10] MEDS ORDERED: MORPHINE 4 MG/ML SYR ONE (21:46)
--- NOTE | 2022-02-10 22:01 | RAD REPORT ---
EXAM DESCRIPTION: [facility]10/2022 9:47 pm CLINICAL HISTORY: Right leg pain COMPARISON: None. FINDINGS: Right common femoral, superficial femoral, popliteal and right posterior tibial veins are compressible and demonstrate augmentation. Doppler demonstrates good flow. Grayscale, color and spectral analysis performed on all vessels IMPRESSION: No evidence of deep venous thrombosis involving the right lower extremity.
[2022-02-10 22:05] LABS: Absolute Lymphocytes (CBC) 3.1 K/uL (0.7-4.9); Hematocrit 36.3 % (36.0-45.0); Lymphocytes % 35.9 % (15.3-44.8); MPV 6.9 fL (7.6-11.3); RBC Red Blood Cell Count 4.02 M/uL (3.86-4.86)
[2022-02-10 22:09] LABS: Protime INR 0.9
--- NOTE | 2022-02-10 22:18 | RAD REPORT ---
EXAM DESCRIPTION: Tamir Single View02/10/2022 10:10 pm CLINICAL HISTORY: Chest pain COMPARISON: none FINDINGS: The lungs appear clear of acute infiltrate. The heart is normal size IMPRESSION: No acute abnormalities displayed
[2022-02-10 22:25] LABS: Albumin 3.9 g/dL (3.4-5.0); Bilirubin Direct 0.1 mg/dL (0-0.2); Bilirubin Total 0.4 mg/dL (0.2-1.0); Magnesium 1.9 mg/dL (1.8-2.4); Potassium 4.4 mmol/L (3.5-5.1); Protein, Total 7.1 g/dL (6.4-8.2); Troponin High Sensitivity 13.4 pg/mL (<58.9)
--- NOTE | 2022-02-11 00:56 | EDPHYS ---
Physician Documentation [facility] Name: Lauren Nolen Age: 66 yrs Sex: Female : 1955 Arrival Date: 02/10/2022 Time: 21:12 Bed 20 Private MD: ED Physician Gavin Felipe HPI: 02/10 21:30 This 66 yrs old Black Female presents to ER via EMS with complaints of Leg Pain - RIGHT.cp 21:30 The patient presents with pain, that is acute. The complaints affect the right leg. cp Context: resulted from the patient falling, the patient can fully bear weight, the patient is able to ambulate. Onset: The symptoms/episode began/occurred 1 week(s) ago. 21:30 Associated signs and symptoms: Pertinent positives: right hip pain, chest pain. cp Historical: - Allergies: 21:34 Demerol (Hives, rash); victorina - PMHx: 21:34 diabetes mellitus; GERD; Hypertension; victorina - Immunization history:: Client reports receiving the 2nd dose of the Covid vaccine. - Social history:: Smoking status: Patient reports the use of cigarette tobacco products, smokes one-half pack cigarettes per day, Patient uses alcohol, occasionally. ROS: 21:35 Eyes: Negative for injury, pain, redness, and discharge. cp 21:35 Constitutional: Negative for body aches, chills, fever, poor PO intake. 21:35 MS/extremity: Positive for pain, of the right leg, Negative for injury or acute deformity, decreased range of motion, paresthesias. 21:35 ENT: Negative for drainage from ear(s), ear pain, sore throat, difficulty swallowing, cp difficulty handling secretions. 21:35 Neck: Negative for pain with movement, pain at rest, stiffness. 21:35 Cardiovascular: Positive for chest pain, Negative for edema, palpitations. 21:35 Respiratory: Negative for cough, shortness of breath, wheezing. 21:35 Abdomen/GI: Negative for abdominal pain, nausea, vomiting, and diarrhea. 21:35 Back: Negative for pain at rest, pain with movement. 21:35 Neuro: Negative for altered mental status, headache, numbness, weakness. 21:35 All other systems are negative. Exam: 21:33 ECG was reviewed by the Attending Physician. cp 21:40 Constitutional: The patient appears in no acute distress, alert, awake, cp non-diaphoretic, non-toxic, well developed, well nourished. 21:40 Head/Face: Normocephalic, atraumatic. cp 21:40 Eyes: Periorbital structures: appear normal, Conjunctiva: normal, no exudate, no cp injection, Sclera: no appreciated abnormality, Lids and lashes: appear normal, bilaterally. 21:40 ENT: External ear(s): are unremarkable, Nose: is normal, Mouth: Lips: moist, Oral mucosa: pink and intact, moist, Posterior pharynx: Airway: no evidence of obstruction, patent. 21:40 Neck: ROM/movement: is normal, is supple, without pain, no range of motions limitations. 21:40 Chest/axilla: Inspection: normal. 21:40 Cardiovascular: Rate: normal, Rhythm: regular, Edema: is not appreciated, JVD: is not appreciated. 21:40 Respiratory: the patient does not display signs of respiratory distress, Respirations: normal, no use of accessory muscles, no retractions, labored breathing, is not present, Breath sounds: are clear throughout, no decreased breath sounds, no stridor, no wheezing. 21:40 Abdomen/GI: Inspection: abdomen appears normal, Palpation: abdomen is soft and non-tender, in all quadrants. 21:40 Back: pain, is absent, ROM is normal. cp 21:40 Musculoskeletal/extremity: Extremities: grossly normal except: noted in the right leg: pain, ROM: limited active range of motion due to pain, in the right hip, Pulses: noted to be 2+ in the right dorsalis pedis artery, the right leg Sensation intact. 21:40 Skin: cellulitis, is not appreciated, no rash present. Vital Signs: 21:32 BP 155 / 94; Pulse 93; Resp 24; Temp 97.5; Pulse Ox 99% on R/A; Pain 9/10; victorina 21:37 BP 152 / 109; Pulse 80; Resp 22; Pulse Ox 100% on R/A; Pain 9/10; victorina 22:09 BP 135 / 79; Pulse 78; Resp 18; Pulse Ox 99% on R/A; Pain 2/10; victorina 22:44 Pulse 84; Resp 18; Pulse Ox 99% on R/A; victorina 0507 01:00 BP 173 / 107; Pulse 64; Resp 18; Pulse Ox 99% on R/A; victorina 01:20 BP 109 / 82; Pulse 72; Resp 16; Pulse Ox 98% on R/A; victorina 01:47 BP 132 / 71; Pulse 68; Resp 16; Pulse Ox 99% on R/A; Pain 0/10; victorina 05:09 BP 145 / 90; Pulse 72; Resp 18; Temp 98.3; Pulse Ox 98% on R/A; Pain 0/10; victorina 05:59 BP 127 / 79; Pulse 71; Resp 18; Pulse Ox 98% on R/A; Pain 0/10; victorina 07:19 BP 119 / 96; Pulse 78; Temp 98.1; Pulse Ox 98% ; mb7 MDM: 02/10 00:45 Data reviewed: vital signs, nurses notes, lab test result(s), EKG, radiologic studies, cp plain films, ultrasound. 00:45 Test interpretation: by ED physician or midlevel provider: ECG, plain radiologic cp studies. Response to treatment: the patient's symptoms have markedly improved after treatment, and as a result, I will admit patient. 21:19 Patient medically screened. 22:00 Differential diagnosis: dislocation, open fracture, closed fracture, contusion, cp tendonitis, DVT, cellulitis, acute TX, pulmonary embolism. 02/11 00:55 Physician consultation: Robert Lewis was called at 00:55, was contacted at 00:55, regarding admission, to the telemetry unit. patient's condition. 02/10 21:24 Order name: Basic Metabolic Panel; Complete Time: 22:44 02/10 22:44 Interpretation: Normal except: CL 112; GLUC 111; BUN 22; CRE 1.40; GFR 46. 02/10 21:24 Order name: CBC with Diff; Complete Time: 22:44 02/10 22:45 Interpretation: Normal except: MPV 6.9; EOSINOPHIL % 6.8; EOSA 0.6. 02/10 21:24 Order name: LFT's; Complete Time: 22:44 02/10 22:46 Interpretation: Reviewed. 02/10 21:24 Order name: Magnesium; Complete Time: 22:44 02/10 21:24 Order name: NT PRO-BNP; Complete Time: 22:44 02/10 21:24 Order name: PT-INR; Complete Time: 22:44 cp 02/10 21:24 Order name: Troponin HS; Complete Time: 22:44 cp 02/10 22:46 Interpretation: Reviewed. cp 02/11 00:42 Order name: Troponin High Sensitivity cp 02/11 01:07 Order name: COVID-19/FLU A+B (Document "Date of Onset" if Symptomatic) lp1 02/11 02:37 Order name: COVID-19/FLU A+B/RSV EDMS 02/11 04:06 Order name: CBC with Automated Diff EDMO 02/11 04:40 Order name: Comprehensive Metabolic Panel EDMO 02/11 04:40 Order name: Troponin High Sensitivity EDMO 02/11 04:40 Order name: Lipid Profile EDMO 02/10 21:24 Order name: US Extremity Venous Unilateral Ltd; Complete Time: 22:44 cp 02/10 22:45 Interpretation: Report reviewed. cp 02/10 21:24 Order name: XRAY Hip RIGHT 2 view cp 02/10 21:24 Order name: XRAY Chest (1 view); Complete Time: 22:44 cp 02/10 21:24 Order name: EKG; Complete Time: 21:25 cp 02/10 21:24 Order name: Cardiac monitoring; Complete Time: 21:55 cp 02/10 21:24 Order name: EKG - Nurse/Tech; Complete Time: 21:38 cp 02/10 21:24 Order name: IV Saline Lock; Complete Time: 21:55 cp 02/10 21:24 Order name: Labs collected and sent; Complete Time: 21:55 cp 02/11 07:30 Order name: Glucose, Ancillary Testing EDMO 02/11 11:52 Order name: Glucose, Ancillary Testing EDMO 02/11 11:57 Order name: Troponin High Sensitivity EDMO 02/10 21:24 Order name: O2 Per Protocol; Complete Time: 21:55 cp 02/10 21:24 Order name: O2 Sat Monitoring; Complete Time: 21:55 cp EC/06 21:33 Rate is 83 beats/min. Rhythm is regular. MO interval is normal. QRS interval is normal. cp QT interval is normal. T waves are Inverted in lead aVR. Interpreted by me. Reviewed by me. Administered Medications: 21:55 Drug: Aspirin Chewable Tablet 324 mg Route: PO; victorina 22:23 Follow up: Response: No adverse reaction victorina 21:56 Drug: morphine 4 mg Route: IVP; Site: right antecubital; victorina 22:24 Follow up: Response: No adverse reaction victorina 21:56 Drug: Zofran (Ondansetron) 4 mg Route: IVP; Site: right antecubital; victorina 22:23 Follow up: Response: No adverse reaction victorina 02/11 01:19 Drug: morphine 4 mg Route: IVP; Site: right antecubital; victorina 01:19 Follow up: Response: Pain is decreased victorina 01:47 Drug: Benadryl (diphenhydrAMINE) 25 mg Route: IVP; Site: right antecubital; victorina 04:31 Follow up: Response: No adverse reaction victorina Disposition Summary: 02/11/22 00:55 Hospitalization Ordered Hospitalization Status: Observation cp Provider: Eddie Roberto cp Condition: Stable cp Problem: new cp Symptoms: have improved cp Bed/Room Type: Standard cp Location: [facility] ER HOLD(02/11/22 02:07) Room Assignment: ERHOLD-(02/11/22 02:07) Diagnosis - Chest pain, unspecified cp - Pain in right leg cp Discharge Instructions: - Discharge Summary Sheet cp - Nonspecific Chest Pain, Adult cp - Musculoskeletal Pain cp - Hip Pain cp - Aspirin and Your Heart cp Forms: - Medication Reconciliation Form cp - SBAR form cp Prescriptions: - Mobic 7.5 mg Oral Tablet - take 1 tablet by ORAL route once daily take with food; 20 tablet; Refills: 0, cp Product Selection Permitted - Cyclobenzaprine 10 mg Oral Tablet - take 1 tablet by ORAL route every 8 hours As needed; 15 tablet; Refills: 0, cp Product Selection Permitted Addendum: 02/19/2022 19:17 Co-signature as Attending Physician, Anthony Garcia MD. [facility] Signatures: Dispatcher [employer] EDMS Miranda Mensah RN RN mw Attema, Lee, FNP-Gonzales MARTINESP-Cla1 Gavin Arango PA PA Anthony Paniagua MD MD 7 Bethany Banda RN RN bo Corrections: (The following items were deleted from the chart) 02/11 00:32 02/10 22:00 This 66 yrs old Black Female presents to ER via EMS with complaints of Leg cp Pain - RIGHT. cp 02/11 00:34 02/10 21:30 Context: resulted from an unknown cause, cp cp 02/11 00:35 02/10 22:05 Constitutional: Negative for body aches, chills, fever, poor PO intake, cp cp 02/11 00:35 02/10 22:05 MS/extremity: Positive for pain, of the right leg, Negative for injury or cp acute deformity, decreased range of motion, paresthesias, cp 02/11 00:35 02/10 22:05 Eyes: Negative for injury, pain, redness, and discharge, cp cp 02/11 02:07 00:55 Telemetry/MedSurg (observation) cp mw 02: 00:55 cp mw
--- NOTE | 2022-02-11 00:56 | ER ---
Nurse's Notes [facility] Name: Lauren Nolen Age: 66 yrs Sex: Female : 1955 Arrival Date: 02/10/2022 Time: 21:12 Bed 20 Private MD: Diagnosis: Chest pain, unspecified;Pain in right leg Presentation: 02/10 21:13 Chief complaint: Patient states: right leg pain x 1 week. The pt is animated, calling victorina "Oh, Lord" repeatedly and loudly, on arrival. 21:32 Coronavirus screen: Vaccine status: Patient reports receiving the 2nd dose of the covid victorina vaccine. Ebola Screen: Patient negative for fever greater than or equal to 101.5 degrees Fahrenheit, and additional compatible Ebola Virus Disease symptoms Patient denies exposure to infectious person. Patient denies travel to an Ebola-affected area in the 21 days before illness onset. Initial Sepsis Screen: Does the patient meet any 2 criteria? No. Patient's initial sepsis screen is negative. Initial Sepsis Screen: Does the patient have a suspected source of infection? No. Patient's initial sepsis screen is negative. Risk Assessment: Do you want to hurt yourself or someone else? Patient reports no desire to harm self or others. Onset of symptoms was February 03, 2022. 21:32 Method Of Arrival: EMS victorina 21:32 Acuity: [place] 3 victorina Triage Assessment: 21:34 General: Appears in no apparent distress. pt became histrionic when EMS left. Behavior victorina is restless. Historical: - Allergies: 21:34 Demerol (Hives, rash); victorina - PMHx: 21:34 diabetes mellitus; GERD; Hypertension; victorina - Immunization history:: Client reports receiving the 2nd dose of the Covid vaccine. - Social history:: Smoking status: Patient reports the use of cigarette tobacco products, smokes one-half pack cigarettes per day, Patient uses alcohol, occasionally. Screenin:37 Abuse screen: Denies threats or abuse. Denies injuries from another. Nutritional victorina screening: No deficits noted. Tuberculosis screening: No symptoms or risk factors identified. Fall Risk None identified. Assessment: 21:35 Reassessment: Patient appears in no apparent distress at this time. Pt was asked to victorina remain as still as possible, when the EKG was being performed. She is coughing, spitting into a towel, constant motion of wiggling her feet, arms, etc. Pain: Complains of pain in scalp, chest, right leg, left leg and neck. 02/11 05:09 Reassessment: The pt was given a "hospital bed" for her comfort. She is sleeping well. victorina Vital Signs: 02/10 21:32 BP 155 / 94; Pulse 93; Resp 24; Temp 97.5; Pulse Ox 99% on R/A; Pain 9/10; victorina 21:37 BP 152 / 109; Pulse 80; Resp 22; Pulse Ox 100% on R/A; Pain 9/10; victorina 22:09 BP 135 / 79; Pulse 78; Resp 18; Pulse Ox 99% on R/A; Pain 2/10; victorina 22:44 Pulse 84; Resp 18; Pulse Ox 99% on R/A; victorina 02/11 01:00 BP 173 / 107; Pulse 64; Resp 18; Pulse Ox 99% on R/A; victorina 01:20 BP 109 / 82; Pulse 72; Resp 16; Pulse Ox 98% on R/A; victorina 01:47 BP 132 / 71; Pulse 68; Resp 16; Pulse Ox 99% on R/A; Pain 0/10; victorina 05:09 BP 145 / 90; Pulse 72; Resp 18; Temp 98.3; Pulse Ox 98% on R/A; Pain 0/10; victorina 05:59 BP 127 / 79; Pulse 71; Resp 18; Pulse Ox 98% on R/A; Pain 0/10; victorina 07:19 BP 119 / 96; Pulse 78; Temp 98.1; Pulse Ox 98% ; mb7 ED Course: 02/10 21:12 Patient arrived in ED. wm 21:13 Bethany Banda, NOMAN is Primary Nurse. victorina 21:14 Gavin Arango PA is PHCP. cp 21:14 Anthony Garcia MD is Attending Physician. cp 21:34 Triage completed. victorina 21:37 Patient has correct armband on for positive identification. Bed in low position. Call victorina light in reach. Side rails up X2. Pulse ox on. NIBP on. Door closed. Warm blanket given. Pillow given. 21:49 US Extremity Venous Unilateral Ltd In Process Unspecified. EDMS 21:55 Basic Metabolic Panel Sent. victorina 21:55 CBC with Diff Sent. victorina 21:55 LFT's Sent. victorina 21:55 Magnesium Sent. victorina 21:56 NT PRO-BNP Sent. victorina 21:56 PT-INR Sent. victorina 21:56 Troponin HS Sent. victorina 22:08 Inserted saline lock: 20 gauge in right antecubital area, using aseptic technique. victorina Blood collected. 22:12 XRAY Hip RIGHT 2 view In Process Unspecified. EDMS 22:12 XRAY Chest (1 view) In Process Unspecified. EDMS 22:23 LFT's Sent. victorina 22:23 Basic Metabolic Panel Sent. victorina 22:23 Magnesium Sent. victorina 22:23 NT PRO-BNP Sent. victorina 22:23 Troponin HS Sent. victorina 22:24 Arm band placed on. victorina 22:24 No provider procedures requiring assistance completed. victorina 02/11 00:54 Eddie Roberto is Hospitalizing Provider. cp 01:19 Troponin High Sensitivity Sent. victorina 01:38 Troponin High Sensitivity Sent. victorina 01:47 COVID-19/FLU A+B (Document "Date of Onset" if Symptomatic) Sent. victorina 07:47 Attending Physician role handed off by Anthony Garcia MD kristen 07:47 Gavin Felipe MD is Attending Physician. kristen 13:09 IV discontinued, intact, bleeding controlled, No redness/swelling at site. Pressure ll1 dressing applied. Administered Medications: 02/10 21:55 Drug: Aspirin Chewable Tablet 324 mg Route: PO; victorina 22:23 Follow up: Response: No adverse reaction victorina 21:56 Drug: morphine 4 mg Route: IVP; Site: right antecubital; victorina 22:24 Follow up: Response: No adverse reaction victoirna 21:56 Drug: Zofran (Ondansetron) 4 mg Route: IVP; Site: right antecubital; victorina 22:23 Follow up: Response: No adverse reaction victorina 02/11 01:19 Drug: morphine 4 mg Route: IVP; Site: right antecubital; victorina 01:19 Follow up: Response: Pain is decreased victorina 01:47 Drug: Benadryl (diphenhydrAMINE) 25 mg Route: IVP; Site: right antecubital; victorina 04:31 Follow up: Response: No adverse reaction victorina Outcome: 02/10 22:24 Condition: stable victorina 02/11 00:55 Decision to Hospitalize by Provider. cp 13:09 Admitted to Tele 1 13:09 Instructed on the need for admit. 13:10 Patient left the ED. access [facility] [place] Signatures: Dispatcher [employer] Gavin Foley MD MD cha Page, Corey, PA Jaja Weber cp, NOMAN RN 1 Mariely Mendoza Mary 7 Bethany Banda RN RN victorina
[2022-02-11] MEDS ORDERED: MORPHINE 4 MG/ML SYR ONE (01:09)
[2022-02-11] MEDS ORDERED: DIPHENHYDRAMINE 50 MG/ML VIAL ONE (01:41)
--- NOTE | 2022-02-11 01:45 | P.HP ---
Certification for Inpatient Patient admitted to: Observation With expected LOS: <2 Midnights Patient will require the following post-hospital care: None Practitioner: I am a practitioner with admitting privileges, knowledge of patient current condition, hospital course, and medical plan of care. Services: Services provided to patient in accordance with Admission requirements found in Title 42 Section 412.3 of the Code of Federal Regulations Patient History Date of Service: 02/11/22 Reason for admission: Chest pain History of Present Illness: 66-year-old female patient with history of CAD, diabetes mellitus type 2, GERD, hypertension presents emergency department for chest pain, right leg pain. Patient reports she is had intermittent chest pain over the course of last 1 to 2 weeks reports history of CAD with his last heart cath/stent placement in 2018 at [facility]. Patient also reports that this morning she fell from a chair after 1 leg slipped out from under her. She was evaluated in the emergency department her labs were remarkable for stable CKD 3 initial troponin negative EKG without ST elevation chest x-ray unremarkable patient also had imaging of her right hip which was negative for any fractures as well as a DVT study the right lower extremity which was negative for acute DVT. ED provider wishes to admit to observation for ACS rule out. Allergies meperidine [From Demerol] Allergy (Verified 11/19/20 14:25) Hives Home Medications: Acetaminophen [Pain Reliever] 500 mg PO BID 05/20/20 Aspirin [Aspirin EC 81 MG] 81 mg PO DAILY 05/20/20 Atorvastatin Calcium 40 mg PO BEDTIME 05/20/20 Carvedilol [Coreg] 25 mg PO BID 05/20/20 Isosorbide Mononitrate [Isosorbide Mononitrate ER] 60 mg PO DAILY 05/20/20 Losartan Potassium [Cozaar] 50 mg PO BID 05/20/20 Magnesium Oxide [Mag 0X Tab] 400 mg PO DAILY 05/20/20 Spironolactone [Aldactone] 25 mg PO DAILY 05/20/20 Tramadol HCl [Ultram] 50 mg PO PRN PRN 05/20/20 predniSONE [Deltasone] 20 mg PO DAILY 05/20/20 Dulaglutide [Trulicity] 1 unit SQ 11/19/20 Insulin Glargine,Hum.rec.anlog [Lantus Solostar] 20 units SQ BID 11/19/20 - Past Medical/Surgical History -: GERD -: Hypertension -: CAD -: Diabetes mellitus type 2 -: Stents Psychosocial/ Personal History: Patient lives at home, alone - Family History Brother -: Stroke - Social History Smoking Status: Current every day smoker Counseled patient to stop smoking for: less than 10 minutes Smoking therapy provided: No (The patient declined) Alcohol use: Yes CD- Drugs: No Caffeine use: Yes Place of Residence: Home Review of Systems 10-point ROS is otherwise unremarkable Cardiovascular: Chest Pain, As per HPI Musculoskeletal: Leg Pain Physical Examination - Physical Exam General: Alert, In no apparent distress, Oriented x3 HEENT: Atraumatic, PERRLA, Mucous membr. moist/pink, EOMI, Sclerae nonicteric Neck: Supple, 2+ carotid pulse no bruit, No LAD, Without JVD or thyroid abnormality Respiratory: Clear to auscultation bilaterally, Normal air movement Cardiovascular: Regular rate/rhythm, Normal S1 S2 Gastrointestinal: Normal bowel sounds, No tenderness Musculoskeletal: No tenderness Integumentary: No rashes Neurological: Normal speech, Normal strength at 5/5 x4 extr, Normal tone, Normal affect - Studies Laboratory Data (last 24 hrs) 02/10/22 21:56: PT 9.9, INR 0.90 02/10/22 21:56: WBC 8.6, Hgb 12.3, Hct 36.3, Plt Count 359 02/10/22 21:56: Sodium 142, Potassium 4.4, BUN 22 H, Creatinine 1.40 H, Glucose 111 H, Magnesium 1.9, Total Bilirubin 0.4, AST 17, ALT 26, Alkaline Phosphatase 88 Assessment and Plan - Plan Assessment: Chest pain rule out ACShistory of CAD Diabetes mellitus type 2 Hypertension GERD Plan: Chest pain rule out ACShistory of CAD: Monitor on telemetry, trend troponin, cardiology consult in place. Aspirin, statin, beta-bruce therapy. As needed morphine. Patient reports that her last heart catheterization was in 2018 with 2 stent placement. Diabetes mellitus type 2: ACH S Accu-Chek, sliding scale insulin Hypertension: Continue home medication, initiated beta-bruce therapy for the time being. GERD: Continue home medications DVT PPX: Lovenox Code status: Full Discharge Plan: Home Plan to discharge in: 24 Hours - Advance Directives Does patient have a Living Will: No Does patient have a Durable POA for Healthcare: No - Code Status/Comfort Care Code Status Assessed: Yes (Full code) Critical Care: No Time Spent Managing Pts Care (In Minutes): 55
[2022-02-11] MEDS ORDERED: TRAMADOL HCL 50 MG TAB PO PRN (02:11)
[2022-02-11 02:25] LABS: SARS-COV-2 RT PCR NEGATIVE (NEGATIVE)
[2022-02-11 02:28] VITALS: BMI 34.1
[2022-02-11] MEDS ORDERED: ONDANSETRON 4 MG/2 ML VIAL IV PRN (04:00)
[2022-02-11 04:05] LABS: Absolute Lymphocytes (CBC) 2.6 K/uL (0.7-4.9); Hematocrit 35.1 % (36.0-45.0); Lymphocytes % 35.4 % (15.3-44.8); MPV 6.8 fL (7.6-11.3); RBC Red Blood Cell Count 3.86 M/uL (3.86-4.86)
[2022-02-11 04:40] LABS: Albumin 3.5 g/dL (3.4-5.0); Bilirubin Total 0.4 mg/dL (0.2-1.0); Potassium 4.7 mmol/L (3.5-5.1); Protein, Total 6.5 g/dL (6.4-8.2); Troponin High Sensitivity 14.8 pg/mL (<58.9)
[2022-02-11] MEDS ORDERED: FUROSEMIDE 40 MG/4 ML VIAL ONE (05:07)
[2022-02-11] MEDS ORDERED: METOPROLOL TAR 25 MG TAB PO SCH (06:00)
[2022-02-11] MEDS ORDERED: MORPHINE 2 MG/ML SYR IV PRN (07:00)
[2022-02-11] MEDS ORDERED: METOPROLOL TAR 25 MG TAB ONE (07:27)
[2022-02-11] MEDS ORDERED: ASPIRIN EC 81 MG TAB PO ONE (07:27)
[2022-02-11] MEDS ORDERED: ENOXAPARIN 40 MG/0.4 ML SQ ONE (07:28)
[2022-02-11] MEDS: INSULIN -REGULAR HUMAN 50 UNIT/0.5 ML ML SQ SCH ×2 (07:30→11:30)
[2022-02-11] MEDS ORDERED: TRAMADOL HCL 50 MG TAB ONE (07:46)
[2022-02-11] MEDS ORDERED: ENOXAPARIN 40 MG/0.4 ML SQ SCH (09:00)
[2022-02-11] MEDS ORDERED: ASPIRIN EC 81 MG TAB PO SCH (09:00)
--- NOTE | 2022-02-11 09:22 | EKG ---
Test Date: 2022-02-10 Test Time: 21:27:31 Information Services Manager: MEASUREMENT RESULTS: Intervals: Rate: 83 NH: 174 QRSD: 78 QT: 360 QTc: 423 [place]: P: 56 NH: 174 QRS: 10 T: 70 INTERPRETIVE STATEMENTS: Normal sinus rhythm Septal infarct, age undetermined Abnormal ECG Compared to ECG 09/27/2013 20:37:24 Myocardial infarct finding now present Sinus bradycardia no longer present T-wave abnormality no longer present Electronically Signed On 02-11-22 09:22:10 CDT by Damon Gao
[2022-02-11] MEDS ORDERED: ONDANSETRON 4 MG/2 ML VIAL ONE (09:32)
[2022-02-11] MEDS ORDERED: MORPHINE 2 MG/ML SYR ONE (09:32)
--- NOTE | 2022-02-11 11:48 | CON ---
Date of Consultation: 02/11/2022 Reason For Consultation: Chest pain and hip pain. History Of Present Illness: Ms. Nolen is 66. Had a history of stent in [address] Norris at [facility]. She just saw him recently. Has a history of dyslipidemia, hypertension, diabetes. Came in after a fall on the right hip. X-rays are pending. She had chest pain after she fell, which lasted 1 minut e. It was sharp, left lateral. No nausea, vomiting, diaphoresis, PND, orthopnea, pedal edema, palpi tation, or syncope. Denied any fever or chills. Chest x-ray was negative. Venous Doppler is negati ve. X-rays of the hip are pending. Glucose was 130. She tested positive for RSV virus. She has a GFR of 45, creatinine 1.41. Troponin and BNPs were negative. She is pain free now as far the chest was concern. Her right hip still bothers her. Past Medical History: As stated above. Allergies: SHE IS ALLERGIC TO DEMEROL. Review of Systems: Negative. Social History: Negative. Family History: Noncontributory. Physical Examination: Vital Signs: Stable. She was afebrile. She was in sinus rhythm. HEENT: Negative. Neck: Supple with no bruit. Chest: Clear. Cardiac: Revealed a regular rhythm and rate with S4 gallops. Abdomen: Obese, but benign. Extremities: Revealed trace edema. No clubbing. No cyanosis. Diagnostic Data: As stated earlier. Impression And Plan: Atypical chest pain, noncardiac, probably musculoskeletal, possibly secondary t o the fall. Her EKG is unremarkable. Troponin is negative. Recent visit by Dr. Norris was unremark able according to her. She will follow up with him in the near future. No changes in her medical th erapy. She is on very appropriate therapy from a cardiac standpoint. Her other issues include diabe debby, status post stent, hypertension, dyslipidemia. She is on appropriate regimen with Coreg, aspiri n, Lipitor, Imdur, insulin, losartan, Aldactone. No change in her medical regimen. Her kidney funct ion is concerning and needs to be followed very closely. I will sign off her case. She will follow up with Dr. Norris in the near future. NB/MODL Voice ID: [id number] Report ID: [id number]
--- NOTE | 2022-02-11 12:06 | P.DS ---
Admission Date: 02/11/22 Discharge Date: 02/11/22 Disposition: ROUTINE DISCHARGE Discharge Condition: FAIR Reason for Admission: Chest pain - Problems (1) Chest pain Status: Acute (2) Diabetes mellitus, type II Status: Acute Brief History of Present Illness: 66-year-old female patient with history of CAD, diabetes mellitus type 2, GERD, hypertension presents emergency department for chest pain, right leg pain. Patient reports she is had intermittent chest pain over the course of last 1 to 2 weeks. She eports history of CAD with his last heart cath/stent placement in 2018 at [facility]. Patient also reports that this morning she fell from a chair after 1 leg slipped out from under her. She was evaluated in the emergency department her labs were remarkable for stable CKD 3 initial troponin negative EKG without ST elevation, chest x-ray unremarkable. Patient also had imaging of her right hip which was negative for any fractures as well as a DVT study the right lower extremity which was negative for acute DVT. Patient placed under observation for ACS rule out. Hospital Course: Troponin trended negative. Patient was chest pain-free during this hospital stay. She was seen and evaluated by cardiology-Dr. Gao who recommended no further work-up or intervention but follow-up with her shim plug cutter Dr. Norris as outpatient. She was complaining of right leg pain. X-ray showed no fracture. ACS has been ruled out, patient is deemed stable for discharge. No changes made in her home medications. Vital Signs/Physical Exam: Temp Pulse Resp BP Pulse Ox 97.2 F 77 18 126/85 97 02/11/22 08:00 02/11/22 08:00 02/11/22 09:35 02/11/22 08:00 02/11/22 09:35 General: Alert, In no apparent distress, Oriented x3 HEENT: Mucous membr. moist/pink Neck: Supple, JVD not distended Respiratory: Clear to auscultation bilaterally, Normal air movement Cardiovascular: No edema, Regular rate/rhythm, Normal S1 S2 Gastrointestinal: Normal bowel sounds, Soft and benign, Non-distended, No tenderness Musculoskeletal: No swelling Integumentary: No rashes, No cyanosis Neurological: Other (No focal motor deficit) Laboratory Data at Discharge: WBC 7.3 K/uL (4.3-10.9) D 02/11/22 03:48 Hgb 11.7 g/dL (12.0-15.0) L 02/11/22 03:48 Hct 35.1 % (36.0-45.0) L 02/11/22 03:48 Plt Count 331 K/uL (152-406) 02/11/22 03:48 PT 9.9 SECONDS (9.5-12.5) 02/10/22 21:56 INR 0.90 02/10/22 21:56 Sodium 141 mmol/L (136-145) 02/11/22 03:48 Potassium 4.7 mmol/L (3.5-5.1) 02/11/22 03:48 BUN 20 mg/dL (7-18) H 02/11/22 03:48 Creatinine 1.41 mg/dL (0.55-1.3) H 02/11/22 03:48 Glucose 138 mg/dL (74-106) H 02/11/22 03:48 Magnesium 1.9 mg/dL (1.8-2.4) 02/10/22 21:56 Total Bilirubin 0.4 mg/dL (0.2-1.0) 02/11/22 03:48 AST 24 U/L (15-37) 02/11/22 03:48 ALT 31 U/L (12-78) 02/11/22 03:48 Alkaline Phosphatase 89 U/L (45-117) 02/11/22 03:48 Triglycerides 123 mg/dL (<150) 02/11/22 03:48 Cholesterol 112 mg/dL (<200) 02/11/22 03:48 HDL Cholesterol 29 mg/dL (40-60) L 02/11/22 03:48 Cholesterol/HDL Ratio 3.86 02/11/22 03:48 Home Medications: Acetaminophen [Pain Reliever] 500 mg PO BID 05/20/20 Aspirin [Aspirin EC 81 MG] 81 mg PO DAILY 05/20/20 Atorvastatin Calcium 40 mg PO BEDTIME 05/20/20 Carvedilol [Coreg] 25 mg PO BID 05/20/20 Isosorbide Mononitrate [Isosorbide Mononitrate ER] 60 mg PO DAILY 05/20/20 Losartan Potassium [Cozaar*] 50 mg PO BID 05/20/20 Magnesium Oxide [Mag 0X*] 400 mg PO DAILY 05/20/20 Spironolactone [Aldactone*] 25 mg PO DAILY 05/20/20 Tramadol HCl [Ultram] 50 mg PO PRN PRN 05/20/20 predniSONE [Prednisone*] 20 mg PO DAILY 05/20/20 Dulaglutide [Trulicity] 1 unit SQ 11/19/20 Insulin Glargine,Hum.rec.anlog [Lantus Solostar] 20 units SQ BID 11/19/20 Diet: ADA Activity: Fall precautions Followup: Unknown,U [Primary Care Provider] - 1-2 Weeks Zeny Norris MD [OUTSIDE PHYSICIAN] - 1-2 Weeks
[2022-02-11 12:57] VITALS: BP 130/94; TEMP 97.6
[2022-02-11 13:55] VITALS: O2SAT 98
[2022-02-11] MEDS ORDERED: ATORVASTATIN 40 MG TAB PO SCH (21:00)
--- NOTE | 2022-02-13 14:26 | RAD REPORT ---
EXAM DESCRIPTION: RAD - Hip Right 2 View - 02/10/2022 10:10 pm CLINICAL HISTORY: PAIN Hip Right 2 View. COMPARISON: None. TECHNIQUE: Two views of the right hip: AP and frog leg lateral radiographs. FINDINGS: Slightly suboptimal exam due to overlying soft tissues. No acute osseous abnormality is id entified. Alignment is maintained. No radiopaque foreign object in the soft tissues. IMPRESSION: No acute osseous abnormality identified. Electronically signed by: Edith Fuentes MD 02/10/2022 10:41 PM CDT Due to temporary technical issues with the PACS/Fluency reporting system, reports are being signed by the in house radiologist without review as a courtesy to ensure prompt reporting. The interpreting r adiologist is fully responsible for the content of the report.
== END 2022-02-11 13:11 | disposition home or self-care (01) ==
LOC: ER 21:09 → ERHOLD 02-11 01:35
PROVIDERS: ADMIT Internal Medicine; ATTEND Internal Medicine
DX: R07.89 Other chest pain (principal); M79.604 Pain in right leg; W07.XXXA Fall from chair, initial encounter; I12.9 Hypertensive chronic kidney disease with stage 1 through stage 4 chronic kidney disease, or unspecified chronic kidney disease; E11.22 Type 2 diabetes mellitus with diabetic chronic kidney disease; N18.30 Chronic kidney disease, stage 3 unspecified; I25.10 Atherosclerotic heart disease of native coronary artery without angina pectoris; E78.5 Hyperlipidemia, unspecified; K21.9 Gastro-esophageal reflux disease without esophagitis; F17.210 Nicotine dependence, cigarettes, uncomplicated; Z71.6 Tobacco abuse counseling; Z79.82 Long term (current) use of aspirin; Z79.4 Long term (current) use of insulin; Z79.52 Long term (current) use of systemic steroids; Z79.899 Other long term (current) drug therapy; Z88.5 Allergy status to narcotic agent; Z95.5 Presence of coronary angioplasty implant and graft; Z20.822 Contact with and (suspected) exposure to COVID-19
CPT/HCPCS: 93005; 85025 ×2; 80048; 36415; 83735; 85610; 80061; 82947 ×2; 80076; 84484 ×4; 80053; 83880; 0241U; 71045; 73502; 93971; 96375; 96374; 99285; J1200; J1940; J1650; J2270; J2405 ×2; G0378 ×2

== ENCOUNTER 2022-02-13 22:22 | Emergency (ER) | payer OTHER ==
--- OUTSIDE RECORDS SUMMARY | 2022-02-13 22:26 | XMS REPORT | Continuity of Care Document ---
:1955 Author Organization [facility] t Address [address] [place] [address] Care Team Providers Name Role Phone Trish López Primary Care Physician Michael LINK, Gene Attending Clinician ARISTIDES Attending Clinician Unavailable MARIELLA_LOU Attending Clinician Unavailable Ronald LINK Attending Clinician Jr LINK, K.H. Attending Clinician Mark LINK, R Attending Clinician Armen LINK, Leti Attending Clinician ARISTIDES Admitting Clinician Unavailable JEFFREY Admitting Clinician Unavailable Payers Payer Name Policy Type Policy Number Effective Date Expiration Date S ource Problems Condition Condition Condition Status Onset Resolution Last Treating Co mments Source Name Details Category Date Date Treatment Clinician Date Uncontroll Uncontroll Disease Active N PI:183 ed type 2 ed type 2 03-15 1318 781 diabetes diabetes 00:00: mellitus mellitus 00 with with hyperglyce hyperglyce francis francis Acquired Acquired Disease Active NPI:1 83 hypothyroi hypothyroi 03-15 86371 dism dism 00:00: 00 Rectal Rectal Disease Active NPI:183 bleeding bleeding 10-16 [id number] 1 00:00: 00 Type 2 Type 2 Disease Active NPI:183 diabetes diabetes 10-13 [id number] 1 mellitus mellitus 00:00: without without 00 complicati complicati on, on, without without long-term long-term current current use of use of insulin insulin Hyperglyce Hyperglyce Disease Active N PI:183 francis francis 10-13 [id number] 00:00: 00 Other Other Disease Active 2019-10 NPI:183 general general 11-06 [id number] counseling counseling 00:00: and advice and advice 00 for for contracept contracept hope hope management management Controlled Controlled Disease Active 2019-10 N PI:183 diabetes diabetes 11-06 [id number] 1 mellitus mellitus 00:00: type 2 type 2 00 with with complicati complicati ons, ons, unspecifie unspecifie d whether d whether half-way half-way insulin insulin use use Fatigue Fatigue Disease Active 2019-10 NPI:183 10-31 [id number] 00:00: 00 Low BP Low BP Disease Active 2019-10 NPI:183 10-31 [id number] 00:00: 00 STEPHEN (acute STEPHEN (acute Disease Active 2019-10 N PI:183 kidney kidney 10-31 [id number] injury) injury) 00:00: 00 Nuclear Nuclear Disease Active 2019-10 Overview: NPI: 183 senile senile 18 Formatt[place] [id number] cataract cataract 00:00: g of this of both of both 00 note eyes eyes might be different from the original. 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 Added automatic ally from request for surgery [id number] Symptomati Symptomati Disease Active Overview : NPI:183 c c 6-14 Formattin [id number] cholelithi cholelithi 00:00: g of this asis asis 00 note might be different from the original. Added automatic ally from request for surgery [id number] Chest pain Chest pain Disease Active 2017-10 N PI:183 11-04 [id number] 00:00: 00 Coronary Coronary Disease Active 2017-10 NPI:1 83 artery artery 11-04 [id number] disease disease 00:00: involving involving 00 [place] coronary coronary artery of artery of [place] heart with heart with angina angina pectoris pectoris Abnormal Abnormal Disease Active 2017-10 NPI:1 83 serum serum 11-04 [id number] level of level of 00:00: lipase lipase 00 Calculus Calculus Disease Active 2017-10 NPI:1 83 of of 11-04 [id number] gallbladde gallbladde 00:00: r without r without 00 cholecysti cholecysti tis tis without without obstructio obstructio n n Liver Liver Disease Active 2017-10 NPI:183 lesion lesion 11-04 [id number] 00:00: 00 Abnormal Abnormal Disease Active 2017-10 NPI:1 83 nuclear nuclear 10-10 [id number] stress stress 00:00: test test 00 Essential Essential Disease Active 2017-10 NPI :183 hypertensi hypertensi - 13 23758 on on 00:00: 00 Dyslipidem Dyslipidem Disease Active 2017-10 N PI:183 ia ia 10-08 [id number] 00:00: 00 Atypical Atypical Disease Active 2017-10 NPI:1 83 chest pain chest pain 0-31 13 65336 00:00: 00 Obesity Obesity Disease Active NPI:183 (BMI (BMI 6-20 3127943 30-39.9) 30-39.9) 00:00: 00 Allergies, Adverse Reactions, Alerts Allergy Allergy Status Severity Reaction(s) Onset Inactive Treating Comm ents Source Name Type Date Date Clinician Yan Augustine Active Hives 2014-10 NPI:18 3 ne Hcl ty to 10-08 [id number] adverse 00:00: reaction 00 s Social History Social Habit Start Date Stop Date Quantity Comments Source History of tobacco Smoker NPI:18 [id number] use Alcohol intake 2021-12-24 2021-12-24 Ex-drinker NPI:[id number] 00:00:00 00:00:00 (finding) Education 2020-10-16 2020-10-16 10 00:00:00 00:00:00 Tobacco Comment 2020-10-16 2020-10-16 N/A NPI:[id number] [id number] 00:00:00 00:00:00 Tobacco use and 2020-04-25 2020-04-25 Never used NPI:[id number] 18220 exposure 00:00:00 00:00:00 History [employer] 2020-02-25 2020-02-25 5 NPI:[id number] 81 Financial 00:00:00 00:00:00 History [employer] Food 2020-02-25 2020-02-25 1 NPI:286 [id number] Worry 00:00:00 00:00:00 History [employer] Food 2020-02-25 2020-02-25 1 NPI:512 [id number] Scarcity 00:00:00 00:00:00 History [employer] 2020-02-25 2020-02-25 2 NPI:[id number] 81 Transport Med 00:00:00 00:00:00 History [facility] 2020-02-25 2020-02-25 2 NPI:[id number] 81 Transport Non-Med 00:00:00 00:00:00 [birth year] NPI:[id number] 40422 00:00:00 00:00:00 Smoking Status Start Date Stop Date Source Former smoker 2020-04-25 00:00:00 2020-04-25 00:00:00 NPI:1831 [id number] Medications Ordered Filled Start Stop Current Ordering Indication Dosage Frequency Signature Comments Components Source Medication Medication Date Date Medication? Clinician (SIG) Name Name DULoxetine Yes [id number] 40mg Take 40 mg NPI:183 40 mg CpDR 5-04 by mouth 2 131 8781 00:00: (two) 00 times daily. ATORVASTATI Yes [id number] 80mg TAKE 1 NPI:183 N 80 mg 4-14 TABLET BY [id number] tablet 00:00: MOUTH AT 00 BEDTIME isosorbide Yes [id number] 60mg Take 1 NPI:183 mononitrate 3-07 tablet by 131 8781 60 mg 24 hr 00:00: mouth 2 tablet 00 (two) times daily. levothyroxi Yes [id number] 50ug Take 1 NPI:183 ne 50 mcg 2-[place] [address] 81 tablet 00:00: mouth 00 every morning. semaglutide Yes [id number] 1mg inject 1 NPI:183 (OZEMPIC) 1 2-18 mg under 1318 781 mg/dose (4 00:00: the skin mg/3 mL) 00 weekly. PnIj insulin Yes [id number] INJECT 90 NPI:183 regular hum 2-18 UNITS [id number] U-500 conc 00:00: SUBCUTANEO (HUMULIN R 00 USLY WITH U-500, BREAKFAST, CONC, 100 UNITS KWIKPEN) WITH LUNCH 500 unit/mL AND 100 (3 mL) InPn UNITS WITH DINNER. Insulin Yes [id number] INJECT 20 NPI:183 Glargine 2-18 UNITS [id number] (LANTUS 00:00: SUBCUTANEO SOLOSTAR 00 USLY TWICE U-100 DAILY INSULIN) 100 unit/mL (3 mL) injection amLODIPine Yes [id number] 5mg Take 1 NPI:183 5 mg tablet 2-16 tablet by 131 8781 00:00: mouth 00 daily. clopidogreL Yes NPI:18 3 75 mg 2-13 [id number] tablet 00:00: 00 losartan 50 Yes [id number] 50mg Take 1 NPI:183 mg tablet 1-21 [place] [id number] 81 00:00: mouth 2 00 (two) times daily. CARVEDILOL 2020-10 Yes TAKE 1 NPI:1 83 25 mg 2-16 TABLET BY [id number] tablet 00:00: MOUTH 00 TWICE DAILY ezetimibe 2020-10 Yes [id number] 10mg Take 1 N PI:183 10 mg 0-26 tablet by [id number] tablet 00:00: mouth 00 daily. nitroglycer 2020-[id number] 1 NPI:183 in 0.4 mg 0-26 tablet [id number] sublingual 00:00: under the tablet 00 tongue every 5 (five) minutes as needed for Chest pain. DULoxetine 2020-10 Yes [id number] 30mg Take 1 NPI:183 30 mg 0-22 capsule by [id number] capsule 00:00: mouth 2 00 (two) times daily. benzonatate 2020-10 Yes [id number] 100mg Take 1 NPI:183 100 mg 0-13 capsule by [id number] capsule 00:00: mouth 3 00 (three) times daily as needed for Cough. fluticasone 2020-10 Yes [id number] 1{spray Use 1 NPI:183 propionate 0-13 } [place] [address] 81 50 00:00: each mcg/actuati 00 nostril on nasal daily. spray DULoxetine 2021- No [id number] 40mg Take 40 mg NPI:183 40 mg CpDR 9-20 05-04 by mouth 2 13 98828 00:00: 00:00 (two) 00 :00 times daily. SPIRONOLACT Yes TAKE 1 NPI: 183 ONE 25 mg 9-[place] [address] 81 tablet 00:00: MOUTH ONCE 00 DAILY bromphenira Yes [id number] 5mL Take 5 mL NPI:183 mine-pseudo 8-13 by mouth 4 13 06388 ephedrine-D 00:00: (four) M (BROMFED 00 times DM) 2-30-10 daily as mg/5 mL needed for syrup Congestion /Allergies . benzonatate Yes [id number] 100mg Take 1 NPI:183 100 mg 8-13 capsule by [id number] capsule 00:00: mouth 3 00 (three) times daily as needed for Cough. albuterol Yes [id number] 2{puff} Inhale 2 NPI:183 90 8-13 Puffs [id number] mcg/actuati 00:00: every 4 on inhaler 00 (four) hours as needed for Wheezing or Shortness of Breath. pregabalin 2019-10 Yes [id number] 75mg Take 1 NPI:183 (LYRICA) 75 0-28 capsule by 13 28297 mg capsule 00:00: mouth 2 00 (two) times daily. multivitami Yes [id number] 1{capsu Take 1 NPI:183 n capsule 9-10 le} capsule by 1318 781 00:00: mouth 00 daily. calcium-mag 2020-0 Yes [id number] Take as NPI:183 nesium-zinc 9-10 directed 1318 781 333-133-8.3 00:00: for daily mg Tab 00 dose. esomeprazol 2019-0 Yes NPI:18 3 e 40 mg 4-22 [id number] capsule 00:00: 00 ondansetron 2019-0 Yes [id number] 4mg Take 1 NPI:183 4 mg 2-10 tablet by [id number] disintegrat 00:00: mouth ing tablet 00 every 8 (eight) hours as needed for Nausea and Vomiting (N/V). lancets 30 2017-10 Yes USE TO NPI:1 83 gauge Misc 1-30 TEST BLOOD 131 8781 00:00: GLUCOSE 00 THREE TIMES DAILY ACCU-CHEK 2017-10 Yes USE TO NPI:18 3 SMARTVIEW 1-30 TEST BLOOD 1318 781 TEST STRIP 00:00: GLUCOSE strip 00 THREE TIMES DAILY 90 EASY TOUCH 2017-10 Yes USE TO NPI:1 83 ALCOHOL 1-30 TEST BLOOD [id number] 1 PREP PADS 00:00: GLUCOSE PadM 00 THREE TIMES DAILY 90 Immunizations Ordered Immunization Filled Immunization Date Status Commen ts Source Name Name Influenza Virus 2020-08-23 Completed NPI:[id number] Vaccine Quad .5 mL 00:00:00 IM 6+ MO Pneumococcal 2018-09-04 Completed NPI:[id number] 81 Polysaccharide, 00:00:00 PPSV23 (PNEUMOVAX) Influenza Virus 2018-09-04 Completed NPI:[id number] 34496 Vaccine Quad .5 mL 00:00:00 IM 6+ MO Procedures This patient has no known procedures. Encounters Start End Encounter Admission Attending Care Care Encounter Source Date/Time Date/Time Type Type Clinicians Facility Department ID 2022-02-08 2022-02-08 Telephone Michael [facility] [place] [id number] NPI:183 00:00:00 00:00:00 [facility] [id number] [place] [id number] JORGE?BLEA [id number] [place] [address] [facility] 2021-09-09 2021-09-09 Outpatient GEETA SHRESTHA 404 NPI:186 05:02:00 05:02:00 1203 [id number] 2021-01-18 2021-01-18 Outpatient GUU[facility]ENG[facility]Y [facility] 113 NPI:186 03:31:00 03:31:00 AW [id number] 2021-01-16 2021-01-16 Outpatient [facility] 113 NPI:186 03:17:00 03:17:00 [place] [id number] 2021-01-16 2021-01-16 Outpatient [facility]ENG[facility] NPI:186 03:17:00 03:17:00 AW [id number] 2020-12-15 2020-12-15 Outpatient [facility] 113 NPI:186 04:24:00 04:24:00 AW [id number] 2020-11-25 2020-11-25 [facility] [id number] 00:00:00 00:00:00 Yina Abraham [id number] [place] [id number] Professio [phone] nal 220 [facility] 2020-11-25 2020-11-25 Refill Jr [facility] [place] [id number] 00:00:00 00:00:00 Zeny Abraham [id number] [place] [id number] Professio [id number] critical access hospital 059 [facility] 2020-11-25 2020-11-25 Telephone [facility] [id number] 00:00:00 00:00:00 R Y [id number] [facility] 4.2.7.2.686 BANK [id number] BLDG. 136 2020-11-11 2020-11-11 [facility] [id number] 09:07:13 15:23:52 Visit [facility] [id number] [facility] [id number] [facility] [phone] [id number] Results This patient has no known results.
[2022-02-14 00:17] LABS: Absolute Lymphocytes (CBC) 2.7 K/uL (0.7-4.9); Hematocrit 36.3 % (36.0-45.0); Lymphocytes % 35.6 % (15.3-44.8); MPV 6.9 fL (7.6-11.3); Potassium 4.6 mmol/L (3.5-5.1); RBC Red Blood Cell Count 4.06 M/uL (3.86-4.86); Troponin High Sensitivity 9.4 pg/mL (<58.9)
--- NOTE | 2022-02-14 00:28 | EDPHYS ---
Physician Documentation [facility] Name: Lauren Nolen Age: 66 yrs Sex: Female : 1955 Arrival Date: 02/13/2022 Time: 22:24 Bed 2 Private MD: ED Physician Felix Riojas HPI: 02/14 00:12 This 66 yrs old Black Female presents to ER via EMS with complaints of Chest Pain > 30 rn y/o. 00:12 The patient or guardian reports chest pain that is located primarily in the anterior rn chest wall. Onset: 3 day(s) ago. The pain does not radiate. Associated signs and symptoms: Pertinent positives: cough, Pertinent negatives: abdominal pain, headache, lower extremity swelling, palpitations, shortness of breath, syncope, vomiting. The chest pain is described as sharp, stabbing. Duration: The patient or guardian reports multiple episodes, that are intermittent. Modifying factors: The symptoms are alleviated by nothing. the symptoms are aggravated by nothing. Severity of pain: At its worst the pain was mild in the emergency department the pain has resolved. The patient has experienced a previous episode. The patient has been recently been admitted at [facility]. Pt reports admitted here 2 days ago when presented with chest pain, seen by cardiology and told not cardiac etiology. REports congestion and cough but no sob. No abd pain. No vomiting. States has 2 stents in past but this feels different. . Historical: - Allergies: 02/13 22:30 Demerol (Hives, rash); al4 - PMHx: 22:30 diabetes mellitus; GERD; Hypertension; al4 - Immunization history:: Adult Immunizations up to date. - Social history:: Smoking status: Patient denies any tobacco usage or history of. - Family history:: not pertinent. - Hospitalizations: : No recent hospitalization is reported. ROS: 02/14 00:12 Constitutional: Negative for fever, chills, and weight loss, Eyes: Negative for injury, rn pain, redness, and discharge, Neck: Negative for injury, pain, and swelling, Cardiovascular: Negative for palpitations, and edema Respiratory: Negative for shortness of breath, wheezing Abdomen/GI: Negative for abdominal pain, nausea, vomiting, diarrhea, and constipation, Back: Negative for injury and pain, MS/Extremity: Negative for injury and deformity, Skin: Negative for injury, rash, and discoloration, Neuro: Negative for headache, weakness, numbness, tingling, and seizure. Exam: 00:12 Constitutional: This is a well developed, well nourished patient who is awake, alert, rn and in no acute distress. Head/Face: Normocephalic, atraumatic. Eyes: Periorbital areas with no swelling, redness, or edema. Cardiovascular: Regular rate and rhythm. No pulse deficits. Respiratory: No increased work of breathing, no retractions or nasal flaring. Abdomen/GI: Soft, non-tender Skin: Warm, dry with normal turgor. Normal color with no rashes, no lesions, and no evidence of cellulitis. MS/ Extremity: Pulses equal, no cyanosis. Neurovascular intact. Full, normal range of motion. Equal circumference. Neuro: Awake and alert, GCS 15 00:26 ECG was reviewed by the Attending Physician. rn Vital Signs: 02/13 22:27 BP 140 / 91; Pulse 79; Resp 18; Temp 98.7; Weight 86.18 kg (R); Height 5 ft. 6 in. al4 (167.64 cm) (R); 02/14 00:00 BP 180 / 96; Pulse 69; Resp 16 S; Pulse Ox 97% on R/A; al4 01:07 BP 123 / 71; Pulse 82; Resp 17; Pulse Ox 98% on R/A; lg3 02/13 22:27 Body Mass Index 30.67 (86.18 kg, 167.64 cm) al4 MDM: 02/13 22:24 Patient medically screened. rn 02/14 00:26 Differential diagnosis: acute myocardial infarction, acute pericarditis, anxiety, chest rn wall pain, costochondritis, pleurisy, pneumonia, pneumothorax. Data reviewed: vital signs, nurses notes, lab test result(s), EKG, radiologic studies, plain films, and as a result, I will discharge patient. Counseling: I had a detailed discussion with the patient and/or guardian regarding: the historical points, exam findings, and any diagnostic results supporting the discharge/admit diagnosis, lab results, radiology results, the need for outpatient follow up, to return to the emergency department if symptoms worsen or persist or if there are any questions or concerns that arise at home. Special discussion: Based on the patient's history, exam, and Dx evaluation, there is no indication for emergent intervention or inpatient Tx. It is understood by the patient/guardian that if the Sx's persist or worsen they need to return immediately for re-evaluation. I discussed with the patient/guardian in detail that at this point there is no indication for admission to the hospital. It is understood, however, that if the symptoms persist or worsen the patient needs to return immediately for re-evaluation. ED course: Reviewed admission notes and cardiology consultation, brick paver did not believe was cardiac, did not see need for cardiac stress or cath. Trop neg once again. Normal ECG. pt was RSV + this weekend and states congestion cough, could be inflammatory. CXR clear. No oxygen requirement, will dc home with return precautions.. 02/13 22:25 Order name: Basic Metabolic Panel; Complete Time: 00: rn 02/13 22:25 Order name: CBC with Diff; Complete Time: 00: rn 02/13 22:25 Order name: NT PRO-BNP; Complete Time: : rn 02/13 22:25 Order name: Troponin HS; Complete Time: 00: rn 02/13 22:25 Order name: XRAY Chest (1 view) rn 02/13 22:25 Order name: EKG; Complete Time: : rn 02/13 22:25 Order name: Cardiac monitoring; Complete Time: 23:14 rn 02/13 22:25 Order name: EKG - Nurse/Tech; Complete Time: 23:14 rn 02/13 22:25 Order name: O2 Per Protocol; Complete Time: 23:14 rn 02/13 22:25 Order name: O2 Sat Monitoring; Complete Time: 23:14 rn EC: Rate is 78 beats/min. Rhythm is regular. QRS [place] is Normal. MA interval is normal. QRS rn interval is normal. QT interval is normal. No Q waves. T waves are Normal. No ST changes noted. Clinical impression: Normal ECG. Interpreted by me. Administered Medications: No medications were administered Disposition Summary: 02/14/22 00:28 Discharge Ordered Location: Home rn Problem: new rn Symptoms: have improved rn Condition: Stable rn Diagnosis - Chest pain, unspecified rn Followup: rn - With: Private Physician - When: As needed - Reason: Recheck today's complaints, Re-evaluation by your physician Discharge Instructions: - Discharge Summary Sheet rn - Nonspecific Chest Pain, Adult rn Forms: - Medication Reconciliation Form rn - Thank You Letter rn - Antibiotic rn internship - Prescription Opioid Use rn Signatures: Dispatcher [employer] Felix Bustamante MD MD rn Ledbetter, Alexis al4
--- NOTE | 2022-02-14 00:28 | ER ---
Nurse's Notes [facility] Name: Lauren Nolen Age: 66 yrs Sex: Female : 1955 Arrival Date: 02/13/2022 Time: 22:24 Bed 2 Private MD: Diagnosis: Chest pain, unspecified Presentation: 02/13 22:27 Chief complaint: EMS states: chest pain since 3pm that comes and goes. 324 mg of baby al4 aspirin given in route. Coronavirus screen: Vaccine status: Patient reports receiving the 2nd dose of the covid vaccine. Ebola Screen: No symptoms or risks identified at this time. Initial Sepsis Screen: Does the patient meet any 2 criteria? No. Patient's initial sepsis screen is negative. Does the patient have a suspected source of infection? No. Patient's initial sepsis screen is negative. Risk Assessment: Do you want to hurt yourself or someone else? Patient reports no desire to harm self or others. Onset of symptoms was February 13, 2022. 22:27 Method Of Arrival: EMS: [facility] al4 22:27 Acuity: [place] 3 al4 Triage Assessment: 22:30 General: Appears in no apparent distress. Behavior is calm, cooperative. Pain: al4 Complains of pain in chest Is intermittent. EENT: Reports congestion and cough x 1 week. Neuro: Level of Consciousness is awake, alert, obeys commands, Oriented to person, place, time, situation. Cardiovascular: Patient's skin is warm and dry. Rhythm is regular. Respiratory: Airway is patent Respiratory effort is unlabored, Respiratory pattern is regular, Denies shortness of breath at rest, on exertion. Historical: - Allergies: 22:30 Demerol (Hives, rash); al4 - PMHx: 22:30 diabetes mellitus; GERD; Hypertension; al4 - Immunization history:: Adult Immunizations up to date. - Social history:: Smoking status: Patient denies any tobacco usage or history of. - Family history:: not pertinent. - Hospitalizations: : No recent hospitalization is reported. Screenin/10 01:06 Abuse screen: Denies threats or abuse. Denies injuries from another. Nutritional lg3 screening: No deficits noted. Tuberculosis screening: No symptoms or risk factors identified. Fall Risk None identified. Assessment: 02/13 23:00 Reassessment: Patient appears in no apparent distress at this time. Patient denies pain al4 at this time. 23:15 Reassessment: ED RN working on IV access. al4 02/14 00:00 Reassessment: stated that patient does not need IV access at this time. Lab notified al4 to draw labs. 01:07 Reassessment: Patient appears in no apparent distress at this time. No changes from lg3 previously documented assessment. Patient and/or family updated on plan of care and expected duration. Pain level reassessed. Patient is alert, oriented x 3, equal unlabored respirations, skin warm/dry/pink. Patient denies pain at this time. Patient states feeling better. Patient states symptoms have improved. Vital Signs: 02/13 22:27 BP 140 / 91; Pulse 79; Resp 18; Temp 98.7; Weight 86.18 kg (R); Height 5 ft. 6 in. al4 (167.64 cm) (R); 02/14 00:00 BP 180 / 96; Pulse 69; Resp 16 S; Pulse Ox 97% on R/A; al4 01:07 BP 123 / 71; Pulse 82; Resp 17; Pulse Ox 98% on R/A; lg3 02/13 22:27 Body Mass Index 30.67 (86.18 kg, 167.64 cm) al4 ED Course: 02/13 22:24 Patient arrived in ED. rn 22:24 Felix Riojas MD is Attending Physician. rn 22:30 Triage completed. al4 22:30 Arm band placed on. al4 22:48 Dwain Faulkner is Primary Nurse. al4 22:56 XRAY Chest (1 view) In Process Unspecified. EDMS 23:30 monitoring manager on. Pulse ox on. NIBP on. Warm blanket given. al4 02/14 01:06 Patient has correct armband on for positive identification. Bed in low position. Call lg3 light in reach. Side rails up X 1. 01:06 No provider procedures requiring assistance completed. IV discontinued, intact, lg3 bleeding controlled, No redness/swelling at site. Pressure dressing applied. Administered Medications: No medications were administered Outcome: 00:28 Discharge ordered by . rn 01:06 Discharged to home ambulatory. lg3 01:06 Condition: stable 01:06 Discharge instructions given to patient, Instructed on discharge instructions, follow up and referral plans. Demonstrated understanding of instructions, follow-up care. 01:11 Patient left the ED. lg3 Signatures: Dispatcher [employer] Felix Bustamante MD MD rn Gibson, Lacie, RN RN lg3 Dwain Faulkner al4 Corrections: (The following items were deleted from the chart) 00:02/13 22:30 General: Appears in no apparent distress. Behavior is calm, cooperative, al4al4 02/14 00:02/13 22:30 Cardiovascular: Patient's skin is warm and dry. al4 al4 02/14 00:02/13 22:30 Respiratory: Airway is patent Respiratory effort is unlabored, Respiratory al4 pattern is regular, al4
[2022-02-14 02:00] VITALS: TEMP 98.7
[2022-02-14 02:11] VITALS: BP 123/71; O2SAT 98
--- NOTE | 2022-02-14 10:18 | EKG ---
Test Date: 2022-02-13 Test Time: 22:54:36 Forensic Dna Analyst: RACH MEASUREMENT RESULTS: Intervals: Rate: 78 MN: 174 QRSD: 72 QT: 366 QTc: 417 [place]: P: 64 MN: 174 QRS: 13 T: 82 INTERPRETIVE STATEMENTS: Normal sinus rhythm Normal ECG Compared to ECG 02/10/2022 21:27:31 Myocardial infarct finding no longer present Electronically Signed On 02-14-22 10:17:25 CDT by Damon Gao
--- NOTE | 2022-02-14 11:58 | RAD REPORT ---
EXAM DESCRIPTION: RAD - Chest Single View - 02/13/2022 10:54 pm CLINICAL HISTORY: 66 years, Female, CHEST PAIN COMPARISON: None. FINDINGS: Single view of the chest was obtained portable. No prior films are available for compariso n. The cardiomediastinal silhouette demonstrate to be unremarkable. The heart is not enlarged. The thoracic aorta is unremarkable. Costophrenic angles are sharp. No areas of consolidation or masses are seen. The rest of the soft tissue and bony structures demonstrate to be unremarkable. IMPRESSION: NO ACUTE CARDIOPULMONARY DISEASE SEEN. Electronically signed by: Tristian Garcia MD 02/13/2022 11:19 PM CDT Due to temporary technical issues with the PACS/Fluency reporting system, reports are being signed by the in house radiologists without review as a courtesy to insure prompt reporting. The interpreting radiologist is fully responsible for the content of the report.
== END 2022-02-14 01:11 | disposition home or self-care (01) ==
LOC: ER 22:22
DX: R07.9 Chest pain, unspecified (principal); R05.9 Cough, unspecified; E11.9 Type 2 diabetes mellitus without complications; I10 Essential (primary) hypertension; Z88.5 Allergy status to narcotic agent
CPT/HCPCS: 36415; 71045; 80048; 83880; 84484; 85025; 93005; 99284

== ENCOUNTER 2022-03-16 16:11 | Observation (INO) | payer OTHER ==
--- OUTSIDE RECORDS SUMMARY | 2022-03-16 16:15 | XMS REPORT | Continuity of Care Document ---
:1955 Author Organization [facility] t Address [address] [place] [address] Care Team Providers Name Role Phone Trish López Primary Care Physician DEEDEE Attending Clinician Unavailable RADIOLOGY Attending Clinician Unavailable Radiology Attending Clinician Unavailable Wally TINEO, Kathy Attending Clinician Unavailable XAVIER Attending Clinician Unavailable SHAHID Attending Clinician Unavailable ARISTIDES Attending Clinician Unavailable JEFFREY Attending Clinician Unavailable Shahid LINK Attending Clinician Jr LINK, K.H. Attending Clinician Mark LINK, R Attending Clinician Armen LINK, Leti Attending Clinician XAVIER Admitting Clinician Unavailable ARISTIDES Admitting Clinician Unavailable JEFFREY Admitting Clinician Unavailable Payers Payer Name Policy Type Policy Number Effective Date Expiration Date leoniece MEDICAID OF [place] [id number] 2019 00:00:00 WELLMED/UHC DUAL [id number] 2022 COMP CHOICE PPO 00:00:00 DSNP Problems Condition Condition Condition Status Onset Resolution Last Treating Co mments Source Name Details Category Date Date Treatment Clinician Date Intractabl Intractabl Disease Active U nivers e e 5-23 [place]y of abdominal abdominal 00:[place] pain 00 [place] Branch Uncontroll Uncontroll Disease Active U isabel ed type 2 ed type 2 6-08 ity of diabetes diabetes 00:00: [place] mellitus mellitus 00 Medica l with with Branch hyperglyce hyperglyce francis blanco Acquired Acquired Disease Active Unive rs hypothyroi hypothyroi 6-08 it y of dism dism 00:00: Medical Branch Rectal Rectal Disease Active Univers bleeding bleeding 1-09 ity of 00:00: Medical Branch Type 2 Type 2 Disease Active Univers diabetes diabetes 1-06 ity of mellitus mellitus 00:00: [place] without without 00 Medical complicati complicati Br anch on, on, without without long-term long-term current current use of use of insulin insulin Hyperglyce Hyperglyce Disease Active U isabel francis francis 1-06 ity of 00:00: Medical Branch Other Other Disease Active 2019-10 Univers general general 1-30 ity of counseling counseling 00:00: [place] and advice and advice 00 Me dical for for Branch contracept contracept hope hope management management Controlled Controlled Disease Active 2019-10 U isabel diabetes diabetes 130 ity of mellitus mellitus 00:00: [place] type 2 type 2 00 Medical with with Branch complicati complicati ons, ons, unspecifie unspecifie d whether d whether mcfp mcfp insulin insulin use use Fatigue Fatigue Disease Active 2019-10 Univers 1-24 ity of 00:00: Medical Branch Low BP Low BP Disease Active 2019-10 Univers 1-24 ity of 00:00: [place] 00 Medical Branch STEPHEN (acute STEPHEN (acute Disease Active 2019-10 U isabel kidney kidney 1-24 ity of injury) injury) 00:00: 00 Medical Branch Nuclear Nuclear Disease Active 2019-10 Overview: Univ ers senile senile 1-18 Formattin ity of cataract cataract 00:00: g of this [place] as of both of both 00 note Medical eyes eyes might be Branch different from the original. 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 Added automatic ally from request for surgery [id number] Symptomati Symptomati Disease Active Overview : Univers c c 6-14 Formattin ity of cholelithi cholelithi 00:00: g of this [place] asis asis 00 note Medical might be Branch different from the original. 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 [...] Disease Active 2017-10 Uni vers hypertensi hypertensi - it y of on on 00:00: [place] Medical Branch Dyslipidem Dyslipidem Disease Active 2017-10 U nivers ia ia - ity of 00:00: [place] 00 Medical Branch [...] ents Source Name Type Date Date Clinician Egg Propensi Active Nausea Univers ty to and/or 02-27 ity of adverse Vomiting 00:00: [place] reaction 00 Medical s Branch EGG DRUG Active N/V Univers INGREDI 02-27 ity of 00:00: [place] 00 Medical Branch MEPERIDI DRUG Active Hives 2014-10 Univers NE HCL INGREDI 10-08 ity of 00:00: [place] Medical [facility] Meperidi Propensi Active Hives 2014-10 Univer s ne Hcl ty to 10-08 ity of adverse 00:00: [place] reaction 00 Medical s Branch Social History Social Habit Start Date Stop Date Quantity Comments Source History of Smoker University of tobacco use [facility] Branch Exposure to 2022-03-04 2022-03-14 Not sure [facility] SARS-CoV-2 00:00:00 13:26:00 [facility] (event) Branch Alcohol intake 2022-02-27 2022-02-27 Ex-drinker [place] of 00:00:00 00:00:00 (finding) [facility] Branch Education 2020-10-16 2020-10-16 10 [place] of 00:00:00 00:00:00 [facility] Branch Tobacco Comment 2020-10-16 2020-10-16 N/A Universit y of 00:00:00 00:00:00 [facility] Branch Tobacco use and 2020-04-25 2020-04-25 Never used Universit y of exposure 00:00:00 00:00:00 [place] [facility] History SCOH 2020-02-25 2020-02-25 5 University o f Financial 00:00:00 00:00:00 [place] [facility] History SDSC Food 2020-02-25 2020-02-25 1 Univers ity of Worry 00:00:00 00:00:00 [place] [facility] History SDSC Food 2020-02-25 2020-02-25 1 Univers ity of Scarcity 00:00:00 00:00:00 [place] [facility] History SDOH 2020-02-25 2020-02-25 2 University o f Transport Med 00:00:00 00:00:00 [place] Medic al Branch History SDOH 2020-02-25 2020-02-25 2 University o f Transport Non-Med 00:00:00 00:00:00 [place] Chris rowlandical [place] Sex [birth year] Universit y of 00:00:00 00:00:00 [facility] Smoking Status Start Date Stop Date Source Former smoker 2020-04-25 00:00:00 2020-04-25 00:00:00 Universi ty of [facility] Medications Ordered Filled Start Stop Current Ordering Indication Dosage Frequency Signature Comments Components Source Medication Medication Date Date Medication? Clinician (SIG) Name Name semaglutide Yes [id number] 1mg Inject 1 Univers (OZEMPIC) 1 5-27 mg as ity of mg/dose (4 00:00: directed [place] as mg/3 mL) 00 weekly. Medical PnIj Branch levothyroxi Yes [id number] 50ug Take 1 Univers ne 50 mcg 5-27 tablet by ity o f tablet 00:00: mouth [place] every Medical morning. Branch insulin Yes [id number] INJECT 90 Univers regular hum 5-27 UNITS ity of U-500 conc 00:00: [place]BCUTANEO [place] (HUMULIN R 00 USLY WITH Medi jayne U-500, BREAKFAST, Branch CONC, 100 UNITS KWIKPEN) WITH LUNCH 500 unit/mL AND 100 (3 mL) InPn UNITS WITH DINNER. Blood-Gluco Yes [id number] Use 4 Univers se Meter 5-27 times ity of (CONTOUR 00:00: daily. [place] NEXT 00 E11.65 Medical GLUCOSE Branch METER) Kit semaglutide Yes [id number] 1mg Inject 1 Univers (OZEMPIC) 1 5-27 mg as ity of mg/dose (4 00:00: directed [place] as mg/3 mL) 00 weekly. Medical PnIj Branch levothyroxi Yes [id number] 50ug Take 1 Univers ne 50 mcg 5-27 tablet by ity o f tablet 00:00: mouth [place] every Medical morning. Branch insulin Yes [id number] INJECT 90 Univers regular hum 5-27 UNITS ity of U-500 conc 00:00: [place]BCUTANEO [place] (HUMULIN R 00 USLY WITH Medi jayne U-500, BREAKFAST, Branch CONC, 100 UNITS KWIKPEN) WITH LUNCH 500 unit/mL AND 100 (3 mL) InPn UNITS WITH DINNER. Blood-Gluco Yes [id number] Use 4 Univers se Meter 5-27 times ity of (CONTOUR 00:00: daily. [place]x [place] NEXT 00 E11.65 Medical GLUCOSE Branch METER) Kit aspirin 81 2021- Yes [id number] 81mg Take 1 Univers mg chewable 5-27 06-27 tablet by it y of tablet 00:00: 04:59 mouth [place] 00 :00 daily for Medical 30 days. Branch aspirin 81 2021- Yes [id number] 81mg Take 1 Univers mg chewable 5-27 06-27 tablet by it y of tablet 00:00: 04:59 mouth [place] 00 :00 daily for Medical 30 days. Branch aspirin 81 2021- Yes [id number] 81mg Take 1 Univers mg chewable 5-27 06-27 tablet by it y of tablet 00:00: 04:59 mouth [place] 00 :00 daily for Medical 30 days. Branch losartan 50 2021- Yes [id number] 50mg Take 1 Univers mg tablet 5-26 06-26 tablet by ity of 00:00: 04:59 mouth [place] 00 :00 daily for Medical 30 days. Branch losartan 50 2021- Yes [id number] 50mg Take 1 Univers mg tablet 5-26 06-26 tablet by ity of 00:00: 04:59 mouth [place] 00 :00 daily for Medical 30 days. Branch losartan 50 0 2021- Yes [id number] 50mg Take 1 Univers mg tablet 5-26 06-26 tablet by ity of 00:00: 04:59 mouth [place] 00 :00 daily for Medical 30 days. Branch OZEMPIC 1 Yes [id number] INJECT 1MG Univers mg/dose (4 5-18 UNDER THE ity of mg/3 mL) 00:00: SKIN ONCE [place] PnIj 00 A WEEK. Medical Branch ATORVASTATI Yes [id number] 80mg TAKE 1 Univers N 80 mg 4-14 TABLET BY ity of tablet 00:00: MOUTH AT [place] 00 BEDTIME Medical Branch ATORVASTATI 0 Yes [id number] 80mg TAKE 1 Univers N 80 mg 4-14 TABLET BY ity of tablet 00:00: MOUTH AT [place] BEDTIME [facility] Branch ATORVASTATI 0 Yes [id number] 80mg TAKE 1 Univers N 80 mg 4-14 TABLET BY ity of tablet 00:00: MOUTH AT [place] BEDTIME Medical Branch isosorbide 0 Yes [id number] 60mg Take 1 Univers mononitrate 3-07 tablet by ity of 60 mg 24 hr 00:00: mouth 2 [place] as tablet 00 (two) Medical times [place] daily. isosorbide Yes [id number] 60mg Take 1 Univers mononitrate 3-07 tablet by ity of 60 mg 24 hr 00:00: mouth 2 [place] as tablet 00 (two) Medical times [place] daily. isosorbide Yes [id number] 60mg Take 1 Univers mononitrate 3-07 tablet by ity of 60 mg 24 hr 00:00: mouth 2 [place] as tablet 00 (two) Medical times [place] daily. levothyroxi Yes [id number] 50ug Take 1 Univers ne 50 mcg 2-28 tablet by ity o f tablet 00:00: mouth [place] 00 every Medical morning. Branch insulin Yes [id number] INJECT 90 Univers regular hum 2-18 UNITS ity of U-500 conc 00:00: SUBCUTANEO [place] (HUMULIN R 00 USLY WITH Medi jayne U-500, BREAKFAST, Branch CONC, 100 UNITS KWIKPEN) WITH LUNCH 500 unit/mL AND 100 (3 mL) InPn UNITS WITH DINNER. Insulin Yes [id number] INJECT 20 Univers Glargine 2-18 UNITS ity of (LANTUS 00:00: SUBCUTANEO [place] SOLOSTAR 00 USLY TWICE Medic al U-100 DAILY Branch INSULIN) 100 unit/mL (3 mL) injection Insulin Yes [id number] INJECT 20 Univers Glargine 2-18 UNITS ity of (LANTUS 00:00: SUBCUTANEO [place] SOLOSTAR 00 USLY TWICE Medic al U-100 DAILY Branch INSULIN) 100 unit/mL (3 mL) injection Insulin Yes [id number] INJECT 20 Univers Glargine 2-18 UNITS ity of (LANTUS 00:00: SUBCUTANEO [place] SOLOSTAR 00 USLY TWICE Medic al U-100 DAILY Branch INSULIN) 100 unit/mL (3 mL) injection CARVEDILOL 2020-10 Yes TAKE 1 Unive rs 25 mg 2-16 TABLET BY ity of tablet 00:00: MOUTH [place] 00 TWICE Medical DAILY Branch CARVEDILOL 2020-10 Yes TAKE 1 Unive rs 25 mg 2-16 TABLET BY ity of tablet 00:00: MOUTH [place] 00 TWICE Medical DAILY Branch CARVEDILOL 2020-10 Yes TAKE 1 Unive rs 25 mg 2-16 TABLET BY ity of tablet 00:00: MOUTH [place] 00 TWICE Medical DAILY Branch ezetimibe 2020-10 Yes [id number] 10mg Take 1 U nivers 10 mg 0-26 tablet by ity of tablet 00:00: mouth [place] 00 daily. Medical Branch nitroglycer 2020-[id number] 1 Univers in 0.4 mg 0-26 tablet ity of sublingual 00:00: under the [place] tablet 00 tongue Medical every 5 Branch (five) minutes as needed for Chest pain. ezetimibe 2020-10 Yes [id number] 10mg Take 1 U nivers 10 mg 0-26 tablet by ity of tablet 00:00: mouth [place] 00 daily. Medical Branch nitroglycer 2020-[id number] 1 Univers in 0.4 mg 0-26 tablet ity of sublingual 00:00: under the [place] tablet 00 tongue Medical every 5 Branch (five) minutes as needed for Chest pain. ezetimibe 2020-10 Yes [id number] 10mg Take 1 U nivers 10 mg 0-26 tablet by ity of tablet 00:00: mouth [place] 00 daily. Medical Branch nitroglycer 2020-[id number] 1 Univers in 0.4 mg 0-26 tablet ity of sublingual 00:00: under the [place] tablet 00 tongue Medical every 5 Branch (five) minutes as needed for Chest pain. DULoxetine 2020-10 Yes [id number] 30mg Take 1 Univers 30 mg 0-22 capsule by ity of capsule 00:00: mouth 2 [place] 00 (two) Medical times Branch daily. DULoxetine 2020-10 Yes [id number] 30mg Take 1 Univers 30 mg 0-22 capsule by ity of capsule 00:00: mouth 2 (two) Medical times Branch daily. DULoxetine 2020-10 Yes [id number] 30mg Take 1 Univers 30 mg 0-22 capsule by ity of capsule 00:00: mouth 2 (two) Medical times Branch daily. benzonatate 2020-10 Yes [id number] 100mg Take 1 Univers 100 mg 0-13 capsule by ity of capsule 00:00: mouth 3 (three) Medical times Branch daily as needed for Cough. fluticasone 2020-10 Yes [id number] 1{spray Use 1 Univers propionate 0-13 } [place] in ity o f 50 00:00: each [place] mcg/actuati 00 nostril Medic al on nasal daily. Branch spray benzonatate 2020-10 Yes [id number] 100mg Take 1 Univers 100 mg 0-13 capsule by ity of capsule 00:00: mouth 3 [place] (three) Medical times Branch daily as needed for Cough. fluticasone 2020-10 Yes [id number] 1{spray Use 1 Univers propionate 0-13 } [place] in ity o f 50 00:00: each [place] mcg/actuati 00 nostril Medic al on nasal daily. Branch spray benzonatate 2020-10 Yes [id number] 100mg Take 1 Univers 100 mg 0-13 capsule by ity of capsule 00:00: mouth 3 [place] (three) Medical times Branch daily as needed for Cough. fluticasone 2020-10 Yes [id number] 1{spray Use 1 Univers propionate 0-13 } [place] in ity o f 50 00:00: each [place] mcg/actuati 00 nostril Medic al on nasal daily. Branch spray SPIRONOLACT Yes TAKE 1 Univ ers ONE 25 mg 9-16 TABLET BY ity o f tablet 00:00: MOUTH ONCE [place] 00 DAILY Medical Branch SPIRONOLACT 0 Yes TAKE 1 Univ ers ONE 25 mg 9-16 TABLET BY ity o f tablet 00:00: MOUTH ONCE [place] 00 DAILY Medical Branch SPIRONOLACT Yes TAKE 1 Univ ers ONE 25 mg 9-16 TABLET BY ity o f tablet 00:00: MOUTH ONCE [place] 00 DAILY Medical Branch bromphenira 2020-0 Yes [id number] 5mL Take 5 mL Univers mine-pseudo 8-13 by mouth 4 it y of ephedrine-D 00:00: (four) [place] M (BROMFED 00 times Medical DM) 2-30-10 daily as Bran ch mg/5 mL needed for syrup Congestion /Allergies . benzonatate 2020-0 Yes [id number] 100mg Take 1 Univers 100 mg 8-13 capsule by ity of capsule 00:00: mouth 3 [place] (three) Medical times Branch daily as needed for Cough. albuterol 2020-0 Yes [id number] 2{puff} Inhale 2 Univers 90 8-13 Puffs ity of mcg/actuati 00:00: every 4 [place] as on inhaler 00 (four) Medical hours as Branch needed for Wheezing or Shortness of Breath. bromphenira 2020-0 Yes [id number] 5mL Take 5 mL Univers mine-pseudo 8-13 by mouth 4 it y of ephedrine-D 00:00: (four) [place] M (BROMFED 00 times Medical DM) 2-30-10 daily as Bran ch mg/5 mL needed for syrup Congestion /Allergies . benzonatate 2020-0 Yes [id number] 100mg Take 1 Univers 100 mg 8-13 capsule by ity of capsule 00:00: mouth 3 [place] (three) Medical times Branch daily as needed for Cough. albuterol 2020-0 Yes [id number] 2{puff} Inhale 2 Univers 90 8-13 Puffs ity of mcg/actuati 00:00: every 4 [place] as on inhaler 00 (four) Medical hours as Branch needed for Wheezing or Shortness of Breath. bromphenira 2020-0 Yes [id number] 5mL Take 5 mL Univers mine-pseudo 8-13 by mouth 4 it y of ephedrine-D 00:00: (four) [place] M (BROMFED 00 times Medical DM) 2-30-10 daily as Bran ch mg/5 mL needed for syrup Congestion /Allergies . benzonatate 2020-0 Yes [id number] 100mg Take 1 Univers 100 mg 8-13 capsule by ity of capsule 00:00: mouth 3 [place] 00 (three) Medical times Branch daily as needed for Cough. albuterol 2021-0 Yes [id number] 2{puff} Inhale 2 Univers 90 8-13 Puffs ity of mcg/actuati 00:00: every 4 [place] as on inhaler 00 (four) Medical hours as Branch needed for Wheezing or Shortness of Breath. pregabalin 2019-10 Yes [id number] 75mg Take 1 Univers (LYRICA) 75 0-28 capsule by it y of mg capsule 00:00: mouth 2 [place] 00 (two) Medical times Branch daily. pregabalin 2019-10 Yes [id number] 75mg Take 1 Univers (LYRICA) 75 0-28 capsule by it y of mg capsule 00:00: mouth 2 [place] 00 (two) Medical times Branch daily. pregabalin 2019-10 Yes [id number] 75mg Take 1 Univers (LYRICA) 75 0-28 capsule by it y of mg capsule 00:00: mouth 2 [place] 00 (two) Medical times Branch daily. multivitami Yes [id number] 1{capsu Take 1 Univers n capsule 9-10 le} capsule by ity of 00:00: mouth [place] 00 daily. Medical Branch calcium-mag Yes [id number] Take as Univers nesium-zinc 9-10 directed ity of 333-133-8.3 00:00: for daily [place] mg Tab 00 dose. Medical Branch multivitami Yes [id number] 1{capsu Take 1 Univers n capsule 9-10 le} capsule by ity of 00:00: mouth [place] 00 daily. Medical Branch calcium-mag 2019- Yes [id number] Take as Univers nesium-zinc 9-10 directed ity of 333-133-8.3 00:00: for daily [place] mg Tab 00 dose. Medical Branch multivitami 2019- Yes [id number] 1{capsu Take 1 Univers n capsule 9-10 le} capsule by ity of 00:00: mouth [place] 00 daily. Medical Branch calcium-mag Yes [id number] Take as Univers nesium-zinc 9-10 directed ity of 333-133-8.3 00:00: for daily [place] mg Tab 00 dose. Medical Branch esomeprazol Yes Univer s e 40 mg 4-22 ity of capsule 00:00: [place] 00 Medical Branch esomeprazol 2020-0 Yes Univer s e 40 mg 4-22 ity of capsule 00:00: Medical Branch esomeprazol 2020-0 Yes Univer s e 40 mg 4-22 ity of capsule 00:00: Medical Branch ondansetron 2020-0 Yes [id number] 4mg Take 1 Univers 4 mg 2-10 tablet by ity of disintegrat 00:00: mouth [place] ing tablet 00 every 8 Medica l (eight) Branch hours as needed for Nausea and Vomiting (N/V). ondansetron 2020-0 Yes [id number] 4mg Take 1 Univers 4 mg 2-10 tablet by ity of disintegrat 00:00: mouth [place] ing tablet 00 every 8 Medica l (eight) Branch hours as needed for Nausea and Vomiting (N/V). ondansetron 2020-0 Yes [id number] 4mg Take 1 Univers 4 mg 2-10 tablet by ity of disintegrat 00:00: mouth [place] ing tablet 00 every 8 Medica l (eight) Branch hours as needed for Nausea and Vomiting (N/V). lancets 30 2017-10 Yes USE TO Unive rs gauge Misc 1-30 TEST BLOOD ity of 00:00: GLUCOSE [place] THREE Medical TIMES Branch DAILY ACCU-CHEK 2017-10 Yes USE TO Univer s SMARTVIEW 1-30 TEST BLOOD ity of TEST STRIP 00:00: GLUCOSE [place] strip 00 THREE Medical TIMES Branch DAILY 90 EASY TOUCH 2017-10 Yes USE TO Unive rs ALCOHOL 1-30 TEST BLOOD ity of PREP PADS 00:00: GLUCOSE [place] Pad THREE Medical TIMES Branch DAILY 90 lancets 30 2017-10 Yes USE TO Unive rs gauge Misc 1-30 TEST BLOOD ity of 00:00: GLUCOSE [place] THREE Medical TIMES Branch DAILY ACCU-CHEK 2017-10 Yes USE TO Univer s SMARTVIEW 1-30 TEST BLOOD ity of TEST STRIP 00:00: GLUCOSE [place] strip 00 THREE Medical TIMES Branch DAILY 90 EASY TOUCH 2017-10 Yes USE TO Unive rs ALCOHOL 1-30 TEST BLOOD ity of PREP PADS 00:00: GLUCOSE [place] PadM 00 THREE Medical TIMES Branch DAILY 90 lancets 30 2017-10 Yes USE TO Unive rs gauge Misc 1-30 TEST BLOOD ity of 00:00: GLUCOSE [place] 00 THREE Medical TIMES Branch DAILY ACCU-CHEK 2017-10 Yes USE TO Univer s SMARTVIEW 1-30 TEST BLOOD ity of TEST STRIP 00:00: GLUCOSE [place] strip THREE Medical TIMES Branch DAILY 90 EASY TOUCH 2017-10 Yes USE TO Unive rs ALCOHOL 1-30 TEST BLOOD ity of PREP PADS 00:00: GLUCOSE [place] PadM 00 THREE Medical TIMES Branch DAILY 90 Immunizations Ordered Filled Immunization Date Status Comments [facility] e Immunization Name Name SARS-COV-2 COVID-19 2021-01-28 Completed Unive rsity of MODERNA 0.25ML 00:00:00 [place] Medi jayne BOOSTER VACCINE Branch SARS-COV-2 COVID-19 2021-01-28 Completed Unive rsity of MODERNA 0.25ML 00:00:00 [place] Medi jayne BOOSTER VACCINE Branch SARS-COV-2 COVID-19 2021-01-28 Completed Unive rsity of MODERNA 0.25ML 00:00:00 [place] Medi jayne BOOSTER VACCINE Branch SARS-COV-2 COVID-19 2020-12-28 Completed Unive rsity of MODERNA 0.25ML 00:00:00 [place] Medi jayne BOOSTER VACCINE Branch SARS-COV-2 COVID-19 2020-12-28 Completed Unive rsity of MODERNA 0.25ML 00:00:00 [place] Medi jayne BOOSTER VACCINE Branch SARS-COV-2 COVID-19 2020-12-28 Completed Unive rsity of MODERNA 0.25ML 00:00:00 [place] Medi jayne BOOSTER VACCINE Branch Influenza Virus 2020-08-23 Completed Universit y of Vaccine [place] .5 mL 00:00:00 [place] Medical IM 6+ MO Branch Influenza Virus 2020-08-23 Completed Universit y of Vaccine [place] .5 mL 00:00:00 [place] Medical IM 6+ MO Branch Influenza Virus 2020-08-23 Completed Universit y of Vaccine [place] .5 mL 00:00:00 [place] Medical IM 6+ MO Branch Pneumococcal 2018-09-04 Completed University o f Polysaccharide, 00:00:00 [place] Med ical PPSV23 (PNEUMOVAX) Branch Influenza Virus 2018-09-04 Completed Universit y of Vaccine [place] .5 mL 00:00:00 [place] Medical IM 6+ MO Branch Pneumococcal 2018-09-04 Completed University o f Polysaccharide, 00:00:00 [place] Med ical PPSV23 (PNEUMOVAX) Branch Influenza Virus 2018-09-04 Completed Universit y of Vaccine [place] .5 mL 00:00:00 [place] Medical IM 6+ MO Branch Pneumococcal 2018-09-04 Completed University o f Polysaccharide, 00:00:00 [facility] ical PPSV23 (PNEUMOVAX) Branch Influenza Virus 2018-09-04 Completed Universit y of Vaccine [place] .5 mL 00:00:00 [facility] IM 6+ MO Branch Procedures Procedure Date / Time Performing Clinician Source Performed BI ULTRASOUND BREAST 2022-03-14 19:32:[address] [facility] LIMITED RIGHT Medical Branch BI DIAGNOSTIC 2022-03-14 19:20:28 Jannie López [facility] TOMOSYNTHESIS BILATERAL Medical Branch CONSENT/REFUSAL FOR 2022-03-14 18:27:28 Doctor Unassigned, No [facility] DIAGNOSIS AND TREATMENT Name Medical [place] ASSIGNMENT OF BENEFITS 2022-03-14 18:27:05 Doctor Unassigned, No [facility] Name Medical Branch Encounters Start End Encounter Admission Attending Care Care Encounter Source Date/Time Date/Time Type Type Clinicians Facility Department ID 2022-07-07 2022-07-07 Outpatient R DEEDEE [facility] [id number] Univers 13:00:00 13:00:00 LAITH [id number] ity [facility] 2022-07-07 2022-07-07 Outpatient R DEEDEE [facility] [id number] Univers 13:00:00 13:00:[facility]22-[facility] 2022-03-14 Outpatient R RADIOLOGY [facility] [id number] Univers 13:26:48 23:59:00 ity of [facility] 2022-03-14 2022-03-14 Hospital Radiology [facility] [id number] Univers 13:26:48 23:59:00 Encounter [place] [id number] ity [facility] [id number] [facility] [id number] [facility] 800 Branch 2022-03-14 2022-03-14 [facility] Radiology [facility] [id number] Univers 13:26:33 23:59:00 Encounter [place] [id number] ity of [place] [id number] [place] [id number] [facility] 806 Branch 2022-03-14 2022-03-14 Outpatient R RADIOLOGY [facility] [id number] Univers 14:00:00 14:00:00 [id number] [facility] 2022-03-03 2022-03-03 Outpatient R DEEDEE, [facility] [id number] Univers 14:00:00 14:39:28 LAITH [facility] 2022-03-03 2022-03-03 Transition LORRI Lo [id number] Univers 00:00:00 00:00:00 of Care Tuyet MORA [id number] it y of [place] [id number] [facility] [id number] [facility] 403 Branch 2022-02-27 2022-03-02 Outpatient X XAVIER, [facility] [id number] Univers 12:49:00 12:02:00 SHELDON [facility] 2022-02-28 2022-02-28 Outpatient R SHAHID, [facility] [id number] Univers 08:30:00 08:30:00 LAUREN [facility] 2021-09-09 2021-09-09 Outpatient FERGUSON_JO MSHOP [facility] 749 [place] 05:02:00 05:02:00 HN [id number] [facility] 2021-01-18 2021-01-18 Outpatient GUU_SHENG_Y [facility] [address] [place] 03:31:00 03:31:00 AW [id number] [facility] 2021-01-16 2021-01-16 Outpatient GUU_SHENG_Y [facility] [address] [place] 03:17:00 03:17:00 AW [id number] [facility] 2021-01-16 2021-01-16 Outpatient GUU_SHENG_Y [facility] [address] [place] 03:17:00 03:17:00 AW [id number] [facility] 2020-12-15 2020-12-15 Outpatient GUU_SHENG_Y [facility] 113 [id number] [place] 04:24:00 04:24:00 AW [id number] da [facility] 2020-11-25 2020-11-25 [facility] [id number] 00:00:00 00:00:00 Lauren Abraham [id number] [place] [id number] Professio [phone] nal 220 [facility] 2020-11-25 2020-11-25 [facility] [id number] 00:00:00 00:00:00 Zeny Abraham [id number] [place] [id number] Professio [phone] [facility] 059 [facility] 2020-11-25 2020-11-25 Telephone Vinod Flores [facility] [id number] 00:00:00 00:00:00 R Y [id number] [facility] [id number] [facility] [phone] BLDG. 136 2020-11-11 2020-11-11 [facility] [id number] 09:07:13 15:23:52 Visit [facility] [id number] [facility] [id number] [facility] [phone] [id number] Results This patient has no known results.
--- NOTE | 2022-03-16 17:23 | RAD REPORT ---
EXAM DESCRIPTION: Tamir Single View03/16/2022 5:13 pm CLINICAL HISTORY: Chest pain COMPARISON: February 2022 FINDINGS: The lungs appear clear of acute infiltrate. The heart is normal size IMPRESSION: No acute abnormalities displayed
[2022-03-16 17:42] LABS: Absolute Lymphocytes (CBC) 2.6 K/uL (0.7-4.9); Hematocrit 31.9 % (36.0-45.0); Lymphocytes % 36.2 % (15.3-44.8); MPV 7.3 fL (7.6-11.3); RBC Red Blood Cell Count 3.58 M/uL (3.86-4.86)
[2022-03-16 17:59] LABS: Potassium 4.1 mmol/L (3.5-5.1)
--- NOTE | 2022-03-16 18:26 | EDPHYS ---
Physician Documentation [facility] Name: Lauren Nolen Age: 66 yrs Sex: Female : 1955 Arrival Date: 03/16/2022 Time: 16:20 Bed 19 Private MD: ED Physician Kristian Cartagena HPI: 03/16 16:22 This 66 yrs old Black Female presents to ER via Unassigned with complaints of chest jr11 pain. 16:22 The patient or guardian reports chest pain that is located primarily in the substernal jr11 area. Onset: 130PM. The pain radiates to R neck. Associated signs and symptoms: Pertinent positives: nausea, Pertinent negatives: vomiting. The chest pain is described as aching, dull, a heaviness. Duration: The patient or guardian reports a single episode, that is now resolved, after nitro and full dose ASA. Modifying factors: The symptoms are alleviated by ASA, NTG, the symptoms are aggravated by movement, walking. Severity of pain: At its worst the pain was moderate in the emergency department the pain has resolved. The patient has experienced a previous episode, h/o [place], stents last 2017, cards in [place]. Historical: - Allergies: 16:34 Demerol (Hives, rash); fritz - PMHx: 16:34 diabetes mellitus; GERD; Hypertension; fritz - Immunization history:: Adult Immunizations up to date. - Social history:: Smoking status: Patient denies any tobacco usage or history of. ROS: 16:22 All other systems are negative. jr11 Exam: 16:22 Constitutional: This is a well developed, well nourished patient who is awake, alert, jr11 and in no acute distress. Head/Face: Normocephalic, atraumatic. Eyes: Extra-ocular motions intact. Lids and lashes normal. Conjunctiva and sclera are non-icteric and not injected. Cornea within normal limits. Periorbital areas with no swelling, redness, or edema. ENT: Nares patent. No nasal discharge, no septal abnormalities noted. Oropharynx with no redness, swelling, or masses, exudates, or evidence of obstruction, uvula midline. Mucous membranes moist. Neck: Trachea midline, no thyromegaly or masses palpated, and no cervical lymphadenopathy. Supple, full range of motion without nuchal rigidity, or vertebral point tenderness. No Meningismus. Chest/axilla: Normal chest wall appearance and motion. Nontender with no deformity. No lesions are appreciated. Cardiovascular: Regular rate and rhythm with a normal S1 and S2. No gallops, murmurs, or rubs. Normal PMI, no JVD. No pulse deficits. Respiratory: Lungs have equal breath sounds bilaterally, clear to auscultation and percussion. No rales, rhonchi or wheezes noted. No increased work of breathing, no retractions or nasal flaring. Abdomen/GI: Soft, non-tender, with normal bowel sounds. No distension or tympany. No guarding or rebound. No evidence of tenderness throughout. Skin: Warm, dry with normal turgor. Normal color with no rashes, no lesions, and no evidence of cellulitis. MS/ Extremity: Pulses equal, no cyanosis. Neurovascular intact. Full, normal range of motion. Neuro: Awake and alert, GCS 15, oriented to person, place, time, and situation. No gross motor or sensory deficits. Vital Signs: 16:30 BP 130 / 94; Pulse 92; Resp 20; Temp 98.7; Pulse Ox 97% ; Weight 89.36 kg; Height 5 ft. fritz 9 in. (175.26 cm); 17:52 BP 126 / 90; Pulse 81; Resp 17; Pulse Ox 99% on R/A; fritz 19:31 BP 147 / 105; Pulse 84; Resp 19; Pulse Ox 99% on R/A; sm5 16:30 Body Mass Index 29.09 (89.36 kg, 175.26 cm) MDM: 16:21 Patient medically screened. jr11 16:22 Differential diagnosis: coronary artery disease stable angina. HEART Score: History: jr11 Moderately Suspicious (1), ECG:. Data reviewed: vital signs, nurses notes, EMS record. 17:02 ED course: Interpreted by me shows normal sinus rhythm, left axis deviation, normal jr11 intervals, no acute ST changes.. 18:04 HEART Score: History: ECG: Non specific repolarization disturbance / LBTB / PM (1), jr11 Age: > or = 65 years (2), Risk Factors: > or = 3 Risk factors for atherosclerotic disease (2), Troponin: < or = 1 x Normal Limit (0), Total Score = 4. 03/16 16:21 Order name: Basic Metabolic Panel; Complete Time: 18:04 [facility] 03/16 16:21 Order name: CBC with Diff; Complete Time: 17:50 [facility] 03/16 16:21 Order name: D-Dimer; Complete Time: 17:50 [facility] 03/16 16:21 Order name: NT PRO-BNP; Complete Time: 18:04 [facility] 03/16 16:21 Order name: Troponin HS; Complete Time: 18:04 [facility] 03/16 18:44 Order name: COVID-19 SARS RT PCR (Document "Date of Onset" if Symptomatic) ss 03/16 16:21 Order name: XRAY Chest (1 view); Complete Time: 17:26 [facility] 03/16 16:21 Order name: EKG; Complete Time: 16:22 [facility] 03/16 20:23 Order name: Glucose, Ancillary Testing EDAZ 03/16 23:54 Order name: Troponin High Sensitivity EDMS 03/17 04:33 Order name: CBC with Automated Diff EDMS 03/17 04:46 Order name: Comprehensive Metabolic Panel EDMS 03/17 04:58 Order name: Troponin High Sensitivity EDMS 03/17 08:13 Order name: Glucose, Ancillary Testing EDMS 03/16 16:21 Order name: Cardiac monitoring; Complete Time: 17:06 [facility] 03/16 16:21 Order name: EKG - Nurse/Tech; Complete Time: 17:06 [facility] 03/16 16:21 Order name: IV Saline Lock; Complete Time: 17:06 [facility] 03/16 16:21 Order name: Labs collected and sent; Complete Time: 17:06 [facility] 03/16 16:21 Order name: O2 Per Protocol; Complete Time: 17:06 [facility] 03/16 16:21 Order name: O2 Sat Monitoring; Complete Time: 17:06 [facility] Administered Medications: No medications were administered Disposition Summary: 03/16/22 18:25 Hospitalization Ordered Hospitalization Status: Observation jr11 Provider: Geoff Riojas Condition: Stable jr11 Problem: an acute exacerbation jr11 Symptoms: have improved jr11 Bed/Room Type: Standard 11 Location: [facility] ER HOLD(03/16/22 19:43) cg Room Assignment: ERHOLD-(03/16/22 19:43) cg Diagnosis - Chest pain, unspecified jr11 Forms: - Medication Reconciliation Form jr11 - SBAR form jr11 Signatures: Dispatcher [employer] Amaris Benavides RN RN cg Au-Stager, Heather, RN RN ha Rosillo, Jose, MD MD jr11 Corrections: (The following items were deleted from the chart) 18:25 Telemetry/MedSurg (observation) [address] 18:[address]
--- NOTE | 2022-03-16 18:26 | ER ---
Nurse's Notes [facility] Name: Lauren Nolen Age: 66 yrs Sex: Female : 1955 Arrival Date: 03/16/2022 Time: 16:20 Bed 19 Private MD: Diagnosis: Chest pain, unspecified Presentation: 03/16 16:30 Chief complaint: Patient states: chest pain. Coronavirus screen: Vaccine status: fritz Patient reports receiving the 2nd dose of the covid vaccine. Ebola Screen: Patient denies travel to an Ebola-affected area in the 21 days before illness onset. Initial Sepsis Screen: Does the patient meet any 2 criteria? HR > 90 bpm. Does the patient have a suspected source of infection? No. Patient's initial sepsis screen is negative. Risk Assessment: Do you want to hurt yourself or someone else? Patient reports no desire to harm self or others. Onset of symptoms was March 16, 2022. 16:30 Method Of Arrival: EMS: [facility] 16:30 Acuity: [place] 3 Triage Assessment: 16:35 General: Appears in no apparent distress. Behavior is calm, cooperative. fritz Historical: - Allergies: 16:34 Demerol (Hives, rash); fritz - PMHx: 16:34 diabetes mellitus; GERD; Hypertension; fritz - Immunization history:: Adult Immunizations up to date. - Social history:: Smoking status: Patient denies any tobacco usage or history of. Screenin:34 Abuse screen: Denies threats or abuse. Denies injuries from another. Nutritional fritz screening: No deficits noted. Tuberculosis screening: No symptoms or risk factors identified. Fall Risk None identified. Assessment: 16:32 Pain: Complains of pain in chest. Cardiovascular: Pulses are all present. Chest pain. fritz Vital Signs: 16:30 BP 130 / 94; Pulse 92; Resp 20; Temp 98.7; Pulse Ox 97% ; Weight 89.36 kg; Height 5 ft. fritz 9 in. (175.26 cm); 17:52 BP 126 / 90; Pulse 81; Resp 17; Pulse Ox 99% on R/A; fritz 19:31 BP 147 / 105; Pulse 84; Resp 19; Pulse Ox 99% on R/A; sm5 16:30 Body Mass Index 29.09 (89.36 kg, 175.26 cm) ED Course: 16:20 Patient arrived in ED. jr11 16:21 Kristian Cartagena MD is Attending Physician. jr11 16:30 Gali Grider, RN is Primary Nurse. fritz 16:32 Triage completed. fritz 16:34 Patient has correct armband on for positive identification. Bed in low position. fritz 16:34 No provider procedures requiring assistance completed. Maintain EMS IV. Dressing fritz intact. Gauge \T\ site: 18 g rac. 16:35 Arm band placed on. fritz 17:14 XRAY Chest (1 view) In Process Unspecified. EDMS 18:24 Felix Riojas MD is Hospitalizing Provider. jr11 18:24 Hospitalizing Provider role handed off by Felix Riojas MD jr11 18:24 Geoff Riojas MD is Hospitalizing Provider. jr11 Administered Medications: No medications were administered Medication: 16:34 VIS not applicable for this client. fritz Outcome: 18:25 Decision to Hospitalize by Provider. jr11 03/17 10:07 Patient left the ED. eb Signatures: Dispatcher [employer] EDCT Yadira Hyde Sarah, RN RN sm5 Gali Grider, NOMAN RN Kristian Andrade MD MD jr11
--- NOTE | 2022-03-16 19:30 | P.HP ---
Certification for Inpatient Patient admitted to: Observation With expected LOS: <2 Midnights Patient will require the following post-hospital care: None Practitioner: I am a practitioner with admitting privileges, knowledge of patient current condition, hospital course, and medical plan of care. Services: Services provided to patient in accordance with Admission requirements found in Title 42 Section 412.3 of the Code of Federal Regulations Patient History Date of Service: 03/16/22 Reason for admission: Chest pain History of Present Illness: 66-year-old female history of CAD, insulin-dependent diabetes, hypertension presents emergency department for chest pain. Patient reports ongoing chest pain intermittently over the course of last 3 to 4 months had a significant episode today after walking out of vehicle on the way to doctor's office. Her last heart catheterization was in 2018 with 2 stents placed. Her initial troponin was negative her EKG was without acute changes chest x-ray was unremarkable labs were significant for stable CKD 3 and mild hyperglycemia. ED provider wishes to admit for ACS rule out. Allergies meperidine [From Demerol] Allergy (Verified 11/19/20 14:25) Hives Home Medications: Acetaminophen [Pain Reliever] 500 mg PO BID 05/20/20 Aspirin [Aspirin EC 81 MG] 81 mg PO DAILY 05/20/20 Atorvastatin Calcium 40 mg PO BEDTIME 05/20/20 Carvedilol [Coreg] 25 mg PO BID 05/20/20 Isosorbide Mononitrate [Isosorbide Mononitrate ER] 60 mg PO DAILY 05/20/20 Losartan Potassium [Cozaar*] 50 mg PO BID 05/20/20 Magnesium Oxide [Mag 0X*] 400 mg PO DAILY 05/20/20 Spironolactone [Aldactone*] 25 mg PO DAILY 05/20/20 Tramadol HCl [Ultram] 50 mg PO PRN PRN 05/20/20 predniSONE [Prednisone*] 20 mg PO DAILY 05/20/20 Dulaglutide [Trulicity] 1 unit SQ 11/19/20 Insulin Glargine,Hum.rec.anlog [Lantus Solostar] 20 units SQ BID 11/19/20 - Past Medical/Surgical History -: GERD -: Hypertension -: CAD -: Diabetes mellitus type 2 -: Stents Psychosocial/ Personal History: Patient lives at home, alone - Family History Brother -: Stroke - Social History Smoking Status: Never smoker Alcohol use: No CD- Drugs: No Caffeine use: Yes Place of Residence: Home Review of Systems 10-point ROS is otherwise unremarkable Cardiovascular: Chest Pain Physical Examination - Physical Exam General: Alert, In no apparent distress, Oriented x3 HEENT: Atraumatic, PERRLA, Mucous membr. moist/pink, EOMI, Sclerae nonicteric Neck: Supple, 2+ carotid pulse no bruit, No LAD, Without JVD or thyroid abnormality Respiratory: Clear to auscultation bilaterally, Normal air movement Cardiovascular: Regular rate/rhythm, Normal S1 S2 Capillary refill: <2 Seconds Gastrointestinal: Normal bowel sounds, No tenderness Musculoskeletal: No tenderness Integumentary: No rashes Neurological: Normal gait, Normal speech, Normal strength at 5/5 x4 extr, Normal tone, Normal affect Lymphatics: No axilla or inguinal lymphadenopathy - Studies Laboratory Data (last 24 hrs) 03/16/22 17:28: WBC 7.3, Hgb 10.9 L, Hct 31.9 L, Plt Count 317 03/16/22 17:28: Sodium 143, Potassium 4.1, BUN 30 H, Creatinine 1.53 H, Glucose 169 H Assessment and Plan - Plan Assessment: Chest pain rule out ACS history of CAD Diabetes mellitus type 2insulin-dependent Hypertension Hyperlipidemia Plan: Chest pain rule out ACS history of CAD: Monitor on telemetry, trend troponins, cardiology consult in place. Continue home medications. Diabetes mellitus type 2insulin-dependent: ACH S Accu-Chek, sliding scale insulin, continue home long-acting insulins. Patient takes Lantus 20 units twice daily at home as well as Ozempic once a week and sliding scale. Hypertension: Continue home medications adjust as necessary Hyperlipidemia: Continue atorvastatin. DVT PPX:Lovenox Code status: Full Discharge Plan: Home Plan to discharge in: 24 Hours - Advance Directives Does patient have a Living Will: No Does patient have a Durable POA for Healthcare: No - Code Status/Comfort Care Code Status Assessed: Yes (Full code) Critical Care: No Time Spent Managing Pts Care (In Minutes): 55
[2022-03-16] MEDS ORDERED: ONDANSETRON 4 MG/2 ML VIAL IV PRN (20:06)
[2022-03-16] MEDS ORDERED: MORPHINE 2 MG/ML SYR IV PRN (20:06)
[2022-03-16] MEDS ORDERED: ATORVASTATIN 20 MG TAB ONE (20:25)
[2022-03-16] MEDS ORDERED: INSULIN -REGULAR HUMAN 50 UNIT/0.5 ML ML SQ SCH (21:00)
[2022-03-16] MEDS ORDERED: ATORVASTATIN 80 MG TAB PO SCH (21:00)
[2022-03-17 01:10] VITALS: BMI 29.0
[2022-03-17 04:32] LABS: Absolute Lymphocytes (CBC) 2.8 K/uL (0.7-4.9); Hematocrit 32.4 % (36.0-45.0); MPV 6.9 fL (7.6-11.3); RBC Red Blood Cell Count 3.61 M/uL (3.86-4.86)
[2022-03-17 04:46] LABS: Albumin 3.2 g/dL (3.4-5.0); Bilirubin Total 0.4 mg/dL (0.2-1.0); Potassium 4.1 mmol/L (3.5-5.1); Protein, Total 6.2 g/dL (6.4-8.2)
[2022-03-17] MEDS ORDERED: carvediloL 6.25 MG TAB ONE (05:04)
[2022-03-17] MEDS ORDERED: MORPHINE 2 MG/ML SYR ONE (05:05)
[2022-03-17] MEDS ORDERED: carvediloL 25 MG TAB PO SCH (06:00)
--- NOTE | 2022-03-17 06:17 | EKG ---
Test Date: 2022-03-16 Test Time: 16:51:57 Wine Fermenter: VERONICA MEASUREMENT RESULTS: Intervals: Rate: 82 NJ: 168 QRSD: 76 QT: 366 QTc: 427 [place]: P: 66 NJ: 168 QRS: 0 T: 54 INTERPRETIVE STATEMENTS: Normal sinus rhythm Normal ECG Compared to ECG 02/13/2022 22:54:36 No significant changes Electronically Signed On 03-17-22 06:16:08 CDT by Damon Gao
[2022-03-17] MEDS ORDERED: LIDOCAINE 1% 20 ML MDV ONE (08:09)
[2022-03-17] MEDS ORDERED: HEPA 1000U/500MLS 1,000 UNIT/500 ML BAG IV ONE (08:09)
[2022-03-17] MEDS ORDERED: FENTANYL CITR 100 MCG/2 ML ONE (08:10)
[2022-03-17] MEDS ORDERED: MIDAZOLAM HCL 2 MG/2 ML INJ ONE (08:10)
[2022-03-17] MEDS ORDERED: NA CHLORIDE 0.9% 0 ML ONE (08:11)
[2022-03-17] MEDS ORDERED: ATROPINE SULF 1 MG/10 ML SYR IV ONE (08:11)
[2022-03-17] MEDS ORDERED: NA CHLORIDE 0.9% 500 ML ONE (08:27)
[2022-03-17] MEDS ORDERED: ENOXAPARIN 40 MG/0.4 ML SQ SCH (09:00)
[2022-03-17] MEDS ORDERED: LOSARTAN POTASSIUM 50 MG TABLET PO SCH (09:00)
[2022-03-17] MEDS ORDERED: ASPIRIN EC 81 MG TAB PO SCH (09:00)
[2022-03-17] MEDS ORDERED: ISOSORBIDE MONO SR 60 MG TAB PO SCH (09:00)
[2022-03-17] MEDS ORDERED: INSULIN GLARGINE 100 UNIT/ML SQ SCH (09:00)
[2022-03-17 10:30] VITALS: TEMP 98.7
[2022-03-17 11:26] VITALS: O2SAT 97
[2022-03-17 11:56] VITALS: BP 140/80
--- NOTE | 2022-03-17 20:16 | OP ---
Date of Procedure: 03/17/2022 Surgeon: Damon Gao MD Umbrella Supervisor: Ms. Chasidy Ovalle. Procedure In Detail: The patient admitted to Dr. Riojas on 03/16/2022 with unstable angina, brought t o the [facility] on 03/17/2022, prepped and draped in the routine sterile fashion, given Versed and fen tanyl for sedation. A 6-Slovak sheath introduced in the right common femoral artery successfully usi ng the Seldinger technique and 10 cc of Xylocaine. Angiography in the common femoral artery was norm al. Angio-Seal was used to close the case. Herberth catheters left and right were used to do the laurita gnostic catheterization and LV gram. She had a normal RCA, normal circumflex, normal left main. She had overlapped stents in the mid LAD and proximal LAD, all of which were patent without any restenos is. Left ventriculogram was done using the JR4 catheter. She had an elevated left ventricular end-d iastolic pressure of 20 mmHg, but normal ejection fraction of 60% to 65%. No wall motion abnormaliti es. Total Conscious Sedation: 45 minutes. Complications: None. Blood Loss: 5 cc. Postoperative Diagnoses: Elevated left ventricular end-diastolic pressure, patent left anterior desc ending stent. Plan: Continue medical therapy. She can go home after 2 hours of bed rest. I will see her in the o ffice in 2 weeks. ARACELI/MANE Voice ID: [id number] Report ID: [id number]
--- NOTE | 2022-03-18 10:59 | CON ---
Date of Consultation: 03/17/2022 Reason For Consultation: Unstable angina. History Of Present Illness: Ms. Nolen is a 66-year-old woman. She has a history of CAD. She is st atus post stent by Dr. Norris in 2018. She has a history of obesity, diabetes, hypertension, dyslipi demia. Came in with substernal chest pressure, radiating to the back and left shoulder with diaphore sis, nausea, but no vomiting. Complained of shortness of breath. Denied PND, orthopnea, pedal edema , palpitations, or syncope. [place] had been ruled out. EKG showed possible anterolateral ischemia. Cre atinine of 1.43. She is still having some chest pain when I saw her. Allergies: SHE IS ALLERGIC TO DEMEROL. Review of Systems: Negative. Social History: Negative. Family History: Noncontributory. Past Medical History: As stated above. Medications: At home include Imdur, aspirin, Coreg, Lipitor, insulin, losartan, and Aldactone. Physical Examination: Vital Signs: Stable, afebrile. HEENT: Negative. Neck: Supple with no bruit. Chest: Clear to auscultation and percussion. Cardiac: Revealed a regular rhythm and rate with S4 gallops. No murmurs, no rubs. Abdomen: Benign. Extremities: Revealed no clubbing, cyanosis, or edema. Diagnostic Data: As stated earlier. Impression And Plan: This is a patient with history of coronary artery disease, status post stent [place] [address] Norris, has been in the hospital recently, but has not followed up with Dr. Norris. She came back with unstable angina. I think it is best to do a left heart catheterization on her to def ine her coronary anatomy. The patient understands the risks and the benefits of the procedure and ag siri to proceed. Meanwhile, I will continue her medications for blood pressure, diabetes, and dyslip idemia. We will hold heparin on-call to the laborer orchard. We will see what the catheterization shows be fore making final decision. ARACELI/MANE Voice ID: [id number] Report ID: [id number]
== END 2022-03-17 13:26 | disposition home or self-care (01) ==
LOC: ER 16:11 → ERHOLD 18:50
PROVIDERS: ADMIT Hospitalist; ATTEND Hospitalist
DX: I25.110 Atherosclerotic heart disease of native coronary artery with unstable angina pectoris (principal); I12.9 Hypertensive chronic kidney disease with stage 1 through stage 4 chronic kidney disease, or unspecified chronic kidney disease; N18.30 Chronic kidney disease, stage 3 unspecified; E11.65 Type 2 diabetes mellitus with hyperglycemia; E78.5 Hyperlipidemia, unspecified; K21.9 Gastro-esophageal reflux disease without esophagitis; E66.9 Obesity, unspecified; Z68.29 Body mass index [BMI] 29.0-29.9, adult; Z95.5 Presence of coronary angioplasty implant and graft; Z20.822 Contact with and (suspected) exposure to COVID-19; Z79.82 Long term (current) use of aspirin; Z79.4 Long term (current) use of insulin; Z79.899 Other long term (current) drug therapy; Z88.6 Allergy status to analgesic agent; Z82.3 Family history of stroke
CPT/HCPCS: 93005; 85025 ×2; 80048; 36415; 82947 ×2; 85379; 84484 ×3; 80053; 83880; 71045; 93458; 99283; U0003; C1893; Q9966; C1760; G0269; J2250; J3010; J2270; G0378 ×4; J7040; J1644; J0583

== ENCOUNTER 2022-05-24 06:48 | Day surgery (SDC) | payer OTHER ==
[2022-05-23 11:54] LABS: Absolute Lymphocytes (CBC) 2.5 K/uL (0.7-4.9); Hematocrit 38.9 % (36.0-45.0); Lymphocytes % 38.2 % (15.3-44.8); MCV 89.2 fL (80-100); MPV 7.5 fL (7.6-11.3); RBC Red Blood Cell Count 4.37 M/uL (3.86-4.86)
[2022-05-23 12:06] LABS: SARS-CoV-2 Antigen Rapid Res Negative (Negative)
[2022-05-23 12:46] LABS: Potassium 4.9 mmol/L (3.5-5.1)
[2022-05-24] MEDS ORDERED: NA CHLORIDE 0.9% 1,000 ML ONE ×2 (07:35→09:25)
[2022-05-24] MEDS ORDERED: propofoL 200 MG/20 ML VIAL IV ONE ×2 (07:46→08:13)
[2022-05-24] MEDS ORDERED: LIDOCAINE 1% MPF 30 ML VIAL ONE (07:46)
[2022-05-24] MEDS ORDERED: SIMETHICONE 40 MG/ 0.6 ML ONE (08:04)
--- NOTE | 2022-05-24 09:13 | ENDO RPT ---
[address], [address] EGD PROCEDURE REPORT EXAM DATE: 05/24/2022 PATIENT NAME: Lauren Nolen MR#: [id number] BIRTHDATE: 1955 ATTENDING: Imer Tomas DR STATUS: outpatient EXTERMINATOR HELPER TERMITE: Dakota Clements RN and Ty Hodgson [facility] INDICATIONS: The patient is a 66 yr old Female here for an EGD due to dyspepsia and epigastric pain PROCEDURE PERFORMED: EGD with biopsy for H. pylori MEDICATIONS: Per Anesthesia. TOPICAL ANESTHETIC: none CONSENT: The patient understands the risks and benefits of the procedure and understands that these risks include, but are not limited to: sedation, allergic reaction, infection, perforation and/or bleeding. Alternative means of evaluation and treatment include, among others: physical exam, x-rays, and/or surgical intervention. The patient elects to proceed with this endoscopic procedure. DESCRIPTION OF PROCEDURE: During intra-op preparation period all mechanical medical equipment was checked for proper function. Hand hygiene and appropriate measures for infection prevention was taken. Procedure, possible complications, and alternatives including but not limited to the possibility of bleeding, perforation, tear, infection, sepsis, need for surgery, need for blood transfusion, and anesthesia related complications were explained to the patient. After the risks, benefits and alternatives of the procedure were thoroughly explained, Informed consent was verified, confirmed and timeout was successfully executed by the treatment team. The patient was placed in the left lateral position. The patient was anesthetized with topical anesthesia. Through the anesthetized oropharyngeal area, the scope was passed without any difficulty. The EG-[id number] ([id number]) endoscope was introduced through the mouth and advanced to the second portion of the duodenum. Retroflexed views revealed a small hiatal hernia. The gastroscope was then slowly withdrawn and removed. Mild gastritis was found in the body and the antrum of the stomach. A biopsy for H. pylori was taken. Multiple biopsies were obtained and sent to pathology. ADVERSE EVENTS: There were no complications. IMPRESSIONS: Mild gastritis was found in the body and the antrum of the stomach RECOMMENDATIONS: 1. anti-reflux regimen 2. acid suppression therapy 3. await biopsy results 4. follow-up: office 2 week(s) 5. avoid NSAIDS 6. follow-up of helicobacter pylori status, treat if indicated REPEAT EXAM: Imer Tomas DR eSigned: Imer Tomas DR 05/24/2022 9:13 AM cc: CPT CODES: ICD9 CODES: PATIENT NAME: Lauren Nolen MR#: [id number]
--- NOTE | 2022-05-24 09:16 | ENDO RPT ---
[address], [address] COLONOSCOPY PROCEDURE REPORT EXAM DATE: 05/24/2022 PATIENT NAME: Lauren Nolen MR #: [id number] BIRTHDATE: 1955 ATTENDING: Imer Tomas DR STATUS: outpatient MANUFACTURING PROCESS TECHNICIAN: Dakota Clements RN and Ty Hodgson [facility] [place] INDICATIONS: The patient is a 66 yr old Female here for a colonoscopy due to colon cancer screening PROCEDURE PERFORMED: Screening Colonoscopy MEDICATIONS: Per Anesthesia. ESTIMATED BLOOD LOSS: None CONSENT: The patient understands the risks and benefits of the procedure and understands that these risks include, but are not limited to: sedation, allergic reaction, infection, perforation and/or bleeding. Alternative means of evaluation and treatment include, among others: physical exam, x-rays, and/or surgical intervention. The patient elects to proceed with this endoscopic procedure. DESCRIPTION OF PROCEDURE: During intra-op preparation period all mechanical medical equipment was checked for proper function. Hand hygiene and appropriate measures for infection prevention was taken. Procedure, possible complications, alternatives including, but not limited to possibility of bleeding, perforation, tear, infection, sepsis, need for surgery, need for blood transfusion, were explained to the patient. After the risks, benefits and alternatives of the procedure were thoroughly explained, Informed consent was verified, confirmed and timeout was successfully executed by the treatment team. The patient was placed in the left lateral position. A digital rectal exam was performed and revealed internal hemorrhoids and A digital rectal exam was performed and revealed external hemorrhoids. After appropriate level of anesthesia, the scope was passed. The EC-[id number] ([id number]) endoscope was introduced through the anus and advanced to the cecum, which was identified by both the appendix and ileocecal valve. The quality of the prep was fair. The instrument was then slowly withdrawn as the colon was fully examined. Scope withdrawal time was 12 minutes. COLON FINDINGS: Small internal and external hemorrhoids were found. Mild diverticulosis was noted throughout the entire examined colon. No bleeding was noted from the diverticulosis. Retroflexed views revealed no abnormalities. The scope was then completely withdrawn from the patient and the procedure terminated. ADVERSE EVENTS: There were no complications. IMPRESSIONS: 1. Small internal and external hemorrhoids 2. Mild diverticulosis was noted throughout the entire examined colon RECOMMENDATIONS: 1. avoid NSAIDS for 2 weeks 2. await biopsy results 3. follow-up: office 2 week(s) 4. Monitor for any evidence of rectal bleeding. 5. yearly hemoquant 6. hemorrhoidal hygiene 7. yearly hemoccult starting in 4 years 8. low fiber / diverticular diet RECALL: Return in 5 year(s) for Colonoscopy. Imer Tomas DR eSigned: Imer Tomas DR 05/24/2022 9:15 AM cc: CPT CODES: ICD9 CODES: PATIENT NAME: Lauren Nolen MR#: [id number]
[2022-05-24] MEDS ORDERED: ONDANSETRON 4 MG/2 ML VIAL IV ONE (09:44)
[2022-05-24] MEDS ORDERED: ONDANSETRON 4 MG/2 ML VIAL ONE (09:44)
[2022-05-24 11:06] VITALS: O2SAT 100
[2022-05-24 11:09] VITALS: TEMP 97.4
[2022-05-24 11:12] VITALS: BP 125/77
== END 2022-05-24 10:05 | disposition home or self-care (01) ==
LOC: OR 06:48
PROVIDERS: ATTEND Surgery
PROC: 0DB58ZX Excision of Esophagus, Via Natural or Artificial Opening Endoscopic, Diagnostic (ICD-10-PCS; 2022-05-24)
PROC: 0DJD8ZZ Inspection of Lower Intestinal Tract, Via Natural or Artificial Opening Endoscopic (ICD-10-PCS; 2022-05-24)
PROC: 0DB98ZX Excision of Duodenum, Via Natural or Artificial Opening Endoscopic, Diagnostic (ICD-10-PCS; principal; 2022-05-24 08:00)
PROC: 0DB78ZX Excision of Stomach, Pylorus, Via Natural or Artificial Opening Endoscopic, Diagnostic (ICD-10-PCS; 2022-05-24 08:00)
DX: K29.50 Unspecified chronic gastritis without bleeding (principal); R10.13 Epigastric pain; R11.10 Vomiting, unspecified; K44.9 Diaphragmatic hernia without obstruction or gangrene; K64.4 Residual hemorrhoidal skin tags; K64.8 Other hemorrhoids; K57.30 Diverticulosis of large intestine without perforation or abscess without bleeding; Z20.822 Contact with and (suspected) exposure to COVID-19; Z12.11 Encounter for screening for malignant neoplasm of colon
CPT/HCPCS: 85025; 80048; 36415; 88312; 82947; 88305; 87811; 43239; J2704 ×2; J7030 ×2; J2405 ×2; G0121

== ENCOUNTER 2023-03-24 23:02 | Emergency (ER) | payer OTHER ==
--- OUTSIDE RECORDS SUMMARY | 2023-03-24 23:21 | XMS REPORT | Continuity of Care Document ---
:1955 Author Organization [facility] t Address [address] [facility] [address] [place] [address] Care Team Providers Name Role Phone Anai Gil Primary Care Physician CAROL HUBBARD Attending Clinician Unavailable VINOD FLORES Attending Clinician Unavailable ROSALIA PATEL Attending Clinician Unavailable IRMA GLASGOW Attending Clinician Unavailable Lauren Cardenas MD Attending Clinician Doctor Unassigned, [place] Attending Clinician Unavailable ANAI PRIDE Attending Clinician Unavailable Carol Hubbard MD Attending Clinician Irma Cardona Attending Clinician Luiz LINK, Zeny KAndreasHAndreas Attending Clinician DIGNA JAIME Attending Clinician Unavailable Digna Jaime DO Attending Clinician SOLEDAD SAINI Attending Clinician Unavailable Soledad Yo Attending Clinician LAUREN CARDENAS Attending Clinician Unavailable TUCKER HENRY Attending Clinician Unavailable Tucker Henry MD Attending Clinician Donald Liu MD Attending Clinician ORACIO WOODARD Attending Clinician Unavailable Anamaria Chance Attending Clinician Unavailable Yasmeen Jauregui MD Attending Clinician Anai Gil Attending Clinician DONALD LIU Attending Clinician Unavailable Gabriel Farrell MD Attending Clinician ANAMARIA MARK Attending Clinician Unavailable Vaccine, [facility] Attending Clinician Unavailable Akin Howell DO Attending Clinician RADIOLOGY Attending Clinician Unavailable Radiology Attending Clinician Unavailable Tuyet Lo RN Attending Clinician Unavailable SHELDON PARK Attending Clinician Unavailable Chiqui Romero MD Attending Clinician [place] DO Attending Clinician GABRIEL FARRELL Attending Clinician Unavailable GABRIEL FARRELL Attending Clinician Unavailable PAULIE DUONG Attending Clinician Unavailable MAINE LUNDY Attending Clinician Unavailable Christiano WRAPPER COUNTERMaine Attending Clinician Lab, Ang - Db Attending Clinician Unavailable ZENY DEE Attending Clinician Unavailable ARISTIDES Attending Clinician Unavailable Raj [facility] Attending Clinician Pcp-Lab Attending Clinician Unavailable Kolton Ayers MD Attending Clinician Daina Hurtado MD Attending Clinician KOLTON AYERS Attending Clinician Unavailable Halima Corbin Attending Clinician 2, [facility] Lab Attending Clinician Unavailable GREGORIO STREETER Attending Clinician Unavailable Gavin Ayala RN Attending Clinician Unavailable Paulie Duong MD Attending Clinician NICOLASA SIMS Attending Clinician Unavailable Hannah Hicks MD Attending Clinician ROMEO_ALEXEY Attending Clinician Unavailable [facility], [facility] Neurology Continuity Attending Clinician Unavail able HANNAH HICKS Attending Clinician Unavailable AUGUST SILVA Attending Clinician Unavailable Mark LINK, Vindo Cruz Attending Clinician DAINA HURTADO Attending Clinician Unavailable [facility] Lab Main Attending Clinician Unavailable Amanda Evans MD Attending Clinician [phone] Zeke Ramirez MD Attending Clinician , [facility] Vascular Room 1 - Attending Clinician Unavailable Jorge Ratliff MD Attending Clinician JORGE RATLIFF Attending Clinician Unavailable Dagmar Dai RN Attending Clinician Unavailable Latosha LINK, Herman Rolon Attending Clinician HERMAN BARKER Attending Clinician Unavailable Bipin Salazar DO Attending Clinician Bryn Knutson MD Attending Clinician BRYN KNUTSON Attending Clinician Unavailable RASHEED CARROLL Attending Clinician Unavailable Akindaxa PAGAN, Oracio Rolon Attending Clinician [phone] Mary Castro RN, Jennifer Peña Attending Clinician Unavailable DOTTY ANDRE Attending Clinician Unavailable CHIQUI ROMERO Attending Clinician Unavailable NA PERLA Attending Clinician Unavailable Jacques Oneill RN Attending Clinician Unavailable Ayesha Reed RN Attending Clinician Unavailable Dotty Andre MD Attending Clinician Azalia Longoria RN Attending Clinician Wesley Melara Attending Clinician Amaris Villanueva RN Attending Clinician Unavailable BIPIN SALAZAR Attending Clinician Unavailable Lindsay Childers S Attending Clinician Michael Martin MD Attending Clinician MICHAEL MARTIN Attending Clinician Unavailable Vladimir Tay MD Attending Clinician VLADIMIR TAY Attending Clinician Unavailable Rell Harding RN Attending Clinician Unavailable Gaudencio Downey MD Attending Clinician CAROL HUBBARD Admitting Clinician Unavailable VINOD FLORES Admitting Clinician Unavailable Carol Hubbard MD Admitting Clinician DIGNA JAIME Admitting Clinician Unavailable SHELDON PARK Admitting Clinician Unavailable Sheldon Park DO Admitting Clinician ARISTIDES Admitting Clinician Unavailable JEFFREY Admitting Clinician Unavailable Latosha LINK, Herman Rolon Admitting Clinician HERMAN BARKER Admitting Clinician Unavailable Bryn Knutson MD Admitting Clinician BRYN KNUTSON Admitting Clinician Unavailable CHIQUI ROMERO Admitting Clinician Unavailable BIPIN SALAZAR Admitting Clinician Unavailable Mario LINK, Michael Admitting Clinician MICHAEL MARTIN Admitting Clinician Unavailable ALISHA ALATORRE Admitting Clinician Unavailable SOLEDAD SAINI Admitting Clinician Unavailable Vladimir Tay MD Admitting Clinician VLADIMIR TAY Admitting Clinician Unavailable Payers Payer Name Policy Type Policy Number Effective Date Expiration Date Jenifer kennedy [facility] DUAL [id number] 2013 COMP HMO D SNP 00:00:[address] [facility] [id number] 2019 00:00:00 [facility] [id number] 2020 DUAL COMPLETE 00:00:00 CHOICE Problems Condition Condition Condition Status Onset Resolution Last Treating Co mments Source Name Details Category Date Date Treatment Clinician Date DAHL DAHL Disease Active Overview: Univer s (dyspnea (dyspnea 8-04 Formattin ity of on on 00:00: g of this [place] exertion) exertion) 00 note Medi jayne might be Branch different from the original. Added automatic ally from request for surgery [id number] PAD PAD Disease Active Overview: Univer s (periphera (periphera 8-04 Formattin ity of l artery l artery 00:00: g of this [place] disease) disease) 00 note Medica l might be Branch different from the original. Added automatic ally from request for surgery [id number] Peripheral Peripheral Disease Active Overview : Univers vascular vascular 8-04 Formattin ity of disease, disease, 00:00: g of this [place] unspecifie unspecifie 00 note Me dical d d might be Branch different from the original. Added automatic ally from request for surgery [id number] Intractabl Intractabl Disease Active U isabel e e 5-23 ity of abdominal abdominal 00:[place] pain pain 00 Medical Branch Uncontroll Uncontroll Disease Active U isabel ed type 2 ed type 2 6-08 ity of diabetes diabetes 00:00: [place] mellitus mellitus 00 Medica l with with Branch hyperglyce hyperglyce francis francis Acquired Acquired Disease Active Unive rs hypothyroi hypothyroi 608 it y of dism dism 00:00: [place] 00 Medical Branch Rectal Rectal Disease Active Univers bleeding bleeding 09 ity of 00:00: Medical Branch Type 2 Type 2 Disease Active Univers diabetes diabetes 1-06 ity of mellitus mellitus 00:00: [place] without without 00 Medical complicati complicati Br anch on, on, without without long-term long-term current current use of use of insulin insulin Hyperglyce Hyperglyce Disease Active U isabel francis francis 1-06 ity of 00:00: [place] Medical Branch Other Other Disease Active 2019-10 Univers general general 1-30 ity of counseling counseling 00:00[place] and advice and advice 00 Me dical for for Branch contracept contracept hope hope management management Controlled Controlled Disease Active 2019-10 U isabel diabetes diabetes 1-30 ity of mellitus mellitus 00:00: [place] type 2 type 2 00 Medical with with Branch complicati complicati ons, ons, unspecifie unspecifie d whether d 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 Added automatic ally from request for surgery [id number] Symptomati Symptomati Disease Active Overview : Univers c c 6-14 Formattin ity of cholelithi cholelithi 00:00: g of this [place] asis asis 00 note Medical might be Branch different from the original. 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 Chest pain Chest pain Disease Active 2017-10 U nivers 11-04 ity of 00:00: [place] 00 Medical Branch Coronary Coronary Disease Active 2017-10 Unive rs artery artery 11-04 ity of disease disease 00:00: [place] involving involving 00 Medi [place] Branch 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 angina [...] Disease Active 2017-10 U nivers ia ia 10-08 ity of 00:00: [place] Medical Branch Atypical Atypical Disease Active 2017-10 Unive rs chest pain chest pain 0-31 it y of 00:00: [place] [facility] Obesity Obesity Disease Active Univers [...] Univers INGREDI 02-27 ity of 00:00: [place] [facility] MEPERIDI DRUG Active Hives 2014-10 Univers NE HCL INGREDI 10-08 ity of 00:00: [place] [facility] Meperidi Propensi Active Hives 2014-10 Univer s ne Hcl ty to 10-08 ity of adverse 00:00: [place] reaction Medical s Branch Social History Social Habit Start Date Stop Date Quantity Comments Source History of Cigarette Smoker Universi ty of tobacco use [facility] Alcohol intake 2023-01-19 2023-01-19 Ex-drinker [place] of 00:00:00 00:00:00 (finding) [facility] Exposure to 2023-01-06 2023-01-16 Not sure [place] of SARS-CoV-2 00:00:00 11:10:00 [facility] (event) Branch Tobacco use and 2023-01-16 2023-01-16 Smokeless tobacco Un iversity of exposure 00:00:00 00:00:00 non-user [facility] Tobacco Comment 2022-11-01 2022-11-01 Occas x 2 years Univ ersity of 00:00:00 00:00:00 [facility] Branch Education 2020-10-16 2020-10-16 10 University of 00:00:00 00:00:00 [facility] History SDOH 2020-02-25 2020-02-25 5 University o f Financial 00:00:00 00:00:00 [place] [facility] History SDTX Food 2020-02-25 2020-02-25 1 Univers ity of Worry 00:00:00 00:00:00 [place] [facility] History SDOH Food 2020-02-25 2020-02-25 1 Univers ity of Scarcity 00:00:00 00:00:00 [place] [facility] History [facility] 2020-02-25 2020-02-25 2 University o f Transport Med 00:00:00 00:00:00 [place] Medic al Branch History [facility] 2020-02-25 2020-02-25 2 [place] o f Transport Non-Med 00:00:00 00:00:00 [facility] Sex [birth year] At [birth year] Universit y of 00:00:00 00:00:00 [facility] Smoking Status Start Date Stop Date Source Occasional tobacco 2023-01-16 00:00:00 [facility] smoker [facility] Branch Ex-smoker 2020-10-16 00:00:00 2020-10-16 [place] o [facility] 00:00:00 [facility] Medications Ordered Filled Start Stop Current Ordering Indication Dosage Frequency Signature Comments Components Source Medication Medication Date Date Medication? Clinician (SIG) Name Name semaglutide Yes [id number] INJECT Univers (OZEMPIC) 1 5-29 SUBCUTANEO it y of mg/dose (4 00:00: USLY 1 MG [place] mg/3 mL) 00 EVERY WEEK Medic al PnIj Branch DIRECTED No further refills until follow up scheduled. aspirin 81 2022-0 Yes 81mg Take 1 Unive rs mg chewable 4-13 tablet by ity of tablet 17:23: mouth in [place] [address] the Medical morning. Branch aspirin 81 2022-0 Yes 81mg Take 1 Unive rs mg chewable 4-13 tablet by ity of tablet 17:23: mouth in [place] [address] the Medical morning. Branch aspirin 81 2022-0 Yes 81mg Take 1 Unive rs mg chewable 4-13 tablet by ity of tablet 17:23: mouth in [place] [address] the Medical morning. Branch aspirin 81 2022-0 Yes 81mg Take 1 Unive rs mg chewable 4-13 tablet by ity of tablet 17:23: mouth in [place] [address] the Medical morning. Branch aspirin 81 2023-0 Yes 81mg Take 1 Unive rs mg chewable 01-18 tablet by ity of tablet 17:23: mouth in [place] 08 the Medical morning. Branch sodium 2022- No PRN, Univers chloride 01-18 Starting ity of (NS) 13:56: 14:05 on Emma [place] injection 00 :38 23 at [facility] jayne 0856, Branch Until Emma 01/18/23 at 0905, Routine, Intra-op neomycin-po 2022- No PRN, Unive rs lymyxin-dex 01-18 Starting ity of amethasone 13:56: 14:05 [place] (MAXITROL) 00 :38 01/18/[address] [facility] ical 3.5 0856, Branch mg/g-10,000 Until [place] unit/g-0.1 01/18/23 at % 0905, ophthalmic Routine, ointment Intra-op gentamicin 2022- No PRN, Univer s injection 01-18 Starting ity o f 13:56: 14:05 on Emma [place] 00 :38 01/18/[address] [facility] 0856, Branch Until [place] 01/18/23 at 0905, NENA, Intra-op dexamethaso 2022- No PRN, Unive rs ne 01-18 Starting ity of (DECADRON 13:56: 14:05 on Emma [place] PHOSPHATE) 00 :38 01/18/23 at Med ical injection 0856, Branch Until [place] 01/18/23 at 0905, Routine, Intra-op ceFAZolin 2022- No PRN, Univers (ANCEF) 01-18 Starting ity of injection 13:56: 14:05 on Emma [place] 00 :38 01/18/[address] [facility] 0856, Branch Until [place] 01/18/23 at 0905, NENA, Intra-op chondroitin 2022- No PRN, Unive rs sulf-sod 01-18 Starting ity of hyaluronate 13:50: 14:05 on [place] as (DUOVISC 00 :38 01/18/23 at Medic al VISCO 0850, Branch ELASTIC) Until [place] intraocular 01/18/23 at injection 0905, Routine, Intra-op EPINEPHrine 2022- No PRN, Unive rs (PF) 01-18 Starting ity of 1:1,000 (1 13:49: 14:05 on [facility] [place] mg/mL) 00 :38 01/18/[address] [facility] (ADRENALIN 0849, Branch (PF)) Until [place] injection 01/18/23 at 0905, Routine, Intra-op balanced 2022- No PRN, Univers salt soln 01-18 Starting ity o f no.2 irrig. 13:49: 14:05 on [facility] as (BSS) 00 :38 01/18/[address] [facility] ophthalmic 0849, Branch solution Until [place] 01/18/23 at 0905, Routine, Intra-op water for 2022- No PRN, Univers irrigation 01-18 Starting ity of irrigation 13:43: 14[facility] 01/18[facility]23 at Medic al 0843, Branch Until [place] 01/18/23 at 0905, Routine, Intra-op tetracaine 2022- No PRN, Univer s (PONTOCAINE 01-18 Starting ity of ) 0.5 % 13:41: 14:05 on [facility] ophthalmic 00 :38 01/18/23 at Med ical drops 0841, Branch Until [place] 01/18/23 at 0905, Routine, Intra-op eye block 2022- No PRN, Univers syringe 11 01-18 Starting ity of mL 13:40: 14:05 on [facility] 00 :38 01/18/[address] [facility] 0840, Branch Until [place] 01/18/23 at 0905, Intra-op cyclopent 2022- No .5mL 0.5 mL, Univ ers 1%-tropic 01-18 Right Eye, ity of 1%-phenyl 12:45: 12:48 ONCE, 1 [place] 2.5%-ketor 00 :00 dose, On Medic al 0.5% [facility] (MYDRIATIC 01/18/23 at #5) 0745, ophthalmic Routine, solution DSU Pre-op syringe 0.5 mL lactated 0 2022- No 1000mL at 42 Unive rs ringers IV 01-18 mL/hr, ity of infusion 12:45: 12:56 1,000 mL, [place] 1,000 mL 00 :00 IV Medical Infusion, Branch ONCE, 1 dose, On [place] 01/18/23 at 0745, Routine, DSU Pre-op cyclopent 2022- No .5mL 0.5 mL, Univ ers 1%-tropic 01-18 Right Eye, ity of 1%-phenyl 12:45: 12:48 ONCE, 1 [place] 2.5%-ketor 00 :00 dose, On Medic al 0.5% [place] Branch (MYDRIATIC 01/18/23 at #5) 0745, ophthalmic Routine, solution DSU Pre-op syringe 0.5 mL lactated 0 2022- No 1000mL at 42 Unive rs ringers IV 01-18 mL/hr, ity of infusion 12:45: 12:56 1,000 mL, [place] 1,000 mL 00 :00 IV Medical Infusion, Branch ONCE, 1 dose, On [place] 01/18/23 at 0745, Routine, DSU Pre-op pregabalin 2022- No 200mg Take 1 Uni vers 200 mg 01-18 capsule by ity of capsule 09:02: 00:00 mouth in [place] 54 :00 the [facility] Branch and 1 capsule at noon and 1 capsule in the evening. pregabalin 0 2022- No 200mg Take 1 Uni vers 200 mg 01-18 capsule by ity of capsule 09:02: 00:00 mouth in [place] 54 :[address] [facility] morning Branch and 1 capsule at noon and 1 capsule in the evening. semaglutide Yes [id number] injeINJECT Univers (OZEMPIC) 1 4-05 1 MG ity o f mg/dose (4 00:00: DIRECTED [place] mg/3 mL) 00 WEEKLY. Medical PnIj MUST CALL Branch CLINIC AND SCHEDULE FOLLOW UP APPT BEFORE ADDITIONAL REFILLS CAN BE APPROVED. spironolact Yes [id number] 25mg Take 1 Univers one 25 mg 4-05 tablet by ity o f tablet 00:00: mouth in [place] the Medical morning. Branch Please do labs. Orders placed. amLODIPine 2023-0 Yes [id number] 2.5mg Take 1 Univers 2.5 mg 4-05 tablet by ity of tablet 00:00: mouth in [place] the Medical morning. Branch spironolact 3-0 Yes [id number] 25mg Take 1 Univers one 25 mg 4-05 tablet by ity o f tablet 00:00: mouth in [place] the Medical morning. Branch Please do labs. Orders placed. amLODIPine 2023-0 Yes [id number] 2.5mg Take 1 Univers 2.5 mg 4-05 tablet by ity of tablet 00:00: mouth in [place] the Medical morning. Branch isosorbide 3-0 Yes 60mg Take 1 Unive rs mononitrate 4-05 tablet by ity of 60 mg 24 hr 00:00: [place] tablet 00 [facility] spironolact 3-0 Yes [id number] 25mg Take 1 Univers one 25 mg 4-05 tablet by ity o f tablet 00:00: mouth in [place] the Medical morning. Branch Please do labs. Orders placed. amLODIPine 2023-0 Yes [id number] 2.5mg Take 1 Univers 2.5 mg 4-05 tablet by ity of tablet 00:00: mouth in [place] the Medical morning. Branch isosorbide 3-0 Yes 60mg Take 1 Unive rs mononitrate 4-05 tablet by ity of 60 mg 24 hr 00:00: [place] tablet 00 [facility] semaglutide 3-0 Yes [id number] injeINJECT Univers (OZEMPIC) 1 4-05 1 MG ity o f mg/dose (4 00:00: DIRECTED [place] mg/3 mL) 00 WEEKLY. Medical PnIj MUST CALL [place] CLINIC AND SCHEDULE FOLLOW UP APPT BEFORE ADDITIONAL REFILLS CAN BE APPROVED. spironolact 2023-0 Yes [id number] 25mg Take 1 Univers one 25 mg 4-05 tablet by ity o f tablet 00:00: mouth in [place] 00 the Medical morning. Branch Please do labs. Orders placed. amLODIPine 2023-0 Yes [id number] 2.5mg Take 1 Univers 2.5 mg 4-05 tablet by ity of tablet 00:00: mouth in [place] the Medical morning. [place] isosorbide 3-0 Yes 60mg Take 1 Unive rs mononitrate 4-05 tablet by ity of 60 mg 24 hr 00:00: [place] tablet 00 [facility] semaglutide 3-0 Yes [id number] injeINJECT Univers (OZEMPIC) 1 4-05 1 MG ity o f mg/dose (4 00:00: DIRECTED [place] mg/3 mL) 00 WEEKLY. Medical PnIj MUST CALL [place] CLINIC AND SCHEDULE FOLLOW UP APPT BEFORE ADDITIONAL REFILLS CAN BE APPROVED. spironolact 3-0 Yes [id number] 25mg Take 1 Univers one 25 mg 4-05 tablet by ity o f tablet 00:00: mouth in [place] the Medical morning. Branch Please do labs. Orders placed. amLODIPine 3-0 Yes [id number] 2.5mg Take 1 Univers 2.5 mg 4-05 tablet by ity of tablet 00:00: mouth in [place] the Medical morning. Branch isosorbide 3-0 Yes 60mg Take 1 Unive rs mononitrate 4-05 tablet by ity of 60 mg 24 hr 00:00: [place] tablet 00 [facility] semaglutide 3-0 Yes [id number] injeINJECT Univers (OZEMPIC) 1 4-05 1 MG ity o f mg/dose (4 00:00: DIRECTED [place] mg/3 mL) 00 WEEKLY. Medical PnIj MUST CALL [place] CLINIC AND SCHEDULE FOLLOW UP APPT BEFORE ADDITIONAL REFILLS CAN BE APPROVED. spironolact 3-0 Yes [id number] 25mg Take 1 Univers one 25 mg 4-05 tablet by ity o f tablet 00:00: mouth in [place] the Medical morning. Branch Please do labs. Orders placed. amLODIPine 2023-0 Yes [id number] 2.5mg Take 1 Univers 2.5 mg 4-05 tablet by ity of tablet 00:00: mouth in [place] the Medical morning. Branch isosorbide 2023-0 Yes 60mg Take 1 Unive rs mononitrate 4-05 tablet by ity of 60 mg 24 hr 00:00: [place] tablet 00 [facility] semaglutide 3-0 Yes [id number] injeINJECT Univers (OZEMPIC) 1 4-05 1 MG ity o f mg/dose (4 00:00: DIRECTED [place] mg/3 mL) 00 WEEKLY. Medical PnIj MUST CALL Branch CLINIC AND SCHEDULE FOLLOW UP APPT BEFORE ADDITIONAL REFILLS CAN BE APPROVED. spironolact 3-0 Yes [id number] 25mg Take 1 Univers one 25 mg 4-05 tablet by ity o f tablet 00:00: mouth in [place] the Medical morning. Branch Please do labs. Orders placed. amLODIPine 3-0 Yes [id number] 2.5mg Take 1 Univers 2.5 mg 4-05 tablet by ity of tablet 00:00: mouth in [place] the morning. Branch isosorbide 2022-0 Yes 60mg Take 1 Unive rs mononitrate 4-05 tablet by ity of 60 mg 24 hr 00:00: [place] tablet 00 [facility] spironolact 2022-0 Yes [id number] 25mg Take 1 Univers one 25 mg 4-05 tablet by ity o f tablet 00:00: mouth in [place] the morning. Branch Please do labs. Orders placed. amLODIPine 3-0 Yes [id number] 2.5mg Take 1 Univers 2.5 mg 4-05 tablet by ity of tablet 00:00: mouth in [place] the morning. Branch isosorbide 2022-0 Yes 60mg Take 1 Unive rs mononitrate 4-05 tablet by ity of 60 mg 24 hr 00:00: [place] tablet 00 [facility] semaglutide 2022- No [id number] injeINJECT Univers (OZEMPIC) 1 4-05 05-29 1 MG ity of mg/dose (4 00:00: 00:00 [place]ED [place] mg/3 mL) 00 :00 WEEKLY. Medical PnIj MUST CALL Branch CLINIC AND SCHEDULE FOLLOW UP APPT BEFORE ADDITIONAL REFILLS CAN BE APPROVED. FENTanyl PF 2022- No 50ug 50 mcg, Un michael (SUBLIMAZE 01-07 Intramuscu it y of (PF)) 11:15: 10:33 lar, ONCE, [place] injection 00 :00 1 dose, On Medi jayne 50 mcg 01/07/23 Branch at 0615, Routine ketorolac 2022- No 15mg 15 mg, Unive rs (TORADOL) 01-07 Intramuscu ity of injection 10:15: 09:33 [place], ONCE, [place] 15 mg 00 :00 1 dose, On Medical 01/07/23 Branch at 0515, Routine dexamethaso 2022-0 2022- No 10mg 10 mg, Uni vers ne sod phos 01-07 Intramuscu i ty of PF 09:30: 09:33 lar, ONCE, [place] injection 00 :00 1 dose, On Medi jayne 10 mg 01/07/23 Branch at 0430, 1 mL dexamethaso 2022- No 10mg 10 mg, Uni vers ne 01-04 Oral, ity of (DECADRON 00:30: 00:30 ONCE, 1 [place] PHOSPHATE) 00 :00 dose, On Medic al injection Wed Branch 10 mg 01/03/23 at 1930, Routine ketorolac 2022-2022- No 30mg 30 mg, Unive rs (TORADOL) 01-04 Intramuscu ity of injection 00:30: 23:34 [place], ONCE, [place] 30 mg 00 :00 1 dose, On Medical Wed Branch 01/03/23 at 1930, Routine ketorolac 2022-0 Yes 10mg Take 1 Univer s 10 mg 3-30 tablet by ity of tablet 00:00: mouth as [place] 00 needed. Medical Branch ketorolac 2022-0 Yes 10mg Take 1 Univer s 10 mg 3-30 tablet by ity of tablet 00:00: mouth as [place] 00 needed. Medical Branch ketorolac 2023-0 Yes 10mg Take 1 Univer s 10 mg 3-30 tablet by ity of tablet 00:00: mouth as [place] 00 needed. Medical Branch ketorolac 2023-0 Yes 10mg Take 1 Univer s 10 mg 3-30 tablet by ity of tablet 00:00: mouth as [place] 00 needed. Medical Branch ketorolac 2023-0 Yes 10mg Take 1 [facility] 10 mg 3-30 tablet by [facility] of tablet 00:00: mouth as [place] 00 needed. Medical Branch methocarbam 2022-0 202- No 1500mg 1,500 mg, [facility] oL 01-03 Oral, ity of (ROBAXIN) 23:30: 23:30 ONCE, 1 [place] tablet 00 :[place] dose, On Medical 1,500 mg Wed Branch 01/03/23 at 1830, NENA methocarbam 2022- Yes [id number] 500mg Take 1 [facility] oL 500 mg 01-03 tablet by ity of tablet 00:00: 04:59 mouth 4 [place] 00 :00 (four) Medical times Branch daily for 7 days. methocarbam 2022- Yes [id number] 500mg Take 1 [facility] oL 500 mg 01-03 tablet by ity of tablet 00:00: 04:59 mouth 4 [place] 00 :00 (four) Medical times Branch daily for 7 days. methocarbam 2022- Yes [id number] 500mg Take 1 [facility] oL 500 mg 01-03 tablet by ity of tablet 00:00: 04:59 mouth 4 [place] 00 :00 (four) Medical times Branch daily for 7 days. methocarbam 2022- Yes [id number] 500mg Take 1 [facility] oL 500 mg 01-03 tablet by ity of tablet 00:00: 04:59 mouth 4 [place] 00 :00 (four) Medical times Branch daily for 7 days. methocarbam 2022- Yes [id number] 500mg Take 1 [facility] oL 500 mg 01-03 tablet by ity of tablet 00:00: 04:59 mouth 4 [place] 00 :00 (four) Medical times Branch daily for 7 days. methocarbam 2022- Yes [id number] 500mg Take 1 [facility] oL 500 mg 01-03 tablet by ity of tablet 00:00: 04:59 mouth 4 [place] 00 :00 (four) Medical times Branch daily for 7 days. methocarbam 2022- Yes [id number] 500mg Take 1 [facility] oL 500 mg 01-03- tablet by ity of tablet 00:00: 04:59 mouth 4 [place] 00 :00 (four) Medical times Branch daily for 7 days. lidocaine 5 2022- Yes [id number] 1{patch Apply 1 [facility] % (700 01-0330 } Patch to ity of mg/patch) 00:00: 04:59 [place] patch 00 :00 once now Medical for 1 Branch dose. ketorolac 2022- No [id number] 10mg Take 1 [facility] 10 mg 3-29 03-29 tablet by it[facility] of tablet 00:00: 00:00 mouth [place] 00 :00 every 6 Medical (six) Branch hours as needed for Pain (scale 7-10). lidocaine 5 2022- No [id number] 1{patch Apply 1 [facility] % (700 3-29 03-29 } Patch to it[facility] of mg/patch) 00:00: 00:00 area([place] patch 00 :00 once now Medical for 1 Branch dose. CARVEDILOL 0 Yes [id number] TAKE 1 [facility] 25 mg 3-28 TABLET BY ity of tablet 00:00: MOUTH IN [place] 00 THE Medical MORNING Branch AND 1 TABLET BY MOUTH IN THE EVENING CARVEDILOL 0 Yes [id number] TAKE 1 [facility] 25 mg 3-28 TABLET BY ity of tablet 00:00: MOUTH IN [place] 00 THE Medical MORNING Branch AND 1 TABLET BY MOUTH IN THE EVENING CARVEDILOL 0 Yes [id number] TAKE 1 [facility] 25 mg 3-28 TABLET BY ity of tablet 00:00: MOUTH IN [place] 00 THE Medical MORNING Branch AND 1 TABLET BY MOUTH IN THE EVENING CARVEDILOL 2022-0 Yes [id number] TAKE 1 [facility] 25 mg 3-28 TABLET BY ity of tablet 00:00: MOUTH IN [place] THE Medical MORNING Branch AND 1 TABLET BY MOUTH IN THE EVENING CARVEDILOL 2022-0 Yes [id number] TAKE 1 [facility] 25 mg 3-28 TABLET BY ity of tablet 00:00: MOUTH IN [place] 00 THE Medical MORNING Branch AND 1 TABLET BY MOUTH IN THE EVENING CARVEDILOL 2022-0 Yes [id number] TAKE 1 [facility] 25 mg 3-28 TABLET BY ity of tablet 00:00: MOUTH IN [place] THE Medical MORNING Branch AND 1 TABLET BY MOUTH IN THE EVENING CARVEDILOL 2022-0 Yes [id number] TAKE 1 [facility] 25 mg 3-28 TABLET BY ity of tablet 00:00: MOUTH IN [place] THE Medical MORNING Branch AND 1 TABLET BY MOUTH IN THE EVENING CARVEDILOL 2022-0 Yes [id number] TAKE 1 [facility] 25 mg 3-28 TABLET BY ity of tablet 00:00: MOUTH IN [place] 00 THE Medical MORNING Branch AND 1 TABLET BY MOUTH IN THE EVENING CARVEDILOL 0 Yes [id number] TAKE 1 [facility] 25 mg 3-28 TABLET BY ity of tablet 00:00: MOUTH IN [place] THE Medical MORNING Branch AND 1 TABLET BY MOUTH IN THE EVENING CARVEDILOL 0 Yes [id number] TAKE 1 [facility] 25 mg 3-28 TABLET BY ity of tablet 00:00: MOUTH IN [place] [address] THE Medical MORNING Branch AND 1 TABLET BY MOUTH IN THE EVENING CARVEDILOL 0 Yes [id number] TAKE 1 [facility] 25 mg 3-28 TABLET BY ity of tablet 00:00: MOUTH IN [place] [address] THE Medical MORNING Branch AND 1 TABLET BY MOUTH IN THE EVENING CARVEDILOL 0 Yes [id number] TAKE 1 [facility] 25 mg 3-28 TABLET BY ity of tablet 00:00: MOUTH IN [place] [address] THE Medical MORNING Branch AND 1 TABLET BY MOUTH IN THE EVENING CARVEDILOL Yes [id number] TAKE 1 [facility] 25 mg 3-28 TABLET BY ity of tablet 00:00: MOUTH IN [place] [address] THE Medical MORNING Branch AND 1 TABLET BY MOUTH IN THE EVENING ketorolac 2022- No 15mg 15 mg, [facility] (TORADOL) 12-30-25 Slow IV ity of injection 09:15: 08:26 Push, [place] 15 mg 00 :00 ONCE, 1 Medical dose, On Branch 12/30/22 at 0415, Routine FENTanyl PF 2022- No 50ug 50 mcg, [facility] (SUBLIMAZE 25 03-25 Slow IV ity o f (PF)) 08:30: 07:39 Push, [place] injection 00 :00 ONCE, 1 Medical 50 mcg dose, On Branch 12/30/22 at 0330, Routine acetaminoph 0 Yes [id number] 1{tbl} Take 1 [facility] en-codeine 3-25 tablet by ity of (TYLENOL-CO 00:00: mouth [place] DEINE #3) 00 every 4 Medical 300-30 mg (four) Branch tablet hours as needed for Pain (scale 7-10). Indication s: acute pain acetaminoph 2023-0 Yes 4647 1{tbl} Take 1 [facility] en-codeine 3-25 tablet by ity of (TYLENOL-CO 00:00: mouth [place] DEINE #3) 00 every 4 Medical 300-30 mg (four) Branch tablet hours as needed for Pain (scale 7-10). Indication s: acute pain acetaminoph 2023-0 Yes 4647 1{tbl} Take 1 [facility] en-codeine 3-25 tablet by ity of (TYLENOL-CO 00:00: mouth [place] DEINE #3) 00 every 4 Medical 300-30 mg (four) Branch tablet hours as needed for Pain (scale 7-10). Indication s: acute pain acetaminoph 2023-0 Yes 4647 1{tbl} Take 1 [facility] en-codeine 3-25 tablet by ity of (TYLENOL-CO 00:00: mouth [place] DEINE #3) 00 every 4 Medical 300-30 mg (four) Branch tablet hours as needed for Pain (scale 7-10). Indication s: acute pain acetaminoph 2023-0 Yes 4647 1{tbl} Take 1 [facility] en-codeine 3-25 tablet by ity of (TYLENOL-CO 00:00: mouth [place] DEINE #3) 00 every 4 Medical 300-30 mg (four) Branch tablet hours as needed for Pain (scale 7-10). Indication s: acute pain acetaminoph 2023-0 Yes 4647 1{tbl} Take 1 [facility] en-codeine 3-25 tablet by ity of (TYLENOL-CO 00:00: mouth [place] DEINE #3) 00 every 4 Medical 300-30 mg (four) Branch tablet hours as needed for Pain (scale 7-10). Indication s: acute pain acetaminoph 2023-0 Yes 4647 1{tbl} Take 1 [facility] en-codeine 3-25 tablet by ity of (TYLENOL-CO 00:00: mouth [place] DEINE #3) 00 every 4 Medical 300-30 mg (four) Branch tablet hours as needed for Pain (scale 7-10). Indication s: acute pain acetaminoph 2023-0 Yes 4647 1{tbl} Take 1 [facility] en-codeine 3-25 tablet by ity of (TYLENOL-CO 00:00: mouth [place] DEINE #3) 00 every 4 Medical 300-30 mg (four) Branch tablet hours as needed for Pain (scale 7-10). Indication s: acute pain acetaminoph 3-0 Yes 4647 1{tbl} Take 1 [facility] en-codeine 3-25 tablet by ity of (TYLENOL-CO 00:00: mouth [place] DEINE #3) 00 every 4 Medical 300-30 mg (four) Branch tablet hours as needed for Pain (scale 7-10). Indication s: acute pain acetaminoph 3-0 Yes 4647 1{tbl} Take 1 [facility] en-codeine 3-25 tablet by ity of (TYLENOL-CO 00:00: mouth [place] DEINE #3) 00 every 4 Medical 300-30 mg (four) Branch tablet hours as needed for Pain (scale 7-10). Indication s: acute pain acetaminoph 3-0 Yes 4647 1{tbl} Take 1 [facility] en-codeine 3-25 tablet by ity of (TYLENOL-CO 00:00: mouth [place] DEINE #3) 00 every 4 Medical 300-30 mg (four) Branch tablet hours as needed for Pain (scale 7-10). Indication s: acute pain acetaminoph 3-0 Yes 4647 1{tbl} Take 1 [facility] en-codeine 3-25 tablet by ity of (TYLENOL-CO 00:00: mouth [place] DEINE #3) 00 every 4 Medical 300-30 mg (four) Branch tablet hours as needed for Pain (scale 7-10). Indication s: acute pain acetaminoph 3-0 2023- No 4647 1{tbl} Take 1 [facility] en-codeine 3-25 03-25 tablet by ity of (TYLENOL-CO 00:00: 00:00 mouth [place] DEINE #3[place] 00 :00 every 4 Medical 300-30 mg (four) Branch tablet hours as needed for Pain (scale 7-10). Indication s: acute pain atorvastati 2022-0 Yes [id number] 80mg Take 1 [facility] n 80 mg 3-15 tablet by ity of tablet 00:00: mouth at [place] 00 bedtime. Medical Please do Branch fasting labs for refills spironolact 2022-0 Yes [id number] 25mg Take 1 [facility] one 25 mg 3-15 tablet by ity o f tablet 00:00: mouth in [place] the Medical morning. Branch Please do labs. Orders placed. atorvastati 3-0 Yes [id number] 80mg Take 1 [facility] n 80 mg 3-15 tablet by ity of tablet 00:00: mouth at [place] 00 bedtime. Medical Please do Branch fasting labs for refills spironolact 2022-0 Yes [id number] 25mg Take 1 [facility] one 25 mg 3-15 tablet by ity o f tablet 00:00: mouth in [place] the Medical morning. Branch Please do labs. Orders placed. atorvastati 2022-0 Yes [id number] 80mg Take 1 [facility] n 80 mg 3-15 tablet by ity of tablet 00:00: mouth at [place] 00 bedtime. Medical Please do Branch fasting labs for refills spironolact 2022-0 Yes [id number] 25mg Take 1 [facility] one 25 mg 3-15 tablet by ity o f tablet 00:00: mouth in [place] the Medical morning. Branch Please do labs. Orders placed. atorvastati 2022-0 Yes [id number] 80mg Take 1 [facility] n 80 mg 3-15 tablet by ity of tablet 00:00: mouth at [place] 00 bedtime. Medical Please do Branch fasting labs for refills spironolact 2022-0 Yes [id number] 25mg Take 1 [facility] one 25 mg 3-15 tablet by ity o f tablet 00:00: mouth in [place] the Medical morning. Branch Please do labs. Orders placed. atorvastati 3-0 Yes [id number] 80mg Take 1 [facility] n 80 mg 3-15 tablet by ity of tablet 00:00: mouth at [place] 00 bedtime. Medical Please do Branch fasting labs for refills spironolact 2022-0 Yes [id number] 25mg Take 1 [facility] one 25 mg 3-15 tablet by ity o f tablet 00:00: mouth in [place] the Medical morning. Branch Please do labs. Orders placed. atorvastati 3-0 Yes [id number] 80mg Take 1 [facility] n 80 mg 3-15 tablet by ity of tablet 00:00: mouth at [place] 00 bedtime. Medical Please do Branch fasting labs for refills spironolact 2022-0 Yes [id number] 25mg Take 1 [facility] one 25 mg 3-15 tablet by ity o f tablet 00:00: mouth in [place] the Medical morning. Branch Please do labs. Orders placed. atorvastati 2022-0 Yes [id number] 80mg Take 1 [facility] n 80 mg 3-15 tablet by ity of tablet 00:00: mouth at [place] 00 bedtime. Medical Please do Branch fasting labs for refills spironolact 2022-0 Yes [id number] 25mg Take 1 [facility] one 25 mg 3-15 tablet by ity o f tablet 00:00: mouth in [place] 00 the Medical morning. Branch Please do labs. Orders placed. atorvastati 2022-0 Yes [id number] 80mg Take 1 [facility] n 80 mg 3-15 tablet by ity of tablet 00:00: mouth at [place] [address] bedtime. Medical Please do Branch fasting labs for refills spironolact 2022-0 Yes [id number] 25mg Take 1 [facility] one 25 mg 3-15 tablet by ity o f tablet 00:00: mouth in [place] the Medical morning. Branch Please do labs. Orders placed. atorvastati 2022-0 Yes [id number] 80mg Take 1 [facility] n 80 mg 3-15 tablet by ity of tablet 00:00: mouth at [place] [address] bedtime. Medical Please do Branch fasting labs for refills atorvastati 2022-0 Yes [id number] 80mg Take 1 [facility] n 80 mg 3-15 tablet by ity of tablet 00:00: mouth at [place] [address] bedtime. Medical Please do Branch fasting labs for refills atorvastati 2022-0 Yes [id number] 80mg Take 1 [facility] n 80 mg 3-15 tablet by ity of tablet 00:00: mouth at [place] [address] bedtime. Medical Please do Branch fasting labs for refills atorvastati 2022-0 Yes [id number] 80mg Take 1 [facility] n 80 mg 3-15 tablet by ity of tablet 00:00: mouth at [place] [address] bedtime. Medical Please do Branch fasting labs for refills atorvastati 2022-0 Yes [id number] 80mg Take 1 [facility] n 80 mg 3-15 tablet by ity of tablet 00:00: mouth at [place] [address] bedtime. Medical Please do Branch fasting labs for refills atorvastati 0 Yes [id number] 80mg Take 1 [facility] n 80 mg 3-15 tablet by ity of tablet 00:00: mouth at [place] [address] bedtime. Medical Please do Branch fasting labs for refills atorvastati 2022-0 Yes [id number] 80mg Take 1 [facility] n 80 mg 3-15 tablet by ity of tablet 00:00: mouth at [place] [address] bedtime. Medical Please do Branch fasting labs for refills atorvastati 0 Yes [id number] 80mg Take 1 [facility] n 80 mg 3-15 tablet by ity of tablet 00:00: mouth at [place] [address] bedtime. Medical Please do Branch fasting labs for refills spironolact 2022- No [id number] 25mg Take 1 [facility] one 25 mg 3-15 04-05 tablet by ity of tablet 00:00: 00:00 mouth in [place] 00 :00 the Medical morning. Branch Please do labs. Orders placed. spironolact 2022- No [id number] 25mg Take 1 [facility] one 25 mg 3-15 04-05 tablet by ity of tablet 00:00: 00:00 mouth in [place] 00 :00 the Medical morning. Branch Please do labs. Orders placed. LEVOTHYROXI Yes TAKE 1 [facility] NE 50 mcg 2-17 TABLET BY ity o f tablet 00:00: MOUTH IN [place] 00 THE Medical MORNING Branch LEVOTHYROXI 0 Yes TAKE 1 [facility] [place] 50 mcg 2-17 TABLET BY ity o f tablet 00:00: MOUTH IN [place] 00 THE Medical MORNING Branch LEVOTHYROXI 2022-0 Yes TAKE 1 [facility] [place] 50 mcg 2-17 TABLET BY ity o f tablet 00:00: MOUTH IN [place] 00 THE Medical MORNING Branch LEVOTHYROXI 0 Yes TAKE 1 [facility] [place] 50 mcg 2-17 TABLET BY ity o f tablet 00:00: MOUTH IN [place] 00 THE Medical MORNING Branch LEVOTHYROXI 0 Yes TAKE 1 [facility] [place] 50 mcg 2-17 TABLET BY ity o f tablet 00:00: MOUTH IN [place] 00 THE Medical MORNING Branch LEVOTHYROXI Yes TAKE 1 [facility] [place] 50 mcg 2-17 TABLET BY ity o f tablet 00:00: MOUTH IN [place] 00 THE Medical MORNING Branch LEVOTHYROXI 2023-0 Yes TAKE 1 [facility] [place] 50 mcg 2-17 TABLET BY ity o f tablet 00:00: MOUTH IN [place] 00 THE Medical MORNING Branch LEVOTHYROXI 2022-0 Yes TAKE 1 [facility] [place] 50 mcg 2-17 TABLET BY ity o f tablet 00:00: MOUTH IN [place] 00 THE Medical MORNING Branch LEVOTHYROXI 2022-0 Yes TAKE 1 [facility] [place] 50 mcg 2-17 TABLET BY ity o f tablet 00:00: MOUTH IN [place] 00 THE Medical MORNING Branch LEVOTHYROXI 2022-0 Yes TAKE 1 [facility] [place] 50 mcg 2-17 TABLET BY ity o f tablet 00:00: MOUTH IN [place] 00 THE Medical MORNING Branch LEVOTHYROXI 2022-0 Yes TAKE 1 [facility] [place] 50 mcg 2-17 TABLET BY ity o f tablet 00:00: MOUTH IN [place] 00 THE Medical MORNING Branch LEVOTHYROXI 2022-0 Yes TAKE 1 [facility] [place] 50 mcg 2-17 TABLET BY ity o f tablet 00:00: MOUTH IN [place] 00 THE Medical MORNING Branch LEVOTHYROXI 2022-0 Yes TAKE 1 [facility] [place] 50 mcg 2-17 TABLET BY ity o f tablet 00:00: MOUTH IN [place] 00 THE Medical MORNING Branch LEVOTHYROXI 2022-0 Yes TAKE 1 [facility] [place] 50 mcg 2-17 TABLET BY ity o f tablet 00:00: MOUTH IN [place] 00 THE Medical MORNING Branch LEVOTHYROXI 2022-0 Yes TAKE 1 [facility] [place] 50 mcg 2-17 TABLET BY ity o f tablet 00:00: MOUTH IN [place] 00 THE Medical MORNING Branch LEVOTHYROXI 2022-0 Yes TAKE 1 [facility] [place] 50 mcg 2-17 TABLET BY ity o f tablet 00:00: MOUTH IN [place] 00 THE Medical MORNING Branch LEVOTHYROXI 2022-0 Yes TAKE 1 [facility] [place] 50 mcg 2-17 TABLET BY ity o f tablet 00:00: MOUTH IN [place] 00 THE Medical MORNING Branch ATORVASTATI 2022-0 Yes [id number] TAKE 1 [facility] N 80 mg 2-15 TABLET BY ity of tablet 00:00: MOUTH [place] EVERY Medical NIGHT AT Branch BEDTIME ATORVASTATI 2022-0 Yes [id number] TAKE 1 [facility] N 80 mg 2-15 TABLET BY ity of tablet 00:00: MOUTH [place] EVERY Medical NIGHT AT Branch BEDTIME ATORVASTATI 0 2022- No [id number] TAKE 1 [facility] N 80 mg 2-15 03-15 TABLET BY ity of tablet 00:00: 00:00 MOUTH [place] 00 :00 EVERY Medical NIGHT AT Branch BEDTIME Lancing 0 Yes USE WITH [facility] Device Misc 2-08 LANCETS TO it y of 00:00: TEST BLOOD [place] GLUCOSE Medical Branch Lancing 2022-0 Yes USE WITH [facility] Device Misc 2-08 LANCETS TO it y of 00:00: TEST BLOOD [place] GLUCOSE Medical Branch Lancing 2022-0 Yes USE WITH [facility] Device Misc 2-08 LANCETS TO it y of 00:00: TEST BLOOD [place] GLUCOSE Medical Branch Lancing 2022-0 Yes USE WITH [facility] Device Misc 2-08 LANCETS TO it y of 00:00: TEST BLOOD [place] GLUCOSE Medical Branch Lancing 2022-0 Yes USE WITH [facility] Device Misc 2-08 LANCETS TO it y of 00:00: TEST BLOOD [place] GLUCOSE Medical Branch COMFORT EZ 2022-0 Yes USE TO [facility] PEN NEEDLES 2-06 INJECT ity of 31 gauge x 00:00: INSULIN [place] 3/16" [place] 00 THREE Medical TIMES Branch DAILY COMFORT EZ 2022-0 Yes USE TO [facility] PEN NEEDLES 2-06 INJECT it[facility] of 31 gauge x 00:00: INSULIN [place] 3/16" [place] 00 THREE Medical TIMES Branch DAILY COMFORT EZ 2022-0 Yes USE TO [facility] PEN NEEDLES 2-06 INJECT it[facility] of 31 gauge x 00:00: INSULIN [place] 3/16" [place] 00 THREE Medical TIMES Branch DAILY COMFORT EZ 2022-0 Yes USE TO [facility] PEN NEEDLES 2-06 INJECT it[facility] of 31 gauge x 00:00: INSULIN [place] 3/16" [place] 00 THREE Medical TIMES Branch DAILY COMFORT EZ 2022-0 Yes USE TO [facility] PEN NEEDLES 2-06 INJECT ity of 31 gauge x 00:00: INSULIN [place] 3/16" [place] 00 THREE Medical TIMES Branch DAILY pregabalin 2022-0 Yes 200mg Take 200 [facility] 200 mg 2-03 mg by ity of capsule 15:06: mouth in [place] 33 the Medical morning Branch and 200 mg at noon and 200 mg in the evening. pregabalin 2023-0 Yes 200mg Take 200 [facility] 200 mg 2-03 mg by ity of capsule 15:06: mouth in [place] [address] the Medical morning Branch and 200 mg at noon and 200 mg in the evening. pregabalin 2023-0 Yes 200mg Take 200 [facility] 200 mg 2-03 mg by ity of capsule 15:06: mouth in [place] [address] the Medical morning Branch and 200 mg at noon and 200 mg in the evening. pregabalin 2023-0 Yes 200mg Take 200 [facility] 200 mg 2-03 mg by ity of capsule 15:06: mouth in [place] [address] the Medical morning Branch and 200 mg at noon and 200 mg in the evening. pregabalin 2023-0 Yes 200mg Take 200 [facility] 200 mg 2-03 mg by ity of capsule 15:06: mouth in [place] [address] the Medical morning Branch and 200 mg at noon and 200 mg in the evening. pregabalin 2023-0 Yes 200mg Take 200 [facility] 200 mg 2-03 mg by ity of capsule 15:06: mouth in [place] [address] the Medical morning Branch and 200 mg at noon and 200 mg in the evening. pregabalin 2023-0 Yes 200mg Take 200 [facility] 200 mg 2-03 mg by ity of capsule 15:06: mouth in [place] [address] the Medical morning Branch and 200 mg at noon and 200 mg in the evening. pregabalin 2023-0 Yes 200mg Take 200 [facility] 200 mg 2-03 mg by ity of capsule 15:06: mouth in [place] [address] the Medical morning Branch and 200 mg at noon and 200 mg in the evening. pregabalin 2023-0 Yes 200mg Take 200 [facility] 200 mg 2-03 mg by ity of capsule 15:06: mouth in [place] [address] the Medical morning Branch and 200 mg at noon and 200 mg in the evening. pregabalin 2023-0 Yes 200mg Take 200 [facility] 200 mg 2-03 mg by ity of capsule 15:06: mouth in [place] [address] the Medical morning Branch and 200 mg at noon and 200 mg in the evening. pregabalin 2023-0 Yes 200mg Take 200 [facility] 200 mg 2-03 mg by ity of capsule 15:06: mouth in [place] [address] the Medical morning Branch and 200 mg at noon and 200 mg in the evening. pregabalin 2023-0 Yes 200mg Take 200 [facility] 200 mg 2-03 mg by ity of capsule 15:06: mouth in [place] [address] the Medical morning Branch and 200 mg at noon and 200 mg in the evening. pregabalin 2023-0 Yes 200mg Take 200 [facility] 200 mg 2-03 mg by ity of capsule 15:06: mouth in [place] [address] the Medical morning Branch and 200 mg at noon and 200 mg in the evening. aspirin 81 2023-0 Yes 81mg Take 81 mg U [facility] mg chewable 2-03 by mouth ity of tablet 15:05: in the [place] [address] morning. Medical Branch aspirin 81 2023-0 Yes 81mg Take 81 mg [facility] mg chewable 2-03 by mouth ity of tablet 15:05: in the [place] [address] morning. Medical Branch aspirin 81 2023-0 Yes 81mg Take 81 mg [facility] mg chewable 2-03 by mouth ity of tablet 15:05: in the [place] [address] morning. Medical Branch aspirin 81 2023-0 Yes 81mg Take 81 mg [facility] mg chewable 2-03 by mouth ity of tablet 15:05: in the [place] [address] morning. Medical Branch aspirin 81 2023-0 Yes 81mg Take 81 mg [facility] mg chewable 2-03 by mouth ity of tablet 15:05: in the [place] [address] morning. Medical Branch aspirin 81 2023-0 Yes 81mg Take 81 mg [facility] mg chewable 2-03 by mouth ity of tablet 15:05: in the [place] [address] morning. Medical Branch aspirin 81 2023-0 Yes 81mg Take 81 mg [facility] mg chewable 2-03 by mouth ity of tablet 15:05: in the [place] [address] morning. Medical Branch aspirin 81 2023-0 Yes 81mg Take 81 mg [facility] mg chewable 2-03 by mouth ity of tablet 15:05: in the [place] [address] morning. Medical Branch aspirin 81 2023-0 Yes 81mg Take 81 mg [facility] mg chewable 2-03 by mouth ity of tablet 15:05: in the [place] [address] morning. Medical Branch aspirin 81 2023-0 Yes 81mg Take 81 mg [facility] mg chewable 2-03 by mouth ity of tablet 15:05: in the [place] 19 morning. Medical Branch aspirin 81 2023-0 Yes 81mg Take 81 mg [facility] mg chewable 2-03 by mouth ity of tablet 15:05: in the [place] [address] morning. Medical Branch aspirin 81 2023-0 Yes 81mg Take 81 mg [facility] mg chewable 2-03 by mouth ity of tablet 15:05: in the [place] [address] morning. Medical Branch aspirin 81 2023-0 Yes 81mg Take 81 mg [facility] mg chewable 2-03 by mouth ity of tablet 15:05: in the [place] [address] morning. Medical Branch pregabalin 2023-0 Yes [id number] 75mg Take 1 [facility] 75 mg 2-02 capsule by ity of capsule 00:00: mouth in [place] [address] the Medical morning Branch and 1 capsule in the evening. pregabalin 2023-0 Yes [id number] 75mg Take 1 [facility] 75 mg 2-02 capsule by ity of capsule 00:00: mouth in [place] [address] the Medical morning Branch and 1 capsule in the evening. pregabalin 2023-0 Yes [id number] 75mg Take 1 [facility] 75 mg 2-02 capsule by ity of capsule 00:00: mouth in [place] [address] the Medical morning Branch and 1 capsule in the evening. pregabalin 2023-0 Yes [id number] 75mg Take 1 [facility] 75 mg 2-02 capsule by ity of capsule 00:00: mouth in [place] [address] the Medical morning Branch and 1 capsule in the evening. pregabalin 2023-0 Yes [id number] 75mg Take 1 [facility] 75 mg 2-02 capsule by ity of capsule 00:00: mouth in [place] [address] the Medical morning Branch and 1 capsule in the evening. pregabalin 2023-0 Yes [id number] 75mg Take 1 [facility] 75 mg 2-02 capsule by ity of capsule 00:00: mouth in [place] [address] the Medical morning Branch and 1 capsule in the evening. pregabalin 2023-0 Yes [id number] 75mg Take 1 [facility] 75 mg 2-02 capsule by ity of capsule 00:00: mouth in [place] [address] the Medical morning Branch and 1 capsule in the evening. pregabalin 2023-0 Yes [id number] 75mg Take 1 [facility] 75 mg 2-02 capsule by ity of capsule 00:00: mouth in [place] [address] the Medical morning Branch and 1 capsule in the evening. pregabalin 2023-0 Yes [id number] 75mg Take 1 [facility] 75 mg 2-02 capsule by ity of capsule 00:00: mouth in [place] [address] the Medical morning Branch and 1 capsule in the evening. pregabalin 2023-0 Yes [id number] 75mg Take 1 [facility] 75 mg 2-02 capsule by ity of capsule 00:00: mouth in [place] [address] the Medical morning Branch and 1 capsule in the evening. pregabalin 2023-0 Yes [id number] 75mg Take 1 [facility] 75 mg 2-02 capsule by ity of capsule 00:00: mouth in [place] [address] the Medical morning Branch and 1 capsule in the evening. pregabalin 2023-0 Yes [id number] 75mg Take 1 [facility] 75 mg 2-02 capsule by ity of capsule 00:00: mouth in [place] [address] the Medical morning Branch and 1 capsule in the evening. pregabalin 2023-0 Yes [id number] 75mg Take 1 [facility] 75 mg 2-02 capsule by ity of capsule 00:00: mouth in [place] [address] the Medical morning Branch and 1 capsule in the evening. pregabalin 2023-0 Yes [id number] 75mg Take 1 [facility] 75 mg 2-02 capsule by ity of capsule 00:00: mouth in [place] [address] the Medical morning Branch and 1 capsule in the evening. pregabalin 2023-0 Yes [id number] 75mg Take 1 [facility] 75 mg 2-02 capsule by ity of capsule 00:00: mouth in [place] [address] the Medical morning [place] and 1 capsule in the evening. pregabalin 2023-0 Yes [id number] 75mg Take 1 [facility] 75 mg 2-02 capsule by ity of capsule 00:00: mouth in [place] [address] the Medical morning Branch and 1 capsule in the evening. pregabalin 2023-0 Yes [id number] 75mg Take 1 [facility] 75 mg 2-02 capsule by ity of capsule 00:00: mouth in [place] [address] the Medical morning [place] and 1 capsule in the evening. pregabalin 2023-0 Yes [id number] 75mg Take 1 [facility] 75 mg 2-02 capsule by ity of capsule 00:00: mouth in [place] [address] the Medical morning [place] and 1 capsule in the evening. pregabalin 2023-0 Yes [id number] 75mg Take 1 [facility] 75 mg 2-02 capsule by ity of capsule 00:00: mouth in [address] morning [place] and 1 capsule in the evening. lactated 2022-0 Yes 1000mL at 50 Un[facility] s ringers IV 1-26 mL/hr, ity of infusion 15:15: 1,000 [place] 1,000 mL 00 IV Medical Infusion, Branch CONTINUOUS , Starting on [place] 11/02/22 at 0915, Until Discontinu ed, Routine, PACU lactated 2022-0 2022- No 1000mL at 50 Unive rs ringers IV 11-02- mL/hr, ity of infusion 15:15: 17:48 1,000 mL, [place] 1,000 mL 00 :05 IV Medical Infusion, Branch CONTINUOUS , Starting on [place] 11/02/22 at 0915, Until [place] 11/02/22 at 1148, Routine, PACU ondansetron 0 Yes 4mg 4 mg, Slow [facility] (ZOFRAN 11-02 IV Push, ity of (PF)) 15:14: PRN, 1 [place] injection 4 35 dose, Medical mg Starting Branch on [place] 11/02/22 at 0914, Until Discontinu ed, Routine, Nausea and Vomiting (N/V), PACU ondansetron 0 2022- No 4mg 4 mg, Slow [facility] (ZOFRAN 11-02 IV Push, ity of (PF)) 15:14: 17:48 PRN, 1 [place] injection 4 35 :05 dose, Medical mg Starting Branch on [place] 11/02/22 at 0914, Until [place] 11/02/22 at 1148, Routine, Nausea and Vomiting (N/V), PACU neomycin-po 2022- No PRN, [facility] rs lymyxin-dex 11-02 Starting ity of amethasone 14:52: 17:48 on [place] (MAXITROL) 00 :05 11/02/22 at Med ical 3.5 0852, Branch mg/g-10,000 Until [place] unit/g-0.1 11/02/22 at % 1148, ophthalmic Routine, ointment Intra-op chondroitin 2022-2022- No PRN, [facility] [place] [facility] sulf[facility] 11-02 Starting ity of hyaluronate 14:46: 15:13 on [place] (DUOVISC 00 :26 11/02/22 at Medic al VISCO 0846, Branch ELASTIC) Until [place] intraocular 11/02/22 at injection 0913, Routine, Intra-op EPINEPHrine 2022- No PRN, Unive rs (PF) 11-02 Starting ity of 1:1,000 (1 14:42: 17:48 on [place] mg/mL) 00 :05 11/02/[address] [facility] (ADRENALIN 0842, Branch (PF)) Until [place] injection 11/02/22 at 1148, Routine, Intra-op water for 2022- No PRN, [facility] irrigation 11-02 Starting ity of irrigation 14:42: 15:13 on [place] solution 00 :26 11/02/22 at Medic al 0842, Branch Until [place] 11/02/22 at 0913, Routine, Intra-op gentamicin 2022- No PRN, Univer s injection 11-02 Starting ity o f 14:42: 15:13 on Emma [place] 00 :26 11/02/22 at Medical 0842, Branch Until [place] 11/02/22 at 0913, NENA, Intra-op tetracaine 2022- No PRN, Univer s (PONTOCAINE 11-02 Starting ity of ) 0.5 % 14:38: 15:13 on Emma [place] ophthalmic 00 :26 11/02/22 at Med ical drops 0838, Branch Until [place] 11/02/22 at 0913, Routine, Intra-op eye block 2022- No PRN, [facility] syringe 11 11-02 Starting ity of mL 14:37: 15:13 on Emma [place] 00 :26 11/02/22 at Medical 0837, Branch Until [place] 11/02/22 at 0913, Intra-op dexamethaso 2022- No PRN, Unive rs ne 11-02 Starting ity of (DECADRON 14:25: 15:13 on Emma [place] PHOSPHATE) 00 :26 11/02/22 at Med ical injection 0825, Branch Until [place] 11/02/22 at 0913, Routine, Intra-op ceFAZolin 2022- No PRN, Univers (ANCEF) 11-02 Starting ity of injection 13:44: 15:13 on Emma [place] 00 :26 11/02/22 at Medical 0744, Branch Until [place] 11/02/22 at 0913, NENA, Intra-op cyclopent 2022- No .5mL 0.5 mL, Univ ers 1%-tropic 11-02 Left Eye, ity of 1%-phenyl 13:15: 13:15 ONCE, 1 [place] 2.5%-ketor 00 :00 dose, On Medic al 0.5% [facility] Branch (MYDRIATIC 11/02/22 at #5) 0715, ophthalmic Routine, solution DSU Pre-op syringe 0.5 mL lactated 2022- No 1000mL at 42 Unive rs ringers IV 11-02 mL/hr, ity of infusion 13:15: 13:15 1,000 mL, [place] 1,000 mL 00 :00 IV Medical Infusion, Branch ONCE, 1 dose, On Sun11/02/22 at 0715, Routine, DSU Pre-op cyclopent 2022- No .5mL 0.5 mL, Univ ers 1%-tropic 11-02 Left Eye, ity of 1%-phenyl 13:15: 13:15 ONCE, 1 [place] 2.5%-ketor 00 :00 dose, On Medic al 0.5% [facility] Branch (MYDRIATIC 11/02/22 at #5) 0715, ophthalmic Routine, solution DSU Pre-op syringe 0.5 mL lactated 2022- No 1000mL at 42 Unive rs ringers IV 11-02 mL/hr, ity of infusion 13:15: 13:15 1,000 mL, [place] 1,000 mL 00 :00 IV Medical Infusion, Branch ONCE, 1 dose, On [place] 11/02/22 at 0715, Routine, DSU Pre-op aspirin 81 2022-0 Yes 81mg Take 81 mg U nivers mg chewable 11-02 by mouth ity of tablet 09:48: in the [place] [id number] morning. Medical Branch aspirin 81 2022-0 Yes 81mg Take 81 mg U nivers mg chewable 1-26 by mouth ity of tablet 09:48: in the [place] morning. Medical Branch aspirin 81 2022-0 Yes 81mg Take 81 mg U nivers mg chewable 1-26 by mouth ity of tablet 09:48: in the [place] morning. Medical Branch aspirin 81 2022-0 Yes 81mg Take 81 mg U nivers mg chewable 1-26 by mouth ity of tablet 09:48: in the [place] morning. Medical Branch aspirin 81 2022-0 Yes 81mg Take 81 mg U nivers mg chewable 1-26 by mouth ity of tablet 09:48: in the [place] morning. Medical Branch aspirin 81 2022-0 Yes 81mg Take 81 mg U nivers mg chewable 1-26 by mouth ity of tablet 09:48: in the [place] morning. Medical Branch Insulin 2021-10 Yes 20U inject 20 Unive rs Glargine 2-24 Units ity of (LANTUS 00:00: under the [place] SOLOSTAR 00 skin in Medical U-100 the Branch INSULIN) morning 100 unit/mL and 20 (3 mL) Units in injection the evening. Insulin 2021-10 Yes 20U inject 20 Unive rs Glargine 2-24 Units ity of (LANTUS 00:00: under the [place] SOLOSTAR 00 skin in Medical U-100 the Branch INSULIN) morning 100 unit/mL and 20 (3 mL) Units in injection the evening. Insulin 2021-10 Yes 20U inject 20 Unive rs Glargine 2-24 Units ity of (LANTUS 00:00: under the [place] SOLOST[place] 00 skin in Medical U-100 the Branch INSULIN) morning 100 unit/mL and 20 (3 mL) Units in injection the evening. Insulin 2021-10 Yes 20U inject 20 Unive rs Glargine 2-24 Units ity of (LANTUS 00:00: under the [place] SOLOSTAR 00 skin in Medical U-100 the Branch INSULIN) morning 100 unit/mL and 20 (3 mL) Units in injection the evening. Insulin 2021-10 Yes 20U inject 20 Unive rs Glargine 2-24 Units ity of (LANTUS 00:00: under the [place] SOLOSTAR 00 skin in Medical U-100 the Branch INSULIN) morning 100 unit/mL and 20 (3 mL) Units in injection the evening. Insulin 2021-10 Yes 20U inject 20 Unive rs Glargine 2-24 Units ity of (LANTUS 00:00: under the [place] SOLOST[place] 00 skin in Medical U-100 the Branch INSULIN) morning 100 unit/mL and 20 (3 mL) Units in injection the evening. Insulin 2021-10 Yes 20U inject 20 Unive rs Glargine 2-24 Units ity of (LANTUS 00:00: under the [place] SOLOST[place] 00 skin in Medical U-100 the Branch INSULIN) morning 100 unit/mL and 20 (3 mL) Units in injection the evening. Insulin 2021-10 Yes 20U inject 20 Unive rs Glargine 2-24 Units ity of (LANTUS 00:00: under the [place] SOLOST[place] 00 skin in Medical U-100 the Branch INSULIN) morning 100 unit/mL and 20 (3 mL) Units in injection the evening. Insulin 2021-10 Yes 20U inject 20 Unive rs Glargine 2-24 Units ity of (LANTUS 00:00: under the [place] SOLOST[place] 00 skin in Medical U-100 the Branch INSULIN) morning 100 unit/mL and 20 (3 mL) Units in injection the evening. Insulin 2021-10 Yes 20U inject 20 Unive rs Glargine 2-24 Units ity of (LANTUS 00:00: under the [place] SOLOST[place] 00 skin in Medical U-100 the Branch INSULIN) morning 100 unit/mL and 20 (3 mL) Units in injection the evening. Insulin 2021-10 Yes 20U inject 20 Unive rs Glargine 2-24 Units ity of (LANTUS 00:00: under the [place] 00 skin in Medical U-100 the Branch INSULIN) morning 100 unit/mL and 20 (3 mL) Units in injection the evening. Insulin 2021-10 Yes 20U inject 20 Unive rs Glargine 2-24 Units ity of (LANTUS 00:00: under the [place] 00 skin in Medical U-100 the Branch INSULIN) morning 100 unit/mL and 20 (3 mL) Units in injection the evening. Insulin 2021-10 Yes 20U inject 20 Unive rs Glargine 2-24 Units ity of (LANTUS 00:00: under the [place] SOLOST[place] 00 skin in Medical U-100 the Branch INSULIN) morning 100 unit/mL and 20 (3 mL) Units in injection the evening. Insulin 2021-10 Yes 20U inject 20 Unive rs Glargine 2-24 Units ity of (LANTUS 00:00: under the [place] 00 skin in Medical U-100 the Branch INSULIN) morning 100 unit/mL and 20 (3 mL) Units in injection the evening. Insulin 2021-10 Yes 20U inject 20 Unive rs Glargine 2-24 Units ity of (LANTUS 00:00: under the [place] 00 skin in Medical U-100 the Branch INSULIN) morning 100 unit/mL and 20 (3 mL) Units in injection the evening. Insulin 2021-10 Yes 20U inject 20 Unive rs Glargine 2-24 Units ity of (LANTUS 00:00: under the [place] SOLOST[place] 00 skin in Medical U-100 the Branch INSULIN) morning 100 unit/mL and 20 (3 mL) Units in injection the evening. Insulin 2021-10 Yes 20U inject 20 Unive rs Glargine 2-24 Units ity of (LANTUS 00:00: under the [place] SOLOST[place] 00 skin in Medical U-100 the Branch INSULIN) morning 100 unit/mL and 20 (3 mL) Units in injection the evening. Insulin 2021-10 Yes 20U inject 20 Unive rs Glargine 2-24 Units ity of (LANTUS 00:00: under the [place] SOLOST[place] 00 skin in Medical U-100 the Branch INSULIN) morning 100 unit/mL and 20 (3 mL) Units in injection the evening. Insulin 2021-10 Yes 20U inject 20 Unive rs Glargine 2-24 Units ity of (LANTUS 00:00: under the [place] SOLOST[place] 00 skin in Medical U-100 the Branch INSULIN) morning 100 unit/mL and 20 (3 mL) Units in injection the evening. Insulin 2021-10 Yes 20U inject 20 Unive rs Glargine 2-24 Units ity of (LANTUS 00:00: under the [place] SOLOST[place] 00 skin in Medical U-100 the Branch INSULIN) morning 100 unit/mL and 20 (3 mL) Units in injection the evening. Insulin 2021-10 Yes 20U inject 20 Unive rs Glargine 2-24 Units ity of (LANTUS 00:00: under the [place] SOLOST[place] 00 skin in Medical U-100 the Branch INSULIN) morning 100 unit/mL and 20 (3 mL) Units in injection the evening. Insulin 2021-10 Yes 20U inject 20 Unive rs Glargine 2-24 Units ity of (LANTUS 00:00: under the [place] SOLOST[place] 00 skin in Medical U-100 the Branch INSULIN) morning 100 unit/mL and 20 (3 mL) Units in injection the evening. Insulin 2021-10 Yes 20U inject 20 Unive rs Glargine 2-24 Units ity of (LANTUS 00:00: under the [place] 00 skin in Medical U-100 the Branch INSULIN) morning 100 unit/mL and 20 (3 mL) Units in injection the evening. Insulin 2021-10 Yes 20U inject 20 Unive rs Glargine 2-24 Units ity of (LANTUS 00:00: under the [place] SOLOST[place] 00 skin in Medical U-100 the Branch INSULIN) morning 100 unit/mL and 20 (3 mL) Units in injection the evening. Insulin 2021-10 Yes 20U inject 20 Unive rs Glargine 2-24 Units ity of (LANTUS 00:00: under the [place] SOLOST[place] 00 skin in Medical U-100 the Branch INSULIN) morning 100 unit/mL and 20 (3 mL) Units in injection the evening. Insulin 2021-10 Yes 20U inject 20 Unive rs Glargine 2-24 Units ity of (LANTUS 00:00: under the [place] SOLOST[place] 00 skin in Medical U-100 the Branch INSULIN) morning 100 unit/mL and 20 (3 mL) Units in injection the evening. levothyroxi 2021-10 Yes 50ug Take 1 Univ ers ne 50 mcg 2-23 tablet by ity o f tablet 00:00: mouth every Medical morning. Branch levothyroxi 2021-10 Yes 50ug Take 1 Univ ers ne 50 mcg 2-23 tablet by ity o f tablet 00:00: mouth every Medical morning. Branch levothyroxi 2021-10 Yes 50ug Take 1 Univ ers ne 50 mcg 2-23 tablet by ity o f tablet 00:00: mouth [place] 00 every Medical morning. Branch levothyroxi 2021-10 Yes 50ug Take 1 Univ ers ne 50 mcg 2-23 tablet by ity o f tablet 00:00: mouth [place] 00 every Medical morning. Branch levothyroxi 2021-10 Yes 50ug Take 1 Univ ers ne 50 mcg 2-23 tablet by ity o f tablet 00:00: mouth [place] 00 every Medical morning. Branch levothyroxi 2021-10 Yes 50ug Take 1 Univ ers ne 50 mcg 2-23 tablet by ity o f tablet 00:00: mouth [place] 00 every Medical morning. Branch levothyroxi 2021-10 Yes 50ug Take 1 Univ ers ne 50 mcg 2-23 tablet by ity o f tablet 00:00: mouth [place] 00 every Medical morning. Branch levothyroxi 2021-10 Yes 50ug Take 1 Univ ers ne 50 mcg 2-23 tablet by ity o f tablet 00:00: mouth [place] 00 every Medical morning. Branch levothyroxi 2021-10 Yes 50ug Take 1 Univ ers ne 50 mcg 2-23 tablet by ity o f tablet 00:00: mouth [place] 00 every Medical morning. Branch levothyroxi 2021-10 Yes 50ug Take 1 Univ ers ne 50 mcg 2-23 tablet by ity o f tablet 00:00: mouth [place] 00 every Medical morning. Branch levothyroxi 2021-10 Yes 50ug Take 1 Univ ers ne 50 mcg 2-23 tablet by ity o f tablet 00:00: mouth [place] 00 every Medical morning. Branch levothyroxi 2021-10- No 50ug Take 1 Uni vers ne 50 mcg 2-23 02-17 tablet by ity of tablet 00:00: 00:00 mouth [place] 00 :00 every Medical morning. Branch isosorbide 2021-10 Yes [id number] 60mg Take 1 [facility] mononitrate 2-21 tablet by ity of 60 mg 24 hr 00:00: mouth in [place] tablet 00 the Medical morning Branch and 1 tablet in the evening. isosorbide 2021-10 Yes [id number] 60mg Take 1 [facility] mononitrate 2-21 tablet by ity of 60 mg 24 hr 00:00: mouth in [place] tablet 00 the Medical morning Branch and 1 tablet in the evening. isosorbide 2021-1 Yes [id number] 60mg Take 1 [facility] mononitrate 2-21 tablet by ity of 60 mg 24 hr 00:00: mouth in [place] tablet 00 the Medical morning Branch and 1 tablet in the evening. isosorbide 2021-1 Yes [id number] 60mg Take 1 [facility] mononitrate 2-21 tablet by ity of 60 mg 24 hr 00:00: mouth in [place] tablet 00 the Medical morning Branch and 1 tablet in the evening. isosorbide 1 Yes [id number] 60mg Take 1 [facility] mononitrate 2-21 tablet by ity of 60 mg 24 hr 00:00: mouth in [place] tablet 00 the Medical morning Branch and 1 tablet in the evening. isosorbide 2021-1 Yes [id number] 60mg Take 1 [facility] mononitrate 2-21 tablet by ity of 60 mg 24 hr 00:00: mouth in [place] tablet 00 the Medical morning Branch and 1 tablet in the evening. isosorbide 2021-1 Yes [id number] 60mg Take 1 [facility] mononitrate 2-21 tablet by ity of 60 mg 24 hr 00:00: mouth in [place] tablet 00 the Medical morning Branch and 1 tablet in the evening. isosorbide 2021-1 Yes [id number] 60mg Take 1 [facility] mononitrate 2-21 tablet by ity of 60 mg 24 hr 00:00: mouth in [place] tablet 00 the Medical morning Branch and 1 tablet in the evening. isosorbide 2021-1 Yes [id number] 60mg Take 1 [facility] mononitrate 2-21 tablet by ity of 60 mg 24 hr 00:00: mouth in [place] tablet 00 the Medical morning Branch and 1 tablet in the evening. isosorbide 2021-1 Yes [id number] 60mg Take 1 [facility] mononitrate 2-21 tablet by ity of 60 mg 24 hr 00:00: mouth in [place] tablet 00 the Medical morning Branch and 1 tablet in the evening. isosorbide 2021-1 Yes [id number] 60mg Take 1 [facility] mononitrate 2-21 tablet by ity of 60 mg 24 hr 00:00: mouth in [place] tablet 00 the Medical morning Branch and 1 tablet in the evening. isosorbide 2021-10 Yes [id number] 60mg Take 1 [facility] mononitrate 2-21 tablet by ity of 60 mg 24 hr 00:00: mouth in [place] tablet 00 the Medical morning Branch and 1 tablet in the evening. isosorbide 1 Yes [id number] 60mg Take 1 [facility] mononitrate 2-21 tablet by ity of 60 mg 24 hr 00:00: mouth in [place] tablet 00 the Medical morning Branch and 1 tablet in the evening. isosorbide 1 Yes [id number] 60mg Take 1 [facility] mononitrate 2-21 tablet by ity of 60 mg 24 hr 00:00: mouth in [place] tablet 00 the Medical morning Branch and 1 tablet in the evening. isosorbide 1 Yes [id number] 60mg Take 1 [facility] mononitrate 2-21 tablet by ity of 60 mg 24 hr 00:00: mouth in [place] tablet 00 the Medical morning Branch and 1 tablet in the evening. isosorbide 1 Yes [id number] 60mg Take 1 [facility] mononitrate 2-21 tablet by ity of 60 mg 24 hr 00:00: mouth in [place] tablet 00 the Medical morning Branch and 1 tablet in the evening. isosorbide 1 Yes [id number] 60mg Take 1 [facility] mononitrate 2-21 tablet by ity of 60 mg 24 hr 00:00: mouth in [place] tablet 00 the Medical morning Branch and 1 tablet in the evening. isosorbide 1 Yes [id number] 60mg Take 1 [facility] mononitrate 2-21 tablet by ity of 60 mg 24 hr 00:00: mouth in [place] tablet 00 the Medical morning Branch and 1 tablet in the evening. isosorbide 2021-1 Yes [id number] 60mg Take 1 [facility] mononitrate 2-21 tablet by ity of 60 mg 24 hr 00:00: mouth in [place] tablet 00 the Medical morning Branch and 1 tablet in the evening. isosorbide 2021-1 Yes [id number] 60mg Take 1 [facility] mononitrate 2-21 tablet by ity of 60 mg 24 hr 00:00: mouth in [place] tablet 00 the Medical morning Branch and 1 tablet in the evening. isosorbide 2021-10 Yes [id number] 60mg Take 1 [facility] mononitrate 2-21 tablet by ity of 60 mg 24 hr 00:00: mouth in [place] tablet 00 the Medical morning Branch and 1 tablet in the evening. isosorbide 2021-10- No [id number] 60mg Take 1 [facility] mononitrate 2-21 04-05 tablet by it y of 60 mg 24 hr 00:00: 00:00 mouth in [place] tablet 00 :00 the Medical morning Branch and 1 tablet in the evening. isosorbide 2021-10- No [id number] 60mg Take 1 [facility] mononitrate 2-21 04-05 tablet by it y of 60 mg 24 hr 00:00: 00:00 mouth in [place] tablet 00 :00 the Medical morning Branch and 1 tablet in the evening. isosorbide 2021-10- No [id number] 60mg Take 1 [facility] mononitrate 2-21 04-05 tablet by it y of 60 mg 24 hr 00:00: 00:00 mouth in [place] tablet 00 :00 the Medical morning Branch and 1 tablet in the evening. isosorbide 2021-10- No [id number] 60mg Take 1 [facility] mononitrate 2-21 04-05 tablet by it y of 60 mg 24 hr 00:00: 00:00 mouth in [place] tablet 00 :00 the Medical morning Branch and 1 tablet in the evening. spironolact 2021-10 Yes [id number] 25mg Take 1 [facility] one 25 mg 2-20 tablet by ity o f tablet 00:00: mouth in [place] 00 the Medical morning. Branch Please do labs. Orders placed. spironolact 2021-10 Yes [id number] 25mg Take 1 [facility] one 25 mg 2-20 tablet by ity o f tablet 00:00: mouth in [place] 00 the Medical morning. Branch Please do labs. Orders placed. spironolact 2021-10 Yes [id number] 25mg Take 1 [facility] one 25 mg 2-20 tablet by ity o f tablet 00:00: mouth in [place] 00 the Medical morning. Branch Please do labs. Orders placed. spironolact 2021-10 Yes [id number] 25mg Take 1 [facility] one 25 mg 2-20 tablet by ity o f tablet 00:00: mouth in [place] the Medical morning. Branch Please do labs. Orders placed. spironolact 2021-10 Yes [id number] 25mg Take 1 [facility] one 25 mg 2-20 tablet by ity o f tablet 00:00: mouth in [place] the Medical morning. Branch Please do labs. Orders placed. spironolact 2021-10 Yes [id number] 25mg Take 1 [facility] one 25 mg 2-20 tablet by ity o f tablet 00:00: mouth in [place] the Medical morning. Branch Please do labs. Orders placed. spironolact 2021-10 Yes [id number] 25mg Take 1 [facility] one 25 mg 2-20 tablet by ity o f tablet 00:00: mouth in [place] the Medical morning. Branch Please do labs. Orders placed. spironolact 2021-10 Yes [id number] 25mg Take 1 [facility] one 25 mg 2-20 tablet by ity o f tablet 00:00: mouth in [place] the Medical morning. Branch Please do labs. Orders placed. spironolact 2021-10 Yes [id number] 25mg Take 1 [facility] one 25 mg 2-20 tablet by ity o f tablet 00:00: mouth in [place] the Medical morning. Branch Please do labs. Orders placed. spironolact 2021-10 Yes [id number] 25mg Take 1 [facility] one 25 mg 2-20 tablet by ity o f tablet 00:00: mouth in [place] the morning. Branch Please do labs. Orders placed. spironolact 2021-10 Yes [id number] 25mg Take 1 [facility] one 25 mg 2-20 tablet by ity o f tablet 00:00: mouth in [place] the Medical morning. Branch Please do labs. Orders placed. spironolact 2021-10 Yes [id number] 25mg Take 1 [facility] one 25 mg 2-20 tablet by ity o f tablet 00:00: mouth in [place] the Medical morning. Branch Please do labs. Orders placed. spironolact 2021-10 Yes [id number] 25mg Take 1 [facility] one 25 mg 2-20 tablet by ity o f tablet 00:00: mouth in [place] the Medical morning. Branch Please do labs. Orders placed. spironolact 2021-103- No [id number] 25mg Take 1 [facility] one 25 mg 2-20 03-15 tablet by ity of tablet 00:00: 00:00 mouth in [place] 00 :00 the Medical morning. Branch Please do labs. Orders placed. ketoconazol 2021-10 Yes Apply Univers e 2 % 2-08 twice ity of shampoo 00:00: weekly for [address] carvediloL 2021-10 Yes [id number] 25mg Take 1 U nivers 25 mg 2-08 tablet by ity of tablet 00:00: mouth in [place] [address] the Medical morning Branch and 1 tablet in the evening. ketoconazol 2021-10 Yes Apply Univers e 2 % 2-08 twice ity of shampoo 00:00: weekly for [address] ketoconazol 2021-10 Yes Apply Univers e 2 % 2-08 twice ity of shampoo 00:00: weekly for [address] ketoconazol 2021-10 Yes Apply Univers e 2 % 2-08 twice ity of shampoo 00:00: weekly for [address] carvediloL 2021-10 Yes [id number] 25mg Take 1 U nivers 25 mg 2-08 tablet by ity of tablet 00:00: mouth in [place] [address] the Medical morning Branch and 1 tablet in the evening. ketoconazol 2021-10 Yes Apply Univers e 2 % 2-08 twice ity of shampoo 00:00: weekly for [address] carvediloL 2021-10 Yes [id number] 25mg Take 1 U nivers 25 mg 2-08 tablet by ity of tablet 00:00: mouth in [place] [address] the Medical morning Branch and 1 tablet in the evening. ketoconazol 2021-10 Yes Apply Univers e 2 % 2-08 twice ity of shampoo 00:00: weekly for [address] carvediloL 2021-10 Yes [id number] 25mg Take 1 U nivers 25 mg 2-08 tablet by ity of tablet 00:00: mouth in [place] [address] the Medical morning Branch and 1 tablet in the evening. ketoconazol 2021-10 Yes Apply Univers e 2 % 2-08 twice ity of shampoo 00:00: weekly for [address] carvediloL 2021-10 Yes [id number] 25mg Take 1 U nivers 25 mg 2-08 tablet by ity of tablet 00:00: mouth in [place] [address] the Medical morning Branch and 1 tablet in the evening. ketoconazol 2021-10 Yes Apply Univers e 2 % 2-08 twice ity of shampoo 00:00: weekly for [address] carvediloL 2021-10 Yes [id number] 25mg Take 1 U nivers 25 mg 2-08 tablet by ity of tablet 00:00: mouth in [place] [address] the Medical morning Branch and 1 tablet in the evening. ketoconazol 2021-10 Yes Apply Univers e 2 % 2-08 twice ity of shampoo 00:00: weekly for [address] carvediloL 2021-10 Yes [id number] 25mg Take 1 U nivers 25 mg 2-08 tablet by ity of tablet 00:00: mouth in [place] [address] the Medical morning Branch and 1 tablet in the evening. ketoconazol 2021-10 Yes Apply Univers e 2 % 2-08 twice ity of shampoo 00:00: weekly for [address] carvediloL 2021-10 Yes [id number] 25mg Take 1 U nivers 25 mg 2-08 tablet by ity of tablet 00:00: mouth in [place] [address] the Medical morning Branch and 1 tablet in the evening. ketoconazol 2021-10 Yes Apply Univers e 2 % 2-08 twice ity of shampoo 00:00: weekly for [address] carvediloL 2021-10 Yes [id number] 25mg Take 1 U nivers 25 mg 2-08 tablet by ity of tablet 00:00: mouth in [place] [address] [facility] morning Branch and 1 tablet in the evening. ketoconazol 2021-10 Yes Apply Univers e 2 % 2-08 twice ity of shampoo 00:00: weekly for [address] carvediloL 2021-10 Yes [id number] 25mg Take 1 U nivers 25 mg 2-08 tablet by ity of tablet 00:00: mouth in [place] [address] the Medical morning Branch and 1 tablet in the evening. ketoconazol 2021-10 Yes Apply Univers e 2 % 2-08 twice ity of shampoo 00:00: weekly for [address] carvediloL 2021-10 Yes [id number] 25mg Take 1 U nivers 25 mg 2-08 tablet by ity of tablet 00:00: mouth in [place] [address] [facility] morning Branch and 1 tablet in the evening. ketoconazol 2021-10 Yes Apply Univers e 2 % 2-08 twice ity of shampoo 00:00: weekly for [address] carvediloL 2021-10 Yes [id number] 25mg Take 1 U nivers 25 mg 2-08 tablet by ity of tablet 00:00: mouth in [place] [address] the [facility] Branch and 1 tablet in the evening. ketoconazol 2021-10 Yes Apply Univers e 2 % 2-08 twice ity of shampoo 00:00: weekly for [address] carvediloL 2021-10 Yes [id number] 25mg Take 1 U nivers 25 mg 2-08 tablet by ity of tablet 00:00: mouth in [place] [address] the [facility] Branch and 1 tablet in the evening. ketoconazol 2021-10 Yes Apply Univers e 2 % 2-08 twice ity of shampoo 00:00: weekly for [address] carvediloL 2021-10 Yes [id number] 25mg Take 1 U nivers 25 mg 2-08 tablet by ity of tablet 00:00: mouth in [place] [address] [address] [facility] morning Branch and 1 tablet in the evening. ketoconazol 2021-10 Yes Apply [facility] 2 % 2-08 twice ity of shampoo 00:00: weekly for [address] carvediloL 2021-10 Yes [id number] 25mg Take 1 U nivers 25 mg 2-08 tablet by ity of tablet 00:00: mouth in [place] [address] [facility] morning Branch and 1 tablet in the evening. ketoconazol 2021-10 Yes Apply [facility] e 2 % 2-08 twice ity of shampoo 00:00: weekly for [address] carvediloL 2021-10 Yes [id number] 25mg Take 1 U nivers 25 mg 2-08 tablet by ity of tablet 00:00: mouth in [place] [address] the Medical morning Branch and 1 tablet in the evening. ketoconazol 2021-10 Yes Apply [facility] e 2 % 2-08 twice ity of shampoo 00:00: weekly for [address] carvediloL 2021-10 Yes [id number] 25mg Take 1 U nivers 25 mg 2-08 tablet by ity of tablet 00:00: mouth in [place] [address] the Medical morning Branch and 1 tablet in the evening. ketoconazol 2021-10 Yes Apply [facility] e 2 % 2-08 twice ity of shampoo 00:00: weekly for [address] carvediloL 2021-10 Yes [id number] 25mg Take 1 U nivers 25 mg 2-08 tablet by ity of tablet 00:00: mouth in [place] [address] the [facility] Branch and 1 tablet in the evening. ketoconazol 2021-10 Yes Apply [facility] e 2 % 2-08 twice ity of shampoo 00:00: weekly for [address] carvediloL 2021-10 Yes [id number] 25mg Take 1 U nivers 25 mg 2-08 tablet by ity of tablet 00:00: mouth in [place] [address] [facility] morning Branch and 1 tablet in the evening. ketoconazol 2021-10 Yes Apply [facility] e 2 % 2-08 twice ity of shampoo 00:00: weekly for [address] carvediloL 2021-10 Yes [id number] 25mg Take 1 U nivers 25 mg 2-08 tablet by ity of tablet 00:00: mouth in [place] [address] [facility] morning Branch and 1 tablet in the evening. ketoconazol 2021-10 Yes Apply [facility] e 2 % 2-08 twice ity of shampoo 00:00: weekly for [address] ketoconazol 2021-10 Yes Apply [facility] e 2 % 2-08 twice ity of shampoo 00:00: weekly for [address] Branch ketoconazol 2021-10 Yes Apply [facility] e 2 % 2-08 twice ity of shampoo 00:00: weekly for [facility] Branch ketoconazol 2021-10 Yes Apply [facility] e 2 % 2-08 twice ity of shampoo 00:00: weekly for [facility] ketoconazol 2021-10 Yes Apply [facility] e 2 % 2-08 twice ity of shampoo 00:00: weekly for [facility] Branch ketoconazol 2021-10 Yes Apply [facility] e 2 % 2-08 twice ity of shampoo 00:00: weekly for [facility] Branch ketoconazol 2021-10 Yes Apply [facility] e 2 % 2-08 twice ity of shampoo 00:00: weekly for [facility] Branch ketoconazol 2021-10 Yes Apply [facility] e 2 % 2-08 twice ity of shampoo 00:00: weekly for [facility] ketoconazol 2021-10 Yes Apply [facility] e 2 % 2-08 twice ity of shampoo 00:00: weekly for [facility] Branch ketoconazol 2021-10 Yes Apply [facility] e 2 % 2-08 twice ity of shampoo 00:00: weekly for [facility] ketoconazol 2021-10 Yes Apply [facility] e 2 % 2-08 twice ity of shampoo 00:00: weekly for [facility] Branch ketoconazol 2021-10 Yes Apply [facility] e 2 % 2-08 twice ity of shampoo 00:00: weekly for [facility] Branch ketoconazol 2021-10 Yes Apply [facility] e 2 % 2-08 twice ity of shampoo 00:00: weekly for [facility] carvediloL 2021-103- No [id number] 25mg Take 1 [facility] 25 mg 2-08 01-02 tablet by ity of tablet 00:00: 00:00 mouth in [place] 00 :00 the Medical morning Branch and 1 tablet in the evening. carvediloL 2021-10- No [id number] 25mg Take 1 [facility] 25 mg 11-15 tablet by ity of tablet 00:00: 00:00 mouth in [place] 00 :00 the Medical morning Branch and 1 tablet in the evening. carvediloL 2021-10- No [id number] 25mg Take 1 [facility] 25 mg 11-15 tablet by ity of tablet 00:00: 00:00 mouth in [place] 00 :00 the Medical morning Branch and 1 tablet in the evening. econazole 2021-10- No [id number] Apply to [facility] nitrate 1 % 11-15 area(s) ity of cream 00:00: 05:59 daily for [place] 00 :00 14 days. Medical Branch econazole 2021-10- No [id number] Apply to [facility] nitrate 1 % 11-15 area(s) ity of cream 00:00: 05:59 daily for [place] 00 :00 14 days. Medical Branch econazole 2021-10- No [id number] Apply to [facility] nitrate 1 % 11-15 area(s) ity of cream 00:00: 05:59 daily for [place] 00 :00 14 days. Medical Branch econazole 2021-10- No [id number] Apply to [facility] nitrate 1 % 11-15 area(s) ity of cream 00:00: 05:59 daily for [place] 00 :00 14 days. Medical Branch econazole 2021-102- No [id number] Apply to [facility] nitrate 1 % 11-15 area(s) ity of cream 00:00: 05:59 daily for [place] 00 :00 14 days. Medical Branch econazole 2021-10- No [id number] Apply to [facility] nitrate 1 % 11-15 area(s) ity of cream 00:00: 05:59 daily for [place] 00 :00 14 days. Medical Branch econazole 2021-102- No [id number] Apply to [facility] nitrate 1 % 11-15 area(s) ity of cream 00:00: 05:59 daily for [place] 00 :00 14 days. Medical Branch DULoxetine 2021-10 Yes [id number] 30mg Take 1 [facility] 30 mg 2-06 capsule by ity of capsule 00:00: mouth in [place] [address] the Medical morning Branch and 1 capsule in the evening. DULoxetine 2021-10 Yes [id number] 30mg Take 1 [facility] 30 mg 2-06 capsule by ity of capsule 00:00: mouth in [place] [address] the Medical morning Branch and 1 capsule in the evening. DULoxetine 2021-10 Yes [id number] 30mg Take 1 [facility] 30 mg 2-06 capsule by ity of capsule 00:00: mouth in [place] [address] the Medical morning Branch and 1 capsule in the evening. DULoxetine 2021-10 Yes [id number] 30mg Take 1 [facility] 30 mg 2-06 capsule by ity of capsule 00:00: mouth in [place] [address] the Medical morning [place] and 1 capsule in the evening. DULoxetine 2021-10 Yes [id number] 30mg Take 1 [facility] 30 mg 2-06 capsule by ity of capsule 00:00: mouth in [address] morning [place] and 1 capsule in the evening. DULoxetine 2021-10 Yes [id number] 30mg Take 1 [facility] 30 mg 2-06 capsule by ity of capsule 00:00: mouth in [address] Medical morning [place] and 1 capsule in the evening. DULoxetine 2021-10 Yes [id number] 30mg Take 1 [facility] 30 mg 2-06 capsule by ity of capsule 00:00: mouth in [place] [address] [facility] morning [place] and 1 capsule in the evening. DULoxetine 2021-10 Yes [id number] 30mg Take 1 [facility] 30 mg 2-06 capsule by ity of capsule 00:00: mouth in [address] Medical morning [place] and 1 capsule in the evening. DULoxetine 2021-10 Yes [id number] 30mg Take 1 [facility] 30 mg 2-06 capsule by ity of capsule 00:00: mouth in [address] Medical morning [place] and 1 capsule in the evening. DULoxetine 2021-10 Yes [id number] 30mg Take 1 [facility] 30 mg 2-06 capsule by ity of capsule 00:00: mouth in [address] morning [place] and 1 capsule in the evening. DULoxetine 2021-10 Yes [id number] 30mg Take 1 [facility] 30 mg 2-06 capsule by ity of capsule 00:00: mouth in [address] morning [place] and 1 capsule in the evening. DULoxetine 2021-10 Yes [id number] 30mg Take 1 [facility] 30 mg 2-06 capsule by ity of capsule 00:00: mouth in [place] [address] the Medical morning [place] and 1 capsule in the evening. DULoxetine 2021-10 Yes [id number] 30mg Take 1 [facility] 30 mg 2-06 capsule by ity of capsule 00:00: mouth in [place] [address] the Medical morning [place] and 1 capsule in the evening. DULoxetine 2021-10 Yes [id number] 30mg Take 1 [facility] 30 mg 2-06 capsule by ity of capsule 00:00: mouth in [place] [address] the Medical morning [place] and 1 capsule in the evening. DULoxetine 2021-10 Yes [id number] 30mg Take 1 [facility] 30 mg 2-06 capsule by ity of capsule 00:00: mouth in [address] morning [place] and 1 capsule in the evening. DULoxetine 2021-10 Yes [id number] 30mg Take 1 [facility] 30 mg 2-06 capsule by ity of capsule 00:00: mouth in [address] morning [place] and 1 capsule in the evening. DULoxetine 2021-10 Yes [id number] 30mg Take 1 [facility] 30 mg 2-06 capsule by ity of capsule 00:00: mouth in [address] morning [place] and 1 capsule in the evening. DULoxetine 2021-10 Yes [id number] 30mg Take 1 [facility] 30 mg 2-06 capsule by ity of capsule 00:00: mouth in [address] morning [place] and 1 capsule in the evening. DULoxetine 2021-10 Yes [id number] 30mg Take 1 [facility] 30 mg 2-06 capsule by ity of capsule 00:00: mouth in [address] Medical morning [place] and 1 capsule in the evening. DULoxetine 2021-10 Yes [id number] 30mg Take 1 [facility] 30 mg 2-06 capsule by ity of capsule 00:00: mouth in [address] morning [place] and 1 capsule in the evening. DULoxetine 2021-10 Yes [id number] 30mg Take 1 [facility] 30 mg 2-06 capsule by ity of capsule 00:00: mouth in [address] morning [place] and 1 capsule in the evening. DULoxetine 2021-10 Yes [id number] 30mg Take 1 [facility] 30 mg 2-06 capsule by ity of capsule 00:00: mouth in [place] 00 the Medical morning Branch and 1 capsule in the evening. DULoxetine 2021-10 Yes [id number] 30mg Take 1 [facility] 30 mg 2-06 capsule by ity of capsule 00:00: mouth in [place] [address] the Medical morning Branch and 1 capsule in the evening. DULoxetine 2021-10 Yes [id number] 30mg Take 1 [facility] 30 mg 2-06 capsule by ity of capsule 00:00: mouth in [place] [address] the Medical morning Branch and 1 capsule in the evening. DULoxetine 2021-10 Yes [id number] 30mg Take 1 [facility] 30 mg 2-06 capsule by ity of capsule 00:00: mouth in [place] [address] the Medical morning Branch and 1 capsule in the evening. DULoxetine 2021-10 Yes [id number] 30mg Take 1 [facility] 30 mg 2-06 capsule by ity of capsule 00:00: mouth in [place] [address] the Medical morning Branch and 1 capsule in the evening. DULoxetine 2021-10 Yes [id number] 30mg Take 1 [facility] 30 mg 2-06 capsule by ity of capsule 00:00: mouth in [place] [address] the Medical morning Branch and 1 capsule in the evening. DULoxetine 2021-10 Yes [id number] 30mg Take 1 [facility] 30 mg 2-06 capsule by ity of capsule 00:00: mouth in [place] [address] the Medical morning [place] and 1 capsule in the evening. DULoxetine 2021-10 Yes [id number] 30mg Take 1 [facility] 30 mg 2-06 capsule by ity of capsule 00:00: mouth in [place] [address] [facility] morning [place] and 1 capsule in the evening. DULoxetine 2021-10 Yes [id number] 30mg Take 1 [facility] 30 mg 2-06 capsule by ity of capsule 00:00: mouth in [place] [address] the Medical morning Branch and 1 capsule in the evening. DULoxetine 2021-10 Yes [id number] 30mg Take 1 [facility] 30 mg 2-06 capsule by ity of capsule 00:00: mouth in [place] [address] the Medical morning Branch and 1 capsule in the evening. DULoxetine 2021-10 Yes [id number] 30mg Take 1 [facility] 30 mg 2-06 capsule by ity of capsule 00:00: mouth in [place] [address] the Medical morning [place] and 1 capsule in the evening. DULoxetine 2021-10 Yes [id number] 30mg Take 1 [facility] 30 mg 2-06 capsule by ity of capsule 00:00: mouth in [address] morning [place] and 1 capsule in the evening. DULoxetine 2021-10 Yes [id number] 30mg Take 1 [facility] 30 mg 2-06 capsule by ity of capsule 00:00: mouth in [address] morning [place] and 1 capsule in the evening. DULoxetine 2021-10 Yes [id number] 30mg Take 1 [facility] 30 mg 2-06 capsule by ity of capsule 00:00: mouth in [place] [address] [address] [facility] morning [place] and 1 capsule in the evening. DULoxetine 2021-10 Yes [id number] 30mg Take 1 [facility] 30 mg 2-06 capsule by ity of capsule 00:00: mouth in [place] [address] [facility] morning [place] and 1 capsule in the evening. DULoxetine 2021-10 Yes [id number] 30mg Take 1 [facility] 30 mg 2-06 capsule by ity of capsule 00:00: mouth in [address] and 1 capsule in the evening. HUMULIN R 2021-10 Yes [id number] INJECT 90 [facility] U-500, 1-30 UNITS ity of CONC, 00:00[facility] WITH Med ical unit/mL (3 BREAKFAST Bran ch mL) InPn AND 100 UNITS WITH LUNCH AND 100 UNITS WITH DINNER HUMULIN R 2021-10 Yes [id number] INJECT 90 [facility] U-500, 1-30 UNITS ity of CONC, 00:00: [facility] KWIKPEN 500 00 USLY WITH Med ical unit/mL (3 BREAKFAST Bran ch mL) InPn AND 100 UNITS WITH LUNCH AND 100 UNITS WITH DINNER HUMULIN R 2021-10 Yes [id number] INJECT 90 Univers U-500, 1-30 UNITS ity of CONC, 00:00[facility] [place] KWIKPEN 500 00 USLY WITH Med ical unit/mL (3 BREAKFAST Bran ch mL) InPn AND 100 UNITS WITH LUNCH AND 100 UNITS WITH DINNER HUMULIN R 2021-10 Yes [id number] INJECT 90 [facility] U-500, 1-30 UNITS ity of CONC, 00:00: [facility] KWIKPEN 500 00 USLY WITH Med ical unit/mL (3 BREAKFAST Bran ch mL) InPn AND 100 UNITS WITH LUNCH AND 100 UNITS WITH DINNER HUMULIN R 2021-10 Yes [id number] INJECT 90 [facility] U-500, 1-30 UNITS ity of CONC, 00:00: SUBCUTANEO [place] KWIKPEN 500 00 USLY WITH Med ical unit/mL (3 BREAKFAST Bran ch mL) InPn AND 100 UNITS WITH LUNCH AND 100 UNITS WITH DINNER HUMULIN R 2021-10 Yes [id number] INJECT 90 Univers U-500, 1-30 UNITS ity of CONC, 00:00: SUBCUTANEO [place] KWIKPEN 500 00 USLY WITH Med ical unit/mL (3 BREAKFAST Bran ch mL) InPn AND 100 UNITS WITH LUNCH AND 100 UNITS WITH DINNER HUMULIN R 2021-10 Yes [id number] INJECT 90 Univers U-500, 1-30 UNITS ity of CONC, 00:00: SUBCUTANEO [place] KWIKPEN 500 00 USLY WITH Med ical unit/mL (3 BREAKFAST Bran ch mL) InPn AND 100 UNITS WITH LUNCH AND 100 UNITS WITH DINNER HUMULIN R 2021-10 Yes [id number] INJECT 90 [facility] U-500, 1-30 UNITS ity of CONC, 00:00: SUBCUTANEO [place] KWIKPEN 500 00 USLY WITH Med ical unit/mL (3 BREAKFAST Bran ch mL) InPn AND 100 UNITS WITH LUNCH AND 100 UNITS WITH DINNER HUMULIN R 2021-10 Yes [id number] INJECT 90 [facility] U-500, 1-30 UNITS ity of CONC, 00:00: SUBCUTANEO [place] KWIKPEN 500 00 USLY WITH Med ical unit/mL (3 BREAKFAST Bran ch mL) InPn AND 100 UNITS WITH LUNCH AND 100 UNITS WITH DINNER HUMULIN R 2021-10 Yes [id number] INJECT 90 [facility] U-500, 1-30 UNITS ity of CONC, 00:00: SUBCUTANEO [place] KWIKPEN 500 00 USLY WITH Med ical unit/mL (3 BREAKFAST Bran ch mL) InPn AND 100 UNITS WITH LUNCH AND 100 UNITS WITH DINNER HUMULIN R 2021-10 Yes [id number] INJECT 90 [facility] U-500, 1-30 UNITS ity of CONC, 00:00: SUBCUTANEO [place] KWIKPEN 500 00 USLY WITH Med ical unit/mL (3 BREAKFAST Bran ch mL) InPn AND 100 UNITS WITH LUNCH AND 100 UNITS WITH DINNER HUMULIN R 2021-10 Yes [id number] INJECT 90 [facility] U-500, 1-30 UNITS ity of CONC, 00:00: SUBCUTANEO [place] KWIKPEN 500 00 USLY WITH Med ical unit/mL (3 BREAKFAST Bran ch mL) InPn AND 100 UNITS WITH LUNCH AND 100 UNITS WITH DINNER HUMULIN R 2021-10 Yes [id number] INJECT 90 [facility] U-500, 1-30 UNITS ity of CONC, 00:00: SUBCUTANEO [place] KWIKPEN 500 00 USLY WITH Med ical unit/mL (3 BREAKFAST Bran ch mL) InPn AND 100 UNITS WITH LUNCH AND 100 UNITS WITH DINNER HUMULIN R 2021-10 Yes [id number] INJECT 90 [facility] U-500, 1-30 UNITS ity of CONC, 00:00: SUBCUTANEO [place] KWIKPEN 500 00 USLY WITH Med ical unit/mL (3 BREAKFAST Bran ch mL) InPn AND 100 UNITS WITH LUNCH AND 100 UNITS WITH DINNER HUMULIN R 2021-10 Yes [id number] INJECT 90 [facility] U-500, 1-30 UNITS ity of CONC, 00:00: SUBCUTANEO [place] KWIKPEN 500 00 USLY WITH Med ical unit/mL (3 BREAKFAST Bran ch mL) InPn AND 100 UNITS WITH LUNCH AND 100 UNITS WITH DINNER HUMULIN R 2021-10 Yes [id number] INJECT 90 [facility] U-500, 1-30 UNITS ity of CONC, 00:00: SUBCUTANEO [place] KWIKPEN 500 00 USLY WITH Med ical unit/mL (3 BREAKFAST Bran ch mL) InPn AND 100 UNITS WITH LUNCH AND 100 UNITS WITH DINNER HUMULIN R 2021-10 Yes [id number] INJECT 90 [facility] U-500, 1-30 UNITS ity of CONC, 00:00: SUBCUTANEO [place] KWIKPEN 500 00 USLY WITH Med ical unit/mL (3 BREAKFAST Bran ch mL) InPn AND 100 UNITS WITH LUNCH AND 100 UNITS WITH DINNER HUMULIN R 2021-10 Yes [id number] INJECT 90 [facility] U-500, 1-30 UNITS ity of CONC, 00:00: SUBCUTANEO [place] KWIKPEN 500 00 USLY WITH Med ical unit/mL (3 BREAKFAST Bran ch mL) InPn AND 100 UNITS WITH LUNCH AND 100 UNITS WITH DINNER HUMULIN R 2021-10 Yes [id number] INJECT 90 [facility] U-500, 1-30 UNITS ity of CONC, 00:00: SUBCUTANEO [place] KWIKPEN 500 00 USLY WITH Med ical unit/mL (3 BREAKFAST Bran ch mL) InPn AND 100 UNITS WITH LUNCH AND 100 UNITS WITH DINNER HUMULIN R 2021-10 Yes [id number] INJECT 90 [facility] U-500, 1-30 UNITS ity of CONC, 00:00: SUBCUTANEO [place] KWIKPEN 500 00 USLY WITH Med ical unit/mL (3 BREAKFAST Bran ch mL) InPn AND 100 UNITS WITH LUNCH AND 100 UNITS WITH DINNER HUMULIN R 2021-10 Yes [id number] INJECT 90 [facility] U-500, 1-30 UNITS ity of CONC, 00:00: SUBCUTANEO [place] KWIKPEN 500 00 USLY WITH Med ical unit/mL (3 BREAKFAST Bran ch mL) InPn AND 100 UNITS WITH LUNCH AND 100 UNITS WITH DINNER HUMULIN R 2021-10 Yes [id number] INJECT 90 [facility] U-500, 1-30 UNITS ity of CONC, 00:00: SUBCUTANEO [place] KWIKPEN 500 00 USLY WITH Med ical unit/mL (3 BREAKFAST Bran ch mL) InPn AND 100 UNITS WITH LUNCH AND 100 UNITS WITH DINNER HUMULIN R 2021-10 Yes [id number] INJECT 90 Univers U-500, 1-30 UNITS ity of CONC, 00:00: SUBCUTANEO [place] KWIKPEN 500 00 USLY WITH Med ical unit/mL (3 BREAKFAST Bran ch mL) InPn AND 100 UNITS WITH LUNCH AND 100 UNITS WITH DINNER HUMULIN R 2021-10 Yes [id number] INJECT 90 [facility] U-500, 1-30 UNITS ity of CONC, 00:00: SUBCUTANEO [place] KWIKPEN 500 00 USLY WITH Med ical unit/mL (3 BREAKFAST Bran ch mL) InPn AND 100 UNITS WITH LUNCH AND 100 UNITS WITH DINNER HUMULIN R 2021-10 Yes [id number] INJECT 90 [facility] U-500, 1-30 UNITS ity of CONC, 00:00: SUBCUTANEO [place] KWIKPEN 500 00 USLY WITH Med ical unit/mL (3 BREAKFAST Bran ch mL) InPn AND 100 UNITS WITH LUNCH AND 100 UNITS WITH DINNER HUMULIN R 2021-10 Yes [id number] INJECT 90 [facility] U-500, 1-30 UNITS ity of CONC, 00:00: SUBCUTANEO [place] KWIKPEN 500 00 USLY WITH Med ical unit/mL (3 BREAKFAST Bran ch mL) InPn AND 100 UNITS WITH LUNCH AND 100 UNITS WITH DINNER HUMULIN R 2021-10 Yes [id number] INJECT 90 [facility] U-500, 1-30 UNITS ity of CONC, 00:00: SUBCUTANEO [place] KWIKPEN 500 00 USLY WITH Med ical unit/mL (3 BREAKFAST Bran ch mL) InPn AND 100 UNITS WITH LUNCH AND 100 UNITS WITH DINNER HUMULIN R 2021-10 Yes [id number] INJECT 90 [facility] U-500, 1-30 UNITS ity of CONC, 00:00: SUBCUTANEO [place] KWIKPEN 500 00 USLY WITH Med ical unit/mL (3 BREAKFAST Bran ch mL) InPn AND 100 UNITS WITH LUNCH AND 100 UNITS WITH DINNER HUMULIN R 2021-10 Yes [id number] INJECT 90 [facility] U-500, 1-30 UNITS ity of CONC, 00:00: SUBCUTANEO [place] KWIKPEN 500 00 USLY WITH Med ical unit/mL (3 BREAKFAST Bran ch mL) InPn AND 100 UNITS WITH LUNCH AND 100 UNITS WITH DINNER HUMULIN R 2021-10 Yes [id number] INJECT 90 [facility] U-500, 1-30 UNITS ity of CONC, 00:00: SUBCUTANEO [place] KWIKPEN 500 00 USLY WITH Med ical unit/mL (3 BREAKFAST Bran ch mL) InPn AND 100 UNITS WITH LUNCH AND 100 UNITS WITH DINNER HUMULIN R 2021-10 Yes [id number] INJECT 90 [facility] U-500, 1-30 UNITS ity of CONC, 00:00: SUBCUTANEO [place] KWIKPEN 500 00 USLY WITH Med ical unit/mL (3 BREAKFAST Bran ch mL) InPn AND 100 UNITS WITH LUNCH AND 100 UNITS WITH DINNER HUMULIN R 2021-10 Yes [id number] INJECT 90 [facility] U-500, 1-30 UNITS ity of CONC, 00:00: SUBCUTANEO [place] KWIKPEN 500 00 USLY WITH Med ical unit/mL (3 BREAKFAST Bran ch mL) InPn AND 100 UNITS WITH LUNCH AND 100 UNITS WITH DINNER HUMULIN R 2021-10 Yes [id number] INJECT 90 [facility] U-500, 1-30 UNITS ity of CONC, 00:00: SUBCUTANEO [place] KWIKPEN 500 00 USLY WITH Med ical unit/mL (3 BREAKFAST Bran ch mL) InPn AND 100 UNITS WITH LUNCH AND 100 UNITS WITH DINNER HUMULIN R 2021-10 Yes [id number] INJECT 90 [facility] U-500, 1-30 UNITS ity of CONC, 00:00: SUBCUTANEO [place] KWIKPEN 500 00 USLY WITH Med ical unit/mL (3 BREAKFAST Bran ch mL) InPn AND 100 UNITS WITH LUNCH AND 100 UNITS WITH DINNER HUMULIN R 2021-10 Yes [id number] INJECT 90 [facility] U-500, 1-30 UNITS ity of CONC, 00:00: SUBCUTANEO [place] KWIKPEN 500 00 USLY WITH Med ical unit/mL (3 BREAKFAST Bran ch mL) InPn AND 100 UNITS WITH LUNCH AND 100 UNITS WITH DINNER HUMULIN R 2021-10 Yes [id number] INJECT 90 [facility] U-500, 1-30 UNITS ity of CONC, 00:00: SUBCUTANEO [place] KWIKPEN 500 00 USLY WITH Med ical unit/mL (3 BREAKFAST Bran ch mL) InPn AND 100 UNITS WITH LUNCH AND 100 UNITS WITH DINNER HUMULIN R 2021-10 Yes [id number] INJECT 90 [facility] U-500, 1-30 UNITS ity of CONC, 00:00: SUBCUTANEO [place] KWIKPEN 500 00 USLY WITH Med ical unit/mL (3 BREAKFAST Bran ch mL) InPn AND 100 UNITS WITH LUNCH AND 100 UNITS WITH DINNER HUMULIN R 2021-10 Yes [id number] INJECT 90 [facility] U-500, 1-30 UNITS ity of CONC, 00:00: SUBCUTANEO [place] KWIKPEN 500 00 USLY WITH Med ical unit/mL (3 BREAKFAST Bran ch mL) InPn AND 100 UNITS WITH LUNCH AND 100 UNITS WITH DINNER HUMULIN R 2021-10 Yes [id number] INJECT 90 [facility] U-500, 1-30 UNITS ity of CONC, 00:00: SUBCUTANEO [place] KWIKPEN 500 00 USLY WITH Med ical unit/mL (3 BREAKFAST Bran ch mL) InPn AND 100 UNITS WITH LUNCH AND 100 UNITS WITH DINNER HUMULIN R 2021-10 Yes [id number] INJECT 90 [facility] U-500, 1-30 UNITS ity of CONC, 00:00: SUBCUTANEO [place] KWIKPEN 500 00 USLY WITH Med ical unit/mL (3 BREAKFAST Bran ch mL) InPn AND 100 UNITS WITH LUNCH AND 100 UNITS WITH DINNER KAL, 2021-10 Yes 2{capsu Take 2 Unive rs omega-3-aci 1-28 le} capsules ity of d ethyl 00:00: by mouth [place] esters, 1 00 in the Medical gram morning Branch capsule and 2 capsules in the evening. KAL, 2021-10 Yes 2{capsu Take 2 Unive rs omega-3-aci 1-28 le} capsules ity of d ethyl 00:00: by mouth [place] esters, 1 00 in the Medical gram morning Branch capsule and 2 capsules in the evening. KAL, 2021-10 Yes 2{capsu Take 2 Unive rs omega-3-aci 1-28 le} capsules ity of d ethyl 00:00: by mouth [place] esters, 1 00 in the Medical gram morning Branch capsule and 2 capsules in the evening. KAL, 2021-10 Yes 2{capsu Take 2 Unive rs omega-3-aci 1-28 le} capsules ity of d ethyl 00:00: by mouth [place] esters, 1 00 in the Medical gram morning Branch capsule and 2 capsules in the evening. [id number] Yes 2{capsu Take 2 Unive rs omega-3-aci 1-28 le} capsules ity of d ethyl 00:00: by mouth [place] esters, 1 00 in the Medical gram morning Branch capsule and 2 capsules in the evening. KAL, 2021-10 Yes 2{capsu Take 2 Unive rs omega-3-aci 1-28 le} capsules ity of d ethyl 00:00: by mouth [place] esters, 1 00 in the Medical gram morning Branch capsule and 2 capsules in the evening. KAL, 2021-10 Yes 2{capsu Take 2 Unive rs omega-3-aci 1-28 le} capsules ity of d ethyl 00:00: by mouth [place] esters, 1 00 in the Medical gram morning Branch capsule and 2 capsules in the evening. KAL, 2021-10 Yes 2{capsu Take 2 Unive rs omega-3-aci 1-28 le} capsules ity of d ethyl 00:00: by mouth [place] esters, 1 00 in the Medical gram morning Branch capsule and 2 capsules in the evening. LOVAZA, 2021-10 Yes 2{capsu Take 2 Unive rs omega-3-aci 1-28 le} capsules ity of d ethyl 00:00: by mouth [place] esters, 1 00 in the Medical gram morning Branch capsule and 2 capsules in the evening. LOVAZA, 2021-10 Yes 2{capsu Take 2 Unive rs omega-3-aci 1-28 le} capsules ity of d ethyl 00:00: by mouth [place] esters, 1 00 in the Medical gram morning Branch capsule and 2 capsules in the evening. LOVAZA, 2021-10 Yes 2{capsu Take 2 Unive rs omega-3-aci 1-28 le} capsules ity of d ethyl 00:00: by mouth [place] esters, 1 00 in the Medical gram morning Branch capsule and 2 capsules in the evening. LOVAZA, 2021-10 Yes 2{capsu Take 2 Unive rs omega-3-aci 1-28 le} capsules ity of d ethyl 00:00: by mouth [place] esters, 1 00 in the Medical gram morning Branch capsule and 2 capsules in the evening. LOVAZ, 2021-10 Yes 2{capsu Take 2 Unive rs omega-3-aci 1-28 le} capsules ity of d ethyl 00:00: by mouth [place] esters, 1 00 in the Medical gram morning Branch capsule and 2 capsules in the evening. LOVAZA, 2021-10 Yes 2{capsu Take 2 Unive rs omega-3-aci 1-28 le} capsules ity of d ethyl 00:00: by mouth [place] esters, 1 00 in the Medical gram morning Branch capsule and 2 capsules in the evening. LOVAZA, 2021-10 Yes 2{capsu Take 2 Unive rs omega-3-aci 1-28 le} capsules ity of d ethyl 00:00: by mouth [place] esters, 1 00 in the Medical gram morning Branch capsule and 2 capsules in the evening. LOVAZA, 2021-10 Yes 2{capsu Take 2 Unive rs omega-3-aci 1-28 le} capsules ity of d ethyl 00:00: by mouth [place] esters, 1 00 in the Medical gram morning Branch capsule and 2 capsules in the evening. LOVAZA, 2021-10 Yes 2{capsu Take 2 Unive rs omega-3-aci 1-28 le} capsules ity of d ethyl 00:00: by mouth [place] esters, 1 00 in the Medical gram morning Branch capsule and 2 capsules in the evening. KAL, 2021-10 Yes 2{capsu Take 2 Unive rs omega-3-aci 1-28 le} capsules ity of d ethyl 00:00: by mouth [place] esters, 1 00 in the Medical gram morning Branch capsule and 2 capsules in the evening. KAL, 2021-10 Yes 2{capsu Take 2 Unive rs omega-3-aci 1-28 le} capsules ity of d ethyl 00:00: by mouth [place] esters, 1 00 in the Medical gram morning Branch capsule and 2 capsules in the evening. KAL, 2021-10 Yes 2g Take 2 [facility] omega-3-aci 1-28 capsules ity of d ethyl 00:00: by mouth [place] esters, 1 00 in the Medical gram morning Branch capsule and 2 capsules in the evening. KAL2021-10 Yes 2g Take 2 [facility] omega-3-aci 1-28 capsules ity of d ethyl 00:00: by mouth [place] esters, 1 00 in the Medical gram morning Branch capsule and 2 capsules in the evening. KAL2021-10 Yes 2g Take 2 [facility] omega-3-aci 1-28 capsules ity of d ethyl 00:00: by mouth [place] esters, 1 00 in the Medical gram morning Branch capsule and 2 capsules in the evening. KAL, 2021-10 Yes 2g Take 2 [facility] omega-3-aci 1-28 capsules ity of d ethyl 00:00: by mouth [place] esters, 1 00 in the Medical gram morning Branch capsule and 2 capsules in the evening. KAL, 2021-10 Yes 2g Take 2 [facility] omega-3-aci 1-28 capsules ity of d ethyl 00:00: by mouth [place] esters, 1 00 in the Medical gram morning Branch capsule and 2 capsules in the evening. insulin 2021-10 Yes [id number] INJECT 90 [facility] regular hum 1-18 UNITS ity of U-500 conc 00:00: SUBCUTANEO [place] (HUMULIN R 00 USLY WITH Medi jayne U-500, BREAKFAST Branch CONC, AND 100 KWIKPEN) UNITS WITH 500 unit/mL LUNCH AND (3 mL) InPn 100 UNITS WITH DINNER insulin 2021-10 Yes [id number] INJECT 90 [facility] regular hum 1-18 UNITS ity of U-500 conc 00:00: SUBCUTANEO [place] (HUMULIN R 00 USLY WITH Medi jayne U-500, BREAKFAST Branch CONC, AND 100 KWIKPEN) UNITS WITH 500 unit/mL LUNCH AND (3 mL) InPn 100 UNITS WITH DINNER insulin 2021-10 Yes [id number] INJECT 90 [facility] regular hum 1-18 UNITS ity of U-500 conc 00:00: SUBCUTANEO [place] (HUMULIN R 00 USLY WITH Medi jayne U-500, BREAKFAST Branch CONC, AND 100 KWIKPEN) UNITS WITH 500 unit/mL LUNCH AND (3 mL) InPn 100 UNITS WITH DINNER insulin 2021-10 Yes [id number] INJECT 90 [facility] regular hum 1-18 UNITS ity of U-500 conc 00:00: SUBCUTANEO [place] (HUMULIN R 00 USLY WITH Medi jayne U-500, BREAKFAST Branch CONC, AND 100 KWIKPEN) UNITS WITH 500 unit/mL LUNCH AND (3 mL) InPn 100 UNITS WITH DINNER insulin 2021-10 Yes [id number] INJECT 90 [facility] regular hum 1-18 UNITS ity of U-500 conc 00:00: SUBCUTANEO [place] (HUMULIN R 00 USLY WITH Medi jayne U-500, BREAKFAST Branch CONC, AND 100 KWIKPEN) UNITS WITH 500 unit/mL LUNCH AND (3 mL) InPn 100 UNITS WITH DINNER insulin 2021-10 Yes [id number] INJECT 90 [facility] regular hum 1-18 UNITS ity of U-500 conc 00:00: SUBCUTANEO [place] (HUMULIN R 00 USLY WITH Medi jayne U-500, BREAKFAST Branch CONC, AND 100 KWIKPEN) UNITS WITH 500 unit/mL LUNCH AND (3 mL) InPn 100 UNITS WITH DINNER insulin 2021-10 Yes [id number] INJECT 90 [facility] regular hum 1-18 UNITS ity of U-500 conc 00:00: SUBCUTANEO [place] (HUMULIN R 00 USLY WITH Medi jayne U-500, BREAKFAST Branch CONC, AND 100 KWIKPEN) UNITS WITH 500 unit/mL LUNCH AND (3 mL) InPn 100 UNITS WITH DINNER insulin 2021-10- No [id number] INJECT 90 [facility] regular hum 1-18 11-30 UNITS ity of U-500 conc 00:00: 00:00 [facility] [place] (HUMULIN R 00 :00 USLY WITH Medi jayne U-500, BREAKFAST Branch CONC, AND 100 KWIKPEN) UNITS WITH 500 unit/mL LUNCH AND (3 mL) InPn 100 UNITS WITH DINNER losartan 50 2021-10 Yes 50mg Take 50 mg [facility] mg tablet 0-12 by mouth ity of 00:00: every [place] 00 morning. Medical Branch losartan 50 2021-10 Yes 50mg Take 50 mg [facility] mg tablet 0-12 by mouth ity of 00:00: every [place] 00 morning. Medical Branch losartan 50 2021-10 Yes 50mg Take 50 mg [facility] mg tablet 0-12 by mouth ity of 00:00: every [place] 00 morning. Medical Branch losartan 50 2021-10 Yes 50mg Take 50 mg [facility] mg tablet 0-12 by mouth ity of 00:00: every [place] 00 morning. Medical Branch losartan 50 2021-10 Yes 50mg Take 50 mg [facility] mg tablet 0-12 by mouth ity of 00:00: every [place] 00 morning. Medical Branch losartan 50 2021-10 Yes 50mg Take 50 mg [facility] mg tablet 0-12 by mouth ity of 00:00: every [place] 00 morning. Medical Branch losartan 50 2021-10 Yes 50mg Take 50 mg [facility] mg tablet 0-12 by mouth ity of 00:00: every [place] 00 morning. Medical Branch losartan 50 2021-10 Yes 50mg Take 50 mg [facility] mg tablet 0-12 by mouth ity of 00:00: every [place] 00 morning. Medical Branch losartan 50 2021-10 Yes 50mg Take 50 mg [facility] mg tablet 0-12 by mouth ity of 00:00: every [place] 00 morning. Medical Branch losartan 50 2021-10 Yes 50mg Take 50 mg [facility] mg tablet 0-12 by mouth ity of 00:00: every [place] 00 morning. Medical Branch losartan 50 2021-10 Yes 50mg Take 50 mg [facility] mg tablet 0-12 by mouth ity of 00:00: every [place] 00 morning. Medical Branch losartan 50 2021-10 Yes 50mg Take 50 mg [facility] mg tablet 0-12 by mouth ity of 00:00: every [place] 00 morning. Medical Branch losartan 50 2021-10 Yes 50mg Take 50 mg [facility] mg tablet 0-12 by mouth ity of 00:00: every [place] 00 morning. Medical Branch losartan 50 2021-10 Yes 50mg Take 50 mg [facility] mg tablet 0-12 by mouth ity of 00:00: every [place] 00 morning. Medical Branch losartan 50 2021-10 Yes 50mg Take 50 mg [facility] mg tablet 0-12 by mouth ity of 00:00: every [place] 00 morning. Medical Branch losartan 50 2021-10 Yes 50mg Take 50 mg [facility] mg tablet 0-12 by mouth ity of 00:00: every [place] 00 morning. Medical Branch losartan 50 2021-10 Yes 50mg Take 50 mg [facility] mg tablet 0-12 by mouth ity of 00:00: every [place] 00 morning. Medical Branch losartan 50 2021-10 Yes 50mg Take 50 mg [facility] mg tablet 0-12 by mouth ity of 00:00: every [place] 00 morning. Medical Branch losartan 50 2021-10 Yes 50mg Take 50 mg [facility] mg tablet 0-12 by mouth ity of 00:00: every [place] 00 morning. Medical Branch losartan 50 2021-10 Yes 50mg Take 50 mg [facility] mg tablet 0-12 by mouth ity of 00:00: every [place] 00 morning. Medical Branch losartan 50 2021-10 Yes 50mg Take 50 mg [facility] mg tablet 0-12 by mouth ity of 00:00: every [place] 00 morning. Medical Branch losartan 50 2021-10 Yes 50mg Take 50 mg [facility] mg tablet 0-12 by mouth ity of 00:00: every [place] 00 morning. Medical Branch losartan 50 2021-10 Yes 50mg Take 50 mg [facility] mg tablet 0-12 by mouth ity of 00:00: every [place] 00 morning. Medical Branch losartan 50 2021-10 Yes 50mg Take 50 mg [facility] mg tablet 0-12 by mouth ity of 00:00: every [place] 00 morning. Medical Branch losartan 50 2021-10 Yes 50mg Take 50 mg [facility] mg tablet 0-12 by mouth ity of 00:00: every [place] 00 morning. Medical Branch losartan 50 2021-10 Yes 50mg Take 50 mg [facility] mg tablet 0-12 by mouth ity of 00:00: every [place] 00 morning. Medical Branch losartan 50 2021-10 Yes 50mg Take 50 mg [facility] mg tablet 0-12 by mouth ity of 00:00: every [place] 00 morning. Medical Branch losartan 50 2021-10 Yes 50mg Take 50 mg [facility] mg tablet 0-12 by mouth ity of 00:00: every [place] 00 morning. Medical Branch losartan 50 2021-10 Yes 50mg Take 50 mg [facility] mg tablet 0-12 by mouth ity of 00:00: every [place] 00 morning. Medical Branch losartan 50 2021-10 Yes 50mg Take 50 mg [facility] mg tablet 0-12 by mouth ity of 00:00: every [place] 00 morning. Medical Branch losartan 50 2021-10 Yes 50mg Take 50 mg [facility] mg tablet 0-12 by mouth ity of 00:00: every [place] 00 morning. Medical Branch losartan 50 2021-10 Yes 50mg Take 50 mg [facility] mg tablet 0-12 by mouth ity of 00:00: every [place] 00 morning. Medical Branch losartan 50 2021-10 Yes 50mg Take 1 Univ ers mg tablet 0-12 tablet by ity o f 00:00: mouth [place] 00 every Medical morning. Branch losartan 50 2021-10 Yes 50mg Take 1 Univ ers mg tablet 0-12 tablet by ity o f 00:00: mouth [place] 00 every Medical morning. Branch losartan 50 2021-10 Yes 50mg Take 1 Univ ers mg tablet 0-12 tablet by ity o f 00:00: mouth [place] 00 every Medical morning. Branch losartan 50 2021-10 Yes 50mg Take 1 Univ ers mg tablet 0-12 tablet by ity o f 00:00: mouth [place] 00 every Medical morning. Branch losartan 50 2021-10 Yes 50mg Take 1 Univ ers mg tablet 0-12 tablet by ity o f 00:00: mouth [place] 00 every Medical morning. Branch semaglutide 0 Yes [id number] 1mg INJECT 1 Univers (OZEMPIC) 1 9-11 MG ity of mg/dose (4 00:00: DIRECTED [place] mg/3 mL) 00 WEEKLY Medical PnIj Branch semaglutide 0 Yes [id number] 1mg INJECT 1 [facility] (OZEMPIC) 1 9-11 MG ity of mg/dose (4 00:00: DIRECTED [place] mg/3 mL) 00 WEEKLY Medical PnIj Branch semaglutide 0 Yes [id number] 1mg INJECT 1 Univers (OZEMPIC) 1 9-11 MG ity of mg/dose (4 00:00: DIRECTED [place] mg/3 mL) 00 WEEKLY [facility] semaglutide Yes [id number] 1mg INJECT 1 Univers (OZEMPIC) 1 9-11 MG ity of mg/dose (4 00:00: DIRECTED [place] mg/3 mL) 00 WEEKLY [facility] semaglutide 2021-0 Yes [id number] 1mg INJECT 1 Univers (OZEMPIC) 1 9-11 MG ity of mg/dose (4 00:00: DIRECTED [place] mg/3 mL) 00 WEEKLY [facility] semaglutide Yes [id number] 1mg INJECT 1 Univers (OZEMPIC) 1 9-11 MG ity of mg/dose (4 00:00: DIRECTED [place] mg/3 mL) 00 WEEKLY [facility] semaglutide Yes [id number] 1mg INJECT 1 Univers (OZEMPIC) 1 9-11 MG ity of mg/dose (4 00:00: DIRECTED [place] mg/3 mL) 00 WEEKLY [facility] semaglutide Yes [id number] 1mg INJECT 1 Univers (OZEMPIC) 1 9-11 MG ity of mg/dose (4 00:00: DIRECTED [place] mg/3 mL) 00 WEEKLY [facility] semaglutide Yes [id number] 1mg INJECT 1 Univers (OZEMPIC) 1 9-11 MG ity of mg/dose (4 00:00: DIRECTED [place] mg/3 mL) 00 WEEKLY [facility] semaglutide Yes [id number] 1mg INJECT 1 Univers (OZEMPIC) 1 9-11 MG ity of mg/dose (4 00:00: DIRECTED [place] mg/3 mL) 00 WEEKLY [facility] semaglutide 0 Yes [id number] 1mg INJECT 1 [facility] (OZEMPIC) 1 9-11 MG ity of mg/dose (4 00:00: DIRECTED [place] mg/3 mL) 00 WEEKLY [facility] semaglutide 0 Yes [id number] 1mg INJECT 1 Univers (OZEMPIC) 1 9-11 MG ity of mg/dose (4 00:00: DIRECTED [place] mg/3 mL) WEEKLY [facility] Branch semaglutide Yes [id number] 1mg INJECT 1 Univers (OZEMPIC) 1 9-11 MG ity of mg/dose (4 00:00: DIRECTED [place] mg/3 mL) WEEKLY Medical [facility] semaglutide Yes [id number] 1mg INJECT 1 Univers (OZEMPIC) 1 9-11 MG ity of mg/dose (4 00:00: DIRECTED [place] mg/3 mL) 00 WEEKLY Medical [facility] semaglutide Yes [id number] 1mg INJECT 1 [facility] (OZEMPIC) 1 9-11 MG ity of mg/dose (4 00:00: DIRECTED [place] mg/3 mL) 00 WEEKLY [facility] semaglutide Yes [id number] 1mg INJECT 1 [facility] (OZEMPIC) 1 9-11 MG ity of mg/dose (4 00:00: DIRECTED [place] mg/3 mL) 00 WEEKLY [facility] semaglutide Yes [id number] 1mg INJECT 1 [facility] (OZEMPIC) 1 9-11 MG ity of mg/dose (4 00:00: DIRECTED [place] mg/3 mL) 00 WEEKLY [facility] semaglutide Yes [id number] 1mg INJECT 1 [facility] (OZEMPIC) 1 9-11 MG ity of mg/dose (4 00:00: DIRECTED [place] mg/3 mL) 00 WEEKLY [facility] semaglutide Yes [id number] 1mg INJECT 1 [facility] (OZEMPIC) 1 9-11 MG ity of mg/dose (4 00:00: DIRECTED [place] mg/3 mL) WEEKLY Medical [facility] semaglutide Yes [id number] 1mg INJECT 1 [facility] (OZEMPIC) 1 9-11 MG ity of mg/dose (4 00:00: DIRECTED [place] mg/3 mL) WEEKLY [facility] semaglutide Yes [id number] 1mg INJECT 1 [facility] (OZEMPIC) 1 9-11 MG ity of mg/dose (4 00:00: DIRECTED [place] mg/3 mL) WEEKLY [facility] semaglutide Yes [id number] 1mg INJECT 1 [facility] (OZEMPIC) 1 9-11 MG ity of mg/dose (4 00:00: DIRECTED [place] mg/3 mL) 00 WEEKLY Medical [facility] semaglutide Yes [id number] 1mg INJECT 1 [facility] (OZEMPIC) 1 9-11 MG ity of mg/dose (4 00:00: DIRECTED [place] mg/3 mL) 00 WEEKLY Medical [facility] semaglutide Yes [id number] 1mg INJECT 1 [facility] (OZEMPIC) 1 9-11 MG ity of mg/dose (4 00:00: DIRECTED [place] mg/3 mL) 00 WEEKLY Medical [facility] semaglutide Yes [id number] 1mg INJECT 1 [facility] (OZEMPIC) 1 9-11 MG ity of mg/dose (4 00:00: DIRECTED [place] mg/3 mL) 00 WEEKLY [facility] semaglutide Yes [id number] 1mg INJECT 1 [facility] (OZEMPIC) 1 9-11 MG ity of mg/dose (4 00:00: DIRECTED [place] mg/3 mL) 00 WEEKLY [facility] semaglutide Yes [id number] 1mg INJECT 1 [facility] (OZEMPIC) 1 9-11 MG ity of mg/dose (4 00:00: DIRECTED [place] mg/3 mL) 00 WEEKLY [facility] semaglutide Yes [id number] 1mg INJECT 1 [facility] (OZEMPIC) 1 9-11 MG ity of mg/dose (4 00:00: DIRECTED [place] mg/3 mL) WEEKLY [facility] semaglutide Yes [id number] 1mg INJECT 1 [facility] (OZEMPIC) 1 9-11 MG ity of mg/dose (4 00:00: DIRECTED [place] mg/3 mL) WEEKLY [facility] semaglutide Yes [id number] 1mg INJECT 1 [facility] (OZEMPIC) 1 9-11 MG ity of mg/dose (4 00:00: DIRECTED [place] mg/3 mL) 00 WEEKLY [facility] semaglutide Yes [id number] 1mg INJECT 1 [facility] (OZEMPIC) 1 9-11 MG ity of mg/dose (4 00:00: DIRECTED [place] mg/3 mL) 00 WEEKLY [facility] Branch semaglutide 0 Yes [id number] 1mg INJECT 1 [facility] (OZEMPIC) 1 9-11 MG ity of mg/dose (4 00:00: DIRECTED [place] mg/3 mL) 00 WEEKLY Medical [facility] semaglutide 2021- Yes [id number] 1mg INJECT 1 [facility] (OZEMPIC) 1 9-11 MG ity of mg/dose (4 00:00: DIRECTED [place] mg/3 mL) 00 WEEKLY Medical [facility] semaglutide 2021-0 Yes [id number] 1mg INJECT 1 [facility] (OZEMPIC) 1 9-11 MG ity of mg/dose (4 00:00: DIRECTED [place] mg/3 mL) 00 WEEKLY Medical [facility] semaglutide 2021- Yes [id number] 1mg INJECT 1 [facility] (OZEMPIC) 1 9-11 MG ity of mg/dose (4 00:00: DIRECTED [place] mg/3 mL) 00 WEEKLY Medical [facility] semaglutide Yes [id number] 1mg INJECT 1 [facility] (OZEMPIC) 1 9-11 MG ity of mg/dose (4 00:00: DIRECTED [place] mg/3 mL) 00 WEEKLY Medical [facility] semaglutide Yes [id number] 1mg INJECT 1 [facility] (OZEMPIC) 1 9-11 MG ity of mg/dose (4 00:00: DIRECTED [place] mg/3 mL) 00 WEEKLY Medical [facility] semaglutide 0 Yes [id number] 1mg INJECT 1 [facility] (OZEMPIC) 1 9-11 MG ity of mg/dose (4 00:00: DIRECTED [place] mg/3 mL) 00 WEEKLY Medical [facility] semaglutide 0 Yes [id number] 1mg INJECT 1 [facility] (OZEMPIC) 1 9-11 MG ity of mg/dose (4 00:00: DIRECTED [place] mg/3 mL) 00 WEEKLY Medical [facility] semaglutide 0 Yes [id number] 1mg INJECT 1 [facility] (OZEMPIC) 1 9-11 MG ity of mg/dose (4 00:00: DIRECTED [place] mg/3 mL) 00 WEEKLY [facility] semaglutide Yes [id number] 1mg INJECT 1 [facility] (OZEMPIC) 1 9-11 MG ity of mg/dose (4 00:00: DIRECTED [place] mg/3 mL) 00 WEEKLY [facility] semaglutide Yes [id number] 1mg INJECT 1 [facility] (OZEMPIC) 1 9-11 MG ity of mg/dose (4 00:00: DIRECTED [place] mg/3 mL) 00 WEEKLY [facility] semaglutide Yes [id number] 1mg INJECT 1 [facility] (OZEMPIC) 1 9-11 MG ity of mg/dose (4 00:00: DIRECTED [place] mg/3 mL) 00 WEEKLY [facility] semaglutide Yes [id number] 1mg INJECT 1 [facility] (OZEMPIC) 1 9-11 MG ity of mg/dose (4 00:00: DIRECTED [place] mg/3 mL) 00 WEEKLY [facility] semaglutide Yes [id number] 1mg INJECT 1 [facility] (OZEMPIC) 1 9-11 MG ity of mg/dose (4 00:00: DIRECTED [place] mg/3 mL) 00 WEEKLY [facility] semaglutide Yes [id number] 1mg INJECT 1 [facility] (OZEMPIC) 1 9-11 MG ity of mg/dose (4 00:00: DIRECTED [place] mg/3 mL) 00 WEEKLY [facility] semaglutide Yes [id number] 1mg INJECT 1 [facility] (OZEMPIC) 1 9-11 MG ity of mg/dose (4 00:00: DIRECTED [place] mg/3 mL) 00 WEEKLY [facility] semaglutide Yes [id number] 1mg INJECT 1 [facility] (OZEMPIC) 1 9-11 MG ity of mg/dose (4 00:00: DIRECTED [place] mg/3 mL) 00 WEEKLY [facility] semaglutide 2022- No [id number] 1mg INJECT 1 [facility] (OZEMPIC) 1 9-11 04-05 MG ity of mg/dose (4 00:00: 00:00 DIRECTED [place] mg/3 mL) 00 :00 WEEKLY [facility] semaglutide 3- No [id number] 1mg INJECT 1 [facility] (OZEMPIC) 1 9-11 04-05 MG ity of mg/dose (4 00:00: 00:00 DIRECTED [place] mg/3 mL) 00 :00 WEEKLY [facility] semaglutide 3- No [id number] 1mg INJECT 1 [facility] (OZEMPIC) 1 9-11 04-05 MG ity of mg/dose (4 00:00: 00:00 DIRECTED [place] mg/3 mL) 00 :00 WEEKLY [facility] semaglutide 3- No [id number] 1mg INJECT 1 [facility] (OZEMPIC) 1 9-11 04-05 MG ity of mg/dose (4 00:00: 00:00 DIRECTED [place] mg/3 mL) 00 :00 WEEKLY [facility] semaglutide 2022- No [id number] 1mg INJECT 1 [facility] (OZEMPIC) 1 9-11 04-05 MG ity of mg/dose (4 00:00: 00:00 DIRECTED [place] mg/3 mL) 00 :00 WEEKLY [facility] Insulin Yes 20U inject 20 Unive rs Glargine 8-29 Units ity of (BASAGLAR 00:00: under the [place] KWIKPEN 00 skin in Medical U-100 the Branch INSULIN) morning 100 unit/mL and 20 (3 mL) Units in injection the evening. Insulin Yes 20U inject 20 Unive rs Glargine 8-29 Units ity of (BASAGLAR 00:00: under the [place] KWIKPEN 00 skin in Medical U-100 the Branch INSULIN) morning 100 unit/mL and 20 (3 mL) Units in injection the evening. Insulin Yes 20U inject 20 Unive rs Glargine 8-29 Units ity of (BASAGLAR 00:00: under the [place] KWIKPEN 00 skin in Medical U-100 the Branch INSULIN) morning 100 unit/mL and 20 (3 mL) Units in injection the evening. Insulin Yes 20U inject 20 Unive rs Glargine 8-29 Units ity of (BASAGLAR 00:00: under the [place] KWIKPEN 00 skin in Medical U-100 the Branch INSULIN) morning 100 unit/mL and 20 (3 mL) Units in injection the evening. Insulin Yes 20U inject 20 Unive rs Glargine 8-29 Units ity of (BASAGLAR 00:00: under the [place] KWIKPEN 00 skin in Medical U-100 the Branch INSULIN) morning 100 unit/mL and 20 (3 mL) Units in injection the evening. Insulin 0 Yes 20U inject 20 Unive rs Glargine 8-29 Units ity of (BASAGLAR 00:00: under the [place] KWIKPEN 00 skin in Medical U-100 the Branch INSULIN) morning 100 unit/mL and 20 (3 mL) Units in injection the evening. Insulin Yes 20U inject 20 Unive rs Glargine 8-29 Units ity of (BASAGLAR 00:00: under the [place] KWIKPEN 00 skin in Medical U-100 the Branch INSULIN) morning 100 unit/mL and 20 (3 mL) Units in injection the evening. Insulin Yes 20U inject 20 Unive rs Glargine 8-29 Units ity of (BASAGLAR 00:00: under the [place] KWIKPEN 00 skin in Medical U-100 the Branch INSULIN) morning 100 unit/mL and 20 (3 mL) Units in injection the evening. Insulin Yes 20U inject 20 Unive rs Glargine 8-29 Units ity of (BASAGLAR 00:00: under the [place] KWIKPEN 00 skin in Medical U-100 the Branch INSULIN) morning 100 unit/mL and 20 (3 mL) Units in injection the evening. Insulin Yes 20U inject 20 Unive rs Glargine 8-29 Units ity of (BASAGLAR 00:00: under the [place] KWIKPEN 00 skin in Medical U-100 the Branch INSULIN) morning 100 unit/mL and 20 (3 mL) Units in injection the evening. Insulin Yes 20U inject 20 Unive rs Glargine 8-29 Units ity of (BASAGLAR 00:00: under the [place] KWIKPEN 00 skin in Medical U-100 the Branch INSULIN) morning 100 unit/mL and 20 (3 mL) Units in injection the evening. Insulin 2021- No 20U inject 20 Univ ers Glargine 8- 11-18 Units ity of (BASAGLAR 00:00: 00:00 under the [place] KWIKPEN 00 :00 skin in Medical U-100 the Branch INSULIN) morning 100 unit/mL and 20 (3 mL) Units in injection the evening. Insulin 2021- No 20U inject 20 Univ ers Glargine 8- 11-18 Units ity of (BASAGLAR 00:00: 00:00 under the [place] KWIKPEN 00 :00 skin in Medical U-100 the Branch INSULIN) morning 100 unit/mL and 20 (3 mL) Units in injection the evening. Insulin 2021- No 20U inject 20 Univ ers Glargine 8- 11-18 Units ity of (BASAGLAR 00:00: 00:00 under the [place] KWIKPEN 00 :00 skin in Medical U-100 the Branch INSULIN) morning 100 unit/mL and 20 (3 mL) Units in injection the evening. Insulin 2021- No 20U inject 20 Univ ers Glargine 8- 11-18 Units ity of (BASAGLAR 00:00: 00:00 under the [place] KWIKPEN 00 :00 skin in Medical U-100 the Branch INSULIN) morning 100 unit/mL and 20 (3 mL) Units in injection the evening. Insulin 2021- No 20U inject 20 Univ ers Glargine 8- 11-18 Units ity of (BASAGLAR 00:00: 00:00 under the [place] KWIKPEN 00 :00 skin in Medical U-100 the Branch INSULIN) morning 100 unit/mL and 20 (3 mL) Units in injection the evening. Insulin 2021- No 20U inject 20 Univ ers Glargine 8- 11-18 Units ity of (BASAGLAR 00:00: 00:00 under the [place] KWIKPEN 00 :00 skin in Medical U-100 the Branch INSULIN) morning 100 unit/mL and 20 (3 mL) Units in injection the evening. Insulin 2021- No 20U inject 20 Univ ers Glargine 8-29 11-18 Units ity of (BASAGLAR 00:00: 00:00 under the [place] KWIKPEN 00 :00 skin in Medical U-100 the Branch INSULIN) morning 100 unit/mL and 20 (3 mL) Units in injection the evening. LANTUS Yes [id number] INJECT 20 U nivers SOLOSTAR 7-09 UNITS ity of U-100 00:00: SUBCUTANEO [place] INSULIN 100 00 USLY TWICE Me dical unit/mL (3 DAILY Branch mL) injection insulin Yes [id number] INJECT 90 [facility] regular hum 7-09 UNITS ity of U-500 conc 00:00: SUBCUTANEO [place] (HUMULIN R 00 USLY WITH Medi jayne U-500, BREAKFAST Branch CONC, AND 100 KWIKPEN) UNITS WITH 500 unit/mL LUNCH AND (3 mL) InPn 100 UNITS WITH DINNER LANTUS Yes [id number] INJECT 20 U nivers SOLOSTAR 7-09 UNITS ity of U-100 00:00: SUBCUTANEO [place] INSULIN 100 00 USLY TWICE Me dical unit/mL (3 DAILY Branch mL) injection insulin Yes [id number] INJECT 90 [facility] regular hum 7-09 UNITS ity of U-500 conc 00:00: SUBCUTANEO [place] (HUMULIN R 00 USLY WITH Medi jayne U-500, BREAKFAST Branch CONC, AND 100 KWIKPEN) UNITS WITH 500 unit/mL LUNCH AND (3 mL) InPn 100 UNITS WITH DINNER insulin Yes [id number] INJECT 90 [facility] regular hum 7-09 UNITS ity of U-500 conc 00:00: SUBCUTANEO [place] (HUMULIN R 00 USLY WITH Medi jayne U-500, BREAKFAST Branch CONC, AND 100 KWIKPEN) UNITS WITH 500 unit/mL LUNCH AND (3 mL) InPn 100 UNITS WITH DINNER insulin Yes [id number] INJECT 90 [facility] regular hum 7-09 UNITS ity of U-500 conc 00:00: SUBCUTANEO [place] (HUMULIN R 00 USLY WITH Medi jayne U-500, BREAKFAST Branch CONC, AND 100 KWIKPEN) UNITS WITH 500 unit/mL LUNCH AND (3 mL) InPn 100 UNITS WITH DINNER insulin Yes [id number] INJECT 90 [facility] regular hum 7-09 UNITS ity of U-500 conc 00:00: SUBCUTANEO [place] (HUMULIN R 00 USLY WITH Medi jayne U-500, BREAKFAST Branch CONC, AND 100 KWIKPEN) UNITS WITH 500 unit/mL LUNCH AND (3 mL) InPn 100 UNITS WITH DINNER insulin Yes [id number] INJECT 90 [facility] regular hum 7-09 UNITS ity of U-500 conc 00:00: SUBCUTANEO [place] (HUMULIN R 00 USLY WITH Medi jayne U-500, BREAKFAST Branch CONC, AND 100 KWIKPEN) UNITS WITH 500 unit/mL LUNCH AND (3 mL) InPn 100 UNITS WITH DINNER insulin Yes [id number] INJECT 90 [facility] regular hum 7-09 UNITS ity of U-500 conc 00:00: SUBCUTANEO [place] (HUMULIN R 00 USLY WITH Medi jayne U-500, BREAKFAST Branch CONC, AND 100 KWIKPEN) UNITS WITH 500 unit/mL LUNCH AND (3 mL) InPn 100 UNITS WITH DINNER insulin Yes [id number] INJECT 90 [facility] regular hum 7-09 UNITS ity of U-500 conc 00:00: SUBCUTANEO [place] (HUMULIN R 00 USLY WITH Medi jayne U-500, BREAKFAST Branch CONC, AND 100 KWIKPEN) UNITS WITH 500 unit/mL LUNCH AND (3 mL) InPn 100 UNITS WITH DINNER insulin Yes [id number] INJECT 90 [facility] regular hum 7-09 UNITS ity of U-500 conc 00:00: SUBCUTANEO [place] (HUMULIN R 00 USLY WITH Medi jayne U-500, BREAKFAST Branch CONC, AND 100 KWIKPEN) UNITS WITH 500 unit/mL LUNCH AND (3 mL) InPn 100 UNITS WITH DINNER insulin 0 Yes [id number] INJECT 90 [facility] regular hum 7-09 UNITS ity of U-500 conc 00:00: [place] (HUMULIN R 00 USLY WITH Medi jayne U-500, BREAKFAST Branch CONC, AND 100 KWIKPEN) UNITS WITH 500 unit/mL LUNCH AND (3 mL) InPn 100 UNITS WITH DINNER insulin Yes [id number] INJECT 90 [facility] regular hum 7-09 UNITS ity of U-500 conc 00:00: SUBC[place]O [place] (HUMULIN R 00 USLY WITH Medi jayne U-500, BREAKFAST Branch CONC, AND 100 KWIKPEN) UNITS WITH 500 unit/mL LUNCH AND (3 mL) InPn 100 UNITS WITH DINNER insulin Yes [id number] INJECT 90 [facility] regular hum 7-09 UNITS ity of U-500 conc 00:00: [place]BC[place] (HUMULIN R 00 USLY WITH Medi jayne U-500, BREAKFAST Branch CONC, AND 100 KWIKPEN) UNITS WITH 500 unit/mL LUNCH AND (3 mL) InPn 100 UNITS WITH DINNER insulin Yes [id number] INJECT 90 [facility] regular hum 7-09 UNITS ity of U-500 conc 00:00: SUBC[place]O [place] (HUMULIN R 00 USLY WITH Medi jayne U-500, BREAKFAST Branch CONC, AND 100 KWIKPEN) UNITS WITH 500 unit/mL LUNCH AND (3 mL) InPn 100 UNITS WITH DINNER insulin 2021- No [id number] INJECT 90 [facility] regular hum 7- 11-18 UNITS ity of U-500 conc 00:00: 00:00 SUBCUTANEO [place] (HUMULIN R 00 :00 USLY WITH Medi jayen U-500, BREAKFAST Branch CONC, AND 100 KWIKPEN) UNITS WITH 500 unit/mL LUNCH AND (3 mL) InPn 100 UNITS WITH DINNER insulin 2021- No [id number] INJECT 90 [facility] regular hum 7- 11-18 UNITS ity of U-500 conc 00:00: 00:00 SUBCUTANEO [place] (HUMULIN R 00 :00 USLY WITH Medi jayne U-500, BREAKFAST Branch CONC, AND 100 KWIKPEN) UNITS WITH 500 unit/mL LUNCH AND (3 mL) InPn 100 UNITS WITH DINNER insulin 2021- No [id number] INJECT 90 [facility] regular hum 7- 11-18 UNITS ity of U-500 conc 00:00: 00:00 SUBCUTANEO [place] (HUMULIN R 00 :00 USLY WITH Medi jayne U-500, BREAKFAST Branch CONC, AND 100 KWIKPEN) UNITS WITH 500 unit/mL LUNCH AND (3 mL) InPn 100 UNITS WITH DINNER insulin 2021- No [id number] INJECT 90 [facility] regular hum 04-15-18 UNITS ity of U-500 conc 00:00: 00:00 SUBCUTANEO [place] (HUMULIN R 00 :00 USLY WITH Medi jayne U-500, BREAKFAST Branch CONC, AND 100 KWIKPEN) UNITS WITH 500 unit/mL LUNCH AND (3 mL) InPn 100 UNITS WITH DINNER insulin 2021- No [id number] INJECT 90 [facility] regular hum 04-15-18 UNITS ity of U-500 conc 00:00: 00:00 SUBCUTANEO [place] (HUMULIN R 00 :00 USLY WITH Medi jayne U-500, BREAKFAST Branch CONC, AND 100 KWIKPEN) UNITS WITH 500 unit/mL LUNCH AND (3 mL) InPn 100 UNITS WITH DINNER insulin 2021- No [id number] INJECT 90 [facility] regular hum 04-15-18 UNITS ity of U-500 conc 00:00: 00:00 SUBCUTANEO [place] (HUMULIN R 00 :00 USLY WITH Medi jayne U-500, BREAKFAST Branch CONC, AND 100 KWIKPEN) UNITS WITH 500 unit/mL LUNCH AND (3 mL) InPn 100 UNITS WITH DINNER insulin 2021- No [id number] INJECT 90 [facility] regular hum 04-15-18 UNITS ity of U-500 conc 00:00: 00:00 SUBCUTANEO [place] (HUMULIN R 00 :00 USLY WITH Medi jayne U-500, BREAKFAST Branch CONC, AND 100 KWIKPEN) UNITS WITH 500 unit/mL LUNCH AND (3 mL) InPn 100 UNITS WITH DINNER LANTUS 2021- No [id number] INJECT 20 [facility] SOLOSTAR 04-15 08-29 UNITS ity of U-100 00:00: 00:00 [facility] INSULIN 100 00 :00 USLY TWICE Me dical unit/mL (3 DAILY Branch mL) injection DULoxetine Yes [id number] 30mg Take 1 [facility] 30 mg 6-22 capsule by ity of capsule 00:00: mouth 2 (two) Medical times Branch daily. DULoxetine Yes [id number] 30mg Take 1 [facility] 30 mg 6-22 capsule by ity of capsule 00:00: mouth 2 (two) Medical times Branch daily. DULoxetine 2022-0 Yes [id number] 30mg Take 1 [facility] 30 mg 6-22 capsule by ity of capsule 00:00: mouth [place] Medical times Branch daily. DULoxetine 2022-0 Yes [id number] 30mg Take 1 [facility] 30 mg 6-22 capsule by ity of capsule 00:00: mouth [place] (two) Medical times Branch daily. DULoxetine 2022-0 Yes [id number] 30mg Take 1 [facility] 30 mg 6-22 capsule by ity of capsule 00:00: mouth [place] (two) Medical times Branch daily. DULoxetine 2-0 Yes [id number] 30mg Take 1 [facility] 30 mg 6-22 capsule by ity of capsule 00:00: mouth [place] (two) Medical times Branch daily. DULoxetine 2-0 Yes [id number] 30mg Take 1 [facility] 30 mg 6-22 capsule by ity of capsule 00:00: mouth [place] Medical times Branch daily. DULoxetine 2-0 Yes [id number] 30mg Take 1 [facility] 30 mg 6-22 capsule by ity of capsule 00:00: mouth [place] Medical times Branch daily. DULoxetine 2-0 Yes [id number] 30mg Take 1 [facility] 30 mg 6-22 capsule by ity of capsule 00:00: mouth [place] (two) Medical times Branch daily. DULoxetine 2-0 Yes [id number] 30mg Take 1 [facility] 30 mg 6-22 capsule by ity of capsule 00:00: mouth [place] (two) Medical times Branch daily. DULoxetine 2-0 Yes [id number] 30mg Take 1 [facility] 30 mg 6-22 capsule by ity of capsule 00:00: mouth [place] Medical times Branch daily. DULoxetine 2022-0 Yes [id number] 30mg Take 1 [facility] 30 mg 6-22 capsule by ity of capsule 00:00: mouth [place] (two) Medical times Branch daily. DULoxetine 2022-0 Yes [id number] 30mg Take 1 [facility] 30 mg 6-22 capsule by ity of capsule 00:00: mouth [place] (two) Medical times Branch daily. DULoxetine 2022-0 Yes [id number] 30mg Take 1 [facility] 30 mg 6-22 capsule by ity of capsule 00:00: mouth [address] [place] [address] (two) Medical times Branch daily. DULoxetine 2022-0 Yes [id number] 30mg Take 1 [facility] 30 mg 6-22 capsule by ity of capsule 00:00: mouth [address] [place] [address] (two) Medical times Branch daily. DULoxetine 2022-0 Yes [id number] 30mg Take 1 [facility] 30 mg 6-22 capsule by ity of capsule 00:00: mouth [address] [place] [address] 00 (two) Medical times Branch daily. DULoxetine 2022-0 Yes [id number] 30mg Take 1 [facility] 30 mg 6-22 capsule by ity of capsule 00:00: mouth [address] [place] [address] (two) Medical times Branch daily. DULoxetine 2022-0 Yes [id number] 30mg Take 1 [facility] 30 mg 6-22 capsule by ity of capsule 00:00: mouth [address] [place] [address] (two) Medical times Branch daily. DULoxetine 2-0 Yes [id number] 30mg Take 1 [facility] 30 mg 6-22 capsule by ity of capsule 00:00: mouth [address] [place] [address] (two) Medical times Branch daily. DULoxetine 2-0 Yes [id number] 30mg Take 1 [facility] 30 mg 6-22 capsule by ity of capsule 00:00: mouth [address] [place] [address] (two) Medical times Branch daily. DULoxetine 2-0 Yes [id number] 30mg Take 1 [facility] 30 mg 6-22 capsule by ity of capsule 00:00: mouth [address] [place] [address] (two) Medical times Branch daily. DULoxetine 2022-0 2022- No [id number] 30mg Take 1 [facility] 30 mg 6-22 12-06 capsule by ity of capsule 00:00: 00:[address] [place] [address] 00 :00 (two) Medical times Branch daily. DULoxetine 2022-0 2022- No [id number] 30mg Take 1 [facility] 30 mg 6-22 12-06 capsule by ity of capsule 00:00: 00:[address] [place] [address] 00 :00 (two) Medical times Branch daily. DULoxetine 2022-0 2022- No [id number] 30mg Take 1 [facility] 30 mg 6-22 12-06 capsule by ity of capsule 00:00: 00:00 mouth 2 [place] 00 :00 (two) Medical times Branch daily. DULoxetine 2022-0 2022- No [id number] 30mg Take 1 [facility] 30 mg 6-22 12-06 capsule by ity of capsule 00:00: 00:00 mouth 2 [place] 00 :00 (two) Medical times Branch daily. CARVEDILOL 2021-0 Yes TAKE 1 Unive rs 25 mg 6-13 TABLET BY ity of tablet 00:00: MOUTH TWICE Medical DAILY Branch CARVEDILOL 2021-0 Yes TAKE 1 Unive rs 25 mg 6-13 TABLET BY ity of tablet 00:00: TWICE Medical DAILY Branch CARVEDILOL 2021-0 Yes TAKE 1 Unive rs 25 mg 6-13 TABLET BY ity of tablet 00:00: MOUTH TWICE Medical DAILY Branch CARVEDILOL 2021-0 Yes TAKE 1 Unive rs 25 mg 6-13 TABLET BY ity of tablet 00:00: [facility] TWICE Medical DAILY Branch CARVEDILOL 2021-0 Yes TAKE 1 Unive rs 25 mg 6-13 TABLET BY ity of tablet 00:00: TWICE Medical DAILY Branch CARVEDILOL 2021-0 Yes TAKE 1 Unive rs 25 mg 6-13 TABLET BY ity of tablet 00:00: MOUTH TWICE Medical DAILY Branch CARVEDILOL 2021-0 Yes TAKE 1 Unive rs 25 mg 6-13 TABLET BY ity of tablet 00:00: TWICE Medical DAILY Branch CARVEDILOL 2021-0 Yes TAKE 1 Unive rs 25 mg 6-13 TABLET BY ity of tablet 00:00: [facility] TWICE Medical DAILY Branch CARVEDILOL 2021-0 Yes TAKE 1 Unive rs 25 mg 6-13 TABLET BY ity of tablet 00:00: [facility] TWICE Medical DAILY Branch CARVEDILOL 2021-0 Yes TAKE 1 Unive rs 25 mg 6-13 TABLET BY ity of tablet 00:00: MOUTH TWICE Medical DAILY Branch CARVEDILOL 2021-0 Yes TAKE 1 Unive rs 25 mg 6-13 TABLET BY ity of tablet 00:00: TWICE Medical DAILY Branch CARVEDILOL 2021-0 Yes TAKE 1 Unive rs 25 mg 6-13 TABLET BY ity of tablet 00:00: TWICE Medical DAILY Branch CARVEDILOL 2021-0 Yes TAKE 1 Unive rs 25 mg 6-13 TABLET BY ity of tablet 00:00: MOUTH TWICE Medical DAILY Branch CARVEDILOL 0 Yes TAKE 1 Unive rs 25 mg 6-13 TABLET BY ity of tablet 00:00: MOUTH TWICE Medical DAILY Branch CARVEDILOL 0 Yes TAKE 1 Unive rs 25 mg 6-13 TABLET BY ity of tablet 00:00: TWICE Medical DAILY Branch CARVEDILOL 0 Yes TAKE 1 Unive rs 25 mg 6-13 TABLET BY ity of tablet 00:00: TWICE Medical DAILY Branch CARVEDILOL 0 Yes TAKE 1 Unive rs 25 mg 6-13 TABLET BY ity of tablet 00:00: TWICE Medical DAILY Branch CARVEDILOL 0 Yes TAKE 1 Unive rs 25 mg 6-13 TABLET BY ity of tablet 00:00: TWICE Medical DAILY Branch CARVEDILOL 0 Yes TAKE 1 Unive rs 25 mg 6-13 TABLET BY ity of tablet 00:00: TWICE Medical DAILY Branch CARVEDILOL 0 Yes TAKE 1 Unive rs 25 mg 6-13 TABLET BY ity of tablet 00:00: TWICE Medical DAILY Branch CARVEDILOL 0 Yes TAKE 1 Unive rs 25 mg 6-13 TABLET BY ity of tablet 00:00: TWICE Medical DAILY Branch CARVEDILOL 2021-0 Yes TAKE 1 Unive rs 25 mg 6-13 TABLET BY ity of tablet 00:00: TWICE Medical DAILY Branch CARVEDILOL 2021-0 Yes TAKE 1 Unive rs 25 mg 6-13 TABLET BY ity of tablet 00:00: [facility] TWICE Medical DAILY Branch CARVEDILOL 2021-0 2021- No TAKE 1 Univ ers 25 mg 6-13 12-08 TABLET BY ity of tablet 00:00: 00:00 [facility] [place] 00 :00 TWICE Medical DAILY Branch CARVEDILOL 2021-0 2021- No TAKE 1 Univ ers 25 mg 6-13 12-08 TABLET BY ity of tablet 00:00: 00:00 [facility] [place] 00 :00 TWICE Medical DAILY Branch CARVEDILOL 2021-0 2021- No TAKE 1 Univ ers 25 mg 6-13 12-08 TABLET BY ity of tablet 00:00: 00:00 [facility] 00 :00 TWICE Medical DAILY Branch CARVEDILOL 2021- No TAKE 1 Univ ers 25 mg 6- 12-08 TABLET BY ity of tablet 00:00: 00:00 MOUTH [place] 00 :00 TWICE Medical DAILY Branch CARVEDILOL 2021- No TAKE 1 Univ ers 25 mg - 12-08 TABLET BY ity of tablet 00:00: 00:00 MOUTH [place] 00 :00 TWICE Medical DAILY Branch semaglutide 0 Yes [id number] 1mg Inject 1 [facility] (OZEMPIC) 1 5-27 mg as ity of mg/dose (4 00:00: directed [place] as mg/3 mL) 00 weekly. Medical PnIj Branch levothyroxi 0 Yes [id number] 50ug Take 1 [facility] ne 50 mcg 5-27 tablet by ity o f tablet 00:00: mouth [place] 00 every Medical morning. Branch Blood-Gluco 2021-0 Yes [id number] Use 4 [facility] se Meter 5-27 times ity of (CONTOUR 00:00: daily. [place] NEXT 00 E11.65 Medical GLUCOSE Branch METER) Kit semaglutide Yes [id number] 1mg Inject 1 [facility] (OZEMPIC) 1 5-27 mg as ity of mg/dose (4 00:00: directed [place] mg/3 mL) 00 weekly. [facility] Branch levothyroxi 2021-0 Yes [id number] 50ug Take 1 [facility] ne 50 mcg 5-27 tablet by ity o f tablet 00:00: mouth [place] 00 every Medical morning. Branch Blood-Gluco 2021-0 Yes [id number] Use 4 [facility] se Meter 5-27 times ity of (CONTOUR 00:00: daily. [place] NEXT 00 E11.65 Medical GLUCOSE Branch METER) Kit semaglutide Yes [id number] 1mg Inject 1 [facility] (OZEMPIC) 1 5-27 mg as ity of mg/dose (4 00:00: directed [place] mg/3 mL) 00 weekly. [facility] Branch levothyroxi 2021-0 Yes [id number] 50ug Take 1 [facility] ne 50 mcg 5-27 tablet by ity o f tablet 00:00: mouth [place] 00 every Medical morning. Branch Blood-Gluco 2021-0 Yes [id number] Use 4 [facility] se Meter 5-27 times ity of (CONTOUR 00:00: daily. [place] E11.65 Medical GLUCOSE Branch METER) Kit semaglutide 2021-0 Yes [id number] 1mg Inject 1 [facility] (OZEMPIC) 1 5-27 mg as ity of mg/dose (4 00:00: directed [place] mg/3 mL) 00 weekly. Medical PnIj Branch levothyroxi 2-0 Yes [id number] 50ug Take 1 [facility] ne 50 mcg 5-27 tablet by ity o f tablet 00:00: mouth [place] 00 every Medical morning. Branch Blood-Gluco 2-0 Yes [id number] Use 4 [facility] se Meter 5-27 times ity of (CONTOUR 00:00: daily. [place] E11.65 Medical GLUCOSE Branch METER) Kit levothyroxi 2021-0 Yes [id number] 50ug Take 1 [facility] ne 50 mcg 5-27 tablet by ity o f tablet 00:00: mouth [place] 00 every Medical morning. Branch Blood-Gluco 2021-0 Yes [id number] Use 4 [facility] se Meter 5-27 times ity of (CONTOUR 00:00: daily. [place] E11.65 Medical GLUCOSE Branch METER) Kit levothyroxi 2021-0 Yes [id number] 50ug Take 1 [facility] ne 50 mcg 5-27 tablet by ity o f tablet 00:00: mouth [place] 00 every Medical morning. Branch Blood-Gluco 2021-0 Yes [id number] Use 4 [facility] se Meter 5-27 times ity of (CONTOUR 00:00: daily. [place] NEXT E11.65 Medical GLUCOSE Branch METER) Kit levothyroxi 2021-0 Yes [id number] 50ug Take 1 [facility] ne 50 mcg 5-27 tablet by ity o f tablet 00:00: mouth [place] 00 every Medical morning. Branch Blood-Gluco 2-0 Yes [id number] Use 4 [facility] se Meter 5-27 times ity of (CONTOUR 00:00: daily. [place] NEXT E11.65 Medical GLUCOSE Branch METER) Kit levothyroxi 2-0 Yes [id number] 50ug Take 1 [facility] ne 50 mcg 5-27 tablet by ity o f tablet 00:00: mouth [place] 00 every Medical morning. Branch Blood-Gluco 2-0 Yes [id number] Use 4 [facility] se Meter 5-27 times ity of (CONTOUR 00:00: daily. [place] E11.65 Medical GLUCOSE Branch METER) Kit levothyroxi 2022-0 Yes [id number] 50ug Take 1 [facility] ne 50 mcg 5-27 tablet by ity o f tablet 00:00: mouth [place] 00 every Medical morning. Branch Blood-Gluco 2-0 Yes [id number] Use 4 [facility] se Meter 5-27 times ity of (CONTOUR 00:00: daily. [place]x [place] E11.65 Medical GLUCOSE Branch METER) Kit levothyroxi 2021-0 Yes [id number] 50ug Take 1 [facility] ne 50 mcg 5-27 tablet by ity o f tablet 00:00: mouth [place] 00 every Medical morning. Branch Blood-Gluco 2-0 Yes [id number] Use 4 [facility] se Meter 5-27 times ity of (CONTOUR 00:00: daily. [place]x [place] E11.65 Medical GLUCOSE Branch METER) Kit levothyroxi 2021-0 Yes [id number] 50ug Take 1 [facility] ne 50 mcg 5-27 tablet by ity o f tablet 00:00: mouth [place] 00 every Medical morning. Branch Blood-Gluco 2-0 Yes [id number] Use 4 [facility] se Meter 5-27 times ity of (CONTOUR 00:00: daily. [place] .65 Medical GLUCOSE Branch METER) Kit levothyroxi 2021-0 Yes [id number] 50ug Take 1 [facility] ne 50 mcg 5-27 tablet by ity o f tablet 00:00: mouth [place] 00 every Medical morning. Branch Blood-Gluco 2-0 Yes [id number] Use 4 [facility] se Meter 5-27 times ity of (CONTOUR 00:00: daily. [place] NEXT E11.65 Medical GLUCOSE Branch METER) Kit levothyroxi 2-0 Yes [id number] 50ug Take 1 [facility] ne 50 mcg 5-27 tablet by ity o f tablet 00:00: mouth [place] 00 every Medical morning. Branch Blood-Gluco 2022-0 Yes [id number] Use 4 [facility] se Meter 5-27 times ity of (CONTOUR 00:00: daily. [place] E11.65 Medical GLUCOSE Branch METER) Kit levothyroxi 2-0 Yes [id number] 50ug Take 1 [facility] ne 50 mcg 5-27 tablet by ity o f tablet 00:00: mouth [place] 00 every Medical morning. Branch Blood-Gluco 2022-0 Yes [id number] Use 4 [facility] se Meter 5-27 times ity of (CONTOUR 00:00: daily. [place]x [place] E11.65 Medical GLUCOSE Branch METER) Kit levothyroxi 2-0 Yes [id number] 50ug Take 1 [facility] ne 50 mcg 5-27 tablet by ity o f tablet 00:00: mouth [place] 00 every Medical morning. Branch Blood-Gluco 2-0 Yes [id number] Use 4 [facility] se Meter 5-27 times ity of (CONTOUR 00:00: daily. [place]x [place] E11.65 Medical GLUCOSE Branch METER) Kit levothyroxi 2021-0 Yes [id number] 50ug Take 1 [facility] ne 50 mcg 5-27 tablet by ity o f tablet 00:00: mouth [place] 00 every Medical morning. Branch Blood-Gluco 2-0 Yes [id number] Use 4 [facility] se Meter 5-27 times ity of (CONTOUR 00:00: daily. [place] .65 Medical GLUCOSE Branch METER) Kit levothyroxi 2021-0 Yes [id number] 50ug Take 1 [facility] ne 50 mcg 5-27 tablet by ity o f tablet 00:00: mouth [place] 00 every Medical morning. Branch Blood-Gluco 2-0 Yes [id number] Use 4 [facility] se Meter 5-27 times ity of (CONTOUR 00:00: daily. [place]x [place] E11.65 Medical GLUCOSE Branch METER) Kit levothyroxi 2-0 Yes [id number] 50ug Take 1 [facility] ne 50 mcg 5-27 tablet by ity o f tablet 00:00: mouth [place] 00 every Medical morning. Branch Blood-Gluco 2022-0 Yes [id number] Use 4 [facility] se Meter 5-27 times ity of (CONTOUR 00:00: daily. [place]x [place] E11.65 Medical GLUCOSE Branch METER) Kit levothyroxi 2022-0 Yes [id number] 50ug Take 1 [facility] ne 50 mcg 5-27 tablet by ity o f tablet 00:00: mouth [place] 00 every Medical morning. Branch Blood-Gluco 2022-0 Yes [id number] Use 4 [facility] se Meter 5-27 times ity of (CONTOUR 00:00: daily. [place]x [place] E11.65 Medical GLUCOSE Branch METER) Kit levothyroxi 2-0 Yes [id number] 50ug Take 1 [facility] ne 50 mcg 5-27 tablet by ity o f tablet 00:00: mouth [place] 00 every Medical morning. Branch Blood-Gluco 2-0 Yes [id number] Use 4 [facility] se Meter 5-27 times ity of (CONTOUR 00:00: daily. [place]x [place] E11.65 Medical GLUCOSE Branch METER) Kit levothyroxi 2021-0 Yes [id number] 50ug Take 1 [facility] ne 50 mcg 5-27 tablet by ity o f tablet 00:00: mouth [place] 00 every Medical morning. Branch Blood-Gluco 2-0 Yes [id number] Use 4 [facility] se Meter 5-27 times ity of (CONTOUR 00:00: daily. [place] .65 Medical GLUCOSE Branch METER) Kit levothyroxi 2021-0 Yes [id number] 50ug Take 1 [facility] ne 50 mcg 5-27 tablet by ity o f tablet 00:00: mouth [place] 00 every Medical morning. Branch Blood-Gluco 2-0 Yes [id number] Use 4 [facility] se Meter 5-27 times ity of (CONTOUR 00:00: daily. [place] .65 Medical GLUCOSE Branch METER) Kit levothyroxi 2021-0 Yes [id number] 50ug Take 1 [facility] ne 50 mcg 5-27 tablet by ity o f tablet 00:00: mouth [place] 00 every Medical morning. Branch Blood-Gluco 2-0 Yes [id number] Use 4 [facility] se Meter 5-27 times ity of (CONTOUR 00:00: daily. [place] NEXT E11.65 Medical GLUCOSE Branch METER) Kit levothyroxi 2-0 Yes [id number] 50ug Take 1 [facility] ne 50 mcg 5-27 tablet by ity o f tablet 00:00: mouth [place] 00 every Medical morning. Branch Blood-Gluco 2022-0 Yes [id number] Use 4 [facility] se Meter 5-27 times ity of (CONTOUR 00:00: daily. [place]x [place] E11.65 Medical GLUCOSE Branch METER) Kit levothyroxi 2-0 Yes [id number] 50ug Take 1 [facility] ne 50 mcg 5-27 tablet by ity o f tablet 00:00: mouth [place] 00 every Medical morning. Branch Blood-Gluco 2022-0 Yes [id number] Use 4 [facility] se Meter 5-27 times ity of (CONTOUR 00:00: daily. [place] .65 Medical GLUCOSE Branch METER) Kit levothyroxi 2022-0 Yes [id number] 50ug Take 1 [facility] ne 50 mcg 5-27 tablet by ity o f tablet 00:00: mouth [place] 00 every Medical morning. Branch Blood-Gluco 2022-0 Yes [id number] Use 4 [facility] se Meter 5-27 times ity of (CONTOUR 00:00: daily. [place] .65 Medical GLUCOSE Branch METER) Kit levothyroxi 2-0 Yes [id number] 50ug Take 1 [facility] ne 50 mcg 5-27 tablet by ity o f tablet 00:00: mouth [place] 00 every Medical morning. Branch Blood-Gluco 2022-0 Yes [id number] Use 4 [facility] se Meter 5-27 times ity of (CONTOUR 00:00: daily. [place]x [place] .65 Medical GLUCOSE Branch METER) Kit levothyroxi 2-0 Yes [id number] 50ug Take 1 [facility] ne 50 mcg 5-27 tablet by ity o f tablet 00:00: mouth [place] 00 every Medical morning. Branch Blood-Gluco 2022-0 Yes [id number] Use 4 [facility] se Meter 5-27 times ity of (CONTOUR 00:00: daily. [place]x [place] .65 Medical GLUCOSE Branch METER) Kit levothyroxi 2-0 Yes [id number] 50ug Take 1 [facility] ne 50 mcg 5-27 tablet by ity o f tablet 00:00: mouth [place] 00 every Medical morning. Branch Blood-Gluco 2022-0 Yes [id number] Use 4 [facility] se Meter 5-27 times ity of (CONTOUR 00:00: daily. [place]x [place] E11.65 Medical GLUCOSE Branch METER) Kit Blood-Gluco 2022-0 Yes [id number] Use 4 [facility] se Meter 5-27 times ity of (CONTOUR 00:00: daily. [place]x [place] E11.65 Medical GLUCOSE Branch METER) Kit Blood-Gluco 2022-0 Yes [id number] Use 4 [facility] se Meter 5-27 times ity of (CONTOUR 00:00: daily. [place] NEXT E11.65 Medical GLUCOSE Branch METER) Kit Blood-Gluco 2022-0 Yes [id number] Use 4 [facility] se Meter 5-27 times ity of (CONTOUR 00:00: daily. [place] NEXT E11.65 Medical GLUCOSE Branch METER) Kit Blood-Gluco 2022-0 Yes [id number] Use 4 [facility] se Meter 5-27 times ity of (CONTOUR 00:00: daily. [place] NEXT E11.65 Medical GLUCOSE Branch METER) Kit Blood-Gluco 2022-0 Yes [id number] Use 4 [facility] se Meter 5-27 times ity of (CONTOUR 00:00: daily. [place] NEXT E11.65 Medical GLUCOSE Branch METER) Kit Blood-Gluco 2022-0 Yes [id number] Use 4 [facility] se Meter 5-27 times ity of (CONTOUR 00:00: daily. [place] NEXT E11.65 Medical GLUCOSE Branch METER) Kit Blood-Gluco 2022-0 Yes [id number] Use 4 [facility] se Meter 5-27 times ity of (CONTOUR 00:00: daily. [place] NEXT E11.65 Medical GLUCOSE Branch METER) Kit Blood-Gluco 2022-0 Yes [id number] Use 4 [facility] se Meter 5-27 times ity of (CONTOUR 00:00: daily. [place]x [place] NEXT E11.65 Medical GLUCOSE Branch METER) Kit Blood-Gluco 2022-0 Yes [id number] Use 4 [facility] se Meter 5-27 times ity of (CONTOUR 00:00: daily. [place]x [place] NEXT E11.65 Medical GLUCOSE Branch METER) Kit Blood-Gluco 2022-0 Yes [id number] Use 4 [facility] se Meter 5-27 times ity of (CONTOUR 00:00: daily. [place] NEXT E11.65 Medical GLUCOSE Branch METER) Kit Blood-Gluco 2022-0 Yes [id number] Use 4 [facility] se Meter 5-27 times ity of (CONTOUR 00:00: daily. [place] NEXT E11.65 Medical GLUCOSE Branch METER) Kit Blood-Gluco 2022-0 Yes [id number] Use 4 [facility] se Meter 5-27 times ity of (CONTOUR 00:00: daily. [place] NEXT 65 Medical GLUCOSE Branch METER) Kit Blood-Gluco 2022-0 Yes [id number] Use 4 [facility] se Meter 5-27 times ity of (CONTOUR 00:00: daily. [place] .65 Medical GLUCOSE Branch METER) Kit Blood-Gluco 2022-0 Yes [id number] Use 4 [facility] se Meter 5-27 times ity of (CONTOUR 00:00: daily. [place] NEXT .65 Medical GLUCOSE Branch METER) Kit Blood-Gluco 2022-0 Yes [id number] Use 4 [facility] se Meter 5-27 times ity of (CONTOUR 00:00: daily. [place] NEXT .65 Medical GLUCOSE Branch METER) Kit Blood-Gluco 2022-0 Yes [id number] Use 4 [facility] se Meter 5-27 times ity of (CONTOUR 00:00: daily. [place] NEXT .65 Medical GLUCOSE Branch METER) Kit Blood-Gluco 2022-0 Yes [id number] Use 4 [facility] se Meter 5-27 times ity of (CONTOUR 00:00: daily. [place] NEXT 65 Medical GLUCOSE Branch METER) Kit Blood-Gluco 2022-0 Yes [id number] Use 4 [facility] se Meter 5-27 times ity of (CONTOUR 00:00: daily. [place] .65 Medical GLUCOSE Branch METER) Kit Blood-Gluco 2022-0 Yes [id number] Use 4 [facility] se Meter 5-27 times ity of (CONTOUR 00:00: daily. [place] NEXT .65 Medical GLUCOSE Branch METER) Kit Blood-Gluco 2022-0 Yes [id number] Use 4 [facility] se Meter 5-27 times ity of (CONTOUR 00:00: daily. [place] NEXT .65 Medical GLUCOSE Branch METER) Kit Blood-Gluco 2022-0 Yes [id number] Use 4 [facility] se Meter 5-27 times ity of (CONTOUR 00:00: daily. [place] NEXT .65 Medical GLUCOSE Branch METER) Kit Blood-Gluco 2022-0 Yes [id number] Use 4 [facility] se Meter 5-27 times ity of (CONTOUR 00:00: daily. [place]x [place] .65 Medical GLUCOSE Branch METER) Kit Blood-Gluco 2022-0 Yes [id number] Use 4 [facility] se Meter 5-27 times ity of (CONTOUR 00:00: daily. [place] .65 Medical GLUCOSE Branch METER) Kit Blood-Gluco 2022-0 Yes [id number] Use 4 [facility] se Meter 5-27 times ity of (CONTOUR 00:00: daily. [place] NEXT .65 Medical GLUCOSE Branch METER) Kit Blood-Gluco 2022-0 Yes [id number] Use 4 [facility] se Meter 5-27 times ity of (CONTOUR 00:00: daily. [place] NEXT .65 Medical GLUCOSE Branch METER) Kit Blood-Gluco 2022-0 Yes [id number] Use 4 [facility] se Meter 5-27 times it[facility] of (CONTOUR 00:00: daily. [place] N[place] [facility] METER) Kit Blood-Gluco 2022-0 Yes [id number] Use 4 [facility] Meter 5-27 times it[facility] of (CONTOUR 00:00: daily. [place] NEXT [facility] METER) Kit Blood-Gluco 2022-0 Yes [id number] Use 4 [facility] Meter 5-27 times [facility] of (CONTOUR 00:00: daily. [place] NEXT [facility] METER) Kit Blood-Gluco 2022-0 Yes [id number] Use 4 [facility] se Meter 5-27 times ity of (CONTOUR 00:00[place] .[place] [facility] GLUCOSE Branch METER) Kit Blood-Gluco 2022-0 Yes [id number] Use 4 [facility] se Meter 5-27 times ity of (CONTOUR 00:00: [place] .[place] [facility] GLUCOSE Branch METER) Kit Blood-Gluco 2022-0 Yes [id number] Use 4 [facility] se Meter 5-27 times ity of (CONTOUR 00:00: [place] .[place] GLUCOSE Branch METER) Kit levothyroxi 2021-0 2021- No [id number] 50ug Take 1 [facility] ne 50 mcg 5-27 12-23 tablet by ity of tablet 00:00: 00:00 mouth [place] 00 :00 every Medical morning. Branch levothyroxi 2021-2021- No [id number] 50ug Take 1 [facility] ne 50 mcg 5-27 12-23 tablet by ity of tablet 00:00: 00:00 mouth [place] 00 :00 every Medical morning. Branch levothyroxi 2021- No [id number] 50ug Take 1 [facility] ne 50 mcg 5-27 12-23 tablet by ity of tablet 00:00: 00:00 mouth [place] 00 :00 every Medical morning. Branch semaglutide 2021- No [id number] 1mg Inject 1 [facility] (OZEMPIC) 1 5-27 09-11 mg as ity of mg/dose (4 00:00: 00:00 directed [place] mg/3 mL) 00 :00 weekly. [facility] Yes [id number] 80mg TAKE 1 [facility] N 80 mg 4-14 TABLET BY ity of tablet 00:00: MOUTH AT [address] [facility] Yes [id number] 80mg TAKE 1 [facility] N 80 mg 4-14 TABLET BY ity of tablet 00:00: MOUTH AT [place] [facility] Yes [id number] 80mg TAKE 1 [facility] N 80 mg 4-14 TABLET BY ity of tablet 00:00: MOUTH AT [place] [facility] Yes [id number] 80mg TAKE 1 [facility] N 80 mg 4-14 TABLET BY ity of tablet 00:00: MOUTH AT [place] [facility] Yes [id number] 80mg TAKE 1 [facility] N 80 mg 4-14 TABLET BY ity of tablet 00:00: MOUTH AT [place] [facility] Yes [id number] 80mg TAKE 1 [facility] N 80 mg 4-14 TABLET BY ity of tablet 00:00: MOUTH AT [address] [facility] Yes [id number] 80mg TAKE 1 [facility] N 80 mg 4-14 TABLET BY ity of tablet 00:00: MOUTH AT [address] [facility] Yes [id number] 80mg TAKE 1 [facility] N 80 mg 4-14 TABLET BY ity of tablet 00:00: MOUTH AT [address] [facility] Yes [id number] 80mg TAKE 1 [facility] N 80 mg 4-14 TABLET BY ity of tablet 00:00: MOUTH AT [place] [facility] Yes [id number] 80mg TAKE 1 [facility] N 80 mg 4-14 TABLET BY ity of tablet 00:00: MOUTH AT [place] [facility] Yes [id number] 80mg TAKE 1 [facility] N 80 mg 4-14 TABLET BY ity of tablet 00:00: MOUTH AT [place] [facility] Yes [id number] 80mg TAKE 1 [facility] N 80 mg 4-14 TABLET BY ity of tablet 00:00: MOUTH AT [place] [facility] Yes [id number] 80mg TAKE 1 [facility] N 80 mg 4-14 TABLET BY ity of tablet 00:00: MOUTH AT [place] [facility] Yes [id number] 80mg TAKE 1 [facility] N 80 mg 4-14 TABLET BY ity of tablet 00:00: MOUTH AT [place] [facility] Yes [id number] 80mg TAKE 1 [facility] N 80 mg 4-14 TABLET BY ity of tablet 00:00: MOUTH AT [place] [facility] Yes [id number] 80mg TAKE 1 [facility] N 80 mg 4-14 TABLET BY ity of tablet 00:00: MOUTH AT [place] [facility] Yes [id number] 80mg TAKE 1 [facility] N 80 mg 4-14 TABLET BY ity of tablet 00:00: MOUTH AT [place] [facility] Yes [id number] 80mg TAKE 1 [facility] N 80 mg 4-14 TABLET BY ity of tablet 00:00: MOUTH AT [address] Yes [id number] 80mg TAKE 1 [facility] N 80 mg 4-14 TABLET BY ity of tablet 00:00: MOUTH AT [address] Yes [id number] 80mg TAKE 1 [facility] N 80 mg 4-14 TABLET BY ity of tablet 00:00: MOUTH AT [address] Yes [id number] 80mg TAKE 1 [facility] N 80 mg 4-14 TABLET BY ity of tablet 00:00: MOUTH AT [place] [facility] Yes [id number] 80mg TAKE 1 [facility] N 80 mg 4-14 TABLET BY ity of tablet 00:00: MOUTH AT [place] [facility] Yes [id number] 80mg TAKE 1 [facility] N 80 mg 4-14 TABLET BY ity of tablet 00:00: MOUTH AT [place] [facility] Yes [id number] 80mg TAKE 1 [facility] N 80 mg 4-14 TABLET BY ity of tablet 00:00: MOUTH AT [place] [facility] Yes [id number] 80mg TAKE 1 [facility] N 80 mg 4-14 TABLET BY ity of tablet 00:00: MOUTH AT [place] [facility] Yes [id number] 80mg TAKE 1 [facility] N 80 mg 4-14 TABLET BY ity of tablet 00:00: MOUTH AT [place] [facility] Yes [id number] 80mg TAKE 1 [facility] N 80 mg 4-14 TABLET BY ity of tablet 00:00: MOUTH AT [place] [facility] Yes [id number] 80mg TAKE 1 [facility] N 80 mg 4-14 TABLET BY ity of tablet 00:00: MOUTH AT [place] [facility] Yes [id number] 80mg TAKE 1 [facility] N 80 mg 4-14 TABLET BY ity of tablet 00:00: MOUTH AT [place] [facility] Yes [id number] 80mg TAKE 1 [facility] N 80 mg 4-14 TABLET BY ity of tablet 00:00: MOUTH AT [place] [facility] Yes [id number] 80mg TAKE 1 [facility] N 80 mg 4-14 TABLET BY ity of tablet 00:00: MOUTH AT [address] [facility] Yes [id number] 80mg TAKE 1 [facility] N 80 mg 4-14 TABLET BY ity of tablet 00:00: MOUTH AT [place] [facility] Yes [id number] 80mg TAKE 1 [facility] N 80 mg 4-14 TABLET BY ity of tablet 00:00: MOUTH AT [place] [facility] Yes [id number] 80mg TAKE 1 [facility] N 80 mg 4-14 TABLET BY ity of tablet 00:00: MOUTH AT [place] [facility] Yes [id number] 80mg TAKE 1 [facility] N 80 mg 4-14 TABLET BY ity of tablet 00:00: MOUTH AT [place] [facility] Yes [id number] 80mg TAKE 1 [facility] N 80 mg 4-14 TABLET BY ity of tablet 00:00: MOUTH AT [place] [facility] Yes [id number] 80mg TAKE 1 [facility] N 80 mg 4-14 TABLET BY ity of tablet 00:00: MOUTH AT [place] [facility] Yes [id number] 80mg TAKE 1 [facility] N 80 mg 4-14 TABLET BY ity of tablet 00:00: MOUTH AT [place] [facility] Yes [id number] 80mg TAKE 1 [facility] N 80 mg 4-14 TABLET BY ity of tablet 00:00: MOUTH AT [place] [facility] Yes [id number] 80mg TAKE 1 [facility] N 80 mg 4-14 TABLET BY ity of tablet 00:00: MOUTH AT [place] [facility] Yes [id number] 80mg TAKE 1 [facility] N 80 mg 4-14 TABLET BY ity of tablet 00:00: MOUTH AT [place] [facility] Yes [id number] 80mg TAKE 1 [facility] N 80 mg 4-14 TABLET BY ity of tablet 00:00: MOUTH AT [address] 2022- No [id number] 80mg TAKE 1 [facility] N 80 mg 4-14 02-15 TABLET BY ity of tablet 00:00: 00:00 MOUTH AT [place] 00 :00 [facility] isosorbide Yes [id number] 60mg Take 1 [facility] mononitrate 3-07 tablet by ity of 60 mg 24 hr 00:00: mouth 2 [place] tablet 00 (two) Medical times Branch daily. isosorbide 2022-0 Yes [id number] 60mg Take 1 [facility] mononitrate 3-07 tablet by ity of 60 mg 24 hr 00:00: mouth 2 [place] tablet 00 (two) Medical times Branch daily. isosorbide 2022-0 Yes [id number] 60mg Take 1 [facility] mononitrate 3-07 tablet by ity of 60 mg 24 hr 00:00: mouth 2 [place] tablet 00 (two) Medical times Branch daily. isosorbide 2022-0 Yes [id number] 60mg Take 1 [facility] mononitrate 3-07 tablet by ity of 60 mg 24 hr 00:00: mouth 2 [place] tablet 00 (two) Medical times Branch daily. isosorbide 2022-0 Yes [id number] 60mg Take 1 [facility] mononitrate 3-07 tablet by ity of 60 mg 24 hr 00:00: mouth 2 [place] tablet 00 (two) Medical times Branch daily. isosorbide 2022-0 Yes [id number] 60mg Take 1 [facility] mononitrate 3-07 tablet by ity of 60 mg 24 hr 00:00: mouth 2 [place] tablet 00 (two) Medical times Branch daily. isosorbide 2022-0 Yes [id number] 60mg Take 1 [facility] mononitrate 3-07 tablet by ity of 60 mg 24 hr 00:00: mouth 2 [place] tablet 00 (two) Medical times Branch daily. isosorbide 2022-0 Yes [id number] 60mg Take 1 [facility] mononitrate 3-07 tablet by ity of 60 mg 24 hr 00:00: mouth 2 [place] tablet 00 (two) Medical times Branch daily. isosorbide 2022-0 Yes [id number] 60mg Take 1 [facility] mononitrate 3-07 tablet by ity of 60 mg 24 hr 00:00: mouth 2 [place] tablet 00 (two) Medical times Branch daily. isosorbide 2022-0 Yes [id number] 60mg Take 1 [facility] mononitrate 3-07 tablet by ity of 60 mg 24 hr 00:00: mouth 2 [place] tablet 00 (two) Medical times Branch daily. isosorbide 2022-0 Yes [id number] 60mg Take 1 [facility] mononitrate 3-07 tablet by ity of 60 mg 24 hr 00:00: mouth 2 [place] tablet 00 (two) Medical times Branch daily. isosorbide 2022-0 Yes [id number] 60mg Take 1 [facility] mononitrate 3-07 tablet by ity of 60 mg 24 hr 00:00: mouth 2 [place] tablet 00 (two) Medical times Branch daily. isosorbide 2022-0 Yes [id number] 60mg Take 1 [facility] mononitrate 3-07 tablet by ity of 60 mg 24 hr 00:00: mouth [place] tablet 00 (two) Medical times Branch daily. isosorbide 2022-0 Yes [id number] 60mg Take 1 [facility] mononitrate 3-07 tablet by ity of 60 mg 24 hr 00:00: mouth 2 [place] tablet 00 (two) Medical times Branch daily. isosorbide 2022-0 Yes [id number] 60mg Take 1 [facility] mononitrate 3-07 tablet by ity of 60 mg 24 hr 00:00: mouth 2 [place] tablet 00 (two) Medical times Branch daily. isosorbide 2022-0 Yes [id number] 60mg Take 1 [facility] mononitrate 3-07 tablet by ity of 60 mg 24 hr 00:00: mouth 2 [place] tablet 00 (two) Medical times Branch daily. isosorbide 2-0 Yes [id number] 60mg Take 1 [facility] mononitrate 3-07 tablet by ity of 60 mg 24 hr 00:00: mouth 2 [place] tablet 00 (two) Medical times Branch daily. isosorbide 2022-0 Yes [id number] 60mg Take 1 [facility] mononitrate 3-07 tablet by ity of 60 mg 24 hr 00:00: mouth 2 [place] tablet 00 (two) Medical times Branch daily. isosorbide 2022-0 Yes [id number] 60mg Take 1 [facility] mononitrate 3-07 tablet by ity of 60 mg 24 hr 00:00: mouth 2 [place] tablet 00 (two) Medical times Branch daily. isosorbide 2022-0 Yes [id number] 60mg Take 1 [facility] mononitrate 3-07 tablet by ity of 60 mg 24 hr 00:00: mouth 2 [place] tablet 00 (two) Medical times Branch daily. isosorbide 2022-0 Yes [id number] 60mg Take 1 [facility] mononitrate 3-07 tablet by ity of 60 mg 24 hr 00:00: mouth 2 [place] tablet 00 (two) Medical times Branch daily. isosorbide 2022-0 Yes [id number] 60mg Take 1 [facility] mononitrate 3-07 tablet by ity of 60 mg 24 hr 00:00: mouth 2 [place] tablet 00 (two) Medical times Branch daily. isosorbide 2022-0 Yes [id number] 60mg Take 1 [facility] mononitrate 3-07 tablet by ity of 60 mg 24 hr 00:00: mouth 2 [place] tablet 00 (two) Medical times Branch daily. isosorbide 2022-0 Yes [id number] 60mg Take 1 [facility] mononitrate 3-07 tablet by ity of 60 mg 24 hr 00:00: mouth 2 [place] tablet 00 (two) Medical times Branch daily. isosorbide 2-0 Yes [id number] 60mg Take 1 [facility] mononitrate 3-07 tablet by ity of 60 mg 24 hr 00:00: mouth 2 [place] tablet 00 (two) Medical times Branch daily. isosorbide 2-0 Yes [id number] 60mg Take 1 [facility] mononitrate 3-07 tablet by ity of 60 mg 24 hr 00:00: mouth 2 [place] tablet 00 (two) Medical times Branch daily. isosorbide 2-0 Yes [id number] 60mg Take 1 [facility] mononitrate 3-07 tablet by ity of 60 mg 24 hr 00:00: mouth 2 [place] tablet 00 (two) Medical times Branch daily. isosorbide 2022-0 Yes [id number] 60mg Take 1 [facility] mononitrate 3-07 tablet by ity of 60 mg 24 hr 00:00: mouth 2 [place] tablet 00 (two) Medical times Branch daily. isosorbide 2022-0 2022- No [id number] 60mg Take 1 [facility] mononitrate 3-07 12-21 tablet by it y of 60 mg 24 hr 00:00: 00:00 mouth 2 [place] tablet 00 :00 (two) Medical times Branch daily. isosorbide 2022-0 2022- No [id number] 60mg Take 1 [facility] mononitrate 3-07 12-21 tablet by it y of 60 mg 24 hr 00:00: 00:00 mouth 2 [place] tablet 00 :00 (two) Medical times Branch daily. isosorbide No [id number] 60mg Take 1 [facility] mononitrate 12-12 tablet by it y of 60 mg 24 hr 00:00: 00:00 mouth 2 [place] tablet 00 :00 (two) Medical times Branch daily. amLODIPine No [id number] 5mg Take 1 [facility] 5 mg tablet 11-23 tablet by it y of 00:00: 00:00 mouth [place] 00 :00 daily. Medical Branch amLODIPine No [id number] 5mg Take 1 [facility] 5 mg tablet 11-23 tablet by it y of 00:00: 00:00 mouth [place] 00 :00 daily. Medical Branch LANTUS No [id number] INJECT 20 Univers SOLOSTAR 2-22 11-18 UNITS ity of U-100 00:00: 00:00 SUBCUTANEO [place] INSULIN 100 00 :00 USLY TWICE Me dical unit/mL (3 DAILY Branch mL) injection HUMULIN R No [id number] INJECT 80 [facility] U-500, 2-15 -18 UNITS ity of CONC, 00:00: 00:00 SUBCUTANEO [place] KWIKPEN 500 00 :00 USLY WITH Med ical unit/mL (3 BREAKFAST, Bra nch mL) InPn 90 UNITS WITH LUNCH AND 90 UNITS WITH DINNER. LANTUS No [id number] INJECT 20 [facility] SOLOSTAR 2-15 -18 UNITS ity of U-100 00:00: 00:00 SUBCUTANEO [place] INSULIN 100 00 :00 USLY TWICE Me dical unit/mL (3 DAILY Branch mL) injection HUMULIN R No [id number] INJECT 80 [facility] U-500, 2-15 02-18 UNITS ity of CONC, 00:00: 00:00 SUBCUTANEO [place] KWIKPEN 500 00 :00 USLY WITH Med ical unit/mL (3 BREAKFAST, Bra nch mL) InPn 90 UNITS WITH LUNCH AND 90 UNITS WITH DINNER. losartan 50 2021- No [id number] 50mg Take 1 [facility] mg tablet 10-28-20 tablet by ity of 00:00: 00:00 mouth 2 [place] 00 :00 (two) Medical times Branch daily. losartan 50 2021- No [id number] 50mg Take 1 [facility] mg tablet 10-28-20 tablet by ity of 00:00: 00:00 mouth 2 [place] 00 :00 (two) Medical times Branch daily. LEVOTHYROXI 2021- No [id number] 50ug TAKE 1 [facility] NE 50 mcg 10-24 TABLET BY ity of tablet 00:00: 00:00 MOUTH [place] 00 :00 EVERY Medical MORNING Branch LEVOTHYROXI 2021- No [id number] 50ug TAKE 1 [facility] NE 50 mcg 10-24 TABLET BY ity of tablet 00:00: 00:00 MOUTH [place] 00 :00 EVERY Medical MORNING Branch TRULICITY 2021- No [id number] INJECT 1.5 Univers 1.5 mg/0.5 1-17 02-18 MG ity of mL PnIj 00:00: 00:00 SUBCUTANEO [place] 00 :00 USLY ONCE Medical WEEKLY Branch TRULICITY 2021- No [id number] INJECT 1.5 Univers 1.5 mg/0.5 1-17 02-18 MG ity of mL PnIj 00:00: 00:00 SUBCUTANEO [place] 00 :00 USLY ONCE Medical WEEKLY Branch CARVEDILOL 2020-10- No TAKE 1 Univ ers 25 mg -16 - TABLET BY ity of tablet 00:00: 00:00 MOUTH [place] 00 :00 TWICE Medical DAILY Branch CARVEDILOL 2020-10- No TAKE 1 Univ ers 25 mg -16 -13 TABLET BY ity of tablet 00:00: 00:00 MOUTH [place] 00 :00 TWICE Medical DAILY Branch ezetimibe 2020-10 Yes [id number] 10mg Take 1 U nivers 10 mg 0-26 tablet by ity of tablet 00:00: mouth [place] 00 daily. Medical Branch nitroglycer 2020-[id number] 1 [facility] in 0.4 mg 0-26 tablet ity of sublingual 00:00: under the [place] tablet 00 tongue Medical every 5 Branch (five) minutes as needed for Chest pain. ezetimibe 2020-10 Yes [id number] 10mg Take 1 U nivers 10 mg 0-26 tablet by ity of tablet 00:00: mouth [place] 00 daily. Medical Branch nitroglycer 2020-[id number] 1 [facility] in 0.4 mg 0-26 tablet ity of sublingual 00:00: under the [place] tablet 00 tongue Medical every 5 Branch (five) minutes as needed for Chest pain. ezetimibe 2020-10 Yes [id number] 10mg Take 1 U nivers 10 mg 0-26 tablet by ity of tablet 00:00: mouth [place] 00 daily. Medical Branch nitroglycer 2020-[id number] 1 [facility] in 0.4 mg 0-26 tablet ity of sublingual 00:00: under the [place] tablet 00 tongue Medical every 5 Branch (five) minutes as needed for Chest pain. ezetimibe 2020-10 Yes [id number] 10mg Take 1 U nivers 10 mg 0-26 tablet by ity of tablet 00:00: mouth [place] 00 daily. Medical Branch nitroglycer 2020-[id number] 1 [facility] in 0.4 mg 0-26 tablet ity of sublingual 00:00: under the [place] tablet 00 tongue Medical every 5 Branch (five) minutes as needed for Chest pain. ezetimibe 2020-10 Yes [id number] 10mg Take 1 U nivers 10 mg 0-26 tablet by ity of tablet 00:00: mouth [place] 00 daily. Medical Branch nitroglycer 2020-[id number] 1 [facility] in 0.4 mg 0-26 tablet ity of sublingual 00:00: under the [place] tablet 00 tongue Medical every 5 Branch (five) minutes as needed for Chest pain. ezetimibe 2020-10 Yes [id number] 10mg Take 1 U nivers 10 mg 0-26 tablet by ity of tablet 00:00: mouth [place] 00 daily. Medical Branch nitroglycer 2020-[id number] 1 [facility] in 0.4 mg 0-26 tablet ity of sublingual 00:00: under the [place] tablet 00 tongue Medical every 5 Branch (five) minutes as needed for Chest pain. ezetimibe 2020-10 Yes [id number] 10mg Take 1 U nivers 10 mg 0-26 tablet by ity of tablet 00:00: mouth [place] 00 daily. Medical Branch nitroglycer 2020-[id number] 1 [facility] in 0.4 mg 0-26 tablet ity of sublingual 00:00: under the [place] tablet 00 tongue Medical every 5 Branch (five) minutes as needed for Chest pain. ezetimibe 2020-10 Yes [id number] 10mg Take 1 U nivers 10 mg 0-26 tablet by ity of tablet 00:00: mouth [place] 00 daily. Medical Branch nitroglycer 2020-[id number] 1 [facility] in 0.4 mg 0-26 tablet ity of sublingual 00:00: under the [place] tablet 00 tongue Medical every 5 Branch (five) minutes as needed for Chest pain. ezetimibe 2020-10 Yes [id number] 10mg Take 1 U nivers 10 mg 0-26 tablet by ity of tablet 00:00: mouth [place] 00 daily. Medical Branch nitroglycer 2020-[id number] 1 [facility] in 0.4 mg 0-26 tablet ity of sublingual 00:00: under the [place] tablet 00 tongue Medical every 5 Branch (five) minutes as needed for Chest pain. ezetimibe 2020-10 Yes [id number] 10mg Take 1 U nivers 10 mg 0-26 tablet by ity of tablet 00:00: mouth [place] 00 daily. Medical Branch nitroglycer 2020-[id number] 1 [facility] in 0.4 mg 0-26 tablet ity of sublingual 00:00: under the [place] tablet 00 tongue Medical every 5 Branch (five) minutes as needed for Chest pain. ezetimibe 2020-10 Yes [id number] 10mg Take 1 U nivers 10 mg 0-26 tablet by ity of tablet 00:00: mouth [place] 00 daily. Medical Branch nitroglycer 2020-[id number] 1 [facility] in 0.4 mg 0-26 tablet ity of sublingual 00:00: under the [place] tablet 00 tongue Medical every 5 Branch (five) minutes as needed for Chest pain. ezetimibe 2020-10 Yes [id number] 10mg Take 1 U nivers 10 mg 0-26 tablet by ity of tablet 00:00: mouth [place] 00 daily. Medical Branch nitroglycer 2020-[id number] 1 [facility] in 0.4 mg 0-26 tablet ity of sublingual 00:00: under the [place] tablet 00 tongue Medical every 5 Branch (five) minutes as needed for Chest pain. ezetimibe 2020-10 Yes [id number] 10mg Take 1 U nivers 10 mg 0-26 tablet by ity of tablet 00:00: mouth [place] 00 daily. Medical Branch nitroglycer 2020-[id number] 1 [facility] in 0.4 mg 0-26 tablet ity of sublingual 00:00: under the [place] tablet 00 tongue Medical every 5 Branch (five) minutes as needed for Chest pain. ezetimibe 2020-10 Yes [id number] 10mg Take 1 U nivers 10 mg 0-26 tablet by ity of tablet 00:00: mouth [place] 00 daily. Medical Branch nitroglycer 2020-[id number] 1 [facility] in 0.4 mg 0-26 tablet ity of sublingual 00:00: under the [place] tablet 00 tongue Medical every 5 Branch (five) minutes as needed for Chest pain. ezetimibe 2020-10 Yes [id number] 10mg Take 1 U nivers 10 mg 0-26 tablet by ity of tablet 00:00: mouth [place] 00 daily. Medical Branch nitroglycer 2020-[id number] 1 [facility] in 0.4 mg 0-26 tablet ity of sublingual 00:00: under the [place] tablet 00 tongue Medical every 5 Branch (five) minutes as needed for Chest pain. ezetimibe 2020-10 Yes [id number] 10mg Take 1 U nivers 10 mg 0-26 tablet by ity of tablet 00:00: mouth [place] 00 daily. Medical Branch nitroglycer 2020-[id number] 1 [facility] in 0.4 mg 0-26 tablet ity of sublingual 00:00: under the [place] tablet 00 tongue Medical every 5 Branch (five) minutes as needed for Chest pain. ezetimibe 2020-10 Yes [id number] 10mg Take 1 U nivers 10 mg 0-26 tablet by ity of tablet 00:00: mouth [place] 00 daily. Medical Branch nitroglycer 2020-[id number] 1 [facility] in 0.4 mg 0-26 tablet ity of sublingual 00:00: under the [place] tablet 00 tongue Medical every 5 Branch (five) minutes as needed for Chest pain. ezetimibe 2020-10 Yes [id number] 10mg Take 1 U nivers 10 mg 0-26 tablet by ity of tablet 00:00: mouth [place] 00 daily. Medical Branch nitroglycer 2020-[id number] 1 [facility] in 0.4 mg 0-26 tablet ity of sublingual 00:00: under the [place] tablet 00 tongue Medical every 5 Branch (five) minutes as needed for Chest pain. ezetimibe 2020-10 Yes [id number] 10mg Take 1 U nivers 10 mg 0-26 tablet by ity of tablet 00:00: mouth [place] 00 daily. Medical Branch nitroglycer 2020-[id number] 1 [facility] in 0.4 mg 0-26 tablet ity of sublingual 00:00: under the [place] tablet 00 tongue Medical every 5 Branch (five) minutes as needed for Chest pain. ezetimibe 2020-10 Yes [id number] 10mg Take 1 U nivers 10 mg 0-26 tablet by ity of tablet 00:00: mouth [place] 00 daily. Medical Branch nitroglycer 2020-[id number] 1 [facility] in 0.4 mg 0-26 tablet ity of sublingual 00:00: under the [place] tablet 00 tongue Medical every 5 Branch (five) minutes as needed for Chest pain. ezetimibe 2020-10 Yes [id number] 10mg Take 1 U nivers 10 mg 0-26 tablet by ity of tablet 00:00: mouth [place] 00 daily. Medical Branch nitroglycer 2020-[id number] 1 [facility] in 0.4 mg 0-26 tablet ity of sublingual 00:00: under the [place] tablet 00 tongue Medical every 5 Branch (five) minutes as needed for Chest pain. ezetimibe 2020-10 Yes [id number] 10mg Take 1 U nivers 10 mg 0-26 tablet by ity of tablet 00:00: mouth [place] 00 daily. Medical Branch nitroglycer 2020-[id number] 1 [facility] in 0.4 mg 0-26 tablet ity of sublingual 00:00: under the [place] tablet 00 tongue Medical every 5 Branch (five) minutes as needed for Chest pain. ezetimibe 2020-10 Yes [id number] 10mg Take 1 U nivers 10 mg 0-26 tablet by ity of tablet 00:00: mouth [place] 00 daily. Medical Branch nitroglycer 2020-[id number] 1 [facility] in 0.4 mg 0-26 tablet ity of sublingual 00:00: under the [place] tablet 00 tongue Medical every 5 Branch (five) minutes as needed for Chest pain. ezetimibe 2020-10 Yes [id number] 10mg Take 1 U nivers 10 mg 0-26 tablet by ity of tablet 00:00: mouth [place] 00 daily. Medical Branch nitroglycer 2020-[id number] 1 [facility] in 0.4 mg 0-26 tablet ity of sublingual 00:00: under the [place] tablet 00 tongue Medical every 5 Branch (five) minutes as needed for Chest pain. ezetimibe 2020-10 Yes [id number] 10mg Take 1 U nivers 10 mg 0-26 tablet by ity of tablet 00:00: mouth [place] 00 daily. Medical Branch nitroglycer 2020-[id number] 1 [facility] in 0.4 mg 0-26 tablet ity of sublingual 00:00: under the [place] tablet 00 tongue Medical every 5 Branch (five) minutes as needed for Chest pain. ezetimibe 2020-10 Yes [id number] 10mg Take 1 U nivers 10 mg 0-26 tablet by ity of tablet 00:00: mouth [place] 00 daily. Medical Branch nitroglycer 2020-[id number] 1 [facility] in 0.4 mg 0-26 tablet ity of sublingual 00:00: under the [place] tablet 00 tongue Medical every 5 Branch (five) minutes as needed for Chest pain. ezetimibe 2020-10 Yes [id number] 10mg Take 1 U nivers 10 mg 0-26 tablet by ity of tablet 00:00: mouth [place] 00 daily. Medical Branch nitroglycer 2020-[id number] 1 [facility] in 0.4 mg 0-26 tablet ity of sublingual 00:00: under the [place] tablet 00 tongue Medical every 5 Branch (five) minutes as needed for Chest pain. ezetimibe 2020-10 Yes [id number] 10mg Take 1 U nivers 10 mg 0-26 tablet by ity of tablet 00:00: mouth [place] 00 daily. Medical Branch nitroglycer 2020-[id number] 1 [facility] in 0.4 mg 0-26 tablet ity of sublingual 00:00: under the [place] tablet 00 tongue Medical every 5 Branch (five) minutes as needed for Chest pain. ezetimibe 2020-10 Yes [id number] 10mg Take 1 U nivers 10 mg 0-26 tablet by ity of tablet 00:00: mouth [place] 00 daily. Medical Branch nitroglycer 2020-[id number] 1 [facility] in 0.4 mg 0-26 tablet ity of sublingual 00:00: under the [place] tablet 00 tongue Medical every 5 Branch (five) minutes as needed for Chest pain. ezetimibe 2020-10 Yes [id number] 10mg Take 1 U nivers 10 mg 0-26 tablet by ity of tablet 00:00: mouth [place] 00 daily. Medical Branch nitroglycer 2020-[id number] 1 [facility] in 0.4 mg 0-26 tablet ity of sublingual 00:00: under the [place] tablet 00 tongue Medical every 5 Branch (five) minutes as needed for Chest pain. ezetimibe 2020-10 Yes [id number] 10mg Take 1 [facility] 10 mg 0-26 tablet by [facility] tablet 00:00: mouth [place] 00 daily. [facility] nitroglycer 2020-[id number] 1 [facility] 0.4 mg 0-26 tablet [facility] of sublingual 00:00: under the [place] tablet 00 tongue Medical every 5 Branch (five) minutes as needed for Chest pain. ezetimibe 2020-10 Yes [id number] 10mg Take 1 [facility] 10 mg 0-26 tablet by [facility] tablet 00:00: mouth [place] 00 daily. [facility] nitroglycer 2020-[id number] 1 [facility] in 0.4 mg 0-26 tablet [facility] of sublingual 00:00: under the [place] tablet 00 tongue Medical every 5 Branch (five) minutes as needed for Chest pain. ezetimibe 2020-10 Yes [id number] 10mg Take 1 [facility] 10 mg 0-26 tablet by [facility] tablet 00:00: mouth [place] 00 daily. [facility] nitroglycer 2020-[id number] 1 [facility] in 0.4 mg 0-26 tablet [facility] of sublingual 00:00: under the [place] tablet 00 tongue Medical every 5 Branch (five) minutes as needed for Chest pain. ezetimibe 2020-10 Yes [id number] 10mg Take 1 [facility] 10 mg 0-26 tablet by [facility] of tablet 00:00: mouth [place] 00 daily. [facility] nitroglycer 2020-[id number] 1 [facility] in 0.4 mg 0-26 tablet [facility] of sublingual 00:00: under the [place] tablet 00 tongue Medical every 5 Branch (five) minutes as needed for Chest pain. ezetimibe 2020-10 Yes [id number] 10mg Take 1 [facility] 10 mg 0-26 tablet by [facility] tablet 00:00: mouth [place] 00 daily. [facility] nitroglycer 2020-[id number] 1 [facility] in 0.4 mg 0-26 tablet [facility] of sublingual 00:00: under the [place] tablet 00 tongue Medical every 5 Branch (five) minutes as needed for Chest pain. ezetimibe 2020-10 Yes [id number] 10mg Take 1 [facility] 10 mg 0-26 tablet by [facility] tablet 00:00: mouth [place] 00 daily. [facility] nitroglycer 2020-[id number] 1 [facility] in 0.4 mg 0-26 tablet [facility] of sublingual 00:00: under the [place] tablet 00 tongue Medical every 5 Branch (five) minutes as needed for Chest pain. ezetimibe 2020-10 Yes [id number] 10mg Take 1 [facility] 10 mg 0-26 tablet by [facility] tablet 00:00: mouth [place] 00 daily. [facility] nitroglycer 2020-[id number] 1 [facility] in 0.4 mg 0-26 tablet [facility] of sublingual 00:00: under the [place] tablet 00 tongue Medical every 5 Branch (five) minutes as needed for Chest pain. ezetimibe 2020-10 Yes [id number] 10mg Take 1 [facility] 10 mg 0-26 tablet by [facility] tablet 00:00: mouth [place] 00 daily. [facility] nitroglycer 2020-[id number] 1 [facility] in 0.4 mg 0-26 tablet [facility] of sublingual 00:00: under the [place] tablet 00 tongue Medical every 5 Branch (five) minutes as needed for Chest pain. ezetimibe 2020-10 Yes [id number] 10mg Take 1 [facility] 10 mg 0-26 tablet by [facility] tablet 00:00: mouth [place] 00 daily. [facility] nitroglycer 2020-[id number] 1 [facility] in 0.4 mg 0-26 tablet [facility] of sublingual 00:00: under the [place] tablet 00 tongue Medical every 5 Branch (five) minutes as needed for Chest pain. ezetimibe 2020-10 Yes [id number] 10mg Take 1 [facility] 10 mg 0-26 tablet by [facility] tablet 00:00: mouth [place] 00 daily. [facility] nitroglycer 2020-[id number] 1 [facility] in 0.4 mg 0-26 tablet [facility] of sublingual 00:00: under the [place] tablet 00 tongue Medical every 5 Branch (five) minutes as needed for Chest pain. ezetimibe 2020-10 Yes [id number] 10mg Take 1 [facility] 10 mg 0-26 tablet by [facility] of tablet 00:00: mouth [place] 00 daily. [facility] nitroglycer 2020-[id number] 1 [facility] in 0.4 mg 0-26 tablet [facility] of sublingual 00:00: under the [place] tablet 00 tongue Medical every 5 Branch (five) minutes as needed for Chest pain. ezetimibe 2020-10 Yes [id number] 10mg Take 1 [facility] 10 mg 0-26 tablet by [facility] tablet 00:00: mouth [place] 00 daily. [facility] nitroglycer 2020-[id number] 1 [facility] in 0.4 mg 0-26 tablet [facility] of sublingual 00:00: under the [place] tablet 00 tongue Medical every 5 Branch (five) minutes as needed for Chest pain. ezetimibe 2020-10 Yes [id number] 10mg Take 1 [facility] 10 mg 0-26 tablet by [facility] of tablet 00:00: mouth [place] 00 daily. [facility] nitroglycer 2020-[id number] 1 [facility] in 0.4 mg 0-26 tablet [facility] of sublingual 00:00: under the [place] tablet 00 tongue Medical every 5 Branch (five) minutes as needed for Chest pain. ezetimibe 2020-10 Yes [id number] 10mg Take 1 [facility] 10 mg 0-26 tablet by [facility] of tablet 00:00: mouth [place] 00 daily. [facility] nitroglycer 2020-[id number] 1 [facility] in 0.4 mg 0-26 tablet [facility] of sublingual 00:00: under the [place] tablet 00 tongue Medical every 5 Branch (five) minutes as needed for Chest pain. ezetimibe 2020-10 Yes [id number] 10mg Take 1 [facility] 10 mg 0-26 tablet by [facility] tablet 00:00: mouth [place] 00 daily. [facility] nitroglycer 2020-[id number] 1 [facility] in 0.4 mg 0-26 tablet [facility] of sublingual 00:00: under the [place] tablet 00 tongue Medical every 5 Branch (five) minutes as needed for Chest pain. ezetimibe 2020-10 Yes [id number] 10mg Take 1 [facility] 10 mg 0-26 tablet by [facility] tablet 00:00: mouth [place] 00 daily. [facility] nitroglycer 2020-[id number] 1 [facility] in 0.4 mg 0-26 tablet [facility] of sublingual 00:00: under the [place] tablet 00 tongue Medical every 5 Branch (five) minutes as needed for Chest pain. ezetimibe 2020-10 Yes [id number] 10mg Take 1 [facility] 10 mg 0-26 tablet by [facility] tablet 00:00: mouth [place] 00 daily. [facility] nitroglycer 2020-[id number] 1 [facility] in 0.4 mg 0-26 tablet [facility] of sublingual 00:00: under the [place] tablet 00 tongue Medical every 5 Branch (five) minutes as needed for Chest pain. ezetimibe 2020-10 Yes [id number] 10mg Take 1 [facility] 10 mg 0-26 tablet by [facility] of tablet 00:00: mouth [place] 00 daily. [facility] nitroglycer 2020-[id number] 1 [facility] in 0.4 mg 0-26 tablet [facility] of sublingual 00:00: under the [place] tablet 00 tongue Medical every 5 Branch (five) minutes as needed for Chest pain. ezetimibe 2020-10 Yes [id number] 10mg Take 1 [facility] 10 mg 0-26 tablet by [facility] of tablet 00:00: mouth [place] 00 daily. [facility] nitroglycer 2020-[id number] 1 [facility] in 0.4 mg 0-26 tablet [facility] of sublingual 00:00: under the [place] tablet 00 tongue Medical every 5 Branch (five) minutes as needed for Chest pain. ezetimibe 2020-10 Yes [id number] 10mg Take 1 [facility] 10 mg 0-26 tablet by [facility] tablet 00:00: mouth [place] 00 daily. [facility] nitroglycer 2020-[id number] 1 [facility] in 0.4 mg 0-26 tablet [facility] of sublingual 00:00: under the [place] tablet 00 tongue Medical every 5 Branch (five) minutes as needed for Chest pain. ezetimibe 2020-10 Yes [id number] 10mg Take 1 [facility] 10 mg 0-26 tablet by [facility] of tablet 00:00: mouth [place] 00 daily. [facility] nitroglycer 2020-[id number] 1 [facility] in 0.4 mg 0-26 tablet [facility] of sublingual 00:00: under the [place] tablet 00 tongue Medical every 5 Branch (five) minutes as needed for Chest pain. ezetimibe 2020-10 Yes [id number] 10mg Take 1 [facility] 10 mg 0-26 tablet by [facility] of tablet 00:00: mouth [place] 00 daily. [facility] nitroglycer 2020-[id number] 1 [facility] in 0.4 mg 0-26 tablet it[facility] of sublingual 00:00: under the [place] tablet 00 tongue Medical every 5 Branch (five) minutes as needed for Chest pain. ezetimibe 2020-10 Yes [id number] 10mg Take 1 [facility] 10 mg 0-26 tablet by [facility] of tablet 00:00: mouth [place] 00 daily. [facility] nitroglycer 2020-[id number] 1 [facility] in 0.4 mg 0-26 tablet [facility] of sublingual 00:00: under the [place] tablet 00 tongue Medical every 5 Branch (five) minutes as needed for Chest pain. ezetimibe 2020-10 Yes [id number] 10mg Take 1 [facility] 10 mg 0-26 tablet by [facility] of tablet 00:00: mouth [place] 00 daily. [facility] nitroglycer 2020-[id number] 1 [facility] in 0.4 mg 0-26 tablet it[facility] of sublingual 00:00: under the [place] tablet 00 tongue Medical every 5 Branch (five) minutes as needed for Chest pain. ezetimibe 2020-10 Yes [id number] 10mg Take 1 [facility] 10 mg 0-26 tablet by [facility] of tablet 00:00: mouth [place] 00 daily. [facility] nitroglycer 2020-[id number] 1 [facility] in 0.4 mg 0-26 tablet [facility] of sublingual 00:00: under the [place] tablet 00 tongue Medical every 5 Branch (five) minutes as needed for Chest pain. ezetimibe 2020-10 Yes [id number] 10mg Take 1 [facility] 10 mg 0-26 tablet by [facility] of tablet 00:00: mouth [place] 00 daily. [facility] nitroglycer 2020-[id number] 1 [facility] in 0.4 mg 0-26 tablet [facility] of sublingual 00:00: under the [place] tablet 00 tongue Medical every 5 Branch (five) minutes as needed for Chest pain. ezetimibe 2020-10 Yes [id number] 10mg Take 1 [facility] 10 mg 0-26 tablet by [facility] of tablet 00:00: mouth [place] 00 daily. [facility] nitroglycer 2020-[id number] 1 [facility] in 0.4 mg 0-26 tablet [facility] of sublingual 00:00: under the [place] tablet 00 tongue Medical every 5 Branch (five) minutes as needed for Chest pain. ezetimibe 2020-10 Yes [id number] 10mg Take 1 [facility] 10 mg 0-26 tablet by [facility] of tablet 00:00: mouth [place] 00 daily. [facility] nitroglycer 2020-[id number] 1 [facility] in 0.4 mg 0-26 tablet [facility] of sublingual 00:00: under the [place] tablet 00 tongue Medical every 5 Branch (five) minutes as needed for Chest pain. ezetimibe 2020-10 Yes [id number] 10mg Take 1 [facility] 10 mg 0-26 tablet by [facility] of tablet 00:00: mouth [place] 00 daily. [facility] nitroglycer 2020-[id number] 1 [facility] in 0.4 mg 0-26 tablet it[facility] of sublingual 00:00: under the [place] tablet 00 tongue Medical every 5 Branch (five) minutes as needed for Chest pain. ezetimibe 2020-10 Yes [id number] 10mg Take 1 [facility] 10 mg 0-26 tablet by [facility] of tablet 00:00: mouth [place] 00 daily. [facility] nitroglycer 2020-[id number] 1 [facility] in 0.4 mg 0-26 tablet ity of sublingual 00:00: under the [place] tablet 00 tongue Medical every 5 Branch (five) minutes as needed for Chest pain. ezetimibe 2020-10 Yes [id number] 10mg Take 1 [facility] 10 mg 0-26 tablet by [facility] of tablet 00:00: mouth [place] 00 daily. Medical [facility] nitroglycer 2020-[id number] 1 [facility] in 0.4 mg 0-26 tablet ity of sublingual 00:00: under the [place] tablet 00 tongue Medical every 5 Branch (five) minutes as needed for Chest pain. ezetimibe 2020-10 Yes [id number] 10mg Take 1 [facility] 10 mg 0-26 tablet by [facility] of tablet 00:00: mouth [place] 00 daily. Medical [facility] nitroglycer 2020-[id number] 1 [facility] in 0.4 mg 0-26 tablet ity of sublingual 00:00: under the [place] tablet 00 tongue Medical every 5 Branch (five) minutes as needed for Chest pain. isosorbide 2020-10- No [id number] 60mg Take 1 [facility] mononitrate 0-26 03-07 tablet by it y of 60 mg 24 hr 00:00: 00:00 mouth 2 [place] tablet 00 :00 (two) Medical times Branch daily. isosorbide 2020-10- No [id number] 60mg Take 1 [facility] mononitrate 0-26 03-07 tablet by it y of 60 mg 24 hr 00:00: 00:00 mouth 2 [place] tablet 00 :00 (two) Medical times Branch daily. amLODIPine 2020-10- No [id number] 5mg Take 1 [facility] 5 mg tablet 0-26 02-16 tablet by it y of 00:00: 00:00 mouth [place] 00 :00 daily. Medical Branch amLODIPine 2020-10- No [id number] 5mg Take 1 [facility] 5 mg tablet 0-26 02-16 tablet by it y of 00:00: 00:00 mouth [place] 00 :00 daily. Medical Branch DULoxetine 2020-10- No [id number] 30mg Take 1 [facility] 30 mg 0-22 06-22 capsule by ity of capsule 00:00: 00:00 mouth 2 [place] 00 :00 (two) Medical times Branch daily. DULoxetine 2020-10- No [id number] 30mg Take 1 [facility] 30 mg 0-22 06-22 capsule by ity of capsule 00:00: 00:00 mouth 2 [place] 00 :00 (two) Medical times Branch daily. benzonatate 2020-10 Yes [id number] 100mg Take 1 [facility] 100 mg 0-13 capsule by ity of capsule 00:00: mouth 3 [place] 00 (three) Medical times Branch daily as needed for Cough. fluticasone 2020-10 Yes [id number] 1{spray Use 1 [facility] propionate 0-13 } [place] in ity o f 50 00:00: each [place] mcg/actuati 00 nostril Medic al on nasal daily. Branch spray benzonatate 2020-10 Yes [id number] 100mg Take 1 [facility] 100 mg 0-13 capsule by ity of capsule 00:00: mouth 3 00 (three) Medical times Branch daily as needed for Cough. fluticasone 2020-10 Yes [id number] 1{spray Use 1 [facility] propionate 0-13 } [place] in ity o f 50 00:00: each [place] mcg/actuati 00 nostril Medic al on nasal daily. Branch spray benzonatate 2020-10 Yes [id number] 100mg Take 1 [facility] 100 mg 0-13 capsule by ity of capsule 00:00: mouth 3 [place] 00 (three) Medical times Branch daily as needed for Cough. fluticasone 2020-10 Yes [id number] 1{spray Use 1 [facility] propionate 0-13 } [place] in ity o f 50 00:00: each [place] mcg/actuati 00 nostril Medic al on nasal daily. Branch spray benzonatate 2020-10 Yes [id number] 100mg Take 1 [facility] 100 mg 0-13 capsule by ity of capsule 00:00: mouth 3 [place] (three) Medical times Branch daily as needed for Cough. fluticasone 2020-10 Yes [id number] 1{spray Use 1 [facility] propionate 0-13 } [place] in ity o f 50 00:00: each [place] mcg/actuati 00 nostril Medic al on nasal daily. Branch spray benzonatate 2020-10 Yes [id number] 100mg Take 1 [facility] 100 mg 0-13 capsule by ity of capsule 00:00: mouth 3 00 (three) Medical times Branch daily as needed for Cough. fluticasone 2020-10 Yes [id number] 1{spray Use 1 [facility] propionate 0-13 } [place] in ity o f 50 00:00: each [place] mcg/actuati 00 nostril Medic al on nasal daily. Branch spray benzonatate 2020-10 Yes [id number] 100mg Take 1 [facility] 100 mg 0-13 capsule by ity of capsule 00:00: mouth 3 [place] 00 (three) Medical times Branch daily as needed for Cough. fluticasone 2020-10 Yes [id number] 1{spray Use 1 [facility] propionate 0-13 } [place] in ity o f 50 00:00: each [place] mcg/actuati 00 nostril Medic al on nasal daily. Branch spray benzonatate 2020-10 Yes [id number] 100mg Take 1 [facility] 100 mg 0-13 capsule by ity of capsule 00:00: mouth 3 [place] 00 (three) Medical times Branch daily as needed for Cough. fluticasone 2020-10 Yes [id number] 1{spray Use 1 [facility] propionate 0-13 } [place] in ity o f 50 00:00: each [place] mcg/actuati 00 nostril Medic al on nasal daily. Branch spray benzonatate 2020-10 Yes [id number] 100mg Take 1 [facility] 100 mg 0-13 capsule by ity of capsule 00:00: mouth 3 [place] 00 (three) Medical times Branch daily as needed for Cough. fluticasone 2020-10 Yes [id number] 1{spray Use 1 [facility] propionate 0-13 } [place] in ity o f 50 00:00: each [place] mcg/actuati 00 nostril Medic al on nasal daily. Branch spray benzonatate 2020-10 Yes [id number] 100mg Take 1 [facility] 100 mg 0-13 capsule by ity of capsule 00:00: mouth 3 00 (three) Medical times Branch daily as needed for Cough. fluticasone 2020-10 Yes [id number] 1{spray Use 1 [facility] propionate 0-13 } [place] in ity o f 50 00:00: each [place] mcg/actuati 00 nostril Medic al on nasal daily. Branch spray benzonatate 2020-10 Yes [id number] 100mg Take 1 [facility] 100 mg 0-13 capsule by ity of capsule 00:00: mouth 3 [place] 00 (three) Medical times Branch daily as needed for Cough. fluticasone 2020-10 Yes [id number] 1{spray Use 1 [facility] propionate 0-13 } [place] in ity o f 50 00:00: each [place] mcg/actuati 00 nostril Medic al on nasal daily. Branch spray benzonatate 2020-10 Yes [id number] 100mg Take 1 [facility] 100 mg 0-13 capsule by ity of capsule 00:00: mouth 3 [place] 00 (three) Medical times Branch daily as needed for Cough. fluticasone 2020-10 Yes [id number] 1{spray Use 1 [facility] propionate 0-13 } [place] in ity o f 50 00:00: each [place] mcg/actuati 00 nostril Medic al on nasal daily. Branch spray benzonatate 2020-10 Yes [id number] 100mg Take 1 [facility] 100 mg 0-13 capsule by ity of capsule 00:00: mouth 3 [place] 00 (three) Medical times Branch daily as needed for Cough. fluticasone 2020-10 Yes [id number] 1{spray Use 1 [facility] propionate 0-13 } [place] in ity o f 50 00:00: each [place] mcg/actuati 00 nostril Medic al on nasal daily. Branch spray benzonatate 2020-10 Yes [id number] 100mg Take 1 [facility] 100 mg 0-13 capsule by ity of capsule 00:00: mouth 3 [place] 00 (three) Medical times Branch daily as needed for Cough. fluticasone 2020-10 Yes [id number] 1{spray Use 1 [facility] propionate 0-13 } [place] in ity o f 50 00:00: each [place] mcg/actuati 00 nostril Medic al on nasal daily. Branch spray benzonatate 2020-10 Yes [id number] 100mg Take 1 [facility] 100 mg 0-13 capsule by ity of capsule 00:00: mouth 3 [place] 00 (three) Medical times Branch daily as needed for Cough. fluticasone 2020-10 Yes [id number] 1{spray Use 1 [facility] propionate 0-13 } [place] in ity o f 50 00:00: each [place] mcg/actuati 00 nostril Medic al on nasal daily. Branch spray benzonatate 2020-10 Yes [id number] 100mg Take 1 [facility] 100 mg 0-13 capsule by ity of capsule 00:00: mouth 3 [place] 00 (three) Medical times Branch daily as needed for Cough. fluticasone 2020-10 Yes [id number] 1{spray Use 1 [facility] propionate 0-13 } [place] in ity o f 50 00:00: each [place] mcg/actuati 00 nostril Medic al on nasal daily. Branch spray benzonatate 2020-10 Yes [id number] 100mg Take 1 [facility] 100 mg 0-13 capsule by ity of capsule 00:00: mouth 3 [place] 00 (three) Medical times Branch daily as needed for Cough. fluticasone 2020-10 Yes [id number] 1{spray Use 1 [facility] propionate 0-13 } [place] in ity o f 50 00:00: each [place] mcg/actuati 00 nostril Medic al on nasal daily. Branch spray benzonatate 2020-10 Yes [id number] 100mg Take 1 [facility] 100 mg 0-13 capsule by ity of capsule 00:00: mouth 3 [place] 00 (three) Medical times Branch daily as needed for Cough. fluticasone 2020-10 Yes [id number] 1{spray Use 1 [facility] propionate 0-13 } [place] in ity o f 50 00:00: each [place] mcg/actuati 00 nostril Medic al on nasal daily. Branch spray benzonatate 2020-10 Yes [id number] 100mg Take 1 [facility] 100 mg 0-13 capsule by ity of capsule 00:00: mouth 3 [place] 00 (three) Medical times Branch daily as needed for Cough. fluticasone 2020-10 Yes [id number] 1{spray Use 1 [facility] propionate 0-13 } [place] in ity o f 50 00:00: each [place] mcg/actuati 00 nostril Medic al on nasal daily. Branch spray benzonatate 2020-10 Yes [id number] 100mg Take 1 [facility] 100 mg 0-13 capsule by ity of capsule 00:00: mouth 3 [place] (three) Medical times Branch daily as needed for Cough. fluticasone 2020-10 Yes [id number] 1{spray Use 1 [facility] propionate 0-13 } [place] in ity o f 50 00:00: each [place] mcg/actuati 00 nostril Medic al on nasal daily. Branch spray benzonatate 2020-10 Yes [id number] 100mg Take 1 [facility] 100 mg 0-13 capsule by ity of capsule 00:00: mouth 3 [place] 00 (three) Medical times Branch daily as needed for Cough. fluticasone 2020-10 Yes [id number] 1{spray Use 1 [facility] propionate 0-13 } [place] in ity o f 50 00:00: each [place] mcg/actuati 00 nostril Medic al on nasal daily. Branch spray benzonatate 2020-10 Yes [id number] 100mg Take 1 [facility] 100 mg 0-13 capsule by ity of capsule 00:00: mouth 3 [place] 00 (three) Medical times Branch daily as needed for Cough. fluticasone 2020-10 Yes [id number] 1{spray Use 1 [facility] propionate 0-13 } [place] in ity o f 50 00:00: each [place] mcg/actuati 00 nostril Medic al on nasal daily. Branch spray benzonatate 2020-10 Yes [id number] 100mg Take 1 [facility] 100 mg 0-13 capsule by ity of capsule 00:00: mouth 3 [place] 00 (three) Medical times Branch daily as needed for Cough. fluticasone 2020-10 Yes [id number] 1{spray Use 1 [facility] propionate 0-13 } [place] in ity o f 50 00:00: each [place] mcg/actuati 00 nostril Medic al on nasal daily. Branch spray benzonatate 2020-10 Yes [id number] 100mg Take 1 [facility] 100 mg 0-13 capsule by ity of capsule 00:00: mouth 3 [place] 00 (three) Medical times Branch daily as needed for Cough. fluticasone 2020-10 Yes [id number] 1{spray Use 1 [facility] propionate 0-13 } [place] in ity o f 50 00:00: each [place] mcg/actuati 00 nostril Medic al on nasal daily. Branch spray fluticasone 2020-10 Yes [id number] 1{spray Use 1 [facility] propionate 0-13 } [place] in ity o f 50 00:00: each [place] mcg/actuati 00 nostril Medic al on nasal daily. Branch spray fluticasone 2020-10 Yes [id number] 1{spray Use 1 [facility] propionate 0-13 } [place] in ity o f 50 00:00: each [place] mcg/actuati 00 nostril Medic al on nasal daily. Branch spray fluticasone 2020-10 Yes [id number] 1{spray Use 1 [facility] propionate 0-13 } [place] in ity o f 50 00:00: each [place] mcg/actuati 00 nostril Medic al on nasal daily. Branch spray fluticasone 2020-10 Yes [id number] 1{spray Use 1 [facility] propionate 0-13 } [place] in ity o f 50 00:00: each [place] mcg/actuati 00 nostril Medic al on nasal daily. Branch spray fluticasone 2020-10 Yes [id number] 1{spray Use 1 [facility] propionate 0-13 } [place] in ity o f 50 00:00: each [place] mcg/actuati 00 nostril Medic al on nasal daily. Branch spray fluticasone 2020-10 Yes [id number] 1{spray Use 1 [facility] propionate 0-13 } [place] in ity o f 50 00:00: each [place] mcg/actuati 00 nostril Medic al on nasal daily. Branch spray fluticasone 2020-10 Yes [id number] 1{spray Use 1 [facility] propionate 0-13 } [place] in ity o f 50 00:00: each [place] mcg/actuati 00 nostril Medic al on nasal daily. Branch spray fluticasone 2020-10 Yes [id number] 1{spray Use 1 [facility] propionate 0-13 } [place] in ity o f 50 00:00: each [place] mcg/actuati 00 nostril Medic al on nasal daily. Branch spray fluticasone 2020-10 Yes [id number] 1{spray Use 1 [facility] propionate 0-13 } [place] in ity o f 50 00:00: each [place] mcg/actuati 00 nostril Medic al on nasal daily. Branch spray fluticasone 2020-10 Yes [id number] 1{spray Use 1 [facility] propionate 0-13 } [place] in ity o f 50 00:00: each [place] mcg/actuati 00 nostril Medic al on nasal daily. Branch spray fluticasone 2020-10 Yes [id number] 1{spray Use 1 [facility] propionate 0-13 } [place] in ity o f 50 00:00: each [place] mcg/actuati 00 nostril Medic al on nasal daily. Branch spray fluticasone 2020-10 Yes [id number] 1{spray Use 1 [facility] propionate 0-13 } [place] in ity o f 50 00:00: each [place] mcg/actuati 00 nostril Medic al on nasal daily. Branch spray fluticasone 2020-10 Yes [id number] 1{spray Use 1 [facility] propionate 0-13 } [place] in ity o f 50 00:00: each [place] mcg/actuati 00 nostril Medic al on nasal daily. Branch spray fluticasone 2020-10 Yes [id number] 1{spray Use 1 [facility] propionate 0-13 } [place] in ity o f 50 00:00: each [place] mcg/actuati 00 nostril Medic al on nasal daily. Branch spray fluticasone 2020-10- [id number] 1{spray Use 1 [facility] propionate 0-13 01-25 } [place] in ity of 50 00:00: 00:00 each [place] mcg/actuati 00 :00 nostril Medic al on nasal daily. Branch spray fluticasone 2020-10- No [id number] 1{spray Use 1 [facility] propionate 0-13 -25 } [place] in ity of 50 00:00: 00:00 each [place] mcg/actuati 00 :00 nostril Medic al on nasal daily. Branch spray fluticasone 2020-10- No [id number] 1{spray Use 1 [facility] propionate 0-13 25 } [place] in ity of 50 00:00: 00:00 each [place] mcg/actuati 00 :00 nostril Medic al on nasal daily. Branch spray benzonatate 2020-10- No [id number] 100mg Take 1 [facility] 100 mg 0-13 12-08 capsule by ity of capsule 00:00: 00:00 mouth 3 [place] 00 :00 (three) Medical times Branch daily as needed for Cough. benzonatate 2020-10- No [id number] 100mg Take 1 [facility] 100 mg 0-13 12-08 capsule by ity of capsule 00:00: 00:00 mouth 3 [place] 00 :00 (three) Medical times Branch daily as needed for Cough. benzonatate 2020-10- No [id number] 100mg Take 1 [facility] 100 mg 0-13 12-08 capsule by ity of capsule 00:00: 00:00 mouth 3 [place] 00 :00 (three) Medical times Branch daily as needed for Cough. benzonatate 2020-10- No [id number] 100mg Take 1 [facility] 100 mg 0-13 12-08 capsule by ity of capsule 00:00: 00:00 mouth 3 [place] 00 :00 (three) Medical times Branch daily as needed for Cough. benzonatate 2020-10- No [id number] 100mg Take 1 [facility] 100 mg 0-13 12-08 capsule by ity of capsule 00:00: 00:00 mouth 3 [place] 00 :00 (three) Medical times Branch daily as needed for Cough. benzonatate 2020-10- No [id number] 100mg Take 1 [facility] 100 mg 0-13 12-08 capsule by ity of capsule 00:00: 00:00 mouth 3 [place] 00 :00 (three) Medical times Branch daily as needed for Cough. DULoxetine 2021- No [id number] 40mg Take 40 mg [facility] 40 mg CpDR 06-27 by mouth 2 it y of 00:00: 00:00 (two) [place] 00 :00 times Medical daily. Branch DULoxetine 2021- No [id number] 40mg Take 40 mg [facility] 40 mg CpDR 06-27- by mouth 2 it y of 00:00: 00:00 (two) [place] 00 :00 times Medical daily. Branch SPIRONOLACT 2020-0 Yes TAKE 1 [facility] ONE 25 mg 9-16 TABLET BY ity o f tablet 00:00: MOUTH ONCE DAILY Medical Branch SPIRONOLACT 2020-0 Yes TAKE 1 [facility] ONE 25 mg 9-16 TABLET BY ity o f tablet 00:00: MOUTH ONCE DAILY Medical [facility] SPIRONOLACT 2020-0 Yes TAKE 1 [facility] ONE 25 mg 9-16 TABLET BY ity o f tablet 00:00: MOUTH ONCE DAILY [facility] SPIRONOLACT 2020-0 Yes TAKE 1 [facility] ONE 25 mg 9-16 TABLET BY ity o f tablet 00:00: MOUTH ONCE DAILY [facility] SPIRONOLACT 2020-0 Yes TAKE 1 [facility] ONE 25 mg 9-16 TABLET BY ity o f tablet 00:00: MOUTH ONCE DAILY [facility] SPIRONOLACT 2020-0 Yes TAKE 1 [facility] ONE 25 mg 9-16 TABLET BY ity o f tablet 00:00: MOUTH ONCE DAILY [facility] SPIRONOLACT 2020-0 Yes TAKE 1 [facility] ONE 25 mg 9-16 TABLET BY ity o f tablet 00:00: MOUTH ONCE DAILY [facility] SPIRONOLACT 2020-0 Yes TAKE 1 [facility] ONE 25 mg 9-16 TABLET BY ity o f tablet 00:00: MOUTH ONCE DAILY [facility] SPIRONOLACT 2020-0 Yes TAKE 1 [facility] ONE 25 mg 9-16 TABLET BY ity o f tablet 00:00: MOUTH ONCE DAILY [facility] SPIRONOLACT 2020-0 Yes TAKE 1 [facility] ONE 25 mg 9-16 TABLET BY ity o f tablet 00:00: MOUTH ONCE DAILY [facility] SPIRONOLACT 2020-0 Yes TAKE 1 [facility] ONE 25 mg 9-16 TABLET BY ity o f tablet 00:00: MOUTH ONCE DAILY [facility] SPIRONOLACT 2020-0 Yes TAKE 1 [facility] ONE 25 mg 9-16 TABLET BY ity o f tablet 00:00: MOUTH ONCE DAILY [facility] SPIRONOLACT 2020-0 Yes TAKE 1 [facility] ONE 25 mg 9-16 TABLET BY ity o f tablet 00:00: MOUTH ONCE DAILY [facility] SPIRONOLACT 2020-0 Yes TAKE 1 [facility] ONE 25 mg 9-16 TABLET BY ity o f tablet 00:00: MOUTH ONCE DAILY [facility] SPIRONOLACT 2020-0 Yes TAKE 1 [facility] ONE 25 mg 9-16 TABLET BY ity o f tablet 00:00: MOUTH ONCE DAILY [facility] SPIRONOLACT 2020-0 Yes TAKE 1 [facility] ONE 25 mg 9-16 TABLET BY ity o f tablet 00:00: MOUTH ONCE DAILY [facility] SPIRONOLACT 2020-0 Yes TAKE 1 [facility] ONE 25 mg 9-16 TABLET BY ity o f tablet 00:00: MOUTH ONCE DAILY [facility] SPIRONOLACT 2020-0 Yes TAKE 1 [facility] ONE 25 mg 9-16 TABLET BY ity o f tablet 00:00: MOUTH ONCE DAILY [facility] SPIRONOLACT 2020-0 Yes TAKE 1 [facility] ONE 25 mg 9-16 TABLET BY ity o f tablet 00:00: MOUTH ONCE DAILY [facility] SPIRONOLACT 2020-0 Yes TAKE 1 [facility] ONE 25 mg 9-16 TABLET BY ity o f tablet 00:00: MOUTH ONCE DAILY [facility] SPIRONOLACT 2020-0 Yes TAKE 1 [facility] ONE 25 mg 9-16 TABLET BY ity o f tablet 00:00: MOUTH ONCE DAILY [facility] SPIRONOLACT 2020-0 Yes TAKE 1 [facility] ONE 25 mg 9-16 TABLET BY ity o f tablet 00:00: MOUTH ONCE DAILY [facility] SPIRONOLACT 2020-0 Yes TAKE 1 [facility] ONE 25 mg 9-16 TABLET BY ity o f tablet 00:00: MOUTH ONCE DAILY [facility] SPIRONOLACT 2020-0 Yes TAKE 1 [facility] ONE 25 mg 9-16 TABLET BY ity o f tablet 00:00: MOUTH ONCE DAILY [facility] SPIRONOLACT 2021-0 Yes TAKE 1 [facility] ONE 25 mg 9-16 TABLET BY ity o f tablet 00:00: MOUTH ONCE DAILY [facility] SPIRONOLACT 0 Yes TAKE 1 [facility] ONE 25 mg 9-16 TABLET BY ity o f tablet 00:00: MOUTH ONCE DAILY [facility] SPIRONOLACT 0 Yes TAKE 1 [facility] ONE 25 mg 9-16 TABLET BY ity o f tablet 00:00: MOUTH ONCE DAILY [facility] SPIRONOLACT 0 Yes TAKE 1 [facility] ONE 25 mg 9-16 TABLET BY ity o f tablet 00:00: MOUTH ONCE DAILY [facility] SPIRONOLACT 2020-0 2021- No TAKE 1 [facility] ONE 25 mg 9-16 12-20 TABLET BY [facility] tablet 00:00: 00:[place]CE [place] 00 :[place] DAILY [facility] SPIRONOLACT 2020-0 2021- No TAKE 1 [facility] ONE 25 mg 9-16 12-20 TABLET BY [facility] of tablet 00:00: 00:[place] M[place] ONCE [place] 00 :[place] DAILY [facility] SPIRONOLACT 2020-0 2021- No TAKE 1 [facility] ONE 25 mg 9-16 12-20 TABLET BY it[facility] of tablet 00:00: 00:00 M[place]TH ONCE [place] 00 :[place] DAILY [facility] SPIRONOLACT 2020-0 2021- No TAKE 1 [facility] ONE 25 mg 9-16 12-20 TABLET BY ity of tablet 00:00: 00:00 MOUTH ONCE [place] 00 :00 DAILY [facility] bromphenira Yes [id number] 5mL Take 5 mL [facility] mine-pseudo 8-13 by mouth 4 it y of ephedrine-D 00:00: (four) [place] M (BROMFED 00 times Medical DM) 2-30-10 daily as Bran ch mg/5 mL needed for syrup Congestion /Allergies . benzonatate Yes [id number] 100mg Take 1 [facility] 100 mg 8-13 capsule by ity of capsule 00:00: mouth 3 [place] 00 (three) Medical times Branch daily as needed for Cough. albuterol Yes [id number] 2{puff} Inhale 2 [facility] 90 8-13 Puffs ity of mcg/actuati 00:00: every 4 [place] as on inhaler 00 (four) Medical hours as Branch needed for Wheezing or Shortness of Breath. bromphenira 2020-0 Yes [id number] 5mL Take 5 mL [facility] mine-pseudo 8-13 by mouth 4 it y of ephedrine-D 00:00: (four) [place] M (BROMFED 00 times Medical DM) 2-30-10 daily as Bran ch mg/5 mL needed for syrup Congestion /Allergies . benzonatate 2020-0 Yes [id number] 100mg Take 1 [facility] 100 mg 8-13 capsule by ity of capsule 00:00: mouth 3 [place] (three) Medical times Branch daily as needed for Cough. albuterol 2020-0 Yes [id number] 2{puff} Inhale 2 [facility] 90 8-13 Puffs ity of mcg/actuati 00:00: every 4 [place] on inhaler 00 (four) Medical hours as Branch needed for Wheezing or Shortness of Breath. bromphenira 2020-0 Yes [id number] 5mL Take 5 mL [facility] mine-pseudo 8-13 by mouth 4 it y of ephedrine-D 00:00: (four) [place] M (BROMFED 00 times Medical DM) 2-30-10 daily as Bran ch mg/5 mL needed for syrup Congestion /Allergies . benzonatate 2020-0 Yes [id number] 100mg Take 1 [facility] 100 mg 8-13 capsule by ity of capsule 00:00: mouth 3 (three) Medical times Branch daily as needed for Cough. albuterol 2020-0 Yes [id number] 2{puff} Inhale 2 [facility] 90 8-13 Puffs ity of mcg/actuati 00:00: every 4 [place] as on inhaler 00 (four) Medical hours as Branch needed for Wheezing or Shortness of Breath. bromphenira 2020-0 Yes [id number] 5mL Take 5 mL [facility] mine-pseudo 8-13 by mouth 4 it y of ephedrine-D 00:00: (four) [place] M (BROMFED 00 times Medical DM) 2-30-10 daily as Bran ch mg/5 mL needed for syrup Congestion /Allergies . benzonatate 2020-0 Yes [id number] 100mg Take 1 [facility] 100 mg 8-13 capsule by ity of capsule 00:00: mouth 3 [place] (three) Medical times Branch daily as needed for Cough. albuterol 2020-0 Yes [id number] 2{puff} Inhale 2 [facility] 90 8-13 Puffs ity of mcg/actuati 00:00: every 4 [place] as on inhaler 00 (four) Medical hours as Branch needed for Wheezing or Shortness of Breath. bromphenira 2020-0 Yes [id number] 5mL Take 5 mL [facility] mine-pseudo 8-13 by mouth 4 it y of ephedrine-D 00:00: (four) [place] M (BROMFED 00 times Medical DM) 2-30-10 daily as Bran ch mg/5 mL needed for syrup Congestion /Allergies . benzonatate 0 Yes [id number] 100mg Take 1 [facility] 100 mg 8-13 capsule by ity of capsule 00:00: mouth 3 [place] (three) Medical times Branch daily as needed for Cough. albuterol 0 Yes [id number] 2{puff} Inhale 2 [facility] 90 8-13 Puffs ity of mcg/actuati 00:00: every 4 [place] as on inhaler 00 (four) Medical hours as Branch needed for Wheezing or Shortness of Breath. bromphenira 2020-0 Yes [id number] 5mL Take 5 mL [facility] mine-pseudo 8-13 by mouth 4 it y of ephedrine-D 00:00: (four) [place] M (BROMFED times Medical DM) 2-30-10 daily as [facility] ch mg/5 mL needed for syrup Congestion /Allergies . benzonatate 2020-0 Yes [id number] 100mg Take 1 [facility] 100 mg 8-13 capsule by ity of capsule 00:00: mouth 3 [place] (three) Medical times Branch daily as needed for Cough. albuterol 2020-0 Yes [id number] 2{puff} Inhale 2 [facility] 90 8-13 Puffs ity of mcg/actuati 00:00: every 4 [place] on inhaler 00 (four) Medical hours as Branch needed for Wheezing or Shortness of Breath. bromphenira 2020-0 Yes [id number] 5mL Take 5 mL [facility] mine-pseudo 8-13 by mouth 4 it y of ephedrine-D 00:00: (four) [place] M (BROMFED 00 times Medical DM) 2-30-10 daily as Bran ch mg/5 mL needed for syrup Congestion /Allergies . benzonatate 2020-0 Yes [id number] 100mg Take 1 [facility] 100 mg 8-13 capsule by ity of capsule 00:00: mouth 3 [place] (three) Medical times Branch daily as needed for Cough. albuterol 2020-0 Yes [id number] 2{puff} Inhale 2 [facility] 90 8-13 Puffs ity of mcg/actuati 00:00: every 4 [place] on inhaler 00 (four) Medical hours as Branch needed for Wheezing or Shortness of Breath. bromphenira 2020-0 Yes [id number] 5mL Take 5 mL [facility] mine-pseudo 8-13 by mouth 4 it y of ephedrine-D 00:00: (four) [place] M (BROMFED 00 times Medical DM) 2-30-10 daily as Bran ch mg/5 mL needed for syrup Congestion /Allergies . benzonatate 2020-0 Yes [id number] 100mg Take 1 [facility] 100 mg 8-13 capsule by ity of capsule 00:00: mouth 3 (three) Medical times Branch daily as needed for Cough. albuterol 2020-0 Yes [id number] 2{puff} Inhale 2 [facility] 90 8-13 Puffs ity of mcg/actuati 00:00: every 4 [place] on inhaler 00 (four) Medical hours as Branch needed for Wheezing or Shortness of Breath. bromphenira 2020-0 Yes [id number] 5mL Take 5 mL [facility] mine-pseudo 8-13 by mouth 4 it y of ephedrine-D 00:00: (four) [place] [facility] (BROMFED 00 times Medical DM) 2-30-10 daily as Bran ch mg/5 mL needed for syrup Congestion /Allergies . benzonatate 2020-0 Yes [id number] 100mg Take 1 [facility] 100 mg 8-13 capsule by ity of capsule 00:00: mouth 3 [place] (three) Medical times Branch daily as needed for Cough. albuterol 2020-0 Yes [id number] 2{puff} Inhale 2 [facility] 90 8-13 Puffs ity of mcg/actuati 00:00: every 4 [place] as on inhaler 00 (four) Medical hours as Branch needed for Wheezing or Shortness of Breath. bromphenira 2020-0 Yes [id number] 5mL Take 5 mL [facility] mine-pseudo 8-13 by mouth 4 it y of ephedrine-D 00:00: (four) [place] M (BROMFED 00 times Medical DM) 2-30-10 daily as Bran ch mg/5 mL needed for syrup Congestion /Allergies . benzonatate 2020-0 Yes [id number] 100mg Take 1 [facility] 100 mg 8-13 capsule by ity of capsule 00:00: mouth 3 [place] 00 (three) Medical times Branch daily as needed for Cough. albuterol 0 Yes [id number] 2{puff} Inhale 2 [facility] 90 8-13 Puffs ity of mcg/actuati 00:00: every 4 [place] [facility] on inhaler 00 (four) Medical hours as Branch needed for Wheezing or Shortness of Breath. bromphenira 0 Yes [id number] 5mL Take 5 mL [facility] mine-pseudo 8-13 by mouth 4 it y of ephedrine-D 00:00: (four) [place] M (BROMFED 00 times Medical DM) 2-30-10 daily as [facility] ch mg/5 mL needed for syrup Congestion /Allergies . benzonatate 0 Yes [id number] 100mg Take 1 [facility] 100 mg 8-13 capsule by ity of capsule 00:00: mouth 3 [place] 00 (three) Medical times Branch daily as needed for Cough. albuterol 0 Yes [id number] 2{puff} Inhale 2 [facility] 90 8-13 Puffs ity of mcg/actuati 00:00: every 4 [place] as on inhaler 00 (four) Medical hours as Branch needed for Wheezing or Shortness of Breath. bromphenira 0 Yes [id number] 5mL Take 5 mL [facility] mine-pseudo 8-13 by mouth 4 it y of ephedrine-D 00:00: (four) [place] M (BROMFED 00 times Medical DM) 2-30-10 daily as Bran ch mg/5 mL needed for syrup Congestion /Allergies . benzonatate 2020-0 Yes [id number] 100mg Take 1 [facility] 100 mg 8-13 capsule by ity of capsule 00:00: mouth 3 [place] 00 (three) Medical times Branch daily as needed for Cough. albuterol 2020-0 Yes [id number] 2{puff} Inhale 2 [facility] 90 8-13 Puffs ity of mcg/actuati 00:00: every 4 [place] on inhaler 00 (four) Medical hours as Branch needed for Wheezing or Shortness of Breath. bromphenira 2020-0 Yes [id number] 5mL Take 5 mL [facility] mine-pseudo 8-13 by mouth 4 it y of ephedrine-D 00:00: (four) [place] [facility] (BROMFED 00 times Medical DM) 2-30-10 daily as Bran ch mg/5 mL needed for syrup Congestion /Allergies . benzonatate 2020-0 Yes [id number] 100mg Take 1 [facility] 100 mg 8-13 capsule by ity of capsule 00:00: mouth 3 [place] (three) Medical times Branch daily as needed for Cough. albuterol 2020-0 Yes [id number] 2{puff} Inhale 2 [facility] 90 8-13 Puffs ity of mcg/actuati 00:00: every 4 [place] on inhaler 00 (four) Medical hours as Branch needed for Wheezing or Shortness of Breath. bromphenira 2020-0 Yes [id number] 5mL Take 5 mL [facility] mine-pseudo 8-13 by mouth 4 it y of ephedrine-D 00:00: (four) [place] M (BROMFED 00 times Medical DM) 2-30-10 daily as [facility] ch mg/5 mL needed for syrup Congestion /Allergies . benzonatate 2020-0 Yes [id number] 100mg Take 1 [facility] 100 mg 8-13 capsule by ity of capsule 00:00: mouth 3 (three) Medical times Branch daily as needed for Cough. albuterol 2020-0 Yes [id number] 2{puff} Inhale 2 [facility] 90 8-13 Puffs ity of mcg/actuati 00:00: every 4 [place] on inhaler 00 (four) Medical hours as Branch needed for Wheezing or Shortness of Breath. bromphenira 2020-0 Yes [id number] 5mL Take 5 mL [facility] mine-pseudo 8-13 by mouth 4 it y of ephedrine-D 00:00: (four) [place] [facility] (BROMFED 00 times Medical DM) 2-30-10 daily as [facility] ch mg/5 mL needed for syrup Congestion /Allergies . benzonatate 2020-0 Yes [id number] 100mg Take 1 [facility] 100 mg 8-13 capsule by ity of capsule 00:00: mouth 3 [place] 00 (three) Medical times Branch daily as needed for Cough. albuterol 2020-0 Yes [id number] 2{puff} Inhale 2 [facility] 90 8-13 Puffs ity of mcg/actuati 00:00: every 4 [place] as on inhaler 00 (four) Medical hours as Branch needed for Wheezing or Shortness of Breath. bromphenira 2020-0 Yes [id number] 5mL Take 5 mL [facility] mine-pseudo 8-13 by mouth 4 it y of ephedrine-D 00:00: (four) [place] [facility] (BROMFED times Medical DM) 2-30-10 daily as [facility] ch mg/5 mL needed for syrup Congestion /Allergies . benzonatate 2020-0 Yes [id number] 100mg Take 1 [facility] 100 mg 8-13 capsule by ity of capsule 00:00: mouth 3 [place] (three) Medical times Branch daily as needed for Cough. albuterol 2020-0 Yes [id number] 2{puff} Inhale 2 [facility] 90 8-13 Puffs ity of mcg/actuati 00:00: every 4 [place] as on inhaler 00 (four) Medical hours as Branch needed for Wheezing or Shortness of Breath. bromphenira 2020-0 Yes [id number] 5mL Take 5 mL [facility] mine-pseudo 8-13 by mouth 4 it y of ephedrine-D 00:00: (four) [place] [facility] (BROMFED times Medical DM) 2-30-10 daily as [facility] ch mg/5 mL needed for syrup Congestion /Allergies . benzonatate 2020-0 Yes [id number] 100mg Take 1 [facility] 100 mg 8-13 capsule by ity of capsule 00:00: mouth 3 [place] (three) Medical times Branch daily as needed for Cough. albuterol 2020-0 Yes [id number] 2{puff} Inhale 2 [facility] 90 8-13 Puffs ity of mcg/actuati 00:00: every 4 [place] as on inhaler 00 (four) Medical hours as Branch needed for Wheezing or Shortness of Breath. bromphenira 2020-0 Yes [id number] 5mL Take 5 mL [facility] mine-pseudo 8-13 by mouth 4 it y of ephedrine-D 00:00: (four) [place] [facility] (BROMFED 00 times Medical DM) 2-30-10 daily as [facility] ch mg/5 mL needed for syrup Congestion /Allergies . benzonatate 2020-0 Yes [id number] 100mg Take 1 [facility] 100 mg 8-13 capsule by ity of capsule 00:00: mouth 3 (three) Medical times Branch daily as needed for Cough. albuterol 2020-0 Yes [id number] 2{puff} Inhale 2 [facility] 90 8-13 Puffs ity of mcg/actuati 00:00: every 4 [place] as on inhaler 00 (four) Medical hours as Branch needed for Wheezing or Shortness of Breath. bromphenira 2020-0 Yes [id number] 5mL Take 5 mL [facility] mine-pseudo 8-13 by mouth 4 it y of ephedrine-D 00:00: (four) [place] [facility] (BROMFED times Medical DM) 2-30-10 daily as [facility] ch mg/5 mL needed for syrup Congestion /Allergies . benzonatate 2020-0 Yes [id number] 100mg Take 1 [facility] 100 mg 8-13 capsule by ity of capsule 00:00: mouth 3 (three) Medical times Branch daily as needed for Cough. albuterol 2020-0 Yes [id number] 2{puff} Inhale 2 [facility] 90 8-13 Puffs ity of mcg/actuati 00:00: every 4 [place] as on inhaler 00 (four) Medical hours as Branch needed for Wheezing or Shortness of Breath. bromphenira 2020-0 Yes [id number] 5mL Take 5 mL [facility] mine-pseudo 8-13 by mouth 4 it y of ephedrine-D 00:00: (four) [place] [facility] (BROMFED 00 times Medical DM) 2-30-10 daily as Bran ch mg/5 mL needed for syrup Congestion /Allergies . benzonatate 2020-0 Yes [id number] 100mg Take 1 [facility] 100 mg 8-13 capsule by ity of capsule 00:00: mouth 3 (three) Medical times Branch daily as needed for Cough. albuterol 2020-0 Yes [id number] 2{puff} Inhale 2 [facility] 90 8-13 Puffs ity of mcg/actuati 00:00: every 4 [place] as on inhaler 00 (four) Medical hours as Branch needed for Wheezing or Shortness of Breath. bromphenira 2020-0 Yes [id number] 5mL Take 5 mL [facility] mine-pseudo 8-13 by mouth 4 it y of ephedrine-D 00:00: (four) [place] [facility] (BROMFED 00 times Medical DM) 2-30-10 daily as [facility] ch mg/5 mL needed for syrup Congestion /Allergies . benzonatate 0 Yes [id number] 100mg Take 1 [facility] 100 mg 8-13 capsule by ity of capsule 00:00: mouth 3 [place] 00 (three) Medical times Branch daily as needed for Cough. albuterol Yes [id number] 2{puff} Inhale 2 [facility] 90 8-13 Puffs ity of mcg/actuati 00:00: every 4 [place] as on inhaler 00 (four) Medical hours as Branch needed for Wheezing or Shortness of Breath. bromphenira 0 Yes [id number] 5mL Take 5 mL [facility] mine-pseudo 8-13 by mouth 4 it y of ephedrine-D 00:00: (four) [place] [facility] (BROMFED 00 times Medical DM) 2-30-10 daily as Bran ch mg/5 mL needed for syrup Congestion /Allergies . benzonatate 0 Yes [id number] 100mg Take 1 [facility] 100 mg 8-13 capsule by ity of capsule 00:00: mouth 3 [place] 00 (three) Medical times Branch daily as needed for Cough. albuterol 0 Yes [id number] 2{puff} Inhale 2 [facility] 90 8-13 Puffs ity of mcg/actuati 00:00: every 4 [place] as on inhaler 00 (four) Medical hours as Branch needed for Wheezing or Shortness of Breath. bromphenira 0 Yes [id number] 5mL Take 5 mL [facility] mine-pseudo 8-13 by mouth 4 it y of ephedrine-D 00:00: (four) [place] [facility] (BROMFED 00 times Medical DM) 2-30-10 daily as [facility] ch mg/5 mL needed for syrup Congestion /Allergies . benzonatate 2020-0 Yes [id number] 100mg Take 1 [facility] 100 mg 8-13 capsule by ity of capsule 00:00: mouth 3 [place] 00 (three) Medical times Branch daily as needed for Cough. albuterol 2020-0 Yes [id number] 2{puff} Inhale 2 [facility] 90 8-13 Puffs ity of mcg/actuati 00:00: every 4 [place] [facility] on inhaler 00 (four) Medical hours as Branch needed for Wheezing or Shortness of Breath. albuterol Yes [id number] 2{puff} Inhale 2 [facility] 90 8-13 Puffs ity of mcg/actuati 00:00: every 4 [place] as on inhaler 00 (four) Medical hours as Branch needed for Wheezing or Shortness of Breath. albuterol Yes [id number] 2{puff} Inhale 2 [facility] 90 8-13 Puffs ity of mcg/actuati 00:00: every 4 [place] as on inhaler 00 (four) Medical hours as Branch needed for Wheezing or Shortness of Breath. albuterol Yes [id number] 2{puff} Inhale 2 [facility] 90 8-13 Puffs ity of mcg/actuati 00:00: every 4 [place] on inhaler 00 (four) Medical hours as Branch needed for Wheezing or Shortness of Breath. albuterol Yes [id number] 2{puff} Inhale 2 [facility] 90 8-13 Puffs ity of mcg/actuati 00:00: every 4 [place] on inhaler 00 (four) Medical hours as Branch needed for Wheezing or Shortness of Breath. albuterol Yes [id number] 2{puff} Inhale 2 [facility] 90 8-13 Puffs ity of mcg/actuati 00:00: every 4 [place] on inhaler 00 (four) Medical hours as Branch needed for Wheezing or Shortness of Breath. albuterol Yes [id number] 2{puff} Inhale 2 [facility] 90 8-13 Puffs ity of mcg/actuati 00:00: every 4 [place] on inhaler 00 (four) Medical hours as Branch needed for Wheezing or Shortness of Breath. albuterol Yes [id number] 2{puff} Inhale 2 [facility] 90 8-13 Puffs ity of mcg/actuati 00:00: every 4 [place] on inhaler 00 (four) Medical hours as Branch needed for Wheezing or Shortness of Breath. albuterol Yes [id number] 2{puff} Inhale 2 [facility] 90 8-13 Puffs ity of mcg/actuati 00:00: every 4 [place] on inhaler 00 (four) Medical hours as Branch needed for Wheezing or Shortness of Breath. albuterol Yes [id number] 2{puff} Inhale 2 [facility] 90 8-13 Puffs ity of mcg/actuati 00:00: every 4 [place] on inhaler 00 (four) Medical hours as Branch needed for Wheezing or Shortness of Breath. albuterol Yes [id number] 2{puff} Inhale 2 [facility] 90 8-13 Puffs ity of mcg/actuati 00:00: every 4 [place] on inhaler 00 (four) Medical hours as Branch needed for Wheezing or Shortness of Breath. albuterol Yes [id number] 2{puff} Inhale 2 [facility] 90 8-13 Puffs ity of mcg/actuati 00:00: every 4 [place] on inhaler 00 (four) Medical hours as Branch needed for Wheezing or Shortness of Breath. albuterol Yes [id number] 2{puff} Inhale 2 [facility] 90 8-13 Puffs ity of mcg/actuati 00:00: every 4 [place] on inhaler 00 (four) Medical hours as Branch needed for Wheezing or Shortness of Breath. albuterol Yes [id number] 2{puff} Inhale 2 [facility] 90 8-13 Puffs ity of mcg/actuati 00:00: every 4 [place] as on inhaler 00 (four) Medical hours as Branch needed for Wheezing or Shortness of Breath. albuterol Yes [id number] 2{puff} Inhale 2 [facility] 90 8-13 Puffs ity of mcg/actuati 00:00: every 4 [place] as on inhaler 00 (four) Medical hours as Branch needed for Wheezing or Shortness of Breath. albuterol 2022- No [id number] 2{puff} Inhale 2 [facility] 90 8-13 01-25 Puffs ity of mcg/actuati 00:00: 00:00 every 4 [place] on inhaler 00 :00 (four) Medical hours as Branch needed for Wheezing or Shortness of Breath. albuterol 2022- No [id number] 2{puff} Inhale 2 [facility] 90 8-13 01-25 Puffs ity of mcg/actuati 00:00: 00:00 every 4 [place] on inhaler 00 :00 (four) Medical hours as Branch needed for Wheezing or Shortness of Breath. albuterol 2022- No [id number] 2{puff} Inhale 2 [facility] 90 8-13 01-25 Puffs ity of mcg/actuati 00:00: 00:00 every 4 [place] on inhaler 00 :00 (four) Medical hours as Branch needed for Wheezing or Shortness of Breath. bromphenira 2021- No [id number] 5mL Take 5 mL [facility] mine-pseudo 8-13 12-08 by mouth 4 i ty of ephedrine-D 00:00: 00:00 (four) [place] [facility] M (BROMFED 00 :00 times Medical DM) 2-30-10 daily as [facility] ch mg/5 mL needed for syrup Congestion /Allergies . benzonatate 2021- No [id number] 100mg Take 1 [facility] 100 mg 8- 12-08 capsule by ity of capsule 00:00: 00:00 mouth 3 [place] 00 :00 (three) Medical times Branch daily as needed for Cough. bromphenira 2021- No [id number] 5mL Take 5 mL [facility] mine-pseudo 8-13 1208 by mouth 4 i ty of ephedrine-D 00:00: 00:00 (four) [place] [facility] M (BROMFED 00 :00 times Medical DM) 2-30-10 daily as [facility] ch mg/5 mL needed for syrup Congestion /Allergies . benzonatate 2021- No [id number] 100mg Take 1 [facility] 100 mg 8-13 12-08 capsule by ity of capsule 00:00: 00:00 mouth 3 [place] 00 :00 (three) Medical times Branch daily as needed for Cough. bromphenira 2021- No [id number] 5mL Take 5 mL [facility] mine-pseudo 8-13 12-08 by mouth 4 i ty of ephedrine-D 00:00: 00:00 (four) [place] [facility] M (BROMFED 00 :00 times Medical DM) 2-30-10 daily as [facility] ch mg/5 mL needed for syrup Congestion /Allergies . benzonatate 2020-2021- No [id number] 100mg Take 1 [facility] 100 mg 8-13 12-08 capsule by ity of capsule 00:00: 00:00 mouth 3 [place] 00 :00 (three) Medical times Branch daily as needed for Cough. bromphenira 2021- No [id number] 5mL Take 5 mL [facility] mine-pseudo 8-13 12-08 by mouth 4 i ty of ephedrine-D 00:00: 00:00 (four) [place] [facility] M (BROMFED 00 :00 times Medical DM) 2-30-10 daily as [facility] ch mg/5 mL needed for syrup Congestion /Allergies . benzonatate 2021- No [id number] 100mg Take 1 [facility] 100 mg 8-13 12-08 capsule by ity of capsule 00:00: 00:00 mouth 3 [place] 00 :00 (three) Medical times Branch daily as needed for Cough. bromphenira 2021- No [id number] 5mL Take 5 mL [facility] mine-pseudo 8-13 12-08 by mouth 4 i ty of ephedrine-D 00:00: 00:00 (four) [place] [facility] M (BROMFED 00 :00 times Medical DM) 2-30-10 daily as Bran ch mg/5 mL needed for syrup Congestion /Allergies . benzonatate 2021- No [id number] 100mg Take 1 [facility] 100 mg 8-13 12-08 capsule by ity of capsule 00:00: 00:00 mouth 3 [place] 00 :00 (three) Medical times Branch daily as needed for Cough. bromphenira 2021- No [id number] 5mL Take 5 mL [facility] mine-pseudo 8-13 12-08 by mouth 4 i ty of ephedrine-D 00:00: 00:00 (four) [place] [facility] M (BROMFED 00 :00 times Medical DM) 2-30-10 daily as [facility] ch mg/5 mL needed for syrup Congestion /Allergies . benzonatate 2020-2021- No [id number] 100mg Take 1 [facility] 100 mg 8-13 12-08 capsule by ity of capsule 00:00: 00:00 mouth 3 [place] 00 :00 (three) Medical times Branch daily as needed for Cough. ATORVASTATI 2021- No [id number] 80mg TAKE 1 [facility] N 80 mg 5-21 04-14 TABLET BY ity of tablet 00:00: 00:00 MOUTH AT [place] 00 :00 BEDTIME Medical Branch ATORVASTATI 2020-0 2022- No [id number] 80mg TAKE 1 [facility] 80 mg 5- 04-14 TABLET BY [facility] of tablet 00:00: 00:00 MOUTH AT [place] 00 :00 BEDTIME [facility] pregabalin 2020- Yes [id number] 75mg Take 1 [facility] ([facility]) 75 0-28 capsule by [facility] [place] capsule [place]: [place] (two[place] [facility] daily. pregabalin 2019- Yes [id number] 75mg Take 1 [facility] ([facility]) 75 0-28 capsule by [facility] capsule [place]: [place] (two) [facility] daily. pregabalin 2019- Yes [id number] 75mg Take 1 [facility] ([facility]) 75 0-28 capsule by [facility] capsule [place]: [place] (two) [facility] daily. pregabalin 2019- Yes [id number] 75mg Take 1 [facility] ([facility]) 75 0-28 capsule by [facility] mg capsule 00:[facility]: mouth [place] (two) [facility] daily. pregabalin 2019- Yes [id number] 75mg Take 1 [facility] ([facility]) 75 0-28 capsule by [facility] mg capsule 00:[place]: [place] (two) [facility] daily. pregabalin 2019- Yes [id number] 75mg Take 1 [facility] ([facility]) 75 0-28 capsule by [facility] mg capsule 00:[place]: [place] (two) [facility] daily. pregabalin 2019- Yes [id number] 75mg Take 1 [facility] ([facility]) 75 0-28 capsule by [facility] mg capsule 00:00: mouth [place] (two) [facility] daily. pregabalin 2019- Yes [id number] 75mg Take 1 [facility] ([facility]) 75 0-28 capsule by [facility] mg capsule 00:00: mouth [place] (two) [facility] daily. pregabalin 2019- Yes [id number] 75mg Take 1 [facility] ([facility]) 75 0-28 capsule by [facility] mg capsule 00:00: mouth [place] (two) [facility] daily. pregabalin 2020-1 Yes [id number] 75mg Take 1 [facility] ([facility]) 75 0-28 capsule by [facility] mg capsule 00:00: mouth [place] (two) [facility] daily. pregabalin 2020-1 Yes [id number] 75mg Take 1 [facility] ([facility]) 75 0-28 capsule by [facility] mg capsule 00:00: mouth [place] (two) [facility] daily. pregabalin 2020- Yes [id number] 75mg Take 1 [facility] ([facility]) 75 0-28 capsule by [facility] mg capsule 00:00: mouth [place] (two) [facility] daily. pregabalin 2020-1 Yes [id number] 75mg Take 1 [facility] ([facility]) 75 0-28 capsule by [facility] mg capsule 00:00: mouth [place] (two) [facility] daily. pregabalin 2020- Yes [id number] 75mg Take 1 [facility] ([facility]) 75 0-28 capsule by [facility] mg capsule 00:00: mouth [place] (two) [facility] daily. pregabalin 2020- Yes [id number] 75mg Take 1 [facility] ([facility]) 75 0-28 capsule by [facility] mg capsule 00:00: mouth [place] (two) [facility] daily. pregabalin 2020-1 Yes [id number] 75mg Take 1 [facility] ([facility]) 75 0-28 capsule by [facility] mg capsule 00:00: mouth [place] (two) [facility] daily. pregabalin 2020-1 Yes [id number] 75mg Take 1 [facility] ([facility]) 75 0-28 capsule by [facility] mg capsule 00:00: mouth [place] (two) [facility] times [facility] daily. pregabalin 2020-1 Yes [id number] 75mg Take 1 [facility] ([facility]) 75 0-28 capsule by [facility] mg capsule 00:00: mouth [place] (two) [facility] daily. pregabalin 2020-1 Yes [id number] 75mg Take 1 [facility] ([facility]) 75 0-28 capsule by [facility] mg capsule 00:00: mouth [place] (two) [facility] daily. pregabalin 2020-1 Yes [id number] 75mg Take 1 [facility] ([facility]) 75 0-28 capsule by [facility] mg capsule 00:00: mouth [place] 00 (two) [facility] times [facility] daily. pregabalin 2020-1 Yes [id number] 75mg Take 1 [facility] ([facility]) 75 0-28 capsule by [facility] mg capsule 00:00: mouth [place] (two) [facility] daily. pregabalin 2020- Yes [id number] 75mg Take 1 [facility] ([facility]) 75 0-28 capsule by [facility] mg capsule 00:00: mouth [place] 00 (two) [facility] daily. pregabalin 2020-1 Yes [id number] 75mg Take 1 [facility] ([facility]) 75 0-28 capsule by [facility] mg capsule 00:00: mouth [place] (two) [facility] daily. pregabalin 2020- Yes [id number] 75mg Take 1 [facility] ([facility]) 75 0-28 capsule by [facility] mg capsule 00:00: mouth [place] (two) [facility] times [facility] daily. pregabalin 2020- Yes [id number] 75mg Take 1 [facility] ([facility]) 75 0-28 capsule by [facility] mg capsule 00:00: mouth [place] (two) [facility] daily. pregabalin 2020-1 Yes [id number] 75mg Take 1 [facility] ([facility]) 75 0-28 capsule by [facility] mg capsule 00:00: mouth [place] (two) [facility] daily. pregabalin 2020-1 Yes [id number] 75mg Take 1 [facility] ([facility]) 75 0-28 capsule by [facility] mg capsule 00:00: mouth [place] (two) [facility] daily. pregabalin 2020-1 Yes [id number] 75mg Take 1 [facility] ([facility]) 75 0-28 capsule by [facility] mg capsule 00:00: mouth [place] (two) [facility] daily. pregabalin 2020-1 Yes [id number] 75mg Take 1 [facility] ([facility]) 75 0-28 capsule by [facility] mg capsule 00:00: mouth [place] 00 (two) [facility] daily. pregabalin 2020-1 Yes [id number] 75mg Take 1 [facility] ([facility]) 75 0-28 capsule by [facility] mg capsule 00:00: mouth [place] 00 (two) [facility] daily. pregabalin 2020-1 Yes [id number] 75mg Take 1 [facility] ([facility]) 75 0-28 capsule by [facility] mg capsule 00:00: mouth [place] 00 (two) [facility] times [facility] daily. pregabalin 2020- Yes [id number] 75mg Take 1 [facility] ([facility]) 75 0-28 capsule by [facility] mg capsule 00:00: mouth 2 [place] 00 (two) [facility] times [facility] daily. pregabalin 2020-1 Yes [id number] 75mg Take 1 [facility] ([facility]) 75 0-28 capsule by [facility] mg capsule 00:00: mouth 2 [place] 00 (two) [facility] daily. pregabalin 2020- Yes [id number] 75mg Take 1 [facility] ([facility]) 75 0-28 capsule by [facility] mg capsule 00:00: mouth 2 [place] 00 (two) [facility] daily. pregabalin 2020- Yes [id number] 75mg Take 1 [facility] ([facility]) 75 0-28 capsule by [facility] mg capsule 00:00: mouth 2 [place] 00 (two) [facility] daily. pregabalin 2020-1 Yes [id number] 75mg Take 1 [facility] ([facility]) 75 0-28 capsule by [facility] mg capsule 00:00: mouth 2 [place] 00 (two) [facility] times [facility] daily. pregabalin 2020-1 Yes [id number] 75mg Take 1 [facility] ([facility]) 75 0-28 capsule by [facility] mg capsule 00:00: mouth 2 [place] 00 (two) [facility] times [facility] daily. pregabalin 2020-1 Yes [id number] 75mg Take 1 [facility] ([facility]) 75 0-28 capsule by [facility] mg capsule 00:00: mouth 2 [place] 00 (two) [facility] times [facility] daily. pregabalin 2020-1 Yes [id number] 75mg Take 1 [facility] ([facility]) 75 0-28 capsule by [facility] mg capsule 00:00: mouth 2 [place] 00 (two) [facility] times [facility] daily. pregabalin 2019-10 Yes [id number] 75mg Take 1 [facility] ([facility]) 75 0-28 capsule by [facility] mg capsule 00:00: mouth 2 [place] 00 (two) [facility] times [facility] daily. pregabalin 2019-10 Yes [id number] 75mg Take 1 [facility] ([facility]) 75 0-28 capsule by [facility] mg capsule 00:00: mouth 2 [place] 00 (two) [facility] times [facility] daily. pregabalin 2019-10 Yes [id number] 75mg Take 1 [facility] ([facility]) 75 0-28 capsule by [facility] mg capsule 00:00: mouth 2 [place] 00 (two) [facility] times [facility] daily. pregabalin 2019-10- No [id number] 75mg Take 1 [facility] ([facility]) 75 0-28 02-02 capsule by i ty of mg capsule 00:00: 00:00 mouth 2 [place] 00 :00 (two) [facility] times [facility] daily. pregabalin 2019-10- No [id number] 75mg Take 1 [facility] ([facility]) 75 0-28 02-02 capsule by i ty of mg capsule 00:00: 00:00 mouth 2 [place] 00 :00 (two) [facility] times [facility] daily. multivitami 2020-0 Yes [id number] 1{capsu Take 1 [facility] n capsule 9-10 le} capsule by [facility]y of 00:00: mouth [place] 00 daily. [facility] calcium-mag 2020-0 Yes [id number] Take as [facility] nesium-zinc 9-10 directed ity of 333-133-8.3 00:00: for daily [place] mg Tab 00 dose. [facility] multivitami 2020-0 Yes [id number] 1{capsu Take 1 [facility] n capsule 9-10 le} capsule by [facility] of 00:00: mouth [place] 00 daily. [facility] calcium-mag 2020-0 Yes [id number] Take as [facility] nesium-zinc 9-10 directed ity of 333-133-8.3 00:00: for daily [place] mg Tab 00 dose. [facility] multivitami 2020-0 Yes [id number] 1{capsu Take 1 [facility] n capsule 9-10 le} capsule by [facility] of 00:00: mouth [place] 00 daily. [facility] calcium-mag 2020-0 Yes [id number] Take as [facility] nesium-zinc 9-10 directed ity of 333-133-8.3 00:00: for daily [place] mg Tab 00 dose. [facility] multivitami 2020-0 Yes [id number] 1{capsu Take 1 [facility] n capsule 9-10 le} capsule by ity of 00:00: mouth [place] 00 daily. [facility] calcium-mag 2020-0 Yes [id number] Take as [facility] nesium-zinc 9-10 directed ity of 333-133-8.3 00:00: for daily [place] mg Tab 00 dose. [facility] multivitami 2020-0 Yes [id number] 1{capsu Take 1 [facility] n capsule 9-10 le} capsule by ity of 00:00: mouth [place] 00 daily. [facility] calcium-mag 2020-0 Yes [id number] Take as [facility] nesium-zinc 9-10 directed ity of 333-133-8.3 00:00: for daily [place] mg Tab 00 dose. [facility] multivitami 2020-0 Yes [id number] 1{capsu Take 1 [facility] n capsule 9-10 le} capsule by ity of 00:00: mouth [place] 00 daily. [facility] calcium-mag 2020-0 Yes [id number] Take as [facility] nesium-zinc 9-10 directed ity of 333-133-8.3 00:00: for daily [place] mg Tab 00 dose. [facility] multivitami 2020-0 Yes [id number] 1{capsu Take 1 [facility] n capsule 9-10 le} capsule by ity of 00:00: mouth [place] 00 daily. [facility] calcium-mag 2020-0 Yes [id number] Take as [facility] nesium-zinc 9-10 directed ity of 333-133-8.3 00:00: for daily [place] mg Tab 00 dose. [facility] multivitami 2020-0 Yes [id number] 1{capsu Take 1 [facility] n capsule 9-10 le} capsule by ity of 00:00: mouth [place] 00 daily. [facility] calcium-mag 2020-0 Yes [id number] Take as [facility] nesium-zinc 9-10 directed ity of 333-133-8.3 00:00: for daily [place] mg Tab 00 dose. [facility] multivitami 2020-0 Yes [id number] 1{capsu Take 1 [facility] n capsule 9-10 le} capsule by ity of 00:00: mouth [place] 00 daily. [facility] calcium-mag 2020-0 Yes [id number] Take as [facility] nesium-zinc 9-10 directed ity of 333-133-8.3 00:00: for daily [place] mg Tab 00 dose. [facility] multivitami 2020-0 Yes [id number] 1{capsu Take 1 [facility] n capsule 9-10 le} capsule by ity of 00:00: mouth [place] 00 daily. [facility] calcium-mag 2020-0 Yes [id number] Take as [facility] nesium-zinc 9-10 directed ity of 333-133-8.3 00:00: for daily [place] mg Tab 00 dose. [facility] multivitami 2020-0 Yes [id number] 1{capsu Take 1 [facility] n capsule 9-10 le} capsule by ity of 00:00: mouth [place] 00 daily. [facility] calcium-mag 2020-0 Yes [id number] Take as [facility] nesium-zinc 9-10 directed ity of 333-133-8.3 00:00: for daily [place] mg Tab 00 dose. [facility] multivitami 2020-0 Yes [id number] 1{capsu Take 1 [facility] n capsule 9-10 le} capsule by ity of 00:00: mouth [place] 00 daily. [facility] calcium-mag 2020-0 Yes [id number] Take as [facility] nesium-zinc 9-10 directed ity of 333-133-8.3 00:00: for daily [place] mg Tab 00 dose. [facility] multivitami 2020-0 Yes [id number] 1{capsu Take 1 [facility] n capsule 9-10 le} capsule by ity of 00:00: mouth [place] 00 daily. [facility] calcium-mag 2020-0 Yes [id number] Take as [facility] nesium-zinc 9-10 directed ity of 333-133-8.3 00:00: for daily [place] mg Tab 00 dose. [facility] multivitami 2020-0 Yes [id number] 1{capsu Take 1 [facility] n capsule 9-10 le} capsule by ity of 00:00: mouth [place] 00 daily. [facility] calcium-mag 2020-0 Yes [id number] Take as [facility] nesium-zinc 9-10 directed ity of 333-133-8.3 00:00: for daily [place] mg Tab 00 dose. [facility] multivitami 2020-0 Yes [id number] 1{capsu Take 1 [facility] n capsule 9-10 le} capsule by ity of 00:00: mouth [place] 00 daily. [facility] calcium-mag 2020-0 Yes [id number] Take as [facility] nesium-zinc 9-10 directed ity of 333-133-8.3 00:00: for daily [place] mg Tab 00 dose. [facility] multivitami 2020-0 Yes [id number] 1{capsu Take 1 [facility] n capsule 9-10 le} capsule by ity of 00:00: mouth [place] 00 daily. [facility] calcium-mag 2020-0 Yes [id number] Take as [facility] nesium-zinc 9-10 directed ity of 333-133-8.3 00:00: for daily [place] mg Tab 00 dose. [facility] multivitami 2020-0 Yes [id number] 1{capsu Take 1 [facility] n capsule 9-10 le} capsule by ity of 00:00: mouth [place] 00 daily. [facility] calcium-mag 2020-0 Yes [id number] Take as [facility] nesium-zinc 9-10 directed ity of 333-133-8.3 00:00: for daily [place] mg Tab 00 dose. [facility] multivitami 2020-0 Yes [id number] 1{capsu Take 1 [facility] n capsule 9-10 le} capsule by [facility]y of 00:00: mouth [place] 00 daily. [facility] calcium-mag 2020-0 Yes [id number] Take as [facility] nesium-zinc 9-10 directed ity of 333-133-8.3 00:00: for daily [place] mg Tab 00 dose. [facility] multivitami 2020-0 Yes [id number] 1{capsu Take 1 [facility] n capsule 9-10 le} capsule by ity of 00:00: mouth [place] 00 daily. [facility] calcium-mag 2020-0 Yes [id number] Take as [facility] nesium-zinc 9-10 directed ity of 333-133-8.3 00:00: for daily [place] mg Tab 00 dose. [facility] multivitami 2020-0 Yes [id number] 1{capsu Take 1 [facility] n capsule 9-10 le} capsule by [facility]y of 00:00: mouth [place] 00 daily. [facility] calcium-mag 2020-0 Yes [id number] Take as [facility] nesium-zinc 9-10 directed ity of 333-133-8.3 00:00: for daily [place] mg Tab 00 dose. [facility] multivitami 2020-0 Yes [id number] 1{capsu Take 1 [facility] n capsule 9-10 le} capsule by ity of 00:00: mouth [place] 00 daily. [facility] calcium-mag 2020-0 Yes [id number] Take as [facility] nesium-zinc 9-10 directed ity of 333-133-8.3 00:00: for daily [place] mg Tab 00 dose. [facility] multivitami 2020-0 Yes [id number] 1{capsu Take 1 [facility] n capsule 9-10 le} capsule by ity of 00:00: mouth [place] 00 daily. [facility] calcium-mag 2020-0 Yes [id number] Take as [facility] nesium-zinc 9-10 directed ity of 333-133-8.3 00:00: for daily [place] mg Tab 00 dose. [facility] multivitami 2020-0 Yes [id number] 1{capsu Take 1 [facility] n capsule 9-10 le} capsule by ity of 00:00: mouth [place] 00 daily. [facility] calcium-mag 2020-0 Yes [id number] Take as [facility] nesium-zinc 9-10 directed ity of 333-133-8.3 00:00: for daily [place] mg Tab 00 dose. [facility] multivitami 2020-0 Yes [id number] 1{capsu Take 1 [facility] n capsule 9-10 le} capsule by ity of 00:00: mouth [place] 00 daily. [facility] calcium-mag 2020-0 Yes [id number] Take as [facility] nesium-zinc 9-10 directed ity of 333-133-8.3 00:00: for daily [place] mg Tab 00 dose. [facility] multivitami 2020-0 Yes [id number] 1{capsu Take 1 [facility] n capsule 9-10 le} capsule by ity of 00:00: mouth [place] 00 daily. [facility] calcium-mag 2020-0 Yes [id number] Take as [facility] nesium-zinc 9-10 directed ity of 333-133-8.3 00:00: for daily [place] mg Tab 00 dose. [facility] multivitami 2020-0 Yes [id number] 1{capsu Take 1 [facility] n capsule 9-10 le} capsule by ity of 00:00: mouth [place] 00 daily. [facility] calcium-mag 2020-0 Yes [id number] Take as [facility] nesium-zinc 9-10 directed ity of 333-133-8.3 00:00: for daily [place] mg Tab 00 dose. [facility] multivitami 2020-0 Yes [id number] 1{capsu Take 1 [facility] n capsule 9-10 le} capsule by ity of 00:00: mouth [place] 00 daily. [facility] calcium-mag 2020-0 Yes [id number] Take as [facility] nesium-zinc 9-10 directed ity of 333-133-8.3 00:00: for daily [place] mg Tab 00 dose. [facility] multivitami 2020-0 Yes [id number] 1{capsu Take 1 [facility] n capsule 9-10 le} capsule by ity of 00:00: mouth [place] 00 daily. [facility] calcium-mag 2020-0 Yes [id number] Take as [facility] nesium-zinc 9-10 directed ity of 333-133-8.3 00:00: for daily [place] mg Tab 00 dose. [facility] multivitami 2020-0 Yes [id number] 1{capsu Take 1 [facility] n capsule 9-10 le} capsule by ity of 00:00: mouth [place] 00 daily. [facility] calcium-mag 2020-0 Yes [id number] Take as [facility] nesium-zinc 9-10 directed ity of 333-133-8.3 00:00: for daily [place] mg Tab 00 dose. [facility] multivitami 2020-0 Yes [id number] 1{capsu Take 1 [facility] n capsule 9-10 le} capsule by ity of 00:00: mouth [place] 00 daily. [facility] calcium-mag 2020-0 Yes [id number] Take as [facility] nesium-zinc 9-10 directed ity of 333-133-8.3 00:00: for daily [place] mg Tab 00 dose. [facility] multivitami 2020-0 Yes [id number] 1{capsu Take 1 [facility] n capsule 9-10 le} capsule by ity of 00:00: mouth [place] 00 daily. [facility] calcium-mag 2020-0 Yes [id number] Take as [facility] nesium-zinc 9-10 directed ity of 333-133-8.3 00:00: for daily [place] mg Tab 00 dose. [facility] multivitami 2020-0 Yes [id number] 1{capsu Take 1 [facility] n capsule 9-10 le} capsule by ity of 00:00: mouth [place] 00 daily. [facility] calcium-mag 2020-0 Yes [id number] Take as [facility] nesium-zinc 9-10 directed ity of 333-133-8.3 00:00: for daily [place] mg Tab 00 dose. [facility] multivitami 2020-0 Yes [id number] 1{capsu Take 1 [facility] n capsule 9-10 le} capsule by ity of 00:00: mouth [place] 00 daily. [facility] calcium-mag 2020-0 Yes [id number] Take as [facility] nesium-zinc 9-10 directed ity of 333-133-8.3 00:00: for daily [place] mg Tab 00 dose. [facility] multivitami 2020-0 Yes [id number] 1{capsu Take 1 [facility] n capsule 9-10 le} capsule by ity of 00:00: mouth [place] 00 daily. [facility] calcium-mag 2020-0 Yes [id number] Take as [facility] nesium-zinc 9-10 directed ity of 333-133-8.3 00:00: for daily [place] mg Tab 00 dose. [facility] multivitami 2020-0 Yes [id number] 1{capsu Take 1 [facility] n capsule 9-10 le} capsule by ity of 00:00: mouth [place] 00 daily. [facility] calcium-mag 2020-0 Yes [id number] Take as [facility] nesium-zinc 9-10 directed ity of 333-133-8.3 00:00: for daily [place] mg Tab 00 dose. [facility] multivitami 2020-0 Yes [id number] 1{capsu Take 1 [facility] n capsule 9-10 le} capsule by ity of 00:00: mouth [place] 00 daily. [facility] calcium-mag 2020-0 Yes [id number] Take as [facility] nesium-zinc 9-10 directed ity of 333-133-8.3 00:00: for daily [place] mg Tab 00 dose. [facility] multivitami 2020-0 Yes [id number] 1{capsu Take 1 [facility] n capsule 9-10 le} capsule by ity of 00:00: mouth [place] 00 daily. [facility] calcium-mag 2020-0 Yes [id number] Take as [facility] nesium-zinc 9-10 directed ity of 333-133-8.3 00:00: for daily [place] mg Tab 00 dose. [facility] multivitami 2020-0 Yes [id number] 1{capsu Take 1 [facility] n capsule 9-10 le} capsule by ity of 00:00: mouth [place] 00 daily. [facility] multivitami 2020-0 Yes [id number] 1{capsu Take 1 [facility] n capsule 9-10 le} capsule by ity of 00:00: mouth [place] 00 daily. [facility] multivitami 2020-0 Yes [id number] 1{capsu Take 1 [facility] n capsule 9-10 le} capsule by ity of 00:00: mouth [place] 00 daily. [facility] multivitami 2020-0 Yes [id number] 1{capsu Take 1 [facility] n capsule 9-10 le} capsule by ity of 00:00: mouth [place] 00 daily. [facility] multivitami 2020-0 Yes [id number] 1{capsu Take 1 [facility] n capsule 9-10 le} capsule by ity of 00:00: mouth [place] 00 daily. [facility] multivitami 2020-0 Yes [id number] 1{capsu Take 1 [facility] n capsule 9-10 le} capsule by ity of 00:00: mouth [place] 00 daily. [facility] multivitami 2020-0 Yes [id number] 1{capsu Take 1 [facility] n capsule 9-10 le} capsule by ity of 00:00: mouth [place] 00 daily. [facility] multivitami 2020-0 Yes [id number] 1{capsu Take 1 [facility] n capsule 9-10 le} capsule by ity of 00:00: mouth [place] 00 daily. [facility] multivitami 2020-0 Yes [id number] 1{capsu Take 1 [facility] n capsule 9-10 le} capsule by ity of 00:00: mouth [place] 00 daily. [facility] multivitami 2020-0 Yes [id number] 1{capsu Take 1 [facility] n capsule 9-10 le} capsule by [facility]y of 00:00: mouth [place] 00 daily. [facility] multivitami 2020-0 Yes [id number] 1{capsu Take 1 [facility] n capsule 9-10 le} capsule by ity of 00:00: mouth [place] 00 daily. [facility] multivitami 2020-0 Yes [id number] 1{capsu Take 1 [facility] n capsule 9-10 le} capsule by ity of 00:00: mouth [place] 00 daily. [facility] multivitami 2020-0 Yes [id number] 1{capsu Take 1 [facility] n capsule 9-10 le} capsule by ity of 00:00: mouth [place] 00 daily. [facility] multivitami 2020-0 Yes [id number] 1{capsu Take 1 [facility] n capsule 9-10 le} capsule by ity of 00:00: mouth [place] 00 daily. [facility] multivitami 2020-0 Yes [id number] 1{capsu Take 1 [facility] n capsule 9-10 le} capsule by ity of 00:00: mouth [place] 00 daily. [facility] multivitami 2020-0 Yes [id number] 1{capsu Take 1 [facility] n capsule 9-10 le} capsule by ity of 00:00: mouth [place] 00 daily. [facility] multivitami 2020-0 Yes [id number] 1{capsu Take 1 [facility] n capsule 9-10 le} capsule by [facility]y of 00:00: mouth [place] 00 daily. [facility] multivitami 2020-0 Yes [id number] 1{capsu Take 1 [facility] n capsule 9-10 le} capsule by [facility]y of 00:00: mouth [place] 00 daily. [facility] multivitami 2020-0 Yes [id number] 1{capsu Take 1 [facility] n capsule 9-10 le} capsule by ity of 00:00: mouth [place] 00 daily. [facility] multivitami 2020-0 Yes [id number] 1{capsu Take 1 [facility] n capsule 9-10 le} capsule by [facility]y of 00:00: mouth [place] 00 daily. [facility] multivitami 2020-0 Yes [id number] 1{capsu Take 1 [facility] n capsule 9-10 le} capsule by ity of 00:00: mouth [place] 00 daily. [facility] multivitami 2020-0 Yes [id number] 1{capsu Take 1 [facility] n capsule 9-10 le} capsule by [facility]y of 00:00: mouth [place] 00 daily. [facility] multivitami 2020-0 Yes [id number] 1{capsu Take 1 [facility] n capsule 9-10 le} capsule by [facility]y of 00:00: mouth [place] 00 daily. [facility] multivitami 2020-0 Yes [id number] 1{capsu Take 1 [facility] n capsule 9-10 le} capsule by [facility]y of 00:00: mouth [place] 00 daily. [facility] multivitami 2020-0 Yes [id number] 1{capsu Take 1 [facility] n capsule 9-10 le} capsule by ity of 00:00: mouth [place] 00 daily. [facility] calcium-mag 2019-0 2022- No [id number] Take as [facility] nesium-zinc 9-11-01 directed ity of 333-133-8.3 00:00: 00:00 for daily [place] mg Tab 00 :00 dose. [facility] calcium-mag 2019-0 2022- No [id number] Take as [facility] nesium-zinc -11-01 directed ity of 333-133-8.3 00:00: 00:00 for daily [place] mg Tab 00 :00 dose. [facility] calcium-mag 2019-0 2022- No [id number] Take as [facility] nesium-zinc -11-01 directed ity of 333-133-8.3 00:00: 00:00 for daily [place] mg Tab 00 :00 dose. [facility] esomeprazol 2020-0 Yes Univer s e 40 mg 4-22 ity of capsule 00:00: [place] 00 [facility] esomeprazol 2020-0 Yes Univer s e 40 mg 4-22 ity of capsule 00:00: [place] 00 [facility] esomeprazol 2020-0 Yes Un[facility] e 40 mg 4-22 ity of capsule 00:00: [place] 00 [facility] esomeprazol 2020-0 Yes Un[facility] e 40 mg 4-22 ity of capsule 00:00: [place] 00 [facility] esomeprazol 2020-0 Yes Un[facility] e 40 mg 4-22 ity of capsule 00:00: [place] 00 [facility] esomeprazol 2020-0 Yes [facility] 40 mg 4-22 ity of capsule 00:00: [place] 00 [facility] esomeprazol 2020-0 Yes Un[facility] e 40 mg 4-22 ity of capsule 00:00: [place] 00 [facility] esomeprazol 2020-0 Yes Un[facility] e 40 mg 4-22 ity of capsule 00:00: [place] 00 [facility] esomeprazol 2020-0 Yes Univer s e 40 mg 4-22 ity of capsule 00:00: [place] [facility] esomeprazol 2020-0 Yes Univer s e 40 mg 4-22 ity of capsule 00:00: [place] [facility] esomeprazol 2020-0 Yes Un[facility] e 40 mg 4-22 ity of capsule 00:00: [place] [facility] esomeprazol 2020-0 Yes Univer s e 40 mg 4-22 ity of capsule 00:00: [place] [facility] esomeprazol 2020-0 Yes Univer s e 40 mg 4-22 ity of capsule 00:00: [place] [address] [facility] esomeprazol 2020-0 Yes Univer s e 40 mg 4-22 ity of capsule 00:00: [place] [facility] esomeprazol 2020-0 Yes Univer s e 40 mg 4-22 ity of capsule 00:00: [place] [facility] esomeprazol 2020-0 Yes Univer [facility] e 40 mg 4-22 ity of capsule 00:00: [place] [facility] esomeprazol 2020-0 Yes Un[facility] e 40 mg 4-22 ity of capsule 00:00: [place] [facility] esomeprazol 2020-0 Yes Univer [facility] e 40 mg 4-22 ity of capsule 00:00: [place] [facility] esomeprazol 2020-0 Yes Univer [facility] e 40 mg 4-22 ity of capsule 00:00: [place] [facility] esomeprazol 2020-0 Yes Univer [facility] e 40 mg 4-22 ity of capsule 00:00: [place] [facility] esomeprazol 2020-0 Yes Univer [facility] e 40 mg 4-22 ity of capsule 00:00: [place] 00 [facility] esomeprazol 2020-0 Yes Un[facility] e 40 mg 4-22 ity of capsule 00:00: [place] 00 [facility] esomeprazol 2020-0 Yes Un[facility] e 40 mg 4-22 ity of capsule 00:00: [place] [address] [facility] esomeprazol 2020-0 Yes Univer s e 40 mg 4-22 ity of capsule 00:00: [place] 00 [facility] esomeprazol 2020-0 Yes Univer [facility] e 40 mg 4-22 ity of capsule 00:00: [facility] esomeprazol 2020-0 Yes Univer s e 40 mg 4-22 ity of capsule 00:00: [facility] esomeprazol 2020-0 Yes Un[facility] e 40 mg 4-22 ity of capsule 00:00: [facility] esomeprazol 2020-0 Yes Univer [facility] e 40 mg 4-22 ity of capsule 00:00: [facility] esomeprazol 2020-0 Yes Un[facility] e 40 mg 4-22 ity of capsule 00:00: [facility] esomeprazol 2020-0 Yes Univer [facility] e 40 mg 4-22 ity of capsule 00:00: [facility] esomeprazol 2020-0 Yes Univer [facility] e 40 mg 4-22 ity of capsule 00:00: [facility] esomeprazol 2020-0 Yes Un[facility] e 40 mg 4-22 ity of capsule 00:00: [facility] esomeprazol 2020-0 Yes Un[facility] e 40 mg 4-22 ity of capsule 00:00: [facility] esomeprazol 2020-0 Yes Un[facility] e 40 mg 4-22 ity of capsule 00:00: [facility] esomeprazol 2020-0 Yes Un[facility] e 40 mg 4-22 ity of capsule 00:00: [facility] esomeprazol 2020-0 Yes Un[facility] e 40 mg 4-22 ity of capsule 00:00: [facility] esomeprazol 2020-0 Yes Un[facility] e 40 mg 4-22 ity of capsule 00:00: [facility] esomeprazol 2020-0 Yes 40mg Take 40 mg [facility] 40 mg 4-22 by mouth ity of capsule 00:00: in the [place] 00 morning Medical and 40 mg Branch in the evening. esomeprazol 2020-0 Yes 40mg Take 40 mg [facility] 40 mg 4-22 by mouth ity of capsule 00:00: in the [place] 00 morning Medical and 40 mg Branch in the evening. esomeprazol 2020-0 Yes 40mg Take 40 mg [facility] 40 mg 4-22 by mouth ity of capsule 00:00: in the [place] morning Medical and 40 mg Branch in the evening. esomeprazol 2020-0 Yes 40mg Take 40 mg [facility] 40 mg 4-22 by mouth ity of capsule 00:00: in the [place] morning Medical and 40 mg Branch in the evening. esomeprazol 2020-0 Yes 40mg Take 40 mg [facility] 40 mg 4-22 by mouth ity of capsule 00:00: in the [place] morning Medical and 40 mg Branch in the evening. esomeprazol 2020-0 Yes 40mg Take 40 mg [facility] 40 mg 4-22 by mouth ity of capsule 00:00: in the [place] morning Medical and 40 mg Branch in the evening. esomeprazol 2020-0 Yes 40mg Take 40 mg [facility] 40 mg 4-22 by mouth ity of capsule 00:00: in the [place] morning Medical and 40 mg Branch in the evening. esomeprazol 2020-0 Yes 40mg Take 40 mg [facility] 40 mg 4-22 by mouth ity of capsule 00:00: in the [place] morning Medical and 40 mg Branch in the evening. esomeprazol 2020-0 Yes 40mg Take 40 mg [facility] 40 mg 4-22 by mouth ity of capsule 00:00: in the [place] morning Medical and 40 mg Branch in the evening. esomeprazol 2020-0 Yes 40mg Take 40 mg [facility] 40 mg 4-22 by mouth ity of capsule 00:00: in the [place] morning Medical and 40 mg Branch in the evening. esomeprazol 2020-0 Yes 40mg Take 40 mg [facility] 40 mg 4-22 by mouth ity of capsule 00:00: in the [place] morning Medical and 40 mg Branch in the evening. esomeprazol 2020-0 Yes 40mg Take 40 mg [facility] 40 mg 4-22 by mouth ity of capsule 00:00: in the [place] morning Medical and 40 mg Branch in the evening. esomeprazol 2020-0 Yes 40mg Take 40 mg [facility] 40 mg 4-22 by mouth ity of capsule 00:00: in the [place] morning Medical and 40 mg Branch in the evening. esomeprazol 2020-0 Yes 40mg Take 40 mg [facility] 40 mg 4-22 by mouth ity of capsule 00:00: in the [place] 00 morning Medical and 40 mg Branch in the evening. esomeprazol 2020-0 Yes 40mg Take 40 mg [facility] 40 mg 4-22 by mouth ity of capsule 00:00: in the [place] 00 morning Medical and 40 mg Branch in the evening. esomeprazol 2020-0 Yes 40mg Take 40 mg [facility] 40 mg 4-22 by mouth ity of capsule 00:00: in the [place] morning Medical and 40 mg Branch in the evening. esomeprazol 2020-0 Yes 40mg Take 40 mg [facility] 40 mg 4-22 by mouth ity of capsule 00:00: in the [place] morning Medical and 40 mg Branch in the evening. esomeprazol 2020-0 Yes 40mg Take 40 mg [facility] 40 mg 4-22 by mouth ity of capsule 00:00: in the [place] morning Medical and 40 mg Branch in the evening. esomeprazol 2020-0 Yes 40mg Take 40 mg [facility] 40 mg 4-22 by mouth ity of capsule 00:00: in the [place] morning Medical and 40 mg Branch in the evening. esomeprazol 2020-0 Yes 40mg Take 40 mg [facility] e 40 mg 4-22 by mouth ity of capsule 00:00: in the [place] morning Medical and 40 mg Branch in the evening. esomeprazol 2020-0 Yes 40mg Take 1 [facility] ers e 40 mg 4-22 capsule by ity of capsule 00:00: mouth in [place] [address] the Medical morning Branch and 1 capsule in the evening. esomeprazol 2020-0 Yes 40mg Take 1 [facility] ers e 40 mg 4-22 capsule by ity of capsule 00:00: mouth in [place] 00 the Medical morning Branch and 1 capsule in the evening. esomeprazol 2020-0 Yes 40mg Take 1 [facility] ers e 40 mg 4-22 capsule by ity of capsule 00:00: mouth in [place] [address] the Medical morning Branch and 1 capsule in the evening. esomeprazol 2020-0 Yes 40mg Take 1 [facility] ers e 40 mg 4-22 capsule by ity of capsule 00:00: mouth in [place] [address] the Medical morning Branch and 1 capsule in the evening. esomeprazol 2020-0 Yes 40mg Take 1 [facility] ers e 40 mg 4-22 capsule by ity of capsule 00:00: mouth in [place] [address] the Medical morning Branch and 1 capsule in the evening. ondansetron 2020-0 Yes [id number] 4mg Take 1 [facility] 4 mg 2-10 tablet by ity of disintegrat 00:00: mouth [place] ing tablet 00 every 8 Medica l (eight) Branch hours as needed for Nausea and Vomiting (N/V). ondansetron 2020-0 Yes [id number] 4mg Take 1 [facility] 4 mg 2-10 tablet by ity of disintegrat 00:00: mouth [place] ing tablet 00 every 8 Medica l (eight) Branch hours as needed for Nausea and Vomiting (N/V). ondansetron 2020-0 Yes [id number] 4mg Take 1 [facility] 4 mg 2-10 tablet by ity of disintegrat 00:00: mouth [place] ing tablet 00 every 8 Medica l (eight) Branch hours as needed for Nausea and Vomiting (N/V). ondansetron 2020-0 Yes [id number] 4mg Take 1 [facility] 4 mg 2-10 tablet by ity of disintegrat 00:00: mouth [place] ing tablet 00 every 8 Medica l (eight) Branch hours as needed for Nausea and Vomiting (N/V). ondansetron 2020-0 Yes [id number] 4mg Take 1 [facility] 4 mg 2-10 tablet by ity of disintegrat 00:00: mouth [place] ing tablet 00 every 8 Medica l (eight) Branch hours as needed for Nausea and Vomiting (N/V). ondansetron 2020-0 Yes [id number] 4mg Take 1 [facility] 4 mg 2-10 tablet by ity of disintegrat 00:00: mouth [place] ing tablet 00 every 8 Medica l (eight) Branch hours as needed for Nausea and Vomiting (N/V). ondansetron 2020-0 Yes [id number] 4mg Take 1 [facility] 4 mg 2-10 tablet by ity of disintegrat 00:00: mouth [place] ing tablet 00 every 8 Medica l (eight) Branch hours as needed for Nausea and Vomiting (N/V). ondansetron 2020-0 Yes [id number] 4mg Take 1 [facility] 4 mg 2-10 tablet by ity of disintegrat 00:00: mouth [place] ing tablet 00 every 8 Medica l (eight) Branch hours as needed for Nausea and Vomiting (N/V). ondansetron 2020-0 Yes [id number] 4mg Take 1 [facility] 4 mg 2-10 tablet by ity of disintegrat 00:00: mouth [place] ing tablet 00 every 8 Medica l (eight) Branch hours as needed for Nausea and Vomiting (N/V). ondansetron 2020-0 Yes [id number] 4mg Take 1 [facility] 4 mg 2-10 tablet by ity of disintegrat 00:00: mouth [place] ing tablet 00 every 8 Medica l (eight) Branch hours as needed for Nausea and Vomiting (N/V). ondansetron 2020-0 Yes [id number] 4mg Take 1 [facility] 4 mg 2-10 tablet by ity of disintegrat 00:00: mouth [place] ing tablet 00 every 8 Medica l (eight) Branch hours as needed for Nausea and Vomiting (N/V). ondansetron 2020-0 Yes [id number] 4mg Take 1 [facility] 4 mg 2-10 tablet by ity of disintegrat 00:00: mouth [place] ing tablet 00 every 8 Medica l (eight) Branch hours as needed for Nausea and Vomiting (N/V). ondansetron 2020-0 Yes [id number] 4mg Take 1 [facility] 4 mg 2-10 tablet by ity of disintegrat 00:00: mouth [place] ing tablet 00 every 8 Medica l (eight) Branch hours as needed for Nausea and Vomiting (N/V). ondansetron 2020-0 Yes [id number] 4mg Take 1 [facility] 4 mg 2-10 tablet by ity of disintegrat 00:00: mouth [place] ing tablet 00 every 8 Medica l (eight) Branch hours as needed for Nausea and Vomiting (N/V). ondansetron 2020-0 Yes [id number] 4mg Take 1 [facility] 4 mg 2-10 tablet by ity of disintegrat 00:00: mouth [place] ing tablet 00 every 8 Medica l (eight) Branch hours as needed for Nausea and Vomiting (N/V). ondansetron 2020-0 Yes [id number] 4mg Take 1 [facility] 4 mg 2-10 tablet by ity of disintegrat 00:00: mouth [place] ing tablet 00 every 8 Medica l (eight) Branch hours as needed for Nausea and Vomiting (N/V). ondansetron 2020-0 Yes [id number] 4mg Take 1 [facility] 4 mg 2-10 tablet by ity of disintegrat 00:00: mouth [place] ing tablet 00 every 8 Medica l (eight) Branch hours as needed for Nausea and Vomiting (N/V). ondansetron 2020-0 Yes [id number] 4mg Take 1 [facility] 4 mg 2-10 tablet by ity of disintegrat 00:00: mouth [place] ing tablet 00 every 8 Medica l (eight) Branch hours as needed for Nausea and Vomiting (N/V). ondansetron 2020-0 Yes [id number] 4mg Take 1 [facility] 4 mg 2-10 tablet by ity of disintegrat 00:00: mouth [place] ing tablet 00 every 8 Medica l (eight) Branch hours as needed for Nausea and Vomiting (N/V). ondansetron 2020-0 Yes [id number] 4mg Take 1 [facility] 4 mg 2-10 tablet by ity of disintegrat 00:00: mouth [place] ing tablet 00 every 8 Medica l (eight) Branch hours as needed for Nausea and Vomiting (N/V). ondansetron 2020-0 Yes [id number] 4mg Take 1 [facility] 4 mg 2-10 tablet by ity of disintegrat 00:00: mouth [place] ing tablet 00 every 8 Medica l (eight) Branch hours as needed for Nausea and Vomiting (N/V). ondansetron 2020-0 Yes [id number] 4mg Take 1 [facility] 4 mg 2-10 tablet by ity of disintegrat 00:00: mouth [place] ing tablet 00 every 8 Medica l (eight) Branch hours as needed for Nausea and Vomiting (N/V). ondansetron 2020-0 Yes [id number] 4mg Take 1 [facility] 4 mg 2-10 tablet by ity of disintegrat 00:00: mouth [place] ing tablet 00 every 8 Medica l (eight) Branch hours as needed for Nausea and Vomiting (N/V). ondansetron 2020-0 Yes [id number] 4mg Take 1 [facility] 4 mg 2-10 tablet by ity of disintegrat 00:00: mouth [place] ing tablet 00 every 8 Medica l (eight) Branch hours as needed for Nausea and Vomiting (N/V). ondansetron 2020-0 Yes [id number] 4mg Take 1 [facility] 4 mg 2-10 tablet by ity of disintegrat 00:00: mouth [place] ing tablet 00 every 8 Medica l (eight) Branch hours as needed for Nausea and Vomiting (N/V). ondansetron 2020-0 Yes [id number] 4mg Take 1 [facility] 4 mg 2-10 tablet by ity of disintegrat 00:00: mouth [place] ing tablet 00 every 8 Medica l (eight) Branch hours as needed for Nausea and Vomiting (N/V). ondansetron 2020-0 Yes [id number] 4mg Take 1 [facility] 4 mg 2-10 tablet by ity of disintegrat 00:00: mouth [place] ing tablet 00 every 8 Medica l (eight) Branch hours as needed for Nausea and Vomiting (N/V). ondansetron 2020-0 Yes [id number] 4mg Take 1 [facility] 4 mg 2-10 tablet by ity of disintegrat 00:00: mouth [place] ing tablet 00 every 8 Medica l (eight) Branch hours as needed for Nausea and Vomiting (N/V). ondansetron 2020-0 Yes [id number] 4mg Take 1 [facility] 4 mg 2-10 tablet by ity of disintegrat 00:00: mouth [place] ing tablet 00 every 8 Medica l (eight) Branch hours as needed for Nausea and Vomiting (N/V). ondansetron 2020-0 Yes [id number] 4mg Take 1 [facility] 4 mg 2-10 tablet by ity of disintegrat 00:00: mouth [place] ing tablet 00 every 8 Medica l (eight) Branch hours as needed for Nausea and Vomiting (N/V). ondansetron 2020-0 Yes [id number] 4mg Take 1 [facility] 4 mg 2-10 tablet by ity of disintegrat 00:00: mouth [place] ing tablet 00 every 8 Medica l (eight) Branch hours as needed for Nausea and Vomiting (N/V). ondansetron 2020-0 Yes [id number] 4mg Take 1 [facility] 4 mg 2-10 tablet by ity of disintegrat 00:00: mouth [place] ing tablet 00 every 8 Medica l (eight) Branch hours as needed for Nausea and Vomiting (N/V). ondansetron 2020-0 Yes [id number] 4mg Take 1 [facility] 4 mg 2-10 tablet by ity of disintegrat 00:00: mouth [place] ing tablet 00 every 8 Medica l (eight) Branch hours as needed for Nausea and Vomiting (N/V). ondansetron 2020-0 Yes [id number] 4mg Take 1 [facility] 4 mg 2-10 tablet by ity of disintegrat 00:00: mouth [place] ing tablet 00 every 8 Medica l (eight) Branch hours as needed for Nausea and Vomiting (N/V). ondansetron 2020-0 Yes [id number] 4mg Take 1 [facility] 4 mg 2-10 tablet by ity of disintegrat 00:00: mouth [place] ing tablet 00 every 8 Medica l (eight) Branch hours as needed for Nausea and Vomiting (N/V). ondansetron 2020-0 Yes [id number] 4mg Take 1 [facility] 4 mg 2-10 tablet by ity of disintegrat 00:00: mouth [place] ing tablet 00 every 8 Medica l (eight) Branch hours as needed for Nausea and Vomiting (N/V). ondansetron 2020-0 Yes [id number] 4mg Take 1 [facility] 4 mg 2-10 tablet by ity of disintegrat 00:00: mouth [place] ing tablet 00 every 8 Medica l (eight) Branch hours as needed for Nausea and Vomiting (N/V). ondansetron 2020-0 Yes [id number] 4mg Take 1 [facility] 4 mg 2-10 tablet by ity of disintegrat 00:00: mouth [place] ing tablet 00 every 8 Medica l (eight) Branch hours as needed for Nausea and Vomiting (N/V). ondansetron 2020-0 Yes [id number] 4mg Take 1 [facility] 4 mg 2-10 tablet by ity of disintegrat 00:00: mouth [place] ing tablet 00 every 8 Medica l (eight) Branch hours as needed for Nausea and Vomiting (N/V). ondansetron 2020-0 Yes [id number] 4mg Take 1 [facility] 4 mg 2-10 tablet by ity of disintegrat 00:00: mouth [place] ing tablet 00 every 8 Medica l (eight) Branch hours as needed for Nausea and Vomiting (N/V). ondansetron 2020-0 Yes [id number] 4mg Take 1 [facility] 4 mg 2-10 tablet by ity of disintegrat 00:00: mouth [place] ing tablet 00 every 8 Medica l (eight) Branch hours as needed for Nausea and Vomiting (N/V). ondansetron 2020-0 Yes [id number] 4mg Take 1 [facility] 4 mg 2-10 tablet by ity of disintegrat 00:00: mouth [place] ing tablet 00 every 8 Medica l (eight) Branch hours as needed for Nausea and Vomiting (N/V). ondansetron 2020-0 Yes [id number] 4mg Take 1 [facility] 4 mg 2-10 tablet by ity of disintegrat 00:00: mouth [place] ing tablet 00 every 8 Medica l (eight) Branch hours as needed for Nausea and Vomiting (N/V). ondansetron 2020-0 Yes [id number] 4mg Take 1 [facility] 4 mg 2-10 tablet by ity of disintegrat 00:00: mouth [place] ing tablet 00 every 8 Medica l (eight) Branch hours as needed for Nausea and Vomiting (N/V). ondansetron 2020-0 Yes [id number] 4mg Take 1 [facility] 4 mg 2-10 tablet by ity of disintegrat 00:00: mouth [place] ing tablet 00 every 8 Medica l (eight) Branch hours as needed for Nausea and Vomiting (N/V). ondansetron 2020-0 Yes [id number] 4mg Take 1 [facility] 4 mg 2-10 tablet by ity of disintegrat 00:00: mouth [place] ing tablet 00 every 8 Medica l (eight) Branch hours as needed for Nausea and Vomiting (N/V). ondansetron 2020-0 Yes [id number] 4mg Take 1 [facility] 4 mg 2-10 tablet by ity of disintegrat 00:00: mouth [place] ing tablet 00 every 8 Medica l (eight) Branch hours as needed for Nausea and Vomiting (N/V). ondansetron 2020-0 Yes [id number] 4mg Take 1 [facility] 4 mg 2-10 tablet by ity of disintegrat 00:00: mouth [place] ing tablet 00 every 8 Medica l (eight) Branch hours as needed for Nausea and Vomiting (N/V). ondansetron 2020-0 Yes [id number] 4mg Take 1 [facility] 4 mg 2-10 tablet by ity of disintegrat 00:00: mouth [place] ing tablet 00 every 8 Medica l (eight) Branch hours as needed for Nausea and Vomiting (N/V). ondansetron 2020-0 Yes [id number] 4mg Take 1 [facility] 4 mg 2-10 tablet by ity of disintegrat 00:00: mouth [place] ing tablet 00 every 8 Medica l (eight) Branch hours as needed for Nausea and Vomiting (N/V). ondansetron 2020-0 Yes [id number] 4mg Take 1 [facility] 4 mg 2-10 tablet by ity of disintegrat 00:00: mouth [place] ing tablet 00 every 8 Medica l (eight) Branch hours as needed for Nausea and Vomiting (N/V). ondansetron 2020-0 Yes [id number] 4mg Take 1 [facility] 4 mg 2-10 tablet by ity of disintegrat 00:00: mouth [place] ing tablet 00 every 8 Medica l (eight) Branch hours as needed for Nausea and Vomiting (N/V). ondansetron 2020-0 Yes [id number] 4mg Take 1 [facility] 4 mg 2-10 tablet by ity of disintegrat 00:00: mouth [place] ing tablet 00 every 8 Medica l (eight) Branch hours as needed for Nausea and Vomiting (N/V). ondansetron 2020-0 Yes [id number] 4mg Take 1 [facility] 4 mg 2-10 tablet by ity of disintegrat 00:00: mouth [place] ing tablet 00 every 8 Medica l (eight) Branch hours as needed for Nausea and Vomiting (N/V). ondansetron 2020-0 Yes [id number] 4mg Take 1 [facility] 4 mg 2-10 tablet by ity of disintegrat 00:00: mouth [place] ing tablet 00 every 8 Medica l (eight) Branch hours as needed for Nausea and Vomiting (N/V). ondansetron 2020-0 Yes [id number] 4mg Take 1 [facility] 4 mg 2-10 tablet by ity of disintegrat 00:00: mouth [place] ing tablet 00 every 8 Medica l (eight) Branch hours as needed for Nausea and Vomiting (N/V). ondansetron 2020-0 Yes [id number] 4mg Take 1 [facility] 4 mg 2-10 tablet by ity of disintegrat 00:00: mouth [place] ing tablet 00 every 8 Medica l (eight) Branch hours as needed for Nausea and Vomiting (N/V). ondansetron 2020-0 Yes [id number] 4mg Take 1 [facility] 4 mg 2-10 tablet by ity of disintegrat 00:00: mouth [place] ing tablet 00 every 8 Medica l (eight) Branch hours as needed for Nausea and Vomiting (N/V). ondansetron 2020-0 Yes [id number] 4mg Take 1 [facility] 4 mg 2-10 tablet by ity of disintegrat 00:00: mouth [place] ing tablet 00 every 8 Medica l (eight) Branch hours as needed for Nausea and Vomiting (N/V). ondansetron 2020-0 Yes [id number] 4mg Take 1 [facility] 4 mg 2-10 tablet by ity of disintegrat 00:00: mouth [place] ing tablet 00 every 8 Medica l (eight) Branch hours as needed for Nausea and Vomiting (N/V). ondansetron 2020-0 Yes [id number] 4mg Take 1 [facility] 4 mg 2-10 tablet by ity of disintegrat 00:00: mouth [place] ing tablet 00 every 8 Medica l (eight) Branch hours as needed for Nausea and Vomiting (N/V). ondansetron 2020-0 Yes [id number] 4mg Take 1 [facility] 4 mg 2-10 [...] Status Comments Sour e Immunization Name Name SARS-COV-2 COVID-19 2022-08-02 Completed Unive rsity of VACCINE 12 YRS+, 00:00:00 [place] [facility] BIVALENT 0.5ML, IM, Branc h (MODERNA BOOSTER) SARS-COV-2 COVID-19 2022-08-02 Completed Unive rsity of VACCINE 12 YRS+, 00:00:00 [place] [facility] BIVALENT 0.5ML, IM, Branc h (MODERNA BOOSTER) SARS-COV-2 COVID-19 2022-08-02 Completed Unive rsity of VACCINE 12 YRS+, 00:00:00 [place] [facility] BIVALENT 0.5ML, IM, Branc h (MODERNA BOOSTER) SARS-COV-2 COVID-19 2022-08-02 Completed Unive rsity of VACCINE 12 YRS+, 00:00:00 [place] [facility] BIVALENT 0.5ML, IM, Branc h (MODERNA BOOSTER) SARS-COV-2 COVID-19 2022-08-02 Completed Unive rsity of VACCINE 12 YRS+, 00:00:00 [place] [facility] BIVALENT 0.5ML, IM, Branc h (MODERNA BOOSTER) SARS-COV-2 COVID-19 2022-08-02 Completed Unive rsity of VACCINE 12 YRS+, 00:00:00 [place] [facility] BIVALENT 0.5ML, IM, Branc h (MODERNA BOOSTER) SARS-COV-2 COVID-19 2022-08-02 Completed Unive rsity of VACCINE 12 YRS+, 00:00:00 [place] [facility] BIVALENT 0.5ML, IM, Branc h (MODERNA BOOSTER) SARS-COV-2 COVID-19 2022-08-02 Completed Unive rsity of VACCINE 12 YRS+, 00:00:00 [place] [facility] BIVALENT 0.5ML, IM, Branc h (MODERNA BOOSTER) SARS-COV-2 COVID-19 2022-08-02 Completed Unive rsity of VACCINE 12 YRS+, 00:00:00 [place] [facility] BIVALENT 0.5ML, IM, Branc h (MODERNA BOOSTER) SARS-COV-2 COVID-19 2022-08-02 Completed Unive rsity of VACCINE 12 YRS+, 00:00:00 [place] [facility] BIVALENT 0.5ML, IM, Branc h (MODERNA BOOSTER) SARS-COV-2 COVID-19 2022-08-02 Completed Unive rsity of VACCINE 12 YRS+, 00:00:00 [place] [facility] BIVALENT 0.5ML, IM, Branc h (MODERNA BOOSTER) SARS-COV-2 COVID-19 2022-08-02 Completed Unive rsity of VACCINE 12 YRS+, 00:00:00 [place] [facility] BIVALENT 0.5ML, IM, Branc h (MODERNA BOOSTER) SARS-COV-2 COVID-19 2022-08-02 Completed Unive rsity of VACCINE 12 YRS+, 00:00:00 [place] [facility] BIVALENT 0.5ML, IM, Branc h (MODERNA BOOSTER) SARS-COV-2 COVID-19 2022-08-02 Completed Unive rsity of VACCINE 12 YRS+, 00:00:00 [place] [facility] BIVALENT 0.5ML, IM, Branc h (MODERNA BOOSTER) SARS-COV-2 COVID-19 2022-08-02 Completed Unive rsity of VACCINE 12 YRS+, 00:00:00 [place] [facility] BIVALENT 0.5ML, IM, Branc h (MODERNA BOOSTER) SARS-COV-2 COVID-19 2022-08-02 Completed Unive rsity of VACCINE 12 YRS+, 00:00:00 [place] [facility] BIVALENT 0.5ML, IM, Branc h (MODERNA BOOSTER) SARS-COV-2 COVID-19 2022-08-02 Completed [facility]ive rsity of VACCINE 12 YRS+, 00:00:00 [place] [facility] BIVALENT 0.5ML, IM, Branc h (MODERNA BOOSTER) SARS-COV-2 COVID-19 2022-08-02 Completed [facility]ive rsity of VACCINE 12 YRS+, 00:00:00 [place] [facility] BIVALENT 0.5ML, IM, Branc h (MODERNA BOOSTER) SARS-COV-2 COVID-19 2022-08-02 Completed Unive rsity of VACCINE 12 YRS+, 00:00:00 [place] [facility] BIVALENT 0.5ML, IM, Branc h (MODERNA BOOSTER) SARS-COV-2 COVID-19 2022-08-02 Completed [facility]ive rsity of VACCINE 12 YRS+, 00:00:00 [place] [facility] BIVALENT 0.5ML, IM, Branc h (MODERNA BOOSTER) SARS-COV-2 COVID-19 2022-08-02 Completed [facility]ive rs[facility] of VACCINE 12 YRS+, 00:00:00 [place] [facility] BIVALENT 0.5ML, IM, Branc h (MODERNA BOOSTER) SARS-COV-2 COVID-19 2022-08-02 Completed [facility]ive rsity of VACCINE 12 YRS+, 00:00:00 [place] [facility] BIVALENT 0.5ML, IM, Branc h (MODERNA BOOSTER) SARS-COV-2 COVID-19 2022-08-02 Completed [facility]ive rsity of VACCINE 12 YRS+, 00:00:00 [place] [facility] BIVALENT 0.5ML, IM, Branc h (MODERNA BOOSTER) SARS-COV-2 COVID-19 2022-08-02 Completed [facility]ive rsity of VACCINE 12 YRS+, 00:00:00 [place] [facility] BIVALENT 0.5ML, IM, Branc h (MODERNA BOOSTER) SARS-COV-2 COVID-19 2022-08-02 Completed Unive rsity of VACCINE 12 YRS+, 00:00:00 [place] [facility] BIVALENT 0.5ML, IM, Branc h (MODERNA BOOSTER) SARS-COV-2 COVID-19 2022-08-02 Completed [facility]ive rs[facility] of VACCINE 12 YRS+, 00:00:00 [place] [facility] BIVALENT 0.5ML, IM, Branc h (MODERNA BOOSTER) SARS-COV-2 COVID-19 2022-08-02 Completed [facility]ive rs[facility] of VACCINE 12 YRS+, 00:00:00 [place] [facility] BIVALENT 0.5ML, IM, Branc h (MODERNA BOOSTER) SARS-COV-2 COVID-19 2022-08-02 Completed [facility]ive rs[facility] of VACCINE 12 YRS+, 00:00:00 [place] [facility] BIVALENT 0.5ML, IM, Branc h (MODERNA BOOSTER) SARS-COV-2 COVID-19 2022-08-02 Completed Unive rsity of VACCINE 12 YRS+, 00:00:00 [place] [facility] BIVALENT 0.5ML, IM, Branc h (MODERNA BOOSTER) SARS-COV-2 COVID-19 2022-08-02 Completed [facility]ive rs[facility] of VACCINE 12 YRS+, 00:00:00 [place] [facility] BIVALENT 0.5ML, IM, Branc h (MODERNA BOOSTER) SARS-COV-2 COVID-19 2022-08-02 Completed [facility]ive rs[facility] of VACCINE 12 YRS+, 00:00:00 [place] [facility] BIVALENT 0.5ML, IM, Branc h (MODERNA BOOSTER) SARS-COV-2 COVID-19 2022-08-02 Completed [facility]ive rs[facility] of VACCINE 12 YRS+, 00:00:00 [place] [facility] BIVALENT 0.5ML, IM, Branc h (MODERNA BOOSTER) SARS-COV-2 COVID-19 2022-08-02 Completed [facility]ive rs[facility] of VACCINE 12 YRS+, 00:00:00 [place] [facility] BIVALENT 0.5ML, IM, Branc h (MODERNA BOOSTER) SARS-COV-2 COVID-19 2022-08-02 Completed [facility]ive rs[facility] of VACCINE 12 YRS+, 00:00:00 [place] [facility] BIVALENT 0.5ML, IM, Branc h (MODERNA BOOSTER) SARS-COV-2 COVID-19 2022-08-02 Completed [facility] rs[facility] of VACCINE 12 YRS+, 00:00:00 [place] [facility] BIVALENT 0.5ML, IM, Branc h (MODERNA BOOSTER) SARS-COV-2 COVID-19 2022-08-02 Completed [facility] rs[facility] of VACCINE 12 YRS+, 00:00:00 [place] [facility] BIVALENT 0.5ML, IM, Branc h (MODERNA BOOSTER) SARS-COV-2 COVID-19 2022-08-02 Completed [facility] rs[facility] of VACCINE 12 YRS+, 00:00:00 [place] [facility] BIVALENT 0.5ML, IM, Branc h (MODERNA BOOSTER) SARS-COV-2 COVID-19 2022-08-02 Completed [facility]ive rs[facility] of VACCINE 12 YRS+, 00:00:00 [place] [facility] BIVALENT 0.5ML, IM, Branc h (MODERNA BOOSTER) SARS-COV-2 COVID-19 2022-08-02 Completed [facility] rs[facility] of VACCINE 12 YRS+, 00:00:00 [place] [facility] BIVALENT 0.5ML, IM, Branc h (MODERNA BOOSTER) SARS-COV-2 COVID-19 2022-08-02 Completed [facility] rs[facility] of VACCINE 12 YRS+, 00:00:00 [place] [facility] BIVALENT 0.5ML, IM, Branc h (MODERNA BOOSTER) SARS-COV-2 COVID-19 2022-08-02 Completed [facility] rs[facility] of VACCINE 12 YRS+, 00:00:00 [place] [facility] BIVALENT 0.5ML, IM, Branc h (MODERNA BOOSTER) SARS-COV-2 COVID-19 2022-08-02 Completed [facility] rs[facility] of VACCINE 12 YRS+, 00:00:00 [place] [facility] BIVALENT 0.5ML, IM, Branc h (MODERNA BOOSTER) SARS-COV-2 COVID-19 2022-08-02 Completed [facility] rs[facility] of VACCINE 12 YRS+, 00:00:00 [place] [facility] BIVALENT 0.5ML, IM, Branc h (MODERNA BOOSTER) SARS-COV-2 COVID-19 2022-08-02 Completed [facility]ive rs[facility] of VACCINE 12 YRS+, 00:00:00 [place] [facility] BIVALENT 0.5ML, IM, Branc h (MODERNA BOOSTER) SARS-COV-2 COVID-19 2022-08-02 Completed Unive rsity of VACCINE 12 YRS+, 00:00:00 [place] [facility] BIVALENT 0.5ML, IM, Branc h (MODERNA BOOSTER) SARS-COV-2 COVID-19 2022-08-02 Completed Unive rsity of VACCINE 12 YRS+, 00:00:00 [place] [facility] BIVALENT 0.5ML, IM, Branc h (MODERNA BOOSTER) SARS-COV-2 COVID-19 2022-08-02 Completed Unive rsity of VACCINE 12 YRS+, 00:00:00 [place] [facility] BIVALENT 0.5ML, IM, Branc h (MODERNA BOOSTER) SARS-COV-2 COVID-19 2022-08-02 Completed Unive rsity of VACCINE 12 YRS+, 00:00:00 [place] [facility] BIVALENT 0.5ML, IM, Branc h (MODERNA BOOSTER) SARS-COV-2 COVID-19 2022-08-02 Completed Unive rsity of VACCINE 12 YRS+, 00:00:00 [place] [facility] BIVALENT 0.5ML, IM, Branc h (MODERNA BOOSTER) SARS-COV-2 COVID-19 2022-08-02 Completed Unive rsity of VACCINE 12 YRS+, 00:00:00 [place] [facility] BIVALENT 0.5ML, IM, Branc h (MODERNA BOOSTER) SARS-COV-2 COVID-19 2022-08-02 Completed Unive rsity of VACCINE 12 YRS+, 00:00:00 [place] [facility] BIVALENT 0.5ML, IM, Branc h (MODERNA BOOSTER) SARS-COV-2 COVID-19 2022-08-02 Completed [facility]ive rsity of VACCINE 12 YRS+, 00:00:00 [place] [facility] BIVALENT 0.5ML, IM, Branc h (MODERNA BOOSTER) SARS-COV-2 COVID-19 2022-08-02 Completed Unive rsity of VACCINE 12 YRS+, 00:00:00 [place] [facility] BIVALENT 0.5ML, IM, Branc h (MODERNA) SARS-COV-2 COVID-19 2022-08-02 Completed [facility]ive rsity of VACCINE 12 YRS+, 00:00:00 [place] [facility] BIVALENT 0.5ML, IM, Branc h (MODERNA-BLUE TOP) Pneumococcal 20 2022-07-10 Completed [facility]it [facility] of Conjugate, PCV20 00:00:00 [place] [facility] (Prevnar 20) Branch Pneumococcal 20 2022-07-10 Completed [facility] of Conjugate, PCV20 00:00:00 [place] [facility] (Prevnar 20) Branch Pneumococcal 20 2022-07-10 Completed [facility] of Conjugate, PCV20 00:00:00 [facility] dical (Prevnar 20) Branch Pneumococcal 20 2022-07-10 Completed [facility]it [facility] of Conjugate, PCV20 00:00:00 [place] [facility] (Prevnar 20) Branch Pneumococcal 20 2022-07-10 Completed [facility] of Conjugate, PCV20 00:00:00 [place] [facility] (Prevnar 20) Branch Pneumococcal 20 2022-07-10 Completed [facility] of Conjugate, PCV20 00:00:00 [place] [facility] (Prevnar 20) Branch Pneumococcal 20 2022-07-10 Completed [facility] of Conjugate, PCV20 00:00:00 [facility] dical (Prevnar 20) Branch Pneumococcal 20 2022-07-10 Completed [facility]it y of Conjugate, PCV20 00:00:00 [facility] dical (Prevnar 20) Branch Pneumococcal 20 2022-07-10 Completed [facility]it [facility] of Conjugate, PCV20 00:00:00 [facility] dical (Prevnar 20) Branch Pneumococcal 20 2022-07-10 Completed [facility]it [facility] of Conjugate, PCV20 00:00:00 [facility] dical (Prevnar 20) Branch Pneumococcal 20 2022-07-10 Completed [facility]it [facility] of Conjugate, PCV20 00:00:00 [facility] dical (Prevnar 20) Branch Pneumococcal 20 2022-07-10 Completed [facility]it [facility] of Conjugate, PCV20 00:00:00 [place] [facility] (Prevnar 20) Branch Pneumococcal 20 2022-07-10 Completed [facility] of Conjugate, PCV20 00:00:00 [place] [facility] (Prevnar 20) Branch Pneumococcal 20 2022-07-10 Completed [facility] of Conjugate, PCV20 00:00:00 [place] [facility] (Prevnar 20) Branch Pneumococcal 20 2022-07-10 Completed [facility] of Conjugate, PCV20 00:00:00 [place] [facility] (Prevnar 20) Branch Pneumococcal 20 2022-07-10 Completed [facility] of Conjugate, PCV20 00:00:00 [facility] dical (Prevnar 20) Branch Pneumococcal 20 2022-07-10 Completed [facility] of Conjugate, PCV20 00:00:00 [place] [facility] (Prevnar 20) Branch Pneumococcal 20 2022-07-10 Completed [facility] of Conjugate, PCV20 00:00:00 [place] [facility] (Prevnar 20) Branch Pneumococcal 20 2022-07-10 Completed [facility] of Conjugate, PCV20 00:00:00 [place] [facility] (Prevnar 20) Branch Pneumococcal 20 2022-07-10 Completed [facility] of Conjugate, PCV20 00:00:00 [place] [facility] (Prevnar 20) Branch Pneumococcal 20 2022-07-10 Completed [facility] of Conjugate, PCV20 00:00:00 [place] [facility] (Prevnar 20) Branch Pneumococcal 20 2022-07-10 Completed [facility] of Conjugate, PCV20 00:00:00 [place] [facility] (Prevnar 20) Branch Pneumococcal 20 2022-07-10 Completed [facility] of Conjugate, PCV20 00:00:00 [place] [facility] (Prevnar 20) Branch Pneumococcal 20 2022-07-10 Completed [facility] of Conjugate, PCV20 00:00:00 [place] [facility] (Prevnar 20) Branch Pneumococcal 20 2022-07-10 Completed [facility] of Conjugate, PCV20 00:00:00 [place] [facility] (Prevnar 20) Branch Pneumococcal 20 2022-07-10 Completed [facility] of Conjugate, PCV20 00:00:00 [facility] dical (Prevnar 20) Branch Pneumococcal 20 2022-07-10 Completed [facility] of Conjugate, PCV20 00:00:00 [place] [facility] (Prevnar 20) Branch Pneumococcal 20 2022-07-10 Completed [facility] of Conjugate, PCV20 00:00:00 [place] [facility] (Prevnar 20) Branch Pneumococcal 20 2022-07-10 Completed [facility] of Conjugate, PCV20 00:00:00 [place] [facility] (Prevnar 20) Branch Pneumococcal 20 2022-07-10 Completed [facility] of Conjugate, PCV20 00:00:00 [place] [facility] (Prevnar 20) Branch Pneumococcal 20 2022-07-10 Completed [facility] of Conjugate, PCV20 00:00:00 [place] [facility] (Prevnar 20) Branch Pneumococcal 20 2022-07-10 Completed [facility] of Conjugate, PCV20 00:00:00 [place] [facility] (Prevnar 20) Branch Pneumococcal 20 2022-07-10 Completed [facility] of Conjugate, PCV20 00:00:00 [place] [facility] (Prevnar 20) Branch Pneumococcal 20 2022-07-10 Completed [facility] of Conjugate, PCV20 00:00:00 [place] [facility] (Prevnar 20) Branch Pneumococcal 20 2022-07-10 Completed [facility] of Conjugate, PCV20 00:00:00 [place] [facility] (Prevnar 20) Branch Pneumococcal 20 2022-07-10 Completed [facility] of Conjugate, PCV20 00:00:00 [place] [facility] (Prevnar 20) Branch Pneumococcal 20 2022-07-10 Completed [facility] of Conjugate, PCV20 00:00:00 [place] [facility] (Prevnar 20) Branch Pneumococcal 20 2022-07-10 Completed [facility] of Conjugate, PCV20 00:00:00 [place] [facility] (Prevnar 20) Branch Pneumococcal 20 2022-07-10 Completed [facility] of Conjugate, PCV20 00:00:00 [place] [facility] (Prevnar 20) Branch SARS-COV-2 COVID-19 2021-01-28 Completed Unive rsity [...] rsity of MODERNA 0.25ML 00:00:00 [place] [facility] BOOSTER VACCINE Branch SARS-COV-2 COVID-19 2020-12-28 Completed [...] 00:00:00 [place] [facility] BOOSTER VACCINE Branch Influenza Virus 2020-08-23 Completed [facility]it [facility] of Vaccine Quad .5 mL 00:00:00 [facility] 6+ MO Branch Influenza Virus 2020-08-23 Completed [facility] of Vaccine Quad .5 mL 00:00:00 [place] [facility] 6[facility] MO Branch Influenza Virus 2020-08-23 Completed [facility] of Vaccine Quad .5 mL 00:00:00 [place] [facility] 6+ MO Branch Influenza Virus 2020-08-23 Completed [facility] of Vaccine Quad .5 mL 00:00:00 [place] [facility] 6+ MO Branch Influenza Virus 2020-08-23 Completed [facility] of Vaccine Quad .5 mL 00:00:00 [place] [facility] 6+ MO Branch Influenza Virus 2020-08-23 Completed [facility] of Vaccine Quad .5 mL 00:00:00 [place] [facility] 6+ MO Branch Influenza Virus 2020-08-23 Completed [facility] of Vaccine Quad .5 mL 00:00:00 [place] [facility] 6+ MO Branch Influenza Virus 2020-08-23 Completed [facility] of Vaccine Quad .5 mL 00:00:00 [place] [facility] 6+ MO Branch Influenza Virus 2020-08-23 Completed [facility] of Vaccine Quad .5 mL 00:00:00 [place] [facility] 6+ MO Branch Influenza Virus 2020-08-23 Completed [facility] of Vaccine Quad .5 mL 00:00:00 [place] [facility] 6+ MO Branch Influenza Virus 2020-08-23 Completed [facility] of Vaccine Quad .5 mL 00:00:00 [place] [facility] 6+ MO Branch Influenza Virus 2020-08-23 Completed [facility] of Vaccine Quad .5 mL 00:00:00 [place] [facility] 6+ MO Branch Influenza Virus 2020-08-23 Completed [facility] of Vaccine Quad .5 mL 00:00:00 [place] [facility] 6+ MO Branch Influenza Virus 2020-08-23 Completed [facility] of Vaccine Quad .5 mL 00:00:00 [place] [facility] 6+ MO Branch Influenza Virus 2020-08-23 Completed [facility] of Vaccine Quad .5 mL 00:00:00 [place] [facility] 6+ MO Branch Influenza Virus 2020-08-23 Completed [facility] of Vaccine Quad .5 mL 00:00:00 [place] [facility] 6+ MO Branch Influenza Virus 2020-08-23 Completed [facility] of Vaccine Quad .5 mL 00:00:00 [place] [facility] 6+ MO Branch Influenza Virus 2020-08-23 Completed [facility] of Vaccine Quad .5 mL 00:00:00 [place] [facility] 6+ MO Branch Influenza Virus 2020-08-23 Completed [facility] of Vaccine Quad .5 mL 00:00:00 [place] [facility] 6+ MO Branch Influenza Virus 2020-08-23 Completed [facility] of Vaccine Quad .5 mL 00:00:00 [place] [facility] 6+ MO Branch Influenza Virus 2020-08-23 Completed [facility] of Vaccine Quad .5 mL 00:00:00 [place] [facility] 6+ MO Branch Influenza Virus 2020-08-23 Completed [facility] of Vaccine Quad .5 mL 00:00:00 [place] [facility] 6+ MO Branch Influenza Virus 2020-08-23 Completed [facility] of Vaccine Quad .5 mL 00:00:00 [place] [facility] 6+ MO Branch Influenza Virus 2020-08-23 Completed [facility] of Vaccine Quad .5 mL 00:00:00 [place] [facility] 6+ MO Branch Influenza Virus 2020-08-23 Completed [facility] of Vaccine Quad .5 mL 00:00:00 [place] [facility] 6+ MO Branch Influenza Virus 2020-08-23 Completed [facility] of Vaccine Quad .5 mL 00:00:00 [place] [facility] 6+ MO Branch Influenza Virus 2020-08-23 Completed [facility] of Vaccine Quad .5 mL 00:00:00 [place] [facility] 6+ MO Branch Influenza Virus 2020-08-23 Completed [facility] of Vaccine Quad .5 mL 00:00:00 [place] [facility] 6+ MO Branch Influenza Virus 2020-08-23 Completed [facility] of Vaccine Quad .5 mL 00:00:00 [place] [facility] 6+ MO Branch Influenza Virus 2020-08-23 Completed [facility] of Vaccine Quad .5 mL 00:00:00 [place] [facility] 6+ MO Branch Influenza Virus 2020-08-23 Completed [facility] of Vaccine Quad .5 mL 00:00:00 [place] [facility] 6+ MO Branch Influenza Virus 2020-08-23 Completed [facility] of Vaccine Quad .5 mL 00:00:00 [place] [facility] 6+ MO Branch Influenza Virus 2020-08-23 Completed [facility] of Vaccine Quad .5 mL 00:00:00 [place] [facility] 6+ MO Branch Influenza Virus 2020-08-23 Completed [facility] of Vaccine Quad .5 mL 00:00:00 [place] [facility] 6+ MO Branch Influenza Virus 2020-08-23 Completed [facility] of Vaccine Quad .5 mL 00:00:00 [place] [facility] 6+ MO Branch Influenza Virus 2020-08-23 Completed [facility] of Vaccine Quad .5 mL 00:00:00 [place] [facility] 6+ MO Branch Influenza Virus 2020-08-23 Completed [facility] of Vaccine Quad .5 mL 00:00:00 [place] [facility] 6+ MO Branch Influenza Virus 2020-08-23 Completed [facility] of Vaccine Quad .5 mL 00:00:00 [place] [facility] 6+ MO Branch Influenza Virus 2020-08-23 Completed [facility] of Vaccine Quad .5 mL 00:00:00 [place] [facility] 6+ MO Branch Influenza Virus 2020-08-23 Completed [facility] of Vaccine Quad .5 mL 00:00:00 [place] [facility] 6+ MO Branch Influenza Virus 2020-08-23 Completed [facility] of Vaccine Quad .5 mL 00:00:00 [place] [facility] 6+ MO Branch Influenza Virus 2020-08-23 Completed [facility] of Vaccine Quad .5 mL 00:00:00 [place] [facility] 6+ MO Branch Influenza Virus 2020-08-23 Completed [facility] of Vaccine Quad .5 mL 00:00:00 [place] [facility] 6+ MO Branch Influenza Virus 2020-08-23 Completed [facility] of Vaccine Quad .5 mL 00:00:00 [place] [facility] 6+ MO Branch Influenza Virus 2020-08-23 Completed [facility] of Vaccine Quad .5 mL 00:00:00 [place] [facility] 6+ MO Branch Influenza Virus 2020-08-23 Completed [facility] of Vaccine Quad .5 mL 00:00:00 [place] [facility] 6+ MO Branch Influenza Virus 2020-08-23 Completed [facility] of Vaccine Quad .5 mL 00:00:00 [place] [facility] 6+ MO Branch Influenza Virus 2020-08-23 Completed [facility] of Vaccine Quad .5 mL 00:00:00 [place] [facility] 6+ MO Branch Influenza Virus 2020-08-23 Completed [facility] of Vaccine Quad .5 mL 00:00:00 [place] [facility] 6+ MO Branch Influenza Virus 2020-08-23 Completed [facility] of Vaccine Quad .5 mL 00:00:00 [place] [facility] 6+ MO Branch Influenza Virus 2020-08-23 Completed [facility] of Vaccine Quad .5 mL 00:00:00 [place] [facility] 6+ MO Branch Influenza Virus 2020-08-23 Completed [facility] of Vaccine Quad .5 mL 00:00:00 [place] [facility] 6+ MO Branch Influenza Virus 2020-08-23 Completed [facility] of Vaccine Quad .5 mL 00:00:00 [place] [facility] 6+ MO Branch Influenza Virus 2020-08-23 Completed [facility] of Vaccine Quad .5 mL 00:00:00 [place] [facility] 6+ MO Branch Influenza Virus 2020-08-23 Completed [facility] of Vaccine Quad .5 mL 00:00:00 [place] [facility] 6+ MO Branch Influenza Virus 2020-08-23 Completed [facility] of Vaccine Quad .5 mL 00:00:00 [place] [facility] 6+ MO Branch Influenza Virus 2020-08-23 Completed [facility] of Vaccine Quad .5 mL 00:00:00 [place] [facility] 6+ MO Branch Influenza Virus 2020-08-23 Completed [facility] of Vaccine Quad .5 mL 00:00:00 [place] [facility] 6+ MO Branch Influenza Virus 2020-08-23 Completed [facility] of Vaccine Quad .5 mL 00:00:00 [place] [facility] 6+ MO Branch Influenza Virus 2020-08-23 Completed [facility] of Vaccine Quad .5 mL 00:00:00 [place] [facility] 6+ MO Branch Influenza Virus 2020-08-23 Completed [facility]it y of Vaccine Quad .5 mL 00:00:00 [place] [facility] 6+ MO Branch Influenza Virus 2020-08-23 Completed [facility] y of Vaccine Quad .5 mL 00:00:00 [facility] [place] [facility] 6+ MO Branch Pneumococcal 2018-09-04 Completed University o f Polysaccharide, 00:00:00 [place] [facility] PPSV23 (PNEUMOVAX) Branch Influenza Virus 2018-09-04 Completed [facility] of Vaccine Quad .5 mL 00:00:00 [place] [facility] 6+ MO Branch Pneumococcal 2018-09-04 Completed University o f Polysaccharide, 00:00:00 [place] [facility] PPSV23 (PNEUMOVAX) Branch Influenza Virus 2018-09-04 Completed [facility] of Vaccine Quad .5 mL 00:00:00 [place] [facility] 6+ MO Branch Pneumococcal 2018-09-04 Completed [facility] o f Polysaccharide, 00:00:00 [place] [facility] PPSV23 (PNEUMOVAX) Branch Influenza Virus 2018-09-04 Completed [facility] of Vaccine Quad .5 mL 00:00:00 [place] [facility] 6+ MO Branch Pneumococcal 2018-09-04 Completed University o f Polysaccharide, 00:00:00 [place] [facility] PPSV23 (PNEUMOVAX) Branch Influenza Virus 2018-09-04 Completed [facility] of Vaccine Quad .5 mL 00:00:00 [place] [facility] 6+ MO Branch Pneumococcal 2018-09-04 Completed [facility] o f Polysaccharide, 00:00:00 [place] [facility] PPSV23 (PNEUMOVAX) Branch Influenza Virus 2018-09-04 Completed [facility] of Vaccine Quad .5 mL 00:00:00 [place] [facility] 6+ MO Branch Pneumococcal 2018-09-04 Completed [facility] o f Polysaccharide, 00:00:00 [place] [facility] PPSV23 (PNEUMOVAX) Branch Influenza Virus 2018-09-04 Completed [facility] of Vaccine Quad .5 mL 00:00:00 [place] [facility] 6+ MO Branch Pneumococcal 2018-09-04 Completed [facility] o f Polysaccharide, 00:00:00 [place] [facility] PPSV23 (PNEUMOVAX) Branch Influenza Virus 2018-09-04 Completed [facility] of Vaccine Quad .5 mL 00:00:00 [place] [facility] 6+ MO Branch Pneumococcal 2018-09-04 Completed [facility] o f Polysaccharide, 00:00:00 [place] [facility] PPSV23 (PNEUMOVAX) Branch Influenza Virus 2018-09-04 Completed [facility] of Vaccine Quad .5 mL 00:00:00 [place] [facility] 6+ MO Branch Pneumococcal 2018-09-04 Completed [facility] o f Polysaccharide, 00:00:00 [place] [facility] PPSV23 (PNEUMOVAX) Branch Influenza Virus 2018-09-04 Completed [facility] of Vaccine Quad .5 mL 00:00:00 [place] [facility] 6+ MO Branch Pneumococcal 2018-09-04 Completed [facility] o f Polysaccharide, 00:00:00 [place] [facility] PPSV23 (PNEUMOVAX) Branch Influenza Virus 2018-09-04 Completed [facility] of Vaccine Quad .5 mL 00:00:00 [place] [facility] 6+ MO Branch Pneumococcal 2018-09-04 Completed [facility] o f Polysaccharide, 00:00:00 [place] [facility] PPSV23 (PNEUMOVAX) Branch Influenza Virus 2018-09-04 Completed [facility] of Vaccine Quad .5 mL 00:00:00 [place] [facility] 6+ MO Branch Pneumococcal 2018-09-04 Completed [facility] o f Polysaccharide, 00:00:00 [place] [facility] PPSV23 (PNEUMOVAX) Branch Influenza Virus 2018-09-04 Completed [facility] of Vaccine Quad .5 mL 00:00:00 [place] [facility] 6+ MO Branch Pneumococcal 2018-09-04 Completed [facility] o f Polysaccharide, 00:00:00 [place] [facility] PPSV23 (PNEUMOVAX) Branch Influenza Virus 2018-09-04 Completed [facility] of Vaccine Quad .5 mL 00:00:00 [place] [facility] 6+ MO Branch Pneumococcal 2018-09-04 Completed [facility] o f Polysaccharide, 00:00:00 [place] [facility] PPSV23 (PNEUMOVAX) Branch Influenza Virus 2018-09-04 Completed [facility] of Vaccine Quad .5 mL 00:00:00 [place] [facility] 6+ MO Branch Pneumococcal 2018-09-04 Completed [facility] o f Polysaccharide, 00:00:00 [place] [facility] PPSV23 (PNEUMOVAX) Branch Influenza Virus 2018-09-04 Completed [facility] of Vaccine Quad .5 mL 00:00:00 [place] [facility] 6+ MO Branch Pneumococcal 2018-09-04 Completed [facility] o f Polysaccharide, 00:00:00 [place] [facility] PPSV23 (PNEUMOVAX) Branch Influenza Virus 2018-09-04 Completed [facility] of Vaccine Quad .5 mL 00:00:00 [place] [facility] 6+ MO Branch Pneumococcal 2018-09-04 Completed [facility] o f Polysaccharide, 00:00:00 [place] [facility] PPSV23 (PNEUMOVAX) Branch Influenza Virus 2018-09-04 Completed [facility] of Vaccine Quad .5 mL 00:00:00 [place] [facility] 6+ MO Branch Pneumococcal 2018-09-04 Completed [facility] o f Polysaccharide, 00:00:00 [place] [facility] PPSV23 (PNEUMOVAX) Branch Influenza Virus 2018-09-04 Completed [facility] of Vaccine Quad .5 mL 00:00:00 [place] [facility] 6+ MO Branch Pneumococcal 2018-09-04 Completed [facility] o f Polysaccharide, 00:00:00 [place] [facility] PPSV23 (PNEUMOVAX) Branch Influenza Virus 2018-09-04 Completed [facility] of Vaccine Quad .5 mL 00:00:00 [place] [facility] 6+ MO Branch Pneumococcal 2018-09-04 Completed [facility] o f Polysaccharide, 00:00:00 [place] [facility] PPSV23 (PNEUMOVAX) Branch Influenza Virus 2018-09-04 Completed [facility] of Vaccine Quad .5 mL 00:00:00 [place] [facility] 6+ MO Branch Pneumococcal 2018-09-04 Completed [facility] o f Polysaccharide, 00:00:00 [place] [facility] PPSV23 (PNEUMOVAX) Branch Influenza Virus 2018-09-04 Completed [facility] of Vaccine Quad .5 mL 00:00:00 [place] [facility] 6+ MO Branch Pneumococcal 2018-09-04 Completed University o f Polysaccharide, 00:00:00 [place] [facility] PPSV23 (PNEUMOVAX) Branch Influenza Virus 2018-09-04 Completed [facility] of Vaccine Quad .5 mL 00:00:00 [place] [facility] 6+ MO Branch Pneumococcal 2018-09-04 Completed [facility] o f Polysaccharide, 00:00:00 [place] [facility] PPSV23 (PNEUMOVAX) Branch Influenza Virus 2018-09-04 Completed [facility] of Vaccine Quad .5 mL 00:00:00 [place] [facility] 6+ MO Branch Pneumococcal 2018-09-04 Completed [facility] o f Polysaccharide, 00:00:00 [place] [facility] PPSV23 (PNEUMOVAX) Branch Influenza Virus 2018-09-04 Completed [facility] of Vaccine Quad .5 mL 00:00:00 [place] [facility] 6+ MO Branch Pneumococcal 2018-09-04 Completed [facility] o f Polysaccharide, 00:00:00 [place] [facility] PPSV23 (PNEUMOVAX) Branch Influenza Virus 2018-09-04 Completed [facility] of Vaccine Quad .5 mL 00:00:00 [place] [facility] 6+ MO Branch Pneumococcal 2018-09-04 Completed [facility] o f Polysaccharide, 00:00:00 [place] [facility] PPSV23 (PNEUMOVAX) Branch Influenza Virus 2018-09-04 Completed [facility] of Vaccine Quad .5 mL 00:00:00 [place] [facility] 6+ MO Branch Pneumococcal 2018-09-04 Completed [facility] o f Polysaccharide, 00:00:00 [place] [facility] PPSV23 (PNEUMOVAX) Branch Influenza Virus 2018-09-04 Completed [facility] of Vaccine Quad .5 mL 00:00:00 [place] [facility] 6+ MO Branch Pneumococcal 2018-09-04 Completed [facility] o f Polysaccharide, 00:00:00 [place] [facility] PPSV23 (PNEUMOVAX) Branch Influenza Virus 2018-09-04 Completed [facility] of Vaccine Quad .5 mL 00:00:00 [place] [facility] 6+ MO Branch Pneumococcal 2018-09-04 Completed [facility] o f Polysaccharide, 00:00:00 [place] [facility] PPSV23 (PNEUMOVAX) Branch Influenza Virus 2018-09-04 Completed [facility] of Vaccine Quad .5 mL 00:00:00 [place] [facility] 6+ MO Branch Pneumococcal 2018-09-04 Completed [facility] o f Polysaccharide, 00:00:00 [place] [facility] PPSV23 (PNEUMOVAX) Branch Influenza Virus 2018-09-04 Completed [facility] of Vaccine Quad .5 mL 00:00:00 [place] [facility] 6+ MO Branch Pneumococcal 2018-09-04 Completed [facility] o f Polysaccharide, 00:00:00 [place] [facility] PPSV23 (PNEUMOVAX) Branch Influenza Virus 2018-09-04 Completed [facility] of Vaccine Quad .5 mL 00:00:00 [place] [facility] 6+ MO Branch Pneumococcal 2018-09-04 Completed [facility] o f Polysaccharide, 00:00:00 [place] [facility] PPSV23 (PNEUMOVAX) Branch Influenza Virus 2018-09-04 Completed [facility] of Vaccine Quad .5 mL 00:00:00 [place] [facility] 6+ MO Branch Pneumococcal 2018-09-04 Completed [facility] o f Polysaccharide, 00:00:00 [place] [facility] PPSV23 (PNEUMOVAX) Branch Influenza Virus 2018-09-04 Completed [facility] of Vaccine Quad .5 mL 00:00:00 [facility] 6+ MO Branch Pneumococcal 2018-09-04 Completed [facility] o f Polysaccharide, 00:00:00 [place] [facility] PPSV23 (PNEUMOVAX) Branch Influenza Virus 2018-09-04 Completed [facility] of Vaccine Quad .5 mL 00:00:00 [place] [facility] 6+ MO Branch Pneumococcal 2018-09-04 Completed [facility] o f Polysaccharide, 00:00:00 [place] [facility] PPSV23 (PNEUMOVAX) Branch Influenza Virus 2018-09-04 Completed [facility] of Vaccine Quad .5 mL 00:00:00 [place] [facility] 6+ MO Branch Pneumococcal 2018-09-04 Completed [facility] o f Polysaccharide, 00:00:00 [place] [facility] PPSV23 (PNEUMOVAX) Branch Influenza Virus 2018-09-04 Completed [facility] of Vaccine Quad .5 mL 00:00:00 [place] [facility] 6+ MO Branch Pneumococcal 2018-09-04 Completed [facility] o f Polysaccharide, 00:00:00 [place] [facility] PPSV23 (PNEUMOVAX) Branch Influenza Virus 2018-09-04 Completed [facility] of Vaccine Quad .5 mL 00:00:00 [place] [facility] 6+ MO Branch Pneumococcal 2018-09-04 Completed [facility] o f Polysaccharide, 00:00:00 [place] [facility] PPSV23 (PNEUMOVAX) Branch Influenza Virus 2018-09-04 Completed [facility] of Vaccine Quad .5 mL 00:00:00 [facility] 6+ MO Branch Pneumococcal 2018-09-04 Completed [facility] o f Polysaccharide, 00:00:00 [place] [facility] PPSV23 (PNEUMOVAX) Branch Influenza Virus 2018-09-04 Completed [facility] of Vaccine Quad .5 mL 00:00:00 [facility] [place] [facility] 6+ MO Branch Pneumococcal 2018-09-04 Completed [facility] o f Polysaccharide, 00:00:00 [place] [facility] PPSV23 (PNEUMOVAX) Branch Influenza Virus 2018-09-04 Completed [facility] of Vaccine Quad .5 mL 00:00:00 [facility] [place] [facility] IM 6+ MO Branch Pneumococcal 2018-09-04 Completed [facility] o f Polysaccharide, 00:00:00 [place] [facility] PPSV23 (PNEUMOVAX) Branch Influenza Virus 2018-09-04 Completed [facility] of Vaccine Quad .5 mL 00:00:00 [facility] [place] [facility] 6+ MO Branch Pneumococcal 2018-09-04 Completed [facility] o f Polysaccharide, 00:00:00 [place] [facility] PPSV23 (PNEUMOVAX) Branch Influenza Virus 2018-09-04 Completed [facility] of Vaccine Quad .5 mL 00:00:00 [facility] IM 6+ MO Branch Pneumococcal 2018-09-04 Completed [facility] o f Polysaccharide, 00:00:00 [place] [facility] PPSV23 (PNEUMOVAX) Branch Influenza Virus 2018-09-04 Completed [facility] of Vaccine Quad .5 mL 00:00:00 [facility] IM 6+ MO Branch Pneumococcal 2018-09-04 Completed [facility] o f Polysaccharide, 00:00:00 [place] [facility] PPSV23 (PNEUMOVAX) Branch Influenza Virus 2018-09-04 Completed [facility] of Vaccine Quad .5 mL 00:00:00 [facility] [place] [facility] 6+ MO Branch Pneumococcal 2018-09-04 Completed [facility] o f Polysaccharide, 00:00:00 [place] [facility] PPSV23 (PNEUMOVAX) Branch Influenza Virus 2018-09-04 Completed [facility] of Vaccine Quad .5 mL 00:00:00 [facility] [place] [facility] 6+ MO Branch Pneumococcal 2018-09-04 Completed [facility] o f Polysaccharide, 00:00:00 [place] [facility] PPSV23 (PNEUMOVAX) Branch Influenza Virus 2018-09-04 Completed [facility] of Vaccine Quad .5 mL 00:00:00 [facility] [place] [facility] IM 6+ MO Branch Pneumococcal 2018-09-04 Completed [facility] o f Polysaccharide, 00:00:00 [place] [facility] PPSV23 (PNEUMOVAX) Branch Influenza Virus 2018-09-04 Completed [facility] Vaccine Quad .5 mL 00:00:00 [place] [facility] 6+ MO Branch Pneumococcal 2018-09-04 Completed University o f Polysaccharide, 00:00:00 [place] [facility] PPSV23 (PNEUMOVAX) Branch Influenza Virus 2018-09-04 Completed Universit y of Vaccine Quad .5 mL 00:00:00 [place] [facility] 6+ MO Branch Pneumococcal 2018-09-04 Completed University o f Polysaccharide, 00:00:00 [place] [facility] PPSV23 (PNEUMOVAX) Branch Influenza Virus 2018-09-04 Completed Universit y of Vaccine Quad .5 mL 00:00:00 [place] [facility] 6+ MO Branch Pneumococcal 2018-09-04 Completed University o f Polysaccharide, 00:00:00 [place] [facility] PPSV23 (PNEUMOVAX) Branch Influenza Virus 2018-09-04 Completed Universit y of Vaccine [facility] .5 mL 00:00:00 [place] [facility] 6+ MO Branch Pneumococcal 2018-09-04 Completed University o f Polysaccharide, 00:00:00 [place] [facility] PPSV23 (PNEUMOVAX) Branch Influenza Virus 2018-09-04 Completed Universit y of Vaccine [facility] .5 mL 00:00:00 [place] [facility] 6+ MO Branch Pneumococcal 2018-09-04 Completed University o f Polysaccharide, 00:00:00 [place] [facility] PPSV23 (PNEUMOVAX) Branch Influenza Virus 2018-09-04 Completed Universit y of Vaccine Quad .5 mL 00:00:00 [place] [facility] 6+ MO Branch Pneumococcal 2018-09-04 Completed University o f Polysaccharide, 00:00:00 [place] [facility] PPSV23 (PNEUMOVAX) Branch Influenza Virus 2018-09-04 Completed Universit y of Vaccine Quad .5 mL 00:00:00 [place] [facility] 6+ MO Branch Pneumococcal 2018-09-04 Completed University o f Polysaccharide, 00:00:00 [place] [facility] PPSV23 (PNEUMOVAX) Branch Influenza Virus 2018-09-04 Completed Universit y of Vaccine Quad .5 mL 00:00:00 [place] [facility] 6+ MO Branch Pneumococcal 2018-09-04 Completed University o f Polysaccharide, 00:00:00 [place] [facility] PPSV23 (PNEUMOVAX) Branch Influenza Virus 2018-09-04 Completed Universit y of Vaccine Quad .5 mL 00:00:00 [place] [facility] 6+ MO Branch Pneumococcal 2018-09-04 Completed University o f Polysaccharide, 00:00:00 [place] [facility] PPSV23 (PNEUMOVAX) Branch Influenza Virus 2018-09-04 Completed Universit y of Vaccine Quad .5 mL 00:00:00 [place] [facility] 6+ MO Branch Pneumococcal 2018-09-04 Completed University o f Polysaccharide, 00:00:00 [place] [facility] PPSV23 (PNEUMOVAX) Branch Influenza Virus 2018-09-04 Completed Universit y of Vaccine Quad .5 mL 00:00:00 [place] [facility] 6+ MO Branch Pneumococcal 2018-09-04 Completed University o f Polysaccharide, 00:00:00 [place] [facility] PPSV23 (PNEUMOVAX) Branch Influenza Virus 2018-09-04 Completed Universit y of Vaccine Quad .5 mL 00:00:00 [place] [facility] 6+ MO Branch Pneumococcal 2018-09-04 Completed University o f Polysaccharide, 00:00:00 [place] [facility] PPSV23 (PNEUMOVAX) Branch Influenza Virus 2018-09-04 Completed Universit y of Vaccine Quad .5 mL 00:00:00 [facility] 6+ MO Branch Pneumococcal 2018-09-04 Completed University o f Polysaccharide, 00:00:00 [place] [facility] PPSV23 (PNEUMOVAX) Branch Influenza Virus 2018-09-04 Completed Universit y of Vaccine Quad .5 mL 00:00:00 [facility] 6+ MO Branch Pneumococcal 2018-09-04 Completed University o f Polysaccharide, 00:00:00 [place] [facility] PPSV23 (PNEUMOVAX) Branch Influenza Virus 2018-09-04 Completed Universit y of Vaccine Quad .5 mL 00:00:00 [facility] 6+ MO Branch Pneumococcal 2018-09-04 Completed University o f Polysaccharide, 00:00:00 [place] [facility] PPSV23 (PNEUMOVAX) Branch Influenza Virus 2018-09-04 Completed Universit y of Vaccine Quad .5 mL 00:00:00 [place] [facility] 6+ MO Branch Vital Signs Vital Name Observation Time Observation Value Comments Source Systolic blood 2023-01-18 14:29:00 161 mm[Hg] Univer sity of pressure [facility] Diastolic blood 2023-01-18 14:29:00 93 mm[Hg] Unive rsity of pressure [facility] Oxygen saturation in 2023-01-18 14:29:00 100 /min University of Arterial blood by [facility] Pulse oximetry Branch Respiratory rate 2023-01-18 14:25:00 15 /min Univ ersity of [place] [facility] Heart rate 2023-01-18 14:15:00 87 /min [facility]i ty [facility] [place] [facility] Body temperature 2023-01-18 14:03:00 36.39 Char Univ ersity of [place] [facility] Body height 2023-01-16 16:00:00 167.6 cm [facility]i [facility] [place] [facility] Body weight 2023-01-16 16:00:00 100.245 kg [facility] [place] [facility] BMI 2023-01-16 16:00:00 35.67 kg/m2 [facility] [place] [facility] Systolic blood 2023-01-18 12:43:00 162 mm[Hg] Univer sity of pressure [facility] [place] [facility] Diastolic blood 2023-01-18 12:43:00 91 mm[Hg] Unive rsity of pressure [facility] [place] [facility] Heart rate 2023-01-18 12:43:00 89 /min [facility]i ty [facility] [place] [facility] Body temperature 2023-01-18 12:43:00 36.33 Char Univ ersity of [place] [facility] Respiratory rate 2023-01-18 12:43:00 18 /min Univ ersity of [place] [facility] Oxygen saturation in 2023-01-18 12:43:00 98 /min University of Arterial blood by [facility] Pulse oximetry Branch Body height 2023-01-16 16:00:00 167.6 cm [facility]i ty [facility] [place] [facility] Body weight 2023-01-16 16:00:00 100.245 kg [facility]i [facility] [place] [facility] BMI 2023-01-16 16:00:00 35.67 kg/m2 [facility] [place] [facility] Systolic blood 2023-01-10 16:37:00 159 mm[Hg] Univer sity of pressure [facility] [place] [facility] Diastolic blood 2023-01-10 16:37:00 95 mm[Hg] Unive rsity of pressure [facility] [place] [facility] Heart rate 2023-01-10 16:37:00 88 /min [facility]i ty [facility] [place] [facility] Oxygen saturation in 2023-01-10 16:37:00 98 /min University of Arterial blood by [facility] Pulse oximetry Branch Body temperature 2023-01-10 16:36:00 36.94 Char Univ ersity of [place] [facility] Respiratory rate 2023-01-10 16:36:00 18 /min Univ ersity of [place] [facility] Body weight 2023-01-10 16:36:00 100.562 kg [facility]i ty [facility] [place] [facility] BMI 2023-01-10 16:36:00 35.78 kg/m2 [facility] [place] [facility] Systolic blood 2023-01-07 09:19:00 140 mm[Hg] Univer sity of pressure [facility] [place] [facility] Diastolic blood 2023-01-07 09:19:00 98 mm[Hg] Unive rsity of pressure [facility] [place] [facility] Heart rate 2023-01-07 09:19:00 77 /min [facility]i ty [facility] [place] [facility] Body temperature 2023-01-07 09:19:00 36 Char Univ ersity of [place] [facility] Respiratory rate 2023-01-07 09:19:00 20 /min Univ ersity of [place] [facility] Body height 2023-01-07 09:19:00 167.6 cm [facility]i ty [facility] [place] [facility] Body weight 2023-01-07 09:19:00 92.987 kg [facility]i [facility] [place] [facility] BMI 2023-01-07 09:19:00 33.09 kg/m2 [facility] [place] [facility] Oxygen saturation in 2023-01-07 09:19:00 99 /min University of Arterial blood by [place] [facility] Pulse oximetry Branch Systolic blood 2023-01-04 00:39:00 148 mm[Hg] Univer sity of pressure [facility] [place] [facility] Diastolic blood 2023-01-04 00:39:00 91 mm[Hg] Unive rsity of pressure [facility] [place] [facility] Heart rate 2023-01-04 00:39:00 81 /min Universi ty of [place] [facility] Respiratory rate 2023-01-04 00:39:00 18 /min Univ ersity of [facility] Branch Oxygen saturation in 2023-01-04 00:39:00 99 /min University of Arterial blood by [place] [facility]ayne Pulse oximetry Branch Body temperature 2023-01-03 22:43:00 37.22 Char Univ ersity of [place] [facility] Body weight 2023-01-03 22:43:00 92.534 kg [facility]i [facility] [place] [facility] BMI 2023-01-03 22:43:00 32.93 kg/m2 [facility] [place] [facility] Systolic blood 2022-12-30 08:00:00 157 mm[Hg] Univer sity of pressure [facility] [place] [facility] Diastolic blood 2022-12-30 08:00:00 88 mm[Hg] Unive rsity of pressure [facility] [place] [facility] Heart rate 2022-12-30 08:00:00 85 /min [facility]i ty [facility] [place] [facility] Respiratory rate 2022-12-30 08:00:00 14 /min Univ ersity of [place] [facility] Oxygen saturation in 2022-12-30 08:00:00 97 /min University of Arterial blood by [place] [facility]ne Pulse oximetry Branch Body temperature 2022-12-30 05:45:00 36.89 Char Univ ersity of [place] [facility] Body height 2022-12-30 05:45:00 167.6 cm [facility] [place] [facility] Body weight 2022-12-30 05:45:00 92.534 kg [facility] [place] [facility] BMI 2022-12-30 05:45:00 32.93 kg/m2 [facility] [place] [facility] Systolic blood 2022-11-02 15:20:00 134 mm[Hg] Univer sity of pressure [facility] [place] [facility] Diastolic blood 2022-11-02 15:20:00 88 mm[Hg] Unive rsity of pressure [facility] [place] [facility] Heart rate 2022-11-02 15:20:00 85 /min [facility]i ty [facility] [place] [facility] Respiratory rate 2022-11-02 15:20:00 16 /min Univ ersity of [place] [facility] Oxygen saturation in 2022-11-02 15:20:00 97 /min University of Arterial blood by [place] [facility]ne Pulse oximetry Branch Body temperature 2022-11-02 15:00:00 36.67 Char Univ ersity of [place] [facility] Body height 2022-11-01 19:00:00 167.6 cm [facility] [place] [facility] Body weight 2022-11-01 19:00:00 90.719 kg [facility] [place] [facility] BMI 2022-11-01 19:00:00 32.28 kg/m2 [facility] [place] [facility] Systolic blood 2022-11-02 14:31:00 145 mm[Hg] Univer sity of pressure [facility] [place] [facility] Diastolic blood 2022-11-02 14:31:00 78 mm[Hg] Unive rsity of pressure [facility] [place] [facility] Heart rate 2022-11-02 14:31:00 82 /min [facility]i ty [facility] [place] [facility] Body temperature 2022-11-02 14:31:00 37 Char Univ ersity of [place] [facility] Respiratory rate 2022-11-02 14:31:00 19 /min Univ ersity of [place] [facility] Oxygen saturation in 2022-11-02 14:31:00 99 /min University of Arterial blood by [place] [facility] Pulse oximetry Branch Body height 2022-11-01 19:00:00 167.6 cm [facility]i ty [facility] [place] [facility] Body weight 2022-11-01 19:00:00 90.719 kg [facility] [place] [facility] BMI 2022-11-01 19:00:00 32.28 kg/m2 [facility] [place] [facility] Systolic blood 2022-09-14 16:15:00 147 mm[Hg] Univer sity of pressure [facility] [place] [facility] Diastolic blood 2022-09-14 16:15:00 88 mm[Hg] Unive rsity of pressure [facility] [place] [facility] Heart rate 2022-09-14 16:14:00 90 /min [facility] [place] [facility] Body temperature 2022-09-14 16:14:00 36.56 Char Univ ersity [facility] [place] [facility] Body height 2022-09-14 16:14:00 152.4 cm [facility] [place] [facility] Body weight 2022-09-14 16:14:00 94.802 kg [facility] ty [facility] [place] [facility] BMI 2022-09-14 16:14:00 40.82 kg/m2 [facility] [place] [facility] Oxygen saturation in 2022-09-14 16:14:00 98 /min University of Arterial blood by [place] [facility] Pulse oximetry Branch Systolic blood 2022-09-12 17:00:00 107 mm[Hg] Univer sity of pressure [facility] [place] [facility] Diastolic blood 2022-09-12 17:00:00 65 mm[Hg] Unive rsity of pressure [facility] [place] [facility] Heart rate 2022-09-12 16:59:00 95 /min [facility]i ty [facility] [place] [facility] Body height 2022-09-12 16:59:00 167.6 cm [facility] [place] [facility] Body weight 2022-09-12 16:59:00 94.348 kg [facility] [place] [facility] BMI 2022-09-12 16:59:00 33.57 kg/m2 [facility] [place] [facility] Oxygen saturation in 2022-09-12 16:59:00 97 /min University of Arterial blood by [facility] jayne Pulse oximetry Branch Systolic blood 2022-09-11 21:31:00 169 mm[Hg] Univer sity of pressure [facility] [place] [facility] Diastolic blood 2022-09-11 21:31:00 121 mm[Hg] Unive rsity of pressure [facility] [place] [facility] Heart rate 2022-09-11 21:24:00 78 /min [facility]i ty [facility] [place] [facility] Body weight 2022-09-11 21:24:00 94.711 kg [facility] [place] [facility] BMI 2022-09-11 21:24:00 33.70 kg/m2 [facility] [place] [facility] Oxygen saturation in 2022-09-11 21:24:00 97 /min University of Arterial blood by [facility] Pulse oximetry Branch Systolic blood 2022-08-02 16:08:00 125 mm[Hg] Univer sity of pressure [facility] [place] [facility] Diastolic blood 2022-08-02 16:08:00 78 mm[Hg] Unive rsity of pressure [facility] [place] [facility] Heart rate 2022-08-02 16:08:00 88 /min [facility]i ty [facility] [place] [facility] Body temperature 2022-08-02 16:08:00 36.44 Char Univ ersity [facility] [place] [facility] Body height 2022-08-02 16:08:00 167.6 cm [facility] [place] [facility] Body weight 2022-08-02 16:08:00 96.344 kg [facility] [place] [facility] BMI 2022-08-02 16:08:00 34.28 kg/m2 [facility] [place] [facility] Oxygen saturation in 2022-08-02 16:08:00 97 /min University of Arterial blood by [facility] Pulse oximetry Branch Systolic blood 2021-11-23 20:37:00 120 mm[Hg] Univer sity of pressure [facility] [place] [facility] Diastolic blood 2021-11-23 20:37:00 80 mm[Hg] Unive rsity of pressure [facility] [place] [facility] Heart rate 2021-11-23 20:37:00 87 /min [facility] [place] [facility] Body height 2021-11-23 20:37:00 170.2 cm [facility] [place] [facility] Body weight 2021-11-23 20:37:00 95.907 kg [facility] [place] [facility] BMI 2021-11-23 20:37:00 33.12 kg/m2 [facility] [place] [facility] Oxygen saturation in 2021-11-23 20:37:00 96 /min University of Arterial blood by [facility] jayne Pulse oximetry Branch Systolic blood 2021-11-23 20:37:00 120 mm[Hg] Univer sity of pressure [facility] [place] [facility] Diastolic blood 2021-11-23 20:37:00 80 mm[Hg] Unive rsity of pressure [facility] [place] [facility] Heart rate 2021-11-23 20:37:00 87 /min [facility] ty [facility] [place] [facility] Body height 2021-11-23 20:37:00 170.2 cm [facility] [place] [facility] Body weight 2021-11-23 20:37:00 95.907 kg [facility] [place] [facility] BMI 2021-11-23 20:37:00 33.12 kg/m2 [facility] [place] [facility] Oxygen saturation in 2021-11-23 20:37:00 96 /min University of Arterial blood by [facility] jayne Pulse oximetry Branch Systolic blood 2021-11-23 20:37:00 120 mm[Hg] Univer sity of pressure [facility] [place] [facility] Diastolic blood 2021-11-23 20:37:00 80 mm[Hg] Unive rsity of pressure [facility] [place] [facility] Heart rate 2021-11-23 20:37:00 87 /min [facility] ty [facility] [place] [facility] Body height 2021-11-23 20:37:00 170.2 cm [facility] [place] [facility] Body weight 2021-11-23 20:37:00 95.907 kg [facility] [place] [facility] BMI 2021-11-23 20:37:00 33.12 kg/m2 [facility] [place] [facility] Oxygen saturation in 2021-11-23 20:37:00 96 /min University of Arterial blood by [facility] Pulse oximetry Branch Procedures Procedure Date / Time Performing Source Performed Clinician EXTERNAL PROVIDER RECORDS 2023-02-14 Doctor Unassigned, [facility] [place] 05:01:00 [facility] PHACOEMULSIFICATION OF 2023-01-18 Haydee, [facility] CATARACT WITH INTRAOCULAR 13:29:00 Quinn [place] LENS IMPLANT POCT GLUCOSE (AUTOMATED) 2023-01-18 Haydee, Carol [facility] 12:46:00 [facility] POCT GLUCOSE (AUTOMATED) 2023-01-18 Haydee, [facility] 12:46:00 [facility] PATIENT QUESTIONNAIRE 2023-01-18 Doctor Unassigned, [facility] 05:01:00 [facility] PATIENT FINANCIAL POLICY 2023-01-10 Doctor Unassigned, [facility] 15:48:56 [place] [facility] [place] XR PELVIS <3 VW 2023-01-07 Digna Jaime [facility] 09:35:29 Medical Branch COMP. METABOLIC PANEL (69993) 2022-12-30 [facility] 06:02:00 [facility] Branch CBC WITH DIFF 2022-12-30 Tucker Henry [facility] 06:02:00 [facility] [place] RAPID INFLUENZA A/B 2022-12-30 Tucker Henry [facility] 06:02:00 Medical Branch COVID-19 (ID NOW RAPID 2022-12-30 Tucker Henry [facility] TESTING) 06:02:00 Medical Branch PHACOEMULSIFICATION OF 2022-11-02 Haydee, [facility] CATARACT WITH INTRAOCULAR 14:27:00 Quinn London LENS IMPLANT POCT GLUCOSE (AUTOMATED) 2022-11-02 Haydee [facility] 13:14:00 [facility] POCT GLUCOSE (AUTOMATED) 2022-11-02 Haydee [facility] 13:14:00 [facility] PATIENT QUESTIONNAIRE 2022-11-02 Doctor Andrasschristine, [facility] 06:01:00 [facility] CONSENT/REFUSAL FOR DIAGNOSIS 2022-10-24 Doctor Unassigned, [facility] AND TREATMENT 16:36:27 [facility] CONSENT/REFUSAL FOR DIAGNOSIS 2022-10-24 Doctor Unassigned, [facility] 16:36:27 [facility] ASSIGNMENT OF BENEFITS 2022-10-24 Doctor Unassigned, [facility] 16:36:04 [facility] ASSIGNMENT OF BENEFITS 2022-10-24 Doctor Unassigned, [facility] 16:36:04 [facility] MEDICAL RELEASE/CLEARANCE 2022-09-21 [facility] 06:[facility]00 [facility] POCT HEMOGLOBIN A1C TEST 2022-09-11 Donald Liu [facility] [place] 21:34:00 Medical Branch SARS-COV-2 COVID-19 VACCINE 2022-08-02 Doctor Unassigned, [facility] 12 YRS+, BIVALENT 0.5ML, IM 17:12:54 [place] [facility] (MODERNA BOOSTER) MEDICAL RELEASE/CLEARANCE 2022-05-17 [facility]ass[facility] 05:01[facility]00 [facility] Encounters Start End Encounter Admission Attending Care Care Encounter Source Date/Time Date/Time Type Type Clinicians Facility Department ID 2022-11-07 Outpatient Anthony HUBBARD [facility] OPH [id number] Univers 15:33:07 CAROL ity of [facility] 2021-08-09 Emergency [facility] [id number] Univers 06:27:42 ity of [facility] 2021-08-08 Emergency [facility] [id number] Univers 15:20:30 ity of [facility] 2021-08-08 Emergency [facility] [id number] Univers 07:13:41 ity of [facility] 2021-08-07 Emergency [facility] [id number] Univers 23:22:24 ity of [facility] 2021-08-07 Outpatient VINOD JARAMILLO [facility] OPH [id number] Univers 08:56:28 ity of [facility] 2021-08-06 Emergency [facility] [id number] Univers 07:34:08 ity of [facility] Branch 2021-08-06 Emergency [facility] [id number] Univers 04:45:02 ity of [facility] Branch 2021-08-06 Emergency [facility] [id number] Univers 01:58:16 ity of [facility] Branch 2021-08-05 Emergency [facility] [id number] Univers 16:50:32 ity of [facility] 2021-08-05 Emergency [facility] [id number] Univers 11:41:26 ity of [facility] 2021-08-05 Emergency [facility] [id number] Univers 11:21:40 ity of [facility] 2021-08-05 Emergency [facility] [id number] Univers 07:31:42 ity of [facility] 2021-08-05 Emergency [facility] [id number] Univers 06:09:50 ity of [facility] 2021-08-05 Outpatient R VINOD FLORES [facility] VLS [id number] Univers 05:59:48 ity of [facility] 2021-08-04 Emergency [facility] [id number] Univers 22:50:20 ity of [facility] 2021-08-04 Emergency [facility] [id number] Univers 21:37:05 ity [facility] 2023-09-14 2023-09-14 [id number] Univers 10:30:00 10:30:00 ROSALIA [facility] 2023-03-04 2023-03-04 [facility] [id number] Univers 00:00:00 00:00:00 [facility] [id number] it y of [place] [id number] Shamir as KOSTA?BLEA [phone] [address] MEDICAL OFFICE BUILDING 2023-02-14 2023-02-14 Orders Doctor GAUDENCIO [id number] Univers 00:00:00 00:00:00 Only Unassigned, MARCO [id number] ity of [place] [facility] [id number] Shamir as [id number] [address] 2023-01-24 2023-01-24 Outpatient R ARCHANA [facility] [id number] Univers 11:00:00 11:00:00 ANAI ity [facility] 2023-01-18 2023-01-18 Outpatient R HAYDEE [facility] OPH [id number] Univers 07:32:00 09:35:00 CAROL y [facility] 2023-01-18 2023-01-18 Hospital [facility] [id number] Univers 07:32:00 09:35:00 Encounter Carol MOTLEY [id number] ity of [id number] [id number] [facility] [address] [place] 2023-01-18 2023-01-18 Surgery [facility] [id number] Univers 07:55:00 08:34:00 Carol MOTLEY [id number] i ty of [id number] [id number] [facility] [address] [place] 2023-01-18 2023-01-18 Orders Doctor RATLIFF [id number] Univers 00:00:00 00:00:00 Only Unassigned, MARCO [id number] ity of [place] [facility] [id number] Shamir as [id number] [address] 2023-01-10 2023-01-10 [facility] [id number] Univers 11:20:00 12:04:17 IRMA ity of [facility] 2023-01-10 2023-01-10 Office [facility] [id number] Univers 11:20:00 12:04:17 Visit Irma MOTLEY [id number] i ty of [id number] [id number] Ca dictn NAL [address] [place] [address] 2023-01-10 2023-01-10 [facility]phone [facility] [id number] Univers 00:00:00 00:00:00 Zeny MOTLEY [id number] ity [id number] [id number] Ca dical NAL 9 [facility] 2023-01-10 2023-01-10 Orders Doctor RATLIFF 1.2.840.114 [id number] Univers 00:00:00 00:00:00 Only Unassigned, MARCO [id number] ity of [place] [facility] [id number] Shamir as [phone] [facility] 009 Branch 2023-01-10 2023-01-10 Refmerna [facility] 1.2.840.114 [id number] Univers 00:00:00 00:00:00 [facility] [id number] it y of [place] [id number] Shamir as KOSTA?BLEA [id number] Ca gaurav [address] MEDICAL OFFICE BUILDING 2023-01-09 2023-01-09 Outpatient R PEE [facility] [id number] Univers 15:40:00 15:40:00 IRMA [facility] 2023-01-07 2023-01-07 Emergency X [facility] E[facility] [id number] Univers 04:15:00 06:06:00 DIGNA [facility] 2023-01-07 2023-01-07 Emergency [facility] [id number] Univers 04:15:00 06:06:00 Digna MOTLEY [id number] ity of [place] [id number] [facility] [id number] [address] 2023-01-04 2023-01-04 Outpatient SFA [facility] [id number] Melecio 11:36:12 11:36:12 0330 F Cesar 2023-01-03 2023-01-03 Emergency X ROSELIA [facility] ERT [id number] Univers 17:46:00 20:14:00 FOLANANDO [facility] Center 2023-01-03 2023-01-03 Emergency [facility] 1.2.840.114 [id number] Univers 17:46:00 20:14:00 Soledad MOTLEY 350.1.13.10 ity of [facility] 4.2.7.2.686 [facility] [id number] [address] 2023-01-02 2023-01-02 Outpatient [facility] [id number] Univers 10:30:00 10:30:00 [facility] ity [facility] 2023-01-02 2023-01-02 Refmerna [facility]MIN[facility] 1.2.840.114 [id number] Univers 00:00:00 00:00:00 Sendil Arti MOTLEY 350.1.13.10 ity of [facility] 4.2.7.2.[place] [id number] [place] dic[place]le [place] 639429 [facility] 2022-12-30 2022-12-30 Emergency X [facility] ERT [id number] Univers 00:39:00 03:42:00 TUCKER ity [facility] 2022-12-30 2022-12-30 [facility] 1.2.544.288 [id number] Univers 00:39:00 03:42:00 Tucker MOTLEY 350.1.13.10 it[place] of [place]2.7.2.[place] [id number] [address] 2022-12-27 2022-12-27 Outpatient Anthony [facility] [id number] Univers 13:00:00 13:00:00 ANAI valdivia [facility] 2022-12-20 2022-12-20 Refmerna [facility] 1.2.840.114 [id number] Univers 00:00:00 00:00:00 Zeny MOTLEY 350.1.13.10 ity of [place] [id number] Ca dictn NAL [address] [place] [address] 2022-12-19 2022-12-19 Refmerna [facility] 1.2.840.114 [id number] Univers 00:00:00 00:00:00 Senddanyel MOTLEY 350.1.13.10 ity of [facility] 4.2.7.2.[place] [id number] Ca dical NAL 9 [facility] 2022-12-13 2022-12-13 Outpatient R [facility] [id number] Univers 10:30:00 10:30:00 ANAI valdivia [facility] 2022-11-23 2022-11-23 Refill Donald Liu [facility] 1.2.840.114 [id number] Univers 00:00:00 00:00:00 HEALTH 350.1.13.10 it y of [place] 4.2.7.2.686 Shamir as KOSTA?BLEA [id number] [address] MEDICAL OFFICE [facility] 2022-11-15 2022-11-15 Outpatient R JARRETT [facility] [id number] Univers 13:15:00 13:15:00 ORACIO valdivia o f [facility] 2022-11-12 2022-11-12 Refmerna [facility] 1.2.840.114 [id number] Univers 00:00:00 00:00:00 Zeny MOTLEY 350.1.13.10 ity of [place].2.[place] [id number] [facility] 059 [facility] 2022-11-09 2022-11-09 Refill [facility] 1.2.840.114 [id number] Univers 00:00:00 00:00:00 [place] HE[facility] 350.1.13.10 it y [facility] 4.2.7.2.686 Shamir as KOSTA?BLEA [id number] [address] OFFICE [facility] 2022-11-07 2022-11-07 Refmerna [facility]MIN[facility] 1.2.840.114 [id number] Univers 00:00:00 00:00:00 Anamaria HEALTH 350.1.13.10 it y [facility] 4.2.7.2.686 Shamir as KOSTA?BLEA [id number] [address] OFFICE [facility] 2022-11-02 2022-11-02 Outpatient R HAYDEE [facility] OPH [id number] Univers 07:02:00 09:35:00 CAROL valdivia [facility] 2022-11-02 2022-11-02 [facility] 1.2.840.114 [id number] Univers 07:02:00 09:35:00 Encounter Carol MOTLEY 350.1.13.10 ity of [place].2.7.2.686 [place]ICAL [id number] [facility] [address] 2022-11-02 2022-11-02 Surgery Haydee [facility] 1.2.840.114 [id number] 17 Univers 08:01:00 08:40:00 Carol MOTLEY 350.1.13.10 i ty of [place] 4.2.7.2.686 [place] [id number] [facility] [address] 2022-11-02 2022-11-02 Orders Doctor GAUDENCIO 1.2.840.114 [id number] Univers 00:00:00 00:00:00 Only Unassigned, MARCO 350.1.13.10 ity of [place] [facility] 4.2.7.2.686 Shamir as [phone] [address] 2022-09-29 2022-09-29 [facility] 1.2.840.114 [id number] Univers 00:00:00 00:00:00 [facility] 350.1.13.10 it y of [place] 4.2.7.2.686 Shamir as KOSTA?BLEA [id number] [facility] [address] MEDICAL OFFICE [facility] 2022-09-29 2022-09-29 Telephone Donald Liu [facility] 1.2.301.190 [id number] [id number] Univers 00:00:00 00:00:00 HEALTH 350.1.13.10 it y of [place] 4.2.7.2.686 Shamir as KOSTA?BLEA [id number] [facility] [address] MEDICAL OFFICE [facility] 2022-09-27 2022-09-27 Telephone [facility] 1.2.853.007 [id number] Univers 00:00:00 00:00:00 Yasmeen MOTLEY 350.1.13.10 ity of [place] [id number] [facility] 059 [facility] 2022-09-26 2022-09-26 Refmerna [facility] 1.2.840.114 [id number] Univers 00:00:00 00:00:00 Zeny MOTLEY 350.1.13.10 ity of [place] 4.2.7.2.[place] [phone] [facility] 059 [facility] 2022-09-26 2022-09-26 Telephone Donald Liu [facility] 1.2.898.019 [id number] [id number] Univers 00:00:00 00:00:00 HEALTH 350.1.13.10 it y of [place] 4.2.7.2.686 Shamir as KOSTA?BLEA [id number] [facility] 220 [facility] OFFICE [facility] 2022-09-21 2022-09-21 Telephone [facility] 1.2.567.260 [id number] [id number] Univers 00:00:00 00:00:00 Zeny MOTLEY 350.1.13.10 ity of [place] 4.2.7.2.[place] [phone] [address] 2022-09-21 2022-09-21 Orders Doctor GAUDENCIO 1.2.840.114 [id number] Univers 00:00:00 00:00:00 Only Unassigned, MARCO 350.1.13.10 ity of [place] [facility] 4.2.7.2.686 Shamir as [id number] [address] 2022-09-14 2022-09-14 Outpatient [facility] [id number] Univers 10:00:00 10:45:08 ANAI ity of [facility] 2022-09-14 2022-09-14 Office [facility] 1.2.840.114 [id number] Univers 10:00:00 10:45:08 Visit Anai [facility] 350.1.13.10 i ty of [place] 4.2.7.2.686 Shamir as KOSTA?BLEA [id number] [facility] 044 [facility] OFFICE [facility] 2022-09-14 2022-09-14 Telephone [facility] 1.2.703.509 [id number] Univers 00:00:00 00:00:00 Zeny MOTLEY 350.1.13.10 ity of [place] 4.2.7.2.686 [place] [phone] Ca cecial NAL 059 [facility] 2022-09-12 2022-09-12 Outpatient R JORGE [facility] [id number] Univers 11:00:00 11:23:00 ROSALIA [facility] 2022-09-12 2022-09-12 Office [facility] 1.2.840.114 [id number] Univers 11:00:00 11:23:[address] [facility] 350.1.13.10 it y of [place] 4.2.7.2.686 Shamir as KOSTA?BLEA [phone] Ca gaurav CERVANTES 092 [facility] OFFICE [facility] 2022-09-11 2022-09-11 Outpatient R DONALD LIU [facility] [id number] Univers 15:30:00 16:09:10 DONALD LIU [facility] 2022-09-11 2022-09-11 Office Ysabel [facility] 1.2.840.114 [id number] Univers 15:30:00 16:09:10 Visit HEALTH 350.1.13.10 it y of [place] 4.2.7.2.686 Shamir as KOSTA?BLEA [id number] [facility] 220 [facility] OFFICE [facility] 2022-09-06 2022-09-06 Refill De[facility] 1.2.840.114 [id number] Univers 00:00:00 00:00:00 [facility] HEALTH 350.1.13.10 it y of [place] 4.2.7.2.686 Shamir as KOSTA?BLEA [id number] [address] OFFICE [facility] 2022-08-25 2022-08-25 Telephone [facility] 1.2.822.123 [id number] Univers 00:00:00 00:00:00 [facility] HEALTH 350.1.13.10 it y of [place] 4.2.7.2.686 Shamir as KOSTA?BLEA [id number] [address] OFFICE [facility] 2022 2022 Damian FarrellMINERS' [facility] 1.2.840.114 [id number] Univers 00:00:00 00:00:00 [facility] 350.1.13.10 ity of [place] 4.2.7.2.686 Shamir as KOSTA?BLEA [phone] Ca gaurav CERVANTES [address] MEDICAL OFFICE [facility] 2022-08-11 2022-08-11 Outpatient R DEEDEE [facility] [id number] Univers 10:30:00 10:30:00 ANAMARIA itantonio [facility] 2022-08-07 2022-08-07 Refill [facility] 1.2.840.114 [id number] Univers 00:00:00 00:00:00 [facility] 350.1.13.10 it y of [facility] 4.2.7.2.686 Shamir as KOSTA?BLEA [phone] Ca gaurav CERVANTES 220 [facility] OFFICE [facility] 2022-08-02 2022-08-02 Imm/Inj Vaccine, [facility] 1..840.114 [id number] Univers 13:00:00 13:10:00 Visit Akin Howell 350.1.13 .10 ity of [facility] 4.2.7.2.[place] [id number] Ca dical NAL 044 [facility] 2022-08-02 2022-08-02 Office P[facility] 1.2.840.114 [id number] Univers 11:20:00 12:00:00 Visit Irma MOTLEY 350.1.13.10 i ty of [facility] 4.2.7.2.[place] [id number] Ca dical NAL 059 [facility] 2022-08-02 2022-08-02 Outpatient R PEE [facility] [id number] Univers 11:20:00 11:20:00 IRMA valdivia [facility] 2022-08-02 2022-08-02 Outpatient R PEE [facility] [id number] Univers 11:20:00 11:20:00 IRMA valdivia [facility] 2022-07-20 2022-07-20 Clinic [facility] 1.2.840.114 [id number] Univers 00:00:00 00:00:00 Assessment [facility] 350.1.13.10 ity of [facility] 4.2.7.2.686 [place] JARR[place] [phone] Ca gaurav Douglas9 [facility] 2022-07-08 2022-07-08 Damian [facility] 1.2.840.114 [id number] Univers 00:00:00 00:00:00 Anamaria HEALTH 350.1.13.10 it y of [place] 4.2.7.2.686 Shamir as KOSTA?BLEA [id number] [address] OFFICE [facility] 2022-07-07 2022-07-07 Outpatient R [facility] [id number] Univers 13:00:00 13:00:00 [facility] 2022-07-07 2022-07-07 Outpatient R [facility] [id number] Univers 13:00:00 13:00:00 [facility] 2022-06-28 2022-06-28 [facility] 1.2.840.114 [id number] Univers 00:00:00 00:00:00 Anamaria HEALTH 350.1.13.10 it y of [place] 4.2.7.2.686 Shamir as KOSTA?BLEA [id number] [address] 2022-06-17 2022-06-17 [facility] 1.2.840.114 [id number] Univers 00:00:00 00:00:00 Anamaria HEALTH 350.1.13.10 it y of [place] 4.2.7.2.686 Shamir as KOSTA?BLEA [id number] [address] 2022-06-08 2022-06-08 Damian [facility] 1.2.840.114 [id number] Univers 00:00:00 00:00:00 Anamaria HEALTH 350.1.13.10 it y of [place] 4.2.7.2.686 Shamir as KOSTA?BLEA [id number] [address] 2022-06-05 2022-06-05 Chivo [facility]MINERS[facility] 1.2.558.657 [id number] 8288 Univers 00:00:00 00:00:00 [facility] 350.1.13.10 it y of [place] 4.2.7.2.686 Shamir as KOSTA?BLEA [id number] Ca gaurav [address] MEDICAL OFFICE BUILDING 2022-05-24 2022-05-24 Outpatient R [facility] [id number] Univers 09:45:00 09:45:00 ity of [facility] 2022-05-17 2022-05-17 Orders Doctor GAUDENCIO 1.2.840.114 [id number] Univers 00:00:00 00:00:00 Only Unassigned, MARCO 350.1.13.10 ity of [place] [facility] 4.2.7.2.686 Shamir as [id number] [address] 2022-05-16 2022-05-16 Telephone DEE DEE Dee 1.2.734.775 [id number] Univers 00:00:00 00:00:00 Senddanyel BRIGGS 350.1.13.10 ity of HOSPITAL 4.2.7.2.686 Shamir as [id number] [place] 929760 [place] 2022-05-11 2022-05-11 Telephone DEE DEE Dee 1.2.569.688 [id number] 8998 Univers 00:00:00 00:00:00 Senddanyel BRIGGS 350.1.13.10 ity of HOSPITAL 4.2.7.2.686 Shamir as [id number] [place] 929760 [place] 2022-05-11 2022-05-11 Telephone DEE DEE Dee 1.2.175.827 [id number] 8998 Univers 00:00:00 00:00:00 Senddanyel YiHAndreas BRIGGS 350.1.13.10 ity of HOSPITAL 4.2.7.2.686 Shamir as [phone] [address] 2022-05-04 2022-05-04 Orders Doctor GAUDENCIO 1.2.840.114 [id number] Univers 00:00:00 00:00:00 Only Unassigned, MARCO 350.1.13.10 ity of [place] HOSPITAL 4.2.7.2.686 Shamir as [id number] [facility] [address] 2022-05-04 2022-05-04 [facility] 1.2.962.299 [id number] Univers 00:00:00 00:00:00 Zeny MOTLEY 350.1.13.10 ity of [facility] 4.2.7.2.[place] 487.5770904 Ca dictn NAL 9 [facility] 2022-05-04 2022-05-04 Telephone [facility] 1.2.928.217 [id number] Univers 00:00:00 00:00:00 Zeny MOTLEY 350.1.13.10 ity of [place] 4.2.7.2.[place] [phone] [place] 531019 [facility] 2022-04-27 2022-04-27 Telephone DEE DEE Dee 1.2.384.273 [id number] Univers 00:00:00 00:00:00 Zeny BRIGGS 350.1.13.10 ity of HOSPITAL 4.2.7.2.686 Shamir as [id number] [facility] [address] 2022-04-25 2022-04-25 Orders Doctor GAUDENCIO 1.2.840.114 [id number] Univers 00:00:00 00:00:00 Only Unassigned, MARCO 350.1.13.10 ity of [place] HOSPITAL 4.2.7.2.686 Shamir as [id number] [facility] [address] 2022-04-24 2022-04-24 Telephone [facility] 1.2.671.093 [id number] [id number] Univers 00:00:00 00:00:00 Zeny MOTLEY 350.1.13.10 ity of [place] 4.2.7.2.686 [place] [id number] [place] dicMichelle [place] 639429 [facility] 2022-04-14 2022-04-14 Damian [facility] 1.2.840.114 [id number] Univers 00:00:00 00:00:00 [facility] 350.1.13.10 it y of [place] 4.2.7.2.686 Shamir as KOSTA?BLEA 462.6534386 Ca gaurav CERVANTES 220 [facility] OFFICE [facility] 2022-04-13 2022-04-13 Telephone [facility] 1.2.440.859 [id number] Univers 00:00:00 00:00:00 Senddanyel MOTLEY 350.1.13.10 ity of [place] 4.2.7.2.[place] [id number] [facility] 059 [facility] 2022-04-12 2022-04-12 Telephone [facility] 1.2.152.596 [id number] Univers 00:00:00 00:00:00 Zeny MOTLEY 350.1.13.10 ity of [place] 4.2.7.2.686 [place] [id number] [place] 531019 [facility] 2022-04-12 2022-04-12 Telephone [facility] 1.2.418.479 [id number] 5335 Univers 00:00:00 00:00:00 [facility]el [facility] 350.1.13.10 ity of [place] 4.2.7.2.[place] [id number] [place] 531019 [facility] 2022-04-12 2022-04-12 Orders Doctor GAUDENCIO 1.2.840.114 [id number] Univers 00:00:00 00:00:00 Only Unassigned, MARCO 350.1.13.10 ity of [place] [facility] 4.2.7.2.686 Shamir as [id number] [address] 2022-03-29 2022-03-29 Telephone J[facility] 1.2.840.114 [id number] Univers 00:00:00 00:00:00 [facility] 350.1.13.10 ity of [place] 4.2.7.2.686 Shamir as KOSTA?BLEA [id number] Ca gaurav [place] 092 [facility] 2022-03-20 2022-03-20 Refill [facility]MIN[facility] 1.2.840.114 [id number] Univers 00:00:00 00:00:00 Sendil Trice.HAndreas [place] 350.1.13.10 ity of [facility] 4.2.7.2.686 [place] [id number] Ca dical [facility] 059 [facility] 2022-03-14 2022-03-14 Outpatient R RADIOLOGY [facility] [id number] Univers 13:26:48 23:59:00 ity of [facility] 2022-03-14 2022-03-14 Hospital Radiology [facility] 1.2.840.114 [id number] Univers 13:26:48 23:59:00 Encounter [place] 350.1.13.10 ity of [facility] 4.2.7.2.686 [place] C[place] [id number] [facility] [address] 2022-03-14 2022-03-14 Hospital Radiology [facility] 1.2.840.114 [id number] Univers 13:26:33 23:59:00 Encounter [place] 350.1.13.10 ity of [facility] 4.2.7.2.686 [place] [id number] [facility] [address] 2022-03-03 2022-03-03 Outpatient [facility] [id number] Univers 14:00:00 14:39:28 ANAMARIA [facility] 2022-03-03 2022-03-03 Outpatient R DEEDEE [facility] [id number] Univers 14:00:00 14:00:00 ANAMARIA [facility] 2022-03-03 2022-03-03 Transition YOSELIN Lo 1.2.840.114 [id number] Univers 00:00:00 00:00:00 of Skylar MORA 350.1.13.10 it y of [place].2.7.2.686 [place] [id number] [facility] [address] 2022-02-27 2022-03-02 Outpatient X XAIVER [facility] [id number] Univers 12:49:00 12:02:00 SHELDON valdivia [facility] 2022-02-27 2022-03-02 Emergency Chiqui Romero [facility] 1.2.840. 114 [id number] Univers 12:49:00 12:02:00 [place] 350.1.13.10 ity of [place] 4.2.7.2.686 [place] [id number] [facility] [address] 2022-02-27 2022-03-02 Outpatient X XAVIER [facility] [place] [id number] Univers 12:49:00 12:02:00 SHELDON valdivia [facility] 2022-02-28 2022-02-28 Outpatient R RONALD [facility] [id number] Univers 08:30:00 08:30:00 [facility] ity [facility] 2022-02-28 2022-02-28 Outpatient R RONALD [facility] [id number] Univers 08:30:00 08:30:00 [facility] 2022-02-28 2022-02-28 Outpatient R RONALD [facility] [id number] Univers 08:30:00 08:30:00 [facility] 2022-02-28 2022-02-28 Outpatient R RONALD [facility] [id number] Univers 08:30:00 08:30:00 [facility] 2022-02-25 2022-02-25 Damian Dee [facility] 1.2.840.114 [id number] Univers 00:00:00 00:00:00 Zeny MOTLEY 350.1.13.10 ity [facility] 4.2.7.2.686 [place] [facility] [phone] Ca gaurav MARCANO 059 [facility] 2022-02-22 2022-02-22 Damian Mark [facility] 1.2.840.114 [id number] Univers 00:00:00 00:00:00 Anamaria HEALTH 350.1.13.10 it y [facility] 4.2.7.2.686 Shamir as KOSTA?BLEA 465.7103890 Ca dicmarina KNEY [address] MEDICAL OFFICE BUILDING 2022-02-09 2022-02-09 Chivo Farrell [facility] 1.2.840.114 [id number] Univers 00:00:00 00:00:00 [facility] 350.1.13.10 ity [facility] 4.2.7.2.686 Shamir as KOSTA?BLEA 544.7291682 Ca dicmarina CERVANTES 092 [facility] OFFICE [facility] 2022-02-08 2022-02-08 Telephone Jami [facility] 1.2.840.114 [id number] Univers 00:00:00 00:00:00 [facility] 350.1.13.10 ity [facility] 4.2.7.2.686 Shamir as KOSTA?BLEA [id number] Ca gaurav CERVANTES 092 [facility] 2022-02-07 2022-02-07 Outpatient R RONALD [facility] [id number] Univers 10:00:00 10:00:00 [facility] 2022-01-30 2022-01-30 Outpatient R GABRIEL FARRELL [facility] [id number] Univers 11:00:00 11:00:00 GABRIEL FARRELL [facility] 2022-01-19 2022-01-19 Damian [facility] 1.2.840.114 [id number] Univers 00:00:00 00:00:00 Zeny Chi [place] 350.1.13.10 ity of [place].2.7.2.686 [place] ESS[place] [id number] Ca gaurav MARCANO 059 [facility] 2022-01-17 2022-01-17 Damian [facility] 1.2.840.114 [id number] Univers 00:00:00 00:00:00 [facility] 350.1.13.10 it y of [place] 4.2.7.2.686 Shamir as KOSTA?BLEA [id number] Ca dicmarina CERVANTES 220 [facility] OFFICE [facility] 2022-01-17 2022-01-17 Damian [facility] 1.2.840.114 [id number] Univers 00:00:00 00:00:00 [facility] 350.1.13.10 it y of [place] 4.2.7.2.686 Shamir as KOSTA?BLEA [id number] Ca dicmarina CERVANTES 220 [facility] OFFICE [facility] 2021-12-292021-12-29 Outpatient R AD [facility] [id number] Univers 10:30:00 10:30:00 PAULIE ity of [facility] 2021-12-24 2021-12-24 Emergency X [facility]SE [facility] ERT [id number] Univers 19:26:00 22:22:00 MAINE ity of [facility] 2021-12-24 2021-12-24 [facility] [id number] Univers 19:26:00 22:22:00 [place] [id number] [place] [phone] [facility] [address] 2021-12-12 2021-12-12 Telephone uLiz [facility] [id number] [id number] Univers 00:00:00 00:00:00 Sendil Arti [place] [id number] [id number] [phone] Ca dical NAL 059 [facility] 2021-12-07 2021-12-07 Telephone [facility] [id number] Univers 00:00:00 00:00:00 Anamaria [place] 350.1.13.10 i ty [place] [phone] Ca dical NAL 220 [facility] 2021-12-07 2021-12-07 Orders Doctor GAUDENCIO [id number] Univers 00:00:00 00:00:00 Only Unassigned, MARCO 350.1.13.10 ity of [place] [facility] 4.2.7.2.686 Shamir as [phone] [facility] [address] 2021-12-05 2021-12-05 Telephone [facility] [id number] [id number] Univers 00:00:00 00:00:00 Anamaria LITTLEJOHNPEC 350.1.13.10 [place] [phone] [facility] AND B[facility] [address] [facility] 2021-11-25 2021-11-25 [place] [facility], Ang - Db [facility] 1.2.840.1 [id number] Univers 12:30:00 12:47:27 Visit Anamaria Mark [facility] [id number] ity [facility] 4.2.7.2.686 Shamir as KOSTA?BLEA [phone] Ca dical KNEY [address] [facility] 2021-11-25 2021-11-25 [facility] [id number] Univers 12:30:00 12:30:00 [facility] 2021-11-25 2021-11-25 [facility] [id number] Univers 11:30:00 12:24:20 [facility] 2021-11-25 2021-11-25 Outpatient R DEEDEE [facility] [id number] Univers 11:30:00 11:30:00 [facility] 2021-11-23 2021-11-23 Outpatient R LUIZ [facility] [id number] Univers 14:30:00 16:33:40 SENDIL [facility] 2021-11-23 2021-11-23 Office [facility] [id number] [id number] Univers 14:30:00 16:33:40 Visit Zeny [place] 350.1.13.10 ity [facility] 4[place]2.7.2.[place] [phone] Ca gaurav NAL 059 [facility] 2021-11-23 2021-11-23 [place] [place] [facility] [facility] [facility] [id number] Univers 14:30:00 16:33:40 SENDIL [facility] 2021-11-23 2021-11-23 Outpatient R LUIZ [facility] [id number] Univers 14:30:00 16:33:40 SENDIL [facility] 2021-11-23 2021-11-23 [facility] 1.2.840.114 [id number] Univers 14:30:00 16:33:40 Visit Zeny MOTLEY 350.1.13.10 ity [facility] [place] [phone] [facility] 059 [facility] 2021-11-23 2021-11-23 Outpatient R LUIZ [facility] [id number] Univers 14:30:00 16:33:40 SENDIL ity of [facility] 2021-11-23 2021-11-23 Office [facility] 1.2.840.114 [id number] Univers 14:30:00 16:33:40 Visit Zeny MOTLEY 350.1.13.10 ity [facility] [place] [phone] [address] 2021-11-21 2021-11-21 Refill [facility] 1.2.840.114 [id number] Univers 00:00:00 00:00:00 Lauren MOTLEY 350.1.13.10 i ty of [facility] [place] [phone] [facility] 220 [facility] 2021-11-03 2021-11-03 Telephone [facility] 1.2.538.003 [id number] Univers 00:00:00 00:00:00 Lauren MOTLEY 350.1.13.10 i ty [facility] 4.[place] [phone] [facility] 220 [facility] 2021-11-02 2021-11-02 Orders Doctor GAUDENCIO 1.2.840.114 [id number] Univers 00:00:00 00:00:00 Only Unassigned, MARCO 350.1.13.10 ity of [place] [facility] 4.2.7.2.686 Shamir as [phone] [address] 2021-10-26 2021-10-26 Orders Doctor GAUDENCIO 1.2.840.114 [id number] Univers 00:00:00 00:00:00 Only Unassigned, MARCO 350.1.13.10 ity of [place] [facility] 4.2.7.2.686 Shamir as [phone] [facility] [address] [place] 2021-10-21 2021-10-21 Refmerna [facility] 1.2.840.114 [id number] 64 Univers 00:00:00 00:00:00 Sendil Arti [place] 350.1.13.10 ity of [facility] 4.2.[place] [phone] Ca dical NAL 059 [facility] 2021-10-21 2021-10-21 Refmerna [facility] 1.2.840.114 [id number] Univers 00:00:00 00:00:00 Wentong [place] 350.1.13.10 i ty of [place] [phone] Ca dical NAL 220 [facility] 2021-10-21 2021-10-21 Damian [facility] 1.2.840.114 [id number] Univers 00:00:00 00:00:00 Gabriel MOTLEY 350.1.13.10 ity of [place] 4.2.7.2.[place] [phone] Ca dical NAL 092 [facility] 2021-10-13 2021-10-13 Damian [facility] 1.2.840.114 [id number] Univers 00:00:00 00:00:00 Hawaong [place] 350.1.13.10 i ty of [place] 4.2.7.2.[place] [phone] Ca dical NAL 220 [facility] 2021-10-10 2021-10-10 Outpatient R LUIZ [facility] [id number] Univers 13:30:00 13:30:00 SENDIL ity of [facility] 2021-10-02 2021-10-02 Damian [facility] 1.2.840.114 [id number] Univers 00:00:00 00:00:00 Hawaong [place] 350.1.13.10 i ty of [place] 4.2.7.2.[place] [phone] Ca dical NAL 220 [facility] 2021-09-28 2021-09-28 Outpatient R RONALD [facility] [id number] Univers 11:00:00 11:00:00 [facility] 2021-09-21 2021-09-21 Refmerna [facility] 1.2.840.114 [id number] Univers 00:00:00 00:00:00 Sendil Arti [place] 350.1.13.10 ity of [place] 4.[place].2.[place] [phone] [place] 531019 [facility] 2021-09-15 2021-09-15 [facility] [id number] Univers 10:00:00 10:00:00 SENDIL antonio [facility] 2021-09-09 2021-09-09 Outpatient GEETA SHRESTHA [facility] 749 [place] 05:02:00 05:02:00 HN 1203 da [facility] 2021-08-22 2021-08-22 Damian [facility] 1.2.840.114 [id number] Univers 00:00:00 00:00:00 Lauren MOTLEY 350.1.13.10 i ty of [place] 4.2.7.2.[place] [phone] [facility] 220 [facility] 2021-08-02 2021-08-02 Office [facility] 1.2.840.114 [id number] Univers 10:25:58 11:27:59 Visit Senddanyel MOTLEY 350.1.13.10 ity of [place] 4.2.7.2.[place] [phone] [facility] 059 [facility] 2021-08-02 2021-08-02 Outpatient R LUIZ [facility] [id number] Univers 10:00:00 11:27:59 SENDIL shea [facility] 2021-08-02 2021-08-02 Outpatient [facility] [id number] Univers 10:00:00 10:00:00 SENDIL [facility] 2021-08-02 2021-08-02 Patient Raj [facility] 1.2.840.114 [id number] Univers 00:00:00 00:00:00 Outreach Jessica De Jesus TIESHA 350.1.13.10 ity of [place].2.[place] [phone] Ca dictn NAL 9 [facility] 2021-08-02 2021-08-02 Patient Raj, [facility] 1.2.840.114 [id number] Univers 00:00:00 00:00:00 Outreach Jessica MOTLEY 350.1.13.10 ity of [place].2.[place] [phone] [address] 2021-07-25 2021-07-25 Refill [facility] 1.2.840.114 [id number] Univers 00:00:00 00:00:00 Zeny Motley 350.1.13.10 ity of [place].7.2.[place] [phone] [address] 2021-07-25 2021-07-25 Refill [facility] 1.2.840.114 [id number] Univers 00:00:00 00:00:00 Zeny Motley 350.1.13.10 ity of [place].2.7.2.[place] [phone] [place] 273419 [facility] 2021-07-20 2021-07-20 Emergency [facility] 1.2.840.114 [id number] Univers 11:29:00 17:27:00 Soledad Motley 350.1.13.10 ity of [place].2.7.2.[place] [phone] [facility] [address] [place] [address] 2021-07-20 2021-07-20 Outpatient R [facility] [id number] Univers 09:00:00 09:00:00 ity of [facility] 2021-07-15 2021-07-15 Telephone Luiz [facility] 1.2.446.713 [id number] Univers 00:00:00 00:00:00 Sendil Arti [place] 350.1.13.10 ity of [place].2.[place] [phone] Ca dical nal 059 [facility] 2021-07-14 2021-07-14 [facility] 1.2.840.114 [id number] Univers 00:00:00 00:00:00 Gabriel Manule Asencioton 350.1.13.10 ity of [place].2.[place] [phone] Ca dical nal 092 [facility] 2021-07-13 2021-07-13 Outpatient R LUIZ [facility] [id number] Univers 10:30:00 10:30:00 [facility]01 2021-07-01 Hot Tamale Man Pcp-Lab [facility] 1.2.840.114 [id number] Univers 11:06:09 11:21:09 Visit Armen, Kolton Leti PRIMARY 350.1.13. 10 ity of [place]2.[place].2.[place] [phone] Ca dical [address] [place] 2021-07-01 2021-07-01 Office Daina Hurtado [facility] 1.2.840.114 [id number] Univers 09:35:16 11:06:16 Visit Armen, Kolton Leti PRIMARY 350.1.13. 10 ity of [place] 4.2.7.2.[place] [phone] Ca dical [address] [place] 2021-07-01 2021-07-01 Outpatient R ARMEN [facility] [id number] Univers 10:00:00 10:00:00 KOLTON ity [facility] 2021-06-29 2021-06-29 Outpatient R RONALD [facility] [id number] Univers 11:30:00 11:30:00 WENTONG ity [facility] 2021-06-27 2021-06-27 [facility] 1.2.353.491 [id number] Univers 12:17:03 23:59:00 Encounter [facility] 350.1.13.10 it[place] of [place] 4.2.7.2.686 Shamir as Kosta?Blea [phone] Ca gaurav cervantes [address] [facility] 2021-06-27 2021-06-27 Office Jami [facility] 1.2.840.114 [id number] Univers 10:55:22 12:12:24 Visit Gabriel [facility] 350.1.13.10 ity of [place] 4.2.7.2.686 Shamir as Kosta?Blea [phone] Ca gaurav cervantes [address] [facility] 2021-06-27 2021-06-27 Outpatient R GABRIEL FARRELL [facility] [id number] Univers 11:00:00 11:00:00 GABRIEL FARRELL ity [facility] 2021-06-23 2021-06-23 Refmerna Dee [facility] 1.2.840.114 [id number] Univers 00:00:00 00:00:00 Zeny Motley 350.1.13.10 ity [facility] [place] [phone] Ca cecitn nal 059 [facility] 2021-06-23 2021-06-23 Refmerna Dee [facility] 1.2.840.114 [id number] Univers 00:00:00 00:00:00 Zeny Motley 350.1.13.10 ity of [place] [phone] [facility] nal 059 [facility] 2021-06-21 2021-06-21 Outpatient R [facility] [id number] Univers 10:00:00 10:00:00 ity of [facility] 2021-06-03 2021-06-03 Outpatient R [facility] [id number] Univers 07:00:00 07:00:00 ity of [facility] 2021-06-02 2021-06-02 [facility]merna [facility] 1.2.840.114 [id number] Univers 00:00:00 00:00:00 Lauren Motley 350.1.13.10 i ty of [place].2.[place] [phone] Ca dical nal 220 [facility] 2021-06-02 2021-06-02 Refill [facility] 1.2.840.114 [id number] Univers 00:00:00 00:00:00 Lauren Motley 350.1.13.10 i ty of [place]2.7.2.[place] [phone] Ca dical nal 220 [facility] 2021-05-24 2021-05-24 Refill [facility] 1.2.840.114 [id number] Univers 00:00:00 00:00:00 Gabriel Motley 350.1.13.10 ity of [place].7.2.[place] [phone] Ca dical nal 092 [facility] 2021-05-20 2021-05-20 Emergency [facility] 1.2.840.114 [id number] Univers 10:48:00 14:44:00 Halima Motley 350.1.13.10 i ty of [place]2.[place].2.[place] [phone] [facility] [address] [place] 2021-05-12 2021-05-12 Office [facility] 1.2.840.114 [id number] Univers 10:06:22 10:32:45 Visit Zeny [place] 350.1.13.10 it[place] of [place].2.[place] [phone] Ca dictn nal 059 [facility] 2021-05-12 2021-05-12 Outpatient R LUIZ [facility] [id number] Univers 10:00:00 10:00:00 SENDIL ity of [facility] 2021-05-12 2021-05-12 Telephone Dee Dee Dee 1.2.224.422 [id number] Univers 00:00:00 00:00:00 Senddanyel Briggs 350.1.13.10 ity of [facility] 4.2.7.2.686 Shamir as [phone] [address] 2021-05-10 2021-05-10 Office Jami [facility] 1.2.840.114 [id number] Univers 10:44:13 12:09:36 Visit Gabriel Motley 350.1.13.10 ity of [place].2.[place] [phone] Ca dical nal 092 [facility] 2021-05-10 2021-05-10 Outpatient R GABRIEL FARRELL [facility] [id number] Univers 11:00:00 11:00:00 JAMI GABRIEL ity [facility] 2021-05-06 2021-05-06 Hot Tamale Man 2, Adc Lab [facility] 1.2.840.114 [id number] Univers 11:45:50 12:00:50 Visit Zeny Dee 350.1.13. 10 ity [facility] [place].2.[place] [phone] [facility] 353 [facility] 2021-05-06 2021-05-06 Outpatient R LUIZ [facility] [id number] Univers 11:45:00 11:45:00 [facility]-05[facility]02 2021-05-02 Outpatient GREGORIO MIGUEL [facility] [id number] Univers 08:00:00 08:00:00 ity [facility] 2021-05-02 2021-05-02 Outpatient GREGORIO MIGUEL [facility] [id number] Univers 08:00:00 08:00:00 ity [facility] 2021-04-20 2021-04-20 Telephone Jami [facility] 1.2.840.114 [id number] Univers 00:00:00 00:00:00 Gabriel Motley 350.1.13.10 ity [facility] 4.2.7.2.[place] [phone] Ca dical nal 092 [facility] 2021-04-19 2021-04-19 Refmerna Cardenas [facility] 1.2.840.114 [id number] Univers 00:00:00 00:00:00 Lauren Motley 350.1.13.10 i ty of [place] [phone] Ca dical nal 220 [facility] 2021-04-15 2021-04-[address] [facility] 1.2.521.194 [id number] Univers 17:59:00 22:13:00 [place] Motley 350.1.13.10 ity of [place].2.[place] [phone] [facility] [address] [place] 2021-04-14 2021-04-14 Telephone [facility] 1.2.840.114 [id number] Univers 00:00:00 00:00:00 Gabriel Motley 350.1.13.10 ity of [place] [phone] Ca dictn nal 092 [facility] 2021-04-08 2021-04-08 Telephone Daina Hurtado [facility] 1.2.840.114 [id number] Univers 00:00:00 00:00:00 PRIMARY 350.1.13.10 it y of [place] [phone] [facility] [address] [place] 2021-04-07 2021-04-07 Outpatient Anthony DEE [facility] [id number] Univers 07:00:00 07:00:00 SENDIL ity of [facility] 2021-04-05 2021-04-05 [facility] 1.2.333.211 [id number] Univers 10:13:15 23:59:00 Encounter Gabriel Motley 350.1.13.10 ity of [place].2.[place] [phone] [facility] [address] [place] 2021-04-05 2021-04-05 Outpatient GABRIEL GUAJARDO [facility] [id number] Univers 00:00:00 00:00:00 GABRIEL FARRELL ity [facility] 2021-04-05 2021-04-05 Telephone Dee Dee Dee 1.2.489.157 [id number] Univers 00:00:00 00:00:00 Senddanyel Briggs 350.1.13.10 ity of Hospital 4.2.7.2.686 Shamir as [phone] [facility] [address] 2021-04-05 2021-04-05 Orders Doctor GAUDENCIO 1.2.840.114 [id number] Univers 00:00:00 00:00:00 Only Unassigned, MARCO 350.1.13.10 ity of [place] [facility] 4.2.7.2.686 Shamir as [phone] [facility] [address] 2021-04-01 2021-04-01 Telephone Ronald [facility] 1.2.651.783 [id number] Univers 00:00:00 00:00:00 Wentong MULTISPEC 350.1.13.10 ity of [facility] 4.2.7.2.686 [place] [phone] [facility] [place] [address] [facility] 2021-04-01 2021-04-01 Telephone Jami MODRAKE 1.2.840.114 [id number] Univers 00:00:00 00:00:00 Gabriel Motley 350.1.13.10 ity of [place]2.[place].2.[place] [facility] [phone] [facility] 092 [facility] 2021-03-31 2021-03-31 Outpatient GREGORIO MIGUEL [facility] [id number] Univers 10:00:00 10:00:00 ity of [facility] 2021-03-28 2021-03-28 Outpatient GABRIEL GUAJARDO [facility] [id number] Univers 00:00:00 00:00:00 GABRIEL FARRELL ity [facility] 2021-03-25 2021-03-25 Telephone Dee Dee Dee 1.2.639.415 [id number] Univers 00:00:00 00:00:00 Zeny Briggs 350.1.13.10 ity of [facility] 4.2.7.2.686 Shamir as [phone] [place] [address] [address] 2021-03-25 2021-03-25 Refill Luiz MODRAKE 1.2.840.114 [id number] Univers 00:00:00 00:00:00 Senddanyel Motley 350.1.13.10 ity of [place].2.[place] [phone] Ca dical nal 059 [facility] 2021-03-24 2021-03-24 Hot Tamale Man 2, Adc Lab [facility] 1.2.840.114 [id number] Univers 11:46:50 12:01:50 Visit Zeny Dee 350.1.13. 10 ity of [place] 4.[place].2.[place] [phone] [facility] 353 [facility] 2021-03-24 2021-03-24 Office Luiz [facility] 1.2.840.114 [id number] Univers 11:00:39 11:41:24 Visit Zeny Motley 350.1.13.10 ity of [place] 4[place].2.[place] [phone] [facility] 059 [facility] 2021-03-24 2021-03-24 Outpatient R LUIZ [facility] [id number] Univers 11:00:00 11:00:00 SENDIL itantonio [facility] 2021-03-15 2021-03-15 Office Ronald [facility] 1.2.840.114 [id number] Univers 13:25:31 14:19:11 Visit Lauren Mot[place] 350.1.13.10 i ty of [place].2.[place] [phone] [facility] 220 [facility] 2021-03-15 2021-03-15 Outpatient R RONALD [facility] [id number] Univers 13:30:00 13:30:00 HAWAONG ity [facility] 2021-03-13 2021-03-13 Nurse GAUDENCIO Ayala 1.2.052.192 [id number] Univers 00:00:00 00:00:00 Triage Gavin BRIGGS 350.1.13.10 it y of [facility] 4.2.7.2.686 Shamir as [phone] [address] 2021-03-12 2021-03-12 Emergency Jarethuncindy, [facility] 1.2.840.114 [id number] Univers 16:00:00 18:48:00 Soledad Motley 350.1.13.10 ity of [place].2.[place] [phone] [facility] [address] [place] 2021-03-10 2021-03-10 Hot Tamale Man Pcp-Lab [facility] 1.2.840.114 [id number] Univers 10:18:51 10:33:51 Visit Paulie Duong PRIMARY 350.1.13.10 ity of [place].2.[place] [phone] Ca dical [address] [place] 2021-03-10 2021-03-10 Office Daina Hurtado [facility] 1.2.840.114 [id number] Univers 09:13:12 10:19:05 Visit Paulie Duong PRIMARY 350.1.13.10 ity of [place]2.7.2.[place] [phone] Ca dical [address] [place] 2021-03-10 2021-03-10 Outpatient Anthony DUONG [facility] [id number] Univers 10:00:00 10:00:00 PAULIE ity of [facility] 2021-03-10 2021-03-10 [facility]merna [facility] 1.2.840.114 [id number] Univers 00:00:00 00:00:00 Lauren Motley 350.1.13.10 i ty of [place].2.[place] [phone] Ca dical nal 220 [facility] 2021-03-09 2021-03-09 Chivo Farrell [facility] 1.2.840.114 [id number] Univers 00:00:00 00:00:00 Gabriel Motley 350.1.13.10 ity of [place] 4[place].7.2.[place] [phone] Ca dical nal 092 [facility] 2021-03-05 2021-03-05 Outpatient GABRIEL GUAJARDO [facility] [id number] Univers 10:15:32 23:59:00 [facility]-03-05 2021-03-05 [facility] 1.2.481.984 [id number] Univers 10:15:32 23:59:00 Encounter Gabriel Manuel [place] 350.1.13.10 ity of [place] 4.2.7.2.686 [facility] [phone] [address] 2021-03-05 2021-03-05 [facility] 1.2.838.514 [id number] Univers 10:00:00 10:14:00 Encounter Gabriel Motley 350.1.13.10 ity of [place] 4.2.7.2.686 [facility] [phone] [address] 2021-03-05 2021-03-05 Outpatient R JAMIGABRIEL BIRMINGHAM [facility] [id number] Univers 00:00:00 00:00:00 GABRIEL FARRELL [facility] 2021-03-05 2021-03-05 Orders Doctor GAUDENCIO 1.2.840.114 [id number] Univers 00:00:00 00:00:00 Only Unassigned, MARCO 350.1.13.10 ity of [place] [facility] 4.2.7.2.686 Shamir as [phone] [address] 2021-02-24 2021-02-24 Outpatient GREGORIO MIGUEL [facility] [id number] Univers 10:00:00 10:00:00 ity of [facility] 2021-02-23 2021-02-23 Damian Cardenas [facility] 1.2.840.114 [id number] Univers 00:00:00 00:00:00 Lauren Motley 350.1.13.10 i ty of [place].2.[place].2.[place] [phone] Ca dical [facility] 220 [facility] 2021-02-23 2021-02-23 Orders Doctor GAUDENCIO 1.2.840.114 [id number] Univers 00:00:00 00:00:00 Only Unassigned, MAR[place] 350.1.13.10 [place]y of [place] 4.2.7.2.686 Shamir as [phone] [address] 2021-02-23 2021-02-23 Refill Luiz [facility] 1.2.840.114 [id number] Univers 00:00:00 00:00:00 Senddanyel Chi Tiesha 350.1.13.10 ity of [place] 4.2.7.2.[place] [phone] Ca dical nal 059 [facility] 2021-02-21 2021-02-21 [facility] 1.2.840.114 [id number] Univers 00:00:00 00:00:00 Lauren Motley 350.1.13.10 i ty of [place] 4.2.7.2.[place] [phone] Ca dical nal 220 [facility] 2021-02-16 2021-02-16 [facility] 1.2.840.114 [id number] Univers 00:00:00 00:00:00 Lauren Motley 350.1.13.10 i ty of [place] 4[place].7.2.[place] [phone] Ca dical nal 220 [facility] 2021-02-01 2021-02-01 Outpatient Anthony SIMS [facility] [id number] Univers 15:00:00 15:00:00 NICOLASA ity of [facility] 2021-01-25 2021-01-25 Office Jami [facility] 1.2.840.114 [id number] Univers 08:49:39 12:01:27 Visit Gabriel Motley 350.1.13.10 ity of [place] 4[place].7.2.[place] [phone] Ca dical nal 092 [facility] 2021-01-25 2021-01-25 Office Fabiola [facility] 1.2.840.114 [id number] Univers 08:40:54 11:32:56 Visit Hannah Motley 350.1.13.10 ity of [place] 4[place].7.2.[place] [phone] Ca dical nal 205 [facility] 2021-01-25 2021-01-25 Outpatient R JAMIGABRIEL [facility] [id number] Univers 08:40:00 08:40:00 JAMI, GABRIEL [facility] 2021-01-18 2021-01-18 Outpatient GUU_SHENG_Y [facility] [address] [place] 03:31:00 03:31:00 [place] [id number] [facility] 2021-01-16 2021-01-16 Outpatient GUU_SHENG_Y [facility] [address] [place] 03:17:00 03:17:00 [id number] [facility] 2021-01-11 2021-01-11 Outpatient R VINOD FLORES [facility] [id number] Univers 09:30:00 09:30:[facility]11 2021-01-11 Letter Clinic, [facility] UNIVERSIT 1.2.840.114 [id number] Univers 00:00:00 00:00:00 (Out) Neurology Y HEALTH [id number] ity of [facility] CLINICS [id number] [place] [phone] [place] [id number] [place] 2021-01-07 2021-01-07 [facility] 1.2.840.114 [id number] Univers 11:04:25 11:19:25 ne Visit Hannah Motley [id number] ity [facility] [id number] Meghann Beckman [phone] [facility] 205 [facility] 2021-01-07 2021-01-07 Outpatient R FABIOLA [facility] [id number] Univers 11:15:00 11:15:00 HANNAH paul [facility] 2021-01-03 2021-01-03 Outpatient R SHIRA [facility] [id number] Univers 13:00:00 13:00:00 AUGUST [facility] 2021-01-03 2021-01-03 [facility] 1..840.114 [id number] Univers 00:00:00 00:00:00 Hannah Motley [id number] [id number] [phone] Ca dical nal 205 [facility] 2020-12-30 2020-12-30 [facility] 1.2.840.114 [id number] Univers 00:00:00 00:00:00 Lauren Motley 350.1.13.10 i [place] [phone] Ca dical nal 220 [facility] 2020-12-28 2020-12-28 Outpatient R RONALD [facility] [id number] Univers 13:30:00 13:30:00 WENTONG ity of [facility] 2020-12-27 2020-12-27 Telephone Vinod Flores [facility] 1.2.840.11 [id number] Univers 00:00:00 00:00:00 R Y 350.1.13.10 it y of [facility] 4.2.7.2.686 Shamir as BANK [phone] [facility] BLDG. [address] 2020-12-27 2020-12-27 Refill [facility] 1.2.840.114 [id number] Univers 00:00:00 00:00:00 Zeny Motley 350.1.13.10 [place] [phone] [facility] nal 059 [facility] 2020-12-23 2020-12-23 Outpatient R DAINA HURTADO [facility] [id number] Univers 10:00:00 10:00:00 ity of [facility] 2020-12-23 2020-12-23 Outpatient R VINOD FLORES [facility] 081 [id number] Univers 09:00:00 09:00:00 ity of [facility] 2020-12-21 2020-12-21 [facility] 1.2.039.653 [id number] Univers 14:23:36 23:59:00 Encounter Hannah Motley 350.1.13.10 it[place] [phone] [facility] [address] 2020-12-21 2020-12-21 [facility] Radiology [facility] 1.2.840.114 [id number] Univers 14:23:03 23:59:00 Encounter [place] 350.1.13.10 ity of [place] [phone] [facility] [address] 2020-12-21 2020-12-21 Hot Tamale Man Amanda [facility] Main [facility] 1.2.8 40.114 [id number] Univers 15:44:08 15:59:08 Visit Vinod Flores 350.1.13.10 [place] of [place] [phone] Ca dical nal 353 [facility] 2020-12-21 2020-12-21 [facility] Radiology [facility] 1.2.840.114 [id number] Univers 14:22:14 14:22:14 Encounter [place] 350.1.13.10 [place] of [place] [phone] [facility] [address] 2020-12-21 2020-12-21 Outpatient R RADIOLOGY [facility] [id number] Univers 00:00:00 00:00:00 ity of [facility] 2020-12-17 2020-12-17 Telephone [facility] 1.2.840.114 [id number] Univers 00:00:00 00:00:00 Hannah Motley 350.1.13.10 [place] [phone] Ca dical nal [address] 2020-12-15 2020-12-15 Outpatient GUU_SHENG_Y [facility] [phone] [place] 04:24:00 04:24:00 [place] [address] da [facility] 2020-12-14 2020-12-14 Outpatient R FABIOLA [facility] [id number] Univers 11:15:00 11:15:00 HANNAH paul [facility] 2020-12-13 2020-12-13 Telephone Vinod Flores [facility] 1.2.840.11 [id number] Univers 00:00:00 00:00:00 R Y 350.1.13.10 it y of NATIONAL 4.2.7.2.686 Shamir as BANK [phone] [facility]. [address] 2020-12-07 2020-12-07 Outpatient R VINOD FLORES [facility] [id number] Univers 09:00:00 09:00:00 ity of [facility] 2020-11-25 2020-11-25 Refmerna [facility] 1.2.840.114 [id number] Univers 00:00:00 00:00:00 Lauren Motley 350.1.13.10 i [place] [phone] Ca dical nal 220 [facility] 2020-11-25 2020-11-25 Refmerna Dee [facility] 1.2.840.114 [id number] Univers 00:00:00 00:00:00 Zeny Motley 350.1.13.10 it[place] of [place] [phone] Ca dical nal 059 [facility] 2020-11-25 2020-11-25 Telephone Vinod Flores [facility] 1.2.840.11 4 [id number] Univers 00:00:00 00:00:00 R Y 350.1.13.10 it y of NATIONAL 4.2.7.2.686 Shamir as BANK [phone] [facility]. [address] 2020-11-25 2020-11-25 Telephone Nathan [facility] 1.2.840.114 [id number] Univers 00:00:00 00:00:00 Amanda [facility] 350.1.13.10 i ty of [facility] 4.2.7.2.[place] [phone] [facility] [address] 2020-11-25 2020-11-25 Refmerna [facility] 1.2.840.114 [id number] 00:00:00 00:00:00 Lauren Asencioton 350.1.13.10 [place] 4.2.7.2.686 Professio [phone] [facility] 220 [facility] 2020-11-25 2020-11-25 Refmerna Dee MODRAKE 1.2.840.114 [id number] 00:00:00 00:00:00 Senddanyel Chi Tiesha 350.1.13.10 [place] 4.2.7.2.686 Professio [phone] [facility] 059 [facility] 2020-11-25 2020-11-25 Telephone Vinod Flores .2.840.11 4 [id number] 00:00:00 00:00:00 R Y 350.1.13.10 [facility] 4.2.7.2.686 [facility] [phone] BLDG. 136 2020-11-17 2020-11-17 Office [facility] 1.2.840.114 [id number] Univers 14:46:41 16:01:27 Visit Lauren Motley 350.1.13.10 i ty [facility] [place].2.7.2.[place] [phone] Ca dical [facility] 220 [facility] 2020-11-17 2020-11-17 Outpatient R RONALD [facility] [id number] Univers 15:00:00 15:00:00 LAUREN valdivia of [facility] 2020-11-16 2020-11-16 Outpatient R FABIOLA [facility] [id number] Univers 10:00:00 10:00:00 HANNAH paul [facility] 2020-11-15 2020-11-15 Telephone [facility] 1.2.590.903 [id number] Univers 00:00:00 00:00:00 Lauren MULTISPEC 350.1.13.10 ity [facility] 4.2.7.2.[place] [phone] [facility] AND BALL [address] [facility] 2020-11-12 2020-11-12 Telephone Zeke Ramirez [facility] 1.2.840.114 [id number] Univers 00:00:00 00:00:00 PRIMARY 350.1.13.10 it y of C[place].2.[place].2.[place] [phone] Ca dical [address] 2020-11-11 2020-11-11 Office [facility] 1.2.840.114 [id number] Univers 09:07:13 15:23:52 Visit [facility] PRIMARY 350.1.13.10 it y of [place] C[place] 4.2.7.2.[place] [phone] Ca dical [address] 2020-11-11 2020-11-11 Office [facility] 1.2.840.114 [id number] 09:07:13 15:23:52 Visit [facility] 350.1.13.10 [place] CARE 4.2.7.2.686 PAVILLION [phone] [facility] 2020-11-11 2020-11-11 Hot Tamale Man Pcp-Lab [facility] 1.2.840.114 [id number] [facility] 10:52:58 11:07:58 Visit Kolton Ayers Leti PRIMARY 350.1.13. 10 ity of C[place] 4.2.7.2.[place] [phone] Ca dical [address] 2020-11-11 2020-11-11 Outpatient [facility] [id number] Univers 09:40:00 09:40:00 KOLTON ity of [facility] 2020-11-11 2020-11-11 Telephone [facility] 1.2.023.737 [id number] Univers 00:00:00 00:00:00 Zeny Motley 350.1.13.10 it[place] of [place] [phone] Ca dical nal 059 [facility] 2020-11-11 2020-11-11 Telephone Ronald [facility] 1.2.510.519 [id number] Univers 00:00:00 00:00:00 Lauren Motley 350.1.13.10 i ty of [place] [phone] Ca dical nal 220 [facility] 2020-11-10 2020-11-10 Hot Tamale Man Pc, Adc Vascular Room 1 - [facility] 1.2.840.114 [id number] Univers 10:41:02 11:14:28 Visit Zeny Dee 350.1.13. 10 it[place] of [place] [phone] Ca dical nal 059 [facility] 2020-11-10 2020-11-10 Outpatient R LUIZ [facility] [id number] Univers 11:00:00 11:00:00 SENDIL ity [facility] 2020-11-09 2020-11-[address] [facility] [facility] 1.2.840.114 [id number] Univers 09:10:24 11:16:06 Visit Anthony RICKETTS 350.1.13.10 it y of [place] 4.2.[place].2.[place] [phone] [facility] [address] 2020-11-09 2020-11-09 Outpatient R VINOD FLORES [facility] [id number] Univers 09:30:00 09:30:00 ity of [facility] 2020-11-08 2020-11-08 Office [facility] 1.2.840.114 [id number] Univers 11:10:55 11:49:42 Visit Zeny Motley 350.1.13.10 ity [facility] 4.2.7.2.686 [place] [facility] [phone] [facility] 059 [facility] 2020-11-08 2020-11-08 Outpatient R LUIZ [facility] [id number] Univers 11:30:00 11:30:00 SENDIL ity [facility] 2020-11-08 2020-11-08 Orders Doctor RATLIFF 1.2.840.114 [id number] Univers 00:00:00 00:00:00 Only Unassigned, MARCO 350.1.13.10 ity of [place] [facility] 4.2.7.2.686 Shamir as [phone] [facility] [address] 2020-11-04 2020-11-04 Outpatient R LUIZ [facility] [id number] Univers 14:30:00 14:30:00 SENDIL ity of [facility] 2020-11-04 2020-11-04 Telephone [facility] 1.2.918.668 [id number] Univers 00:00:00 00:00:00 Lauren Motley 350.1.13.10 i ty of [place].2.[place] [phone] Ca dical nal 220 [facility] 2020-10-27 2020-10-27 Orders Doctor GAUDENCIO 1.2.840.114 [id number] Univers 00:00:00 00:00:00 Only Unassigned, MARCO 350.1.13.10 ity of [place] [facility] 4.2.7.2.686 Shamir as [phone] [facility] [address] 2020-10-27 2020-10-27 Telephone [facility] 1.2.259.850 [id number] Univers 00:00:00 00:00:00 Sendil Arti Motley 350.1.13.10 [place] of [place]2.[place].2.[place] [phone] Ca dical nal 059 [facility] 2020-10-26 2020-10-26 Office SKINNY Ratliff 1.2.061.155 [id number] Univers 08:15:30 08:42:19 Visit [facility] 350.1.13.10 i ty of [facility] 4.2.7.2.686 Shamir as [phone] [facility] [address] 2020-10-26 2020-10-26 Outpatient Anthony RATLIFF [facility] [id number] Univers 08:00:00 08:00:00 JORGE ity of [facility] 2020-10-20 2020-10-20 Transition Yoselin Dai 1.2.840.114 [id number] Univers 00:00:00 00:00:00 of Care Dagmar Mora 350.1.13.10 i ty of [place].2.7.2.[place] [phone] [facility] [address] 2020-10-16 2020-10-19 Emergency Chiqui Romero 1.2.840. 114 [id number] Univers 10:21:00 14:25:00 Herman Barker 350.1.13. 10 ity [facility] 4.2.7.2.686 Shamir as [phone] [facility] [address] 2020-10-16 2020-10-19 Outpatient X [facility] 045 [id number] Univers 10:21:00 14:25:00 HERMAN ity [facility] 2020-10-18 2020-10-18 Transition Yoselin Dai 1.2.840.114 [id number] Univers 00:00:00 00:00:00 of Care Dagmar Mora 350.1.13.10 i ty of [place] 4.2.7.2.[place] [phone] [facility] [address] 2020-10-12 2020-10-15 Emergency Bipin Salazar [facility] 1.2.840. 114 [id number] Univers 16:41:00 10:53:00 Bryn Knutson 350.1.13.10 ity [facility] 4.2.7.2.686 [place] [phone] [facility] [address] 2020-10-12 2020-10-15 Outpatient X [facility] [place] [id number] Univers 16:41:00 10:53:00 BRYN [facility] 2020-10-15 2020-10-15 Telephone [facility] 1.2.543.915 [id number] Univers 00:00:00 00:00:00 Zeny Motley 350.1.13.10 ity [facility] 4.2.7.2.[place] [phone] [facility] 059 [facility] 2020-10-14 2020-10-14 Outpatient Anthony CARROLL [facility] [id number] Univers 15:30:00 15:30:00 RASHEED valdivia [facility] 2020-10-12 2020-10-12 [facility] 1.2.840.114 [id number] Univers 06:37:51 16:40:00 Encounter Oracio BARBER 350.1.13.10 ity of CARE 4.2.7.2.[place] C[place] AT [phone] Ca cecimarina MILLER 8[address] [facility] 2020-10-12 2020-10-12 Outpatient R JARRETT [facility] [id number] Univers 00:00:00 00:00:00 ORACIO valdivia o f [facility] 2020-10-12 2020-10-12 Nurse GAUDENCIO Castro 1.2.840.114 [id number] Univers 00:00:00 00:00:00 Triage Jennifer Casey BRIGGS 350.1.13.10 i ty of [facility] 4.2.7.2.686 Shamir as [phone] [address] 2020-10-11 2020-10-11 Outpatient R VINOD FLORES [facility] [id number] Univers 10:00:00 10:00:00 [facility] 2020-10-06 2020-10-06 [facility] 1.2.840.114 [id number] Univers 00:00:00 00:00:00 Zeny Motley 350.1.13.10 it[place] of [place] [phone] [facility] nal [address] [place] [address] 2020-10-06 2020-10-06 [facility] 1.2.840.114 [id number] Univers 00:00:00 00:00:00 Zeny Motley 350.1.13.10 ity of [place] 4.2.7.2.[place] [phone] Ca dictn nal [address] [place] [address] 2020-10-04 2020-10-04 Outpatient R JEFFY [facility] [id number] Univers 10:00:00 10:00:00 DOTTY [facility] 2020-10-02 2020-10-02 Emergency [facility] 1.2.432.429 [id number] Univers 11:42:00 16:59:00 Chiqui Mot[place] 350.1.13.10 i ty of [place] 4[place]2.[place].2.[place] [phone] [facility] [address] 2020-10-02 2020-10-02 Emergency X NICK, [facility] ERT [id number] Univers 11:42:00 16:59:00 CHIQUI ity of [facility] 2020-10-02 2020-10-02 Orders Doctor GAUDENCIO 1.2.840.114 [id number] Univers 00:00:00 00:00:00 Only Unassigned, MARCO 350.1.13.10 ity of [place] [facility] 4.2.7.2.686 Shamir as [phone] [facility] [address] 2020-09-28 2020-09-28 Office [facility] 1.2.840.114 [id number] Univers 10:52:23 12:14:48 Visit Hannah Motley 350.1.13.10 ity [facility] 4.2.7.2.686 [facility] Professio [phone] Ca dical nal 205 [facility] 2020-09-28 2020-09-28 [facility] [id number] Univers 11:15:00 11:15:00 HANNAH valdivia o f [facility] 2020-09-24 2020-09-24 Outpatient R [facility] [id number] Univers 11:00:00 11:00:00 NA ity of [facility] 2020-09-22 2020-09-22 Telephone [facility] 1.2.945.564 [id number] Univers 00:00:00 00:00:00 [place] MULTISPEC 350.1.13.10 ity of [place] 4.2.7.2.686 [place] [phone] [facility] AND LIZZY [address] [facility] 2020-09-22 2020-09-22 Telephone Vinod FloresIT 1.2.840.11 [id number] Univers 00:00:00 00:00:00 R Y 350.1.13.10 it y of NATIONAL 4.2.7.2.686 Shamir as BANK [phone] [facility] BLDG. [address] 2020-09-15 2020-09-15 Telephone [facility] 1.2.840.114 [id number] Univers 00:00:00 00:00:00 Oracio C SCALEMAN 350.1.13.10 ity of [facility] 4.2.7.2.686 Shamir as MATERNAL [phone] Med ical & CHILD [address] [place] [address] 2020-09-15 2020-09-15 Telephone Jarrett [facility] 1.2.840.114 [id number] Univers 00:00:00 00:00:00 Oracio C SCALEMAN 350.1.13.10 ity of [facility] 4.2.7.2.[address] Shamir [address] [phone] [facility] ical & CHILD [address] [place] [address] 2020-09-14 2020-09-14 Office Ronald [facility] 1.2.840.114 [id number] Univers 15:08:56 16:11:49 Visit [facility] 350.1.13.10 i ty of [place] 4.2.7.2.[place] [phone] Ca dical nal 220 [facility] 2020-09-14 2020-09-14 Outpatient R RONALD [facility] [id number] Univers 15:30:00 15:30:00 [facility] ity [facility] 2020-09-14 2020-09-14 Orders Doctor GAUDENCIO 1.2.840.114 [id number] Univers 00:00:00 00:00:00 Only Unassigned, AMRCO 350.1.13.10 ity of [place] [facility] 4.2.7.2.686 Shamir as [phone] [facility] [address] 2020-09-13 2020-09-13 Telephone Vinod FloresIT 1.2.840.11 [id number] Univers 00:00:00 00:00:00 R Y 350.1.13.10 it y of [facility] 4.2.7.2.686 Shamir as BANK [phone] [facility] BLDG. [address] 2020-09-10 2020-09-10 Outpatient R VINOD FLORES [facility] [id number] Univers 09:00:00 09:00:00 ity [facility] 2020-09-07 2020-09-07 Office Luiz [facility] 1.2.840.114 [id number] Univers 10:31:14 11:01:14 Visit Zeny Motley 350.1.13.10 ity of [place] 4.2.7.2.[place] [phone] Ca dical nal 059 [facility] 2020-09-07 2020-09-07 Outpatient R LUIZ [facility] [id number] Univers 10:30:00 10:30:00 SENDIL [facility] 2020-09-06 2020-09-06 Office [facility] 1.2.417.488 [id number] Univers 14:39:55 15:31:46 Visit Oracio Rolon SC[place] 350.1.13.10 ity of [facility] 4.2.7.2.686 Shamir as MATERNAL [phone] Med ical & CHILD 107 [facility] 2020-09-06 2020-09-06 Outpatient R [facility] [id number] Univers 14:30:00 14:30:00 ity [facility] 2020-09-03 2020-09-03 Transition Yoselin Oneill 1.2.840.114 [id number] Univers 00:00:00 00:00:00 of Care Jacques Mora 350.1.13.10 ity of [place].2.7.2.[place] [phone] [facility] [address] 2020-08-31 2020-09-01 Emergency NickJalenChiqui [facility] 1.2.840. 114 [id number] Univers 13:28:00 13:15:00 Bryn Knutson 350.1.13.10 ity of [place] 4[place].2.[place] [phone] [facility] [address] 2020-08-31 2020-09-01 Outpatient X SAMIR [facility] [place] [id number] Univers 13:28:00 13:15:00 BRYN itantonio [facility] 2020-08-31 2020-08-31 Outpatient R RONALD [facility] [id number] Univers 14:00:00 14:00:00 LAUREN ity [facility] 2020-08-31 2020-08-31 Nurse GAUDENCIO Reed 1.2.840.114 [id number] Univers 00:00:00 00:00:00 Triage Ayesha BRIGGS 350.1.13.10 it y of HOSPITAL 4.2.7.2.686 Shamir as [phone] [address] 2020-08-30 2020-08-30 Office [facility] 1.2.574.806 [id number] Univers 09:37:09 10:06:36 Visit Dotty Motley 350.1.13.10 i ty of [place].7.2.[place] [phone] Ca dical nal 188 [facility] 2020-08-30 2020-08-30 Outpatient R [facility] [id number] Univers 09:30:00 09:30:00 DOTTY valdivia of [facility] 2020-08-27 2020-08-27 Refmerna [facility] 1.2.840.114 [id number] Univers 00:00:00 00:00:00 Senddanyel Motley 350.1.13.10 ity of [place] 4.2.7.2.[place] [phone] Ca dical nal 059 [facility] 2020-08-25 2020-08-25 Telephone Vinod Flores [facility] .2.840.11 4 [id number] Univers 00:00:00 00:00:00 R Y 350.1.13.10 it y of [facility] 4.2.7.2.686 Shamir as BANK [phone] [facility] BLDG. [address] 2020-08-25 2020-08-25 Case [facility] 1.2.673.694 [id number] Univers 00:00:00 00:00:00 Management Dotty Motley 350.1.13.10 ity of [place] 4.2.7.2.[place] [phone] Ca dical nal 188 [facility] 2020-08-24 2020-08-24 Transition Yoselin Longoria 1.2.840.114 [id number] Univers 00:00:00 00:00:00 of Care Azaila Mora 350.1.13.10 it y of [place] 4.2.7.2.686 [place] [phone] [facility] [address] 2020-08-18 2020-08-23 Hospital Bipin Salazar [facility] 1.2.840.1 14 [id number] Univers 11:20:00 15:25:00 Encounter Bryn Knutson Tiesha 350.1.13.10 ity of [place] 4.2.7.2.[place] [phone] [facility] [address] 2020-08-18 2020-08-23 Inpatient X SAMIR [facility] DANIEL [id number] Univers 11:20:00 15:25:00 BRYN ity of [facility] 2020-08-20 2020-08-20 Outpatient [facility] [id number] Univers 08:45:00 08:45:00 HANNAH valdivia o f [facility] 2020-08-12 2020-08-12 Telephone [facility] 1.2.163.632 [id number] Univers 00:00:00 00:00:00 Lauren Motley 350.1.13.10 i ty of [place] 4.2.7.2.[place] [phone] Ca dical nal 220 [facility] 2020-08-06 2020-08-06 Office Vinod [facility] 1.2.840.114 [id number] Univers 09:25:49 11:59:34 Visit R Y 350.1.13.10 it y of [facility] 4.2.7.2.686 Shamir as BANK [phone] [facility] BLDG. [address] 2020-08-06 2020-08-06 Outpatient R VINOD FLORES [facility] [id number] Univers 09:45:00 09:45:00 ity of [facility] 2020-08-06 2020-08-06 Orders Doctor RATLIFF 1.2.840.114 [id number] Univers 00:00:00 00:00:00 Only Unassigned, MARCO [id number] ity of [place] [facility] 4.2.7.2.686 Shamir as [phone] [facility] [address] 2020-08-05 2020-08-05 [facility] 1.2.840.114 [id number] Univers 18:46:00 23:03:00 Wesley Motley 350.1.13.10 i [place] [phone] [facility] [address] [place] 2020-08-03 2020-08-03 Hot Tamale Man Willian, Adc Lab Main [facility] 1.2.8 40.114 [id number] Univers 14:01:51 14:16:51 Visit Vinod Flores [id number] [place] [phone] Ca dical nal 353 [facility] 2020-08-03 2020-08-03 Outpatient R VINOD FLORES [facility] [id number] Univers 14:15:00 14:15:00 ity of [facility] 2020-08-03 2020-08-03 Outpatient R VINOD FLORES [facility] [id number] Univers 09:00:00 09:00:00 ity of [facility] 2020-08-03 2020-08-03 Orders Doctor GAUDENCIO 1.2.840.114 [id number] Univers 00:00:00 00:00:00 Only Unassigned, MARCO [id number] ity of [place] [facility] 4.2.7.2.686 Shamir as [phone] [facility] [address] [place] 2020-08-02 2020-08-02 Telephone [facility] [id number] Univers 00:00:00 00:00:00 Lauren Motley 350.1.13.10 [place] [phone] Ca dical nal 220 [facility] 2020-07-29 2020-07-29 Telephone Cardenas, [facility] 1.2.770.791 [id number] Univers 00:00:00 00:00:00 Lauren Motley 350.1.13.10 [place] [phone] Ca dical nal 220 [facility] 2020-07-29 2020-07-29 Orders Doctor GAUDENCIO 1.2.840.114 [id number] Univers 00:00:00 00:00:00 Only Unassigned, MARCO 350.1.13.10 ity of [place] [facility] 4.2.7.2.686 Shamir as [phone] [facility] [address] 2020-07-28 2020-07-28 [facility] 1.2.840.114 [id number] Univers 13:57:07 15:39:32 Visit Lauren Motley 350.1.13.10 [place] [phone] Ca dical nal 220 [facility] 2020-07-28 2020-07-28 [facility] [id number] Univers 14:30:00 14:30:00 WENTONG ity [facility] 2020-07-28 2020-07-28 [facility]ill [facility] 1.2.840.114 [id number] Univers 00:00:00 00:00:00 Sendil Arti Mot[place] 350.1.13.10 [place] [phone] Ca dical nal 059 [facility] 2020-07-28 2020-07-28 Refill [facility] 1.2.840.114 [id number] Univers 00:00:00 00:00:00 Lauren Asencioton 350.1.13.10 [place] [phone] Ca dictn nal 220 [facility] 2020-07-28 2020-07-28 Telephone Vinod Flores 1.2.840.11 4 [id number] Univers 00:00:00 00:00:00 R Y 350.1.13.10 it y of NATIONAL 4.2.7.2.686 Shamir as BANK [phone] [facility] BLDG. [address] 2020-07-28 2020-07-28 Orders Doctor RATLIFF 1.2.840.114 [id number] Univers 00:00:00 00:00:00 Only Unassigned, MARCO 350.1.13.10 ity of [place] [facility] 4.2.7.2.686 Shamir as [phone] [facility] [address] 2020-07-23 2020-07-23 Telephone [facility] 1.2.783.236 [id number] Univers 00:00:00 00:00:00 Zeny Motley 350.1.13.10 [place] [phone] [place] 992399 [facility] 2020-07-22 2020-07-22 [facility] 1.2.660.713 [id number] Univers 00:00:00 00:00:00 Zeny Motley 350.1.13.10 [place] [phone] [facility] nal 9 [facility] 2020-07-14 2020-07-20 Hot Tamale Man Pc, Adc Vascular Room 1 - [facility] 1.2.840.114 [id number] Univers 14:06:03 12:55:47 Visit Zeny Dee 350.1.13. 10 [place] [phone] [facility] nal 9 [facility] 2020-07-05 2020-07-20 Office [facility] 1.2.840.114 [id number] Univers 13:55:54 12:54:04 Visit Zeny Mot[place] 350.1.13.10 [place] [phone] [address] 2020-07-19 2020-07-19 Telephone Dionte Floresian [facility] ..840.11 4 [id number] Univers 00:00:00 00:00:00 R Y 350.1.13.10 it y of NATIONAL 4.2.7.2.686 Shamir as BANK [phone] [facility] BLDG. [address] 2020-07-14 2020-07-14 Appointmen Pc, Adc Vascular Room 1 - [facility] 1.2.840.114 [id number] Univers 14:06:49 15:02:28 t Zeny Dee 350.1.13. 10 [place] [phone] Ca dical nal 059 [facility] 2020-07-14 2020-07-14 Outpatient R [facility] [id number] Univers 14:00:00 14:00:00 ity of [facility] 2020-07-06 2020-07-06 Office Vinod Flores 1.2.840.114 [id number] Univers 13:31:48 16:13:41 Visit R Y 350.1.13.10 it y of [facility] 4.2.7.2.686 Shamir as BANK [phone] [facility] BLDG. [address] 2020-07-06 2020-07-06 Outpatient R VINOD FLORES [facility] [id number] Univers 13:45:00 13:45:00 ity of [facility] 2020-07-05 2020-07-05 Hot Tamale Man Willian, Adc Lab Main [facility] 1.2.8 40.114 [id number] Univers 15:21:08 15:36:08 Visit Vin[facility]1.13.10 [facility] [place] [phone] Ca dical nal 353 [facility] 2020-07-05 2020-07-05 Outpatient R LUIZ [facility] [id number] Univers 14:30:00 14:30:00 SENDIL ity of [facility] 2020-07-05 2020-07-05 Orders Doctor RATLIFF 1.2.840.114 [id number] Univers 00:00:00 00:00:00 Only Unassigned, MARCO 350.1.13.10 ity of [place] [facility] 4.2.7.2.686 Shamir as [phone] [facility] [address] 2020-06-27 2020-06-27 Nurse GAUDENCIO Villanueva 1.2.840.114 [id number] Univers 00:00:00 00:00:00 Triage Amaris MARCO 350.1.13.10 it y of [facility] 4.2.7.2.686 Shamir as [phone] [facility] [address] 2020-06-17 2020-06-17 Emergency Singer [facility] 1.2.420.477 [id number] Univers 10:56:00 14:46:00 Bipin Tiesha 350.1.13.10 i [place] [phone] [facility] [address] 2020-06-17 2020-06-17 Emergency X SINGER [facility] ERT [id number] Univers 10:56:00 14:46:00 BIPIN ity of [facility] 2020-06-17 2020-06-17 Outpatient R VINOD FLORES [facility] [id number] Univers 08:15:00 08:15:00 ity of [facility] 2020-06-17 2020-06-17 Orders Doctor GAUDENCIO 1.2.840.114 [id number] Univers 00:00:00 00:00:00 Only Unassigned, MARCO 350.1.13.10 it[place] of [place] [facility] 4.2.7.2.686 Shamir as [phone] [facility] [address] 2020-06-11 2020-06-11 Telephone Vinod Flores [facility] 1..840.11 4 [id number] Univers 00:00:00 00:00:00 R Y 350.1.13.10 it y of [facility] 4.2.7.2.686 Shamir as [facility] [phone] [facility] BLDG. [address] 2020-06-10 2020-06-10 Outpatient R LUIZ [facility] [id number] Univers 15:00:00 15:00:00 SENDIL ity [facility] 2020-05-28 2020-05-28 [facility] 1.2.840.114 [id number] Univers 00:00:00 00:00:00 Zeny Motley 350.1.13.10 [place] [phone] Ca dical nal [address] [place] [address] 2020-05-18 2020-05-18 Telephone Luiz [facility] 1.2.131.912 [id number] Univers 00:00:00 00:00:00 Sendil Arti Mot[place] 350.1.13.10 [place] [phone] Ca dical nal 059 [facility] 2020-05-17 2020-05-17 Emergency [facility] 1.2.375.652 [id number] Univers 21:53:00 23:29:00 Tucker Burgess Tiesha 350.1.13.10 [place] [phone] [place] 087[address] [place] 2020-05-15 2020-05-15 Emergency [facility] 1.2.037.403 [id number] Univers 12:43:00 14:50:00 Lindsay Asencioton 350.1.13.10 i [place] [phone] [address] 2020-05-15 2020-05-15 Orders Doctor GAUDENCIO 1.2.840.114 [id number] Univers 00:00:00 00:00:00 Only Unassigned, MARCO 350.1.13.10 ity of [place] [facility] 4.2.7.2.686 Shamir as [phone] [facility] [address] 2020-05-12 2020-05-12 Telephone [facility] 1.2.809.354 [id number] Univers 00:00:00 00:00:00 Zeny Motley 350.1.13.10 [place] [phone] Ca dictn nal 059 [facility] 2020-05-11 2020-05-11 Telephone Vinod Flores [facility] .2.840.11 4 [id number] Univers 00:00:00 00:00:00 R Y 350.1.13.10 it y of [facility] 4.2.7.2.686 Shamir as BANK [phone] [facility] BLDG. [address] 2020-04-29 2020-04-29 Outpatient R VINOD FLORES [facility] [id number] Univers 13:00:00 13:00:00 ity of [facility] 2020-04-29 2020-04-29 [facility]ill [facility] 1.2.840.114 [id number] Univers 00:00:00 00:00:00 Zeny Motley 350.1.13.10 [place] [phone] Ca dical nal 059 [facility] 2020-04-29 2020-04-29 Transition Yoselin Longoria 1.2.840.114 [id number] Univers 00:00:00 00:00:00 of Care Azalia Mora 350.1.13.10 it y of [place].2.[place] [phone] [facility] [address] 2020-04-28 2020-04-28 Transition Yoselin Longoria 1.2.840.114 [id number] Univers 00:00:00 00:00:00 of Care Azalia Mora 350.1.13.10 it y of [place]2.[place] [phone] [facility] [address] 2020-04-25 2020-04-27 [facility] Chiqui Romero [facility] 1.2.840.1 14 [id number] Univers 09:05:34 12:45:00 Encounter Michael Martin 350.1.13.10 [place] [phone] [facility] [address] 2020-04-25 2020-04-27 Inpatient X MICHAEL MARTIN [facility] [place] [id number] Univers 09:05:34 12:45:00 ity of [facility] 2020-04-26 2020-04-26 Telephone Vinod Flores 1.2.840.11 4 [id number] Univers 00:00:00 00:00:00 R Y 350.1.13.10 it y of [place] 4.2.7.2.686 Shamir as BANK [phone] [facility] BLDG. [address] 2020-04-26 2020-04-26 Telephone Vinod Flores [facility] 1.2.840.114 [id number] Univers 00:00:00 00:00:00 R HEALTH 350.1.13.10 it y [place] [phone] [facility] [address] 2020-04-23 2020-04-23 Telephone Vinod Flores [facility] 1.2.840.114 [id number] Univers 00:00:00 00:00:00 R HEALTH 350.1.13.10 it y [place]2.[place] [phone] [facility] [address] 2020-04-19 2020-04-19 Office [facility] 1.2.840.114 [id number] Univers 10:12:26 10:50:59 Visit Senddanyel Motley 350.1.13.10 it[place].2.[place] [facility] [phone] Ca dical nal 059 [facility] 2020-04-19 2020-04-19 Outpatient R [facility] [id number] Univers 10:30:00 10:30:00 SENDIL ity of [facility] 2020-04-19 2020-04-19 Telephone [facility] 1.2.080.672 [id number] Univers 00:00:00 00:00:00 Sendil [facility] 350.1.13.10 [place] [phone] [facility] [address] Office [facility] 2020-04-19 2020-04-19 Orders Doctor GAUDENCIO 1.2.840.114 [id number] Univers 00:00:00 00:00:00 Only Unassigned, MARCO 350.1.13.10 ity [place] [facility] 4.2.7.2.686 Shamir as [phone] [facility] [address] 2020-04-17 2020-04-17 Emergency [facility] 1.2.848.576 [id number] Univers 06:39:18 10:16:00 Tucker Burgess [place] 350.1.13.10 ity of [place].2.[place] [phone] [facility] [address] 2020-04-15 2020-04-15 Office Vinod Flores [facility] 1.2.840.114 [id number] Univers 13:03:09 14:22:23 Visit R HEALTH 350.1.13.10 it y of [place] 4[place]2.7.2.[place] [phone] [facility] [address] 2020-04-15 2020-04-15 Outpatient R VINOD FLORES [facility] [id number] Univers 13:30:00 13:30:00 ity of [facility] 2020-03-25 2020-03-25 Hospital Radiology [facility] 1.2.840.114 [id number] Univers 09:03:00 23:59:00 Encounter [place] 350.1.13.10 ity of [place] 4.2.7.2.686 [facility] [phone] [facility] [address] 2020-03-25 2020-03-25 Outpatient R RADIOLOGY [facility] [id number] Univers 09:01:31 09:02:00 ity of [facility] 2020-03-25 2020-03-25 [facility] Radiology [facility] 1.2.840.114 [id number] Univers 09:00:00 09:02:00 Encounter [place] 350.1.13.10 ity of [place] 4.2.7.2.686 [place] [facility] [phone] [facility] [address] 2020-03-19 2020-03-19 Hot Tamale Man 2, Adc Lab [facility] 1.2.840.114 [id number] Univers 09:25:03 09:40:03 Visit Gabriel Farrell 350.1.13 .10 [place]2.[place] [phone] Ca dical nal 353 [facility] 2020-03-19 2020-03-19 Office Jami [facility] 1.2.840.114 [id number] Univers 08:22:46 09:17:42 Visit Gabriel Mot[place] 350.1.13.10 [place]2.[place] [phone] Ca dical nal 092 [facility] 2020-03-19 2020-03-19 Outpatient R GABRIEL FARRELL [facility] [id number] Univers 08:40:00 08:40:00 GABRIEL FARRELL itantonio of [facility] 2020-03-19 2020-03-19 Orders Doctor RATLIFF 1.2.840.114 [id number] Univers 00:00:00 00:00:00 Only Unassigned, MARCO 350.1.13.10 ity of [place] [facility] 4.2.7.2.686 Shamir as [phone] [facility] [address] 2020-03-06 2020-03-06 Emergency X ROSELIA [facility] ERT [id number] Univers 18:33:28 20:24:00 [facility] 2020-03-02 2020-03-02 Refill Luiz [facility] 1.2.840.114 [id number] Univers 00:00:00 00:00:00 Zeny Motley 350.1.13.10 it[place].2.[place] [facility] [phone] [facility] 059 [facility] 2020-02-26 2020-02-26 Transition Yoselin Oneill 1.2.840.114 [id number] Univers 00:00:00 00:00:00 of Care Jacques Casey Mora 350.1.13.10 ity of [place].2.[place] [phone] [facility] [address] 2020-02-24 2020-02-25 Emergency Nick Chiqui [facility] 1.2.840. 114 [id number] Univers 22:21:43 18:07:00 Vladimir Tay 350.1.13.10 it[place] of [place].2.[place] [phone] [facility] [address] 2020-02-24 2020-02-25 Outpatient X MAGGI [facility] [place] [id number] Univers 22:21:43 18:07:00 VLADIMIR ity [facility] 2020-02-05 2020-02-05 Orders Doctor GAUDENCIO 1.2.840.114 [id number] Univers 00:00:00 00:00:00 Only Unassigned, MARCO 350.1.13.10 ity of [place] [facility] 4.2.7.2.686 Shamir as [phone] [address] 2020-01-23 2020-01-23 Telephone Luiz [facility] 1.2.318.904 [id number] Univers 00:00:00 00:00:00 Zeny Motley 350.1.13.10 [place]2.[place] [phone] Ca dical nal 9 [facility] 2019-11-21 2019-11-21 Office Luiz [facility] 1.2.840.114 [id number] Univers 13:47:28 14:46:31 Visit Zeny Motley 350.1.13.10 ity of [place] 4[place]2.7.2.686 [place] [facility] [phone] Ca dictn nal [address] [place] [address] 2019-11-17 2019-11-17 Emergency [facility] 1.2.955.027 [id number] Univers 08:46:19 10:19:00 Bipin Motley 350.1.13.10 i ty [place].2.[place] [phone] [facility] [address] 2019-11-17 2019-11-17 Emergency X [facility] ERT [id number] Univers 08:46:19 10:19:00 BIPIN ity [facility] 2019-11-17 2019-11-17 Emergency X [facility] ERT [id number] Univers 08:46:19 10:19[facility] 2019-11-17 2019-11-17 Orders Doctor GAUDENCIO 1.2.840.114 [id number] Univers 00:00:00 00:00:00 Only Unassigned, MARCO 350.1.13.10 ity of [place] [facility] 4.2.7.2.686 Shamir as [phone] [facility] [address] 2019-10-29 2019-10-29 Hospital Radiology [facility] 1.2.840.114 [id number] Univers 13:48:00 23:59:00 Encounter Tiesha 350.1.13.10 ity of [place].2.[place] [phone] [facility] [address] 2019-10-29 2019-10-29 Telephone Luzi [facility] 1.2.758.521 [id number] Univers 00:00:00 00:00:00 Zeny Motley 350.1.13.10 [place]2.[place] [phone] Ca dictn nal 059 [facility] 2019-10-15 2019-10-15 Orders Doctor GAUDENCIO 1.2.840.114 [id number] Univers 00:00:00 00:00:00 Only Unassigned, MARCO 350.1.13.10 ity of [place] [facility] 4.2.7.2.686 Shamir as [phone] [facility] [address] 2019-06-04 2019-06-04 Office Luiz [facility] 1.2.840.114 [id number] Univers 13:17:30 14:23:17 Visit Zeny Mot[place] 350.1.13.10 it[place].2.[place] [phone] [place] 273419 [facility] 2019-05-20 2019-05-20 Nurse GAUDENCIO Harding 1.2.840.114 [id number] Univers 00:00:00 00:00:00 Triage Aneatrice MAR[place] 350.1.13.10 ity of HOSPITAL 4.2.7.2.686 Shamir as [phone] [facility] [address] 2019-05-02 2019-05-02 Office Shayan [facility] 1.2.840.114 [id number] Univers 10:32:44 11:35:06 Visit Gaudencio Motley 350.1.13.10 i ty of [place].7.2.[place] [phone] [facility] 377 [facility] 2019-04-29 2019-04-29 Telephone Shayan [facility] 1.2.469.077 [id number] Univers 00:00:00 00:00:00 Gaudencio [place] 350.1.13.10 i ty of [place] [phone] [address] Results Test Description Test Time Test Comments Results Result Comments Source POCT GLUCOSE (AUTOMATED) 2023-01-18 12:47:32 Test Item Value Reference Range Interpretation Comme nts POCT GLU (test code = 5942803024) 295 mg/dL 70-110 H Lab Interpretation (test code = 36928-3) Abnormal [facility] GLUCOSE (AUTOMATED)2023-01-18 12:47:32 Test Item Value Reference Range Interpretation Comments POCT GLU (test code = 4347646668) 295 mg/dL 70-110 H Lab Interpretation (test code = Abnormal 61108-2) [facility] GLUCOSE (AUTOMATED)2022-11-02 13:16:02 Test Item Value Reference Range Interpretation Comments POCT GLU (test code = 3104366292) 195 mg/dL 70-110 H Lab Interpretation (test code = Abnormal 66108-7) [facility] GLUCOSE (AUTOMATED)2022-11-02 13:16:02 Test Item Value Reference Range Interpretation Comments POCT GLU (test code = 0529443456) 195 mg/dL 70-110 H Lab Interpretation (test code = Abnormal 00534-4) [facility] HEMOGLOBIN A1C [id number] 21:35:00 Test Item Value Reference Range Interpretation Comments POCT HBA1C (test code = 4548-4) 7.4 % 4-6 A Lab Interpretation (test code = Abnormal 96697-4) [facility] HEMOGLOBIN A1C [id number] 21:35:00 Test Item Value Reference Range Interpretation Comments POCT HBA1C (test code = 4548-4) 7.4 % 4-6 A Lab Interpretation (test code = Abnormal 29100-6) [facility]
[2023-03-24] MEDS ORDERED: MORPHINE 4 MG/ML SYR ONE (23:27)
[2023-03-24] MEDS ORDERED: ONDANSETRON 4 MG/2 ML VIAL ONE (23:27)
[2023-03-24] MEDS ORDERED: MAGNES/ALUMIN/SIMET 30ML UCUP ONE (23:27)
[2023-03-24] MEDS ORDERED: ASPIRIN 81 MG CHEWABLE TABLET ONE (23:27)
[2023-03-24 23:36] LABS: Absolute Lymphocytes (CBC) 3.1 K/uL (0.7-4.9); Hematocrit 38.3 % (36.0-45.0); Lymphocytes % 34.5 % (15.3-44.8); MCV 88.5 fL (80-100); Protime INR 0.95; RBC Red Blood Cell Count 4.33 M/uL (3.86-4.86)
[2023-03-24 23:55] LABS: ALT/SGPT 27 U/L (13-56); AST/SGOT 13 U/L (15-37); Albumin 3.5 g/dL (3.4-5.0); Alkaline Phosphatase 136 U/L (45-117); BUN Blood Urea Nitrogen 26 mg/dL (7-18); Bicarbonate 26 mEq/L (21-32); Bilirubin Total 0.5 mg/dL (0.2-1.0); Glomerular Filtration Rate 29 ml/min (=/>90); Glucose Level 219 mg/dL (74-106); Magnesium 1.8 mg/dL (1.6-2.4); NT PRO-BNP 75 pg/mL (<125); Potassium 3.7 mEq/L (3.5-5.1); Protein, Total 7.2 g/dL (6.4-8.2); Sodium Level 141 mEq/L (136-145); Troponin High Sensitivity 16.1 pg/mL (<58.9)
[2023-03-24 23:58] LABS: Bilirubin Direct < 0.1 mg/dL (0-0.2); Bilirubin Indirect, Calculated ND mg/dL (0.2-0.8)
--- NOTE | 2023-03-25 04:45 | ER ---
Nurse's Notes [facility] Name: Lauren Nolen Age: 67 yrs Sex: Female : 1955 Arrival Date: 03/24/2023 Time: 23:02 Bed 8 Private MD: Diagnosis: Chest pain, unspecified;Noncardiac chest pain Presentation: 03/24 23:04 Chief complaint: EMS states: She is complaining of chest pain that has been on and off kd3 for 2 days. She is NSR on the 12 lead and vitals are stable. She notices that she gets short of breath and then the chest pain starts. She does have a history of cardiac stents. Coronavirus screen: Vaccine status: Patient reports receiving the 2nd dose of the covid vaccine. Ebola Screen: No symptoms or risks identified at this time. Initial Sepsis Screen: Does the patient meet any 2 criteria? No. Patient's initial sepsis screen is negative. Does the patient have a suspected source of infection? No. Patient's initial sepsis screen is negative. Risk Assessment: Do you want to hurt yourself or someone else? Patient reports no desire to harm self or others. Onset of symptoms was March 24, 2023. 23:04 Method Of Arrival: EMS: [facility] kd3 23:04 Acuity: [place] 3 kd3 Triage Assessment: 23:06 General: Appears uncomfortable, Behavior is calm, cooperative. Pain: Complains of pain kd3 in chest Pain does not radiate. Neuro: Level of Consciousness is awake, alert, obeys commands, Oriented to person, place, time, situation. Cardiovascular: Patient's skin is warm and dry. Respiratory: Airway is patent Trachea midline Respiratory effort is even, unlabored, Respiratory pattern is regular, symmetrical. Historical: - Allergies: 23:06 Demerol (Hives, rash); kd3 - PMHx: 23:06 diabetes mellitus; GERD; Hypertension; kd3 - Immunization history:: Adult Immunizations up to date. - Social history:: Smoking status: Patient reports the use of cigarette tobacco products, denies chronic smoking, but will smoke occasionally. - Family history:: not pertinent. Screenin:[facility] ED Fall Risk Assessment (Adult) History of falling in the last 3 months, kd3 including since admission No falls in past 3 months (0 pts) Confusion or Disorientation No (0 pts) Intoxicated or Sedated No (0 pts) Impaired Gait No (0 pts) Mobility Assist Device Used No (0 pt) Altered Elimination No (0 pt) Score/Fall Risk Level 0 - 2 = Low Risk Maintained a safe environment. Abuse screen: Denies threats or abuse. Denies injuries from another. Nutritional screening: No deficits noted. Tuberculosis screening: No symptoms or risk factors identified. Assessment: 23:07 General: see triage . kd3 Vital Signs: 23:04 Weight 90.72 kg; Height 5 ft. 6 in. ; kd3 23:16 BP 124 / 80; Pulse 88; Resp 16; Temp 98; Pulse Ox 96% on R/A; kd3 23:58 BP 134 / 77; Pulse 84; Resp 16; Pulse Ox 94% on R/A; kd3 18 02:09 BP 102 / 68; Pulse 76; Resp 19; Pulse Ox 94% on R/A; kd3 03:30 BP 137 / 84; Pulse 71; Resp 17; Pulse Ox 94% on R/A; ll3 04:57 BP 121 / 75; Pulse 75; Resp 16; Pulse Ox 99% on R/A; kd3 03/24 23:04 Body Mass Index 32.28 (90.72 kg, 167.64 cm) kd3 ED Course: 03/24 23:04 Patient arrived in ED. sb4 23:04 Elías Cameron MD is Attending Physician. sp4 23:04 Ruby Gaitan, NOMAN is Primary Nurse. kd3 23:06 Triage completed. kd3 23:06 Arm band placed on right wrist. kd3 23:07 Maintain EMS IV. Dressing intact. Good blood return noted. Site clean \T\ dry. Gauge \T\ kd 3 site: 20 g left hand. 23:28 Troponin HS Sent. kd3 23:28 PT-INR Sent. kd3 23:28 NT PRO-BNP Sent. kd3 23:28 Magnesium Sent. kd3 23:28 LFT's Sent. kd3 23:28 CBC with Diff Sent. kd3 23:28 Basic Metabolic Panel Sent. kd3 23:59 Patient has correct armband on for positive identification. kd3 03/25 00:29 XRAY Chest (1 view) In Process Unspecified. EDMS 04:56 No provider procedures requiring assistance completed. IV discontinued, intact, kd3 bleeding controlled, No redness/swelling at site. Pressure dressing applied. Administered Medications: 03/24 23:28 Drug: morphine IVP or IV 4 mg Route: IVP; Infused Over: 4 mins; Site: left hand; kd3 03/25 00:19 Follow up: Response: No adverse reaction; Pain is decreased kd3 03/24 23:28 Drug: Ondansetron IVP 4 mg Route: IVP; Site: right hand; kd3 03/25 00:19 Follow up: Response: No adverse reaction; Nausea is decreased kd3 03/24 23:28 Drug: Aspirin PO Chewable Tablet 324 mg Route: PO; kd3 03/25 00:19 Follow up: Response: No adverse reaction kd3 03/24 23:28 Drug: Alum-Mag Hydroxide-Simeth PO Suspension (200 mg-200 mg-20 mg/5 mL) 30 ml Route: kd3 PO; 03/25 00:19 Follow up: Response: No adverse reaction kd3 Medication: 03/24 23:59 VIS not applicable for this client. kd3 Outcome: 03/25 04:44 Discharge ordered by . sp4 04:57 Discharged to home via wheelchair. kd3 04:57 Condition: stable 04:57 Discharge instructions given to patient, Instructed on discharge instructions, follow up and referral plans. Demonstrated understanding of instructions, follow-up care, medications, Prescriptions given X 1. 04:57 Patient left the ED. kd3 Signatures: Dispatcher [employer] Dina Tang RN RN 3 Ruby Gaitan RN RN kd3 Mariana Harris PA-C PA-C sb4 Potepalov, Sergey, MD MD sp4
--- NOTE | 2023-03-25 04:45 | EDPHYS ---
Physician Documentation [facility] Name: Lauren Nolen Age: 67 yrs Sex: Female : 1955 Arrival Date: 03/24/2023 Time: 23:02 Bed 8 Private MD: ED Physician Elías Cameron HPI: 03/24 23:07 This 67 yrs old Black Female presents to ER via EMS with complaints of chest pain for 2 sp4 days . 03/25 04:38 67-year-old black female history of diabetes, GERD, hypertension, coronary artery sp4 disease presents with midsternal chest pain.. . Historical: - Allergies: 03/24 23:06 Demerol (Hives, rash); kd3 - PMHx: 23:06 diabetes mellitus; GERD; Hypertension; kd3 - Immunization history:: Adult Immunizations up to date. - Social history:: Smoking status: Patient reports the use of cigarette tobacco products, denies chronic smoking, but will smoke occasionally. - Family history:: not pertinent. ROS: 03/25 04:38 Constitutional: Negative for fever, chills, and weight loss, Eyes: Negative for injury, sp4 pain, redness, and discharge, ENT: Negative for injury, pain, and discharge, Neck: Negative for injury, pain, and swelling, Cardiovascular: Negative for palpitations, and edema, positive for chest pain Respiratory: Negative for shortness of breath, cough, wheezing, and pleuritic chest pain, Abdomen/GI: Negative for abdominal pain, nausea, vomiting, diarrhea, and constipation, Back: Negative for injury and pain, : Negative for injury, bleeding, discharge, and swelling, MS/Extremity: Negative for injury and deformity, Skin: Negative for injury, rash, and discoloration, Neuro: Negative for headache, weakness, numbness, tingling, and seizure, Psych: Negative for depression, anxiety, Allergy/Immunology: Negative for hives, rash, and allergies Endocrine: Negative for neck swelling, polydipsia, polyuria, polyphagia, and weight changes Hematologic/Lymphatic: Negative for swollen nodes, abnormal bleeding, and unusual bruising Exam: 04:38 Constitutional: This is a well developed, well nourished patient who is awake, alert, sp4 and in no acute distress. Head/Face: Normocephalic, atraumatic. Eyes: Pupils equal round and reactive to light, extra-ocular motions intact. Lids and lashes normal. Conjunctiva and sclera are not injected. Cornea within normal limits. Periorbital areas with no swelling, redness, or edema. ENT: Nares patent. No nasal discharge, no septal abnormalities noted. Tympanic membranes are normal and external auditory canals are clear. Oropharynx with no redness, swelling, or masses, exudates, or evidence of obstruction, uvula midline. Mucous membranes moist. Neck: Trachea midline, no thyromegaly or masses palpated, and no cervical lymphadenopathy. Supple, full range of motion without nuchal rigidity, or vertebral point tenderness. Chest/axilla: Normal chest wall appearance and motion. Nontender with no deformity. No lesions are appreciated. Cardiovascular: Regular rate and rhythm with a normal S1 and S2. No gallops, murmurs, or rubs. Normal PMI, no JVD. No pulse deficits. Respiratory: Lungs have equal breath sounds bilaterally, clear to auscultation and percussion. No rales, rhonchi or wheezes noted. No increased work of breathing, no retractions or nasal flaring. Abdomen/GI: Soft, non-tender, with normal bowel sounds. No distension or tympany. No guarding or rebound. No evidence of tenderness throughout. Back: No spinal tenderness. No costovertebral tenderness. Skin: Warm, dry with normal turgor. Normal color with no rashes, no lesions, and no evidence of cellulitis. MS/ Extremity: Pulses equal, no cyanosis. Neurovascular intact. Full, normal range of motion. Neuro: Awake and alert, GCS 15, oriented to person, place, time, and situation. Cranial nerves II-XII grossly intact. Motor strength 5/5 in all extremities. Sensory grossly intact. Psych: Awake, alert, with orientation to person, place and time. Behavior, mood, and affect are within normal limits 04:38 ECG was reviewed by the Attending Physician. Normal sinus rhythm with a rate of 88 sp4 Vital Signs: 03/24 23:04 Weight 90.72 kg; Height 5 ft. 6 in. ; kd3 23:16 BP 124 / 80; Pulse 88; Resp 16; Temp 98; Pulse Ox 96% on R/A; kd3 23:58 BP 134 / 77; Pulse 84; Resp 16; Pulse Ox 94% on R/A; kd3 18 02:09 BP 102 / 68; Pulse 76; Resp 19; Pulse Ox 94% on R/A; kd3 03:30 BP 137 / 84; Pulse 71; Resp 17; Pulse Ox 94% on R/A; ll3 04:57 BP 121 / 75; Pulse 75; Resp 16; Pulse Ox 99% on R/A; kd3 03/24 23:04 Body Mass Index 32.28 (90.72 kg, 167.64 cm) kd3 MDM: 03/24 23:08 Patient medically screened. sp4 03/25 04:38 Differential Diagnosis altered mental status. Data reviewed: vital signs, nurses notes, 4 EMS record, old medical records, lab test result(s), EKG, radiologic studies, plain films. Consideration of Admission/Observation Escalation of care including admission/observation considered. ED course: EKG today is normal, initial troponin negative, repeat troponin negative, labs reveal signs of chronic kidney disease, otherwise normal . patient at this time stable for discharge home her pain is completely resolved.. 03/24 23:07 Order name: Basic Metabolic Panel; Complete Time: 03:22 4 03/24 23:07 Order name: CBC with Diff; Complete Time: 03:22 4 03/24 23:07 Order name: LFT's; Complete Time: 03:22 sp4 03/24 23:07 Order name: Magnesium; Complete Time: 03:22 sp4 03/24 23:07 Order name: NT PRO-BNP; Complete Time: 03:22 4 03/24 23:07 Order name: PT-INR; Complete Time: 03:22 sp4 03/24 23:07 Order name: Troponin HS; Complete Time: 03:22 4 03/25 02:51 Order name: Troponin High Sensitivity; Complete Time: 04:37 as6 03/24 23:07 Order name: XRAY Chest (1 view) [facility] 03/24 23:07 Order name: EKG; Complete Time: 23:08 4 03/24 23:07 Order name: Cardiac monitoring; Complete Time: 23:16 4 03/24 23:07 Order name: EKG - Nurse/Tech; Complete Time: 23:16 [facility] 03/24 23:07 Order name: IV Saline Lock; Complete Time: 23:16 sp4 03/24 23:07 Order name: Labs collected and sent; Complete Time: 23:16 sp4 03/24 23:07 Order name: O2 Per Protocol; Complete Time: 23:16 sp4 03/24 23:07 Order name: O2 Sat Monitoring; Complete Time: 23:16 sp4 EC:38 Rate is 88 beats/min. Rhythm is regular, Normal Sinus Rhythm. QRS [place] is Normal. MS sp4 interval is normal. QRS interval is normal. QT interval is normal. T waves are Normal. Clinical impression: Normal ECG. Interpreted by me. Administered Medications: 03/24 23:28 Drug: morphine IVP or IV 4 mg Route: IVP; Infused Over: 4 mins; Site: left hand; 3 03/25 00:19 Follow up: Response: No adverse reaction; Pain is decreased 3 03/24 23:28 Drug: Ondansetron IVP 4 mg Route: IVP; Site: right hand; 3 03/25 00:19 Follow up: Response: No adverse reaction; Nausea is decreased 3 03/24 23:28 Drug: Aspirin PO Chewable Tablet 324 mg Route: PO; kd3 03/25 00:19 Follow up: Response: No adverse reaction 3 03/24 23:28 Drug: Alum-Mag Hydroxide-Simeth PO Suspension (200 mg-200 mg-20 mg/5 mL) 30 ml Route: kd3 PO; 03/25 00:19 Follow up: Response: No adverse reaction kd3 Disposition Summary: 03/25/23 04:44 Discharge Ordered Location: Home sp4 Problem: new sp4 Symptoms: have improved sp4 Condition: Stable sp4 Diagnosis - Chest pain, unspecified sp4 - Noncardiac chest pain sp4 Followup: sp4 - With: Private Physician - When: 7 - 10 days - Reason: Recheck today's complaints Discharge Instructions: - Discharge Summary Sheet sp4 - Nonspecific Chest Pain, Adult, [id number] sp4 Prescriptions: - omeprazole 40 mg Oral capsule,delayed release (e.c.) - take 1 capsule by ORAL route daily; 30 capsule; Refills: 0, Product Selection sp4 Permitted Signatures: Dispatcher [facility] Ruby Romo RN RN kd3 Mariana Harris PA-C PA-C sb4 Frantz Camerony, MD MD sp4
[2023-03-25 05:12] VITALS: TEMP 98
[2023-03-25 05:17] VITALS: BP 121/75; O2SAT 99
--- NOTE | 2023-03-25 22:28 | RAD REPORT ---
EXAM DESCRIPTION: RAD - Chest Single View - 03/25/2023 12:27 am CLINICAL HISTORY: Chest pain COMPARISON: Chest 1 View AP 03/16/2022 TECHNIQUE: Chest 1 View AP FINDINGS: Trachea midline. Heart size and pulmonary vessels within normal limits. Lungs clear without evidence of consolidation, mass, or significant pulmonary edema. No significant pleural effusion or pneumothorax. Mild bilateral acromioclavicular DJD. IMPRESSION: Unremarkable chest radiograph. Electronically signed by: Vishal Ta MD 03/25/2023 1:54 AM CDT Due to temporary technical issues with the PACS/Fluency reporting system, reports are being signed by the in house radiologists without review as a courtesy to insure prompt reporting. The interpreting radiologist is fully responsible for the content of the report.
--- NOTE | 2023-03-26 17:52 | EKG ---
Test Date: 2023-03-24 Test Time: 23:08:23 Chaperon: MEASUREMENT RESULTS: Intervals: Rate: 88 DC: 160 QRSD: 82 QT: 376 QTc: 454 [place]: P: 49 DC: 160 QRS: -15 T: 41 INTERPRETIVE STATEMENTS: Normal sinus rhythm Normal ECG Compared to ECG 03/16/2022 16:51:57 No significant changes Electronically Signed On 03-26-23 17:49:55 CDT by Garcia Christopher
== END 2023-03-25 04:57 | disposition home or self-care (01) ==
LOC: ER 23:02
DX: R07.89 Other chest pain (principal); I10 Essential (primary) hypertension; E11.9 Type 2 diabetes mellitus without complications; F17.210 Nicotine dependence, cigarettes, uncomplicated; Z88.5 Allergy status to narcotic agent
CPT/HCPCS: 93005; 85025; 80048; 36415; 83735; 85610; 80076; 84484 ×2; 83880; 71045; 99284; J2405